=== PATIENT | female | born 1945 | race Caucasian/White ===

== ENCOUNTER 2016-04-25 14:03 | Inpatient (IN) | payer BC, OTHER ==
[~2016-04-25] VITALS: Ht 160 cm; Wt 81.0 kg
[~2016-04-25 14:03] MED LIST: ASPCH81X PO; ATOR-26 PO; CALCTAB65 PO; DYZ PO; GABA1CAP4 PO; LEVO75TA5 PO; METH1TAB5 PO; METO25TA3 PO; MISCCAP80 PO; MULT-506 PO; NTRGSL/4 UT; OXYC-57 PO; PARO1TAB27 PO; PRD/1 PO; SNK PO; TRIA3AER NAE; VALA500T60 PO
[2016-04-25] MEDS ORDERED: SODIUM CHLORIDE 0.9% 1000ML 1,000 ML IV ONE (14:21)
[2016-04-25] MEDS ORDERED: SODIUM CHLORIDE 0.9% 1000ML 1,000 ML IV STA ×2 (14:21→15:07)
[2016-04-25] MEDS ORDERED: PIPERACILLIN/TAZOBACTAM 4.5 GM/100ML D5W IV STA (14:29)
[2016-04-25] MEDS ORDERED: TRIA1SPR4 (14:39)
[2016-04-25] MEDS ORDERED: TRIA37.5 PO (14:39)
--- NOTE | 2016-04-25 14:46 | EMERGENCY ROOM VISIT NOTE ---
History Report prepared by Jeferson: Samson Lopez Under the Supervision of: Dr. Norman Aguilera M.D. First contact with patient: 14:11 Chief Complaint: WOUND INFECTION Stated Complaint: SURG. 04/17-INFECTION ON RT FOOT-REF. BY DOCTOR Nursing Triage Summary: patient reports surgery on 03/17/17 on right foot by Dr Nash. Patient placed on keflex for infection of surgical wound and today foot is more red swollen and foul odor coming from incision. 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 The patient had Charcot foot surgery on right foot on March 17. She has a history of diabetes and takes Metformin. In the past few days, the patient has had worsening swelling and erythema of the foot. Black spots have also appeared on the surgical site. A few days ago, she also started having a yellowish color drainage with some blood. The drainage was also very malodorous. The patient had called the orthopedic surgeon's office who placed her on Keflex without relief. The patient denies any recent falls or injuries, fevers, chills, chest pain, shortness of breath, calf pain/swelling, or any other complaints. Source of History: patient, spouse/significant other Onset: a few days ago Position: foot (right) Quality: other (swelling and erythema) Timing: worsening Modifying Factors (Relieving): other (Keflex without relief) Associated Symptoms: No SOB, No chest pain, No chills, No fevers Review of Systems See HPI for pertinent positives & negatives. A total of 10 systems reviewed and were otherwise negative. Past Medical & Surgical Medical Problems: (1) Charcot's arthropathy Old medical records were reviewed. Nurse's notes were reviewed and I agree with. Recently diagnosed with diabetes Family History Patient reports no known family medical history. Social History Smoking Status: Never Smoker Marital Status: Occupation Status: retired Current/Historical Medications Scheduled Aspirin (Aspirin Chewable), 81 MG PO BID Atorvastatin (Lipitor), 80 MG PO HS Calcium Carbonate-Vitamin D (Calcium 500 + D), 1 CHW PO QPM Gabapentin (Gabapentin), 300 CAP PO TID Levothyroxine Sodium (Levothyroxine Sodium), 75 MCG PO QAM Methenamine Hippurate (Methenamine Hippurate), 1 TAB PO BID Metoprolol Succinate (Toprol Xl), 25 MG PO HS Multivitamin (Multivitamin), 1 TAB PO QPM Nitroglycerin (Nitrostat), 0.4 MG UT PRN Paroxetine (Paxil), 20 MG PO HS Prednisone (Prednisone), 5 MG PO QAM Probiotic Product (Probiotic), 1 CAP PO QAM Senna (Senna Lax), 17.2 MG PO HS Triamterene/Hctz (Dyazide 37.5MG/25MG), 1 TAB PO QAM Valacyclovir (Valtrex), 500 MG PO QAM Miscellaneous Medications Triamcinolone Acetonide (Nasal (Nasacort Allergy 24Hr) Allergies Coded Allergies: Minocycline (Verified Allergy, Mild, HEADACHES, 04/25/16) Tetanus Toxoid (Verified Allergy, Mild, LOCALIZED REACTION, MADE HER FEEL SICK, 04/25/16) Amoxicillin (Verified Adverse Reaction, Unknown, "GOT C-DIFF", 04/25/16) Tetracycline (Verified Adverse Reaction, Unknown, HEADACHES, 04/25/16) Physical Exam Vital Signs Date Time Temp Pulse Resp B/P Pulse Ox O2 Delivery O2 Flow Rate FiO2 04/25/16 15:22 75 20 142/68 97 Room Air 04/25/16 14:36 98 Room Air 04/25/16 14:06 36.6 77 16 129/71 95 Physical Exam General: Non-ill appearing, older female, in no acute distress. HEENT: Normal cephalic atraumatic. Pupils are equal round and reactive to light. Extraocular movements are intact. Oropharynx is pink with moist mucous membranes. No swelling of the mouth lips or tongue. Neck: Supple with a midline trachea. No meningeal signs or stiffness, no JVD or bruits. No Stridor. Chest: Clear to auscultation bilaterally. No wheezes or rhonchi. No increased work of breathing. Heart: regular rate and rhythm. Abdomen: Soft nontender, nondistended without rebound guarding or rigidity. Extremities: Right foot is swollen. There is a black scab laterally with surrounding pink skin. No overt drainage present. Spine/Back. Non tender to palpation. No CVA tenderness Skin: Good turgor without rashes. Neurologic exam: Cranial nerves two through 12 are intact. Motor and sensation are intact and symmetrical throughout. Medical Decision & Procedures ER Provider Diagnostic Interpretation: X-ray results as stated below per interpretation by me and the radiologist: CHEST ONE VIEW PORTABLE CLINICAL HISTORY: Sepsis COMPARISON STUDY: 06/24/2012 FINDINGS: There are postsurgical changes of a midline sternotomy. The heart is normal in size. There is no failure. There is no focal pulmonary consolidation. There are no pleural effusions.[ IMPRESSION: No active disease in the chest. Electronically signed by: Wilfredo Bah M.D. 04/25/2016 2:54 PM Dictated Date/Time: 04/25/2016 2:54 PM RIGHT FOOT 3 VIEWS HISTORY: Right foot infection. COMPARISON: Right foot 03/17/2016. FINDINGS: Extensive fusion throughout the mid foot with with cortical plates and screws. There are areas of heterotopic ossification and fragmentation throughout the midfoot. This suggests partial healing. The hardware appears intact. No significant periprosthetic lucency at this time. No bony erosions identified. However, this is difficult to assess due to the extensive metallic hardware. No fracture or dislocation. Diffuse soft tissue swelling within the mid foot. IMPRESSION: Extensive fusion hardware throughout the midfoot which markedly limits the evaluation for bony destruction. The hardware appears intact. No significant periprosthetic lucency at this time. Significant soft tissue swelling throughout the mid foot. Electronically signed by: Scotty Stevenson M.D. 04/25/2016 3:32 PM Dictated Date/Time: 04/25/2016 3:04 PM Laboratory Results 04/25/16 14:28 Red Blood Count 4.19, Mean Corpuscular Volume 94.7, Mean Corpuscular Hemoglobin 32.2, Mean Corpuscular Hemoglobin Concent 34.0, Mean Platelet Volume 9.6, Neutrophils (%) (Auto) 74.9, Lymphocytes (%) (Auto) 15.6, Monocytes (%) (Auto) 7.6, Eosinophils (%) (Auto) 1.1, Basophils (%) (Auto) 0.3, Neutrophils # (Auto) 9.28, Lymphocytes # (Auto) 1.94, Monocytes # (Auto) 0.94, Eosinophils # (Auto) 0.14, Basophils # (Auto) 0.04 04/25/16 14:28 Test 04/25/16 14:28 04/25/16 14:31 04/25/16 15:33 White Blood Count 12.40 K/uL (4.8-10.8) Red Blood Count 4.19 M/uL (4.2-5.4) Hemoglobin 13.5 g/dL (12.0-16.0) Hematocrit 39.7 % (37-47) Mean Corpuscular Volume 94.7 fL (80-100) Mean Corpuscular Hemoglobin 32.2 pg (25-34) Mean Corpuscular Hemoglobin Concent 34.0 g/dl (32-36) Platelet Count 391 K/uL (130-400) Mean Platelet Volume 9.6 fL (7.4-10.4) Neutrophils (%) (Auto) 74.9 % Lymphocytes (%) (Auto) 15.6 % Monocytes (%) (Auto) 7.6 % Eosinophils (%) (Auto) 1.1 % Basophils (%) (Auto) 0.3 % Neutrophils # (Auto) 9.28 K/uL (1.4-6.5) Lymphocytes # (Auto) 1.94 K/uL (1.2-3.4) Monocytes # (Auto) 0.94 K/uL (0.11-0.59) Eosinophils # (Auto) 0.14 K/uL (0-0.5) Basophils # (Auto) 0.04 K/uL (0-0.2) RDW Standard Deviation 47.8 fL (36.4-46.3) RDW Coefficient of Variation 13.8 % (11.5-14.5) Immature Granulocyte % (Auto) 0.5 % Immature Granulocyte # (Auto) 0.06 K/uL (0.00-0.02) Prothrombin Time 10.8 SECONDS (9.0-12.0) Prothromb Time International Ratio 1.0 (0.9-1.1) Activated Partial Thromboplast Time 24.6 SECONDS (21.0-31.0) Partial Thromboplastin Ratio 0.9 Anion Gap 13.0 mmol/L (3-11) Est Creatinine Clear Calc Drug Dose 56.5 ml/min Estimated GFR () 72.6 Estimated GFR (Non- 62.6 BUN/Creatinine Ratio 19.3 (10-20) Calcium Level 9.6 mg/dl (8.5-10.1) Total Bilirubin 0.8 mg/dl (0.2-1) Aspartate Amino Transf (AST/SGOT) 24 U/L (15-37) Alanine Aminotransferase (ALT/SGPT) 43 U/L (12-78) Alkaline Phosphatase 147 U/L (45-117) Total Protein 7.9 gm/dl (6.4-8.2) Albumin 3.6 gm/dl (3.4-5.0) Globulin 4.3 gm/dl (2.5-4.0) Albumin/Globulin Ratio 0.8 (0.9-2) Bedside Lactic Acid Venous 3.00 mmol/L (0.90-1.70) Bedside Glucose 117 mg/dl (70-90) Laboratory studies as stated above per my review. Medications Administered Medications (Trade) Dose Ordered Sig/Humphrey Route Start Time Stop Time Status Last Admin Dose Admin Sodium Chloride 1,000 ml @ 999 mls/hr Q1H1M STAT IV 04/25/16 14:21 04/25/16 15:21 DC 04/25/16 14:21 999 MLS/HR Vancomycin HCl/ Sodium Chloride (Vancomycin Inj/ Nss 500ml) 532 ml @ 200 mls/hr ONE ONCE IV 04/25/16 15:00 04/25/16 17:39 04/25/16 15:00 200 MLS/HR Piperacillin Sod/ Tazobactam Sod 4.5 gm 4.5 gm NOW STAT IV 04/25/16 14:29 04/25/16 14:30 DC 04/25/16 14:39 4.5 GM Sodium Chloride (Nss 1000ml) 1,000 ml @ 999 mls/hr Q1H1M STAT IV 04/25/16 15:07 04/25/16 16:07 04/25/16 15:14 999 MLS/HR ED Course 1411: Past medical records reviewed. The patient was evaluated in room A12B, and a complete history and physical examination were performed. 1421: Sodium Chloride 1000 ml @ 200 mls/hr IV, Sodium Chloride 1000 ml @ 999 mls /hr IV 1429: Zosyn IV 4.5 gm 1500: Vancomycin HCl 1600 mg/Sodium Chloride 532 ml @ 200 mls/hr IV 1507: Sodium Chloride 1000 ml @ 999 mls/hr IV 1508: Upon reevaluation, the patient is resting comfortably. I discussed the results and treatment plan with the patient. She verbalized agreement of the treatment plan. I spoke with Dr. Prescott, from [facility]. The patient will be evaluated for further management. Medical Decision Differential diagnosis includes but is not limited to wound infection, osteomyelitis, cellulitis, diabetic emergency, electrolyte or metabolic abnormality. This patient comes in as described above. She's had trouble with her right foot after having surgery about a month ago. She has a large scab and she's had drainage and redness. I'm concerned about her having diabetic foot infection. IV access established blood cultures were obtained. She was given broad- spectrum coverage with IV Zosyn and IV vancomycin. I discussed this with the ED pharmacist. Her lactic acid to come back elevated at 3 and her white count was elevated at 12.4. She was given fluid boluses in the ER other was initially normotensive and looks well. I initially ordered a 1 liter IV fluid bolus but ordered a second as well in order to get her abdomen approximately 30 mL/kg fluids. Her x-ray does not show any definite acute bony abnormality or do think she is be admitted for IV antibiotics and further treatment and evaluation. I consulted Dr. Dahl who saw the patient ER will admit her for these measures. Consults Time Called: [phone] Consulting Physician: Dr. Prescott, from [facility] Returned Call: [phone] Prescott, from [facility]. Impression Primary Impression: Sepsis Additional Impressions: Cellulitis of right foot Diabetic foot Scribe Attestation The scribe's documentation has been prepared under my direction and personally reviewed by me in its entirety. I confirm that the note above accurately reflects all work, treatment, procedures, and medical decision making performed by me. Departure Information Dispostion Being Evaluated By Hospitalist Referrals Reno Perez M.D. (PCP) Patient Instructions [facility] Problem Qualifiers
[2016-04-25 14:48] LABS: BASO % 0.3 %; BASO ABS # 0.04 K/uL (0-0.2); COMPLETE YES; EOS % 1.1 %; HEMATOCRIT 39.7 % (37-47); IG% 0.5 %; LYMPH % 15.6 %; LYMPH ABS # 1.94 K/uL (1.2-3.4); MEAN CELL VOLUME 94.7 fL (80-100); MEAN CORPUSCULAR HEMOGLOBIN 32.2 pg (25-34); MEAN PLATELET VOLUME 9.6 fL (7.4-10.4); MONO % 7.6 %; NEUT % 74.9 %; PLATELET COUNT 391 K/uL (130-400); RED BLOOD COUNT 4.19 M/uL (4.2-5.4)
--- NOTE | 2016-04-25 14:56 | DIAGNOSTIC IMAGING REPORT ---
CHEST ONE VIEW PORTABLE CLINICAL HISTORY: Sepsis COMPARISON STUDY: 06/24/2012 FINDINGS: There are postsurgical changes of a midline sternotomy. The heart is normal in size. There is no failure. There is no focal pulmonary consolidation. There are no pleural effusions.[ IMPRESSION: No active disease in the chest. Electronically signed by: Wilfredo Bah M.D. 04/25/2016 2:54 PM Dictated Date/Time: 04/25/2016 2:54 PM
[2016-04-25] MEDS ORDERED: VANCOMYCIN INJ 1,600 MG in SODIUM CHLORIDE 0.9% 500ML 500 ML IV ONE (15:00)
[2016-04-25 15:09] LABS: PARTIAL THROMBOPLASTIN RATIO 0.9; PROTHROMBIN TIME (PATIENT) 10.8 SECONDS (9.0-12.0)
[2016-04-25 15:11] LABS: BUN/CREATININE RATIO 19.3 (10-20); CALCIUM 9.6 mg/dl (8.5-10.1); CREATININE 0.92 mg/dl (0.60-1.20); POTASSIUM 3.6 mmol/L (3.5-5.1)
[2016-04-25 15:14] LABS: ALB/GLOB RATIO 0.8 (0.9-2)
--- NOTE | 2016-04-25 15:34 | DIAGNOSTIC IMAGING REPORT ---
RIGHT FOOT 3 VIEWS HISTORY: Right foot infection. COMPARISON: Right foot 03/17/2016. FINDINGS: Extensive fusion throughout the mid foot with with cortical plates and screws. There are areas of heterotopic ossification and fragmentation throughout the midfoot. This suggests partial healing. The hardware appears intact. No significant periprosthetic lucency at this time. No bony erosions identified. However, this is difficult to assess due to the extensive metallic hardware. No fracture or dislocation. Diffuse soft tissue swelling within the mid foot. IMPRESSION: Extensive fusion hardware throughout the midfoot which markedly limits the evaluation for bony destruction. The hardware appears intact. No significant periprosthetic lucency at this time. Significant soft tissue swelling throughout the mid foot. Electronically signed by: Scotty Stevenson M.D. 04/25/2016 3:32 PM Dictated Date/Time: 04/25/2016 3:04 PM
[2016-04-25] MEDS ORDERED: ALUMINUM/MAGNESIUM/SIMETH (MAALOX MAX) 30 ML UDC PO PRN (16:30)
[2016-04-25] MEDS ORDERED: GLUCOSE 40% GEL 15 GM TUBE PO PRN (16:30)
[2016-04-25] MEDS ORDERED: MAGNESIUM HYDROXIDE SUSP 30 ML UDC PO PRN (16:30)
[2016-04-25] MEDS ORDERED: LORAZEPAM 2 MG/ML 1 ML VIAL IV PRN ×2 (16:30)
[2016-04-25] MEDS ORDERED: DiphenhydrAMINE HCL 50 MG/ML VIAL IV PRN (16:30)
[2016-04-25] MEDS ORDERED: BISACODYL 10 MG SUPP PR PRN (16:30)
[2016-04-25] MEDS ORDERED: NITROGLYCERIN 0.4 MG SL PER TAB CHARGE UT PRN (16:30)
[2016-04-25] MEDS ORDERED: PROMETHAZINE HCL INJ 12.5 MG in SODIUM CHLORIDE 0.9% 50ML 50 ML IV PRN (16:30)
[2016-04-25] MEDS ORDERED: GLUCAGON FOR INJ 1 MG VIAL SQ PRN (16:30)
[2016-04-25] MEDS ORDERED: MoRPHine SULFATE 2 MG/ML CARP IV PRN (16:30)
[2016-04-25] MEDS ORDERED: ONDANSETRON INJ 2 MG/ML 2 ML VIAL IV PRN (16:30)
[2016-04-25] MEDS ORDERED: ACETAMINOPHEN 325 MG TAB PO PRN ×2 (16:30)
[2016-04-25] MEDS ORDERED: MoRPHine SULFATE 4 MG/ML 1 ML CARP\\VIAL IV PRN (16:30)
[2016-04-25] MEDS ORDERED: GLUCOSE 10 TABS/TUBE PO PRN (16:30)
[2016-04-25] MEDS ORDERED: DEXTROSE 50% 50 ML SYR IV PRN (16:30)
[2016-04-25] MEDS ORDERED: ZOLPIDEM TARTRATE 5 MG TAB PO PRN ×2 (16:30)
[2016-04-25 19:15] VITALS: BP 114/67; PULSE 78; TEMP 36.6; O2SAT 96
[2016-04-25] MEDS ORDERED: VANCOMYCIN CONSULT ACTIVE PRN (19:15)
--- NOTE | 2016-04-25 19:30 | History and Physical ---
History & Physical Date & Time of Service: Apr 25, 2016 at 19:21 Chief Complaint: Surg. 04/17-Infection On Rt Foot-Ref. By Doctor Primary Care Physician: Reno Perez M.D. 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 She has history of Charcot foot surgery on March 17. She reports that a few days ago she began having a malodorous, yellowish colored drainage with some blood from the wound. She had been placed on Keflex after calling her orthopedic surgeon's office without any significant improvement. She has been feeling generally fatigued over the past few months, which also presented be worse over the past few days. Past Medical/Surgical History Medical Problems: (1) Charcot's arthropathy Status: Resolved Family History Patient reports no known family medical history. Social History Smoking Status: Never Smoker Smokeless Tobacco Use: No Alcohol Use: socially Drug Use: none Marital Status: Housing status: lives with family Occupational Status: retired Immunizations History of Influenza Vaccine: Yes Influenza Vaccine Date: Feb 09, 2005 History of Tetanus Vaccine?: Yes Tetanus Immunization Date: Sep 09, 2004 History of Pneumococcal: No History of Hepatitis B Vaccine: No Multi-Drug Resistant Organisms History of MDRO: No Allergies Coded Allergies: Minocycline (Verified Allergy, Mild, HEADACHES, 04/25/16) Tetanus Toxoid (Verified Allergy, Mild, LOCALIZED REACTION, MADE HER FEEL SICK, 04/25/16) Amoxicillin (Verified Adverse Reaction, Unknown, "GOT C-DIFF", 04/25/16) Tetracycline (Verified Adverse Reaction, Unknown, HEADACHES, 04/25/16) Home Medications Scheduled Aspirin (Aspirin Chewable), 81 MG PO BID Atorvastatin (Lipitor), 80 MG PO HS Calcium Carbonate-Vitamin D (Calcium 500 + D), 1 CHW PO QPM Gabapentin (Gabapentin), 300 CAP PO TID Levothyroxine Sodium (Levothyroxine Sodium), 75 MCG PO QAM Methenamine Hippurate (Methenamine Hippurate), 1 TAB PO BID Metoprolol Succinate (Toprol Xl), 25 MG PO HS Multivitamin (Multivitamin), 1 TAB PO QPM Nitroglycerin (Nitrostat), 0.4 MG UT PRN Paroxetine (Paxil), 20 MG PO HS Prednisone (Prednisone), 5 MG PO QAM Probiotic Product (Probiotic), 1 CAP PO QAM Senna (Senna Lax), 17.2 MG PO HS Triamterene/Hctz (Dyazide 37.5MG/25MG), 1 TAB PO QAM Valacyclovir (Valtrex), 500 MG PO QAM Miscellaneous Medications Triamcinolone Acetonide (Nasal (Nasacort Allergy 24Hr) Review of Systems The patient denies chest pain, palpitations, shortness of breath, cough, vision change, hearing change, sore throat, fevers, chills, sweats, nausea, vomiting, abdominal pain, pelvic pain, blood in urine or stool, dysuria, urinary frequency or urgency, lightheadedness, dizziness, headache, memory loss, rash, arthralgias or myalgias, back or neck pain, night sweats, or allergy symptoms. The review of systems is otherwise negative other than for that already noted above, and at least 10 systems have been reviewed. Physical Exam Vital Signs Date Time Temp Pulse Resp B/P Pulse Ox O2 Delivery O2 Flow Rate FiO2 04/25/16 19:02 75 20 144/71 98 04/25/16 17:33 79 20 144/71 99 Room Air 04/25/16 16:30 78 20 145/78 99 Room Air 04/25/16 16:11 77 04/25/16 15:22 75 20 142/68 97 Room Air 04/25/16 14:36 98 Room Air 04/25/16 14:06 36.6 77 16 129/71 95 The patient is awake, well-developed and adequately nourished, alert and oriented 3, normocephalic and atraumatic, lying in bed and in no acute distress. HEENT--PERRL, EOMI, mucous membranes and oropharynx moist. Neck--supple, no JVD or bruits, thyroid normal, trachea midline, no adenopathy. Heart--normal S1 and S2, no extra beats, no murmurs, rubs or gallops. Lungs--clear bilaterally with good air movement, no respiratory distress, no accessory muscle use. Abdomen--normal bowel sounds and soft, nontender and nondistended, no hernias or masses, no organomegaly. Extremities--left lower extremity with no cyanosis, clubbing or edema. Right lower extremity with 2+ pedal edema with surface abrasions on the foot draining laterally greater than medially There are good distal pulses b/l. Dermatologic--normal skin turgor, normal color, warm and dry, no abnormal lymph nodes, no rash. Neurologic--cranial nerves II through XII grossly intact, motor and sensory examination normal. Rheumatologic--normal range of motion, nontender, muscles and joints. Psychiatric--normal affect. Diagnostics Laboratory Results Results Past 24 Hours Test 04/25/16 14:28 04/25/16 14:31 04/25/16 15:33 Range/Units White Blood Count 12.40 4.8-10.8 K/uL Red Blood Count 4.19 4.2-5.4 M/uL Hemoglobin 13.5 12.0-16.0 g/dL Hematocrit 39.7 37-47 % Mean Corpuscular Volume 94.7 80-100 fL Mean Corpuscular Hemoglobin 32.2 25-34 pg Mean Corpuscular Hemoglobin Concent 34.0 32-36 g/dl Platelet Count 391 130-400 K/uL Mean Platelet Volume 9.6 7.4-10.4 fL Neutrophils (%) (Auto) 74.9 % Lymphocytes (%) (Auto) 15.6 % Monocytes (%) (Auto) 7.6 % Eosinophils (%) (Auto) 1.1 % Basophils (%) (Auto) 0.3 % Neutrophils # (Auto) 9.28 1.4-6.5 K/uL Lymphocytes # (Auto) 1.94 1.2-3.4 K/uL Monocytes # (Auto) 0.94 0.11-0.59 K/uL Eosinophils # (Auto) 0.14 0-0.5 K/uL Basophils # (Auto) 0.04 0-0.2 K/uL RDW Standard Deviation 47.8 36.4-46.3 fL RDW Coefficient of Variation 13.8 11.5-14.5 % Immature Granulocyte % (Auto) 0.5 % Immature Granulocyte # (Auto) 0.06 0.00-0.02 K/uL Prothrombin Time 10.8 9.0-12.0 SECONDS Prothromb Time International Ratio 1.0 0.9-1.1 Activated Partial Thromboplast Time 24.6 21.0-31.0 SECONDS Partial Thromboplastin Ratio 0.9 Sodium Level 139 136-145 mmol/L Potassium Level 3.6 3.5-5.1 mmol/L Chloride Level 100 98-107 mmol/L Carbon Dioxide Level 26 21-32 mmol/L Anion Gap 13.0 3-11 mmol/L Blood Urea Nitrogen 18 7-18 mg/dl Creatinine 0.92 0.60-1.20 mg/dl Est Creatinine Clear Calc Drug Dose 56.5 ml/min Estimated GFR () 72.6 Estimated GFR (Non- 62.6 BUN/Creatinine Ratio 19.3 10-20 Random Glucose 119 70-99 mg/dl Calcium Level 9.6 8.5-10.1 mg/dl Total Bilirubin 0.8 0.2-1 mg/dl Aspartate Amino Transf (AST/SGOT) 24 15-37 U/L Alanine Aminotransferase (ALT/SGPT) 43 12-78 U/L Alkaline Phosphatase 147 45-117 U/L Total Protein 7.9 6.4-8.2 gm/dl Albumin 3.6 3.4-5.0 gm/dl Globulin 4.3 2.5-4.0 gm/dl Albumin/Globulin Ratio 0.8 0.9-2 Bedside Lactic Acid Venous 3.00 0.90-1.70 mmol/L Bedside Glucose 117 70-90 mg/dl Microbiology Results 04/25/16 Blood Culture, Received Pending 04/25/16 Blood Culture, Received Pending 04/25/16 Gram Stain - Preliminary, Resulted 04/25/16 Wound Culture, Resulted Pending Diagnostic Radiology Patient Name: KATY DING Unit Number: [id number] Dictated: 04/25/161503 Transcribed: 04/25/161503 [employer] Printed Date/Time: [~ rep prt dt]/[~ rep prt tm] [~ rep ct labl] - [~ rep ct ivnm] [facility] [place] [address] Dictated: 04/25/161503 Transcribed: 04/25/161503 [employer] Printed Date/Time: [~ rep prt dt]/[~ rep prt tm] [~ rep ct labl] - [~ rep ct ivnm] RIGHT FOOT 3 VIEWS HISTORY: Right foot infection. COMPARISON: Right foot 03/17/2016. FINDINGS: Extensive fusion throughout the mid foot with with cortical plates and screws. There are areas of heterotopic ossification and fragmentation throughout the midfoot. This suggests partial healing. The hardware appears intact. No significant periprosthetic lucency at this time. No bony erosions identified. However, this is difficult to assess due to the extensive metallic hardware. No fracture or dislocation. Diffuse soft tissue swelling within the mid foot. IMPRESSION: Extensive fusion hardware throughout the midfoot which markedly limits the evaluation for bony destruction. The hardware appears intact. No significant periprosthetic lucency at this time. Significant soft tissue swelling throughout the mid foot. Electronically signed by: Scotty Stevenson M.D. 04/25/2016 3:32 PM Dictated Date/Time: 04/25/2016 3:04 PM The status of this report is Signed. Draft = Not yet reviewed or approved by Radiologist. Signed = Reviewed and approved by Radiologist. <AttendingPhy></AttendingPhy> <FamilyPhy>Goran Nash D.O.</FamilyPhy> < PrimaryPhy>Reno Perez M.D.</PrimaryPhy> <UnitNumber>[id number]</UnitNumber> < VisitNumber>[id number]</VisitNumber> <PatientName>KATY DING</PatientName> < DateOfBirth>1945</DateOfBirth> <Location>[facility]</Location> <ServiceDate></ServiceDate> <MNE>ESIINDIAI</MNE> <OrderingPhy>Norman Aguilera M.D.</ OrderingPhy> <OrderingPhyMNE>f rep ord dr marshall</OrderingPhyMNE> <DictatingPhyMNE> f rep dict dr marshall</DictatingPhyMNE> <CCListMNE>f rep ct [place]</CCListMNE> < AdmittingPhyMNE>f pt admit dr marshall</AdmittingPhyMNE> <AttendingPhyMNE>f pt attend dr marshall</AttendingPhyMNE> <ConsultingPhyMNE>f pt consult dr marshall</ConsultingPhyMNE> <FamilyPhyMNE>f pt fam dr marshall</FamilyPhyMNE> <OtherPhyMNE>f pt other dr marshall</OtherPhyMNE> < PrimaryPhyMNE>f pt prim care dr marshall</PrimaryPhyMNE> <ReferringPhyMNE>f pt referring dr marshall</ReferringPhyMNE> Patient Name: KATY DING Unit Number: [id number] Dictated: 04/25/161453 Transcribed: 04/25/161453 [employer] Printed Date/Time: [~ rep prt dt]/[~ rep prt tm] [~ rep ct labl] - [~ rep ct ivnm] [facility] Radiology Department [place], [place] [id number] Dictated: 04/25/161453 Transcribed: 04/25/161453 [employer] Printed Date/Time: [~ rep prt dt]/[~ rep prt tm] [~ rep ct labl] - [~ rep ct ivnm] [~ rep ct add3]] CHEST ONE VIEW PORTABLE CLINICAL HISTORY: Sepsis COMPARISON STUDY: 06/24/2012 FINDINGS: There are postsurgical changes of a midline sternotomy. The heart is normal in size. There is no failure. There is no focal pulmonary consolidation. There are no pleural effusions.[ IMPRESSION: No active disease in the chest. Electronically signed by: Wilfredo Bah M.D. 04/25/2016 2:54 PM Dictated Date/Time: 04/25/2016 2:54 PM The status of this report is Signed. Draft = Not yet reviewed or approved by Radiologist. Signed = Reviewed and approved by Radiologist. <AttendingPhy></AttendingPhy> <FamilyPhy>Goran Nash D.O.</FamilyPhy> < PrimaryPhy>Reno Perez M.D.</PrimaryPhy> <UnitNumber>[id number]</UnitNumber> < VisitNumber>[id number]</VisitNumber> <PatientName>KATY DING</PatientName> < DateOfBirth>1945</DateOfBirth> <Location>[facility]</Location> <ServiceDate></ServiceDate> <MNE>ESINDI</MNE> <OrderingPhy>Norman Aguilera M.D.</ OrderingPhy> <OrderingPhyMNE>f rep ord dr marshall</OrderingPhyMNE> <DictatingPhyMNE> f rep dict dr marshall</DictatingPhyMNE> <CCListMNE>f rep ct mne</CCListMNE> < AdmittingPhyMNE>f pt admit dr marshall</AdmittingPhyMNE> <AttendingPhyMNE>f pt attend dr marshall</AttendingPhyMNE> <ConsultingPhyMNE>f pt consult dr marshall</ConsultingPhyMNE> <FamilyPhyMNE>f pt fam dr marshall</FamilyPhyMNE> <OtherPhyMNE>f pt other dr marshall</OtherPhyMNE> < PrimaryPhyMNE>f pt prim care dr marshall</PrimaryPhyMNE> <ReferringPhyMNE>f pt referring dr marshall</ReferringPhyMNE> Impression Assessment and Plan Charcot's arthropathy/status post surgical repair 03/17/2017/diabetic foot infection--the patient will be admitted to the medical surgical floor. She'll be placed on vancomycin IV per renal dosing, and a screening in 2000 mg IV every 8 hours. We'll order three-phase limited bone scan to assess for possible osteomyelitis. Continue prednisone 5 mg by mouth every morning without stress dosing at this time. We'll increase probiotic to Floranex 3 tablets by mouth 4 times a day Diabetes mellitus--place on Accu-Cheks before meals and at bedtime with NovoLog coverage. Hypercholesterolemia--continue atorvastatin 80 mg by mouth at bedtime. CAD/Hypertension--continue metoprolol succinate 25 mg by mouth at bedtime and triamterene/HCTZ 37.5/25 every morning. Continue nitroglycerin sublingual 0.4 mg when necessary chest pain, and chewable aspirin 81 mg by mouth twice a day. Peripheral neuropathy--continue gabapentin 3 mg by mouth 3 times a day. Hypothyroidism--continue levothyroxine sodium at 75 g by mouth every morning. Depression--continue Peroxin teen 20 mg by mouth at bedtime. UTI prophylaxis--continue methenamine hippurate 1 tablet by mouth twice a day. Viral suppression--continue Valtrex 500 mg by mouth every morning. Level of Care Med/Surg Advanced Directives Existing Advance Directive: No Existing Living Will: No Existing Power of Aircraft Instrument Repairer: No Resuscitation Status FULL RESUSCITATION VTE Prophylaxis VTE Risk Assessment Done? Y/N: Yes Risk Level: Moderate Given or contraindicated: SCD's
[2016-04-25] MEDS ORDERED: ASPIRIN 81 MG ECTAB PO SCH (20:00)
--- NOTE | 2016-04-25 20:06 | Pharmacy Progress Note ---
Pharmacy Antibiotic Consult Date of Service: Apr 25, 2016. Pharmacy Dosing Scope Pharmacy is consulted to initiate vancomycin IV dosing therapy, order appropriate labs and adjust drug dose/frequency. Subjective The patient is a 70 year old female admitted on Apr 25, 2016 at 16:27. Objective Height (Feet): 5 Height (Inches): 3.00 Weight (Kilograms): 81.000 Lab Results (24hrs): Laboratory Tests Test 04/25/16 14:28 BUN/Creatinine Ratio 19.3 Blood Urea Nitrogen 18 mg/dl Creatinine 0.92 mg/dl White Blood Count 12.40 K/uL Red Blood Count 4.19 M/uL Hemoglobin 13.5 g/dL Hematocrit 39.7 % Mean Corpuscular Volume 94.7 fL Mean Corpuscular Hemoglobin 32.2 pg Mean Corpuscular Hemoglobin Concent 34.0 g/dl Platelet Count 391 K/uL Mean Platelet Volume 9.6 fL Neutrophils (%) (Auto) 74.9 % Lymphocytes (%) (Auto) 15.6 % Monocytes (%) (Auto) 7.6 % Eosinophils (%) (Auto) 1.1 % Basophils (%) (Auto) 0.3 % Neutrophils # (Auto) 9.28 K/uL Lymphocytes # (Auto) 1.94 K/uL Monocytes # (Auto) 0.94 K/uL Eosinophils # (Auto) 0.14 K/uL Basophils # (Auto) 0.04 K/uL Assessment & Plan Assessment * 70 yo F with cellulitis and ?osteomyelitis 2nd recent Charcot foot surgery on 03/17/16 - failed Keflex as outpatient. Malodorous discharge noted from site. WBC slightly elevated. On aztreonam, vancomycin, metronidazole * Vancomycin 1600 mg x1 (20 mg/kg) already administered * Goal vancomycin trough 15-20 mcg/mL for now 2nd risk for osteomyelitis - may be able to decrease to 10-15 mcg/mL if osteomyelitis ruled out and pending susceptibilities/ELVIN evaluation * Will dose slightly aggressively (in terms of interval) initially 2nd risk for osteomyelitis - dose may be altered if osteomyelitis ruled out * Since will be aggressive with interval, will be less aggressive with dose and will target 12 mg/kg/dose * Trough prior to 4th overall dose Plan * Vancomycin 1000 mg IV q12h * Trough 04/27 @ 0330 Pharmacy will continue to follow and will adjust dose/frequency as necessary. Thank you
[2016-04-25] MEDS: AZTREONAM IV 2,000 MG in DEXTROSE 5% 100ML 100 ML IV SCH (20:53)
[2016-04-25] MEDS: METRONIDAZOLE 250 MG TAB PO SCH (20:54)
[2016-04-25] MEDS: INSULIN ASPART 100 UNITS/ML 3 ML PEN SC SCH (20:55)
[2016-04-25] MEDS: GABAPENTIN 300 MG CAP PO SCH (20:56)
[2016-04-25] MEDS: MULTIVITAMIN TAB PO SCH (20:56)
[2016-04-25] MEDS: METOPROLOL SUCC 25MG EXT REL TAB PO SCH (20:57)
[2016-04-25] MEDS: PAROXETINE 20 MG TAB PO SCH (20:57)
[2016-04-25] MEDS: SENNA 8.6 MG TAB PO SCH (20:57)
[2016-04-25] MEDS: METHENAMINE HIPPURATE 1 GM TAB PO SCH (20:58)
[2016-04-25] MEDS: DOCUSATE SODIUM 100 MG CAP PO SCH (20:58)
[2016-04-25] MEDS: ATORVASTATIN 40 MG TAB PO SCH (20:59)
[2016-04-25] MEDS: LACTOBACILLUS ACIDOPHILUS (FLORANEX) TAB PO SCH (22:01)
[2016-04-25 22:27] VITALS: Ht 160 cm; Wt 81.0 kg
[2016-04-26] MEDS: VANCOMYCIN INJ 1,000 MG in SODIUM CHLORIDE 0.9% 250ML 250 ML IV SCH ×2 (04:11→15:53)
[2016-04-26] MEDS: AZTREONAM IV 2,000 MG in DEXTROSE 5% 100ML 100 ML IV SCH ×3 (04:11→21:06)
[2016-04-26] MEDS: LEVOTHYROXINE 75 MCG TAB PO SCH (06:10)
[2016-04-26 06:55] LABS: BASO % 0.5 %; BASO ABS # 0.03 K/uL (0-0.2); COMPLETE YES; EOS % 3.1 %; HEMATOCRIT 36.2 % (37-47); IG% 0.6 %; LYMPH % 33.8 %; LYMPH ABS # 2.16 K/uL (1.2-3.4); MEAN CELL VOLUME 95.8 fL (80-100); MEAN CORPUSCULAR HGB CONC 32.3 g/dl (32-36); MEAN PLATELET VOLUME 9.5 fL (7.4-10.4); MONO % 11.1 %; NEUT % 50.9 %; PLATELET COUNT 299 K/uL (130-400); RED BLOOD COUNT 3.78 M/uL (4.2-5.4)
[2016-04-26 07:33] LABS: BUN/CREATININE RATIO 18.2 (10-20); CALCIUM 8.4 mg/dl (8.5-10.1); CREATININE 0.83 mg/dl (0.60-1.20); MAGNESIUM 1.8 mg/dl (1.8-2.4); POTASSIUM 3.4 mmol/L (3.5-5.1)
[2016-04-26] MEDS ORDERED: TRIAMCINOLONE ACET NASAL SPRAY 10.8ML BTL NAE SCH (08:00)
[2016-04-26 08:01] VITALS: BP 137/77; PULSE 67; TEMP 36.6; O2SAT 96
[2016-04-26] MEDS: INSULIN ASPART 100 UNITS/ML 3 ML PEN SC SCH ×4 (08:59→21:00)
[2016-04-26] MEDS: DOCUSATE SODIUM 100 MG CAP PO SCH ×2 (09:02→21:08)
[2016-04-26] MEDS: TRIAMTERENE/HCTZ 37.5/25MG CAP PO SCH (09:03)
[2016-04-26] MEDS: ASPIRIN 81 MG ECTAB PO SCH ×2 (09:04→21:08)
[2016-04-26] MEDS: METRONIDAZOLE 250 MG TAB PO SCH ×4 (09:04→21:07)
[2016-04-26] MEDS: GABAPENTIN 300 MG CAP PO SCH ×3 (09:05→21:09)
[2016-04-26] MEDS: LACTOBACILLUS ACIDOPHILUS (FLORANEX) TAB PO SCH ×3 (09:05→17:46)
[2016-04-26] MEDS: METHENAMINE HIPPURATE 1 GM TAB PO SCH ×2 (09:06→21:10)
--- NOTE | 2016-04-26 10:40 | Clinical Documentation Query ---
ANGELITA Rod : CLINICAL DOCUMENTATION QUERY Patient is a 70 year old female presenting with worsening swelling, redness, pain, and reported malodorous drainage in the setting of recent operative right foot reconstruction/fusion and diabetes. 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 Thank you. In your clinical opinion is this patient being managed for: ( ) (Likely/Suspected) Postoperative right foot infection (a complication of care) ( x ) Diabetic right foot ulcer infection ( ) Other explanation of clinical findings (Please Explain) ( ) Unable to determine (Please Define) ( ) Need to Discuss ( ) Not Agree The medical record reflects the following clinical findings, treatment, and risk factors. Clinical Indicators: As above Treatment: IV antibiotics, radiology, WOCN consultation Risk Factors: Age, recent surgery, diabetes Please clarify and document your clinical opinion in the progress notes and discharge summary. Terms such as "probable", "suspected", "likely", "questionable", "possible", or "still to be ruled out" are acceptable. IF IN AGREEMENT, YOU MUST DOCUMENT ABOVE DIAGNOSTIC STATEMENT IN DAILY PROGRESS NOTES AND DISCHARGE SUMMARY. This document is not part of the patient's record. Thank You, Norman Rob, RN [phone]
[2016-04-26 11:17] VITALS: BP 122/74; PULSE 68; TEMP 36.4; O2SAT 93
--- NOTE | 2016-04-26 11:33 | Hospitalist Progress Note ---
Hospitalist Progress Note Date of Service Apr 26, 2016. Subjective Pt evaluation today including: conversation w/ patient, physical exam, chart review, lab review, review of studies, review of inpatient medication list Pain: denies Patient denies any new complaints or issues overnight. Medications Current Inpatient Medications Medications (Trade) Dose Ordered Sig/Hupmhrey Route Start Time Stop Time Status Last Admin Dose Admin Acetaminophen (Tylenol Tab) 650 mg Q4H PRN PO 04/25/16 16:30 05/25/16 16:29 Zolpidem Tartrate (Ambien Tab) 5 mg HSZ PRN PO 04/25/16 16:30 05/25/16 16:29 Aspirin (Ecotrin Tab) 81 mg BID PO 04/26/16 08:00 05/26/16 08:59 04/26/16 09:04 81 MG Atorvastatin Calcium (Lipitor Tab) 80 mg HS PO 04/25/16 21:00 05/25/16 20:59 04/25/16 20:59 80 MG Gabapentin (Neurontin Cap) 300 mg TID PO 04/25/16 20:00 05/25/16 20:59 04/26/16 09:05 300 MG Levothyroxine Sodium (Synthroid Tab) 75 mcg DAILYBB PO 04/26/16 06:30 05/26/16 06:59 04/26/16 06:10 75 MCG Methenamine Hippurate (Urex Tab) 1 gm BID PO 04/25/16 20:00 04/30/16 20:59 04/26/16 09:06 1 GM Metoprolol Succinate (Toprol Xl Tab) 25 mg HS PO 04/25/16 21:00 05/25/16 20:59 04/25/16 20:57 25 MG Multivitamins (Multivitamin Tab) 1 tab QPM PO 04/25/16 21:00 05/25/16 20:59 04/25/16 20:56 1 TAB Nitroglycerin (Nitrostat Tab) 0.4 mg Q5M PRN [place] 04/25/16 16:30 05/25/16 16:29 Paroxetine HCl (pAXil TAB) 20 mg HS PO 04/25/16 21:00 05/25/16 20:59 04/25/16 20:57 20 MG Prednisone (PredniSONE TAB) 5 mg QAM PO 04/26/16 08:00 05/26/16 08:59 04/26/16 09:06 5 MG Senna (Senokot Tab) 17.2 mg HS PO 04/25/16 21:00 05/25/16 20:59 Triamcinolone Acetonide (Nasacort Allergy 24hr) 1 sprays DAILY PRISCILA 04/26/16 08:00 05/26/16 08:59 Triamterene/HCTZ (Dyazide 37.5/25 Mg Cap) 1 cap QAM PO 04/26/16 08:00 05/26/16 08:59 04/26/16 09:03 1 CAP Valacyclovir HCl (Valtrex Tab) 500 mg QAM PO 04/26/16 08:00 05/26/16 08:59 04/26/16 09:06 500 MG Lactobacillus Acidophilus (Floranex Tab) 4 tab TIDM PO 04/25/16 21:00 05/25/16 20:59 04/26/16 09:05 4 TAB Lorazepam (Ativan Inj) 0.5 mg Q4H PRN IV 04/25/16 16:30 05/25/16 16:29 Lorazepam (Ativan Inj) 1 mg Q4H PRN IV 04/25/16 16:30 05/25/16 16:29 Magnesium Hydroxide (Milk Of Magnesia Susp) 30 ml Q6H PRN PO 04/25/16 16:30 05/25/16 16:29 Bisacodyl (Dulcolax Supp) 10 mg DAILY PRN [place] 04/25/16 16:30 05/25/16 16:29 Diphenhydramine HCl (Benadryl Inj) 25 mg Q4H PRN IV 04/25/16 16:30 05/25/16 16:29 Al Hydrox/Mg Hydrox/ Simethicone 15 ml 15 ml Q4H PRN PO 04/25/16 16:30 05/25/16 16:29 Promethazine HCl/ Sodium Chloride (Phenergan Inj/ Nss 50ml) 50.5 ml @ 202 mls/hr Q4H PRN IV 04/25/16 16:30 05/25/16 16:29 Ondansetron HCl (Zofran Inj) 4 mg Q6H PRN IV 04/25/16 16:30 05/25/16 16:29 Docusate Sodium (coLACE CAP) 100 mg BID PO 04/25/16 20:00 05/25/16 20:59 04/26/16 09:02 100 MG Morphine Sulfate (MoRPHine SULFATE INJ) 2 mg Q2H PRN IV 04/25/16 16:30 05/09/16 16:29 Morphine Sulfate (MoRPHine SULFATE INJ) 4 mg Q2H PRN IV 04/25/16 16:30 05/09/16 16:29 Insulin Aspart (novoLOG ASPART) SLIDING SCALE If C... ACHS SC 04/25/16 21:00 05/25/16 20:59 04/26/16 08:59 4 UNITS Glucose (Glucose 40% Gel) UD PRN PO 04/25/16 16:30 05/25/16 16:29 Glucose (Glucose Chew Tab) 1 tabs UD PRN PO 04/25/16 16:30 05/25/16 16:29 Dextrose (Dextrose 50% 50ML Syringe) 50 ml UD PRN IV 04/25/16 16:30 05/25/16 16:29 Glucagon 1 mg 1 mg UD PRN SQ 04/25/16 16:30 05/25/16 16:29 Vancomycin HCl 1000 mg/Sodium Chloride 270 ml @ 125 mls/hr Q12H IV 04/26/16 04:00 05/26/16 03:59 04/26/16 04:11 125 MLS/HR Aztreonam/Dextrose (Azactam IV/D5 100ml) 110 ml @ 100 mls/hr Q8H IV 04/25/16 20:00 05/25/16 19:59 04/26/16 04:11 100 MLS/HR Metronidazole (Flagyl Tab) 250 mg QID PO 04/25/16 21:00 05/05/16 20:59 04/26/16 09:04 250 MG Vancomycin HCl (Consult) 1 ea UD PRN N/A 04/25/16 19:15 05/25/16 19:14 Objective Vital Signs Date Time Temp Pulse Resp B/P Pulse Ox O2 Delivery O2 Flow Rate FiO2 04/26/16 08:01 36.6 67 20 137/77 96 Room Air 04/26/16 00:00 Room Air 04/25/16 22:27 Room Air 04/25/16 19:15 36.6 78 20 114/67 96 Room Air 04/25/16 19:02 75 20 144/71 98 04/25/16 17:33 79 20 144/71 99 Room Air 04/25/16 16:30 78 20 145/78 99 Room Air 04/25/16 16:11 77 04/25/16 15:22 75 20 142/68 97 Room Air 04/25/16 14:36 98 Room Air 04/25/16 14:06 36.6 77 16 129/71 95 Physical Exam General Appearance: no apparent distress Eyes: sclerae normal Neck: no JVD Respiratory/Chest: normal breath sounds, no respiratory distress Cardiovascular: regular rate, rhythm Abdomen: normal bowel sounds, non tender, soft Extremities: no pedal edema Neurologic/Psychiatric: alert, oriented x 3 Skin: warm/dry, + pertinent finding (lateral aspect of right foot with large ulcer with necrotic appearing center, slightly erythematous around wound edges, no ralf purulence. Over medial aspect, the previous surgical incision is mostly healed except a few small areas not completely closed with sloughing or necrotic centers. no ralf pus here either.) Laboratory Results Last 24 Hours Test 04/25/16 14:28 04/25/16 14:31 04/25/16 15:33 04/25/16 20:01 White Blood Count 12.40 K/uL Red Blood Count 4.19 M/uL Hemoglobin 13.5 g/dL Hematocrit 39.7 % Mean Corpuscular Volume 94.7 fL Mean Corpuscular Hemoglobin 32.2 pg Mean Corpuscular Hemoglobin Concent 34.0 g/dl Platelet Count 391 K/uL Mean Platelet Volume 9.6 fL Neutrophils (%) (Auto) 74.9 % Lymphocytes (%) (Auto) 15.6 % Monocytes (%) (Auto) 7.6 % Eosinophils (%) (Auto) 1.1 % Basophils (%) (Auto) 0.3 % Neutrophils # (Auto) 9.28 K/uL Lymphocytes # (Auto) 1.94 K/uL Monocytes # (Auto) 0.94 K/uL Eosinophils # (Auto) 0.14 K/uL Basophils # (Auto) 0.04 K/uL RDW Standard Deviation 47.8 fL RDW Coefficient of Variation 13.8 % Immature Granulocyte % (Auto) 0.5 % Immature Granulocyte # (Auto) 0.06 K/uL Prothrombin Time 10.8 SECONDS Prothromb Time International Ratio 1.0 Activated Partial Thromboplast Time 24.6 SECONDS Partial Thromboplastin Ratio 0.9 Sodium Level 139 mmol/L Potassium Level 3.6 mmol/L Chloride Level 100 mmol/L Carbon Dioxide Level 26 mmol/L Anion Gap 13.0 mmol/L Blood Urea Nitrogen 18 mg/dl Creatinine 0.92 mg/dl Est Creatinine Clear Calc Drug Dose 56.5 ml/min Estimated GFR () 72.6 Estimated GFR (Non- 62.6 BUN/Creatinine Ratio 19.3 Random Glucose 119 mg/dl Calcium Level 9.6 mg/dl Total Bilirubin 0.8 mg/dl Aspartate Amino Transf (AST/SGOT) 24 U/L Alanine Aminotransferase (ALT/SGPT) 43 U/L Alkaline Phosphatase 147 U/L Total Protein 7.9 gm/dl Albumin 3.6 gm/dl Globulin 4.3 gm/dl Albumin/Globulin Ratio 0.8 Bedside Lactic Acid Venous 3.00 mmol/L Bedside Glucose 117 mg/dl 114 mg/dl Test 04/26/16 06:00 04/26/16 07:39 White Blood Count 6.40 K/uL Red Blood Count 3.78 M/uL Hemoglobin 11.7 g/dL Hematocrit 36.2 % Mean Corpuscular Volume 95.8 fL Mean Corpuscular Hemoglobin 31.0 pg Mean Corpuscular Hemoglobin Concent 32.3 g/dl Platelet Count 299 K/uL Mean Platelet Volume 9.5 fL Neutrophils (%) (Auto) 50.9 % Lymphocytes (%) (Auto) 33.8 % Monocytes (%) (Auto) 11.1 % Eosinophils (%) (Auto) 3.1 % Basophils (%) (Auto) 0.5 % Neutrophils # (Auto) 3.26 K/uL Lymphocytes # (Auto) 2.16 K/uL Monocytes # (Auto) 0.71 K/uL Eosinophils # (Auto) 0.20 K/uL Basophils # (Auto) 0.03 K/uL RDW Standard Deviation 49.3 fL RDW Coefficient of Variation 14.1 % Immature Granulocyte % (Auto) 0.6 % Immature Granulocyte # (Auto) 0.04 K/uL Prothrombin Time 11.0 SECONDS Prothromb Time International Ratio 1.0 Activated Partial Thromboplast Time 25.4 SECONDS Partial Thromboplastin Ratio 1.0 Sodium Level 143 mmol/L Potassium Level 3.4 mmol/L Chloride Level 107 mmol/L Carbon Dioxide Level 24 mmol/L Anion Gap 12.0 mmol/L Blood Urea Nitrogen 15 mg/dl Creatinine 0.83 mg/dl Est Creatinine Clear Calc Drug Dose 62.6 ml/min Estimated GFR () 82.2 Estimated GFR (Non- 70.9 BUN/Creatinine Ratio 18.2 Random Glucose 110 mg/dl Calcium Level 8.4 mg/dl Magnesium Level 1.8 mg/dl Total Bilirubin 0.8 mg/dl Direct Bilirubin 0.1 mg/dl Aspartate Amino Transf (AST/SGOT) 20 U/L Alanine Aminotransferase (ALT/SGPT) 32 U/L Alkaline Phosphatase 122 U/L Total Protein 6.6 gm/dl Albumin 2.7 gm/dl Bedside Glucose 104 mg/dl Assessment and Plan (1) Diabetic foot infection Assessment & Plan: Wound culture is already growing Staph species. Will continue vanco until sensi back. Will also keep gram negative and anaerobe coverage until cultures final. Will consult Dr. Nash from Ortho and await bone scan. 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 Continue with dressing changes per Wound Care nurse. (2) Charcot's arthropathy Assessment & Plan: S/p reconstruction in 02/2016 (3) DM2 (diabetes mellitus, type 2) Assessment & Plan: Optimally controlled with present sliding scale coverage. Will continue. (4) Diabetic neuropathy associated with type 2 diabetes mellitus Assessment & Plan: Continue gabapentin. (5) CAD (coronary artery disease) Assessment & Plan: Stable. No evidence of ischemia at this time. Continue ASA , statin, and beta inocente. (6) Hypothyroidism Assessment & Plan: Continue Synthroid. (7) HTN (hypertension) Assessment & Plan: Controlled with triamterene/HCTZ and beta inocente. Will continue. (8) Dyslipidemia Assessment & Plan: Continue statin. (9) Fibromyalgia Assessment & Plan: Continue Paxil and gabapentin. (10) Psoriatic arthritis Assessment & Plan: On chronic Prednisone, which is continued. (11) DVT prophylaxis Assessment & Plan: SCDs Continued [facility] stay due to: multiple IV medications needed Discharge planning: uncertain
--- NOTE | 2016-04-26 14:45 | DIAGNOSTIC IMAGING REPORT ---
BONE SCAN 3 PHASE LIMITED HISTORY: RIGHT FOOT swelling, PLEASE COMPARE TO X-RAY TECHNIQUE: Immediately and 3 hours following the intravenous administration of 26.3 mCi of technetium 99 M MDP, 3 phase bone scan of the feet were performed. COMPARISON STUDY: Right foot radiograph 04/25/2016. FINDINGS: There is positive three-phase uptake within the right midfoot. No abnormal radiotracer uptake seen within the left foot. IMPRESSION: Positive three-phase uptake within the right foot. However, this is nonspecific and could be due to the recent postoperative change or underlying infectious process. In addition, evaluation of the mid foot with a CT or MRI would also be of limited value given the extensive metallic hardware. Electronically signed by: Scotty Stevenson M.D. 04/26/2016 2:44 PM Dictated Date/Time: 04/26/2016 2:39 PM
[2016-04-26 15:41] VITALS: BP 108/68; PULSE 71; TEMP 36.6; O2SAT 93
--- NOTE | 2016-04-26 17:25 | CONSULTATION REPORT ---
DATE OF CONSULTATION: 04/26/2016 REASON FOR CONSULTATION: Right foot cellulitis. HISTORY OF PRESENT ILLNESS: Nadia is a pleasant 70-year-old female who underwent surgery on her right foot for a right foot Charcot arthropathy performed by Dr. Nash on 03/17/2016. She states that she initially had an uneventful postoperative course, approximately 2 weeks ago, noted to have some redness around her incisions. She had contacted the office on 04/21/2016 and was placed on Keflex at that time. She presented to the Emergency Room on 04/25/2016 for worsening swelling, redness and discomfort of her right foot. She also notes that a few days ago she began to have a yellowish colored drainage from the wound. She denies fevers or chills, but has been feeling generally fatigued over the past few weeks. PAST MEDICAL HISTORY: 1. Hypertension. 2. High cholesterol. 3. History of CO in August 2014. 4. Anxiety and depression. 5. Fibromyalgia. 6. Hypothyroidism. 7. Anemia. 8. Acid reflux. 9. Obesity. 10. Type 2 diabetes. 11. Diabetic neuropathy. ALLERGIES: 1. TETRACYCLINE CAUSES HEADACHES. 2. AMOXICILLIN. 3. MINOCYCLINE. 4. TETANUS TOXOID. CURRENT MEDICATIONS: 1. Aspirin 81 mg twice a day. 2. Lipitor 80 mg daily. 3. Calcium carbonate. 4. Gabapentin 300 mg t.i.d. 5. Levothyroxine 75 mcg daily. 6. Metoprolol 25 mg daily. 7. Multivitamin. 8. Paxil 20 mg daily. 9. Prednisone 5 mg daily. 10. Probiotic. 11. Senokot. 12. Dyazide 37.5/25 mg daily. 13. Valtrex 500 mg daily. PAST SURGICAL HISTORY: 1. Right foot surgery as mentioned above. 2. Heart catheterization in 2014. FAMILY HISTORY: Noncontributory. SOCIAL HISTORY: The patient denies a history of smoking or tobacco use, has occasional alcoholic drink. REVIEW OF SYSTEMS: Otherwise negative. Please see HPI for pertinent positives. PHYSICAL EXAMINATION: VITAL SIGNS: Temperature is 36.6, pulse 71, respirations 15, blood pressure is 108/68, O2 sat 93% on room air. HEENT: Normocephalic, atraumatic. EXTREMITIES: Attention to her right lower extremity. She has medial and lateral incisions noted. Along the lateral incision there is surrounding erythema as well as eschar noted approx 2.5cm x 2 cm at the proximal area of the incision. Minimal drainage noted on to dressing. There is no streaking up the extremity. Moderate swelling noted. Medial incision line has yellowish discharge noted again with mild erythema surrounding, no streaking noted. LABORATORIES: White blood cells on 04/26/2016 was 6.4, red blood cells 3.78, hemoglobin is 11.7, hematocrit is 36.6, platelet count 299. Plain films right foot show extensive fusion throughout the midfoot, hardware intact. No significant lucency noted. Bone scan ordered shows a positive 3-phase uptake; however, nonspecific, could be due to recent postoperative changes or question of underlying infectious process. IMPRESSION: 1. Status post right foot surgery by Dr. Nash on 03/17/2016 for Charcot foot, with postoperative wound infection noted. At this point in time, will continue with wound care, daily dressing changes. Discussed case with Dr. Nash, will make patient n.p.o. after midnight for possible I\T\D tomorrow versus bedside debridement. Will continue with vancomycin pending sensitivity. Wound cultures growing Staph species with sensitivity to follow. Gram stain moderate, WBCs with moderate Gram positive cocci noted. We will continue with IV antibiotics at this time, monitor overnight and recheck tomorrow morning and make final decision at that time. PRADEEP
[2016-04-26] MEDS: TRIAMCINOLONE ACET NASAL SPRAY 10.8ML BTL NAE SCH (21:11)
[2016-04-26] MEDS: SENNA 8.6 MG TAB PO SCH (21:16)
[2016-04-26] MEDS: PAROXETINE 20 MG TAB PO SCH (21:17)
[2016-04-26] MEDS: MULTIVITAMIN TAB PO SCH (21:18)
[2016-04-26] MEDS: ATORVASTATIN 40 MG TAB PO SCH (21:18)
[2016-04-26 21:28] VITALS: BP 126/74; PULSE 73; TEMP 36.8; O2SAT 95
[2016-04-26] MEDS: METOPROLOL SUCC 25MG EXT REL TAB PO SCH (21:32)
[2016-04-26 23:08] VITALS: BP 126/76; PULSE 60; TEMP 36.5; O2SAT 95
[2016-04-27] MEDS ORDERED: VANCOMYCIN TROUGH ONE (03:30)
[2016-04-27] MEDS: AZTREONAM IV 2,000 MG in DEXTROSE 5% 100ML 100 ML IV SCH ×3 (03:54→20:34)
[2016-04-27] MEDS: VANCOMYCIN INJ 1,000 MG in SODIUM CHLORIDE 0.9% 250ML 250 ML IV SCH (03:54)
[2016-04-27 04:16] LABS: PARTIAL THROMBOPLASTIN RATIO 0.8; PROTHROMBIN TIME (PATIENT) 10.7 SECONDS (9.0-12.0)
[2016-04-27 04:25] LABS: BUN/CREATININE RATIO 20.5 (10-20); CALCIUM 8.6 mg/dl (8.5-10.1); CREATININE 0.85 mg/dl (0.60-1.20); POTASSIUM 3.5 mmol/L (3.5-5.1)
[2016-04-27] MEDS: LEVOTHYROXINE 75 MCG TAB PO SCH (04:56)
[2016-04-27 07:28] LABS: BASO % 0.7 %; BASO ABS # 0.05 K/uL (0-0.2); COMPLETE YES; IG% 0.4 %; LYMPH % 41.1 %; LYMPH ABS # 3.11 K/uL (1.2-3.4); MEAN CELL VOLUME 94.3 fL (80-100); MEAN CORPUSCULAR HGB CONC 32.9 g/dl (32-36); MEAN PLATELET VOLUME 9.5 fL (7.4-10.4); MONO % 8.2 %; NEUT % 46.6 %; PLATELET COUNT 332 K/uL (130-400); RED BLOOD COUNT 4.03 M/uL (4.2-5.4); WHITE BLOOD COUNT 7.56 K/uL (4.8-10.8)
[2016-04-27 07:56] VITALS: BP 117/75; PULSE 66; TEMP 36.5; O2SAT 98
[2016-04-27] MEDS: METRONIDAZOLE 250 MG TAB PO SCH ×4 (08:00→20:36)
[2016-04-27] MEDS: INSULIN ASPART 100 UNITS/ML 3 ML PEN SC SCH ×4 (10:11→20:43)
[2016-04-27 11:21] VITALS: BP 147/83; PULSE 60; TEMP 36.5; O2SAT 99
[2016-04-27] MEDS: LACTOBACILLUS ACIDOPHILUS (FLORANEX) TAB PO SCH ×3 (11:26→17:10)
[2016-04-27] MEDS: DOCUSATE SODIUM 100 MG CAP PO SCH ×2 (11:27→20:35)
[2016-04-27] MEDS: GABAPENTIN 300 MG CAP PO SCH ×3 (11:28→20:37)
[2016-04-27] MEDS: TRIAMTERENE/HCTZ 37.5/25MG CAP PO SCH (11:28)
[2016-04-27] MEDS: METHENAMINE HIPPURATE 1 GM TAB PO SCH ×2 (11:28→20:37)
[2016-04-27] MEDS: ASPIRIN 81 MG ECTAB PO SCH ×2 (11:28→20:36)
--- NOTE | 2016-04-27 12:22 | Hospitalist Progress Note ---
Hospitalist Progress Note Date of Service Apr 27, 2016. Subjective Pt evaluation today including: conversation w/ patient, physical exam, lab review, review of studies, review of inpatient medication list Pain: denies Voiding: no voiding problems No new issues overnight. Medications Current Inpatient Medications Medications (Trade) Dose Ordered Sig/Humphrey Route Start Time Stop Time Status Last Admin Dose Admin Acetaminophen (Tylenol Tab) 650 mg Q4H PRN PO 04/25/16 16:30 05/25/16 16:29 Zolpidem Tartrate (Ambien Tab) 5 mg HSZ PRN PO 04/25/16 16:30 05/25/16 16:29 Aspirin (Ecotrin Tab) 81 mg BID PO 04/26/16 08:00 05/26/16 08:59 04/27/16 11:28 81 MG Atorvastatin Calcium (Lipitor Tab) 80 mg HS PO 04/25/16 21:00 05/25/16 20:59 04/26/16 21:18 80 MG Gabapentin (Neurontin Cap) 300 mg TID PO 04/25/16 20:00 05/25/16 20:59 04/27/16 11:28 300 MG Levothyroxine Sodium (Synthroid Tab) 75 mcg DAILYBB PO 04/26/16 06:30 05/26/16 06:59 04/26/16 06:10 75 MCG Methenamine Hippurate (Urex Tab) 1 gm BID PO 04/25/16 20:00 04/30/16 20:59 04/27/16 11:28 1 GM Metoprolol Succinate (Toprol Xl Tab) 25 mg HS PO 04/25/16 21:00 05/25/16 20:59 04/26/16 21:32 25 MG Multivitamins (Multivitamin Tab) 1 tab QPM PO 04/25/16 21:00 05/25/16 20:59 04/26/16 21:18 1 TAB Nitroglycerin (Nitrostat Tab) 0.4 mg Q5M PRN [place] 04/25/16 16:30 05/25/16 16:29 Paroxetine HCl (pAXil TAB) 20 mg HS PO 04/25/16 21:00 05/25/16 20:59 04/26/16 21:17 20 MG Prednisone (PredniSONE TAB) 5 mg QAM PO 04/26/16 08:00 05/26/16 08:59 04/27/16 11:28 5 MG Senna (Senokot Tab) 17.2 mg HS PO 04/25/16 21:00 05/25/16 20:59 04/26/16 21:16 17.2 MG Triamterene/HCTZ (Dyazide 37.5/25 Mg Cap) 1 cap QAM PO 04/26/16 08:00 05/26/16 08:59 04/27/16 11:28 1 CAP Valacyclovir HCl (Valtrex Tab) 500 mg QAM PO 04/26/16 08:00 05/26/16 08:59 04/27/16 11:28 500 MG Lactobacillus Acidophilus (Floranex Tab) 4 tab TIDM PO 04/25/16 21:00 05/25/16 20:59 04/27/16 11:29 4 TAB Lorazepam (Ativan Inj) 0.5 mg Q4H PRN IV 04/25/16 16:30 05/25/16 16:29 Lorazepam (Ativan Inj) 1 mg Q4H PRN IV 04/25/16 16:30 05/25/16 16:29 Magnesium Hydroxide (Milk Of Magnesia Susp) 30 ml Q6H PRN PO 04/25/16 16:30 05/25/16 16:29 Bisacodyl (Dulcolax Supp) 10 mg DAILY PRN [place] 04/25/16 16:30 05/25/16 16:29 Diphenhydramine HCl (Benadryl Inj) 25 mg Q4H PRN IV 04/25/16 16:30 05/25/16 16:29 Al Hydrox/Mg Hydrox/ Simethicone 15 ml 15 ml Q4H PRN PO 04/25/16 16:30 05/25/16 16:29 Promethazine HCl/ Sodium Chloride (Phenergan Inj/ Nss 50ml) 50.5 ml @ 202 mls/hr Q4H PRN IV 04/25/16 16:30 05/25/16 16:29 Ondansetron HCl (Zofran Inj) 4 mg Q6H PRN IV 04/25/16 16:30 05/25/16 16:29 Docusate Sodium (coLACE CAP) 100 mg BID PO 04/25/16 20:00 05/25/16 20:59 04/27/16 11:27 100 MG Morphine Sulfate (MoRPHine SULFATE INJ) 2 mg Q2H PRN IV 04/25/16 16:30 05/09/16 16:29 Morphine Sulfate (MoRPHine SULFATE INJ) 4 mg Q2H PRN IV 04/25/16 16:30 05/09/16 16:29 Insulin Aspart (novoLOG ASPART) SLIDING SCALE If C... ACHS SC 04/25/16 21:00 05/25/16 20:59 04/26/16 17:43 6 UNITS Glucose (Glucose 40% Gel) UD PRN PO 04/25/16 16:30 05/25/16 16:29 Glucose (Glucose Chew Tab) 1 tabs UD PRN PO 04/25/16 16:30 05/25/16 16:29 Dextrose (Dextrose 50% 50ML Syringe) 50 ml UD PRN IV 04/25/16 16:30 05/25/16 16:29 Glucagon 1 mg 1 mg UD PRN SQ 04/25/16 16:30 05/25/16 16:29 Vancomycin HCl 1000 mg/Sodium Chloride 270 ml @ 125 mls/hr Q12H IV 04/26/16 04:00 05/26/16 03:59 04/27/16 03:54 125 MLS/HR Aztreonam/Dextrose (Azactam IV/D5 100ml) 110 ml @ 100 mls/hr Q8H IV 04/25/16 20:00 05/25/16 19:59 04/27/16 11:33 100 MLS/HR Metronidazole (Flagyl Tab) 250 mg QID PO 04/25/16 21:00 05/05/16 20:59 04/27/16 11:28 250 MG Vancomycin HCl (Consult) 1 ea UD PRN N/A 04/25/16 19:15 05/25/16 19:14 Triamcinolone Acetonide (Nasacort Allergy 24hr) 1 sprays HS PRISCILA 04/26/16 21:00 05/26/16 07:59 04/26/16 21:11 1 SPRAYS Objective Vital Signs Date Time Temp Pulse Resp B/P Pulse Ox O2 Delivery O2 Flow Rate FiO2 04/27/16 11:21 36.5 60 16 147/83 99 Room Air 04/27/16 08:53 Room Air 04/27/16 08:30 Room Air 04/27/16 07:56 36.5 66 14 117/75 98 Room Air 04/27/16 00:00 Room Air 04/26/16 23:08 36.5 60 18 126/76 95 Room Air 04/26/16 21:28 36.8 73 18 126/74 95 Room Air 04/26/16 21:00 Room Air 04/26/16 16:00 Room Air 04/26/16 15:41 36.6 71 15 108/68 93 Room Air Physical Exam General Appearance: no apparent distress Eyes: sclerae normal Neck: no JVD Respiratory/Chest: normal breath sounds, no respiratory distress Cardiovascular: regular rate, rhythm, no edema Abdomen: non tender, soft Extremities: no pedal edema, + pertinent finding (right foot dressing clean and dry) Neurologic/Psychiatric: alert, oriented x 3 Skin: warm/dry Laboratory Results Last 24 Hours Test 04/26/16 16:35 04/26/16 16:54 04/26/16 20:33 04/27/16 03:54 Bedside Glucose 117 mg/dl 122 mg/dl Erythrocyte Sedimentation Rate 21 mm/hr C-Reactive Protein 1.27 mg/dl Prothrombin Time 10.7 SECONDS Prothromb Time International Ratio 1.0 Activated Partial Thromboplast Time 20.1 SECONDS Partial Thromboplastin Ratio 0.8 Sodium Level 143 mmol/L Potassium Level 3.5 mmol/L Chloride Level 107 mmol/L Carbon Dioxide Level 26 mmol/L Anion Gap 10.0 mmol/L Blood Urea Nitrogen 17 mg/dl Creatinine 0.85 mg/dl Est Creatinine Clear Calc Drug Dose 61.2 ml/min Estimated GFR () 79.9 Estimated GFR (Non- 68.9 BUN/Creatinine Ratio 20.5 Random Glucose 111 mg/dl Calcium Level 8.6 mg/dl Magnesium Level 2.0 mg/dl Total Bilirubin 0.5 mg/dl Direct Bilirubin 0.1 mg/dl Aspartate Amino Transf (AST/SGOT) 25 U/L Alanine Aminotransferase (ALT/SGPT) 36 U/L Alkaline Phosphatase 120 U/L Total Protein 6.8 gm/dl Albumin 2.9 gm/dl Vancomycin Level Trough 13.9 mcg/ml Test 04/27/16 07:00 04/27/16 07:43 04/27/16 11:08 White Blood Count 7.56 K/uL Red Blood Count 4.03 M/uL Hemoglobin 12.5 g/dL Hematocrit 38.0 % Mean Corpuscular Volume 94.3 fL Mean Corpuscular Hemoglobin 31.0 pg Mean Corpuscular Hemoglobin Concent 32.9 g/dl Platelet Count 332 K/uL Mean Platelet Volume 9.5 fL Neutrophils (%) (Auto) 46.6 % Lymphocytes (%) (Auto) 41.1 % Monocytes (%) (Auto) 8.2 % Eosinophils (%) (Auto) 3.0 % Basophils (%) (Auto) 0.7 % Neutrophils # (Auto) 3.52 K/uL Lymphocytes # (Auto) 3.11 K/uL Monocytes # (Auto) 0.62 K/uL Eosinophils # (Auto) 0.23 K/uL Basophils # (Auto) 0.05 K/uL RDW Standard Deviation 48.1 fL RDW Coefficient of Variation 13.9 % Immature Granulocyte % (Auto) 0.4 % Immature Granulocyte # (Auto) 0.03 K/uL Bedside Glucose 113 mg/dl 97 mg/dl Diagnostic Results BONE SCAN 3 PHASE LIMITED HISTORY: RIGHT FOOT swelling, PLEASE COMPARE TO X-RAY TECHNIQUE: Immediately and 3 hours following the intravenous administration of 26.3 mCi of technetium 99 M MDP, 3 phase bone scan of the feet were performed. COMPARISON STUDY: Right foot radiograph 04/25/2016. FINDINGS: There is positive three-phase uptake within the right midfoot. No abnormal radiotracer uptake seen within the left foot. IMPRESSION: Positive three-phase uptake within the right foot. However, this is nonspecific and could be due to the recent postoperative change or underlying infectious process. In addition, evaluation of the mid foot with a CT or MRI would also be of limited value given the extensive metallic hardware. Assessment and Plan (1) Diabetic foot infection Assessment & Plan: Wound culture grew MSSA. Await input from Ortho after they debride her wound. 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 Otherwise, continue current abx. Will see what culture shows at time of debridement. Continue with dressing changes per Wound Care nurse. (2) Charcot's arthropathy Assessment & Plan: S/p reconstruction in 02/2016 (3) DM2 (diabetes mellitus, type 2) Assessment & Plan: Optimally controlled with present sliding scale coverage. Will continue. (4) Diabetic neuropathy associated with type 2 diabetes mellitus Assessment & Plan: Continue gabapentin. She tells me that she feels it has been worsening recently, reaching higher up her legs and she also experiences paresthesia in her fingers on both hands. She reports being diagnosed with neuropathy years before being diagnosed with diabetes and her HbA1C has been < 7. It would be unusual for her to have such severe neuropathy related to relatively mild diabetes. B12 was checked in 03/10 and was normal. Will send folate and copper levels with next set of labs. (5) CAD (coronary artery disease) Assessment & Plan: Stable. No evidence of ischemia at this time. Continue ASA , statin, and beta inocente. (6) Hypothyroidism Assessment & Plan: Continue Synthroid. (7) HTN (hypertension) Assessment & Plan: Controlled with triamterene/HCTZ and beta inocente. Will continue. (8) Dyslipidemia Assessment & Plan: Continue statin. (9) Fibromyalgia Assessment & Plan: Continue Paxil and gabapentin. (10) Psoriatic arthritis Assessment & Plan: On chronic Prednisone, which is continued. (11) DVT prophylaxis Assessment & Plan: SCDs Continued [facility] stay due to: multiple IV medications needed Discharge planning: home with home health
[2016-04-27] MEDS: DAPTOMYCIN IV 500 MG in NSS 50ML IV SCH (13:32)
[2016-04-27 15:55] VITALS: BP 120/73; PULSE 67; TEMP 36.6; O2SAT 93
--- NOTE | 2016-04-27 19:09 | Progress Note ---
Progress Note The patient is a 70 year old scheduled for an I&D of her right foot. 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 She has psoriatic arthritis and and takes prednisone 5 mg per day. She was seen one month ago by Dr. Miller who felt that her angina was stable and not progressive. At that time she underwent an uneventful general anesthetic for surgery on her right foot with an LMA and a popliteal block. Her labs are normal and her EKG is normal sinus rhythm with non-specific T wave abnormality of the anterior leads. Her airway is a Mallampatti 3. I consented her for a general, regional or MAC anesthesia and feel she would be a good candidate for an ankle block.
[2016-04-27] MEDS: TRIAMCINOLONE ACET NASAL SPRAY 10.8ML BTL NAE SCH (20:38)
[2016-04-27] MEDS: ATORVASTATIN 40 MG TAB PO SCH (20:38)
[2016-04-27] MEDS: SENNA 8.6 MG TAB PO SCH (20:39)
[2016-04-27] MEDS: MULTIVITAMIN TAB PO SCH (20:39)
[2016-04-27] MEDS: PAROXETINE 20 MG TAB PO SCH (20:40)
[2016-04-27] MEDS: METOPROLOL SUCC 25MG EXT REL TAB PO SCH (20:41)
[2016-04-28] VITALS (7 sets, daily range): BP systolic 114–145; BP diastolic 68–77; PULSE 69–97; TEMP 36.4–36.8; O2SAT 93–97
[2016-04-28] MEDS: AZTREONAM IV 2,000 MG in DEXTROSE 5% 100ML 100 ML IV SCH ×3 (04:27→20:37)
[2016-04-28] MEDS: LEVOTHYROXINE 75 MCG TAB PO SCH (05:29)
[2016-04-28 06:45] LABS: BASO % 0.7 %; BASO ABS # 0.05 K/uL (0-0.2); COMPLETE YES; EOS % 2.7 %; HEMATOCRIT 37.8 % (37-47); IG% 0.3 %; LYMPH % 32.4 %; LYMPH ABS # 2.31 K/uL (1.2-3.4); MEAN CELL VOLUME 95.5 fL (80-100); MEAN CORPUSCULAR HEMOGLOBIN 30.8 pg (25-34); MEAN CORPUSCULAR HGB CONC 32.3 g/dl (32-36); MEAN PLATELET VOLUME 9.2 fL (7.4-10.4); NEUT % 53.9 %; PLATELET COUNT 320 K/uL (130-400); RED BLOOD COUNT 3.96 M/uL (4.2-5.4); WHITE BLOOD COUNT 7.13 K/uL (4.8-10.8)
[2016-04-28 07:02] LABS: INR 1.1 (0.9-1.1); PROTHROMBIN TIME (PATIENT) 11.4 SECONDS (9.0-12.0)
[2016-04-28 07:18] LABS: BUN/CREATININE RATIO 19.9 (10-20); CREATININE 0.84 mg/dl (0.60-1.20); POTASSIUM 3.5 mmol/L (3.5-5.1)
[2016-04-28] MEDS: INSULIN ASPART 100 UNITS/ML 3 ML PEN SC SCH ×4 (09:14→20:53)
[2016-04-28] MEDS: METRONIDAZOLE 250 MG TAB PO SCH ×4 (09:15→20:44)
[2016-04-28] MEDS: TRIAMTERENE/HCTZ 37.5/25MG CAP PO SCH (09:15)
[2016-04-28] MEDS: DOCUSATE SODIUM 100 MG CAP PO SCH ×2 (09:15→20:42)
[2016-04-28] MEDS: GABAPENTIN 300 MG CAP PO SCH ×3 (09:15→20:43)
[2016-04-28] MEDS: LACTOBACILLUS ACIDOPHILUS (FLORANEX) TAB PO SCH ×3 (09:15→17:36)
[2016-04-28] MEDS: ASPIRIN 81 MG ECTAB PO SCH ×2 (09:16→20:43)
[2016-04-28] MEDS: METHENAMINE HIPPURATE 1 GM TAB PO SCH ×2 (09:16→20:45)
--- NOTE | 2016-04-28 12:56 | Hospitalist Progress Note ---
Hospitalist Progress Note Date of Service Apr 28, 2016. Subjective Pt evaluation today including: conversation w/ patient, conversation w/ family , physical exam, chart review, lab review, review of inpatient medication list Denies any complaint or new issue. She's planned for I&D in the OR this afternoon. Medications Current Inpatient Medications Medications (Trade) Dose Ordered Sig/Humphrey Route Start Time Stop Time Status Last Admin Dose Admin Acetaminophen (Tylenol Tab) 650 mg Q4H PRN PO 04/25/16 16:30 05/25/16 16:29 Zolpidem Tartrate (Ambien Tab) 5 mg HSZ PRN PO 04/25/16 16:30 05/25/16 16:29 Aspirin (Ecotrin Tab) 81 mg BID PO 04/26/16 08:00 05/26/16 08:59 04/27/16 20:36 81 MG Atorvastatin Calcium (Lipitor Tab) 80 mg HS PO 04/25/16 21:00 05/25/16 20:59 04/27/16 20:38 80 MG Gabapentin (Neurontin Cap) 300 mg TID PO 04/25/16 20:00 05/25/16 20:59 04/27/16 20:37 300 MG Levothyroxine Sodium (Synthroid Tab) 75 mcg DAILYBB PO 04/26/16 06:30 05/26/16 06:59 04/26/16 06:10 75 MCG Methenamine Hippurate (Urex Tab) 1 gm BID PO 04/25/16 20:00 04/30/16 20:59 04/27/16 20:37 1 GM Metoprolol Succinate (Toprol Xl Tab) 25 mg HS PO 04/25/16 21:00 05/25/16 20:59 04/27/16 20:41 25 MG Multivitamins (Multivitamin Tab) 1 tab QPM PO 04/25/16 21:00 05/25/16 20:59 04/27/16 20:39 1 TAB Nitroglycerin (Nitrostat Tab) 0.4 mg Q5M PRN UT 04/25/16 16:30 05/25/16 16:29 Paroxetine HCl (pAXil TAB) 20 mg HS PO 04/25/16 21:00 05/25/16 20:59 04/27/16 20:40 20 MG Prednisone (PredniSONE TAB) 5 mg QAM PO 04/26/16 08:00 05/26/16 08:59 04/27/16 11:28 5 MG Senna (Senokot Tab) 17.2 mg HS PO 04/25/16 21:00 05/25/16 20:59 04/27/16 20:39 17.2 MG Triamterene/HCTZ (Dyazide 37.5/25 Mg Cap) 1 cap QAM PO 04/26/16 08:00 05/26/16 08:59 04/27/16 11:28 1 CAP Valacyclovir HCl (Valtrex Tab) 500 mg QAM PO 04/26/16 08:00 05/26/16 08:59 04/27/16 11:28 500 MG Lactobacillus Acidophilus (Floranex Tab) 4 tab TIDM PO 04/25/16 21:00 05/25/16 20:59 04/27/16 17:10 4 TAB Lorazepam (Ativan Inj) 0.5 mg Q4H PRN IV 04/25/16 16:30 05/25/16 16:29 Lorazepam (Ativan Inj) 1 mg Q4H PRN IV 04/25/16 16:30 05/25/16 16:29 Magnesium Hydroxide (Milk Of Magnesia Susp) 30 ml Q6H PRN PO 04/25/16 16:30 05/25/16 16:29 Bisacodyl (Dulcolax Supp) 10 mg DAILY PRN DE 04/25/16 16:30 05/25/16 16:29 Diphenhydramine HCl (Benadryl Inj) 25 mg Q4H PRN IV 04/25/16 16:30 05/25/16 16:29 Al Hydrox/Mg Hydrox/ Simethicone 15 ml 15 ml Q4H PRN PO 04/25/16 16:30 05/25/16 16:29 Promethazine HCl/ Sodium Chloride (Phenergan Inj/ Nss 50ml) 50.5 ml @ 202 mls/hr Q4H PRN IV 04/25/16 16:30 05/25/16 16:29 Ondansetron HCl (Zofran Inj) 4 mg Q6H PRN IV 04/25/16 16:30 05/25/16 16:29 Docusate Sodium (coLACE CAP) 100 mg BID PO 04/25/16 20:00 3/2/17 20:59 04/27/16 20:35 100 MG Morphine Sulfate (MoRPHine SULFATE INJ) 2 mg Q2H PRN IV 04/25/16 16:30 05/09/16 16:29 Morphine Sulfate (MoRPHine SULFATE INJ) 4 mg Q2H PRN IV 04/25/16 16:30 05/09/16 16:29 Insulin Aspart (novoLOG ASPART) SLIDING SCALE If C... ACHS SC 04/25/16 21:00 05/25/16 20:59 04/27/16 20:43 1 UNITS Glucose (Glucose 40% Gel) UD PRN PO 04/25/16 16:30 05/25/16 16:29 Glucose (Glucose Chew Tab) 1 tabs UD PRN PO 04/25/16 16:30 05/25/16 16:29 Dextrose (Dextrose 50% 50ML Syringe) 50 ml UD PRN IV 04/25/16 16:30 05/25/16 16:29 Glucagon 1 mg 1 mg UD PRN SQ 04/25/16 16:30 05/25/16 16:29 Aztreonam/Dextrose (Azactam IV/D5 100ml) 110 ml @ 100 mls/hr Q8H IV 04/25/16 20:00 05/25/16 19:59 04/28/16 11:38 100 MLS/HR Metronidazole (Flagyl Tab) 250 mg QID PO 04/25/16 21:00 05/05/16 20:59 04/27/16 20:36 250 MG Triamcinolone Acetonide 1 sprays 1 sprays HS PRISCILA 04/26/16 21:00 05/26/16 07:59 04/27/16 20:38 1 SPRAYS Daptomycin/Sodium Chloride (Cubicin IV/Nss 50ml) 60 ml @ 120 mls/hr Q24H IV 04/27/16 14:00 05/26/16 03:59 04/27/16 13:32 120 MLS/HR Objective Vital Signs Date Time Temp Pulse Resp B/P Pulse Ox O2 Delivery O2 Flow Rate FiO2 04/28/16 08:12 36.8 69 20 133/73 96 Room Air 04/28/16 08:00 Room Air 04/28/16 00:41 36.8 71 20 128/77 97 Room Air 04/28/16 00:00 Room Air 04/27/16 16:00 Room Air 04/27/16 15:55 36.6 67 16 120/73 93 Room Air Physical Exam General Appearance: no apparent distress Eyes: sclerae normal Neck: no JVD Respiratory/Chest: normal breath sounds, no respiratory distress Cardiovascular: regular rate, rhythm Abdomen: non tender, soft Extremities: no pedal edema, + pertinent finding (right foot dressing is clean and dry) Neurologic/Psychiatric: alert, oriented x 3 Skin: warm/dry Laboratory Results Last 24 Hours Test 04/27/16 16:31 04/27/16 19:49 04/28/16 06:30 04/28/16 07:55 Bedside Glucose 119 mg/dl 178 mg/dl 110 mg/dl White Blood Count 7.13 K/uL Red Blood Count 3.96 M/uL Hemoglobin 12.2 g/dL Hematocrit 37.8 % Mean Corpuscular Volume 95.5 fL Mean Corpuscular Hemoglobin 30.8 pg Mean Corpuscular Hemoglobin Concent 32.3 g/dl Platelet Count 320 K/uL Mean Platelet Volume 9.2 fL Neutrophils (%) (Auto) 53.9 % Lymphocytes (%) (Auto) 32.4 % Monocytes (%) (Auto) 10.0 % Eosinophils (%) (Auto) 2.7 % Basophils (%) (Auto) 0.7 % Neutrophils # (Auto) 3.85 K/uL Lymphocytes # (Auto) 2.31 K/uL Monocytes # (Auto) 0.71 K/uL Eosinophils # (Auto) 0.19 K/uL Basophils # (Auto) 0.05 K/uL RDW Standard Deviation 48.5 fL RDW Coefficient of Variation 14.0 % Immature Granulocyte % (Auto) 0.3 % Immature Granulocyte # (Auto) 0.02 K/uL Prothrombin Time 11.4 SECONDS Prothromb Time International Ratio 1.1 Activated Partial Thromboplast Time 25.1 SECONDS Partial Thromboplastin Ratio 1.0 Sodium Level 143 mmol/L Potassium Level 3.5 mmol/L Chloride Level 106 mmol/L Carbon Dioxide Level 25 mmol/L Anion Gap 12.0 mmol/L Blood Urea Nitrogen 17 mg/dl Creatinine 0.84 mg/dl Est Creatinine Clear Calc Drug Dose 61.9 ml/min Estimated GFR () 81.0 Estimated GFR (Non- 69.9 BUN/Creatinine Ratio 19.9 Random Glucose 114 mg/dl Calcium Level 9.0 mg/dl Magnesium Level 2.0 mg/dl Total Bilirubin 0.8 mg/dl Direct Bilirubin 0.1 mg/dl Aspartate Amino Transf (AST/SGOT) 45 U/L Alanine Aminotransferase (ALT/SGPT) 54 U/L Alkaline Phosphatase 118 U/L Total Creatine Kinase 47 U/L Total Protein 7.1 gm/dl Albumin 3.0 gm/dl Assessment and Plan (1) Diabetic foot infection Assessment & Plan: Wound culture grew MSSA. Await input from Ortho after they debride her wound. If they feel there is any indication of osteo or hardware involvement, will consult ID for emt intermediate abx. Otherwise, continue current abx. Will see what culture shows at time of debridement. Continue with dressing changes per Wound Care nurse. (2) Charcot's arthropathy Assessment & Plan: S/p reconstruction in 02/2016 (3) DM2 (diabetes mellitus, type 2) Assessment & Plan: Optimally controlled with present sliding scale coverage. Will continue. (4) Diabetic neuropathy associated with type 2 diabetes mellitus Assessment & Plan: Continue gabapentin. She tells me that she feels it has been worsening recently, reaching higher up her legs and she also experiences paresthesia in her fingers on both hands. She reports being diagnosed with neuropathy years before being diagnosed with diabetes and her HbA1C has been < 7. It would be unusual for her to have such severe neuropathy related to relatively mild diabetes. B12 was checked in 03/10 and was normal. Will send folate and copper levels with next set of labs. (5) CAD (coronary artery disease) Assessment & Plan: Stable. No evidence of ischemia at this time. Continue ASA , statin, and beta inocente. (6) Hypothyroidism Assessment & Plan: Continue Synthroid. (7) HTN (hypertension) Assessment & Plan: Controlled with triamterene/HCTZ and beta inocente. Will continue. (8) Dyslipidemia Assessment & Plan: Continue statin. (9) Fibromyalgia Assessment & Plan: Continue Paxil and gabapentin. (10) Psoriatic arthritis Assessment & Plan: On chronic Prednisone, which is continued. (11) DVT prophylaxis Assessment & Plan: SCDs Continued [facility] stay due to: multiple IV medications needed Discharge planning: home with home health (may also need IV antibiotics)
--- NOTE | 2016-04-28 13:28 | History & Physical Bridge Note ---
H&P Re-Evaluation Bridge Note: I have examined the patient, reviewed the History & Physical and in the interval since the performance of the History & Physical I have noted the following changes of clinical significance: No changes noted
[2016-04-28] MEDS ORDERED: FENTANYL CITRATE INJ 50 MCG/1 ML 2 ML VIAL IV PRN (13:30)
[2016-04-28] MEDS ORDERED: EpHEDrine SULFATE INJ 50 MG/ML AMP IV PRN (13:30)
[2016-04-28] MEDS ORDERED: ONDANSETRON INJ 2 MG/ML 2 ML VIAL IV PRN (13:30)
[2016-04-28] MEDS ORDERED: ATROPINE SULFATE 0.1 MG/ML 5ML SYR IV PRN (13:30)
[2016-04-28] MEDS: DAPTOMYCIN IV 500 MG in NSS 50ML IV SCH (13:37)
[2016-04-28] MEDS ORDERED: BACITRACIN 50000 UNIT VIAL IR ONE (15:09)
--- NOTE | 2016-04-28 15:46 | [facility] Post Operative Brief Note ---
Immediate Operative Summary Operative Date Apr 28, 2016. Pre-Operative Diagnosis Right Foot Wound Infection with dehiscence medial and lateral incisions; Retained Hardware foot Post-Operative Diagnosis Right Foot Wound Infection with dehiscence medial and lateral incisions; Retained Hardware foot Procedure(s) Performed Right Foot Incision and Drainage lateral foot; Irrigation and Debridement of skin and Fascia of the Medial and Lateral Incisions Surgeon Dr. Goran Nash Director Speech Language Surgeon(s) None Estimated Blood Loss 5ml Findings See Dict Specimens Microbiology #1. Wound Dihiscence Right Foot, Gram Stain, Culture and Sensitivity, Aerobic/Anerobic, out at 1445 Drains HV x 1 lateral; 1/2" iodoform gauze medial and lateral Anesthesia GLMA Complication(s) None Disposition Recovery Room / PACU
--- NOTE | 2016-04-28 16:08 | Anesthesiology Progress Note ---
Anesthesia Post Op Note Date & Time Apr 28, 2016 at 16:07 Vital Signs Pain Intensity: 0 Vital Signs Past 12 Hours Date Time Temp Pulse Resp B/P Pulse Ox O2 Delivery O2 Flow Rate FiO2 04/28/16 15:56 77 16 04/28/16 15:56 77 16 97 04/28/16 15:53 154/72 04/28/16 15:51 75 16 99 04/28/16 15:51 75 16 04/28/16 15:48 140/95 04/28/16 15:46 76 14 04/28/16 15:46 77 14 100 04/28/16 15:43 145/79 04/28/16 15:41 73 13 100 04/28/16 15:41 73 13 04/28/16 15:38 169/86 04/28/16 15:36 75 13 100 04/28/16 15:36 75 13 04/28/16 15:33 174/86 04/28/16 15:31 73 16 04/28/16 15:31 73 16 100 04/28/16 15:28 169/85 04/28/16 15:26 77 16 04/28/16 15:26 36.6 81 8 174/87 100 Mask 10 04/28/16 15:26 77 16 100 04/28/16 08:12 36.8 69 20 133/73 96 Room Air 04/28/16 08:00 Room Air Notes Mental Status: alert / awake / arousable, participated in evaluation Pt Amnestic to Procedure: Yes Nausea / Vomiting: adequately controlled Pain: adequately controlled Airway Patency, RR, SpO2: stable & adequate BP & HR: stable & adequate Hydration State: stable & adequate Anesthetic Complications: no major complications apparent
--- NOTE | 2016-04-28 17:04 | OPERATIVE REPORT ---
DATE OF OPERATION: 04/28/2016 PREOPERATIVE DIAGNOSES: 1. Right foot wound dehiscence medial incision and dehiscence lateral incisions. 2. Retained hardware. POSTOPERATIVE DIAGNOSIS: Same. PROCEDURES: 1. Right foot incision and drainage lateral foot. 2. Irrigation and debridement of skin and fascia both in the medial and lateral incision of the right foot. SURGEON: Dr. Nash. KETTLE FIRER: None. ANESTHESIA: General LMA. SPECIMENS: Aerobic, anaerobic and Gram stain from the lateral wound dehiscence down to the level of the bone and hardware. DRAINS: Hemovac x1 exiting dorsolaterally and iodoform gauze drains both medial and lateral. COMPLICATIONS: None. BLOOD LOSS: 5 mL. PERTINENT HISTORY: This is a 70-year-old female with history of previous foot reconstruction with plates and screws. The patient was doing well; however, developed redness and swelling, particularly on the lateral aspect of the foot with eschar formation. She was admitted to the hospital and was placed on IV antibiotics. Antibiotics were helpful; however, continued to have a slight drainage in the lateral aspect of the foot with the concern of hardware present. The patient was then scheduled for operative intervention. All potential risks, benefits, complications, alternatives, rehab, potential for incomplete relief of symptoms, need for further surgery, DVT, PE, , persistent pain, swelling, scarring, weakness, neurovascular injury, wound complications, need for further surgery, need for possible removal of hardware, bone fracture or other pristine complications were discussed with the patient. The patient decided to proceed with the procedure as indicated. DESCRIPTION OF PROCEDURE: The patient was taken to the operating suite and placed supine on the operating room table. After reviewing consent and identification of proper operative site, the patient was anesthetized, LMA was placed. Tourniquet was placed high on the right thigh over cast padding. Right lower extremity was then sterilely prepped and draped in usual fashion, elevated and tourniquet inflated to 300 mmHg. The limb was not exsanguinated due to the possible presence of infection. Next, the 15-blade scalpel was used to debride the lateral incision eschar and then after this was completed, wound edges were freshened with a 15-blade scalpel to bleeding tissue and then the deep culture was then obtained from the lateral aspect of the foot down to the level of the plate. Next, the curette was then used to curette the soft tissues and the wound dehiscence laterally. This was performed down to the level of skin and fascia. Next, the attention was then directed toward the medial aspect of the foot and the areas of superficial tissue necrosis were then carefully debrided with a forceps and 15-blade scalpel and then a subsequent debridement was performed with a small bone curette. Next, both the medial and lateral incisions were then irrigated copiously with pulsatile lavage with bacitracin additive 3 liters per side, 6 liters total, followed by implantation of a 10-Filipino single lumen Hemovac drain exiting dorsolateral aspect of the foot and packing with half inch iodoform gauze, packing into the lateral side of wound dehiscence and the more superficial dehiscence on the medial side was then also packed gently with half inch iodoform gauze. Next, the lateral incisions both proximal and distal was then closed using interrupted 3-0 nylon sutures and a sterile compressive dressing consisting of Xeroform gauze, sterile 4x4's, cast padding and an [place]osta wrap was applied to the right foot. The tourniquet was released. The drain was placed to Hemovac suction and the tourniquet was released. The patient was awakened and taken to recovery in stable condition. I attest to the content of the Intraoperative Record and any orders documented therein. Any exceptio ns are noted below.
[2016-04-28] MEDS: ATORVASTATIN 40 MG TAB PO SCH (20:42)
[2016-04-28] MEDS: SENNA 8.6 MG TAB PO SCH (20:46)
[2016-04-28] MEDS: PAROXETINE 20 MG TAB PO SCH (20:47)
[2016-04-28] MEDS: MULTIVITAMIN TAB PO SCH (20:47)
[2016-04-28] MEDS: TRIAMCINOLONE ACET NASAL SPRAY 10.8ML BTL NAE SCH (20:49)
[2016-04-28] MEDS: METOPROLOL SUCC 25MG EXT REL TAB PO SCH (21:42)
[2016-04-29 00:06] VITALS: BP 124/74; PULSE 85; TEMP 36.9
[2016-04-29] MEDS: TRAMADOL HCL 50 MG TAB PO PRN (00:27)
[2016-04-29] MEDS: AZTREONAM IV 2,000 MG in DEXTROSE 5% 100ML 100 ML IV SCH ×2 (04:33→12:26)
[2016-04-29] MEDS: LEVOTHYROXINE 75 MCG TAB PO SCH (06:29)
[2016-04-29 07:09] VITALS: BP 124/75; PULSE 64; TEMP 36.6; O2SAT 96
[2016-04-29 07:11] LABS: BASO % 0.5 %; BASO ABS # 0.04 K/uL (0-0.2); COMPLETE YES; EOS % 2.3 %; HEMATOCRIT 37.5 % (37-47); IG% 0.3 %; LYMPH % 27.3 %; LYMPH ABS # 2.04 K/uL (1.2-3.4); MEAN CELL VOLUME 95.7 fL (80-100); MEAN CORPUSCULAR HEMOGLOBIN 30.9 pg (25-34); MEAN CORPUSCULAR HGB CONC 32.3 g/dl (32-36); MEAN PLATELET VOLUME 9.4 fL (7.4-10.4); NEUT % 59.6 %; PLATELET COUNT 316 K/uL (130-400); RED BLOOD COUNT 3.92 M/uL (4.2-5.4); WHITE BLOOD COUNT 7.47 K/uL (4.8-10.8)
[2016-04-29 07:36] LABS: BUN/CREATININE RATIO 19.2 (10-20); CALCIUM 8.8 mg/dl (8.5-10.1); CREATININE 0.79 mg/dl (0.60-1.20); MAGNESIUM 1.9 mg/dl (1.8-2.4); POTASSIUM 3.5 mmol/L (3.5-5.1)
[2016-04-29] MEDS: METHENAMINE HIPPURATE 1 GM TAB PO SCH ×2 (07:45→20:16)
[2016-04-29] MEDS: GABAPENTIN 300 MG CAP PO SCH ×3 (07:46→20:19)
[2016-04-29] MEDS: METRONIDAZOLE 250 MG TAB PO SCH ×4 (07:46→20:18)
[2016-04-29] MEDS: ASPIRIN 81 MG ECTAB PO SCH ×2 (07:46→20:20)
[2016-04-29] MEDS: LACTOBACILLUS ACIDOPHILUS (FLORANEX) TAB PO SCH ×3 (07:46→17:55)
[2016-04-29] MEDS: DOCUSATE SODIUM 100 MG CAP PO SCH ×2 (07:46→20:19)
[2016-04-29] MEDS: TRIAMTERENE/HCTZ 37.5/25MG CAP PO SCH (07:46)
[2016-04-29] MEDS: INSULIN ASPART 100 UNITS/ML 3 ML PEN SC SCH ×4 (09:25→20:59)
--- NOTE | 2016-04-29 10:48 | Orthopedic Progress Note ---
Orthopedic Progress Note Date of Service Apr 29, 2016. Subjective Reports: feeling well, pain controlled w PO medications, Denies: SOB, calf pain , chest pain, complaints, light headedness, nausea / vomiting Additional Notes: No F/C. Objective calves soft nontender, N/V intact, capillary refill less than 2 sec., dressing C /D/I, A&O x3, toes mobile, hemovac drainage Scant hemovac D/C. Date Time Temp Pulse Resp B/P Pulse Ox O2 Delivery O2 Flow Rate FiO2 04/29/16 09:41 Room Air 04/29/16 07:09 36.6 64 20 124/75 96 Room Air 04/29/16 00:06 36.9 85 18 124/74 Room Air 04/28/16 23:59 Room Air 04/28/16 20:21 36.8 84 16 118/69 93 Room Air 04/28/16 20:00 Room Air 04/28/16 18:57 36.8 83 16 114/68 97 Room Air 04/28/16 17:29 36.4 77 16 134/69 95 Room Air 04/28/16 17:00 36.5 75 16 135/74 95 Room Air 74 04/28/16 16:37 36.5 75 18 145/76 97 Room Air 97 04/28/16 16:21 Room Air 04/28/16 16:18 154/72 04/28/16 16:17 75 16 93 04/28/16 16:17 75 16 04/28/16 16:13 155/76 04/28/16 16:12 73 16 04/28/16 16:12 72 16 96 04/28/16 16:08 163/69 04/28/16 16:07 76 13 04/28/16 16:07 75 13 96 04/28/16 16:03 143/74 04/28/16 16:02 75 12 04/28/16 16:02 73 12 96 04/28/16 15:58 152/76 04/28/16 15:57 74 15 04/28/16 15:57 73 15 94 04/28/16 15:56 77 16 04/28/16 15:56 77 16 97 04/28/16 15:53 154/72 04/28/16 15:51 75 16 99 04/28/16 15:51 75 16 04/28/16 15:48 140/95 04/28/16 15:46 76 14 04/28/16 15:46 77 14 100 04/28/16 15:43 145/79 04/28/16 15:41 73 13 100 04/28/16 15:41 73 13 04/28/16 15:38 169/86 04/28/16 15:36 75 13 100 04/28/16 15:36 75 13 04/28/16 15:33 174/86 04/28/16 15:31 73 16 04/28/16 15:31 73 16 100 04/28/16 15:28 169/85 04/28/16 15:26 77 16 04/28/16 15:26 36.6 81 8 174/87 100 Mask 10 04/28/16 15:26 77 16 100 Laboratory Results 24 Hours: Test 04/29/16 06:51 White Blood Count 7.47 K/uL Red Blood Count 3.92 M/uL Hemoglobin 12.1 g/dL Hematocrit 37.5 % Mean Corpuscular Volume 95.7 fL Mean Corpuscular Hemoglobin 30.9 pg Mean Corpuscular Hemoglobin Concent 32.3 g/dl Platelet Count 316 K/uL Mean Platelet Volume 9.4 fL Neutrophils (%) (Auto) 59.6 % Lymphocytes (%) (Auto) 27.3 % Monocytes (%) (Auto) 10.0 % Eosinophils (%) (Auto) 2.3 % Basophils (%) (Auto) 0.5 % Neutrophils # (Auto) 4.45 K/uL Lymphocytes # (Auto) 2.04 K/uL Monocytes # (Auto) 0.75 K/uL Eosinophils # (Auto) 0.17 K/uL Basophils # (Auto) 0.04 K/uL Assessment & Plan Assessment: Right foot wound dehiscence S/P I and D POD #1 Cellulitis-improved w/ IV anbx and I and D Plan: XOCHITL HENSON NPO after MN for repeat possible I and D tomorrow (1) Diabetic foot infection Acute (2) Charcot's arthropathy Resolved (3) DM2 (diabetes mellitus, type 2) Chronic (4) Diabetic neuropathy associated with type 2 diabetes mellitus Chronic (5) CAD (coronary artery disease) Chronic (6) Hypothyroidism Chronic (7) HTN (hypertension) Chronic (8) Dyslipidemia Chronic (9) Fibromyalgia Chronic (10) Psoriatic arthritis Chronic (11) DVT prophylaxis
--- NOTE | 2016-04-29 13:20 | Hospitalist Progress Note ---
Hospitalist Progress Note Date of Service Apr 29, 2016. Subjective Pt evaluation today including: conversation w/ patient, physical exam, chart review, lab review, review of studies, review of inpatient medication list Pain: well controlled Denies any new issues or complaints. Says she's going back to the OR tomorrow. Medications Current Inpatient Medications Medications (Trade) Dose Ordered Sig/Humphrey Route Start Time Stop Time Status Last Admin Dose Admin Acetaminophen (Tylenol Tab) 650 mg Q4H PRN PO 04/25/16 16:30 05/25/16 16:29 Zolpidem Tartrate (Ambien Tab) 5 mg HSZ PRN PO 04/25/16 16:30 05/25/16 16:29 Aspirin (Ecotrin Tab) 81 mg BID PO 04/26/16 08:00 05/26/16 08:59 04/29/16 07:46 81 MG Atorvastatin Calcium (Lipitor Tab) 80 mg HS PO 04/25/16 21:00 05/25/16 20:59 04/28/16 20:42 80 MG Gabapentin (Neurontin Cap) 300 mg TID PO 04/25/16 20:00 05/25/16 20:59 04/29/16 12:26 300 MG Levothyroxine Sodium (Synthroid Tab) 75 mcg DAILYBB PO 04/26/16 06:30 05/26/16 06:59 04/29/16 06:29 75 MCG Methenamine Hippurate (Urex Tab) 1 gm BID PO 04/25/16 20:00 04/30/16 20:59 04/29/16 07:45 1 GM Metoprolol Succinate (Toprol Xl Tab) 25 mg HS PO 04/25/16 21:00 05/25/16 20:59 04/28/16 21:42 25 MG Multivitamins (Multivitamin Tab) 1 tab QPM PO 04/25/16 21:00 05/25/16 20:59 04/28/16 20:47 1 TAB Nitroglycerin (Nitrostat Tab) 0.4 mg Q5M PRN UT 04/25/16 16:30 05/25/16 16:29 Paroxetine HCl (pAXil TAB) 20 mg HS PO 04/25/16 21:00 05/25/16 20:59 04/28/16 20:47 20 MG Prednisone (PredniSONE TAB) 5 mg QAM PO 04/26/16 08:00 05/26/16 08:59 04/29/16 07:45 5 MG Senna (Senokot Tab) 17.2 mg HS PO 04/25/16 21:00 05/25/16 20:59 04/28/16 20:46 17.2 MG Triamterene/HCTZ (Dyazide 37.5/25 Mg Cap) 1 cap QAM PO 04/26/16 08:00 05/26/16 08:59 04/29/16 07:46 1 CAP Valacyclovir HCl (Valtrex Tab) 500 mg QAM PO 04/26/16 08:00 05/26/16 08:59 04/29/16 07:45 500 MG Lactobacillus Acidophilus (Floranex Tab) 4 tab TIDM PO 04/25/16 21:00 05/25/16 20:59 04/29/16 12:26 4 TAB Lorazepam (Ativan Inj) 0.5 mg Q4H PRN IV 04/25/16 16:30 05/25/16 16:29 Lorazepam (Ativan Inj) 1 mg Q4H PRN IV 04/25/16 16:30 05/25/16 16:29 Magnesium Hydroxide (Milk Of Magnesia Susp) 30 ml Q6H PRN PO 04/25/16 16:30 05/25/16 16:29 Bisacodyl (Dulcolax Supp) 10 mg DAILY PRN GA 04/25/16 16:30 05/25/16 16:29 Diphenhydramine HCl (Benadryl Inj) 25 mg Q4H PRN IV 04/25/16 16:30 05/25/16 16:29 Al Hydrox/Mg Hydrox/ Simethicone 15 ml 15 ml Q4H PRN PO 04/25/16 16:30 05/25/16 16:29 Promethazine HCl/ Sodium Chloride (Phenergan Inj/ Nss 50ml) 50.5 ml @ 202 mls/hr Q4H PRN IV 04/25/16 16:30 05/25/16 16:29 Ondansetron HCl (Zofran Inj) 4 mg Q6H PRN IV 04/25/16 16:30 05/25/16 16:29 Docusate Sodium (coLACE CAP) 100 mg BID PO 04/25/16 20:00 05/25/16 20:59 04/29/16 07:46 100 MG Morphine Sulfate (MoRPHine SULFATE INJ) 2 mg Q2H PRN IV 04/25/16 16:30 05/09/16 16:29 Morphine Sulfate (MoRPHine SULFATE INJ) 4 mg Q2H PRN IV 04/25/16 16:30 05/09/16 16:29 Insulin Aspart (novoLOG ASPART) SLIDING SCALE If C... ACHS SC 04/25/16 21:00 05/25/16 20:59 04/29/16 12:31 5 UNITS Glucose (Glucose 40% Gel) UD PRN PO 04/25/16 16:30 05/25/16 16:29 Glucose (Glucose Chew Tab) 1 tabs UD PRN PO 04/25/16 16:30 05/25/16 16:29 Dextrose (Dextrose 50% 50ML Syringe) 50 ml UD PRN IV 04/25/16 16:30 05/25/16 16:29 Glucagon 1 mg 1 mg UD PRN SQ 04/25/16 16:30 05/25/16 16:29 Aztreonam/Dextrose (Azactam IV/D5 100ml) 110 ml @ 100 mls/hr Q8H IV 04/25/16 20:00 05/25/16 19:59 04/29/16 12:26 100 MLS/HR Metronidazole (Flagyl Tab) 250 mg QID PO 04/25/16 21:00 05/05/16 20:59 04/29/16 12:27 250 MG Triamcinolone Acetonide 1 sprays 1 sprays HS PRISCILA 04/26/16 21:00 05/26/16 07:59 04/28/16 20:49 1 SPRAYS Daptomycin/Sodium Chloride (Cubicin IV/Nss 50ml) 60 ml @ 120 mls/hr Q24H IV 04/27/16 14:00 05/26/16 03:59 04/28/16 13:37 120 MLS/HR Tramadol HCl (Ultram Tab) 50 mg Q4H PRN PO 04/29/16 00:00 05/29/16 00:00 04/29/16 00:27 50 MG Objective Vital Signs Date Time Temp Pulse Resp B/P Pulse Ox O2 Delivery O2 Flow Rate FiO2 04/29/16 09:41 Room Air 04/29/16 07:09 36.6 64 20 124/75 96 Room Air 04/29/16 00:06 36.9 85 18 124/74 Room Air 04/28/16 23:59 Room Air 04/28/16 20:21 36.8 84 16 118/69 93 Room Air 04/28/16 20:00 Room Air 04/28/16 18:57 36.8 83 16 114/68 97 Room Air 04/28/16 17:29 36.4 77 16 134/69 95 Room Air 04/28/16 17:00 36.5 75 16 135/74 95 Room Air 74 04/28/16 16:37 36.5 75 18 145/76 97 Room Air 97 04/28/16 16:21 Room Air 04/28/16 16:18 154/72 04/28/16 16:17 75 16 93 04/28/16 16:17 75 16 04/28/16 16:13 155/76 04/28/16 16:12 73 16 04/28/16 16:12 72 16 96 04/28/16 16:08 163/69 04/28/16 16:07 76 13 04/28/16 16:07 75 13 96 04/28/16 16:03 143/74 04/28/16 16:02 75 12 04/28/16 16:02 73 12 96 04/28/16 15:58 152/76 04/28/16 15:57 74 15 04/28/16 15:57 73 15 94 04/28/16 15:56 77 16 04/28/16 15:56 77 16 97 04/28/16 15:53 154/72 04/28/16 15:51 75 16 99 04/28/16 15:51 75 16 04/28/16 15:48 140/95 04/28/16 15:46 76 14 04/28/16 15:46 77 14 100 04/28/16 15:43 145/79 04/28/16 15:41 73 13 100 04/28/16 15:41 73 13 04/28/16 15:38 169/86 04/28/16 15:36 75 13 100 04/28/16 15:36 75 13 04/28/16 15:33 174/86 04/28/16 15:31 73 16 2/3/17 15:31 73 16 100 04/28/16 15:28 169/85 04/28/16 15:26 77 16 04/28/16 15:26 36.6 81 8 174/87 100 Mask 10 04/28/16 15:26 77 16 100 Physical Exam General Appearance: no apparent distress Eyes: sclerae normal Neck: no JVD Respiratory/Chest: lungs clear, no respiratory distress Cardiovascular: regular rate, rhythm Abdomen: normal bowel sounds, non tender, soft Extremities: no pedal edema, + pertinent finding (right foot surgically dressed with hemovac in place draining bloody fluid) Neurologic/Psychiatric: alert, oriented x 3 Skin: normal color, warm/dry Laboratory Results Last 24 Hours Test 04/28/16 16:09 04/28/16 20:19 04/29/16 06:51 04/29/16 07:36 Bedside Glucose 91 mg/dl 117 mg/dl 124 mg/dl White Blood Count 7.47 K/uL Red Blood Count 3.92 M/uL Hemoglobin 12.1 g/dL Hematocrit 37.5 % Mean Corpuscular Volume 95.7 fL Mean Corpuscular Hemoglobin 30.9 pg Mean Corpuscular Hemoglobin Concent 32.3 g/dl Platelet Count 316 K/uL Mean Platelet Volume 9.4 fL Neutrophils (%) (Auto) 59.6 % Lymphocytes (%) (Auto) 27.3 % Monocytes (%) (Auto) 10.0 % Eosinophils (%) (Auto) 2.3 % Basophils (%) (Auto) 0.5 % Neutrophils # (Auto) 4.45 K/uL Lymphocytes # (Auto) 2.04 K/uL Monocytes # (Auto) 0.75 K/uL Eosinophils # (Auto) 0.17 K/uL Basophils # (Auto) 0.04 K/uL RDW Standard Deviation 50.1 fL RDW Coefficient of Variation 14.4 % Immature Granulocyte % (Auto) 0.3 % Immature Granulocyte # (Auto) 0.02 K/uL Sodium Level 139 mmol/L Potassium Level 3.5 mmol/L Chloride Level 103 mmol/L Carbon Dioxide Level 26 mmol/L Anion Gap 10.0 mmol/L Blood Urea Nitrogen 15 mg/dl Creatinine 0.79 mg/dl Est Creatinine Clear Calc Drug Dose 65.8 ml/min Estimated GFR () 87.3 Estimated GFR (Non- 75.3 BUN/Creatinine Ratio 19.2 Random Glucose 128 mg/dl Calcium Level 8.8 mg/dl Magnesium Level 1.9 mg/dl Folate 21.26 ng/mL Test 04/29/16 11:39 Bedside Glucose 143 mg/dl Assessment and Plan (1) Diabetic foot infection Assessment & Plan: For possible repeat I&D tomorrow. She will likely need extended course of abx. Will await input from ID before requesting PICC. (2) Charcot's arthropathy Assessment & Plan: S/p reconstruction in 02/2016 (3) DM2 (diabetes mellitus, type 2) Assessment & Plan: Optimally controlled with present sliding scale coverage. Will continue. (4) Diabetic neuropathy associated with type 2 diabetes mellitus Assessment & Plan: Stable. Continue gabapentin. (5) CAD (coronary artery disease) Assessment & Plan: Stable. No evidence of ischemia at this time. Continue ASA , statin, and beta inocente. (6) Hypothyroidism Assessment & Plan: Continue Synthroid. (7) HTN (hypertension) Assessment & Plan: Controlled with triamterene/HCTZ and beta inocente. Will continue. (8) Dyslipidemia Assessment & Plan: Continue statin. (9) Fibromyalgia Assessment & Plan: Continue Paxil and gabapentin. (10) Psoriatic arthritis Assessment & Plan: On chronic Prednisone, which is continued. (11) DVT prophylaxis Assessment & Plan: SCDs Continued [facility] stay due to: multiple IV medications needed Discharge planning: home with IV medication
[2016-04-29] MEDS: DAPTOMYCIN IV 500 MG in NSS 50ML IV SCH (13:59)
--- NOTE | 2016-04-29 14:31 | Medical Consult ---
Consultation Date of Consultation: Apr 29, 2016. Attending Physician: Bert Sierra MD Reason for Consultation: Foot infection with retained hardware History of Present Illness 70-year-old female who underwent right foot surgery for Charcot changes March 17, 2016. She did well initially postoperatively, but over the last few days, has noted some yellowish, foul-smelling drainage from the surgical site along with redness and swelling of her foot. She eventually came to the emergency department where she was admitted for foot infection, is now undergone surgical debridement, but still with retained hardware. Operative cultures are now growing a methicillin sensitive Staph aureus. Currently being treated with daptomycin and aztreonam. Of note, patient carries history of allergy to amoxicillin, but actually she developed C difficile colitis following the use of amoxicillin so listed as an allergy. Has not had any significant fever, chills, or other new systemic complaints. Past Medical/Surgical History Medical Problems: (1) Cellulitis of right foot Status: Acute (2) Diabetic foot Status: Acute (3) Sepsis Status: Acute Medical Problems: (1) CAD (coronary artery disease) (2) Charcot's arthropathy (3) Diabetic neuropathy associated with type 2 diabetes mellitus (4) DM2 (diabetes mellitus, type 2) (5) DVT prophylaxis (6) Dyslipidemia (7) Fibromyalgia (8) HTN (hypertension) (9) Hypothyroidism (10) Psoriatic arthritis Family History Patient reports no known family medical history. Social History Smoking Status: Never Smoker Smokeless Tobacco Use: No Alcohol Use: socially Drug Use: none Marital Status: Occupation Status: retired Allergies Coded Allergies: Tetanus Toxoid (Verified Allergy, Mild, LOCALIZED REACTION, MADE HER FEEL SICK, 04/25/16) Minocycline (Verified Adverse Reaction, Mild, HEADACHES, 04/26/16) Amoxicillin (Verified Adverse Reaction, Unknown, "GOT C-DIFF", 04/25/16) Tetracycline (Verified Adverse Reaction, Unknown, HEADACHES, 04/25/16) Current Inpatient Medications Current Inpatient Medications Medications (Trade) Dose Ordered Sig/Humphrey Route Start Time Stop Time Status Last Admin Dose Admin Acetaminophen (Tylenol Tab) 650 mg Q4H PRN PO 04/25/16 16:30 05/25/16 16:29 Zolpidem Tartrate (Ambien Tab) 5 mg HSZ PRN PO 04/25/16 16:30 05/25/16 16:29 Aspirin (Ecotrin Tab) 81 mg BID PO 04/26/16 08:00 05/26/16 08:59 04/29/16 07:46 81 MG Atorvastatin Calcium (Lipitor Tab) 80 mg HS PO 04/25/16 21:00 05/25/16 20:59 04/28/16 20:42 80 MG Gabapentin (Neurontin Cap) 300 mg TID PO 04/25/16 20:00 05/25/16 20:59 04/29/16 12:26 300 MG Levothyroxine Sodium (Synthroid Tab) 75 mcg DAILYBB PO 04/26/16 06:30 05/26/16 06:59 04/29/16 06:29 75 MCG Methenamine Hippurate (Urex Tab) 1 gm BID PO 04/25/16 20:00 05/25/16 19:59 04/29/16 07:45 1 GM Metoprolol Succinate (Toprol Xl Tab) 25 mg HS PO 04/25/16 21:00 05/25/16 20:59 04/28/16 21:42 25 MG Multivitamins (Multivitamin Tab) 1 tab QPM PO 04/25/16 21:00 05/25/16 20:59 04/28/16 20:47 1 TAB Nitroglycerin (Nitrostat Tab) 0.4 mg Q5M PRN UT 04/25/16 16:30 05/25/16 16:29 Paroxetine HCl (pAXil TAB) 20 mg HS PO 04/25/16 21:00 05/25/16 20:59 04/28/16 20:47 20 MG Prednisone (PredniSONE TAB) 5 mg QAM PO 04/26/16 08:00 05/26/16 08:59 04/29/16 07:45 5 MG Senna (Senokot Tab) 17.2 mg HS PO 04/25/16 21:00 05/25/16 20:59 04/28/16 20:46 17.2 MG Triamterene/HCTZ (Dyazide 37.5/25 Mg Cap) 1 cap QAM PO 04/26/16 08:00 05/26/16 08:59 04/29/16 07:46 1 CAP Valacyclovir HCl (Valtrex Tab) 500 mg QAM PO 04/26/16 08:00 05/26/16 08:59 04/29/16 07:45 500 MG Lactobacillus Acidophilus (Floranex Tab) 4 tab TIDM PO 04/25/16 21:00 05/25/16 20:59 04/29/16 12:26 4 TAB Lorazepam (Ativan Inj) 0.5 mg Q4H PRN IV 04/25/16 16:30 05/25/16 16:29 Lorazepam (Ativan Inj) 1 mg Q4H PRN IV 04/25/16 16:30 05/25/16 16:29 Magnesium Hydroxide (Milk Of Magnesia Susp) 30 ml Q6H PRN PO 04/25/16 16:30 05/25/16 16:29 Bisacodyl (Dulcolax Supp) 10 mg DAILY PRN NC 04/25/16 16:30 05/25/16 16:29 Diphenhydramine HCl (Benadryl Inj) 25 mg Q4H PRN IV 04/25/16 16:30 05/25/16 16:29 Al Hydrox/Mg Hydrox/ Simethicone 15 ml 15 ml Q4H PRN PO 04/25/16 16:30 05/25/16 16:29 Promethazine HCl/ Sodium Chloride (Phenergan Inj/ Nss 50ml) 50.5 ml @ 202 mls/hr Q4H PRN IV 04/25/16 16:30 05/25/16 16:29 Ondansetron HCl (Zofran Inj) 4 mg Q6H PRN IV 04/25/16 16:30 05/25/16 16:29 Docusate Sodium (coLACE CAP) 100 mg BID PO 04/25/16 20:00 05/25/16 20:59 04/29/16 07:46 100 MG Morphine Sulfate (MoRPHine SULFATE INJ) 2 mg Q2H PRN IV 04/25/16 16:30 05/09/16 16:29 Morphine Sulfate (MoRPHine SULFATE INJ) 4 mg Q2H PRN IV 04/25/16 16:30 05/09/16 16:29 Insulin Aspart (novoLOG ASPART) SLIDING SCALE If C... ACHS SC 04/25/16 21:00 05/25/16 20:59 04/29/16 12:31 5 UNITS Glucose (Glucose 40% Gel) UD PRN PO 04/25/16 16:30 05/25/16 16:29 Glucose (Glucose Chew Tab) 1 tabs UD PRN PO 04/25/16 16:30 05/25/16 16:29 Dextrose (Dextrose 50% 50ML Syringe) 50 ml UD PRN IV 04/25/16 16:30 05/25/16 16:29 Glucagon 1 mg 1 mg UD PRN SQ 04/25/16 16:30 05/25/16 16:29 Aztreonam/Dextrose (Azactam IV/D5 100ml) 110 ml @ 100 mls/hr Q8H IV 04/25/16 20:00 05/25/16 19:59 04/29/16 12:26 100 MLS/HR Metronidazole (Flagyl Tab) 250 mg QID PO 04/25/16 21:00 05/05/16 20:59 04/29/16 12:27 250 MG Triamcinolone Acetonide 1 sprays 1 sprays HS PRISCILA 04/26/16 21:00 05/26/16 07:59 04/28/16 20:49 1 SPRAYS Daptomycin/Sodium Chloride (Cubicin IV/Nss 50ml) 60 ml @ 120 mls/hr Q24H IV 04/27/16 14:00 05/26/16 03:59 04/29/16 13:59 120 MLS/HR Tramadol HCl (Ultram Tab) 50 mg Q4H PRN PO 04/29/16 00:00 05/29/16 00:00 04/29/16 00:27 50 MG Review of Systems All systems were reviewed and are negative except as per HPI Physical Exam Date Time Temp Pulse Resp B/P Pulse Ox O2 Delivery O2 Flow Rate FiO2 04/29/16 09:41 Room Air 04/29/16 07:09 36.6 64 20 124/75 96 Room Air 04/29/16 00:06 36.9 85 18 124/74 Room Air 04/28/16 23:59 Room Air 04/28/16 20:21 36.8 84 16 118/69 93 Room Air 04/28/16 20:00 Room Air 04/28/16 18:57 36.8 83 16 114/68 97 Room Air 04/28/16 17:29 36.4 77 16 134/69 95 Room Air 04/28/16 17:00 36.5 75 16 135/74 95 Room Air 74 04/28/16 16:37 36.5 75 18 145/76 97 Room Air 97 04/28/16 16:21 Room Air 04/28/16 16:18 154/72 04/28/16 16:17 75 16 93 04/28/16 16:17 75 16 04/28/16 16:13 155/76 04/28/16 16:12 73 16 04/28/16 16:12 72 16 96 04/28/16 16:08 163/69 04/28/16 16:07 76 13 04/28/16 16:07 75 13 96 04/28/16 16:03 143/74 04/28/16 16:02 75 12 04/28/16 16:02 73 12 96 04/28/16 15:58 152/76 04/28/16 15:57 74 15 04/28/16 15:57 73 15 94 04/28/16 15:56 77 16 04/28/16 15:56 77 16 97 04/28/16 15:53 154/72 04/28/16 15:51 75 16 99 04/28/16 15:51 75 16 04/28/16 15:48 140/95 04/28/16 15:46 76 14 04/28/16 15:46 77 14 100 04/28/16 15:43 145/79 04/28/16 15:41 73 13 100 04/28/16 15:41 73 13 04/28/16 15:38 169/86 04/28/16 15:36 75 13 100 04/28/16 15:36 75 13 04/28/16 15:33 174/86 04/28/16 15:31 73 16 04/28/16 15:31 73 16 100 04/28/16 15:28 169/85 04/28/16 15:26 77 16 04/28/16 15:26 36.6 81 8 174/87 100 Mask 10 04/28/16 15:26 77 16 100 General Appearance: WD/WN, no apparent distress Head: normocephalic, atraumatic Eyes: normal inspection, EOMI, sclerae normal ENT: normal ENT inspection, hearing grossly normal, pharynx normal Neck: supple, no adenopathy, thyroid normal, trachea midline Respiratory/Chest: chest non-tender, lungs clear, normal breath sounds, no respiratory distress Cardiovascular: regular rate, rhythm, no gallop, no murmur Abdomen/GI: normal bowel sounds, non tender, soft, no organomegaly Back: normal inspection, no CVA tenderness Extremities/Musculoskelatal: no calf tenderness, normal capillary refill Neurologic/Psych: alert, oriented x 3 Skin: normal color ( been), no rash ( 10 of), + pertinent finding ( surgical dressing intact right foot) Lymphatic: no adenopathy Laboratory Results ---- RUN DATE: 04/27/16 [facility] PAGE 1 RUN TIME: 920 Specimen Inquiry PATIENT: KATY DING LOC: [place] U # : [id number] AGE/SX: 70/F ROOM: [facility] REG : 04/25/[address]: Bert Sierra MD : [id number] BED: 1 DIS : STATUS: ADM IN TLOC: SPEC #: [id number] LISANDRA: 04/25/16-141 STATUS: COMP REQ #: [id number] RECD: 04/25/16-[address]: Norman Aguilera M.D. SOURCE: DRAIN-SURF ENTR: 04/25/16-[address]: Reno Perez M.D. SPDESC: FOOT RIGHT ORDERED: SURF WND CU/SMR COMMENTS: Has Specimen Been Obtained/Collected? Y Procedure Result Verified Site GRAM STAIN Final 04/26/16 RESULT RARE EPITHELIAL CELLS MODERATE WBCs SEEN MODERATE GRAM POSITIVE COCCI SURFACE WOUND CULTURE Final 04/27/16 Organism 1 STAPHYLOCOCCUS AUREUS QUANITY MANY SENS SENSITIVITY TO FOLLOW Organism 2 CORYNEBACTERIUM SPECIES QUANITY MODERATE SENS NO SENSITIVITY TO FOLLOW 1. STAPHYLOCOCCUS AUREUS Target Route Dose RX AB Cost M.I.C. IQ ------ ----- ------ -- ------ -------- - ------ TRIMET/SULFA S <=0.5/ 9.5 * OXACILLIN S <=0.25 VANCOMYCIN S 2 ERYTHROMYCIN R >4 TETRACYCLINE S <=4 CLINDAMYCIN R <=0.5 DAPTOMYCIN S <=0.5 S = SENSITIVE I = INTERMEDIATE R = RESISTANT END OF REPORT Last 24 Hours Test 2/3/17 16:09 04/28/16 16:37 04/28/16 17:06 04/28/16 20:19 Bedside Glucose 91 mg/dl 87 mg/dl 120 mg/dl 117 mg/dl Test 04/29/16 06:51 04/29/16 07:36 04/29/16 11:39 White Blood Count 7.47 K/uL Red Blood Count 3.92 M/uL Hemoglobin 12.1 g/dL Hematocrit 37.5 % Mean Corpuscular Volume 95.7 fL Mean Corpuscular Hemoglobin 30.9 pg Mean Corpuscular Hemoglobin Concent 32.3 g/dl Platelet Count 316 K/uL Mean Platelet Volume 9.4 fL Neutrophils (%) (Auto) 59.6 % Lymphocytes (%) (Auto) 27.3 % Monocytes (%) (Auto) 10.0 % Eosinophils (%) (Auto) 2.3 % Basophils (%) (Auto) 0.5 % Neutrophils # (Auto) 4.45 K/uL Lymphocytes # (Auto) 2.04 K/uL Monocytes # (Auto) 0.75 K/uL Eosinophils # (Auto) 0.17 K/uL Basophils # (Auto) 0.04 K/uL RDW Standard Deviation 50.1 fL RDW Coefficient of Variation 14.4 % Immature Granulocyte % (Auto) 0.3 % Immature Granulocyte # (Auto) 0.02 K/uL Sodium Level 139 mmol/L Potassium Level 3.5 mmol/L Chloride Level 103 mmol/L Carbon Dioxide Level 26 mmol/L Anion Gap 10.0 mmol/L Blood Urea Nitrogen 15 mg/dl Creatinine 0.79 mg/dl Est Creatinine Clear Calc Drug Dose 65.8 ml/min Estimated GFR () 87.3 Estimated GFR (Non- 75.3 BUN/Creatinine Ratio 19.2 Random Glucose 128 mg/dl Calcium Level 8.8 mg/dl Magnesium Level 1.9 mg/dl Folate 21.26 ng/mL Bedside Glucose 124 mg/dl 143 mg/dl Assessment & Plan right foot infection following foot surgery with retained hardware with cultures positive for methicillin sensitive Staph aureus. Patient will be continued on IV daptomycin, likely will require prolonged therapy given indwelling hardware. We will then likely require a prolonged course of oral antibiotics following that. We will consider addition of rifampin in the next day or so depending on final cultures. Patient will likely require PICC line. Aztreonam discontinued.
[2016-04-29 15:54] VITALS: BP 109/66; PULSE 72; TEMP 36.7; O2SAT 94
[2016-04-29 20:12] VITALS: BP 115/70; PULSE 73
[2016-04-29] MEDS: PAROXETINE 20 MG TAB PO SCH (20:16)
[2016-04-29] MEDS: SENNA 8.6 MG TAB PO SCH ×2 (20:17→20:28)
[2016-04-29] MEDS: METOPROLOL SUCC 25MG EXT REL TAB PO SCH (20:18)
[2016-04-29] MEDS: ATORVASTATIN 40 MG TAB PO SCH (20:21)
[2016-04-29] MEDS: MULTIVITAMIN TAB PO SCH (20:22)
[2016-04-29] MEDS: TRIAMCINOLONE ACET NASAL SPRAY 10.8ML BTL NAE SCH (20:23)
[2016-04-30 00:40] VITALS: BP 123/67; PULSE 70; TEMP 36.5; O2SAT 96
[2016-04-30] MEDS ORDERED: FENTANYL CITRATE INJ 50 MCG/1 ML 2 ML VIAL ONE (07:45)
[2016-04-30] MEDS ORDERED: MIDAZOLAM HCL 1 MG/ML 2ML VIAL ONE (07:45)
--- NOTE | 2016-04-30 08:36 | Hospitalist Progress Note ---
Hospitalist Progress Note Date of Service Apr 30, 2016. Subjective Pt evaluation today including: conversation w/ patient, physical exam, lab review, review of inpatient medication list Developed diarrhea overnight. No F/C, N/V, or abd pain. Planned for possible further debridement by Ortho today. Medications Current Inpatient Medications Medications (Trade) Dose Ordered Sig/Humphrey Route Start Time Stop Time Status Last Admin Dose Admin Acetaminophen (Tylenol Tab) 650 mg Q4H PRN PO 04/25/16 16:30 05/25/16 16:29 Zolpidem Tartrate (Ambien Tab) 5 mg HSZ PRN PO 04/25/16 16:30 05/25/16 16:29 Aspirin (Ecotrin Tab) 81 mg BID PO 04/26/16 08:00 05/26/16 08:59 04/29/16 20:20 81 MG Atorvastatin Calcium (Lipitor Tab) 80 mg HS PO 04/25/16 21:00 05/25/16 20:59 04/29/16 20:21 80 MG Gabapentin (Neurontin Cap) 300 mg TID PO 04/25/16 20:00 05/25/16 20:59 04/29/16 20:19 300 MG Levothyroxine Sodium (Synthroid Tab) 75 mcg DAILYBB PO 04/26/16 06:30 05/26/16 06:59 04/29/16 06:29 75 MCG Methenamine Hippurate (Urex Tab) 1 gm BID PO 04/25/16 20:00 05/25/16 19:59 04/29/16 20:16 1 GM Metoprolol Succinate (Toprol Xl Tab) 25 mg HS PO 04/25/16 21:00 05/25/16 20:59 04/29/16 20:18 25 MG Multivitamins (Multivitamin Tab) 1 tab QPM PO 04/25/16 21:00 05/25/16 20:59 04/29/16 20:22 1 TAB Nitroglycerin (Nitrostat Tab) 0.4 mg Q5M PRN UT 04/25/16 16:30 05/25/16 16:29 Paroxetine HCl (pAXil TAB) 20 mg HS PO 04/25/16 21:00 05/25/16 20:59 04/29/16 20:16 20 MG Prednisone (PredniSONE TAB) 5 mg QAM PO 04/26/16 08:00 3/3/17 08:59 04/29/16 07:45 5 MG Senna (Senokot Tab) 17.2 mg HS PO 04/25/16 21:00 05/25/16 20:59 04/28/16 20:46 17.2 MG Triamterene/HCTZ (Dyazide 37.5/25 Mg Cap) 1 cap QAM PO 04/26/16 08:00 05/26/16 08:59 04/29/16 07:46 1 CAP Valacyclovir HCl (Valtrex Tab) 500 mg QAM PO 04/26/16 08:00 05/26/16 08:59 04/29/16 07:45 500 MG Lactobacillus Acidophilus (Floranex Tab) 4 tab TIDM PO 04/25/16 21:00 05/25/16 20:59 04/29/16 17:55 4 TAB Lorazepam (Ativan Inj) 0.5 mg Q4H PRN IV 04/25/16 16:30 05/25/16 16:29 Lorazepam (Ativan Inj) 1 mg Q4H PRN IV 04/25/16 16:30 05/25/16 16:29 Magnesium Hydroxide (Milk Of Magnesia Susp) 30 ml Q6H PRN PO 04/25/16 16:30 05/25/16 16:29 Bisacodyl (Dulcolax Supp) 10 mg DAILY PRN PA 04/25/16 16:30 05/25/16 16:29 Diphenhydramine HCl (Benadryl Inj) 25 mg Q4H PRN IV 04/25/16 16:30 05/25/16 16:29 Al Hydrox/Mg Hydrox/ Simethicone 15 ml 15 ml Q4H PRN PO 04/25/16 16:30 05/25/16 16:29 Promethazine HCl/ Sodium Chloride (Phenergan Inj/ Nss 50ml) 50.5 ml @ 202 mls/hr Q4H PRN IV 04/25/16 16:30 05/25/16 16:29 Ondansetron HCl (Zofran Inj) 4 mg Q6H PRN IV 04/25/16 16:30 05/25/16 16:29 Docusate Sodium (coLACE CAP) 100 mg BID PO 04/25/16 20:00 05/25/16 20:59 04/29/16 20:19 100 MG Morphine Sulfate (MoRPHine SULFATE INJ) 2 mg Q2H PRN IV 04/25/16 16:30 05/09/16 16:29 Morphine Sulfate (MoRPHine SULFATE INJ) 4 mg Q2H PRN IV 04/25/16 16:30 05/09/16 16:29 Insulin Aspart (novoLOG ASPART) SLIDING SCALE If C... ACHS SC 04/25/16 21:00 05/25/16 20:59 04/29/16 17:58 5 UNITS Glucose (Glucose 40% Gel) UD PRN PO 04/25/16 16:30 05/25/16 16:29 Glucose (Glucose Chew Tab) 1 tabs UD PRN PO 04/25/16 16:30 05/25/16 16:29 Dextrose (Dextrose 50% 50ML Syringe) 50 ml UD PRN IV 04/25/16 16:30 05/25/16 16:29 Glucagon (Glucagon Inj) 1 mg UD PRN SQ 04/25/16 16:30 05/25/16 16:29 Metronidazole (Flagyl Tab) 250 mg QID PO 04/25/16 21:00 05/05/16 20:59 04/29/16 20:18 250 MG Triamcinolone Acetonide 1 sprays 1 sprays HS PRISCILA 04/26/16 21:00 05/26/16 07:59 04/29/16 20:23 1 SPRAYS Daptomycin/Sodium Chloride (Cubicin IV/Nss 50ml) 60 ml @ 120 mls/hr Q24H IV 04/27/16 14:00 05/26/16 03:59 04/29/16 13:59 120 MLS/HR Tramadol HCl (Ultram Tab) 50 mg Q4H PRN PO 04/29/16 00:00 05/29/16 00:00 04/29/16 00:27 50 MG Objective Vital Signs Date Time Temp Pulse Resp B/P Pulse Ox O2 Delivery O2 Flow Rate FiO2 04/30/16 08:03 Room Air 04/30/16 00:40 36.5 70 18 123/67 96 Room Air 04/29/16 23:59 Room Air 04/29/16 20:12 73 115/70 04/29/16 20:00 Room Air 04/29/16 17:39 Room Air 04/29/16 15:54 36.7 72 20 109/66 94 04/29/16 09:41 Room Air Physical Exam General Appearance: no apparent distress Eyes: sclerae normal Neck: no JVD Respiratory/Chest: lungs clear, no respiratory distress Cardiovascular: regular rate, rhythm, no murmur Abdomen: normal bowel sounds, non tender, soft Extremities: no pedal edema Neurologic/Psychiatric: alert, oriented x 3 Skin: warm/dry Laboratory Results Last 24 Hours Test 04/29/16 11:39 04/29/16 16:50 04/29/16 20:32 04/30/16 08:17 Bedside Glucose 143 mg/dl 130 mg/dl 122 mg/dl 121 mg/dl Assessment and Plan (1) Diabetic foot infection Assessment & Plan: For possible repeat I&D today. Await final abx recs from ID. Will probably need PICC for extended course of IV abx at home. (2) Diarrhea Assessment & Plan: She has a history of CDAD in the past. She's been receiving Flagyl and probiotic. Will send stool for C. diff. (3) Charcot's arthropathy Assessment & Plan: S/p reconstruction in 02/2016 (4) DM2 (diabetes mellitus, type 2) Assessment & Plan: Optimally controlled with present sliding scale coverage. Will continue. (5) Diabetic neuropathy associated with type 2 diabetes mellitus Assessment & Plan: Stable. Continue gabapentin. (6) CAD (coronary artery disease) Assessment & Plan: Stable. No evidence of ischemia at this time. Continue ASA , statin, and beta inocente. (7) Hypothyroidism Assessment & Plan: Continue Synthroid. (8) HTN (hypertension) Assessment & Plan: Controlled with triamterene/HCTZ and beta inocente. Will continue. (9) Dyslipidemia Assessment & Plan: Continue statin. (10) Fibromyalgia Assessment & Plan: Continue Paxil and gabapentin. (11) Psoriatic arthritis Assessment & Plan: Stable on chronic Prednisone, which is continued. (12) DVT prophylaxis Assessment & Plan: SCDs Continued [facility] stay due to: multiple IV medications needed, other (possibly needs further surgical debridement) Discharge planning: home with home health, home with IV medication
[2016-04-30] MEDS: INSULIN ASPART 100 UNITS/ML 3 ML PEN SC SCH ×5 (08:55→20:20)
[2016-04-30] MEDS: METHENAMINE HIPPURATE 1 GM TAB PO SCH ×3 (08:56→20:17)
[2016-04-30] MEDS: ASPIRIN 81 MG ECTAB PO SCH ×3 (08:56→20:17)
[2016-04-30] MEDS: GABAPENTIN 300 MG CAP PO SCH ×4 (08:56→20:17)
[2016-04-30] MEDS: LACTOBACILLUS ACIDOPHILUS (FLORANEX) TAB PO SCH ×4 (08:56→16:15)
[2016-04-30] MEDS: METRONIDAZOLE 250 MG TAB PO SCH ×5 (08:56→20:17)
[2016-04-30] MEDS: DOCUSATE SODIUM 100 MG CAP PO SCH ×3 (08:57→20:16)
[2016-04-30] MEDS: TRIAMTERENE/HCTZ 37.5/25MG CAP PO SCH ×2 (08:57→10:36)
[2016-04-30] MEDS: LEVOTHYROXINE 75 MCG TAB PO SCH ×2 (08:57→10:37)
--- NOTE | 2016-04-30 09:46 | Orthopedic Progress Note ---
Orthopedic Progress Note Date of Service Apr 30, 2016. Subjective Reports: feeling well, pain controlled w PO medications, Denies: SOB, calf pain , chest pain, complaints, light headedness, nausea / vomiting Additional Notes: Diminished foot/lower leg discomfort and swelling. Loose stools today. Objective calves soft nontender, capillary refill less than 2 sec., dressing C/D/I, A&O x3 , toes mobile Dressing changed and medial and lateral wounds examined. Diminished edema. No erythema. No purulent D/C. Trace serosanguinous D/C laterally only. Date Time Temp Pulse Resp B/P Pulse Ox O2 Delivery O2 Flow Rate FiO2 04/30/16 08:03 Room Air 04/30/16 00:40 36.5 70 18 123/67 96 Room Air 04/29/16 23:59 Room Air 04/29/16 20:12 73 115/70 04/29/16 20:00 Room Air 04/29/16 17:39 Room Air 04/29/16 15:54 36.7 72 20 109/66 94 04/29/16 09:41 Room Air Assessment & Plan Assessment: Right foot wound dehiscence S/P I and D POD #2 Cellulitis-improved w/ IV anbx and I and D Dressing changed-improved appearance w/o purulence. Plan: XOCHITL GLASGOW. Wound check and dressing change in AM. NPO after MN for repeat possible I and D w/ implantation anbx beads tomorrow afternoon (1) Diabetic foot infection Acute (2) Diarrhea Acute (3) Charcot's arthropathy Resolved (4) DM2 (diabetes mellitus, type 2) Chronic (5) Diabetic neuropathy associated with type 2 diabetes mellitus Chronic (6) CAD (coronary artery disease) Chronic (7) Hypothyroidism Chronic (8) HTN (hypertension) Chronic (9) Dyslipidemia Chronic (10) Fibromyalgia Chronic (11) Psoriatic arthritis Chronic (12) DVT prophylaxis
[2016-04-30] MEDS: SENNA 8.6 MG TAB PO SCH (10:37)
--- NOTE | 2016-04-30 12:34 | Anesthesiology Progress Note ---
Anesthesia Progress Note Date of Service Apr 30, 2016. Progress Notes This is a 70 y/o w female presenting w/infected right foot for I & D.PMHx is sig. for NIDDM w/diabetic PN,HTN,Hyperlipidemia,CAD,s/p [place] 08/2014,s/p CABG ,Psoriatic arthritis,fibromyalgia,GERD,PVD lower extremities,and anemia.Discussed anesthesia w/pt,risks vs benefits,all questions answered.Informed consent obtained.
[2016-04-30] MEDS: DAPTOMYCIN IV 500 MG in NSS 50ML IV SCH (13:47)
[2016-04-30 15:38] VITALS: BP 107/64; PULSE 73; TEMP 37; O2SAT 95
[2016-04-30 20:15] VITALS: BP 127/80; PULSE 75
[2016-04-30] MEDS: TRIAMCINOLONE ACET NASAL SPRAY 10.8ML BTL NAE SCH (20:18)
[2016-04-30] MEDS: ATORVASTATIN 40 MG TAB PO SCH (20:19)
[2016-04-30] MEDS: MULTIVITAMIN TAB PO SCH (20:19)
[2016-04-30] MEDS: PAROXETINE 20 MG TAB PO SCH (20:20)
[2016-04-30] MEDS: METOPROLOL SUCC 25MG EXT REL TAB PO SCH (20:20)
[2016-04-30] MEDS: TRAMADOL HCL 50 MG TAB PO PRN (20:21)
[2016-05-01 00:02] VITALS: BP 124/73; PULSE 70; TEMP 36.8; O2SAT 97
[2016-05-01] MEDS: INSULIN ASPART 100 UNITS/ML 3 ML PEN SC SCH ×4 (08:00→21:17)
[2016-05-01 08:06] LABS: BASO % 0.6 %; BASO ABS # 0.05 K/uL (0-0.2); COMPLETE YES; EOS % 2.4 %; HEMATOCRIT 41.8 % (37-47); IG% 0.2 %; LYMPH % 34.8 %; LYMPH ABS # 2.85 K/uL (1.2-3.4); MEAN CELL VOLUME 95.9 fL (80-100); MEAN CORPUSCULAR HEMOGLOBIN 31.4 pg (25-34); MEAN CORPUSCULAR HGB CONC 32.8 g/dl (32-36); MEAN PLATELET VOLUME 9.7 fL (7.4-10.4); PLATELET COUNT 395 K/uL (130-400); RED BLOOD COUNT 4.36 M/uL (4.2-5.4); WHITE BLOOD COUNT 8.18 K/uL (4.8-10.8)
[2016-05-01 08:31] VITALS: BP 126/75; PULSE 63; TEMP 36.5; O2SAT 95
[2016-05-01 08:40] LABS: BUN/CREATININE RATIO 15.8 (10-20); CALCIUM 9.5 mg/dl (8.5-10.1); CREATININE 0.92 mg/dl (0.60-1.20); MAGNESIUM 1.9 mg/dl (1.8-2.4); POTASSIUM 3.3 mmol/L (3.5-5.1)
--- NOTE | 2016-05-01 10:22 | Infectious Disease Progress Nt ---
Progress Note Date of Service May 01, 2016. Subjective Pt evaluation today including: conversation w/ patient, physical exam, chart review, lab review, review of studies, conversation w/ center consultant, review of inpatient medication list Patient offers no new complaints today. Awaiting decision regarding need for repeat incision and drainage. Tolerating daptomycin without apparent difficulty. Remains afebrile. All Other Systems: Reviewed and Negative Medications Current Inpatient Medications Medications (Trade) Dose Ordered Sig/Humphrey Route Start Time Stop Time Status Last Admin Dose Admin Acetaminophen (Tylenol Tab) 650 mg Q4H PRN PO 04/25/16 16:30 05/25/16 16:29 Zolpidem Tartrate (Ambien Tab) 5 mg HSZ PRN PO 04/25/16 16:30 05/25/16 16:29 Aspirin (Ecotrin Tab) 81 mg BID PO 04/26/16 08:00 05/26/16 08:59 04/30/16 20:17 81 MG Atorvastatin Calcium (Lipitor Tab) 80 mg HS PO 04/25/16 21:00 05/25/16 20:59 04/30/16 20:19 80 MG Gabapentin (Neurontin Cap) 300 mg TID PO 04/25/16 20:00 05/25/16 20:59 04/30/16 20:17 300 MG Levothyroxine Sodium (Synthroid Tab) 75 mcg DAILYBB PO 04/26/16 06:30 05/26/16 06:59 04/30/16 10:37 75 MCG Methenamine Hippurate (Urex Tab) 1 gm BID PO 04/25/16 20:00 05/25/16 19:59 04/30/16 20:17 1 GM Metoprolol Succinate (Toprol Xl Tab) 25 mg HS PO 04/25/16 21:00 05/25/16 20:59 04/30/16 20:20 25 MG Multivitamins (Multivitamin Tab) 1 tab QPM PO 04/25/16 21:00 05/25/16 20:59 04/30/16 20:19 1 TAB Nitroglycerin (Nitrostat Tab) 0.4 mg Q5M PRN UT 04/25/16 16:30 05/25/16 16:29 Paroxetine HCl (pAXil TAB) 20 mg HS PO 04/25/16 21:00 05/25/16 20:59 04/30/16 20:20 20 MG Prednisone (PredniSONE TAB) 5 mg QAM PO 04/26/16 08:00 05/26/16 08:59 04/30/16 10:35 5 MG Senna (Senokot Tab) 17.2 mg HS PO 04/25/16 21:00 05/25/16 20:59 04/28/16 20:46 17.2 MG Triamterene/HCTZ (Dyazide 37.5/25 Mg Cap) 1 cap QAM PO 04/26/16 08:00 05/26/16 08:59 04/30/16 10:36 1 CAP Valacyclovir HCl (Valtrex Tab) 500 mg QAM PO 04/26/16 08:00 05/26/16 08:59 04/30/16 10:36 500 MG Lactobacillus Acidophilus (Floranex Tab) 4 tab TIDM PO 04/25/16 21:00 05/25/16 20:59 04/30/16 16:15 4 TAB Lorazepam (Ativan Inj) 0.5 mg Q4H PRN IV 04/25/16 16:30 05/25/16 16:29 Lorazepam (Ativan Inj) 1 mg Q4H PRN IV 04/25/16 16:30 05/25/16 16:29 Magnesium Hydroxide (Milk Of Magnesia Susp) 30 ml Q6H PRN PO 04/25/16 16:30 05/25/16 16:29 Bisacodyl (Dulcolax Supp) 10 mg DAILY PRN UT 04/25/16 16:30 05/25/16 16:29 Diphenhydramine HCl (Benadryl Inj) 25 mg Q4H PRN IV 04/25/16 16:30 05/25/16 16:29 Al Hydrox/Mg Hydrox/ Simethicone 15 ml 15 ml Q4H PRN PO 04/25/16 16:30 05/25/16 16:29 Promethazine HCl/ Sodium Chloride (Phenergan Inj/ Nss 50ml) 50.5 ml @ 202 mls/hr Q4H PRN IV 04/25/16 16:30 05/25/16 16:29 Ondansetron HCl (Zofran Inj) 4 mg Q6H PRN IV 04/25/16 16:30 05/25/16 16:29 Docusate Sodium (coLACE CAP) 100 mg BID PO 04/25/16 20:00 05/25/16 20:59 04/30/16 20:16 100 MG Morphine Sulfate (MoRPHine SULFATE INJ) 2 mg Q2H PRN IV 04/25/16 16:30 05/09/16 16:29 Morphine Sulfate (MoRPHine SULFATE INJ) 4 mg Q2H PRN IV 04/25/16 16:30 05/09/16 16:29 Insulin Aspart (novoLOG ASPART) SLIDING SCALE If C... ACHS SC 04/25/16 21:00 05/25/16 20:59 04/30/16 17:49 7 UNITS Glucose (Glucose 40% Gel) UD PRN PO 04/25/16 16:30 05/25/16 16:29 Glucose (Glucose Chew Tab) 1 tabs UD PRN PO 04/25/16 16:30 05/25/16 16:29 Dextrose (Dextrose 50% 50ML Syringe) 50 ml UD PRN IV 04/25/16 16:30 05/25/16 16:29 Glucagon (Glucagon Inj) 1 mg UD PRN SQ 04/25/16 16:30 05/25/16 16:29 Metronidazole (Flagyl Tab) 250 mg QID PO 04/25/16 21:00 05/05/16 20:59 04/30/16 20:17 250 MG Triamcinolone Acetonide 1 sprays 1 sprays HS PRISCILA 04/26/16 21:00 05/26/16 07:59 04/30/16 20:18 1 SPRAYS Daptomycin/Sodium Chloride (Cubicin IV/Nss 50ml) 60 ml @ 120 mls/hr Q24H IV 04/27/16 14:00 05/26/16 03:59 04/30/16 13:47 120 MLS/HR Tramadol HCl (Ultram Tab) 50 mg Q4H PRN PO 04/29/16 00:00 05/29/16 00:00 04/30/16 20:21 50 MG Objective Vital Signs Date Time Temp Pulse Resp B/P Pulse Ox O2 Delivery O2 Flow Rate FiO2 05/01/16 08:31 36.5 63 20 126/75 95 05/01/16 00:05 Room Air 05/01/16 00:02 36.8 70 18 124/73 97 Room Air 04/30/16 20:15 75 127/80 04/30/16 20:00 Room Air 04/30/16 17:02 Room Air 04/30/16 15:38 37.0 73 18 107/64 95 Room Air Physical Exam General Appearance: WD/WN, no apparent distress Eyes: normal inspection, sclerae normal ENT: normal ENT inspection, pharynx normal Neck: supple, no adenopathy, trachea midline Respiratory/Chest: chest non-tender, lungs clear, normal breath sounds, no respiratory distress Cardiovascular: regular rate, rhythm, no gallop, no murmur Abdomen: normal bowel sounds, non tender, soft, no organomegaly Extremities: non-tender, no calf tenderness, normal capillary refill Neurologic/Psychiatric: alert, oriented x 3 Skin: normal color, no rash, + pertinent finding (Surgical dressing intact) Lymphatic: no adenopathy Laboratory Results RUN DATE: 05/01/16 [facility] PAGE 1 RUN TIME: 851 Specimen Inquiry PATIENT: KATY DING LOC: [facility] U # : [id number] AGE/SX: 70/F ROOM: E416 REG : 04/25/[address]: Bert Sierra MD : [id number] BED: 1 DIS : STATUS: ADM IN TLOC: SPEC #: [id number] LISANDRA: 04/28/16 STATUS: RES REQ #: [id number] RECD: 04/28/[address]: Bert Sierra MD SOURCE: ABSCESS ENTR: 04/28/[address]: Goran Nash D.ONarda SPDESC: FOOT RIGHT Austen Prescott M.D., John, M.D. ORDERED: AER/MARISSA CULTSMR QUERIES: MNP REQ NUMBER [id number] Procedure Result Verified Site GRAM STAIN Final 04/28/16 RESULT FEW EPITHELIAL CELLS MODERATE POLYS MODERATE GRAM POSITIVE COCCI OR AER/MARISSA CULT Preliminary 05/01/16 Organism 1 STAPHYLOCOCCUS AUREUS QUANITY FEW SENS SENSITIVITY TO FOLLOW Organism 2 STREPTOCOCCUS SPECIES QUANITY FEW SENS SENSITIVITY TO FOLLOW 1. STAPHYLOCOCCUS AUREUS Target Route Dose RX AB Cost M.I.C. IQ ------ ----- ------ -- ------ -------- - ------ TRIMET/SULFA S <=0.5/ 9.5 * OXACILLIN S <=0.25 VANCOMYCIN S 2 ERYTHROMYCIN R >4 TETRACYCLINE S <=4 CLINDAMYCIN R <=0.5 DAPTOMYCIN S <=0.5 S = SENSITIVE I = INTERMEDIATE R = RESISTANT Last 24 Hours Test 04/30/16 11:28 04/30/16 16:44 04/30/16 20:11 05/01/16 07:38 Bedside Glucose 149 mg/dl 172 mg/dl 139 mg/dl White Blood Count 8.18 K/uL Red Blood Count 4.36 M/uL Hemoglobin 13.7 g/dL Hematocrit 41.8 % Mean Corpuscular Volume 95.9 fL Mean Corpuscular Hemoglobin 31.4 pg Mean Corpuscular Hemoglobin Concent 32.8 g/dl Platelet Count 395 K/uL Mean Platelet Volume 9.7 fL Neutrophils (%) (Auto) 53.0 % Lymphocytes (%) (Auto) 34.8 % Monocytes (%) (Auto) 9.0 % Eosinophils (%) (Auto) 2.4 % Basophils (%) (Auto) 0.6 % Neutrophils # (Auto) 4.32 K/uL Lymphocytes # (Auto) 2.85 K/uL Monocytes # (Auto) 0.74 K/uL Eosinophils # (Auto) 0.20 K/uL Basophils # (Auto) 0.05 K/uL RDW Standard Deviation 49.1 fL RDW Coefficient of Variation 14.2 % Immature Granulocyte % (Auto) 0.2 % Immature Granulocyte # (Auto) 0.02 K/uL Sodium Level 144 mmol/L Potassium Level 3.3 mmol/L Chloride Level 106 mmol/L Carbon Dioxide Level 24 mmol/L Anion Gap 14.0 mmol/L Blood Urea Nitrogen 15 mg/dl Creatinine 0.92 mg/dl Est Creatinine Clear Calc Drug Dose 56.5 ml/min Estimated GFR () 72.6 Estimated GFR (Non- 62.6 BUN/Creatinine Ratio 15.8 Random Glucose 114 mg/dl Calcium Level 9.5 mg/dl Magnesium Level 1.9 mg/dl Assessment and Plan (1) Diabetic foot infection Status: Acute For possible repeat I&D today. Await final abx recs from ID. Will probably need PICC for extended course of IV abx at home. (2) Diarrhea Status: Acute She has a history of CDAD in the past. She's been receiving Flagyl and probiotic. Will send stool for C. diff. (3) Charcot's arthropathy Status: Resolved S/p reconstruction in 02/2016 (4) DM2 (diabetes mellitus, type 2) Status: Chronic Optimally controlled with present sliding scale coverage. Will continue. (5) Diabetic neuropathy associated with type 2 diabetes mellitus Status: Chronic Stable. Continue gabapentin. (6) CAD (coronary artery disease) Status: Chronic Stable. No evidence of ischemia at this time. Continue ASA, statin, and beta inocente. (7) Hypothyroidism Status: Chronic Continue Synthroid. (8) HTN (hypertension) Status: Chronic Controlled with triamterene/HCTZ and beta inocente. Will continue. (9) Dyslipidemia Status: Chronic Continue statin. (10) Fibromyalgia Status: Chronic Continue Paxil and gabapentin. (11) Psoriatic arthritis Status: Chronic Stable on chronic Prednisone, which is continued. (12) DVT prophylaxis SCDs right foot infection following foot surgery with retained hardware with cultures positive for methicillin sensitive Staph aureus. Patient will be continued on IV daptomycin, likely will require prolonged therapy given indwelling hardware. We will then likely require a prolonged course of oral antibiotics following that. We will consider addition of rifampin in the next day or so depending on final cultures. Patient will require PICC line.
--- NOTE | 2016-05-01 10:25 | Orthopedic Progress Note ---
Orthopedic Progress Note Date of Service May 01, 2016. Subjective Post OP Day: 2 Reports: feeling well, pain controlled w PO medications, Denies: complaints Additional Notes: States the right foot is looking significantly better. She states the swelling was much worse when she came into the hospital and prior to surgery. Objective calves soft nontender, N/V intact, capillary refill less than 2 sec., incision C /D/I, A&O x3, toes mobile Right foot: lateral foot ulceration is stable with mild scab over the ulceration. No eschar noted. No drainage. No erythema or streaking. Mild foot and ankle swelling. Dressing changed with adaptic dressing lateral (cut to the size of the ulcer), gauze and wrap. Date Time Temp Pulse Resp B/P Pulse Ox O2 Delivery O2 Flow Rate FiO2 05/01/16 08:31 36.5 63 20 126/75 95 05/01/16 00:05 Room Air 05/01/16 00:02 36.8 70 18 124/73 97 Room Air 04/30/16 20:15 75 127/80 04/30/16 20:00 Room Air 04/30/16 17:02 Room Air 04/30/16 15:38 37.0 73 18 107/64 95 Room Air Laboratory Results 24 Hours: Test 05/01/16 07:38 White Blood Count 8.18 K/uL Red Blood Count 4.36 M/uL Hemoglobin 13.7 g/dL Hematocrit 41.8 % Mean Corpuscular Volume 95.9 fL Mean Corpuscular Hemoglobin 31.4 pg Mean Corpuscular Hemoglobin Concent 32.8 g/dl Platelet Count 395 K/uL Mean Platelet Volume 9.7 fL Neutrophils (%) (Auto) 53.0 % Lymphocytes (%) (Auto) 34.8 % Monocytes (%) (Auto) 9.0 % Eosinophils (%) (Auto) 2.4 % Basophils (%) (Auto) 0.6 % Neutrophils # (Auto) 4.32 K/uL Lymphocytes # (Auto) 2.85 K/uL Monocytes # (Auto) 0.74 K/uL Eosinophils # (Auto) 0.20 K/uL Basophils # (Auto) 0.05 K/uL Assessment & Plan Assessment: Right foot wound dehiscence S/P I and D POD #3 Cellulitis-improved w/ IV anbx and I and D Dressing changed-improved appearance w/o purulence. Will hold on repeat I & D today. Daily dressing changes. Plan: XOCHITL GLASGOW. Wound check and dressing change in AM. Continue IV anbx Continue daily dressing changes Plan for D/C with continued outpatient anbx therapy (1) Diabetic foot infection Acute (2) Diarrhea Acute (3) Charcot's arthropathy Resolved (4) DM2 (diabetes mellitus, type 2) Chronic (5) Diabetic neuropathy associated with type 2 diabetes mellitus Chronic (6) CAD (coronary artery disease) Chronic (7) Hypothyroidism Chronic (8) HTN (hypertension) Chronic (9) Dyslipidemia Chronic (10) Fibromyalgia Chronic (11) Psoriatic arthritis Chronic (12) DVT prophylaxis Assessment & Plan: SCDs
[2016-05-01] MEDS: GABAPENTIN 300 MG CAP PO SCH ×3 (10:44→20:22)
[2016-05-01] MEDS: LACTOBACILLUS ACIDOPHILUS (FLORANEX) TAB PO SCH ×3 (10:44→17:58)
[2016-05-01] MEDS: TRIAMTERENE/HCTZ 37.5/25MG CAP PO SCH (10:46)
[2016-05-01] MEDS: ASPIRIN 81 MG ECTAB PO SCH ×2 (10:47→20:22)
[2016-05-01] MEDS: LEVOTHYROXINE 75 MCG TAB PO SCH (10:47)
[2016-05-01] MEDS: METRONIDAZOLE 250 MG TAB PO SCH ×4 (10:48→20:21)
[2016-05-01] MEDS: DOCUSATE SODIUM 100 MG CAP PO SCH ×2 (10:52→20:22)
[2016-05-01] MEDS: METHENAMINE HIPPURATE 1 GM TAB PO SCH ×2 (12:28→20:23)
--- NOTE | 2016-05-01 14:20 | Progress Note ---
Subjective Date of Service: May 01, 2016. Subjective Pt evaluation today including: conversation w/ patient, physical exam, lab review, conversation w/ it solutions sales consultant, review of inpatient medication list Pain: controlled PO Intake: adequate Voiding: no voiding problems discussed plan with patient, likely to the OR tomorrow afternoon for further debridement and antibiotic beads discussed need for PICC line, signed consent discussed that she may be able to go home on Sunday, will need to set up home health no other issues, doing well otherwise Problem List Medical Problems: (1) Cellulitis of right foot Status: Acute (2) Diabetic foot Status: Acute (3) Sepsis Status: Acute Review of Systems Musculoskeletal: + joint pain (foot) All Other Systems: Reviewed and Negative Medications Current Inpatient Medications Medications (Trade) Dose Ordered Sig/Humphrey Route Start Time Stop Time Status Last Admin Dose Admin Acetaminophen (Tylenol Tab) 650 mg Q4H PRN PO 04/25/16 16:30 05/25/16 16:29 Zolpidem Tartrate (Ambien Tab) 5 mg HSZ PRN PO 04/25/16 16:30 05/25/16 16:29 Aspirin (Ecotrin Tab) 81 mg BID PO 04/26/16 08:00 05/26/16 08:59 05/01/16 10:47 81 MG Atorvastatin Calcium (Lipitor Tab) 80 mg HS PO 04/25/16 21:00 05/25/16 20:59 04/30/16 20:19 80 MG Gabapentin (Neurontin Cap) 300 mg TID PO 04/25/16 20:00 05/25/16 20:59 05/01/16 10:44 300 MG Levothyroxine Sodium (Synthroid Tab) 75 mcg DAILYBB PO 04/26/16 06:30 05/26/16 06:59 05/01/16 10:47 75 MCG Methenamine Hippurate (Urex Tab) 1 gm BID PO 04/25/16 20:00 05/25/16 19:59 05/01/16 12:28 1 GM Metoprolol Succinate (Toprol Xl Tab) 25 mg HS PO 04/25/16 21:00 05/25/16 20:59 04/30/16 20:20 25 MG Multivitamins (Multivitamin Tab) 1 tab QPM PO 04/25/16 21:00 05/25/16 20:59 04/30/16 20:19 1 TAB Nitroglycerin (Nitrostat Tab) 0.4 mg Q5M PRN UT 04/25/16 16:30 05/25/16 16:29 Paroxetine HCl (pAXil TAB) 20 mg HS PO 04/25/16 21:00 05/25/16 20:59 04/30/16 20:20 20 MG Prednisone (PredniSONE TAB) 5 mg QAM PO 04/26/16 08:00 05/26/16 08:59 05/01/16 10:47 5 MG Senna (Senokot Tab) 17.2 mg HS PO 04/25/16 21:00 05/25/16 20:59 04/28/16 20:46 17.2 MG Triamterene/HCTZ (Dyazide 37.5/25 Mg Cap) 1 cap QAM PO 04/26/16 08:00 05/26/16 08:59 05/01/16 10:46 1 CAP Valacyclovir HCl (Valtrex Tab) 500 mg QAM PO 04/26/16 08:00 05/26/16 08:59 05/01/16 10:49 500 MG Lactobacillus Acidophilus (Floranex Tab) 4 tab TIDM PO 04/25/16 21:00 05/25/16 20:59 05/01/16 12:24 4 TAB Lorazepam (Ativan Inj) 0.5 mg Q4H PRN IV 04/25/16 16:30 05/25/16 16:29 Lorazepam (Ativan Inj) 1 mg Q4H PRN IV 04/25/16 16:30 05/25/16 16:29 Magnesium Hydroxide (Milk Of Magnesia Susp) 30 ml Q6H PRN PO 04/25/16 16:30 05/25/16 16:29 Bisacodyl (Dulcolax Supp) 10 mg DAILY PRN GA 04/25/16 16:30 05/25/16 16:29 Diphenhydramine HCl (Benadryl Inj) 25 mg Q4H PRN IV 04/25/16 16:30 05/25/16 16:29 Al Hydrox/Mg Hydrox/ Simethicone 15 ml 15 ml Q4H PRN PO 04/25/16 16:30 05/25/16 16:29 Promethazine HCl/ Sodium Chloride (Phenergan Inj/ Nss 50ml) 50.5 ml @ 202 mls/hr Q4H PRN IV 04/25/16 16:30 05/25/16 16:29 Ondansetron HCl (Zofran Inj) 4 mg Q6H PRN IV 04/25/16 16:30 05/25/16 16:29 Docusate Sodium (coLACE CAP) 100 mg BID PO 04/25/16 20:00 05/25/16 20:59 05/01/16 10:52 100 MG Morphine Sulfate (MoRPHine SULFATE INJ) 2 mg Q2H PRN IV 04/25/16 16:30 05/09/16 16:29 Morphine Sulfate (MoRPHine SULFATE INJ) 4 mg Q2H PRN IV 04/25/16 16:30 05/09/16 16:29 Insulin Aspart (novoLOG ASPART) SLIDING SCALE If C... ACHS SC 04/25/16 21:00 05/25/16 20:59 05/01/16 12:27 5 UNITS Glucose (Glucose 40% Gel) UD PRN PO 04/25/16 16:30 05/25/16 16:29 Glucose (Glucose Chew Tab) 1 tabs UD PRN PO 04/25/16 16:30 05/25/16 16:29 Dextrose (Dextrose 50% 50ML Syringe) 50 ml UD PRN IV 04/25/16 16:30 05/25/16 16:29 Glucagon (Glucagon Inj) 1 mg UD PRN SQ 04/25/16 16:30 05/25/16 16:29 Metronidazole (Flagyl Tab) 250 mg QID PO 04/25/16 21:00 05/05/16 20:59 05/01/16 12:24 250 MG Triamcinolone Acetonide 1 sprays 1 sprays HS PRISCILA 04/26/16 21:00 05/26/16 07:59 04/30/16 20:18 1 SPRAYS Daptomycin/Sodium Chloride (Cubicin IV/Nss 50ml) 60 ml @ 120 mls/hr Q24H IV 04/27/16 14:00 05/26/16 03:59 04/30/16 13:47 120 MLS/HR Tramadol HCl (Ultram Tab) 50 mg Q4H PRN PO 04/29/16 00:00 05/29/16 00:00 04/30/16 20:21 50 MG Objective Vital Signs Date Time Temp Pulse Resp B/P Pulse Ox O2 Delivery O2 Flow Rate FiO2 05/01/16 08:45 Room Air 05/01/16 08:31 36.5 63 20 126/75 95 05/01/16 00:05 Room Air 05/01/16 00:02 36.8 70 18 124/73 97 Room Air 04/30/16 20:15 75 127/80 04/30/16 20:00 Room Air 04/30/16 17:02 Room Air 04/30/16 15:38 37.0 73 18 107/64 95 Room Air Physical Exam General Appearance: WD/WN, no apparent distress Neck: supple, no adenopathy, no JVD, trachea midline Respiratory/Chest: chest non-tender, lungs clear, normal breath sounds, no respiratory distress, no accessory muscle use Cardiovascular: regular rate, rhythm, no edema, no gallop, no JVD, no murmur Abdomen: normal bowel sounds, non tender, soft, no organomegaly Extremities: normal range of motion, no pedal edema, no calf tenderness, normal capillary refill, pelvis stable Neurologic/Psychiatric: 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, no motor/sensory deficits, alert, normal mood/affect, oriented x 3 Laboratory Results Last 24 Hours Test 04/30/16 16:44 04/30/16 20:11 05/01/16 07:38 05/01/16 07:52 Bedside Glucose 172 mg/dl 139 mg/dl 122 mg/dl White Blood Count 8.18 K/uL Red Blood Count 4.36 M/uL Hemoglobin 13.7 g/dL Hematocrit 41.8 % Mean Corpuscular Volume 95.9 fL Mean Corpuscular Hemoglobin 31.4 pg Mean Corpuscular Hemoglobin Concent 32.8 g/dl Platelet Count 395 K/uL Mean Platelet Volume 9.7 fL Neutrophils (%) (Auto) 53.0 % Lymphocytes (%) (Auto) 34.8 % Monocytes (%) (Auto) 9.0 % Eosinophils (%) (Auto) 2.4 % Basophils (%) (Auto) 0.6 % Neutrophils # (Auto) 4.32 K/uL Lymphocytes # (Auto) 2.85 K/uL Monocytes # (Auto) 0.74 K/uL Eosinophils # (Auto) 0.20 K/uL Basophils # (Auto) 0.05 K/uL RDW Standard Deviation 49.1 fL RDW Coefficient of Variation 14.2 % Immature Granulocyte % (Auto) 0.2 % Immature Granulocyte # (Auto) 0.02 K/uL Sodium Level 144 mmol/L Potassium Level 3.3 mmol/L Chloride Level 106 mmol/L Carbon Dioxide Level 24 mmol/L Anion Gap 14.0 mmol/L Blood Urea Nitrogen 15 mg/dl Creatinine 0.92 mg/dl Est Creatinine Clear Calc Drug Dose 56.5 ml/min Estimated GFR () 72.6 Estimated GFR (Non- 62.6 BUN/Creatinine Ratio 15.8 Random Glucose 114 mg/dl Calcium Level 9.5 mg/dl Magnesium Level 1.9 mg/dl Test 05/01/16 11:46 Bedside Glucose 119 mg/dl Assessment and Plan 70 yo female with h/o DM and 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, here with diabetic foot infection - DM foot infection: dressing changed today, plan for repeat I&D tomorrow with antibiotic beads placed appreciate ID note, will need extended course of IV antibiotics followed by oral antibiotics PICC to be placed today, consent signed continue Daptomycin, foot cultures growing MSSA - Diarrhea: likely due to antibiotic use, better today, C diff negative, continue probiotic and Flagyl while inpatient - DM type II: continue Novolog coverage and DM diet - Neuropathy: gabapentin - CAD: stable, aspirin, statin, BB - Hypothyroidism, HTN, Hyperlipidemia, Fibromyalgia, psoriatic arthritis: all chronic and stable Plan: to OR tomorrow for antibiotic beads, needs set up for home nursing and home IV antibiotics Continued [facility] stay due to: multiple IV medications needed, other (possibly needs further surgical debridement) Discharge planning: home with home health, home with IV medication
[2016-05-01] MEDS: DAPTOMYCIN IV 500 MG in NSS 50ML IV SCH (14:38)
[2016-05-01 15:43] VITALS: BP 126/75; PULSE 66; TEMP 36.5; O2SAT 94
[2016-05-01] MEDS: MULTIVITAMIN TAB PO SCH (20:21)
[2016-05-01] MEDS: METOPROLOL SUCC 25MG EXT REL TAB PO SCH (20:22)
[2016-05-01] MEDS: ATORVASTATIN 40 MG TAB PO SCH (20:22)
[2016-05-01] MEDS: PAROXETINE 20 MG TAB PO SCH (20:22)
[2016-05-01] MEDS: TRIAMCINOLONE ACET NASAL SPRAY 10.8ML BTL NAE SCH (20:22)
[2016-05-01] MEDS: SENNA 8.6 MG TAB PO SCH (20:23)
[2016-05-01 23:03] VITALS: BP 123/76; PULSE 64; TEMP 36.4; O2SAT 98
[2016-05-02] MEDS: LEVOTHYROXINE 75 MCG TAB PO SCH (06:09)
[2016-05-02] MEDS: GABAPENTIN 300 MG CAP PO SCH ×3 (08:00→21:05)
[2016-05-02] MEDS: METRONIDAZOLE 250 MG TAB PO SCH ×4 (08:00→21:03)
[2016-05-02] MEDS: LACTOBACILLUS ACIDOPHILUS (FLORANEX) TAB PO SCH ×3 (08:00→18:00)
[2016-05-02 08:04] VITALS: BP 147/82; PULSE 71; TEMP 36.6; O2SAT 94
[2016-05-02] MEDS: INSULIN ASPART 100 UNITS/ML 3 ML PEN SC SCH ×4 (08:24→21:11)
[2016-05-02 12:07] VITALS: BP 147/85; PULSE 73; TEMP 36.5; O2SAT 98
--- NOTE | 2016-05-02 14:24 | Progress Note ---
Subjective Date of Service: May 02, 2016. Subjective Pt evaluation today including: conversation w/ patient, physical exam, lab review, conversation w/ solutions delivery consultant, review of inpatient medication list Pain: controlled PO Intake: NPO for OR today Voiding: no voiding problems patient doing well overall, no diarrhea, pain controlled ready for OR today discussed plan to go home with home health and IV antibiotics, PICC placed yesterday Problem List Medical Problems: (1) Cellulitis of right foot Status: Acute (2) Diabetic foot Status: Acute (3) Sepsis Status: Acute Review of Systems Musculoskeletal: + joint pain (right foot) All Other Systems: Reviewed and Negative Medications Current Inpatient Medications Medications (Trade) Dose Ordered Sig/Humphrey Route Start Time Stop Time Status Last Admin Dose Admin Acetaminophen (Tylenol Tab) 650 mg Q4H PRN PO 04/25/16 16:30 05/25/16 16:29 Zolpidem Tartrate (Ambien Tab) 5 mg HSZ PRN PO 04/25/16 16:30 05/25/16 16:29 Aspirin (Ecotrin Tab) 81 mg BID PO 04/26/16 08:00 05/26/16 08:59 05/01/16 20:22 81 MG Atorvastatin Calcium (Lipitor Tab) 80 mg HS PO 04/25/16 21:00 05/25/16 20:59 05/01/16 20:22 80 MG Gabapentin (Neurontin Cap) 300 mg TID PO 04/25/16 20:00 05/25/16 20:59 05/01/16 20:22 300 MG Levothyroxine Sodium (Synthroid Tab) 75 mcg DAILYBB PO 04/26/16 06:30 05/26/16 06:59 05/01/16 10:47 75 MCG Methenamine Hippurate (Urex Tab) 1 gm BID PO 04/25/16 20:00 05/25/16 19:59 05/01/16 20:23 1 GM Metoprolol Succinate (Toprol Xl Tab) 25 mg HS PO 04/25/16 21:00 05/25/16 20:59 05/01/16 20:22 25 MG Multivitamins (Multivitamin Tab) 1 tab QPM PO 04/25/16 21:00 05/25/16 20:59 05/01/16 20:21 1 TAB Nitroglycerin (Nitrostat Tab) 0.4 mg Q5M PRN UT 04/25/16 16:30 05/25/16 16:29 Paroxetine HCl (pAXil TAB) 20 mg HS PO 04/25/16 21:00 05/25/16 20:59 05/01/16 20:22 20 MG Prednisone (PredniSONE TAB) 5 mg QAM PO 04/26/16 08:00 05/26/16 08:59 05/01/16 10:47 5 MG Senna (Senokot Tab) 17.2 mg HS PO 04/25/16 21:00 05/25/16 20:59 04/28/16 20:46 17.2 MG Triamterene/HCTZ (Dyazide 37.5/25 Mg Cap) 1 cap QAM PO 04/26/16 08:00 05/26/16 08:59 05/01/16 10:46 1 CAP Valacyclovir HCl (Valtrex Tab) 500 mg QAM PO 04/26/16 08:00 05/26/16 08:59 05/01/16 10:49 500 MG Lactobacillus Acidophilus (Floranex Tab) 4 tab TIDM PO 04/25/16 21:00 05/25/16 20:59 05/01/16 17:58 4 TAB Lorazepam (Ativan Inj) 0.5 mg Q4H PRN IV 04/25/16 16:30 05/25/16 16:29 Lorazepam (Ativan Inj) 1 mg Q4H PRN IV 04/25/16 16:30 05/25/16 16:29 Magnesium Hydroxide (Milk Of Magnesia Susp) 30 ml Q6H PRN PO 04/25/16 16:30 05/25/16 16:29 Bisacodyl (Dulcolax Supp) 10 mg DAILY PRN [place] 04/25/16 16:30 05/25/16 16:29 Diphenhydramine HCl (Benadryl Inj) 25 mg Q4H PRN IV 04/25/16 16:30 05/25/16 16:29 Al Hydrox/Mg Hydrox/ Simethicone 15 ml 15 ml Q4H PRN PO 04/25/16 16:30 05/25/16 16:29 Promethazine HCl/ Sodium Chloride (Phenergan Inj/ Nss 50ml) 50.5 ml @ 202 mls/hr Q4H PRN IV 04/25/16 16:30 05/25/16 16:29 Ondansetron HCl (Zofran Inj) 4 mg Q6H PRN IV 04/25/16 16:30 05/25/16 16:29 Docusate Sodium (coLACE CAP) 100 mg BID PO 04/25/16 20:00 05/25/16 20:59 05/01/16 20:22 100 MG Morphine Sulfate (MoRPHine SULFATE INJ) 2 mg Q2H PRN IV 04/25/16 16:30 05/09/16 16:29 Morphine Sulfate (MoRPHine SULFATE INJ) 4 mg Q2H PRN IV 04/25/16 16:30 05/09/16 16:29 Insulin Aspart (novoLOG ASPART) SLIDING SCALE If C... ACHS SC 04/25/16 21:00 05/25/16 20:59 05/01/16 21:17 4 UNITS Glucose (Glucose 40% Gel) UD PRN PO 04/25/16 16:30 05/25/16 16:29 Glucose (Glucose Chew Tab) 1 tabs UD PRN PO 04/25/16 16:30 05/25/16 16:29 Dextrose (Dextrose 50% 50ML Syringe) 50 ml UD PRN IV 04/25/16 16:30 05/25/16 16:29 Glucagon (Glucagon Inj) 1 mg UD PRN SQ 04/25/16 16:30 05/25/16 16:29 Metronidazole (Flagyl Tab) 250 mg QID PO 04/25/16 21:00 05/05/16 20:59 05/01/16 20:21 250 MG Triamcinolone Acetonide 1 sprays 1 sprays HS PRISCILA 04/26/16 21:00 05/26/16 07:59 05/01/16 20:22 1 SPRAYS Daptomycin/Sodium Chloride (Cubicin IV/Nss 50ml) 60 ml @ 120 mls/hr Q24H IV 04/27/16 14:00 05/26/16 03:59 05/01/16 14:38 120 MLS/HR Tramadol HCl (Ultram Tab) 50 mg Q4H PRN PO 04/29/16 00:00 05/29/16 00:00 04/30/16 20:21 50 MG Heparin Sodium (Porcine) (Heparin 10 Unit/ ml 5 ml Flush) 5 ml PRN PRN FLUSH 05/01/16 14:45 05/31/16 14:44 05/01/16 15:39 5 ML Objective Vital Signs Date Time Temp Pulse Resp B/P Pulse Ox O2 Delivery O2 Flow Rate FiO2 05/02/16 12:07 36.5 73 18 147/85 98 Room Air 05/02/16 10:24 Room Air 05/02/16 09:10 Room Air 05/02/16 08:04 36.6 71 18 147/82 94 Room Air 05/02/16 00:00 Room Air 05/01/16 23:03 36.4 64 18 123/76 98 Room Air 05/01/16 20:00 Room Air 05/01/16 16:30 Room Air 05/01/16 15:43 36.5 66 18 126/75 94 Room Air Physical Exam General Appearance: WD/WN, no apparent distress Eyes: normal inspection, EOMI, sclerae normal Neck: supple, no adenopathy, no JVD, trachea midline Respiratory/Chest: chest non-tender, lungs clear, normal breath sounds, no respiratory distress, no accessory muscle use Cardiovascular: regular rate, rhythm, no edema, no gallop, no JVD, no murmur Abdomen: normal bowel sounds, non tender, soft, no organomegaly Extremities: normal range of motion, no pedal edema, no calf tenderness, pelvis stable Neurologic/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: 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, no motor/sensory deficits, alert, normal mood/affect, oriented x 3 Laboratory Results Last 24 Hours Test 05/01/16 16:38 05/01/16 20:06 05/02/16 07:33 05/02/16 11:59 Bedside Glucose 108 mg/dl 157 mg/dl 118 mg/dl 110 mg/dl Assessment and Plan 70 yo female with h/o DM and 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, here with diabetic foot infection on right - DM right foot infection: dressing changed today, plan for repeat I&D today with antibiotic beads placed appreciate ID note, will need extended course of IV antibiotics followed by oral antibiotics PICC placed continue Daptomycin, foot cultures growing MSSA and Enterococcus sensitive to Daptomycin CM putting in place home health and nursing, IV antibiotics - Diarrhea: likely due to antibiotic use, better today, C diff negative, continue probiotic and Flagyl while inpatient - DM type II: continue Novolog coverage and DM diet - Neuropathy: gabapentin - CAD: stable, aspirin, statin, BB - Hypothyroidism, HTN, Hyperlipidemia, Fibromyalgia, psoriatic arthritis: all chronic and stable Plan: to OR today for antibiotic beads, needs set up for home nursing and home IV antibiotics, possible d/c home tomorrow if okay with orthopedic surgery Continued [facility] stay due to: multiple IV medications needed, other (possibly needs further surgical debridement) Discharge planning: home with home health, home with IV medication
--- NOTE | 2016-05-02 14:33 | Orthopedic Progress Note ---
Orthopedic Progress Note Date of Service May 02, 2016. Subjective Post OP Day: 4 Reports: feeling well, Denies: SOB, calf pain, chest pain, light headedness, nausea / vomiting Objective calves soft nontender, N/V intact, incision C/D/I, A&O x3, toes mobile Date Time Temp Pulse Resp B/P Pulse Ox O2 Delivery O2 Flow Rate FiO2 05/02/16 12:07 36.5 73 18 147/85 98 Room Air 05/02/16 10:24 Room Air 05/02/16 09:10 Room Air 05/02/16 08:04 36.6 71 18 147/82 94 Room Air 05/02/16 00:00 Room Air 05/01/16 23:03 36.4 64 18 123/76 98 Room Air 05/01/16 20:00 Room Air 05/01/16 16:30 Room Air 05/01/16 15:43 36.5 66 18 126/75 94 Room Air Assessment & Plan Assessment: Right foot wound dehiscence S/P I and D POD #4 Cellulitis-improved w/ IV anbx and I and D Plan: XOCH[facility]L [facility] Wound check and dressing change in AM. Continue IV anbx Continue daily dressing changes ORTHOPEDICALLY STABLE. NO NEED FOR FURTHER SURGICAL INTERVENTION AT THIS TIME. REGULAR DIET Plan for D/C with continued outpatient anbx therapy PER [facility] DISEASE RECOMMENDATIONS. FOLLOW UP WITH DR. PASCUAL IN 7-10 DAYS. [id number] (1) Diabetic foot infection Acute (2) Diarrhea Acute (3) Charcot's arthropathy Resolved (4) DM2 (diabetes mellitus, type 2) Chronic (5) Diabetic neuropathy associated with type 2 diabetes mellitus Chronic (6) CAD (coronary artery disease) Chronic (7) Hypothyroidism Chronic (8) HTN (hypertension) Chronic (9) Dyslipidemia Chronic (10) Fibromyalgia Chronic (11) Psoriatic arthritis Chronic (12) DVT prophylaxis
[2016-05-02] MEDS: DAPTOMYCIN IV 500 MG in NSS 50ML IV SCH (14:52)
[2016-05-02] MEDS: METHENAMINE HIPPURATE 1 GM TAB PO SCH ×2 (15:04→21:06)
[2016-05-02] MEDS: TRIAMTERENE/HCTZ 37.5/25MG CAP PO SCH (15:05)
[2016-05-02] MEDS: ASPIRIN 81 MG ECTAB PO SCH ×2 (15:05→21:05)
[2016-05-02] MEDS: DOCUSATE SODIUM 100 MG CAP PO SCH ×2 (15:05→20:00)
--- NOTE | 2016-05-02 15:37 | Infectious Disease Progress Nt ---
Progress Note Date of Service May 02, 2016. Subjective Pt evaluation today including: conversation w/ patient, physical exam, chart review, lab review, review of studies, conversation w/ regulatory affairs consultant, review of inpatient medication list Surgical wound continues to improve, no further debridement to be performed at present. Remains afebrile and tolerating daptomycin. No other new complaints. All Other Systems: Reviewed and Negative Medications Current Inpatient Medications Medications (Trade) Dose Ordered Sig/Humphrey Route Start Time Stop Time Status Last Admin Dose Admin Acetaminophen (Tylenol Tab) 650 mg Q4H PRN PO 04/25/16 16:30 05/25/16 16:29 Zolpidem Tartrate (Ambien Tab) 5 mg HSZ PRN PO 04/25/16 16:30 05/25/16 16:29 Aspirin (Ecotrin Tab) 81 mg BID PO 04/26/16 08:00 05/26/16 08:59 05/02/16 15:05 81 MG Atorvastatin Calcium (Lipitor Tab) 80 mg HS PO 04/25/16 21:00 05/25/16 20:59 05/01/16 20:22 80 MG Gabapentin (Neurontin Cap) 300 mg TID PO 04/25/16 20:00 05/25/16 20:59 05/02/16 15:04 300 MG Levothyroxine Sodium (Synthroid Tab) 75 mcg DAILYBB PO 04/26/16 06:30 05/26/16 06:59 05/01/16 10:47 75 MCG Methenamine Hippurate (Urex Tab) 1 gm BID PO 04/25/16 20:00 05/25/16 19:59 05/02/16 15:04 1 GM Metoprolol Succinate (Toprol Xl Tab) 25 mg HS PO 04/25/16 21:00 05/25/16 20:59 05/01/16 20:22 25 MG Multivitamins (Multivitamin Tab) 1 tab QPM PO 04/25/16 21:00 05/25/16 20:59 05/01/16 20:21 1 TAB Nitroglycerin (Nitrostat Tab) 0.4 mg Q5M PRN UT 04/25/16 16:30 05/25/16 16:29 Paroxetine HCl (pAXil TAB) 20 mg HS PO 04/25/16 21:00 05/25/16 20:59 05/01/16 20:22 20 MG Prednisone (PredniSONE TAB) 5 mg QAM PO 04/26/16 08:00 05/26/16 08:59 05/02/16 15:04 5 MG Senna (Senokot Tab) 17.2 mg HS PO 04/25/16 21:00 05/25/16 20:59 04/28/16 20:46 17.2 MG Triamterene/HCTZ (Dyazide 37.5/25 Mg Cap) 1 cap QAM PO 04/26/16 08:00 05/26/16 08:59 05/02/16 15:05 1 CAP Valacyclovir HCl (Valtrex Tab) 500 mg QAM PO 04/26/16 08:00 05/26/16 08:59 05/02/16 15:05 500 MG Lactobacillus Acidophilus (Floranex Tab) 4 tab TIDM PO 04/25/16 21:00 05/25/16 20:59 05/01/16 17:58 4 TAB Lorazepam (Ativan Inj) 0.5 mg Q4H PRN IV 04/25/16 16:30 05/25/16 16:29 Lorazepam (Ativan Inj) 1 mg Q4H PRN IV 04/25/16 16:30 05/25/16 16:29 Magnesium Hydroxide (Milk Of Magnesia Susp) 30 ml Q6H PRN PO 04/25/16 16:30 05/25/16 16:29 Bisacodyl (Dulcolax Supp) 10 mg DAILY PRN ND 04/25/16 16:30 05/25/16 16:29 Diphenhydramine HCl (Benadryl Inj) 25 mg Q4H PRN IV 04/25/16 16:30 05/25/16 16:29 Al Hydrox/Mg Hydrox/ Simethicone 15 ml 15 ml Q4H PRN PO 04/25/16 16:30 05/25/16 16:29 Promethazine HCl/ Sodium Chloride (Phenergan Inj/ Nss 50ml) 50.5 ml @ 202 mls/hr Q4H PRN IV 04/25/16 16:30 05/25/16 16:29 Ondansetron HCl (Zofran Inj) 4 mg Q6H PRN IV 04/25/16 16:30 05/25/16 16:29 Docusate Sodium (coLACE CAP) 100 mg BID PO 04/25/16 20:00 05/25/16 20:59 05/02/16 15:05 100 MG Morphine Sulfate (MoRPHine SULFATE INJ) 2 mg Q2H PRN IV 04/25/16 16:30 05/09/16 16:29 Morphine Sulfate (MoRPHine SULFATE INJ) 4 mg Q2H PRN IV 04/25/16 16:30 05/09/16 16:29 Insulin Aspart (novoLOG ASPART) SLIDING SCALE If C... ACHS SC 04/25/16 21:00 05/25/16 20:59 05/01/16 21:17 4 UNITS Glucose (Glucose 40% Gel) UD PRN PO 04/25/16 16:30 05/25/16 16:29 Glucose (Glucose Chew Tab) 1 tabs UD PRN PO 04/25/16 16:30 05/25/16 16:29 Dextrose (Dextrose 50% 50ML Syringe) 50 ml UD PRN IV 04/25/16 16:30 05/25/16 16:29 Glucagon (Glucagon Inj) 1 mg UD PRN SQ 04/25/16 16:30 05/25/16 16:29 Metronidazole (Flagyl Tab) 250 mg QID PO 04/25/16 21:00 05/05/16 20:59 05/01/16 20:21 250 MG Triamcinolone Acetonide 1 sprays 1 sprays HS PRISCILA 04/26/16 21:00 05/26/16 07:59 05/01/16 20:22 1 SPRAYS Daptomycin/Sodium Chloride (Cubicin IV/Nss 50ml) 60 ml @ 120 mls/hr Q24H IV 04/27/16 14:00 05/26/16 03:59 05/02/16 14:52 120 MLS/HR Tramadol HCl (Ultram Tab) 50 mg Q4H PRN PO 04/29/16 00:00 05/29/16 00:00 04/30/16 20:21 50 MG Heparin Sodium (Porcine) (Heparin 10 Unit/ ml 5 ml Flush) 5 ml PRN PRN FLUSH 05/01/16 14:45 05/31/16 14:44 05/01/16 15:39 5 ML Objective Vital Signs Date Time Temp Pulse Resp B/P Pulse Ox O2 Delivery O2 Flow Rate FiO2 05/02/16 12:07 36.5 73 18 147/85 98 Room Air 05/02/16 10:24 Room Air 05/02/16 09:10 Room Air 05/02/16 08:04 36.6 71 18 147/82 94 Room Air 05/02/16 00:00 Room Air 05/01/16 23:03 36.4 64 18 123/76 98 Room Air 05/01/16 20:00 Room Air 05/01/16 16:30 Room Air 05/01/16 15:43 36.5 66 18 126/75 94 Room Air Physical Exam General Appearance: WD/WN, no apparent distress Eyes: normal inspection, sclerae normal ENT: normal ENT inspection, pharynx normal Neck: supple, no adenopathy, trachea midline Respiratory/Chest: chest non-tender, lungs clear, normal breath sounds, no respiratory distress Cardiovascular: regular rate, rhythm, no gallop, no murmur Abdomen: normal bowel sounds, non tender, soft, no organomegaly Extremities: non-tender, no calf tenderness, normal capillary refill Neurologic/Psychiatric: alert, oriented x 3 Skin: normal color, no rash, + pertinent finding (Surgical dressing in place) Lymphatic: no adenopathy Laboratory Results Last 24 Hours Test 05/01/16 16:38 05/01/16 20:06 05/02/16 07:33 05/02/16 11:59 Bedside Glucose 108 mg/dl 157 mg/dl 118 mg/dl 110 mg/dl Assessment and Plan (1) Diabetic foot infection Status: Acute (2) Diarrhea Status: Acute (3) Charcot's arthropathy Status: Resolved (4) DM2 (diabetes mellitus, type 2) Status: Chronic (5) Diabetic neuropathy associated with type 2 diabetes mellitus Status: Chronic (6) CAD (coronary artery disease) Status: Chronic (7) Hypothyroidism Status: Chronic (8) HTN (hypertension) Status: Chronic (9) Dyslipidemia Status: Chronic (10) Fibromyalgia Status: Chronic (11) Psoriatic arthritis Status: Chronic (12) DVT prophylaxis SCDs right foot infection following foot surgery with retained hardware with cultures positive for methicillin sensitive Staph aureus. Patient will be continued on IV daptomycin, likely will require prolonged therapy given indwelling hardware. We will then likely require a prolonged course of oral antibiotics following that. Outpatient therapy being arranged. We will continue to follow.
[2016-05-02 15:52] VITALS: BP 121/74; PULSE 77; TEMP 36.9; O2SAT 97
[2016-05-02 16:10] VITALS: O2SAT 97
[2016-05-02] MEDS: SENNA 8.6 MG TAB PO SCH (21:00)
[2016-05-02] MEDS: ATORVASTATIN 40 MG TAB PO SCH (21:03)
[2016-05-02] MEDS: METOPROLOL SUCC 25MG EXT REL TAB PO SCH (21:03)
[2016-05-02] MEDS: TRIAMCINOLONE ACET NASAL SPRAY 10.8ML BTL NAE SCH (21:04)
[2016-05-02] MEDS: PAROXETINE 20 MG TAB PO SCH (21:06)
[2016-05-02] MEDS: MULTIVITAMIN TAB PO SCH (21:06)
[2016-05-03 00:44] VITALS: BP 134/78; PULSE 73; TEMP 36.4; O2SAT 96
[2016-05-03] MEDS: LEVOTHYROXINE 75 MCG TAB PO SCH (06:33)
[2016-05-03] MEDS: DOCUSATE SODIUM 100 MG CAP PO SCH (07:46)
[2016-05-03] MEDS: ASPIRIN 81 MG ECTAB PO SCH (07:46)
[2016-05-03] MEDS: GABAPENTIN 300 MG CAP PO SCH ×2 (07:46→14:00)
[2016-05-03] MEDS: METHENAMINE HIPPURATE 1 GM TAB PO SCH (07:46)
[2016-05-03] MEDS: LACTOBACILLUS ACIDOPHILUS (FLORANEX) TAB PO SCH ×2 (07:46→12:10)
[2016-05-03] MEDS: METRONIDAZOLE 250 MG TAB PO SCH ×2 (07:47→12:09)
[2016-05-03] MEDS: TRIAMTERENE/HCTZ 37.5/25MG CAP PO SCH (07:47)
[2016-05-03 07:48] VITALS: BP 134/82; PULSE 65; TEMP 36.6; O2SAT 98
[2016-05-03 08:10] VITALS: O2SAT 98
[2016-05-03] MEDS: INSULIN ASPART 100 UNITS/ML 3 ML PEN SC SCH ×2 (09:04→12:39)
[2016-05-03] MEDS ORDERED: DAPT500I IV (09:29)
[2016-05-03] MEDS ORDERED: ULT50X PO (09:29)
--- NOTE | 2016-05-03 09:36 | Discharge Instructions ---
Discharge Instructions Admission Reason for Admission: Cellulitis Of R Foot/ Diabetic Foot Discharge Discharge Diagnosis / Problem: Right foot cellulitis, infected hardware, Charcot arthropathy right foot Discharge Goals Goal(s): Improve function, Improve disease control Activity Recommendations Activity Limitations: resume your previous activity Lifting Limitations: none Exercise/Sports Limitations: as tolerated May Resume Sexual Activity: when tolerated Shower/Bathe: keep incision dry (do not soak foot in tub) Driving or Machine Use: do not drive while taking Ultram . Instructions / Follow-Up Instructions / Follow-Up Medications: - DAPTOMYCIN: 500mg IV daily x 6 more weeks, you will follow up with Dr. Rolon for further instructions and he will recommend an oral antibiotic when the IV is finished - ULTRAM: use as needed for right foot pain, do not take more than prescribed Home nursing dressing changes: COVER WITH XEROFORM, DRY GAUZE AND SECURE WITH KERLIX. TO BE CHANGED DAILY FOLLOW UP - Dr. Nash in 7-10 days, call his office, [phone] - Dr. Rolon in 3-4 weeks, call his office, [phone] - Dr. Perez in 2 weeks, call office for appointment Current Hospital Diet Patient's current hospital diet: Diabetes Type 2 Diet Discharge Diet Recommended Diet: Diabetes Type 2 Diet Procedures Procedures Performed: Right Foot Incision and Drainage lateral foot; Irrigation and Debridement of skin and Fascia of the Medial and Lateral Incisions Pending Studies Studies pending at discharge: no Laboratory Results Hemoglobin A1c Test 03/06/16 10:23 Range/Units Estimated Average Glucose 151 mg/dl Hemoglobin A1c 6.9 H 4.5-5.6 % Lipid Panel Test 03/06/16 10:23 Range/Units Triglycerides Level 252 H 0-150 mg/dl Cholesterol Level 168 0-200 mg/dl HDL Cholesterol 39 mg/dl Cholesterol/HDL Ratio 4.3 LDL Cholesterol, Calculated 79 mg/dl Medical Emergencies . Who to Call and When: Medical Emergencies: If at any time you feel your situation is an emergency, please call 911 immediately. . Non-Emergent Contact Non-Emergency issues call your: Surgeon Call Non-Emergent contact if: you have a fever, your pain is worsening, your pain is concerning you, you have any medication questions . . "Provider Documentation" section prepared by Deniz Joseph. VTE Core Measure Inpt VTE Proph given/why not?: SCD's [place] Drug Monitoring Program Search Results: no issues identified
[2016-05-03 11:48] VITALS: BP 130/76; PULSE 72; TEMP 36.7; O2SAT 97
--- NOTE | 2016-05-03 11:51 | Infectious Disease Progress Nt ---
Progress Note Date of Service May 03, 2016. Subjective Pt evaluation today including: conversation w/ patient, physical exam, chart review, lab review, review of studies, conversation w/ data processing systems consultant, review of inpatient medication list Patient offering no new complaints today. Pain controlled. Tolerating antibiotic without apparent difficulty. Remains afebrile. All Other Systems: Reviewed and Negative Medications Current Inpatient Medications Medications (Trade) Dose Ordered Sig/Humphrey Route Start Time Stop Time Status Last Admin Dose Admin Acetaminophen (Tylenol Tab) 650 mg Q4H PRN PO 04/25/16 16:30 05/25/16 16:29 Zolpidem Tartrate (Ambien Tab) 5 mg HSZ PRN PO 04/25/16 16:30 05/25/16 16:29 Aspirin (Ecotrin Tab) 81 mg BID PO 04/26/16 08:00 05/26/16 08:59 05/03/16 07:46 81 MG Atorvastatin Calcium (Lipitor Tab) 80 mg HS PO 04/25/16 21:00 05/25/16 20:59 05/02/16 21:03 80 MG Gabapentin (Neurontin Cap) 300 mg TID PO 04/25/16 20:00 05/25/16 20:59 05/03/16 07:46 300 MG Levothyroxine Sodium (Synthroid Tab) 75 mcg DAILYBB PO 04/26/16 06:30 05/26/16 06:59 05/03/16 06:33 75 MCG Methenamine Hippurate (Urex Tab) 1 gm BID PO 04/25/16 20:00 05/25/16 19:59 05/03/16 07:46 1 GM Metoprolol Succinate (Toprol Xl Tab) 25 mg HS PO 04/25/16 21:00 05/25/16 20:59 05/02/16 21:03 25 MG Multivitamins (Multivitamin Tab) 1 tab QPM PO 04/25/16 21:00 05/25/16 20:59 05/02/16 21:06 1 TAB Nitroglycerin (Nitrostat Tab) 0.4 mg Q5M PRN UT 04/25/16 16:30 05/25/16 16:29 Paroxetine HCl (pAXil TAB) 20 mg HS PO 04/25/16 21:00 05/25/16 20:59 05/02/16 21:06 20 MG Prednisone (PredniSONE TAB) 5 mg QAM PO 04/26/16 08:00 05/26/16 08:59 05/03/16 07:46 5 MG Senna (Senokot Tab) 17.2 mg HS PO 04/25/16 21:00 05/25/16 20:59 04/28/16 20:46 17.2 MG Triamterene/HCTZ (Dyazide 37.5/25 Mg Cap) 1 cap QAM PO 04/26/16 08:00 05/26/16 08:59 05/03/16 07:47 1 CAP Valacyclovir HCl (Valtrex Tab) 500 mg QAM PO 04/26/16 08:00 05/26/16 08:59 05/03/16 07:46 500 MG Lactobacillus Acidophilus (Floranex Tab) 4 tab TIDM PO 04/25/16 21:00 05/25/16 20:59 05/03/16 07:46 4 TAB Lorazepam (Ativan Inj) 0.5 mg Q4H PRN IV 04/25/16 16:30 05/25/16 16:29 Lorazepam (Ativan Inj) 1 mg Q4H PRN IV 04/25/16 16:30 05/25/16 16:29 Magnesium Hydroxide (Milk Of Magnesia Susp) 30 ml Q6H PRN PO 04/25/16 16:30 05/25/16 16:29 Bisacodyl (Dulcolax Supp) 10 mg DAILY PRN [place] 04/25/16 16:30 05/25/16 16:29 Diphenhydramine HCl (Benadryl Inj) 25 mg Q4H PRN IV 04/25/16 16:30 05/25/16 16:29 Al Hydrox/Mg Hydrox/ Simethicone 15 ml 15 ml Q4H PRN PO 04/25/16 16:30 05/25/16 16:29 Promethazine HCl/ Sodium Chloride (Phenergan Inj/ Nss 50ml) 50.5 ml @ 202 mls/hr Q4H PRN IV 04/25/16 16:30 05/25/16 16:29 Ondansetron HCl (Zofran Inj) 4 mg Q6H PRN IV 04/25/16 16:30 05/25/16 16:29 Docusate Sodium (coLACE CAP) 100 mg BID PO 04/25/16 20:00 05/25/16 20:59 05/03/16 07:46 100 MG Morphine Sulfate (MoRPHine SULFATE INJ) 2 mg Q2H PRN IV 04/25/16 16:30 05/09/16 16:29 Morphine Sulfate (MoRPHine SULFATE INJ) 4 mg Q2H PRN IV 04/25/16 16:30 05/09/16 16:29 Insulin Aspart (novoLOG ASPART) SLIDING SCALE If C... ACHS SC 04/25/16 21:00 05/25/16 20:59 05/03/16 09:04 5 UNITS Glucose (Glucose 40% Gel) UD PRN PO 04/25/16 16:30 05/25/16 16:29 Glucose (Glucose Chew Tab) 1 tabs UD PRN PO 04/25/16 16:30 05/25/16 16:29 Dextrose (Dextrose 50% 50ML Syringe) 50 ml UD PRN IV 04/25/16 16:30 05/25/16 16:29 Glucagon (Glucagon Inj) 1 mg UD PRN SQ 04/25/16 16:30 05/25/16 16:29 Metronidazole (Flagyl Tab) 250 mg QID PO 04/25/16 21:00 05/05/16 20:59 05/03/16 07:47 250 MG Triamcinolone Acetonide 1 sprays 1 sprays HS PRISCILA 04/26/16 21:00 05/26/16 07:59 05/02/16 21:04 1 SPRAYS Daptomycin/Sodium Chloride (Cubicin IV/Nss 50ml) 60 ml @ 120 mls/hr Q24H IV 04/27/16 14:00 05/26/16 03:59 05/02/16 14:52 120 MLS/HR Tramadol HCl (Ultram Tab) 50 mg Q4H PRN PO 04/29/16 00:00 05/29/16 00:00 04/30/16 20:21 50 MG Heparin Sodium (Porcine) (Heparin 10 Unit/ ml 5 ml Flush) 5 ml PRN PRN FLUSH 05/01/16 14:45 05/31/16 14:44 05/03/16 08:29 5 ML Objective Vital Signs Date Time Temp Pulse Resp B/P Pulse Ox O2 Delivery O2 Flow Rate FiO2 05/03/16 11:48 36.7 72 14 130/76 97 Room Air 05/03/16 08:10 98 Room Air 05/03/16 08:00 Room Air 05/03/16 07:48 36.6 65 14 134/82 98 Room Air 05/03/16 00:44 36.4 73 18 134/78 96 Room Air 05/03/16 00:15 Room Air 05/02/16 16:10 97 Room Air 05/02/16 15:52 36.9 77 22 121/74 97 Room Air 05/02/16 12:07 36.5 73 18 147/85 98 Room Air Physical Exam General Appearance: WD/WN, no apparent distress Eyes: normal inspection, EOMI, sclerae normal ENT: normal ENT inspection, pharynx normal Neck: supple, no adenopathy, trachea midline Respiratory/Chest: lungs clear, normal breath sounds, no respiratory distress Cardiovascular: regular rate, rhythm, no gallop, no murmur Abdomen: normal bowel sounds, non tender, soft, no organomegaly Extremities: non-tender, no calf tenderness Neurologic/Psychiatric: alert, oriented x 3 Skin: normal color, no rash Lymphatic: no adenopathy Laboratory Results Last 24 Hours Test 05/02/16 11:59 05/02/16 16:54 05/02/16 20:07 05/03/16 07:50 Bedside Glucose 110 mg/dl 155 mg/dl 166 mg/dl 113 mg/dl Assessment and Plan (1) Diabetic foot infection Status: Acute (2) Diarrhea Status: Acute (3) Charcot's arthropathy Status: Resolved (4) DM2 (diabetes mellitus, type 2) Status: Chronic (5) Diabetic neuropathy associated with type 2 diabetes mellitus Status: Chronic (6) CAD (coronary artery disease) Status: Chronic (7) Hypothyroidism Status: Chronic (8) HTN (hypertension) Status: Chronic (9) Dyslipidemia Status: Chronic (10) Fibromyalgia Status: Chronic (11) Psoriatic arthritis Status: Chronic (12) DVT prophylaxis SCDs right foot infection following foot surgery with retained hardware with cultures positive for methicillin sensitive Staph aureus. Patient will be continued on IV daptomycin, likely will require prolonged therapy given indwelling hardware. We will then likely require a prolonged course of oral antibiotics following that. Outpatient therapy being arranged.
[2016-05-03] MEDS: DAPTOMYCIN IV 500 MG in NSS 50ML IV SCH (14:00)
[2016-05-03 14:50] VITALS: BP 130/76; PULSE 72; TEMP 36.7; O2SAT 97
--- NOTE | 2016-05-03 15:04 | Discharge Summary ---
Discharge Summary Admission Date: Apr 25, 2016 at 16:27 Discharge Date: May 03, 2016 Discharge Disposition: Home with services Principal Diagnosis: Right foot cellulitis and hardware infection Problems/Secondary Diagnoses: DM type II Charcot arthropathy Immunizations: Have You Had Influenza Vaccine: Yes Influenza Vaccine Date: Feb 09, 2005 History of Tetanus Vaccine?: Yes Tetanus Immunization Date: Sep 09, 2004 History of Pneumococcal: No History of Hepatitis B Vaccine: No Procedures: Right Foot Incision and Drainage lateral foot; Irrigation and Debridement of skin and Fascia of the Medial and Lateral Incisions Consultations: Orthopedic surgery Infectious disease Medication Reconciliation New Medications: Daptomycin (Daptomycin) 500 Mg Inj 500 MG IV DAILY for 42 Days, #42 DOSE 0 Refills Tramadol HCl (Tramadol HCl) 50 Mg Tab 50 MG PO Q4H PRN for Pain, #30 TAB 0 Refills Continued Medications: Aspirin (Aspirin Chewable) 81 Mg Chew 81 MG PO BID for 30 Days Atorvastatin (Lipitor) 80 Mg Tab 80 MG PO HS, 0 Refills Calcium Carbonate-Vitamin D (Calcium 500 + D) 1 Tab Tab 1 CHW PO QPM Gabapentin (Gabapentin) 300 Mg Cap 300 CAP PO TID Levothyroxine Sodium (Levothyroxine Sodium) 75 Mcg Tab 75 MCG PO QAM Methenamine Hippurate (Methenamine Hippurate) 1 Gm Tab 1 TAB PO BID Metoprolol Succinate (Toprol Xl) 25 Mg Tabcr 25 MG PO HS Multivitamin (Multivitamin) Tab 1 TAB PO QPM, TAB Nitroglycerin (Nitrostat) 0.4 Mg Tab 0.4 MG UT PRN, BTL Paroxetine (Paxil) 20 Mg Tab 20 MG PO HS Prednisone (Prednisone) 1 Mg Tab 5 MG PO QAM Probiotic Product (Probiotic) 1 Cap Cap 1 CAP PO QAM Senna (Senna Lax) 8.6 Mg Tab 17.2 MG PO HS for 14 Days, TAB Triamcinolone Acetonide (Nasal (Nasacort Allergy 24Hr) 55 Mcg/Act Spr Triamterene/Hctz (Dyazide 37.5MG/25MG) Cap 1 TAB PO QAM, CAP Valacyclovir (Valtrex) 500 Mg Tab 500 MG PO QAM, 0 Refills Discharge Exam Patient feeling well, pain controlled. Discussed going home and she is in agreement. Plan for Daptomycin IV today and then home with home nursing. Review of Systems: Constitutional: No chills, No fatigue, No fever, No problem reported, No sweats, No weakness, No weight loss Eyes: No diplopia, No discharge, No eye pain, No problem reported, No redness, No worsening of vision ENT: No dental problems, No hearing loss, No nasal symptoms, No problem reported, No sore throat, No tinnitus, No trouble swallowing, No unusual epistaxis Respiratory: No cough, No dyspnea at rest, No dyspnea on exertion, No hemoptysis, No problem reported, No shortness of breath, No sputum, No wheezing Cardiovascular: No PND, No chest pain, No claudication, No edema, No orthopnea, No palpitations, No problem reported Abdomen: No GI bleeding, No constipation, No diarrhea, No nausea, No pain, No problem reported, No vomiting Musculoskeletal: + joint pain (right foot, controlled), No calf pain, No muscle pain, No problem reported, No swelling Genitourinary - Female: No dysuria, No hematuria, No urinary frequency, No urinary incontinence, No urinary retention, No urinary urgency Psychiatric: No anhedonism, No anxiety, No depression symptoms, No insomnia , No problem reported, No substance abuse Endocrine: No excessive thirst, No excessive urination, No fatigue, No problem reported Hematologic / Lymphatic: No abnormal bleeding/bruising, No clotting problems , No night sweats, No problem reported, No swollen lymph nodes Integumentary: No bleeding, No color change, No itch, No new/changing skin lesions, No problem reported, No rash Physical Exam: General Appearance: WD/WN, no apparent distress Eyes: normal inspection, EOMI, sclerae normal ENT: normal ENT inspection, hearing grossly normal, pharynx normal Neck: supple, no adenopathy, no JVD, trachea midline Respiratory/Chest: chest non-tender, lungs clear, normal breath sounds, no respiratory distress, no accessory muscle use Cardiovascular: regular rate, rhythm, no edema, no gallop, no JVD, no murmur , normal peripheral pulses Abdomen / GI: normal bowel sounds, non tender, soft, no organomegaly Extremities: normal inspection, no calf tenderness, normal capillary refill , no pedal edema, normal range of motion Neurologic/Psychiatric: transportation program director II-XII nml as tested, no motor/sensory deficits , alert, normal mood/affect, normal reflexes, oriented x 3 Skin: normal color, warm/dry, no rash Hospital Course 70 yo female with h/o DM and 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, here with diabetic foot infection on right - DM right foot infection, cellulitis: s/p incision and drainage, irrigation and debridement of skin and fascia on 04/28/16 treated with Daptomycin IV while inpatient, will d/c home on Daptomycin 500mg IV daily PICC placed foot cultures growing MSSA and Enterococcus sensitive to Daptomycin CM putting in place home health and nursing, IV antibiotics - Diarrhea: likely due to antibiotic use, better today, C diff negative, continue probiotic and Flagyl while inpatient, no need to continue further - DM type II: continue Novolog coverage and DM diet - Neuropathy: gabapentin - CAD: stable, aspirin, statin, BB - Hypothyroidism, HTN, Hyperlipidemia, Fibromyalgia, psoriatic arthritis: all chronic and stable Plan: home with IV daptomycin and home nursing, wound changes Total Time Spent: Greater than 30 minutes This includes examination of the patient, discharge planning, medication reconciliation, and communication with other providers. Discharge Instructions Please refer to the electronic Patient Visit Report (Discharge Instructions) for additional information. Follow-Up Dr. Nash in 7-[address] Perez in [address] Rolon in 3-4 weeks Additional Copies To Goran Nash D.O.; Brandon Rolon MD; Reno Perez M.D.
== END 2016-05-03 16:35 | disposition home health service (06) | DRG 982 ==
LOC: ENRESERVTM → ENRESERVDT → ENRESERV → C.EDB 14:05 → C.4E 16:27
PROVIDERS: ADMIT Hospitalist; ATTEND Internal Medicine
PROC: 0JDQ0ZZ Extraction of Right Foot Subcutaneous Tissue and Fascia, Open Approach (ICD-10-PCS; principal; 2016-04-28 13:15)
PROC: 02HV33Z Insertion of Infusion Device into Superior Vena Cava, Percutaneous Approach (ICD-10-PCS; 2016-05-01)
DX: E11.69 Type 2 diabetes mellitus with other specified complication (principal); L03.115 Cellulitis of right lower limb; N39.0 Urinary tract infection, site not specified; E11.51 Type 2 diabetes mellitus with diabetic peripheral angiopathy without gangrene; E11.610 Type 2 diabetes mellitus with diabetic neuropathic arthropathy; Z79.82 Long term (current) use of aspirin; Z98.1 Arthrodesis status; E78.00 Pure hypercholesterolemia, unspecified; E03.9 Hypothyroidism, unspecified; F32.9 Major depressive disorder, single episode, unspecified; B95.61 Methicillin susceptible Staphylococcus aureus infection as the cause of diseases classified elsewhere; I25.10 Atherosclerotic heart disease of native coronary artery without angina pectoris; M79.7 Fibromyalgia; L40.50 Arthropathic psoriasis, unspecified; Z95.1 Presence of aortocoronary bypass graft; I10 Essential (primary) hypertension

== ENCOUNTER → 2016-05-08 | Outpatient (CLI) | payer BC ==
[~2016-05-08] MED LIST changes: +DAPT500I IV; -DYZ PO; -OXYC-57 PO; +TRIA1SPR4; +TRIA37.5 PO; -TRIA3AER NAE; +ULT50X PO
[2016-05-08 10:34] LABS: HEMATOCRIT 38.5 % (37-47); MEAN CELL VOLUME 93.4 fL (80-100); MEAN CORPUSCULAR HEMOGLOBIN 30.8 pg (25-34); PLATELET COUNT 379 K/uL (130-400); RED BLOOD COUNT 4.12 M/uL (4.2-5.4); WHITE BLOOD COUNT 8.69 K/uL (4.8-10.8)
[2016-05-08 10:42] LABS: ALT/SGPT 43 U/L (12-78); BLOOD UREA NITROGEN 16 mg/dl (7-18); C-REACTIVE PROTEIN 2.03 mg/dl (0-0.29); CALCIUM 9.1 mg/dl (8.5-10.1); CARBON DIOXIDE 26 mmol/L (21-32); CHLORIDE 102 mmol/L (98-107); CREATININE 0.91 mg/dl (0.60-1.20); GLUCOSE 145 mg/dl (70-99); POTASSIUM 3.4 mmol/L (3.5-5.1); SODIUM 141 mmol/L (136-145)
[2016-05-08 10:45] LABS: ALB/GLOB RATIO 0.7 (0.9-2); ALKALINE PHOSPHATASE 125 U/L (45-117); AST/SGOT 22 U/L (15-37)
== END | disposition home or self-care (01) ==
LOC: C.LABSPEC 10:14
PROVIDERS: ATTEND Internal Medicine
DX: A41.9 Sepsis, unspecified organism (principal)

== ENCOUNTER → 2016-05-15 | Outpatient (CLI) | payer BC ==
[2016-05-15 10:53] LABS: MEAN CELL VOLUME 92.9 fL (80-100); MEAN CORPUSCULAR HGB CONC 33.3 g/dl (32-36); PLATELET COUNT 434 K/uL (130-400); WHITE BLOOD COUNT 12.24 K/uL (4.8-10.8)
[2016-05-15 11:07] LABS: ALB/GLOB RATIO 0.6 (0.9-2); ALKALINE PHOSPHATASE 134 U/L (45-117); ALT/SGPT 28 U/L (12-78); AST/SGOT 15 U/L (15-37); BLOOD UREA NITROGEN 19 mg/dl (7-18); BUN/CREATININE RATIO 19.6 (10-20); C-REACTIVE PROTEIN 4.57 mg/dl (0-0.29); CALCIUM 9.1 mg/dl (8.5-10.1); CARBON DIOXIDE 27 mmol/L (21-32); CHLORIDE 99 mmol/L (98-107); CREATININE 0.97 mg/dl (0.60-1.20); GLUCOSE 163 mg/dl (70-99); POTASSIUM 3.5 mmol/L (3.5-5.1); SODIUM 140 mmol/L (136-145)
== END | disposition home or self-care (01) ==
LOC: C.LABSPEC 10:38
PROVIDERS: ATTEND Internal Medicine
DX: Z79.2 Long term (current) use of antibiotics (principal)

== ENCOUNTER → 2016-05-17 | Outpatient (CLI) | payer BC ==
[2016-05-17 13:43] LABS: MANUAL MICROSCOPIC REQUIRED? NO; REVIEW REQ? NO; URINE APPEARANCE TURBID (CLEAR); URINE BILIRUBIN NEG (NEG); URINE COLOR YELLOW; URINE EPITHELIAL CELL AUTO >30 /lpf (0-5); URINE NITRITE NEG (NEG); URINE SPECIFIC GRAVITY 1.013 (1.000-1.030); UROBILINOGEN NEG (NEG)
== END | disposition home or self-care (01) ==
LOC: C.LAB1850 11:21
PROVIDERS: ATTEND Internal Medicine Infectious Disease
DX: N39.0 Urinary tract infection, site not specified (principal)

== ENCOUNTER → 2016-05-22 | Outpatient (CLI) | payer BC ==
[~2016-05-22] MED LIST changes: +ASPI81TA28 PO; +CYAN10005 PO; +GABA1CAP5 PO; +METF500T5 PO; +NEOMOIN2 TD; +NF1420 PO; +PRED-301 PO; +SENNTAB23 PO
[2016-05-22 11:07] LABS: HEMATOCRIT 37.4 % (37-47); MEAN CELL VOLUME 94.2 fL (80-100); MEAN CORPUSCULAR HEMOGLOBIN 30.7 pg (25-34); MEAN CORPUSCULAR HGB CONC 32.6 g/dl (32-36); PLATELET COUNT 427 K/uL (130-400); RED BLOOD COUNT 3.97 M/uL (4.2-5.4); WHITE BLOOD COUNT 9.23 K/uL (4.8-10.8)
[2016-05-22 11:38] LABS: ALT/SGPT 29 U/L (12-78); AST/SGOT 17 U/L (15-37); BLOOD UREA NITROGEN 16 mg/dl (7-18); BUN/CREATININE RATIO 15.5 (10-20); CARBON DIOXIDE 28 mmol/L (21-32); CHLORIDE 100 mmol/L (98-107); GLUCOSE 134 mg/dl (70-99); POTASSIUM 3.4 mmol/L (3.5-5.1); SODIUM 138 mmol/L (136-145)
[2016-05-22 11:41] LABS: ALB/GLOB RATIO 0.7 (0.9-2); ALKALINE PHOSPHATASE 123 U/L (45-117)
== END | disposition home or self-care (01) ==
LOC: C.LABSPEC 10:38
PROVIDERS: ATTEND Internal Medicine
DX: Z00.00 Encounter for general adult medical examination without abnormal findings (principal)

== ENCOUNTER → 2016-06-05 | Outpatient (CLI) | payer BC ==
[~2016-06-05] MED LIST changes: -ASPI81TA28 PO; -CYAN10005 PO; -GABA1CAP5 PO; -METF500T5 PO; -NEOMOIN2 TD; -NF1420 PO; -PRED-301 PO; -SENNTAB23 PO
[2016-06-05 15:57] LABS: HEMATOCRIT 38.8 % (37-47); MEAN CELL VOLUME 92.6 fL (80-100); MEAN CORPUSCULAR HEMOGLOBIN 29.8 pg (25-34); MEAN CORPUSCULAR HGB CONC 32.2 g/dl (32-36); PLATELET COUNT 384 K/uL (130-400); RED BLOOD COUNT 4.19 M/uL (4.2-5.4)
[2016-06-05 16:09] LABS: ALT/SGPT 33 U/L (12-78); AST/SGOT 16 U/L (15-37); BLOOD UREA NITROGEN 20 mg/dl (7-18); CALCIUM 8.8 mg/dl (8.5-10.1); CARBON DIOXIDE 29 mmol/L (21-32); CHLORIDE 103 mmol/L (98-107); CREATININE 0.97 mg/dl (0.60-1.20); GLUCOSE 139 mg/dl (70-99); POTASSIUM 3.5 mmol/L (3.5-5.1); SODIUM 141 mmol/L (136-145)
[2016-06-05 16:12] LABS: ALB/GLOB RATIO 0.8 (0.9-2); ALKALINE PHOSPHATASE 120 U/L (45-117); C-REACTIVE PROTEIN 0.91 mg/dl (0-0.29)
== END | disposition home or self-care (01) ==
LOC: C.LABSPEC 15:06
PROVIDERS: ATTEND Internal Medicine
DX: Z79.2 Long term (current) use of antibiotics (principal)

== ENCOUNTER → 2016-06-09 | Outpatient (CLI) | payer BC ==
[2016-06-09 15:50] LABS: URINE APPEARANCE TURBID (CLEAR); URINE BILIRUBIN NEG (NEG); URINE COLOR YELLOW; URINE EPITHELIAL CELL AUTO 20-30 /lpf (0-5); URINE NITRITE NEG (NEG); URINE PH 5.5 (4.5-7.5); URINE SPECIFIC GRAVITY 1.011 (1.000-1.030); UROBILINOGEN NEG (NEG)
[2016-06-09 15:51] LABS: MANUAL MICROSCOPIC REQUIRED? NO; REVIEW REQ? NO
== END | disposition home or self-care (01) ==
LOC: C.LAB1850 14:35
PROVIDERS: ATTEND Internal Medicine Infectious Disease
DX: N39.0 Urinary tract infection, site not specified (principal)

== ENCOUNTER → 2016-06-12 | Outpatient (CLI) | payer BC ==
[2016-06-12 12:00] LABS: HEMATOCRIT 39.8 % (37-47); MEAN CELL VOLUME 92.8 fL (80-100); MEAN CORPUSCULAR HEMOGLOBIN 30.3 pg (25-34); MEAN CORPUSCULAR HGB CONC 32.7 g/dl (32-36); MEAN PLATELET VOLUME 9.8 fL (7.4-10.4); PLATELET COUNT 380 K/uL (130-400); RED BLOOD COUNT 4.29 M/uL (4.2-5.4); WHITE BLOOD COUNT 9.97 K/uL (4.8-10.8)
[2016-06-12 12:08] LABS: ALT/SGPT 34 U/L (12-78); BLOOD UREA NITROGEN 21 mg/dl (7-18); BUN/CREATININE RATIO 24.1 (10-20); C-REACTIVE PROTEIN 0.56 mg/dl (0-0.29); CALCIUM 9.5 mg/dl (8.5-10.1); CARBON DIOXIDE 26 mmol/L (21-32); CHLORIDE 102 mmol/L (98-107); CREATININE 0.87 mg/dl (0.60-1.20); GLUCOSE 141 mg/dl (70-99); POTASSIUM 3.6 mmol/L (3.5-5.1); SODIUM 140 mmol/L (136-145)
[2016-06-12 12:11] LABS: ALB/GLOB RATIO 0.8 (0.9-2); ALKALINE PHOSPHATASE 113 U/L (45-117); AST/SGOT 18 U/L (15-37)
== END | disposition home or self-care (01) ==
LOC: C.LABSPEC 11:26
PROVIDERS: ATTEND Internal Medicine
DX: Z79.2 Long term (current) use of antibiotics (principal); Z51.81 Encounter for therapeutic drug level monitoring

== ENCOUNTER → 2016-06-26 | Outpatient (CLI) | payer BC ==
[~2016-06-26] MED LIST changes: +ASPI81TA28 PO; +CYAN10005 PO; +GABA1CAP5 PO; +METF500T5 PO; +METH-1305 PO; -METH1TAB5 PO; +NEOMOIN3 TD; +NF1420 PO; +OXYC-57 PO; +PRED-301 PO; +SENNTAB23 PO
--- NOTE | 2016-06-27 12:18 | MAMMOGRAPHY REPORT ---
BILATERAL DIGITAL SCREENING MAMMOGRAM WITH CAD: 06/26/2016 CLINICAL HISTORY: Routine screening. Patient has no complaints. TECHNIQUE: Bilateral CC and MLO views were obtained. Current study was also evaluated with a Comput er Aided Detection (CAD) system. COMPARISON: Comparison is made to exams dated: 06/23/2015 mammogram, 02/26/2014 mammogram, 02/25/2013 mammogram, 01/18/2012 mammogram, 01/03/2011 mammogram, and 12/31/2009 mammogram - [facility]. BREAST COMPOSITION: There are scattered areas of fibroglandular density in both breasts. FINDINGS: There is a stable metallic biopsy marker in the upper outer quadrant of the left breast. There are mild vascular calcifications in the breasts. Scattered stable benign-appearing microcalc ifications bilaterally. No new suspicious mass, architectural distortion or cluster of microcalcifi cations is seen. IMPRESSION: ACR BI-RADS CATEGORY 1: NEGATIVE There is no mammographic evidence of malignancy. A 1 year screening mammogram is recommended. The p atient will receive written notification of the results. Approximately 10% of breast cancers are not detected with mammography. A negative mammographic repor t should not delay biopsy if a clinically suggestive mass is present. Maya Erwin M.D. ay/:06/26/2016 16:55:46 Outreach Manager: Jennifer NATHAN)(Ad), [facility] letter sent: Normal 1/2 BI-RADS Code: ACR BI-RADS Category 1: Negative
== END | disposition home or self-care (01) ==
LOC: C.MAMM 10:09
PROVIDERS: ATTEND Obstetrics & Gynecology
DX: Z12.31 Encounter for screening mammogram for malignant neoplasm of breast (principal)

== ENCOUNTER → 2016-07-14 | Outpatient (CLI) | payer BC ==
[2016-07-14 12:37] LABS: HEMATOCRIT 40.4 % (37-47)
[2016-07-14 12:47] LABS: ESTIMATED AVERAGE GLUCOSE 137 mg/dl; HA1C FLAG Normal (Normal)
[2016-07-14 12:50] LABS: ALT/SGPT 28 U/L (12-78); BLOOD UREA NITROGEN 16 mg/dl (7-18); BUN/CREATININE RATIO 19.3 (10-20); CARBON DIOXIDE 28 mmol/L (21-32); CHLORIDE 102 mmol/L (98-107); CHOLESTEROL 147 mg/dl (0-200); CREATININE 0.82 mg/dl (0.60-1.20); GLUCOSE 115 mg/dl (70-99); POTASSIUM 3.8 mmol/L (3.5-5.1); SODIUM 140 mmol/L (136-145)
[2016-07-14 13:01] LABS: ALB/GLOB RATIO 0.8 (0.9-2); ALKALINE PHOSPHATASE 114 U/L (45-117); AST/SGOT 12 U/L (15-37); CHOLESTEROL/HDL RATIO 4.5; HDL CHOLESTEROL 33 mg/dl; LDL CHOLESTEROL CALCULATED 74 mg/dl; THYROID STIMULATING HORMONE 0.277 uIu/ml (0.300-4.500); TRIGLYCERIDES 201 mg/dl (0-150); VERY LOW DENSITY LIPOPROT CALC 40 mg/dl
[2016-07-14 13:03] LABS: CALCIUM 9.4 mg/dl (8.5-10.1)
[2016-07-14 13:22] LABS: RATIO 15.9 mcg/mg (0-30.0)
== END | disposition home or self-care (01) ==
LOC: C.LAB1850 09:57
PROVIDERS: ATTEND Internal Medicine Endocrinology, Diabetes & Metabolism
DX: E11.9 Type 2 diabetes mellitus without complications (principal)

== ENCOUNTER → 2016-07-20 | Outpatient (CLI) | payer BC | END | disposition home or self-care (01) | LOC: C.LAB1850 12:29 | PROVIDERS: ATTEND Internal Medicine Endocrinology, Diabetes & Metabolism | DX: R30.0 Dysuria (principal) ==

== ENCOUNTER → 2016-09-20 | Outpatient (CLI) | payer BC ==
[~2016-09-20] MED LIST changes: -METH-1305 PO; +METH1TAB5 PO; +NEOMOIN2 TD; -NEOMOIN3 TD
== END | disposition home or self-care (01) ==
LOC: C.LAB1850 13:10
PROVIDERS: ATTEND Internal Medicine Endocrinology, Diabetes & Metabolism
DX: E03.9 Hypothyroidism, unspecified (principal)

== ENCOUNTER → 2016-10-20 | Outpatient (CLI) | payer BC | END | disposition home or self-care (01) | LOC: C.PAPS 10:38 | PROVIDERS: ATTEND Obstetrics & Gynecology | DX: Z12.4 Encounter for screening for malignant neoplasm of cervix (principal) ==

== ENCOUNTER → 2016-11-20 | Outpatient (CLI) | payer BC | END | disposition home or self-care (01) | LOC: C.LAB1850 15:05 | PROVIDERS: ATTEND Internal Medicine Endocrinology, Diabetes & Metabolism | DX: E03.9 Hypothyroidism, unspecified (principal) ==

== ENCOUNTER → 2016-11-21 | Outpatient (CLI) | payer BC ==
[2016-11-21 14:44] LABS: HEMATOCRIT 37.8 % (37-47)
[2016-11-21 15:16] LABS: CHOLESTEROL/HDL RATIO 4.8
[2016-11-22 08:14] LABS: ESTIMATED AVERAGE GLUCOSE 146 mg/dl; HA1C FLAG Normal (Normal)
--- NOTE | 2016-11-29 13:24 | CODING QUERY MEDICAL NECESSITY ---
CQSUPPORTING DIAGNOSIS NEEDED A supporting diagnosis is required for the test/procedure performed on this patient in order for us to be reimbursed by the patient's insurance. Please provide a supporting diagnosis for the following test/procedure listed below next to the test name along with your signature. *If there is no additional diagnosis for this patient that would support the following test/procedure please document that below next to the test/procedure. Test(s)/Procedure(s) that require a supporting diagnosis: DOS 11/21/16 VITAMIN B12 TEST Provider Signature: Date: Thank you Trudy Merrill Health Information Management Once completed, please kindly fax back to [phone] For questions please call [phone]
== END | disposition home or self-care (01) ==
LOC: C.LAB1850 13:35
PROVIDERS: ATTEND Internal Medicine Endocrinology, Diabetes & Metabolism
DX: E11.628 Type 2 diabetes mellitus with other skin complications (principal)

== ENCOUNTER → 2016-11-28 | Outpatient (CLI) | payer BC ==
[2016-11-28 14:22] LABS: URINE APPEARANCE TURBID (CLEAR); URINE BILIRUBIN NEG (NEG); URINE COLOR YELLOW; URINE NITRITE POS (NEG); URINE PH 5.5 (4.5-7.5); URINE SPECIFIC GRAVITY 1.017 (1.000-1.030); UROBILINOGEN NEG (NEG)
[2016-11-28 14:33] LABS: MANUAL MICROSCOPIC REQUIRED? NO; REVIEW REQ? NO
== END | disposition home or self-care (01) ==
LOC: C.LAB1850 11:51
PROVIDERS: ATTEND Internal Medicine Infectious Disease
DX: N39.0 Urinary tract infection, site not specified (principal)

== ENCOUNTER → 2016-12-25 | Outpatient (CLI) | payer BC | END | disposition home or self-care (01) | LOC: C.RDSM 11:30 | PROVIDERS: ATTEND Physical Medicine & Rehabilitation Sports Medicine | DX: M25.562 Pain in left knee (principal) ==

== ENCOUNTER → 2016-12-28 | Outpatient (CLI) | payer BC | END | disposition home or self-care (01) | LOC: C.CPL 16:04 | PROVIDERS: ATTEND Orthopaedic Surgery Sports Medicine | DX: L97.519 Non-pressure chronic ulcer of other part of right foot with unspecified severity (principal) ==

== ENCOUNTER 2017-01-01 11:44 | Day surgery (SDC) | payer BC ==
[2016-12-29 10:36] VITALS: BMI 31.0
[~2017-01-01] VITALS: Ht 160 cm; Wt 79.5 kg
--- NOTE | 2017-01-01 08:39 | History and Physical ---
History & Physical Date Jan 01, 2017. Chief Complaint right foot pain and bony prominence History of Present Illness The patient is a 71 year old female with complaints of a right foot bony prominence at the plantar aspect of the foot. She has had a midfoot reconstruction with fusions for Charcot arthropathy. When she became weightbearing on the right foot, she noticed a prominence at the plantar aspect of the foot which later started to cause an ulceration at the prominence. She was treated conservatively but failed those measures. She is now being set up for surgical tx. Past Medical/Surgical History Medical Problems: (1) CAD (coronary artery disease) (2) Charcot's arthropathy (3) Diabetic neuropathy associated with type 2 diabetes mellitus (4) DM2 (diabetes mellitus, type 2) (5) DVT prophylaxis (6) Dyslipidemia (7) Fibromyalgia (8) HTN (hypertension) (9) Hypothyroidism (10) Psoriatic arthritis Allergies Coded Allergies: Tetanus Toxoid (Verified Allergy, Mild, LOCALIZED REACTION, MADE HER FEEL SICK, 12/29/16) Minocycline (Verified Adverse Reaction, Mild, HEADACHES, 12/29/16) Amoxicillin (Verified Adverse Reaction, Unknown, "GOT C-DIFF", 12/29/16) Tetracycline (Verified Adverse Reaction, Unknown, HEADACHES, 12/29/16) Home Medications Scheduled Aspirin (Aspirin Ec), 81 MG PO QAM Atorvastatin (Lipitor), 80 MG PO HS Calcium Carbonate-Vitamin D (Calcium 500 + D), 1 CHW PO QPM Cefadroxil (Cefadroxil), 1 GM PO BID Cyanocobalamin (Vitamin B-12), 1,000 MCG PO QAM Gabapentin (Neurontin), 400 MG PO TID Levothyroxine Sodium (Levothyroxine Sodium), 75 MCG PO [id number] Levothyroxine Sodium (Levothyroxine Sodium), 37.5 MG PO WK Metformin Hcl Er (Glucophage Er), 1,000 MG PO BID Metoprolol Succinate (Toprol Xl), 25 MG PO HS Multivitamin (Multivitamin), 1 TAB PO DAILY AT 1200 Neomycin/Polymyx/Bacitr (Neosporin), 1 APPL TD PRN Nitroglycerin (Nitrostat), 0.4 MG UT PRN Paroxetine (Paxil), 20 MG PO HS Prednisone (Prednisone), 5 MG PO QAM Probiotic Product (Probiotic), 1 CAP PO QAM Sennosides-Docusate Sodium (Stool Softener), 2 TAB PO BID Triamcinolone Acetonide (Nasal (Nasacort Allergy 24Hr), 1 SPRAY NA HS Triamterene/Hctz (Dyazide 37.5MG/25MG), 1 TAB PO QAM Valacyclovir (Valtrex), 500 MG PO QAM Physical Examination Skin: warm/dry, no rash, + pertinent finding (Plantar right foot ulceration.) Eyes: normal inspection ENT: normal ENT inspection Head: normocephalic, atraumatic Neck: supple, no adenopathy, trachea midline Respiratory/Chest: lungs clear, normal breath sounds, no respiratory distress Cardiovascular: regular rate, rhythm, no murmur Abdomen / GI: normal bowel sounds, non tender Extremities: + pertinent finding (Right foot: Well healed incisions medial and lateral midfoot. Plantar prominence near the calcaneocuboid joint with a central healing ulceration. No erythema or drainage.) Neurologic/Psych: no motor/sensory deficits, alert, oriented x 3 Diagnosis Right foot exostosis, plantar aspect of the foot Right foot ulceration Loosening hardware--screws within a plate. Plan of Treatment Recommend a right foot exostectomy plantar aspect of the foot, debridement of plantar foot ulceration, and adjustment of hardware--tightening of screws within the right foot. All potential risks, benefits, complications, alternatives, and rehab have been discussed with the patient and she wishes to proceed as indicated. She will be scheduled for the procedure on 01.01.17.
[~2017-01-01 11:44] MED LIST changes: -ASPCH81X PO; +CLINDAMYCIN 600 MG/54 ML D5W IV SCH; -DAPT500I IV; -GABA1CAP4 PO; +LACTATED RINGER'S 1000ML 1,000 ML IV SCH; -METH1TAB5 PO; -OXYC-57 PO; -PRD/1 PO; -SNK PO; -ULT50X PO
[2017-01-01 12:32] LABS: MEAN CELL VOLUME 91.8 fL (80-100); MEAN CORPUSCULAR HEMOGLOBIN 30.4 pg (25-34); MEAN PLATELET VOLUME 9.6 fL (7.4-10.4); PLATELET COUNT 305 K/uL (130-400); RED BLOOD COUNT 4.14 M/uL (4.2-5.4); WHITE BLOOD COUNT 13.88 K/uL (4.8-10.8)
[2017-01-01 12:36] VITALS: BP 147/74; PULSE 89; TEMP 36.4; O2SAT 95; Ht 160 cm; Wt 79.5 kg
[2017-01-01] MEDS ORDERED: MIDAZOLAM HCL 1 MG/ML 2ML VIAL ONE (12:36)
[2017-01-01] MEDS ORDERED: FENTANYL CITRATE INJ 50 MCG/1 ML 2 ML VIAL ONE (12:37)
[2017-01-01 12:43] LABS: MEAN CORPUSCULAR HGB CONC 33.2 g/dl (32-36)
[2017-01-01] MEDS ORDERED: ROPIVACAINE 0.5% 5 MG/ML 30 ML VIAL ONE (13:14)
[2017-01-01 13:23] LABS: BUN/CREATININE RATIO 16.3 (10-20); CALCIUM 9.5 mg/dl (8.5-10.1); CREATININE 0.91 mg/dl (0.60-1.20); POTASSIUM 3.3 mmol/L (3.5-5.1)
[2017-01-01] MEDS ORDERED: METOPROLOL TARTRATE 1 MG/ML VIAL IV STA (13:50)
[2017-01-01] MEDS ORDERED: METOPROLOL TARTRATE 1 MG/ML VIAL ONE (13:53)
[2017-01-01] MEDS ORDERED: BUPIVACAINE 0.5 % 5 MG/1 ML MPF 30ML VIAL ONE (14:15)
[2017-01-01] MEDS ORDERED: LIDOCAINE HCL 1% 20 ML VIAL ONE (14:16)
[2017-01-01] MEDS ORDERED: POTASSIUM CHLR 10 MEQ / WTR 10 MEQ in PREMIXED WATER 100 ML IV SCH (14:30)
[2017-01-01] MEDS ORDERED: PROPOFOL IV EMULSION 10 MG/ML 20 ML VIAL IV ONE ×2 (15:06→15:53)
[2017-01-01] MEDS ORDERED: FENTANYL CITRATE INJ 50 MCG/1 ML 2 ML VIAL IV PRN (15:45)
[2017-01-01] MEDS ORDERED: ATROPINE SULFATE 0.1 MG/ML 5ML SYR IV PRN (15:45)
[2017-01-01] MEDS ORDERED: EpHEDrine SULFATE INJ 50 MG/ML AMP IV PRN (15:45)
[2017-01-01] MEDS ORDERED: ONDANSETRON INJ 2 MG/ML 2 ML VIAL IV PRN (15:45)
[2017-01-01] MEDS ORDERED: LIDOCAINE HCL 2% 2 ML VIAL (20MG/ML) ONE (15:53)
[2017-01-01] MEDS ORDERED: ONDANSETRON INJ 2 MG/ML 2 ML VIAL ONE (15:54)
[2017-01-01] MEDS ORDERED: BACITRACIN 50000 UNIT VIAL IR ONE (16:03)
--- NOTE | 2017-01-01 16:03 | DIAGNOSTIC IMAGING REPORT ---
R FOOT 2 VIEWS CLINICAL HISTORY: RT ADJUSTMENT OF HARDWARE COMPARISON STUDY: Right foot 03/17/2016. FINDINGS: Fluoroscopy time was 17 seconds. 2 fluoroscopic spot images of the right foot. There are 2 cortical plates and screws along the medial and lateral side of the foot. These result in complete tarsal and tarsometatarsal fusion. The hardware appears intact. IMPRESSION: Fluoroscopy provided for a tarsal/tarsometatarsal fusion. Electronically signed by: Scotty Stevenson M.D. 01/01/2017 4:02 PM Dictated Date/Time: 01/01/2017 4:00 PM
[2017-01-01] MEDS ORDERED: OXYC-57 PO (16:12)
--- NOTE | 2017-01-01 16:15 | Discharge Instructions ---
Discharge Instructions Date of Service Jan 01, 2017. Admission Reason for Admission: Right Foot Non-Pressure Chronic Ulcer Discharge Discharge Diagnosis / Problem: Right foot ulceration, right foot exostosis Discharge Goals Goal(s): Decrease discomfort, Improve function Activity Recommendations Activity Limitations: per Instructions/Follow-up section Weightbearing Status: Right non-weightbearing . Instructions / Follow-Up Instructions / Follow-Up ACTIVITY RECOMMENDATIONS: Limitations: No weight bearing to affected limb at all times. SPECIAL CARE INSTRUCTIONS: * Some drainage onto the dressing is normal and is no cause for alarm. * Some swelling is natural especially after walking. * When resting, keep your foot elevated above the level of your heart. * Call [facility] if you notice: -Increased drainage -Fever over 101 degrees F -Severe constant pain BANDAGE: * Leave bandage/cast in place unless otherwise directed. * Keep bandage/cast dry at all times. FOLLOW UP VISIT WITH DR. PASCUAL If appointment is not already scheduled: Please call [facility] after you get home today to schedule a follow-up appointment for [address] Pascual at . Current Hospital Diet Patient's current hospital diet: Discharge Diet Recommended Diet: Regular Diet Pending Studies Studies pending at discharge: no Laboratory Results Hemoglobin A1c Test 11/21/16 13:41 Range/Units Estimated Average Glucose 146 mg/dl Hemoglobin A1c 6.7 H 4.5-5.6 % Lipid Panel Test 11/21/16 13:41 Range/Units Triglycerides Level 293 H 0-150 mg/dl Cholesterol Level 140 0-200 mg/dl HDL Cholesterol 29 mg/dl Cholesterol/HDL Ratio 4.8 LDL Cholesterol, Calculated 52 mg/dl Medical Emergencies . Who to Call and When: Medical Emergencies: If at any time you feel your situation is an emergency, please call 911 immediately. . Non-Emergent Contact Non-Emergency issues call your: Surgeon Call Non-Emergent contact if: temperature is above 101, your pain is not controlled, your pain is worsening . "Provider Documentation" section prepared by Vu Dumont. . VTE Core Measure Inpt VTE Proph given/why not?: Treatment not indicated
--- NOTE | 2017-01-01 16:21 | [facility] Post Operative Brief Note ---
Immediate Operative Summary Operative Date Jan 01, 2017. Pre-Operative Diagnosis Right foot exostosis plantar calcaneus Exostosis Cuboid, Exostosis 4th Metatarsal Right foot ulceration Loosening hardware--screws medial and lateral foot. Post-Operative Diagnosis Right foot exostosis plantar calcaneus Exostosis Cuboid, Exostosis 4th Metatarsal Right foot ulceration Loosening hardware--screws medial and lateral foot. Procedure(s) Performed Right foot exostectomy Calcaneus Right foot exostectomy Cuboid Right foot exostectomy 4th metatarsal Right foot Adjustment hardware lateral foot Right foot Adjustment hardware medial foot Surgeon Dr Nash Risk Manager Surgeon(s) Lashell CONLEY Estimated Blood Loss 10 cc Findings See dict Specimens None Drains None Anesthesia GLMA w/ ankle block Complication(s) None Disposition Recovery Room / PACU
--- NOTE | 2017-01-01 16:54 | Anesthesiology Progress Note ---
Anesthesia Post Op Note Date & Time Jan 01, 2017 at 16:54 Vital Signs Pain Intensity: 1 Vital Signs Past 12 Hours Date Time Temp Pulse Resp B/P (MAP) Pulse Ox O2 Delivery O2 Flow Rate FiO2 01/01/17 16:40 36.4 75 16 116/66 94 Room Air 01/01/17 16:25 36.4 74 16 120/67 95 Room Air 01/01/17 16:15 78 16 105/59 97 Oxymask 7 01/01/17 16:06 36.3 80 16 103/59 97 Oxymask 7 01/01/17 13:56 115 137/73 01/01/17 12:36 36.4 89 20 147/74 (98) 95 Room Air Notes Mental Status: alert / awake / arousable, participated in evaluation Pt Amnestic to Procedure: Yes Nausea / Vomiting: adequately controlled Pain: adequately controlled Airway Patency, RR, SpO2: stable & adequate BP & HR: stable & adequate Hydration State: stable & adequate Anesthetic Complications: no major complications apparent
[2017-01-01 16:55] VITALS: BP 134/76; PULSE 73; TEMP 36.6; O2SAT 93
--- NOTE | 2017-01-01 17:04 | Progress Note ---
Progress Note Date of Service Jan 01, 2017. Progress Note Ms. Andrews was scheduled for elective right foot surgery with Dr. Nash today. On arriving in [facility] the patient was noted to be in sinus rhythm, but during her stay in [facility], she was noted to be going in and out of afib with RVR (rate 130s to 150s). The patient remained hemodynamically stable throughout and was able to report feeling palpitations whenever she went into afib. She denied any chest pain or SOB. She reported a past history of Afib in 2014 when she had cardiac bypass surgery, but no documented occurrences of afib since then. She did report having similar palpitations on occasion at home that always resolved spontaneously. She was given 5 mg of metoprolol in [facility] and hydrated with 1L of IVF. In addition, her K was noted to be 3.3 on preop labs, so she was given 20 mEQ of potassium. After treatment, the patient remained in sinus rhythm. I spoke with the patient's insurance underwriter sales Dr. Oropeza at 1415 and he agreed with our plan to proceed with surgery and discharge home if she had no additional complications. The patient remained hemodynamically stable throughout the operative case and in PACU. She did not have any additional episodes of afib. The patient was discharged home with instructions to call Dr. Oropeza's office tomorrow AM to schedule a follow-up appointment for afib. Judy Burch MD, PhD Anesthesiologist
[2017-01-01 17:25] VITALS: BP 120/58; PULSE 77; TEMP 36.5; O2SAT 95
--- NOTE | 2017-01-01 18:47 | OPERATIVE REPORT ---
DATE OF OPERATION: 01/01/2017 PREOPERATIVE DIAGNOSES: 1. Right foot plantar exostoses of the calcaneus, exostoses of the cuboid, and exostoses of the fourth metatarsal base. 2. Painful hardware, medial and lateral foot. 3. Ulceration of the plantar foot. POSTOPERATIVE DIAGNOSES: Same. PROCEDURES: 1. Right foot exostectomy of the plantar calcaneus. 2. Exostectomy of the plantar cuboid. 3. Exostectomy of the fourth metatarsal. 4. Adjustment loosened hardware on the lateral foot. 5. Adjustments loosened hardware on the medial foot. 6. Debridement plantar ulcer of the foot. SURGEON: Dr. Nash. TECHNICAL SPECIALIST CYTOGENETICS: Vu Dumont PA-C who was present for patient positioning, sterile prep and drape, management of retractors and instruments. He was present through the critical portions of the case including wound closure, application of sterile dressing and transport of the patient to recovery. ANESTHESIA: General LMA with ankle block. SPECIMENS: None. DRAINS: None. COMPLICATIONS: None. BLOOD LOSS: 10 mL. PERTINENT HISTORY OF PRESENT ILLNESS: This is a 71-year-old female with severe Charcot arthropathy of the right foot. She has severe neuropathy with significant stocking distribution of a limited sensation in the feet. She had a medial and lateral column foot fusions and reconstruction and had done well with that; however, developed some loosening of some of the hardware and she also developed some large plantar exostosis particularly on the plantar lateral aspect of the foot comprising several bone as noted above. We attempted conservative management including shoewear modification, activity modification, shoe inserts, and modification of weightbearing while the patient continued to have prominence of the foot exostoses which then eventually became an ulcer. The patient was then scheduled for surgery as indicated. All potential risks, benefits, complications, alternatives, rehab, potential for incomplete relief of symptoms, need for further surgery, DVT, PE, , persistent pain, swelling, scarring, weakness, neurovascular injury, wound complications, hardware failure were discussed with the patient. The patient decided to proceed with the procedure as indicated. DESCRIPTION OF PROCEDURE: The patient was taken to the operative suite, placed supine on the operating room table. I reviewed the consent and identification of proper operative site, the patient was anesthetized, LMA was placed. Tourniquet was placed high on the right thigh over cast padding. Right lower extremity was then sterilely prepped with Betadine and an ankle block was then performed with 30 mL of 0.5% Marcaine plain and 10 mL of 1% lidocaine plain. Next, right lower extremity was then sterilely prepped and draped in usual fashion, elevated, and exsanguinated with an Esmarch bandage and tourniquet inflated to 300 mmHg. Next, a 15 blade scalpel was used to make an incision over the lateral distal aspect of the foot at the site of loosening loosened hardware. The screw heads were identified and the 2 screws noted in the distal aspect of the plate were then localized with fluoroscopic assistance and then tightened until stable. This wound was irrigated with sterile normal saline and then closed using 4-0 nylon. Next, a 15 blade scalpel was used to make an incision along the medial aspect of the foot proximally at the site of a prominent loosened hardware. The incision was then deepened through the subcutaneous tissue and the screw head was then identified. The screw was then engaged and then tightened into the plate construct without difficulty. Next, the wound was copiously irrigated with sterile saline and then the incision was closed using 4-0 nylon sutures. Next, the plantar ulcer on the central plantar aspect of the foot was then identified. A 15 blade scalpel was then used to debride out the ulceration of the skin to subcutaneous tissue and fascia. Next hypertrophic rind of tissue surrounding the circumferential ulcerations surrounding the bony prominences then resected. Next, the 15 blade scalpel was then used to make an incision centrally over the bony prominence. The incision was deepened through subcutaneous tissue and meticulous hemostasis was achieved with electrocautery. Full thickness skin flaps were developed. The plantar fascia was then incised along with the skin incision. The periosteum of the plantar bones was then incised with 15 blade scalpel and elevated both medially and laterally. The bony prominence of the calcaneus was then resected with osteotome and mallet and was then followed by resection of the bony prominence of the cuboid with an osteotome and mallet. Next, the base of the fourth metatarsal was also noted to be significantly prominent on the plantar aspect of the foot and this resected with an osteotome and mallet. Rongeur was then used to smooth and contour the remainder of the plantar foot bones and the wound was copiously irrigated with sterile normal saline until clear. This was then followed by closure of the full-thickness skin on the plantar aspect of the right foot with interrupted 2-0 nylon sutures. Next, a sterile compressive dressing and bulky Vicente Garrido plaster splint was applied overwrapped with an Acosta wrap and foot was held in neutral dorsiflexion. Tourniquet was released. The patient was awakened and taken to recovery in stable condition. I attest to the content of the Intraoperative Record and any orders documented therein. Any exceptions are noted below. MATHEWD
== END 2017-01-01 17:45 | disposition home or self-care (01) ==
LOC: C.ACU 11:44
PROVIDERS: ATTEND Orthopaedic Surgery Sports Medicine
DX: M85.871 Other specified disorders of bone density and structure, right ankle and foot (principal); L97.419 Non-pressure chronic ulcer of right heel and midfoot with unspecified severity; T84.428A Displacement of other internal orthopedic devices, implants and grafts, initial encounter; Y79.2 Prosthetic and other implants, materials and accessory orthopedic devices associated with adverse incidents; I25.10 Atherosclerotic heart disease of native coronary artery without angina pectoris; E11.42 Type 2 diabetes mellitus with diabetic polyneuropathy; E78.5 Hyperlipidemia, unspecified; I10 Essential (primary) hypertension; E03.9 Hypothyroidism, unspecified; L40.50 Arthropathic psoriasis, unspecified; Z79.82 Long term (current) use of aspirin; Z79.84 Long term (current) use of oral hypoglycemic drugs; I25.2 Old myocardial infarction; E78.00 Pure hypercholesterolemia, unspecified; M19.90 Unspecified osteoarthritis, unspecified site; E66.9 Obesity, unspecified; Z96.652 Presence of left artificial knee joint; Z98.41 Cataract extraction status, right eye; Z98.42 Cataract extraction status, left eye; Z92.241 Personal history of systemic steroid therapy

== ENCOUNTER → 2017-01-09 | Outpatient (CLI) | payer BC ==
[~2017-01-09] MED LIST changes: +BACITRACIN 50000 UNIT VIAL ONE; -CLINDAMYCIN 600 MG/54 ML D5W IV SCH; -LACTATED RINGER'S 1000ML 1,000 ML IV SCH; +OXYC-57 PO
--- NOTE | 2017-01-09 13:03 | DIAGNOSTIC IMAGING REPORT ---
MRI THE RIGHT SHOULDER NO CONTRAST CLINICAL HISTORY: RIGHT SHOULDER PAIN COMPARISON STUDY: 06/24/2015 FINDINGS: Imaging was performed in the axial, sagittal, and coronal planes. There are no areas of marrow edema to indicate occult fracture or bone bruise. There is a longitudinal split tear involving the bicipital tendon. There are moderate arthritic changes within the chromic clavicular joint. There is supraspinatus tendinopathy. No full-thickness tear is visualized. There is no tendinous retraction. There is degenerative irregularity anterior glenoid labrum. IMPRESSION: 1. Supraspinatus tendinopathy. The tendon is/peritendinous calcifications described on the prior radiograph are difficult to visualize MRI scanning 2. No evidence of full-thickness rotator cuff tear 3. Degenerative changes in the AC joint 4. Longitudinal split tear involving the bicipital tendon Electronically signed by: Wilfredo Bah M.D. 01/09/2017 1:02 PM Dictated Date/Time: 01/09/2017 12:57 PM
== END | disposition home or self-care (01) ==
LOC: C.MRI 10:40
PROVIDERS: ATTEND Physical Medicine & Rehabilitation Sports Medicine
DX: M75.31 Calcific tendinitis of right shoulder (principal)

== ENCOUNTER → 2017-01-17 | Outpatient (CLI) | payer BC ==
[~2017-01-17] MED LIST changes: -BACITRACIN 50000 UNIT VIAL ONE; -NEOMOIN2 TD; +NEOMOIN3 TD
[2017-01-17 13:39] LABS: URINE APPEARANCE TURBID (CLEAR); URINE BILIRUBIN NEG (NEG); URINE COLOR YELLOW; URINE EPITHELIAL CELL AUTO >30 /lpf (0-5); URINE NITRITE POS (NEG); URINE PH 6.5 (4.5-7.5); URINE SPECIFIC GRAVITY 1.011 (1.000-1.030); UROBILINOGEN NEG (NEG)
[2017-01-17 13:43] LABS: MANUAL MICROSCOPIC REQUIRED? NO; REVIEW REQ? YES
== END | disposition home or self-care (01) ==
LOC: C.LAB1850 10:25
PROVIDERS: ATTEND Internal Medicine Infectious Disease
DX: N39.0 Urinary tract infection, site not specified (principal)

== ENCOUNTER → 2017-02-02 | Outpatient (CLI) | payer BC | END | disposition home or self-care (01) | LOC: C.LAB1850 11:35 | PROVIDERS: ATTEND Internal Medicine Rheumatology | DX: L40.50 Arthropathic psoriasis, unspecified (principal); Z79.52 Long term (current) use of systemic steroids; M25.439 Effusion, unspecified wrist ==

== ENCOUNTER → 2017-06-01 | Outpatient (CLI) | payer BC ==
[~2017-06-01] MED LIST changes: +GABA-1220 PO; -GABA1CAP5 PO; -METO25TA3 PO; +METO25TA4 PO
[2017-06-01 12:50] LABS: HEMOGLOBIN A1C 6.7 % (4.5-5.6)
== END | disposition home or self-care (01) ==
LOC: C.LAB1850 10:05
PROVIDERS: ATTEND Internal Medicine Endocrinology, Diabetes & Metabolism
DX: E78.5 Hyperlipidemia, unspecified (principal); E11.9 Type 2 diabetes mellitus without complications

== ENCOUNTER → 2017-06-05 | Outpatient (CLI) | payer BC ==
[2017-06-05 15:07] LABS: BLOOD UREA NITROGEN 16 mg/dl (7-18); CALCIUM 9.2 mg/dl (8.5-10.1); CARBON DIOXIDE 28 mmol/L (21-32); CREATININE 0.81 mg/dl (0.60-1.20); GLUCOSE 112 mg/dl (70-99); POTASSIUM 3.6 mmol/L (3.5-5.1); SODIUM 137 mmol/L (136-145)
== END | disposition home or self-care (01) ==
LOC: C.LAB1850 12:37
PROVIDERS: ATTEND Internal Medicine Endocrinology, Diabetes & Metabolism
DX: I48.91 Unspecified atrial fibrillation (principal)

== ENCOUNTER → 2017-07-04 | Outpatient (CLI) | payer BC ==
[~2017-07-04] MED LIST changes: +OPTIRAY 320 IV PRN; +SITA100T3 PO
--- NOTE | 2017-07-04 13:08 | DIAGNOSTIC IMAGING REPORT ---
LOWER EXTREMITY WITH CLINICAL HISTORY: 72 years-old Female presenting with LEFT FOOT FOR NON HEALING WOUND. TECHNIQUE: Multidetector CT of the left foot was performed after the administration of intravenous contrast. IV contrast: 119 mL of Optiray 320. A dose lowering technique was used consistent with the principles of ALARA (as low as reasonably achievable). 3-D volumetric and/or maximum intensity projection (MIP) images were subsequently reconstructed for review. COMPARISON: None. CT DOSE (mGy.cm): The estimated cumulative dose is 187.73. FINDINGS: Pediatric Lpn topogram: Unremarkable. Cortical compression plate and screw fixation of the distal fibular metadiaphysis. No hardware complication. Suggestion of an old healed obliquely oriented Kramer B pattern fracture of the fibula. Two old screw tracks through the medial malleolus noted. Ankle mortise intact. No acute fracture. Osteopenia suspected. Nonspecific subcutaneous edema and skin thickening of the heel and proximal plantar aspect of the foot. No subjacent osseous abnormality apart from a prominent enthesophyte at the insertion of the Achilles tendon. Additional focal skin thickening with irregularity of the cutis consistent with ulceration at the medial and plantar aspect of the forefoot at the level of the head of the first metatarsal. The bipartite medial sesamoid is immediately subjacent to this region, but demonstrates no periosteal reaction or osteolysis. Mild degenerative changes of the first metatarsophalangeal joint. The first MTP joint does not demonstrate abnormal fluid or enhancement of the synovium. Diffuse fatty atrophy of the musculature in both the flexor and extensor compartments. No rim-enhancing fluid collection to suggest abscess. IMPRESSION: 1. Focal ulcer at the medial and plantar aspect of the forefoot at the level of the first MTP joint. No evidence of associated osteomyelitis. 2. Nonspecific subcutaneous edema and skin thickening at the heel and proximal plantar aspect of the foot. This could represent cellulitis in the appropriate clinical setting. Again, no subjacent osseous abnormality to suggest osteomyelitis. 3. Internal fixation of the distal fibular metadiaphysis without hardware complication. Electronically signed by: Leodan Downing M.D. 07/04/2017 1:07 PM Dictated Date/Time: 07/04/2017 12:59 PM
== END | disposition home or self-care (01) ==
LOC: C.CTS 12:14
PROVIDERS: ATTEND Physician Assistant
DX: L97.529 Non-pressure chronic ulcer of other part of left foot with unspecified severity (principal)

== ENCOUNTER → 2017-07-06 | Outpatient (CLI) | payer BC ==
[~2017-07-06] MED LIST changes: -OPTIRAY 320 IV PRN; -OXYC-57 PO
--- NOTE | 2017-07-09 07:45 | MAMMOGRAPHY REPORT ---
BILATERAL DIGITAL SCREENING MAMMOGRAM TOMOSYNTHESIS WITH CAD: 07/06/2017 CLINICAL HISTORY: Routine screening. Patient has no complaints. TECHNIQUE: Breast tomosynthesis in addition to standard 2D mammography was performed. Current study was also evaluated with a Computer Aided Detection (CAD) system. COMPARISON: Comparison is made to exams dated: 06/26/2016 mammogram, 06/23/2015 mammogram, 02/26/2014 ma mmogram, 02/25/2013 mammogram, 01/18/2012 mammogram, and 01/03/2011 mammogram - [facility]. BREAST COMPOSITION: There are scattered areas of fibroglandular density in both breasts. FINDINGS: No suspicious masses, calcifications, or areas of architectural distortion are noted in ei ther breast. There has been no significant interval change compared to prior exams. Bilateral benign -appearing calcifications are not significantly changed. A biopsy clip is again noted within the lef t upper outer quadrant. Left breast nodularity is stable. IMPRESSION: ACR BI-RADS CATEGORY 2: BENIGN There is no mammographic evidence of malignancy. A 1 year screening mammogram is recommended. The pa tient will receive written notification of the results. Approximately 10% of breast cancers are not detected with mammography. A negative mammographic report should not delay biopsy if a clinically suggestive mass is present. Priti Rasheed M.D. /:07/06/2017 14:01:39 Appliance Fixer: Humera Camacho RT(R)(M), [facility] letter sent: Normal 1/2 BI-RADS Code: ACR BI-RADS Category 2: Benign
== END | disposition home or self-care (01) ==
LOC: C.MAMM 10:41
PROVIDERS: ATTEND Obstetrics & Gynecology
DX: Z12.31 Encounter for screening mammogram for malignant neoplasm of breast (principal)

== ENCOUNTER → 2017-07-19 | Outpatient (CLI) | payer BC ==
--- NOTE | 2017-07-19 10:23 | DIAGNOSTIC IMAGING REPORT ---
R FOOT 2 VIEWS CLINICAL HISTORY: Diabetic neuropathy COMPARISON: January 01, 2017 DISCUSSION: There are extensive postsurgical changes of a midfoot fusion. Medial and lateral metallic plates with multiple screws are visualized. There are extensive neuropathic changes within the midfoot with bony fragmentation. There is inversion of the plantar arch. There are erosive changes involving the fifth metatarsal at the level of the anterior aspect of the lateral metallic plate. IMPRESSION: Advanced neuropathic changes of the midfoot. There is inversion of the plantar arch. There are postsurgical changes of a midfoot fusion. Erosive changes involving the fifth metatarsal at the level of the anterior aspect of the lateral metallic plate suggest hardware loosening at this level Electronically signed by: Wilfredo Bah M.D. 07/19/2017 10:21 AM Dictated Date/Time: 07/19/2017 10:16 AM
--- NOTE | 2017-07-19 10:24 | DIAGNOSTIC IMAGING REPORT ---
L FOOT 2 VIEWS CLINICAL HISTORY: WEIGHT BEARING FOOT NEUROPATHY. DIABETES COMPARISON: None. DISCUSSION: There are postsurgical changes involving the distal fibula. There is a insertional spur. There is an old fracture involving the proximal phalanx the fifth toe. No acute fractures are evident. The plantar arch appears preserved. IMPRESSION: 1. No acute fractures 2. Old fracture deformity involving the occipital falx the fifth toe 3. The plantar arch appears preserved Electronically signed by: Wilfredo Bah M.D. 07/19/2017 10:23 AM Dictated Date/Time: 07/19/2017 10:22 AM
== END | disposition home or self-care (01) ==
LOC: C.RAD 09:38
PROVIDERS: ATTEND Internal Medicine Endocrinology, Diabetes & Metabolism
DX: E11.40 Type 2 diabetes mellitus with diabetic neuropathy, unspecified (principal); M14.679 Charcot's joint, unspecified ankle and foot

== ENCOUNTER → 2017-07-30 | Day surgery (SDC) | payer BC ==
[~2017-07-30] VITALS: Ht 160 cm; Wt 77.0 kg
[~2017-07-30] MED LIST changes: +ALLO100T PO; +CIPR1TAB11 PO; +DALBAVANCIN IV 1,500 MG in DEXTROSE 5% 250ML 250 ML IV SCH; +POTA99TA; +RIVA1TAB4 PO
[2017-07-30 14:36] VITALS: BP 120/71; PULSE 73; TEMP 37; O2SAT 93; Ht 160 cm; Wt 77.0 kg
[2017-07-30 15:40] VITALS: BP 124/72; PULSE 68; TEMP 36.7; O2SAT 97
--- NOTE | 2017-08-07 08:23 | EDITING REQUIRED CODING QUERY ---
TREATMENT RENDERED WITHOUT A DIAGNOSIS To promote full compliance with coding requirements relating to patient care, physician participation is requested in all cases of carbon blocks press operator uncertainty. Please assist us with the question(s) below: Coding Question: The patient is receiving IV DALVANCE, as noted in the ORDER HISTORY of the record. Please document the diagnosis that is being addressed by the medication/treatment. Provider Response: Left ankle cellulitis Thank you Laura Gomez
== END | disposition home or self-care (01) ==
LOC: C.MTU 13:58
PROVIDERS: ATTEND Internal Medicine Infectious Disease
DX: L03.116 Cellulitis of left lower limb (principal)

== ENCOUNTER → 2017-07-30 | Outpatient (CLI) | payer BC ==
[~2017-07-30] MED LIST changes: -CIPR1TAB11 PO; -DALBAVANCIN IV 1,500 MG in DEXTROSE 5% 250ML 250 ML IV SCH
== END | disposition home or self-care (01) ==
LOC: C.LAB1850 11:23
PROVIDERS: ATTEND Internal Medicine Pulmonary Disease
DX: R14.0 Abdominal distension (gaseous) (principal); N39.0 Urinary tract infection, site not specified

== ENCOUNTER → 2017-10-10 | Outpatient (CLI) | payer BC ==
[~2017-10-10] MED LIST changes: +PRLSR20 PO
== END | disposition home or self-care (01) ==
LOC: C.LAB1850 14:42
PROVIDERS: ATTEND Physician Assistant Medical
DX: N39.0 Urinary tract infection, site not specified (principal)

== ENCOUNTER → 2017-10-17 | Outpatient (CLI) | payer BC ==
[2017-10-17 13:25] LABS: BASO % 0.6 %; BASO ABS # 0.06 K/uL (0-0.2); EOS % 0.8 %; EOS ABS # 0.09 K/uL (0-0.5); HEMATOCRIT 35.6 % (37-47); HEMOGLOBIN 11.1 g/dL (12.0-16.0); IG# 0.08 K/uL (0.00-0.02); LYMPH % 19.9 %; LYMPH ABS # 2.17 K/uL (1.2-3.4); MEAN CELL VOLUME 88.1 fL (80-100); MEAN CORPUSCULAR HEMOGLOBIN 27.5 pg (25-34); MEAN CORPUSCULAR HGB CONC 31.2 g/dl (32-36); MEAN PLATELET VOLUME 9.8 fL (7.4-10.4); MONO % 6.4 %; NEUT % 71.6 %; NEUT ABS # 7.78 K/uL (1.4-6.5); PLATELET COUNT 412 K/uL (130-400); RED CELL DISTRIBUTION WIDTH CV 15.8 % (11.5-14.5); RED CELL DISTRIBUTION WIDTH SD 51.2 fL (36.4-46.3); WHITE BLOOD COUNT 10.88 K/uL (4.8-10.8)
[2017-10-17 14:24] LABS: ALBUMIN 3.3 gm/dl (3.4-5.0); ALKALINE PHOSPHATASE 126 U/L (45-117); ALT/SGPT 29 U/L (12-78); AST/SGOT 18 U/L (15-37); BLOOD UREA NITROGEN 17 mg/dl (7-18); CALCIUM 9.2 mg/dl (8.5-10.1); CARBON DIOXIDE 25 mmol/L (21-32); CREATININE 1.04 mg/dl (0.60-1.20); GLUCOSE 240 mg/dl (70-99); POTASSIUM 3.7 mmol/L (3.5-5.1); SODIUM 136 mmol/L (136-145); TOTAL PROTEIN 7.5 gm/dl (6.4-8.2)
== END | disposition home or self-care (01) ==
LOC: C.LAB1850 12:15
PROVIDERS: ATTEND Orthopaedic Surgery Sports Medicine
DX: M14.671 Charcot's joint, right ankle and foot (principal)

== ENCOUNTER 2020-02-15 11:37 | Observation (INO) ==
--- NOTE | 2020-02-15 12:02 | Emergency Department Note ---
Impression & Plan BRBPR (bright red blood per rectum) ED Provider Note Provider: Jayme Thacker MD DATE OF SERVICE:02/15/2020 CHIEF COMPLAINT: Rectal bleeding HISTORY OF PRESENT ILLNESS: Patient is a 74-year-old female presenting today stating that since 630a this morning she has had bleeding and clots from her rectum. Patient states she was recently seen in the surgery office on February 01 of this month and had an internal hemorrhoid band placed in the office. Patient is significantly on anticoagulation with Xarelto and aspirin due to history of A. fib and CABG. patient states a little left upper quadrant tenderness. Patient states he felt a little bit lightheaded earlier but then had breakfast this went away. She is unsure if this was related to bleeding or just from not having breakfast and her diabetic status. Patient states she does not currently have any chest pain shortness of breath or lightheadedness. Denies any nausea or vomiting today. States he was fine last night. Patient is not noticed any banding pass in her stool. States regular stools recently. States she has had some continuous bright red blood per rectum since the initial this morning with clots the size of almost golf balls. Came here for further evaluation. Patient has had multiple blood transfusions in the past for anemia. REVIEW OF SYSTEMS: A total of 10 review of systems was obtained and negative exc ept as stated above in the HPI. PAST MEDICAL HISTORY: As noted above MEDICATIONS: Reviewed home medicine list including anticoagulation with Xarelto and aspirin SOCIAL HISTORY: Non-smoker, lives at home with PHYSICAL EXAM: GENERAL: alert and oriented in no acute distress on stretcher Head: normocephalic and atraumatic EYES: No injection, discharge or icterus. NECK: Trachea midline. LUNGS: Airway patent. No retractions. Breath sounds clear HEART: Regular rate and rhythm. No chest wall tenderness ABDOMEN: Soft mild left lower quadrant pain without guarding or rebound. No masses Rectal: With nurse hollow ware maker in patient's consent, some tissue and pad removed in the external rectal area shows some dried red blood around the anus and small trickle of blood from the anus. Digital rectal exam tolerated well with what feels like a rubber band noted around the 3 o'clock position. Patient with minimal discomfort here. Patient tolerated well. SKIN: Acyanotic, warm, dry, without rashes EXTREMITIES: Without swelling, tenderness or deformity NEUROLOGICAL: No focal deficits. No aphasia. No facial droop or slurred speech. Ambulatory. EK bpm normal sinus rhythm without PVC or PAC. There is overlying artifact from bladder stimulator. Normal intervals. No acute ST segment elevation or depression appreciated. CONTINUOUS CARDIAC MONITORING: was ordered and showed a heart rate of 90 bpm in normal sinus rhythm Patient's laboratory studies and imaging reviewed. Differential includes Diverticulosis, AVM, coagulopathy, colitis, inflammatory bowel disease, malignancy, Katerin-Cabrales tear, esophagitis, peptic ulcer disease, variceal bleed, gastritis, epistaxis, fissure, hemorrhoids, as well as other pathologies. IMPRESSION/MEDICAL DECISION MAKING: Patient presents with bright red blood per rectum. Present on exam. Slow trickle noted. On rectal exam to appreciated approximately the 3:00 region which feels like a rubber band question if this represents the internal hemorrhoid that was banded. Blood per rectum was bright red without melena. Patient denies upper abdominal pain is no significant upper or right-sided abdominal tenderness. Lower suspicion for upper GI bleed but given a dose of Protonix in any event. Type and screen was sent. Basic labs ordered as well as EKG. Lower suspicion for acute ACS. Sounds like her lightheadedness earlier is probably related to food and her diabetes rather than blood loss as she is asymptomatic at this point but given small fluid bolus here. She does report left lower quadrant tenderness and pain. Does have a history per report of some diverticulosis and as such a CT of the abdomen pelvis to be obtained to try to further evaluate if there is more diverticular type bleeding versus the internal hemorrhoid. Patient is hemodynamically stable and not tachycardic upon arrival. Review of medical records and prior report indicate that on October 2015 a colonoscopy showing sigmoid diverticulosis. EKG without significant arrhythmia no significant arrhythmia on the monitor here. Mild leukocytosis of 12.5 noted. Stable hemoglobin of 12.8. Platelet count 296. No significant lecture light abnormalities signs of renal dysfunction. No evidence of transaminitis. Troponin is undetectable. CT the abdomen pelvis shows some celiac artery stenosis. Normal appendix no evidence of bowel obstruction or acute diverticulitis. Questions possible proximal sigmoid and lower rectal hyperdense contents or acute hemorrhage. Discussed briefly with the general surgeon on-call given her recent intervention on internal hemorrhoids. Bleeding on the CT scan seems a bit higher than this. Discussed with Dr. Maguire and do not feel that this is somewhat related the hemorrhoid from the location seen possibly on the CT and thus recommend possible GI consultation and no acute intervention regarding the banding at this point. Patient's not having significant symptoms of diarrhea and lower suspicion for C. difficile although she has a history in the past. No evidence on the CT again for acute diverticulitis. Again with her anticoagulation status and the slow trickle of bright red blood and some clots she has been passing through the further observation here in the hospital is warranted. Discussed with the hospitalist. The patient was in agreement. DIAGNOSIS: Bright red blood per rectum DISPOSITION: Hospitalist will evaluate Patient was agreeable with this plan. 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 Diabetes mellitus, type 2 Fibromyalgia Gout H/O recurrent urinary tract infection Hallux valgus, acquired, bilateral Hemorrhoids, internal, with bleeding History of bronchitis Hyperlipidemia Hypertension Hypothyroidism IBS (irritable bowel syndrome) Incomplete emptying of bladder Left midfoot ulcer Methicillin susceptible Staphylococcus aureus infection Myocardial Infarction 2014 Osteoarthritis Paroxysmal atrial fibrillation Psoriatic arthritis ON CHRONIC PREDNISONE Right foot ulcer Sensorineural hearing loss of both ears Stress incontinence in female Surgical History Charcot's joint of foot RIGHT FOOT (4 SURGERIES TOTAL) History of adenoidectomy History of ankle surgery LEFT History of bilateral tubal ligation History of bladder repair surgery R/T URINARY LEAKAGE History of cardiac cath 2015= NO STENTS History of cataract surgery RIGHT/LEFT History of colonoscopy History of coronary artery bypass graft CABG X 3 (2014) History of dilatation and curettage History of repair of rotator cuff RIGHT. 03/12/2018. DONE AT [facility]. BLOCK WITH LMA. NO ISSUES. History of surgery BLADDER STIMULATOR IMPLANTED IN BACK- PER PATIENT "NOT CURRENTLY WORKING" (WILL BRING CARD/REMOTE DOS)- OR MADE AWARE* History of tonsillectomy History of tooth extraction History of total knee replacement LEFT Family History (Updated 01/23/20 @ 14:08 by Myriam Petersen RN) Mother Family hx of colon cancer Colorectal cancer Cardiac disorder Cancer Hypertension Father Cardiac disorder Hypertension Lung cancer Grandmother (Maternal) Stroke Denies family history of Ovarian cancer Breast cancer Social History (Updated 01/23/20 @ 14:08 by Myriam Petersen RN) Smoking Status: Never smoker Second Hand Exposure: No; Hx Alcohol Use: No Hx Substance Use: No Preferred Language: Slovenian Communication Ability: Effective Visual Impairment: No Limitations Hearing Ability: Hard of Hearing Manager Acquisition Required: No Beliefs That Will Affect Care: None marital status: Current Living Situation: Family current occupational status: retired Other Information That Helps Us Care for You: No Feels Safe at Home: Yes Safety Concerns: Feels Safe At This Time caffeine: No Assistive Devices: Cane, Glasses, Hearing Aid - Bilateral, Walker and Wheelchair Allergies Allergies Allergy/AdvReac Type Severity Reaction Status Date / Time tetanus toxoid, adsorbed Allergy Mild LOCALIZED Verified 02/15/20 13:45 REACTION, MADE HER FEEL SICK amoxicillin AdvReac Intermediate "GOT Verified 02/15/20 13:45 C-DIFF" minocycline AdvReac Mild HEADACHES Verified 02/15/20 13:45 tetracycline AdvReac Mild HEADACHES Verified 02/15/20 13:45 Home Meds Home Medications Medication Instructions Recorded Confirmed calcium carbonate-vitamin D3 1 tab PO QAM 02/19/18 02/15/20 [Calcium 500 + D] ferrous sulfate [iron] 325 mg PO QPM 02/19/18 02/15/20 gabapentin 400 mg PO TID 02/19/18 02/15/20 magnesium 250 mg PO HS 02/19/18 02/15/20 multivitamin 1 tab PO QAM 02/19/18 02/15/20 potassium 1 tab PO HS 02/19/18 02/15/20 Neosporin (poh-fsi-hzdve) 1 applic TOPICAL DIRECTED 03/12/18 02/15/20 cyanocobalamin-cobamamide [B-12 1,000 mcg SUBLINGUAL QAM 03/12/18 02/15/20 Plus] triamcinolone acetonide [Nasacort] 1 spray INTRANASAL QAM 03/12/18 02/15/20 methenamine hippurate 1 gram tablet 1 gm PO BID tab 10/14/19 02/15/20 cefadroxil 1 gram tablet 1,000 mg PO QAM 10/20/19 02/15/20 risedronate 150 mg tablet 150 mg PO QAM 10/20/19 02/15/20 aspirin 81 mg PO QAM 02/15/20 02/15/20 duloxetine [Cymbalta] 20 mg PO QAM 02/15/20 02/15/20 omeprazole 20 mg PO DAILYBB 02/15/20 02/15/20 rivaroxaban [Xarelto] 20 mg PO QAM 02/15/20 02/15/20 triamterene-hydrochlorothiazid 1 cap PO QAM 02/15/20 02/15/20 valacyclovir 500 mg PO QAM 02/15/20 02/15/20 Previous Rx's Medication Instructions Recorded OneTouch Verio test strips #200 ea NS 01/02/19 lancets 30 gauge #200 ea 01/08/19 atorvastatin 80 mg tablet 80 mg PO HS #90 tab 03/24/19 prednisone 5 mg tablet 5 mg PO QAM #90 tab 06/02/19 nitroglycerin 0.4 mg sublingual 0.4 mg SUBLINGUAL Q5M PRN #25 tab 09/03/19 tablet allopurinol 100 mg tablet 100 mg PO QAM #90 tab 09/09/19 Trulicity 1.5 mg/0.5 mL 1.5 mg SQ WEEKLY 90 Days #6 ml NS 10/24/19 subcutaneous pen injector metformin 500 mg tablet 500 mg PO QPM #90 tab 11/03/19 metoprolol succinate 50 mg 50 mg PO HS #180 tab 12/04/19 tablet,extended release 24 hr levothyroxine 75 mcg capsule 75 mcg PO QAM #90 cap 01/19/20 nitrofurantoin 100 mg PO BID #20 cap 01/21/20 monohydrate/macrocrystals 100 mg capsule Results & Data (ED) Vital Signs Vital Signs - 24 hr 02/15/20 11:37 02/15/20 12:05 02/15/20 12:30 Temperature 37.0 C Temperature Source Oral Pulse Rate 94 H 77 Pulse Rate from SpO2 Sensor 78 Respiratory Rate 21 24 Respiratory Effort / Characteristics Non-Labored Respiratory Depth Normal Blood Pressure 151/78 H 139/80 Blood Pressure Mean 102 95 Pulse Oximetry 96 94 98 Oxygen Delivery Method Room Air Room Air Room Air Sepsis Recent Fever Within 48 Hours No Sepsis New/Unexplained Change in Mental Status No Sepsis Action Taken by Nursing No Action Required 02/15/20 12:53 02/15/20 13:11 02/15/20 13:30 Temperature Temperature Source Pulse Rate 89 80 Pulse Rate from SpO2 Sensor 78 91 H 80 Respiratory Rate 26 H 14 17 Respiratory Effort / Characteristics Respiratory Depth Blood Pressure Blood Pressure Mean Pulse Oximetry 96 96 97 Oxygen Delivery Method Room Air Room Air Room Air Sepsis Recent Fever Within 48 Hours Sepsis New/Unexplained Change in Mental Status Sepsis Action Taken by Nursing 02/15/20 14:00 Temperature Temperature Source Pulse Rate 81 Pulse Rate from SpO2 Sensor 81 Respiratory Rate 18 Respiratory Effort / Characteristics Respiratory Depth Blood Pressure Blood Pressure Mean Pulse Oximetry 98 Oxygen Delivery Method Room Air Sepsis Recent Fever Within 48 Hours Sepsis New/Unexplained Change in Mental Status Sepsis Action Taken by Nursing Laboratory Data Result diagrams: 02/15/20 12:22 02/15/20 12:22 Lab Results 02/15/20 02/15/20 02/15/20 Range/Units 12:22 12:22 12:22 WBC 12.55 H (4.8-10.8) K/uL RBC 4.00 L (4.2-5.4) M/uL Hgb 12.8 (12.0-16.0) g/dL Hct 39.2 (37-47) % MCV 98.0 (80-100) fL MCH 32.0 (25-34) pg MCHC 32.7 (32-36) g/dL RDW Std Deviation 49.4 H (36.4-46.3) fL RDW Coeff of Kristen 13.9 (11.5-14.5) % Plt Count 296 (130-400) K/uL MPV 9.8 (7.4-10.4) fL Immature Gran % (Auto) 0.3 % Neut % (Auto) 80.0 % Lymph % (Auto) 14.3 % [place] % (Auto) 4.6 % Eos % (Auto) 0.6 % Baso % (Auto) 0.2 % Neut # (Auto) 10.05 H (1.4-6.5) K/uL Lymph # (Auto) 1.79 (1.2-3.4) K/uL [place] # (Auto) 0.58 (0.11-0.59) K/uL Eos # (Auto) 0.07 (0-0.5) K/uL Baso # (Auto) 0.02 (0-0.2) K/uL Immature Gran # (Auto) 0.04 H (0.00-0.02) K/uL PT 14.0 H (9.0-12.0) Seconds INR 1.3 H (0.9-1.1) APTT 32.8 H (21.0-31.0) Seconds PTT Ratio 1.2 Sodium (136-145) mmol/L Potassium (3.5-5.1) mmol/L Chloride (98-107) mmol/L Carbon Dioxide (21-32) mmol/L Anion Gap (3-11) BUN (7-18) mg/dl Creatinine (0.6-1.2) mg/dl Est Cr Clr Drug Dosing ml/min Est GFR ( Amer) Est GFR (Non-Af Amer) BUN/Creatinine Ratio (10-20) Glucose (70-99) mg/dl Calcium (8.5-10.1) mg/dl Total Bilirubin (0.2-1) mg/dl AST (15-37) U/L ALT (12-78) U/L Alkaline Phosphatase (45-117) U/L Troponin I (0-0.045) ng/ml Total Protein (6.4-8.2) gm/dl Albumin (3.4-5.0) gm/dl Globulin (2.5-4.0) gm/dl Albumin/Globulin Ratio (0.9-2) Blood Type A Positive Antibody Screen NEGATIVE 02/15/20 Range/Units 12:22 WBC (4.8-10.8) K/uL RBC (4.2-5.4) M/uL Hgb (12.0-16.0) g/dL Hct (37-47) % MCV (80-100) fL MCH (25-34) pg MCHC (32-36) g/dL RDW Std Deviation (36.4-46.3) fL RDW Coeff of Kristen (11.5-14.5) % Plt Count (130-400) K/uL MPV (7.4-10.4) fL Immature Gran % (Auto) % Neut % (Auto) % Lymph % (Auto) % [place] % (Auto) % Eos % (Auto) % Baso % (Auto) % Neut # (Auto) (1.4-6.5) K/uL Lymph # (Auto) (1.2-3.4) K/uL [place] # (Auto) (0.11-0.59) K/uL Eos # (Auto) (0-0.5) K/uL Baso # (Auto) (0-0.2) K/uL Immature Gran # (Auto) (0.00-0.02) K/uL PT (9.0-12.0) Seconds INR (0.9-1.1) APTT (21.0-31.0) Seconds PTT Ratio Sodium 137 (136-145) mmol/L Potassium 3.7 (3.5-5.1) mmol/L Chloride 101 (98-107) mmol/L Carbon Dioxide 27 (21-32) mmol/L Anion Gap 9.0 (3-11) BUN 16 (7-18) mg/dl Creatinine 1.08 (0.6-1.2) mg/dl Est Cr Clr Drug Dosing 45.8 ml/min Est GFR ( Amer) 58.2 Est GFR (Non-Af Amer) 50.2 BUN/Creatinine Ratio 14.6 (10-20) Glucose 212 H (70-99) mg/dl Calcium 8.7 (8.5-10.1) mg/dl Total Bilirubin 0.8 (0.2-1) mg/dl AST 21 (15-37) U/L ALT 35 (12-78) U/L Alkaline Phosphatase 117 (45-117) U/L Troponin I < 0.015 (0-0.045) ng/ml Total Protein 7.7 (6.4-8.2) gm/dl Albumin 3.3 L (3.4-5.0) gm/dl Globulin 4.4 H (2.5-4.0) gm/dl Albumin/Globulin Ratio 0.7 L (0.9-2) Blood Type Antibody Screen Administered Medications Discontinued Medications Sodium Chloride (Nss) 500 mls @ 999 mls/hr IV .Q31M DENEEN Stop: 02/15/20 12:45 Last Infusion: 02/15/20 13:22 Dose: 0 mls/hr Documented by: [id number] Admin: 02/15/20 12:51 Dose: 999 mls/hr Documented by: [id number] Pantoprazole Sodium 40 mg/ (Syringe) 10 mls @ 5 mls/min IV NOW ONE Stop: 02/15/20 12:14 Last Admin: 02/15/20 12:51 Dose: 5 mls/min Documented by: [id number] Ioversol (Ioversol 100ml) 120 ml IV ONCE ONE Stop: 02/15/20 13:10 Last Admin: 02/15/20 13:09 Dose: 120 ml Documented by: [id number] Discharge Plan Visit Data Chief Complaint: Rectal Bleed Stated Complaint: RECTAL BLEEDING ED Provider: Jayme Thacker Discharge Problem: BRBPR (bright red blood per rectum) Patient Disposition: Admitted As Inpatient Discharge Instructions Interventions: ED Discharge Assessment Last Done: 02/15/20 15:45
[2020-02-15] MEDS ORDERED: PANTOprazole 40 MG in SYRINGE 0 ML IV ONE (12:13)
[2020-02-15] MEDS ORDERED: SODIUM CHLORIDE 0.9% 500 ML IV SCH (12:15)
[2020-02-15 12:33] LABS: Basophils # (auto) 0.02 K/uL (0-0.2); Basophils % (auto) 0.2 %; Eosinophils # (auto) 0.07 K/uL (0-0.5); Eosinophils % (auto) 0.6 %; Hematocrit (blood only) 39.2 % (37-47); Hemoglobin 12.8 g/dL (12.0-16.0); Immature Granulocytes # (auto) 0.04 K/uL (0.00-0.02); Immature Granulocytes % (auto) 0.3 %; Lymphocytes # (auto) 1.79 K/uL (1.2-3.4); Lymphocytes % (auto) 14.3 %; Mean Corpuscular Hgb Conc 32.7 g/dL (32-36); Mean Platelet Volume 9.8 fL (7.4-10.4); Monocytes # (auto) 0.58 K/uL (0.11-0.59); Monocytes % (auto) 4.6 %; Neutrophils # (auto) 10.05 K/uL (1.4-6.5); Platelet Count 296 K/uL (130-400); RDW Coefficient of Variation 13.9 % (11.5-14.5); RDW Standard Deviation 49.4 fL (36.4-46.3); White Blood Count 12.55 K/uL (4.8-10.8)
[2020-02-15 12:47] LABS: INR 1.3 (0.9-1.1); Partial Thromboplastin Ratio 1.2; Partial Thromboplastin Time 32.8 Seconds (21.0-31.0)
[2020-02-15 12:50] LABS: Alanine Aminotransferase 35 U/L (12-78); Albumin Level 3.3 gm/dl (3.4-5.0); Aspartate Aminotransferase 21 U/L (15-37); BUN Creatinine Ratio 14.6 (10-20); Blood Urea Nitrogen 16 mg/dl (7-18); Calcium 8.7 mg/dl (8.5-10.1); Carbon Dioxide 27 mmol/L (21-32); Chloride 101 mmol/L (98-107); Creatinine Clr Calc Pharmacy 45.8 ml/min; Est GFR (African American) 58.2; Est GFR (Non-African American) 50.2; Glucose 212 mg/dl (70-99); Potassium 3.7 mmol/L (3.5-5.1); Sodium 137 mmol/L (136-145)
[2020-02-15 12:55] LABS: Albumin Globulin Ratio 0.7 (0.9-2); Alkaline Phosphatase 117 U/L (45-117); Bilirubin,Total 0.8 mg/dl (0.2-1); Globulin 4.4 gm/dl (2.5-4.0); Total Protein 7.7 gm/dl (6.4-8.2); Troponin I < 0.015 ng/ml (0-0.045)
[2020-02-15] MEDS ORDERED: IOVERSOL 100ml IV ONE (13:09)
--- NOTE | 2020-02-15 13:26 | CT Scan Report ---
CT angio abdomen pelvis w con CT DOSE: 834.88 mGy.cm CLINICAL HISTORY: Left lower quadrant abdominal pain and rectal bleeding. TECHNIQUE: CT angiography abdomen pelvis performed a dynamic helical fashion during intravenous admin istration of 120 cc of Optiray 320. MIP images were acquired. A dose lowering technique was utilized adhering to the principles of ALARA. COMPARISON STUDY: CT scan of the abdomen and pelvis dated 07/01/2014 FINDINGS: There are dependent atelectatic changes. Partially visualized parenchymal opacities within the right middle lobe, are also statistically atelectatic. There is hepatic steatosis. No focal masses are visualized on this arterial phase study. No gallbladder abnormalities are visualized. No splenic lesions are visualized in this arterial phase study. No pancreatic lesions are delineated. No adrenal masses are visualized. There are bilateral renal cysts. No solid renal masses are visualized in this arterial phase study. There is no free air. There is no ascites. There is a small fat-containing umbilical hernia. There are no transition zones to indicate bowel obstruction. There is a prominent diverticulum arisin g from the transverse duodenum. There is colonic diverticulosis. There is no evidence of acute diverticulitis. The appendix appears n ormal. There are small hyperdense foci within the lower rectum and upper sigmoid. These could represent pre- existing enteric contents or areas of hemorrhage. There is no evidence of abdominal aortic aneurysm. There is no evidence of renal artery stenosis. There is no evidence of superior mesenteric artery esdras nosis. There are tandem stenotic lesions involving the celiac artery. The inferior mesenteric artery is patent. There are calcified uterine fibroids. There are no pathologic adnexal masses. There is no pathologic adenopathy. No destructive skeletal lesions are visualized. There is a right-sided sacral stimulator. Electrode extends anteriorly into the right obturator inter nus muscle IMPRESSION: 1. Celiac artery stenosis 2. No evidence of superior mesenteric artery stenosis. No evidence of renal artery stenosis 3. No evidence of bowel obstruction. No evidence of free air 4. Normal appendix 5. Pandiverticulosis. No evidence of acute diverticulitis 6. Hyperdense foci within the proximal sigmoid colon and lower rectum. These could represent pre-exis ting hyperdense enteric contents or acute hemorrhage. ACT 112: Negative or not required by law. Electronically signed by: Wilfredo Bah M.D. 02/15/2020 1:25 PM
--- NOTE | 2020-02-15 14:54 | History & Physical Report ---
Date of Service February 15, 2020 Assessment & Plan (1) BRBPR (bright red blood per rectum): Ongoing for several weeks with recent hemorrhoidal banding; however, today it has gotten significantly worse. Ddx includes another hemorrhoid, complication from current band (which ED provider reported is still in place on his exam), or higher bleed such as diverticular bleeding. Last colonoscopy was in [address] Cantrell, and she reports several polyps and divericuli. - Monitor H&H - Surgery consulted given recent procedure - Consulted Dr. Cantrell as well. - Hold Xarelto and ASA - Supportive care (2) Incomplete bladder emptying: Follows with Dr. Aguirre in urology for neurogenic bladder. Began straight- cathing 3x/day recently. - Continue straight-cathing - Continue methenamine for UTI ppx (3) Hypertension: BP is 135/75. - Continue metoprolol - Holding triamterene-HCTZ for now (4) Diabetes: A1c was 7.2% in 10/2019. - Hold metformin - Sliding scale insulin (5) Paroxysmal atrial fibrillation: EKG on admission is quite interesting with lots of spikes that would indicate a pacemaker; however, she does not have a pacemaker, and I believe it is picking up her bladder stimulator. - Hold Xarelto at this time. - Continue metoprolol (6) CAD (coronary artery disease): No chest pain or indication on EKG of acute ischemia. Troponin was negative on admission. - Continue statin - Hold ASA for now (7) Fibromyalgia: No pain presently. - Continue duloxetine & gabapentin (8) Hypothyroidism: TSH was 1.17 in 10/2019. No signs/symptoms of hypo-/hyperthyroidism. - Continue home Synthroid 75 mcg (9) Gout: No present flare. - Continue allopurinol (10) Osteomyelitis of right foot: In 07/2018. On chronic abx therapy, even when on abx for UTI. - Continue cefadroxil (11) DVT prophylaxis: SCDs - Holding heparin for GI bleed History of Present Illness Primary Care Provider: Reno Perez MD 74 F w/ hx of CAD, DM, HTN, hemorrhoids who presents with bright red blood per rectum. The patient noted it this morning. She passed some stool and noted blood on the toilet paper and then some in the toilet bowl as well as some clots. She has been following with general surgery who banded an internal hemorrhoid on 02/02/2020, and her bleeding has been ongoing for awhile. Today, she reports it is worse than it ever has been. She reports she is passing clots and saturating multiple wipes of toilet paper. No lightheadedness or dizziness though. No nausea or emesis. LLQ abdominal pain started about Sunday, though possibly longer (it started very mildly, so she is uncertain of exact time it started). It is localized to that area. No radiation. Cramping in nature. She does not have any exacerbating or alleviating factors and has not taken anything for it. Allergies Allergy/AdvReac Type Severity Reaction Status Date / Time tetanus toxoid, adsorbed Allergy Mild LOCALIZED Verified 02/15/20 13:45 REACTION, MADE HER FEEL SICK amoxicillin AdvReac Intermediate "GOT Verified 02/15/20 13:45 C-DIFF" minocycline AdvReac Mild HEADACHES Verified 02/15/20 13:45 tetracycline AdvReac Mild HEADACHES Verified 02/15/20 13:45 Home Medications Medication Instructions Recorded Confirmed Type calcium carbonate-vitamin D3 1 tab PO QAM 02/19/18 02/15/20 History [Calcium 500 + D] ferrous sulfate [iron] 325 mg PO QPM 02/19/18 02/15/20 History gabapentin 400 mg PO TID 02/19/18 02/15/20 History magnesium 250 mg PO HS 02/19/18 02/15/20 History multivitamin 1 tab PO QAM 02/19/18 02/15/20 History potassium 1 tab PO HS 02/19/18 02/15/20 History Neosporin ([id number]) 1 applic TOPICAL DIRECTED 03/12/18 02/15/20 History cyanocobalamin-cobamamide [B-12 1,000 mcg SUBLINGUAL QAM 03/12/18 02/15/20 History Plus] triamcinolone acetonide [Nasacort] 1 spray INTRANASAL QAM 03/12/18 02/15/20 History OneTouch Verio test strips #200 ea NS 01/02/19 02/10/20 Rx lancets 30 gauge #200 ea 01/08/19 02/10/20 Rx atorvastatin 80 mg tablet 80 mg PO HS #90 tab 03/24/19 02/15/20 Rx prednisone 5 mg tablet 5 mg PO QAM #90 tab 06/02/19 02/15/20 Rx nitroglycerin 0.4 mg sublingual 0.4 mg SUBLINGUAL Q5M PRN #25 tab 09/03/19 02/15/20 Rx tablet allopurinol 100 mg tablet 100 mg PO QAM #90 tab 09/09/19 02/15/20 Rx methenamine hippurate 1 gram tablet 1 gm PO BID tab 10/14/19 02/15/20 History cefadroxil 1 gram tablet 1,000 mg PO QAM 10/20/19 02/15/20 History risedronate 150 mg tablet 150 mg PO QAM 10/20/19 02/15/20 History Trulicity 1.5 mg/0.5 mL 1.5 mg SQ WEEKLY 90 Days #6 ml NS 10/24/19 02/15/20 Rx subcutaneous pen injector metformin 500 mg tablet 500 mg PO QPM #90 tab 11/03/19 02/15/20 Rx metoprolol succinate 50 mg 50 mg PO HS #180 tab 12/04/19 02/15/20 Rx tablet,extended release 24 hr levothyroxine 75 mcg capsule 75 mcg PO QAM #90 cap 01/19/20 02/15/20 Rx nitrofurantoin 100 mg PO BID #20 cap 01/21/20 02/15/20 Rx monohydrate/macrocrystals 100 mg capsule aspirin 81 mg PO QAM 02/15/20 02/15/20 History duloxetine [Cymbalta] 20 mg PO QAM 02/15/20 02/15/20 History omeprazole 20 mg PO DAILYBB 02/15/20 02/15/20 History rivaroxaban [Xarelto] 20 mg PO QAM 02/15/20 02/15/20 History triamterene-hydrochlorothiazid 1 cap PO QAM 02/15/20 02/15/20 History valacyclovir 500 mg PO QAM 02/15/20 02/15/20 History Past Med/Surg History Medical History Acquired claw toe of both feet Anemia CHRONIC; BASELINE HGB LOW 11 RANGE PER CHART REVIEW Arthritis CAD (coronary artery disease) CABG X 3 (2014) Callus Charcot's joint of foot in type 2 diabetes mellitus Charcot's joint of right foot 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 Diabetes mellitus, type 2 Fibromyalgia Gout H/O recurrent urinary tract infection Hallux valgus, acquired, bilateral Hemorrhoids, internal, with bleeding History of bronchitis Hyperlipidemia Hypertension Hypothyroidism IBS (irritable bowel syndrome) Incomplete emptying of bladder Left midfoot ulcer Methicillin susceptible Staphylococcus aureus infection Myocardial Infarction 2015 Osteoarthritis Paroxysmal atrial fibrillation Psoriatic arthritis ON CHRONIC PREDNISONE Right foot ulcer Sensorineural hearing loss of both ears Stress incontinence in female Surgical History Charcot's joint of foot RIGHT FOOT (4 SURGERIES TOTAL) History of adenoidectomy History of ankle surgery LEFT History of bilateral tubal ligation History of bladder repair surgery R/T URINARY LEAKAGE History of cardiac cath 2014= NO STENTS History of cataract surgery RIGHT/LEFT History of colonoscopy History of coronary artery bypass graft CABG X 3 (2014) History of dilatation and curettage History of repair of rotator cuff RIGHT. 03/12/2018. DONE AT [facility]. BLOCK WITH LMA. NO ISSUES. History of surgery BLADDER STIMULATOR IMPLANTED IN BACK- PER PATIENT "NOT CURRENTLY WORKING" (WILL BRING CARD/REMOTE DOS)- OR MADE AWARE* History of tonsillectomy History of tooth extraction History of total knee replacement LEFT Family History Mother Family hx of colon cancer Colorectal cancer Cardiac disorder Cancer Hypertension Father Cardiac disorder Hypertension Lung cancer Grandmother (Maternal) Stroke Denies family history of Ovarian cancer Breast cancer Social History Smoking Status: Never smoker Second Hand Exposure: No; Hx Alcohol Use: No Hx Substance Use: No Preferred Language: Armenian Communication Ability: Effective Visual Impairment: No Limitations Hearing Ability: Hard of Hearing Medical Coordinator Pesticide Use Required: No Beliefs That Will Affect Care: None marital status: Current Living Situation: Family current occupational status: retired Other Information That Helps Us Care for You: No Feels Safe at Home: Yes Safety Concerns: Feels Safe At This Time caffeine: No Assistive Devices: Glasses and Hearing Aid - Bilateral Review of Systems Review of Systems: All systems reviewed & are unremarkable except as noted in HPI & below Physical Exam Constitutional: WD/WN, vitals as above Eyes: EOM intact bilaterally; no conjunctival abnormality ENMT: external ear and nose normal, oropharynx normal Neck: trachea midline, no thyromegaly normal visual inspection Respiratory: normal respiratory effort, lungs clear to auscultation no respiratory distress Cardiovascular: RRR, no murmur, no edema Gastrointestinal (Abdomen): Inspection/Auscultation: abdomen normal to inspection and normal bowel sounds; abdomen not distended Percussion/Palpation: + abdomen tender (LLQ) and abdomen soft; no guarding and abdomen not rigid Musculoskeletal: no cyanosis or clubbing, extremities motor strength 5/5 Skin: no rashes, warm and dry Neurologic: moves all extremities and awake Psychiatric: Orientation: alert, oriented to person and cooperative Results & Data Results & Data ([facility]) Vital Signs (Past 12 Hours) Vital Signs Temp Pulse Resp BP Pulse Ox 02/15/20 13:11 89 14 96 02/15/20 12:53 26 H 96 02/15/20 12:30 98 02/15/20 12:05 77 24 139/80 94 02/15/20 11:37 37.0 C 94 H 21 151/78 H 96 Code Status & VTE Plan VTE Prophylaxis Plan VTE Prophylaxis will be ordered: Yes PG Care Time/CCT Total # of Minutes Spent Total Time Spent with Patient: Total time spent is greater than 50% in coordination of care (as documented) at patient's floor/unit and/or counseling patient: Coding Level of Care Code 93652 OBS Care - Level 3 Diagnoses BRBPR (bright red blood per rectum) K62.5 Incomplete bladder emptying R33.9 Hypertension I10 Diabetes E11.9 Paroxysmal atrial fibrillation I48.0 CAD (coronary artery disease) I25.10 Fibromyalgia M79.7 Hypothyroidism E03.9 Gout M10.9 Osteomyelitis of right foot M86.9 DVT prophylaxis Z29.9
[2020-02-15] MEDS ORDERED: GLUCAGON FOR INJ 1 MG VIAL SQ PRN (16:23)
[2020-02-15] MEDS ORDERED: GLUCOSE 10 TABS/TUBE PO PRN (16:23)
[2020-02-15] MEDS ORDERED: DEXTROSE 50% 50 ML SYRINGE IV PRN (16:23)
[2020-02-15] MEDS ORDERED: CARBOHYDRATES FOR HYPOGLYCEMIA PO PRN (16:23)
[2020-02-15] MEDS ORDERED: ONDANSETRON INJ 2 MG/ML 2 ML VIAL IV PRN (16:23)
[2020-02-15] MEDS ORDERED: ACETAMINOPHEN 325 MG TAB PO PRN (16:23)
[2020-02-15] MEDS ORDERED: GLUCOSE 40% GEL 15 GM TUBE PO PRN (16:23)
[2020-02-15] MEDS: INSULIN ASPART 100 UNITS/ML 3 ML PEN SC SCH ×2 (18:10→21:11)
[2020-02-15] MEDS ORDERED: METOPROLOL SUCC 50MG EXT REL TAB PO SCH (21:00)
[2020-02-15] MEDS: GABAPENTIN 400 MG CAP PO SCH (21:09)
[2020-02-15] MEDS: ATORVASTATIN 40 MG TAB PO SCH (21:09)
[2020-02-15 21:53] LABS: Hematocrit (blood only) 38.6 % (37-47); Hemoglobin 12.6 g/dL (12.0-16.0)
[2020-02-15] MEDS: METHENAMINE HIPPURATE 1 GM TAB PO SCH (22:15)
--- NOTE | 2020-02-15 22:35 | Electrocardiogram Report ---
Test Reason : Blood Pressure : / mmHG Vent. Rate : 076 BPM Atrial Rate : 075 BPM P-R Int : 156 ms QRS Dur : 078 ms QT Int : 396 ms P-R-T Axes : -15 021 089 degrees QTc Int : 445 ms Poor data quality, interpretation may be adversely affected Normal sinus rhythm Low voltage QRS Nonspecific T wave abnormality Abnormal ECG When compared with ECG of 12-SEP-2018 12:55, Significant artifact is now present Confirmed by Jonny Myers ([id number]) on 02/15/2020 10:34:54 PM Referred By: REFERRED SELF Confirmed By:Jonny Myers
[2020-02-16] MEDS: PANTOprazole 40 MG TAB PO SCH (05:53)
[2020-02-16] MEDS: LEVOTHYROXINE SODIUM 75 MCG TABLET PO SCH (05:53)
[2020-02-16 07:46] LABS: Hematocrit (blood only) 36.2 % (37-47); Hemoglobin 11.7 g/dL (12.0-16.0); Mean Corpuscular Hemoglobin 31.7 pg (25-34); Mean Corpuscular Hgb Conc 32.3 g/dL (32-36); Mean Corpuscular Volume 98.1 fL (80-100); Mean Platelet Volume 9.9 fL (7.4-10.4); Platelet Count 301 K/uL (130-400); RDW Standard Deviation 50.2 fL (36.4-46.3); Red Blood Count 3.69 M/uL (4.2-5.4); White Blood Count 9.55 K/uL (4.8-10.8)
[2020-02-16] MEDS: predniSONE 5 MG TAB PO SCH (08:05)
[2020-02-16] MEDS: DULoxetine HCL 20 MG CAP PO SCH (08:06)
[2020-02-16] MEDS: allopurinoL 100 MG TAB PO SCH (08:06)
[2020-02-16] MEDS: GABAPENTIN 400 MG CAP PO SCH ×3 (08:07→20:25)
[2020-02-16] MEDS: METHENAMINE HIPPURATE 1 GM TAB PO SCH ×2 (08:07→20:25)
[2020-02-16] MEDS: valACYclovir HCL 500 MG TABLET PO SCH (08:08)
[2020-02-16 08:18] LABS: BUN Creatinine Ratio 10.7 (10-20); Calcium 8.8 mg/dl (8.5-10.1); Est GFR (African American) 64.6; Est GFR (Non-African American) 55.7
--- NOTE | 2020-02-16 08:20 | Surgery Consultation ---
Date of Consultation February 16, 2020 Assessment & Plan (1) BRBPR (bright red blood per rectum): seen with Dr. Ellsworth H&H stable bleeding is later than would be expected after banding, ? diverticular, consider colonoscopy in the near future History of Present Illness Attending Physician: Alfredito Jones MD History of Present Illness 74 y/o female on Xarelto had hemorrhoid banding two weeks ago by Dr. Ellsworth. Yesterday morning she began passing large blood clots, came to the ED around noon after several of these episodes. Has had regular BM last evening. Small amount of bleeding this morning. Last colonoscopy in 2015, scheduled for repeat in 2020. Allergies Allergy/AdvReac Type Severity Reaction Status Date / Time tetanus toxoid, adsorbed Allergy Mild LOCALIZED Verified 02/15/20 13:45 REACTION, MADE HER FEEL SICK amoxicillin AdvReac Intermediate "GOT Verified 02/15/20 13:45 C-DIFF" minocycline AdvReac Mild HEADACHES Verified 02/15/20 13:45 tetracycline AdvReac Mild HEADACHES Verified 02/15/20 13:45 Home Medications Medication Instructions Recorded Confirmed Type calcium carbonate-vitamin D3 1 tab PO QAM 02/19/18 02/15/20 History [Calcium 500 + D] ferrous sulfate [iron] 325 mg PO QPM 02/19/18 02/15/20 History gabapentin 400 mg PO TID 02/19/18 02/15/20 History magnesium 250 mg PO HS 02/19/18 02/15/20 History multivitamin 1 tab PO QAM 02/19/18 02/15/20 History potassium 1 tab PO HS 02/19/18 02/15/20 History Neosporin ([id number]) 1 applic TOPICAL DIRECTED 03/12/18 02/15/20 History cyanocobalamin-cobamamide [B-12 1,000 mcg SUBLINGUAL QAM 03/12/18 02/15/20 History Plus] triamcinolone acetonide [Nasacort] 1 spray INTRANASAL QAM 03/12/18 02/15/20 History OneTouch Verio test strips #200 ea NS 01/02/19 02/10/20 Rx lancets 30 gauge #200 ea 01/08/19 02/10/20 Rx atorvastatin 80 mg tablet 80 mg PO HS #90 tab 03/24/19 02/15/20 Rx prednisone 5 mg tablet 5 mg PO QAM #90 tab 06/02/19 02/15/20 Rx nitroglycerin 0.4 mg sublingual 0.4 mg SUBLINGUAL Q5M PRN #25 tab 09/03/19 02/15/20 Rx tablet allopurinol 100 mg tablet 100 mg PO QAM #90 tab 09/09/19 02/15/20 Rx methenamine hippurate 1 gram tablet 1 gm PO BID tab 10/14/19 02/15/20 History cefadroxil 1 gram tablet 1,000 mg PO QAM 10/20/19 02/15/20 History risedronate 150 mg tablet 150 mg PO QAM 10/20/19 02/15/20 History Trulicity 1.5 mg/0.5 mL 1.5 mg SQ WEEKLY 90 Days #6 ml NS 10/24/19 02/15/20 Rx subcutaneous pen injector metformin 500 mg tablet 500 mg PO QPM #90 tab 11/03/19 02/15/20 Rx metoprolol succinate 50 mg 50 mg PO HS #180 tab 12/04/19 02/15/20 Rx tablet,extended release 24 hr levothyroxine 75 mcg capsule 75 mcg PO QAM #90 cap 01/19/20 02/15/20 Rx nitrofurantoin 100 mg PO BID #20 cap 01/21/20 02/15/20 Rx monohydrate/macrocrystals 100 mg capsule aspirin 81 mg PO QAM 02/15/20 02/15/20 History duloxetine [Cymbalta] 20 mg PO QAM 02/15/20 02/15/20 History omeprazole 20 mg PO DAILYBB 02/15/20 02/15/20 History rivaroxaban [Xarelto] 20 mg PO QAM 02/15/20 02/15/20 History triamterene-hydrochlorothiazid 1 cap PO QAM 02/15/20 02/15/20 History valacyclovir 500 mg PO QAM 02/15/20 02/15/20 History Patient History Medical History Acquired claw toe of both feet Anemia CHRONIC; BASELINE HGB LOW 11 RANGE PER CHART REVIEW Arthritis CAD (coronary artery disease) CABG X 3 (2014) Callus Charcot's joint of foot in type 2 diabetes mellitus Charcot's joint of right foot 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 Diabetes mellitus, type 2 Fibromyalgia Gout H/O recurrent urinary tract infection Hallux valgus, acquired, bilateral Hemorrhoids, internal, with bleeding History of bronchitis Hyperlipidemia Hypertension Hypothyroidism IBS (irritable bowel syndrome) Incomplete emptying of bladder Left midfoot ulcer Methicillin susceptible Staphylococcus aureus infection Myocardial Infarction 2015 Osteoarthritis Paroxysmal atrial fibrillation Psoriatic arthritis ON CHRONIC PREDNISONE Right foot ulcer Sensorineural hearing loss of both ears Stress incontinence in female Surgical History Charcot's joint of foot RIGHT FOOT (4 SURGERIES TOTAL) History of adenoidectomy History of ankle surgery LEFT History of bilateral tubal ligation History of bladder repair surgery R/T URINARY LEAKAGE History of cardiac cath 2014= NO STENTS History of cataract surgery RIGHT/LEFT History of colonoscopy History of coronary artery bypass graft CABG X 3 (2014) History of dilatation and curettage History of repair of rotator cuff RIGHT. 03/12/2018. DONE AT [facility]. BLOCK WITH LMA. NO ISSUES. History of surgery BLADDER STIMULATOR IMPLANTED IN BACK- PER PATIENT "NOT CURRENTLY WORKING" (WILL BRING CARD/REMOTE DOS)- OR MADE AWARE* History of tonsillectomy History of tooth extraction History of total knee replacement LEFT Family History Mother Family hx of colon cancer Colorectal cancer Cardiac disorder Cancer Hypertension Father Cardiac disorder Hypertension Lung cancer Grandmother (Maternal) Stroke Denies family history of Ovarian cancer Breast cancer Social History Smoking Status: Never smoker Second Hand Exposure: No; Hx Alcohol Use: No Hx Substance Use: No Preferred Language: Cypriot Communication Ability: Effective Visual Impairment: No Limitations Hearing Ability: Hard of Hearing Attending Urologist Required: No Beliefs That Will Affect Care: None marital status: Current Living Situation: Family current occupational status: retired Other Information That Helps Us Care for You: No Feels Safe at Home: Yes Safety Concerns: Feels Safe At This Time caffeine: No Assistive Devices: Walker Review of Systems Gastrointestinal: + blood in stools; no abdominal pain, no nausea and no vomiting Physical Exam Constitutional: WD/WN, vitals as above Results & Data ([facility]) Vital Signs (Past 12 Hours) Vital Signs Temp Pulse Resp BP Pulse Ox 02/16/20 07:49 36.8 C 92 H 18 112/70 94 02/15/20 23:10 36.4 C L 77 16 116/72 96 02/15/20 21:07 80 133/74 PG Care Time/CCT Total # of Minutes Spent Total Time Spent with Patient: Total time spent is greater than 50% in coordination of care (as documented) at patient's floor/unit and/or counseling patient: Coding Level of Care Code 00790 Inpt Consult Level 1 Diagnoses BRBPR (bright red blood per rectum) K62.5
[2020-02-16 08:46] LABS: Estimated Average Glucose 180 mg/dl; Hemoglobin A1C 7.9 % (4.5-5.6)
[2020-02-16] MEDS ORDERED: SOD PHOSPHATE/SOD BIPHOSPHATE ENEMA 132 ML BTL PR STA (09:28)
[2020-02-16 09:35] LABS: Potassium 3.5 mmol/L (3.5-5.1)
[2020-02-16 09:36] LABS: Magnesium 1.7 mg/dl (1.8-2.4)
--- NOTE | 2020-02-16 09:42 | Gastrointestinal Consultation ---
Date of Consultation February 16, 2020 Assessment & Plan (1) BRBPR (bright red blood per rectum): (2) LLQ pain: Normal WBC, Hgb 11.7, Hct 36.2. Will obtain lactic acid. CTA A/P with findings of pandiverticulosis without acute diverticulitis. Patient is tender with LLQ palpation. S/P hemorrhoid banding 02/02/2020. Surgical consult this morning - refer to note for review. Plan is flexible sigmoidoscopy today. NPO now. Fleets enema x 2 approximately 1 hour prior to procedure. Nursing unit notified. Please refer to supervising physician addendum for further recommendations. History of Present Illness Attending Physician: Alfredito Jones MD History of Present Illness Patient is a pleasant 74-year-old female with past medical history to include type 2 diabetes mellitus, psoriatic arthritis, hypothyroidism, dyslipidemia, hypertension, osteomyelitis of the right ankle/foot, Charcot's arthropathy, coronary artery disease, CABG, history of paroxysmal atrial fibrillation, chronic anticoagulation on Xarelto, history of prior blood transfusions. Patient presented to the emergency department due to increased rectal bleeding with clots. Status post hemorrhoidal banding 02/02/2020. She is on chronic anticoagulation with Xarelto and 81 mg aspirin. She was subsequently admitted for further management. On exam/interview today, the patient reports that bright red rectal bleeding and clots have slowed down this morning. She states she woke yesterday morning around 630 experiencing urgency to have a bowel movement and thought she would have diarrhea. She does have history of IBS with diarrhea predominance. She states that she had large amount of bright red blood per rectum with large clots. She states that blood would drip even when standing. This went on for several hours prior to presenting to the emergency department for further evaluation. She states that she had bilateral lower quadrant abdominal pain. Pain continues with palpation. Denies nausea or vomiting. Denies dizziness or lightheadedness this morning walking to bathroom. Denies chest pain or shortness of breath. Reports typically bowel movements are 1-3 times daily soft formed and easy to pass. Tolerating clear liquid diet without difficulty this morning. 11/22/2015: Colonoscopy notes reviewed performed by Dr. Cantrell. Multiple diverticula found in the sigmoid colon with mild rectal prolapse noted. 13 mm polyp found in the proximal ascending colon which was removed and sent for biopsy. 7 mm polyp found in the sigmoid colon also removed and sent for biopsy. Biopsy results demonstrated ascending colon polyp suggestive of hyperplastic polyp. Sigmoid colon polyp tubular adenoma. Follow-up colonoscopy surveillance recommendation for 5 years. The patient is a lifetime non-smoker with no significant secondhand smoke exposures. She reports that she consumes alcohol approximately 1 times weekly. She denies any use of recreational drugs including marijuana. She is and lives at home with her . She has 2 adult children and 2 stepchildren. Allergies Allergy/AdvReac Type Severity Reaction Status Date / Time tetanus toxoid, adsorbed Allergy Mild LOCALIZED Verified 02/15/20 13:45 REACTION, MADE HER FEEL SICK amoxicillin AdvReac Intermediate "GOT Verified 02/15/20 13:45 C-DIFF" minocycline AdvReac Mild HEADACHES Verified 02/15/20 13:45 tetracycline AdvReac Mild HEADACHES Verified 02/15/20 13:45 Home Medications Medication Instructions Recorded Confirmed Type calcium carbonate-vitamin D3 1 tab PO QAM 02/19/18 02/15/20 History [Calcium 500 + D] ferrous sulfate [iron] 325 mg PO QPM 02/19/18 02/15/20 History gabapentin 400 mg PO TID 02/19/18 02/15/20 History magnesium 250 mg PO HS 02/19/18 02/15/20 History multivitamin 1 tab PO QAM 02/19/18 02/15/20 History potassium 1 tab PO HS 02/19/18 02/15/20 History Neosporin ([id number]) 1 applic TOPICAL DIRECTED 03/12/18 02/15/20 History cyanocobalamin-cobamamide [B-12 1,000 mcg SUBLINGUAL QAM 03/12/18 02/15/20 History Plus] triamcinolone acetonide [Nasacort] 1 spray INTRANASAL QAM 03/12/18 02/15/20 History OneTouch Verio test strips #200 ea NS 01/02/19 02/10/20 Rx lancets 30 gauge #200 ea 01/08/19 02/10/20 Rx atorvastatin 80 mg tablet 80 mg PO HS #90 tab 03/24/19 02/15/20 Rx prednisone 5 mg tablet 5 mg PO QAM #90 tab 06/02/19 02/15/20 Rx nitroglycerin 0.4 mg sublingual 0.4 mg SUBLINGUAL Q5M PRN #25 tab 09/03/19 02/15/20 Rx tablet allopurinol 100 mg tablet 100 mg PO QAM #90 tab 09/09/19 02/15/20 Rx methenamine hippurate 1 gram tablet 1 gm PO BID tab 10/14/19 02/15/20 History cefadroxil 1 gram tablet 1,000 mg PO QAM 10/20/19 02/15/20 History risedronate 150 mg tablet 150 mg PO QAM 10/20/19 02/15/20 History Trulicity 1.5 mg/0.5 mL 1.5 mg SQ WEEKLY 90 Days #6 ml NS 10/24/19 02/15/20 Rx subcutaneous pen injector metformin 500 mg tablet 500 mg PO QPM #90 tab 11/03/19 02/15/20 Rx metoprolol succinate 50 mg 50 mg PO HS #180 tab 12/04/19 02/15/20 Rx tablet,extended release 24 hr levothyroxine 75 mcg capsule 75 mcg PO QAM #90 cap 01/19/20 02/15/20 Rx nitrofurantoin 100 mg PO BID #20 cap 01/21/20 02/15/20 Rx monohydrate/macrocrystals 100 mg capsule aspirin 81 mg PO QAM 02/15/20 02/15/20 History duloxetine [Cymbalta] 20 mg PO QAM 02/15/20 02/15/20 History omeprazole 20 mg PO DAILYBB 02/15/20 02/15/20 History rivaroxaban [Xarelto] 20 mg PO QAM 02/15/20 02/15/20 History triamterene-hydrochlorothiazid 1 cap PO QAM 02/15/20 02/15/20 History valacyclovir 500 mg PO QAM 02/15/20 02/15/20 History Patient History Medical History Acquired claw toe of both feet Anemia CHRONIC; BASELINE HGB LOW 11 RANGE PER CHART REVIEW Arthritis CAD (coronary artery disease) CABG X 3 (2014) Callus Charcot's joint of foot in type 2 diabetes mellitus Charcot's joint of right foot 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 Diabetes mellitus, type 2 Fibromyalgia Gout H/O recurrent urinary tract infection Hallux valgus, acquired, bilateral Hemorrhoids, internal, with bleeding History of bronchitis Hyperlipidemia Hypertension Hypothyroidism IBS (irritable bowel syndrome) Incomplete emptying of bladder Left midfoot ulcer Methicillin susceptible Staphylococcus aureus infection Myocardial Infarction 2014 Osteoarthritis Paroxysmal atrial fibrillation Psoriatic arthritis ON CHRONIC PREDNISONE Right foot ulcer Sensorineural hearing loss of both ears Stress incontinence in female Surgical History Charcot's joint of foot RIGHT FOOT (4 SURGERIES TOTAL) History of adenoidectomy History of ankle surgery LEFT History of bilateral tubal ligation History of bladder repair surgery R/T URINARY LEAKAGE History of cardiac cath 2014= NO STENTS History of cataract surgery RIGHT/LEFT History of colonoscopy History of coronary artery bypass graft CABG X 3 (2014) History of dilatation and curettage History of repair of rotator cuff RIGHT. 03/12/2018. DONE AT [facility]. BLOCK WITH LMA. NO ISSUES. History of surgery BLADDER STIMULATOR IMPLANTED IN BACK- PER PATIENT "NOT CURRENTLY WORKING" (WILL BRING CARD/REMOTE DOS)- OR MADE AWARE* History of tonsillectomy History of tooth extraction History of total knee replacement LEFT Family History Mother Family hx of colon cancer Colorectal cancer Cardiac disorder Cancer Hypertension Father Cardiac disorder Hypertension Lung cancer Grandmother (Maternal) Stroke Denies family history of Ovarian cancer Breast cancer Social History Smoking Status: Never smoker Second Hand Exposure: No; Hx Alcohol Use: No Hx Substance Use: No Preferred Language: Turkmen Communication Ability: Effective Visual Impairment: No Limitations Hearing Ability: Hard of Hearing Shake Table Operator Required: No Beliefs That Will Affect Care: None marital status: Current Living Situation: Family current occupational status: retired Other Information That Helps Us Care for You: No Feels Safe at Home: Yes Safety Concerns: Feels Safe At This Time caffeine: No Assistive Devices: Walker Review of Systems Review of Systems: All systems reviewed & are unremarkable except as noted in Subjective Physical Exam Constitutional: WD/WN, vitals as above + obese Eyes: no eyelid abnormality, no conjunctival abnormality and no scleral abnormality ENMT: Ears: no external ear abnormality Nose: no external nose abnormality Neck: normal visual inspection and trachea midline Respiratory: normal respiratory effort; no respiratory distress and no labored breathing Cardiovascular: Rate/Rhythm: + tachycardic Gastrointestinal (Abdomen): Inspection/Auscultation: abdomen normal to inspection and normal bowel sounds Percussion/Palpation: + abdomen tender (LLQ ) and abdomen soft; no guarding and abdomen not rigid Rectal Exam: normal visual inspection of rectum; no hemorrhoids Musculoskeletal: Extremities: extremities normal to inspection boot on LLE Neurologic: PERRL, EOMI, accommodation nl, no face palsy, no dysarthria Psychiatric: A+Ox3, euthymic affect Results & Data ([facility]) Vital Signs (Past 12 Hours) Vital Signs Temp Pulse Resp BP Pulse Ox 02/16/20 07:49 36.8 C 92 H 18 112/70 94 02/15/20 23:10 36.4 C L 77 16 116/72 96 Laboratory Results - last 24 hr 02/15/20 02/15/20 02/15/20 12:22 12:22 12:22 WBC 12.55 H RBC 4.00 L Hgb 12.8 Hct 39.2 MCV 98.0 MCH 32.0 MCHC 32.7 RDW Std Deviation 49.4 H RDW Coeff of Kristen 13.9 Plt Count 296 MPV 9.8 Immature Gran % (Auto) 0.3 Neut % (Auto) 80.0 Lymph % (Auto) 14.3 [facility] % (Auto) 4.6 Eos % (Auto) 0.6 Baso % (Auto) 0.2 Neut # (Auto) 10.05 H Lymph # (Auto) 1.79 [facility] # (Auto) 0.58 Eos # (Auto) 0.07 Baso # (Auto) 0.02 Immature Gran # (Auto) 0.04 H PT 14.0 H INR 1.3 H APTT 32.8 H PTT Ratio 1.2 Sodium Potassium Chloride Carbon Dioxide Anion Gap BUN Creatinine Est Cr Clr Drug Dosing Est GFR ( Amer) Est GFR (Non-Af Amer) BUN/Creatinine Ratio Glucose POC Glucose Estimat Average Glucose Hemoglobin A1c Calcium Magnesium Total Bilirubin AST ALT Alkaline Phosphatase Troponin I Total Protein Albumin Globulin Albumin/Globulin Ratio POC Stool Occult Blood SARS-CoV-2 Ag (Rapid) Blood Type A Positive Antibody Screen NEGATIVE 02/15/20 02/15/20 02/15/20 12:22 16:50 20:24 WBC RBC Hgb Hct MCV MCH MCHC RDW Std Deviation RDW Coeff of Kristen Plt Count MPV Immature Gran % (Auto) Neut % (Auto) Lymph % (Auto) [facility] % (Auto) Eos % (Auto) Baso % (Auto) Neut # (Auto) Lymph # (Auto) [facility] # (Auto) Eos # (Auto) Baso # (Auto) Immature Gran # (Auto) PT INR APTT PTT Ratio Sodium 137 Potassium 3.7 Chloride 101 Carbon Dioxide 27 Anion Gap 9.0 BUN 16 Creatinine 1.08 Est Cr Clr Drug Dosing 45.8 Est GFR ( Amer) 58.2 Est GFR (Non-Af Amer) 50.2 BUN/Creatinine Ratio 14.6 Glucose 212 H POC Glucose 119 H 149 H Estimat Average Glucose Hemoglobin A1c Calcium 8.7 Magnesium Total Bilirubin 0.8 AST 21 ALT 35 Alkaline Phosphatase 117 Troponin I < 0.015 Total Protein 7.7 Albumin 3.3 L Globulin 4.4 H Albumin/Globulin Ratio 0.7 L POC Stool Occult Blood SARS-CoV-2 Ag (Rapid) Blood Type Antibody Screen 02/15/20 02/15/20 02/15/20 21:43 Unknown Unknown WBC RBC Hgb 12.6 Hct 38.6 MCV MCH MCHC RDW Std Deviation RDW Coeff of Kristen Plt Count MPV Immature Gran % (Auto) Neut % (Auto) Lymph % (Auto) [facility] % (Auto) Eos % (Auto) Baso % (Auto) Neut # (Auto) Lymph # (Auto) [facility] # (Auto) Eos # (Auto) Baso # (Auto) Immature Gran # (Auto) PT INR APTT PTT Ratio Sodium Potassium Chloride Carbon Dioxide Anion Gap BUN Creatinine Est Cr Clr Drug Dosing Est GFR ( Amer) Est GFR (Non-Af Amer) BUN/Creatinine Ratio Glucose POC Glucose Estimat Average Glucose Hemoglobin A1c Calcium Magnesium Total Bilirubin AST ALT Alkaline Phosphatase Troponin I Total Protein Albumin Globulin Albumin/Globulin Ratio POC Stool Occult Blood Positive A SARS-CoV-2 Ag (Rapid) Negative Blood Type Antibody Screen 02/16/20 02/16/20 02/16/20 07:06 07:06 07:06 WBC 9.55 RBC 3.69 L Hgb 11.7 L Hct 36.2 L MCV 98.1 MCH 31.7 MCHC 32.3 RDW Std Deviation 50.2 H RDW Coeff of Kristen 14.0 Plt Count 301 MPV 9.9 Immature Gran % (Auto) Neut % (Auto) Lymph % (Auto) [facility] % (Auto) Eos % (Auto) Baso % (Auto) Neut # (Auto) Lymph # (Auto) [facility] # (Auto) Eos # (Auto) Baso # (Auto) Immature Gran # (Auto) PT INR APTT PTT Ratio Sodium 140 Potassium Chloride 104 Carbon Dioxide 30 Anion Gap 7.0 BUN 11 Creatinine 0.99 Est Cr Clr Drug Dosing 50.0 Est GFR ( Amer) 64.6 Est GFR (Non-Af Amer) 55.7 BUN/Creatinine Ratio 10.7 Glucose 154 H POC Glucose Estimat Average Glucose 180 Hemoglobin A1c 7.9 H Calcium 8.8 Magnesium Total Bilirubin AST ALT Alkaline Phosphatase Troponin I Total Protein Albumin Globulin Albumin/Globulin Ratio POC Stool Occult Blood SARS-CoV-2 Ag (Rapid) Blood Type Antibody Screen 02/16/20 02/16/20 08:01 09:05 WBC RBC Hgb Hct MCV MCH MCHC RDW Std Deviation RDW Coeff of Kristen Plt Count MPV Immature Gran % (Auto) Neut % (Auto) Lymph % (Auto) [facility] % (Auto) Eos % (Auto) Baso % (Auto) Neut # (Auto) Lymph # (Auto) [facility] # (Auto) Eos # (Auto) Baso # (Auto) Immature Gran # (Auto) PT INR APTT PTT Ratio Sodium Potassium 3.5 Chloride Carbon Dioxide Anion Gap BUN Creatinine Est Cr Clr Drug Dosing Est GFR ( Amer) Est GFR (Non-Af Amer) BUN/Creatinine Ratio Glucose POC Glucose 154 H Estimat Average Glucose Hemoglobin A1c Calcium Magnesium 1.7 L Total Bilirubin AST ALT Alkaline Phosphatase Troponin I Total Protein Albumin Globulin Albumin/Globulin Ratio POC Stool Occult Blood SARS-CoV-2 Ag (Rapid) Blood Type Antibody Screen 02/15/2020: CT angiogram of the abdomen pelvis demonstrated 1. Celiac artery stenosis 2. No evidence of superior mesenteric artery stenosis. No evidence of renal artery stenosis 3. No evidence of bowel obstruction. No evidence of free air 4. Normal appendix 5. Pandiverticulosis. No evidence of acute diverticulitis 6. Hyperdense foci within the proximal sigmoid colon and lower rectum. These could represent pre-existing hyperdense enteric contents or acute hemorrhage.
[2020-02-16] MEDS: INSULIN ASPART 100 UNITS/ML 3 ML PEN SC SCH ×3 (11:09→20:48)
[2020-02-16] MEDS ORDERED: Nursing to Pharmacy Communication SCH ×2 (13:00→20:30)
--- NOTE | 2020-02-16 13:16 | Hospitalist Progress Note ---
Date of Service February 16, 2020 Assessment & Plan (1) BRBPR (bright red blood per rectum): Ongoing for several weeks with recent hemorrhoidal banding; however, today it has gotten significantly worse. Ddx includes another hemorrhoid, complication from current band (which ED provider reported is still in place on his exam), or higher bleed such as diverticular bleeding. Last colonoscopy was in [address] Cantrell, and she reports several polyps and divericuli. - Monitor H&H -> Stable at 12 today. - Hold Xarelto and ASA - Surgery consulted given recent procedure - Do not think it is related to the banded hemorrhoid. - Consulted Dr. Cantrell as well - Plan for flex sig today. (2) Incomplete bladder emptying: Follows with Dr. Aguirre in urology for neurogenic bladder. Began straight- cathing 3x/day recently. - Continue straight-cathing - Continue methenamine for UTI ppx (3) Hypertension: BP is 115/70. - Continue metoprolol - Holding triamterene-HCTZ for now; can restart as needed. (4) Diabetes: A1c was 7.2% in 10/2019. - Hold metformin - Sliding scale insulin - Sugars overall controlled ~150. (5) Paroxysmal atrial fibrillation: EKG on admission is quite interesting with lots of spikes that would indicate a pacemaker; however, she does not have a pacemaker, and I believe it is picking up her bladder stimulator. - Hold Xarelto at this time. - Continue metoprolol -> Will double today as she reports more flutter, though rates are overall controlled. (6) CAD (coronary artery disease): No chest pain or indication on EKG of acute ischemia. Troponin was negative on admission. - Continue statin - Hold ASA for now (7) Fibromyalgia: No pain presently. - Continue duloxetine & gabapentin (8) Hypothyroidism: TSH was 1.17 in 10/2019. No signs/symptoms of hypo-/hyperthyroidism. - Continue home Synthroid 75 mcg (9) Gout: No present flare. - Continue allopurinol (10) Osteomyelitis of right foot: In 07/2018. On chronic abx therapy, even when on abx for UTI. - Continue cefadroxil (11) DVT prophylaxis: SCDs - Holding heparin for GI bleed Admission and Anticipated Discharge Date Admission Date: February 15, 2020 Subjective Doing well today. She has seen the blood improve over the last 24 hours and now her stool is essentially back to normal. Reports no fevers/chills, chest pain, shortness of breath, abdominal pain, nausea, or vomiting. Physical Exam Constitutional: WD/WN, vitals as above Eyes: EOM intact bilaterally; no conjunctival abnormality ENMT: external ear and nose normal, oropharynx normal Neck: trachea midline, no thyromegaly normal visual inspection Respiratory: normal respiratory effort, lungs clear to auscultation no respiratory distress Cardiovascular: RRR, no murmur, no edema Gastrointestinal (Abdomen): Inspection/Auscultation: abdomen normal to inspection and normal bowel sounds; abdomen not distended Percussion/Palpation: + abdomen tender (LLQ) and abdomen soft; no guarding and abdomen not rigid Musculoskeletal: no cyanosis or clubbing, extremities motor strength 5/5 Skin: no rashes, warm and dry Neurologic: moves all extremities and awake Psychiatric: Orientation: alert, oriented to person and cooperative Results & Data Results & Data ([facility]) Vital Signs (Past 12 Hours) Vital Signs Temp Pulse Resp BP Pulse Ox 02/16/20 07:49 36.8 C 92 H 18 112/70 94 PG Care Time/CCT Total # of Minutes Spent Total Time Spent with Patient: Total time spent is greater than 50% in coordination of care (as documented) at patient's floor/unit and/or counseling patient: Coding Level of Care Code 64469 Subseq Hosp Care Lvl 3 Diagnoses BRBPR (bright red blood per rectum) K62.5 Incomplete bladder emptying R33.9 Hypertension I10 Diabetes E11.9 Paroxysmal atrial fibrillation I48.0 CAD (coronary artery disease) I25.10 Fibromyalgia M79.7 Hypothyroidism E03.9 Gout M10.9 Osteomyelitis of right foot M86.9 DVT prophylaxis Z29.9
[2020-02-16] MEDS: MINERAL OIL ENEMA 133 ML BTL PR SCH ×2 (14:17→14:32)
--- NOTE | 2020-02-16 14:29 | Anesthesiology Consultation ---
Date of Service February 16, 2020 Assessment & Plan (1) Encounter for pre-operative examination: Chart Review Chart Review: Acceptable Risk for Surgery and Patient NOT seen in Pre Admission Testing covid neg 02/15/2020. Consults Requested none History Surgery Operation Date: 02/16/20 16:30 Proposed Procedures p Flexible Sigmoidoscopy Dr Tamia Cantrell Height/Weight Height: 5 ft 3 in Weight: 82.6 kg Allergies Allergy/AdvReac Type Severity Reaction Status Date / Time tetanus toxoid, adsorbed Allergy Mild LOCALIZED Verified 02/15/20 13:45 REACTION, MADE HER FEEL SICK amoxicillin AdvReac Intermediate "GOT Verified 02/15/20 13:45 C-DIFF" minocycline AdvReac Mild HEADACHES Verified 02/15/20 13:45 tetracycline AdvReac Mild HEADACHES Verified 02/15/20 13:45 Medications Home Medications Medication Instructions Recorded Confirmed Last Taken calcium carbonate-vitamin D3 1 tab PO QAM 02/19/18 02/15/20 02/15/20 [Calcium 500 + D] ferrous sulfate [iron] 325 mg PO QPM 02/19/18 02/15/20 02/14/20 gabapentin 400 mg PO TID 02/19/18 02/15/20 02/15/20 magnesium 250 mg PO HS 02/19/18 02/15/20 02/14/20 multivitamin 1 tab PO QAM 02/19/18 02/15/20 02/15/20 potassium 1 tab PO HS 02/19/18 02/15/20 02/14/20 Neosporin ([id number]) 1 applic TOPICAL DIRECTED 03/12/18 02/15/20 03/11/18 cyanocobalamin-cobamamide [B-12 1,000 mcg SUBLINGUAL QAM 03/12/18 02/15/20 1 04/16/19 Plus] triamcinolone acetonide [Nasacort] 1 spray INTRANASAL QAM 03/12/18 02/15/20 OneTouch Verio test strips #200 ea NS 01/02/19 02/10/20 Unknown lancets 30 gauge #200 ea 01/08/19 02/10/20 Unknown atorvastatin 80 mg tablet 80 mg PO HS #90 tab 03/24/19 02/15/20 02/14/20 prednisone 5 mg tablet 5 mg PO QAM #90 tab 06/02/19 02/15/20 02/15/20 nitroglycerin 0.4 mg sublingual 0.4 mg SUBLINGUAL Q5M PRN #25 tab 09/03/19 02/15/20 Unknown tablet allopurinol 100 mg tablet 100 mg PO QAM #90 tab 09/09/19 02/15/20 02/15/20 methenamine hippurate 1 gram tablet 1 gm PO BID tab 10/14/19 02/15/20 02/15/20 cefadroxil 1 gram tablet 1,000 mg PO QAM 10/20/19 02/15/20 02/15/20 risedronate 150 mg tablet 150 mg PO QAM 10/20/19 02/15/20 02/15/20 Trulicity 1.5 mg/0.5 mL 1.5 mg SQ WEEKLY 90 Days #6 ml NS 10/24/19 02/15/20 02/13/20 subcutaneous pen injector metformin 500 mg tablet 500 mg PO QPM #90 tab 11/03/19 02/15/20 02/15/20 metoprolol succinate 50 mg 50 mg PO HS #180 tab 12/04/19 02/15/20 02/14/20 tablet,extended release 24 hr levothyroxine 75 mcg capsule 75 mcg PO QAM #90 cap 01/19/20 02/15/20 02/15/20 nitrofurantoin 100 mg PO BID #20 cap 01/21/20 02/15/20 02/15/20 monohydrate/macrocrystals 100 mg capsule aspirin 81 mg PO QAM 02/15/20 02/15/20 02/15/20 duloxetine [Cymbalta] 20 mg PO QAM 02/15/20 02/15/20 02/15/20 omeprazole 20 mg PO DAILYBB 02/15/20 02/15/20 02/15/20 rivaroxaban [Xarelto] 20 mg PO QAM 02/15/20 02/15/20 02/15/20 triamterene-hydrochlorothiazid 1 cap PO QAM 02/15/20 02/15/20 02/15/20 valacyclovir 500 mg PO QAM 02/15/20 02/15/20 02/15/20 Active Medications Generic Name Dose Route Start Last Admin Trade Name Freq PRN Reason Stop Dose Admin Allopurinol 100 mg 02/16/20 09:00 02/16/20 08:06 Allopurinol 100 Mg Tab PO 03/17/20 08:59 100 mg QAM DENEEN Administration Atorvastatin Calcium 80 mg 02/15/20 21:00 02/15/20 21:09 Atorvastatin 40 Mg Tab PO 03/16/20 20:59 80 mg HS DENEEN Administration Duloxetine HCl 20 mg 02/16/20 09:00 02/16/20 08:06 Duloxetine Hcl 20 Mg Cap PO 03/17/20 08:59 20 mg QAM DENEEN Administration Gabapentin 400 mg 02/15/20 21:00 02/16/20 12:58 Gabapentin 400 Mg Cap PO 03/16/20 20:59 400 mg TID DENEEN Administration Levothyroxine Sodium 75 mcg 02/16/20 06:30 02/16/20 05:53 Levothyroxine Sodium 75 Mcg Tablet PO 03/17/20 06:29 75 mcg DAILYBB DENEEN Administration Methenamine Hippurate 1 gm 02/15/20 22:00 02/16/20 08:07 Methenamine Hippurate 1 Gm Tab PO 03/16/20 21:59 1 gm BID DENEEN Administration Pantoprazole Sodium 40 mg 02/16/20 06:30 02/16/20 05:53 Pantoprazole 40 Mg Tab PO 03/17/20 06:29 40 mg DAILYBB DENEEN Administration Prednisone 5 mg 02/16/20 09:00 02/16/20 08:05 Prednisone 5 Mg Tab PO 03/17/20 08:59 5 mg QAM DENEEN Administration Valacyclovir HCl 500 mg 02/16/20 09:00 02/16/20 08:08 Valacyclovir Hcl 500 Mg Tablet PO 03/17/20 08:59 500 mg QAM DENEEN Administration Past Medical History Medical History Acquired claw toe of both feet Anemia CHRONIC; BASELINE HGB LOW 11 RANGE PER CHART REVIEW Arthritis CAD (coronary artery disease) CABG X 3 (2014) Callus Charcot's joint of foot in type 2 diabetes mellitus Charcot's joint of right foot 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 Diabetes mellitus, type 2 Fibromyalgia Gout H/O recurrent urinary tract infection Hallux valgus, acquired, bilateral Hemorrhoids, internal, with bleeding History of bronchitis Hyperlipidemia Hypertension Hypothyroidism IBS (irritable bowel syndrome) Incomplete emptying of bladder Left midfoot ulcer Methicillin susceptible Staphylococcus aureus infection Myocardial Infarction 2014 Osteoarthritis Paroxysmal atrial fibrillation Psoriatic arthritis ON CHRONIC PREDNISONE Right foot ulcer Sensorineural hearing loss of both ears Stress incontinence in female Past Family History Family History Mother Family hx of colon cancer Colorectal cancer Cardiac disorder Cancer Hypertension Father Cardiac disorder Hypertension Lung cancer Grandmother (Maternal) Stroke Denies family history of Ovarian cancer Breast cancer Past Surgical History Surgical History Charcot's joint of foot RIGHT FOOT (4 SURGERIES TOTAL) History of adenoidectomy History of ankle surgery LEFT History of bilateral tubal ligation History of bladder repair surgery R/T URINARY LEAKAGE History of cardiac cath 2014= NO STENTS History of cataract surgery RIGHT/LEFT History of colonoscopy History of coronary artery bypass graft CABG X 3 (2014) History of dilatation and curettage History of repair of rotator cuff RIGHT. 03/12/2018. DONE AT [facility]. BLOCK WITH LMA. NO ISSUES. History of surgery BLADDER STIMULATOR IMPLANTED IN BACK- PER PATIENT "NOT CURRENTLY WORKING" (WILL BRING CARD/REMOTE DOS)- OR MADE AWARE* History of tonsillectomy History of tooth extraction History of total knee replacement LEFT shoulder surgery. LMA #4. [place]. No issues. Social History Smoking Status: Never smoker Hx Alcohol Use: No Alcohol type: wine and hard liquor alcohol intake frequency: a few times a month Alcohol Intake Frequency Comment: 1/WEEK Hx Substance Use: No substance use type: does not use Physical Exam Vital Signs Last Vital Signs Temp 36.8 C 02/16/20 07:49 Pulse 92 H 02/16/20 07:49 Resp 18 02/16/20 07:49 BP 112/70 02/16/20 07:49 Pulse Ox 94 02/16/20 07:49 Testing Laboratory Results 02/16/20 07:06 02/16/20 09:05 PT 14.0 Seconds (9.0-12.0) H 02/15/20 12:22 INR 1.3 (0.9-1.1) H 02/15/20 12:22 APTT 32.8 Seconds (21.0-31.0) H 02/15/20 12:22 Hemoglobin A1c 7.9 % (4.5-5.6) H 02/16/20 07:06 Blood Type A Positive 02/15/20 12:22 Antibody Screen NEGATIVE 02/15/20 12:22 02/16/20 02/16/20 12:07 08:01 POC Glucose 163 H 154 H Electrocardiogram Date: 02/15/20 Vent. Rate : 076 BPM Atrial Rate : 075 BPM P-R Int : 156 ms QRS Dur : 078 ms QT Int : 396 ms P-R-T Axes : -15 021 089 degrees QTc Int : 445 ms Poor data quality, interpretation may be adversely affected Normal sinus rhythm Low voltage QRS Nonspecific T wave abnormality Abnormal ECG When compared with ECG of 12-SEP-2018 12:55, Significant artifact is now present Confirmed by Jonny Myers ([id number]) on 02/15/2020 10:34:54 PM
[2020-02-16] MEDS ORDERED: LIDOCAINE HCL 2% 2 ML VIAL/AMP(20MG/ML) INFIL ONE (14:58)
[2020-02-16] MEDS ORDERED: ONDANSETRON INJ 2 MG/ML 2 ML VIAL ONE (14:59)
[2020-02-16] MEDS ORDERED: PROPOFOL IV EMULSION 10 MG/ML 20 ML VIAL IV ONE (14:59)
[2020-02-16] MEDS ORDERED: MIDAZOLAM HCL 1 MG/ML 2ML VIAL ONE (15:02)
--- NOTE | 2020-02-16 15:23 | History & Physical Report ---
Date of Service February 16, 2020 Assessment & Plan Admission and Anticipated Discharge Date Admission Date: February 15, 2020 History of Present Illness Chief Complaint: rectal bleeding Primary Care Provider: Reno Perez MD For flex sig Allergies Allergy/AdvReac Type Severity Reaction Status Date / Time tetanus toxoid, adsorbed Allergy Mild LOCALIZED Verified 02/15/20 13:45 REACTION, MADE HER FEEL SICK amoxicillin AdvReac Intermediate "GOT Verified 02/15/20 13:45 C-DIFF" minocycline AdvReac Mild HEADACHES Verified 02/15/20 13:45 tetracycline AdvReac Mild HEADACHES Verified 02/15/20 13:45 Home Medications Medication Instructions Recorded Confirmed Type calcium carbonate-vitamin D3 1 tab PO QAM 02/19/18 02/15/20 History [Calcium 500 + D] ferrous sulfate [iron] 325 mg PO QPM 02/19/18 02/15/20 History gabapentin 400 mg PO TID 02/19/18 02/15/20 History magnesium 250 mg PO HS 02/19/18 02/15/20 History multivitamin 1 tab PO QAM 02/19/18 02/15/20 History potassium 1 tab PO HS 02/19/18 02/15/20 History Neosporin ([id number]) 1 applic TOPICAL DIRECTED 03/12/18 02/15/20 History cyanocobalamin-cobamamide [B-12 1,000 mcg SUBLINGUAL QAM 03/12/18 02/15/20 History Plus] triamcinolone acetonide [Nasacort] 1 spray INTRANASAL QAM 03/12/18 02/15/20 History OneTouch Verio test strips #200 ea NS 01/02/19 02/10/20 Rx lancets 30 gauge #200 ea 01/08/19 02/10/20 Rx atorvastatin 80 mg tablet 80 mg PO HS #90 tab 03/24/19 02/15/20 Rx prednisone 5 mg tablet 5 mg PO QAM #90 tab 06/02/19 02/15/20 Rx nitroglycerin 0.4 mg sublingual 0.4 mg SUBLINGUAL Q5M PRN #25 tab 09/03/19 02/15/20 Rx tablet allopurinol 100 mg tablet 100 mg PO QAM #90 tab 09/09/19 02/15/20 Rx methenamine hippurate 1 gram tablet 1 gm PO BID tab 10/14/19 02/15/20 History cefadroxil 1 gram tablet 1,000 mg PO QAM 10/20/19 02/15/20 History risedronate 150 mg tablet 150 mg PO QAM 10/20/19 02/15/20 History Trulicity 1.5 mg/0.5 mL 1.5 mg SQ WEEKLY 90 Days #6 ml NS 10/24/19 02/15/20 Rx subcutaneous pen injector metformin 500 mg tablet 500 mg PO QPM #90 tab 11/03/19 02/15/20 Rx metoprolol succinate 50 mg 50 mg PO HS #180 tab 12/04/19 02/15/20 Rx tablet,extended release 24 hr levothyroxine 75 mcg capsule 75 mcg PO QAM #90 cap 01/19/20 02/15/20 Rx nitrofurantoin 100 mg PO BID #20 cap 01/21/20 02/15/20 Rx monohydrate/macrocrystals 100 mg capsule aspirin 81 mg PO QAM 02/15/20 02/15/20 History duloxetine [Cymbalta] 20 mg PO QAM 02/15/20 02/15/20 History omeprazole 20 mg PO DAILYBB 02/15/20 02/15/20 History rivaroxaban [Xarelto] 20 mg PO QAM 02/15/20 02/15/20 History triamterene-hydrochlorothiazid 1 cap PO QAM 02/15/20 02/15/20 History valacyclovir 500 mg PO QAM 02/15/20 02/15/20 History Past Med/Surg History Medical History Acquired claw toe of both feet Anemia CHRONIC; BASELINE HGB LOW 11 RANGE PER CHART REVIEW Arthritis CAD (coronary artery disease) CABG X 3 (2014) Callus Charcot's joint of foot in type 2 diabetes mellitus Charcot's joint of right foot 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 Diabetes mellitus, type 2 Fibromyalgia Gout H/O recurrent urinary tract infection Hallux valgus, acquired, bilateral Hemorrhoids, internal, with bleeding History of bronchitis Hyperlipidemia Hypertension Hypothyroidism IBS (irritable bowel syndrome) Incomplete emptying of bladder Left midfoot ulcer Methicillin susceptible Staphylococcus aureus infection Myocardial Infarction 2014 Osteoarthritis Paroxysmal atrial fibrillation Psoriatic arthritis ON CHRONIC PREDNISONE Right foot ulcer Sensorineural hearing loss of both ears Stress incontinence in female Surgical History Charcot's joint of foot RIGHT FOOT (4 SURGERIES TOTAL) History of adenoidectomy History of ankle surgery LEFT History of bilateral tubal ligation History of bladder repair surgery R/T URINARY LEAKAGE History of cardiac cath 2015= NO STENTS History of cataract surgery RIGHT/LEFT History of colonoscopy History of coronary artery bypass graft CABG X 3 (2014) History of dilatation and curettage History of repair of rotator cuff RIGHT. 03/12/2018. DONE AT [facility]. BLOCK WITH LMA. NO ISSUES. History of surgery BLADDER STIMULATOR IMPLANTED IN BACK- PER PATIENT "NOT CURRENTLY WORKING" (WILL BRING CARD/REMOTE DOS)- OR MADE AWARE* History of tonsillectomy History of tooth extraction History of total knee replacement LEFT Family History Mother Family hx of colon cancer Colorectal cancer Cardiac disorder Cancer Hypertension Father Cardiac disorder Hypertension Lung cancer Grandmother (Maternal) Stroke Denies family history of Ovarian cancer Breast cancer Social History Smoking Status: Never smoker Second Hand Exposure: No; Hx Alcohol Use: No Hx Substance Use: No Preferred Language: [place] Communication Ability: Effective Visual Impairment: No Limitations Hearing Ability: Hard of Hearing Cloth Colors Examiner Required: No Beliefs That Will Affect Care: None marital status: Current Living Situation: Family current occupational status: retired Other Information That Helps Us Care for You: No Feels Safe at Home: Yes Safety Concerns: Feels Safe At This Time caffeine: No Assistive Devices: Walker Physical Exam Constitutional: well developed and well nourished Respiratory: normal respiratory effort Cardiovascular: Rate/Rhythm: + tachycardic and + irregularly irregular Gastrointestinal (Abdomen): Percussion/Palpation: abdomen soft Results & Data ([facility]) Vital Signs (Past 12 Hours) Vital Signs Temp Pulse Pulse Resp BP Pulse Ox 02/16/20 15:06 37.0 C 154 H 18 119/82 94 02/16/20 07:49 36.8 C 92 H 18 112/70 94 Code Status & VTE Plan VTE Prophylaxis Plan VTE Prophylaxis will be ordered: Yes
[2020-02-16] MEDS ORDERED: SODIUM CHLORIDE 0.9% 1000ML 1,000 ML IV SCH (15:30)
--- NOTE | 2020-02-16 16:00 | GI REPORT ---
Patient Name: Nadia Andrews Procedure Date: 02/16/2020 3:01 PM Date of : 1945 Admit Type: Inpatient Age: 74 Gender: Female Attending MD: Josse Cantrell MD Procedure: Flexible Sigmoidoscopy Providers: Josse Cantrell MD Referring MD: Alfredito Jones Md Indications: Hematochezia Medicines: Propofol total dose 75 mg IV, Lidocaine 80 mg IV, Midazolam 2 mg IV, Neosynephrine 700 mcg IV, Esmolol 80 mg IV Complications: No immediate complications. Estimated blood loss: None. Estimated Blood Loss: Estimated blood loss: none. Procedure: Pre-Anesthesia Assessment: - Prior to the procedure, a History and Physical was performed, and patient medications, allergies and sensitivities were reviewed. The patient's tolerance of previous anesthesia was reviewed. - The risks and benefits of the procedure and the sedation options and risks were discussed with the patient. All questions were answered and informed consent was obtained. After obtaining informed consent, the endoscope was passed under direct vision. Throughout the procedure, the patient's blood pressure, pulse, and oxygen saturations were monitored continuously. The Colonoscope was introduced through the anus and advanced to 40 cm from the anal verge. The flexible sigmoidoscopy was accomplished without difficulty. The patient tolerated the procedure well. The quality of the bowel preparation was fair. Findings: The perianal and digital rectal examinations were normal. Many small and large-mouthed diverticula were found in the sigmoid colon. Hematin (altered blood/ffxcwi-xprhup-rclo material) was found in the rectum. A single (solitary) fifteen mm ulcer from prior banding was found in the distal rectum. No bleeding was present. Stigmata of recent bleeding were present. There was no blood seen above the rectum. No evidence of ischemia. Impression: - Preparation of the colon was fair. - Diverticulosis in the sigmoid colon. - Blood in the rectum. - A single (solitary) ulcer in the distal rectum. - No specimens collected. Recommendation: - Return patient to hospital [facility] for ongoing care. Josse Cantrell M.D. Josse Cantrell MD 02/16/2020 3:59:40 PM This report has been signed electronically. Note Initiated On: 02/16/2020 3:01 PM Number of Addenda: 0 I attest to the content of the Intraoperative Record and orders documented therein, exceptions below {[id number]}
[2020-02-16] MEDS ORDERED: PHENYLEPHRINE 100MCG/ML 5ML SYR ONE (16:02)
[2020-02-16] MEDS ORDERED: ESMOLOL HCL INJ 10 MG/ML 10ML VIAL IV ONE (16:02)
--- NOTE | 2020-02-16 16:05 | Anesthesiology Progress Note ---
Date of Service February 16, 2020 Anesthesia Post Procedure Vital Signs Vital Signs: Temp Pulse Pulse Resp BP Pulse Ox 02/16/20 15:06 37.0 C 154 H 18 119/82 94 02/16/20 07:49 36.8 C 92 H 18 112/70 94 02/15/20 23:10 36.4 C L 77 16 116/72 96 02/15/20 21:07 80 133/74 02/15/20 16:40 36.9 C 80 16 121/81 98 Pain Intensity Lower Abdomen: Pain Intensity: 3 Transfer of Care Handoff Completed per policy Notes Mental Status: alert / awake / arousable and participated in evaluation Patient Amnestic to Procedure: Yes Nausea / Vomiting: adequately controlled Pain: adequately controlled Airway Patency, RR, SpO2: stable & adequate BP & HR: see Notes below Hydration State: stable & adequate Anesthetic Complications: no major complications apparent and Pt Satisfied with anesthetic care Notes: pt treated with esmolol and phenylephrine in procedure room. tolerated well. pt awake and conversant afterwards, . to go to tele after and primary team to see and evaluate pt on floor
--- NOTE | 2020-02-16 16:32 | Progress Notes ---
DATE: 02/16/2020 ADDENDUM This addendum is to the consult note on the patient done by Monica Montez. I reviewed the patient's chart, examined the patient, interviewed the patient and did a flexible sigmoidoscopy. The patient presented with rectal bleeding 2 weeks after having hemorrhoidal banding. The patient was passing bright red blood and clots. Her anticoagulation has been held and the bleeding has subsided. She underwent a flexible sigmoidoscopy today with sedation. The patient tolerated the procedure well, but she was in atrial flutter prior to having the procedure and will be transferred to telemetry. The findings on the sigmoidoscopy show that there was no ischemia or blood coming above the rectum, exam was carried to 40 cm, the prep was fair. She had multiple sigmoid diverticula, but no blood. There was brown solid stool in the sigmoid. The rectum showed a 15 mm shallow ulcer in the distal rectum from the prior banding. The banding itself has dislodged and is gone. There are some visible vessels in the base of the ulcer which is undoubtedly the point source for her rectal bleeding, which has stopped. IMPRESSION: The patient has rectal bleeding from the previous banding site for her hemorrhoid. There are no signs of ischemia or other source of bleeding up to 40 cm of the colon. At this point, I will defer to her other doctors as to when to resume her anticoagulation, I would recommend that she continue to keep her stools soft with probably MiraLax to prevent straining or passage of hard stools, which could provoke more bleeding.
[2020-02-16] MEDS ORDERED: METOPROLOL TARTRATE 1 MG/ML VIAL IV PRN (17:15)
[2020-02-16] MEDS ORDERED: INSULIN ASPART 100 UNITS/ML 3 ML PEN SC SCH (18:00)
[2020-02-16] MEDS: ATORVASTATIN 40 MG TAB PO SCH (20:26)
[2020-02-16] MEDS: METOPROLOL SUCC 50MG EXT REL TAB PO SCH (20:26)
[2020-02-16] MEDS: METOPROLOL TARTRATE 1 MG/ML VIAL IV PRN ×2 (21:25→21:53)
--- NOTE | 2020-02-17 06:23 | Electrocardiogram Report ---
Test Reason : Blood Pressure : / mmHG Vent. Rate : 127 BPM Atrial Rate : 337 BPM P-R Int : 000 ms QRS Dur : 084 ms QT Int : 326 ms P-R-T Axes : 000 036 147 degrees QTc Int : 473 ms Atrial flutter with variable A-V block Nonspecific ST and T wave abnormality Abnormal ECG When compared with ECG of 15-FEB-2020 12:49, Atrial flutter has replaced Sinus rhythm Vent. rate has increased BY 51 BPM Artifact has improved Confirmed by Jonny Myers ([id number]) on 02/17/2020 6:22:44 AM Referred By: REFERRED SELF Confirmed By:Jonny Myers
[2020-02-17] MEDS: LEVOTHYROXINE SODIUM 75 MCG TABLET PO SCH (06:28)
[2020-02-17] MEDS: PANTOprazole 40 MG TAB PO SCH (06:28)
[2020-02-17 07:04] LABS: Hematocrit (blood only) 35.5 % (37-47); Hemoglobin 11.4 g/dL (12.0-16.0); Mean Corpuscular Hemoglobin 31.7 pg (25-34); Mean Corpuscular Hgb Conc 32.1 g/dL (32-36); Mean Corpuscular Volume 98.6 fL (80-100); Mean Platelet Volume 9.7 fL (7.4-10.4); Platelet Count 291 K/uL (130-400); RDW Coefficient of Variation 14.1 % (11.5-14.5); RDW Standard Deviation 50.3 fL (36.4-46.3)
[2020-02-17 07:33] LABS: BUN Creatinine Ratio 15.9 (10-20); Creatinine Clr Calc Pharmacy 50.5 ml/min; Est GFR (African American) 65.4; Est GFR (Non-African American) 56.4; Magnesium 1.9 mg/dl (1.8-2.4); Potassium 3.8 mmol/L (3.5-5.1)
--- NOTE | 2020-02-17 07:49 | Surgery Progress Note ---
Date of Service February 17, 2020 Assessment & Plan (1) BRBPR (bright red blood per rectum): Flex sigmoid findings reviewed Patient reports no further BRBPR Hbg stable at 11.4 She is tolerating a regular diet Would recommend holding blood thinners for at least 4 days if able Can be discharged from our standpoint when cleared by medicine We will sign off as patient has improved, please call with any questions/concerns Pt seen and examined with Dr. Ellsworth Admission and Anticipated Discharge Date Admission Date: February 15, 2020 Subjective Patient states she is feeling well. Reports no further blood per rectum after seeing her yesterday. Had a very small BM, but not much since after flex sig. She is tolerating a diet without nausea/vomiting. Reports mild LLQ pain. Physical Exam Physical Exam: awake/alert Constitutional: well developed and well nourished; no acute distress Respiratory: normal respiratory effort Results & Data ([facility]) Vital Signs (Past 12 Hours) Vital Signs Temp Pulse Pulse Resp BP Pulse Ox 02/17/20 03:46 36.7 C 109 H 17 130/78 95 02/16/20 23:45 36.5 C 68 20 103/51 L 95 02/16/20 21:52 122 H 104/55 L 02/16/20 21:24 125 H 102/53 L 02/16/20 20:25 116 H 114/65 Findings: The perianal and digital rectal examinations were normal. Many small and large-mouthed diverticula were found in the sigmoid colon. Hematin (altered blood/quzbjg-vaaorr-kjuu material) was found in the rectum. A single (solitary) fifteen mm ulcer from prior banding was found in the distal rectum. No bleeding was present. Stigmata of recent bleeding were present. There was no blood seen above the rectum. No evidence of ischemia. Impression: - Preparation of the colon was fair. - Diverticulosis in the sigmoid colon. - Blood in the rectum. - A single (solitary) ulcer in the distal rectum. - No specimens collected. Recommendation: - Return patient to hospital [facility] for ongoing care. Josse Cantrell M.D. Josse Cantrell MD 02/16/2020 3:59:40 PM PG Care Time/CCT Total # of Minutes Spent Total Time Spent with Patient: Total time spent is greater than 50% in coordination of care (as documented) at patient's floor/unit and/or counseling patient: Coding Level of Care Code 28113 Subseq Hosp Care Lvl 1 Diagnoses BRBPR (bright red blood per rectum) K62.5
[2020-02-17] MEDS: MAGNESIUM SULFATE / D5W 1 GM/100 ML BAG IV SCH ×2 (08:26→10:13)
--- NOTE | 2020-02-17 08:44 | Gastroenterology Progress Note ---
Date of Service February 17, 2020 Assessment & Plan (1) BRBPR (bright red blood per rectum): Patient is doing well this morning. No further episodes of rectal bleeding. History of IBS with constipation. Discussed use of stool softener and MiraLAX. Patient provided with office visit per her request for follow-up of her chronic constipation. Plan is discharge today. Anticoagulation management deferred to medicine for management. Please refer to supervising physician addendum for further recommendations. Admission and Anticipated Discharge Date Admission Date: February 15, 2020 Subjective 02/16/2020: Flexible sigmoidoscopy performed by Dr. Cantrell demonstrated no ischemia or blood coming above the rectum, exam was carried to 40 cm. Multiple sigmoid diverticula without blood noted. Rectum demonstrated a 15 mm shallow ulcer from prior banding and banding was dislodged. Visible vessels at base of ulcer. No active bleeding. Patient is awake and alert this morning, sitting upright in bed conversing with hospitalist. She is feeling well this morning. She reports no further rectal bleeding. She denies nausea or vomiting. She has history of IBS with constipation. Lengthy discussion with hospitalist and myself regarding stool softeners and use of MiraLAX. Review of Systems Review of Systems: All systems reviewed & are unremarkable except as noted in Subjective Physical Exam Constitutional: WD/WN, vitals as above + obese Eyes: no eyelid abnormality, no conjunctival abnormality and no scleral abnormality ENMT: Ears: no external ear abnormality Nose: no external nose abnormality Neck: normal visual inspection and trachea midline Respiratory: normal respiratory effort; no respiratory distress and no labored breathing Cardiovascular: Rate/Rhythm: regular rate and regular rhythm Gastrointestinal (Abdomen): Inspection/Auscultation: abdomen normal to inspection and normal bowel sounds Percussion/Palpation: + abdomen tender (mild LLQ ) and abdomen soft; no guarding and abdomen not rigid Musculoskeletal: Extremities: extremities normal to inspection Neurologic: PERRL, EOMI, accommodation nl, no face palsy, no dysarthria Psychiatric: A+Ox3, euthymic affect Results & Data ([facility]) Vital Signs (Past 12 Hours) Vital Signs Temp Pulse Pulse Resp BP Pulse Ox 02/17/20 08:08 36.5 C 78 18 112/73 94 02/17/20 03:46 36.7 C 109 H 17 130/78 95 02/16/20 23:45 36.5 C 68 20 103/51 L 95 02/16/20 21:52 122 H 104/55 L 02/16/20 21:24 125 H 102/53 L Abnormal Lab Results 02/16/20 02/16/20 02/16/20 07:06 09:05 09:36 WBC RBC Hgb Hct MCV MCH MCHC RDW Std Deviation RDW Coeff of Kristen Plt Count MPV Sodium Potassium 3.5 Chloride Carbon Dioxide Anion Gap BUN Creatinine Est Cr Clr Drug Dosing Est GFR ( Amer) Est GFR (Non-Af Amer) BUN/Creatinine Ratio Glucose POC Glucose Estimat Average Glucose 180 Hemoglobin A1c 7.9 H Lactate 3.6 H* Calcium Magnesium 1.7 L 02/16/20 02/16/20 02/16/20 11:25 12:07 17:19 WBC RBC Hgb Hct MCV MCH MCHC RDW Std Deviation RDW Coeff of Kristen Plt Count MPV Sodium Potassium Chloride Carbon Dioxide Anion Gap BUN Creatinine Est Cr Clr Drug Dosing Est GFR ( Amer) Est GFR (Non-Af Amer) BUN/Creatinine Ratio Glucose POC Glucose 163 H 117 H Estimat Average Glucose Hemoglobin A1c Lactate 3.9 H* Calcium Magnesium 02/16/20 02/17/20 02/17/20 20:31 06:29 06:29 WBC 7.40 RBC 3.60 L Hgb 11.4 L Hct 35.5 L MCV 98.6 MCH 31.7 MCHC 32.1 RDW Std Deviation 50.3 H RDW Coeff of Kristen 14.1 Plt Count 291 MPV 9.7 Sodium 141 Potassium 3.8 Chloride 106 Carbon Dioxide 29 Anion Gap 6.0 BUN 16 Creatinine 0.98 Est Cr Clr Drug Dosing 50.5 Est GFR ( Amer) 65.4 Est GFR (Non-Af Amer) 56.4 BUN/Creatinine Ratio 15.9 Glucose 129 H POC Glucose 160 H Estimat Average Glucose Hemoglobin A1c Lactate Calcium 9.0 Magnesium 1.9 02/17/20 07:44 WBC RBC Hgb Hct MCV MCH MCHC RDW Std Deviation RDW Coeff of Kristen Plt Count MPV Sodium Potassium Chloride Carbon Dioxide Anion Gap BUN Creatinine Est Cr Clr Drug Dosing Est GFR ( Amer) Est GFR (Non-Af Amer) BUN/Creatinine Ratio Glucose POC Glucose 139 H Estimat Average Glucose Hemoglobin A1c Lactate Calcium Magnesium
[2020-02-17] MEDS: GABAPENTIN 400 MG CAP PO SCH (08:58)
[2020-02-17] MEDS: METOPROLOL SUCC 50MG EXT REL TAB PO SCH (08:58)
[2020-02-17] MEDS: INSULIN ASPART 100 UNITS/ML 3 ML PEN SC SCH ×2 (08:58→12:07)
[2020-02-17] MEDS: valACYclovir HCL 500 MG TABLET PO SCH (08:59)
[2020-02-17] MEDS: allopurinoL 100 MG TAB PO SCH (08:59)
[2020-02-17] MEDS: predniSONE 5 MG TAB PO SCH (08:59)
[2020-02-17] MEDS: DULoxetine HCL 20 MG CAP PO SCH (08:59)
[2020-02-17] MEDS: METHENAMINE HIPPURATE 1 GM TAB PO SCH (08:59)
--- NOTE | 2020-02-17 17:06 | Discharge Summary ---
Date of Service February 17, 2020 Admission HPI Per Admitting Provider For flex sig Principal Diagnosis Rectal ulcer bleed Discharge Exam Constitutional WD/WN, vitals as above Eyes EOM intact bilaterally; no conjunctival abnormality ENMT external ear and nose normal, oropharynx normal Neck trachea midline, no thyromegaly normal visual inspection Respiratory normal respiratory effort, lungs clear to auscultation no respiratory distress Cardiovascular RRR, no murmur, no edema Gastrointestinal (Abdomen) Inspection/Auscultation: abdomen normal to inspection and normal bowel sounds; abdomen not distended Percussion/Palpation: + abdomen tender (LLQ) and abdomen soft; no guarding and abdomen not rigid Musculoskeletal no cyanosis or clubbing, extremities motor strength 5/5 Skin no rashes, warm and dry Neurologic moves all extremities and awake Psychiatric Orientation: alert, oriented to person and cooperative Discharge Data Allergies Allergy/AdvReac Type Severity Reaction Status Date / Time tetanus toxoid, adsorbed Allergy Mild LOCALIZED Verified 02/15/20 13:45 REACTION, MADE HER FEEL SICK amoxicillin AdvReac Intermediate "GOT Verified 02/15/20 13:45 C-DIFF" minocycline AdvReac Mild HEADACHES Verified 02/15/20 13:45 tetracycline AdvReac Mild HEADACHES Verified 02/15/20 13:45 Consultations 02/15/20 13:53 ED Decision to Admit Stat 02/15/20 16:23 Consult General Surgery Routine 02/15/20 21:55 Consult Gastroenterology Routine Procedures Performed Operation Date: 02/16/20 16:30 Actual Procedures p Flexible Sigmoidoscopy(Not Applicable) - Josse Canrtell Ordered Studies 02/15/20 12:13 CT angio abdomen pelvis w con Stat Hospital Course (1) BRBPR (bright red blood per rectum): Ongoing for several weeks with recent hemorrhoidal banding; however, today it has gotten significantly worse. - Rectal ulcer noted on flex sigmoidoscopy on 02/15 at the site of the prior banding with signs of recent bleeding. - Off Xarelto and ASA, the bleeding self-resolved. Per surgery and GI, ASA & Xarelto held for 4 more days. Will restart Xarelto on Sunday, then ASA after one additional week. Discussed how to prevent straining with defecation. (2) Paroxysmal atrial fibrillation: EKG on admission is quite interesting with lots of spikes that would indicate a pacemaker; however, she does not have a pacemaker, and I believe it is picking up her bladder stimulator. - Held Xarelto at this time. - Had prolonged episode of atrial flutter which I think is the first for flutter (known history of afib). EKG was pretty clear to me. She converted to sinus on her own and remained in sinus on discharge. However, she has symptoms (fatigue and shortness of breath) with the flutter, so I encouraged her to follow up with Dr. Oropeza in 1-2 weeks. If she has more episodes of flutter, she could benefit from anti-arrhythmic vs. ablation potentially, and we discussed this. (3) Incomplete bladder emptying: Follows with Dr. Aguirre in urology for neurogenic bladder. Began straight- cathing 3x/day recently. - Continue straight-cathing - Continue methenamine for UTI ppx (4) Hypertension: BP is 115/70. - Continue metoprolol - Held triamterene-HCTZ for now; can restart as needed as outpatient. (5) Diabetes: A1c was 7.2% in 10/2019. - Hold metformin - Sliding scale insulin - Sugars overall controlled ~150. (6) CAD (coronary artery disease): No chest pain or indication on EKG of acute ischemia. Troponin was negative on admission. - Continue statin - Hold ASA for 1 week. (7) Fibromyalgia: No pain presently. - Continue duloxetine & gabapentin (8) Hypothyroidism: TSH was 1.17 in 10/2019. No signs/symptoms of hypo-/hyperthyroidism. - Continue home Synthroid 75 mcg (9) Gout: No present flare. - Continue allopurinol (10) Osteomyelitis of right foot: In 07/2018. On chronic abx therapy, even when on abx for UTI. - Continue cefadroxil (11) DVT prophylaxis: SCDs - Holding heparin for GI bleed Total Time Total Time Spent Total Time Spent (In Minutes): 35 Discharge Plan Discharge Items Patient Disposition: Home - Self-Care Reason For Visit: LOWER GI BLEED Discharge Diagnosis: Rectal bleed from hemorrhoid banding site Activity: Resume your previous activity Non-emergency contact: Primary Care Provider, Surgeon and Cipher Expert Call non-emergency contact if: your symptoms worsen Follow-up/Referrals: Aleks Oropeza MD [Physician] - 02/23/20 3:00 pm (Please see Dr. Oropeza in 1-2 weeks to discuss your atrial fibrillation/atrial flutter.) Reno Perez MD [Primary Care Provider] - 02/27/20 9:30 am Ori Ellsworth MD [Surgeon] - (Please see Dr. Ellsworth with any further bleeding. please call Dr. Ellsworth's office for a follow up apt) Diet: Carb Consistent or DM2 and Heart Healthy Addtl Attending Provider Instructions: Ms. Andrews, You were admitted for a rectal bleed. The banding site of your hemorrhoid had a small ulcer and still a few very small blood vessels which likely was the site of bleeding. Without your aspirin and Xarelto, the bleeding stopped all together. Please hold your aspirin and Xarelto for now. Restart the Xarelto on Sunday, February 20. This will give the rectal area time to heal. Please use Colace as we discussed to keep your stools soft. You should not have to strain to help pass the stool. Taking your iron supplement once every other day may make it easier to pass stool. You may need to combine the Colace and iron to help even out BMs. Please restart your aspirin on February 23. 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 Please see Dr. Oropeza in the next week or two. You had atrial fibrillation after your surgery and on and off since then. Now you are having atrial flutter which is a cousin of atrial fibrillation. However, it can be treated with different medications and even a procedure that can sometimes stop it from coming back. T his is worth speaking with Dr. Oropeza about, especially if your heart is in more flutter often. We did increase your metoprolol to twice a day which Dr. Oropeza had recommended. In the hospital, we didn't give your final BP medication because your BP was fine in the hospital. Dr. Oropeza may have you restart this. Pending Studies at Discharge: No Stand-Alone Forms: [email or web address], Smoking Cessation Medications and DC Order Prescriptions: Continued (DME) OneTouch Verio test strips strip See Dose Instructions .ROUTE .MEDSUPPLY Qty: 200 RF: 0 (DME) lancets [OneTouch Delica Lancets] 30 gauge misc See Dose Instructions .ROUTE .MEDSUPPLY Qty: 200 RF: 3 atorvastatin 80 mg tablet 80 mg PO HS Qty: 90 RF: 3 prednisone 5 mg tablet 5 mg PO QAM Qty: 90 RF: 3 nitroglycerin [Nitrostat] 0.4 mg tablet, sublingual 0.4 mg Sublingual Q5M PRN (Reason: Chest Pain) Qty: 25 RF: 6 allopurinol 100 mg tablet 100 mg PO QAM Qty: 90 RF: 3 Trulicity 1.5 mg/0.5 mL pen injector 1.5 mg SQ WEEKLY 90 Days Qty: 6 RF: 3 metformin 500 mg tablet 500 mg PO QPM Qty: 90 RF: 3 levothyroxine 75 mcg capsule 75 mcg PO QAM Qty: 90 RF: 3 nitrofurantoin monohyd/m-cryst [Macrobid] 100 mg capsule 100 mg PO BID Qty: 20 RF: 1 methenamine hippurate 1 gram tablet 1 gm PO BID RF: 0 risedronate 150 mg tablet 150 mg PO QAM RF: 0 cefadroxil 1 gram tablet 1,000 mg PO QAM RF: 0 multivitamin Tablet 1 tab PO QAM RF: 0 gabapentin 400 mg Capsule 400 mg PO TID RF: 0 potassium 99 mg Tablet 1 tab PO HS RF: 0 magnesium 250 mg Tablet 250 mg PO HS RF: 0 calcium carbonate-vitamin D3 [Calcium 500 + D] 500 mg(1,250mg) -200 unit T ablet 1 tab PO QAM RF: 0 cyanocobalamin-cobamamide [B-12 Plus] 5,000-100 mcg Tablet, Sublingual 1,000 mcg sublingual QAM RF: 0 triamcinolone acetonide [Nasacort] 55 mcg Aerosol,[place] 1 spray INTRANASAL QAM RF: 0 Neosporin (hmh-[id number]-[id number]) 3.5-400-5,000 [id number] Ointment In Packet 1 applic TOPICAL DIRECTED RF: 0 aspirin 81 mg Tablet,Delayed Release (Dr/Ec) 81 mg PO QAM RF: 0 valacyclovir 500 mg tablet 500 mg PO QAM RF: 0 omeprazole 20 mg capsule,delayed release(DR/EC) 20 mg PO DAILYBB RF: 0 duloxetine [Cymbalta] 20 mg capsule,delayed release(DR/EC) 20 mg PO QAM RF: 0 Xarelto 20 mg tablet 20 mg PO QAM RF: 0 Changed metoprolol succinate 50 mg tablet extended release 24 hr 50 mg PO BID Qty: 180 RF: 3 ferrous sulfate [iron] 325 mg (65 mg iron) Tablet 325 mg PO Q2D Qty: 0 RF: 0 Discontinued triamterene-hydrochlorothiazid 37.5-25 mg capsule 1 cap PO QAM RF: 0 Discharge Orders: Discharge Order (Routine); Ordered 02/17/20 Ordered By: Alfredito Castellano/Other Patient Handouts: Bleeding Gastrointestinal, AFL/Afib, Managing T ype 2 Diabetes, Treating Constipation, Understanding Atrial Fibrillation Admission Data Admit Date/Time: 02/15/20 14:14 Attending Provider: Alfredito Jones Admit Provider: Alfredito Jones Primary Care Provider: Reno Perez Other Providers: Alfredito Jones ; Dwight Maguire ; Josse Cantrell Other Interventions: Discharge Summary Assessment (RN) Last Done: 02/17/20 11:35 Coding Level of Care Code 77702 OBS Care - Discharge Diagnoses BRBPR (bright red blood per rectum) K62.5 Paroxysmal atrial fibrillation I48.0 Incomplete bladder emptying R33.9 Hypertension I10 Diabetes E11.9 CAD (coronary artery disease) I25.10 Fibromyalgia M79.7 Hypothyroidism E03.9 Gout M10.9 Osteomyelitis of right foot M86.9 DVT prophylaxis Z29.9
== END 2020-02-17 13:34 | disposition home or self-care (01) ==
LOC: ED 11:37 → 3N 11:37 → 1E 02-16 16:15 → 2S 02-16 16:16

== ENCOUNTER 2021-10-18 15:28 | Inpatient (IN) ==
--- NOTE | 2021-10-18 15:34 | ED Triage Note ---
Date of Service October 18, 2021 History of Present Illness This patient was briefly evaluated while in triage. An abbreviated physical exam was performed. This patient is a 76-year-old Female with past medical history of UTI who does self-cath per Dr. Aguirre who presents to the ED for evaluation of dark, bloody urine in the cath last night. Same thing this morning. LLQ pain. No fevers. Currently on cefodroxil. Physical Exam VITALS: Vitals are noted on the nurse's note and reviewed by myself. GENERAL: This is a 76 year old white female, in no acute distress, nondiaphoretic, well-developed well-nourished. SKIN: No rashes, edema, erythema HEAD: Normocephalic atraumatic. NECK: No JVD. LUNGS: No retractions or accessory muscle use. MUSCULOSKELETAL: Pt. presents in a wheelchair. Orthotic device on RLE. NEURO: Patient was alert and oriented to person place and time. No focal neurological deficits. Initial orders for labs and / or imaging were placed and patient was placed in the waiting area until a bed is available. Please see further documentation for the full ED course.
--- NOTE | 2021-10-18 16:26 | CT Scan Report ---
CT abd pelvis wo con CLINICAL HISTORY: Hematuria, LLQ pain COMPARISON STUDY: 02/15/2020 CT DOSE: 789.42 mGy.cm TECHNIQUE: Standard CT of the Abdomen and Pelvis was performed without IV contrast. The patient did not receive oral contrast. A dose lowering technique was utilized adhering to the principles of VALERIE Arriaga. FINDINGS: Lung base: Chronic scarring is present the lung bases, right greater than left. The lung bases are ot herwise clear. Abdominal cavity: There is no evidence for abdominal mass, adenopathy or ascites. Liver: There is mild hepatomegaly with diffuse fatty infiltration of the liver again seen.. Spleen: The spleen is homogeneous in attenuation on these limited noncontrast images. Pancreas: The pancreas is homogeneous in attenuation on these limited noncontrast images. Gall Bladder: The gallbladder is well distended with suspicion of sludge versus small stones along th e dependent portion of gallbladder. If indicated clinically, gallbladder ultrasound could be obtained for further evaluation. Adrenal glands: The adrenal glands are normal in size and attenuation on these limited noncontrast im ages. Kidneys: The kidneys are homogeneous in attenuation on these limited noncontrast images. There is no evidence for gross renal mass, calculus or hydronephrosis bilaterally. There is evidence for renal va scular calcification bilaterally. Bowel: There is extensive sigmoid diverticulosis with pandiverticulosis present throughout the remain magali of the colon. There is mucosal thickening present throughout the sigmoid colon. However, no peris igmoidal inflammatory changes or definite CT evidence for diverticulitis is seen. The bowel loops are normally placed within the abdomen and pelvis without evidence for dilatation or obstruction. There is no evidence for mass lesion. There are no inflammatory changes present. There is no evidence for free air. There is evidence for a normal appendix in the right lower quadrant. Bladder: There is gross distention of the bladder with no evidence for focal bladder wall thickening, calculus or diverticulum. : There is no evidence for pelvic mass or adenopathy. Uterus is atrophic with calcified fibroids pr esent. Vasculature: There is no evidence for focal aneurysmal dilatation of the abdominal aorta. Atheroscler otic calcification is present. Osseous structures: There is no acute osseous pathology. Degenerative changes are seen within the spi ne. IMPRESSION: 1. There is again pandiverticulosis with extensive diverticulosis of the sigmoid colon. While there i s mucosal thickening present, no perisigmoidal inflammatory changes or evidence for acute diverticuli tis is seen. 2. No other evidence for acute intra-abdominal or pelvic abnormality on these limited noncontrast santy ges. 3. Renal vascular calcification with otherwise negative noncontrast CT of the kidneys. 4. Gross distention of the urinary bladder with no focal abnormality identified. 5. Additional nonacute findings are delineated above. ACT 112: Negative or not required by law. Electronically signed by: Anival Mcgill M.D. 10/18/2021 4:25 PM
[2021-10-18 16:43] LABS: Basophils # (auto) 0.08 K/uL (0-0.2); Basophils % (auto) 0.8 %; Eosinophils # (auto) 0.16 K/uL (0-0.50); Eosinophils % (auto) 1.5 %; Hematocrit (blood only) 39.5 % (34.1-44.9); Immature Granulocytes # (auto) 0.11 K/uL (0.00-0.02); Immature Granulocytes % (auto) 1.1 %; Lymphocytes # (auto) 1.98 K/uL (1.2-3.4); Mean Corpuscular Hemoglobin 31.2 pg (25.0-34.0); Mean Corpuscular Hgb Conc 32.9 g/dL (32.0-36.0); Mean Corpuscular Volume 94.7 fL (80.0-100.0); Mean Platelet Volume 12.2 fL (9.4-12.3); Monocytes # (auto) 0.91 K/uL (0.24-0.82); Monocytes % (auto) 8.7 %; Neutrophils # (auto) 7.18 K/uL (1.4-6.5); Neutrophils % (auto) 68.9 %; Platelet Count 214 K/uL (130-400); RDW Coefficient of Variation 14.3 % (11.5-14.5); RDW Standard Deviation 48.8 fL (36.4-46.3); Red Blood Count 4.17 M/uL (3.93-5.22); White Blood Count 10.42 K/ul (4.8-10.8)
[2021-10-18 16:55] LABS: INR 1.2 (0.9-1.1); Partial Thromboplastin Ratio 1.1; Partial Thromboplastin Time 31.4 Seconds (21.0-31.0)
[2021-10-18 17:02] LABS: Alanine Aminotransferase 42 U/L (7-52); Albumin Globulin Ratio 1.2 (0.9-2); Albumin Level 4.1 gm/dl (3.4-5.0); Alkaline Phosphatase 110 U/L (34-104); Anion Gap 11 (3-11); Aspartate Aminotransferase 35 U/L (13-39); BUN Creatinine Ratio 14.3 (10-20); Bilirubin,Total 1.1 mg/dl (0.2-1.0); Blood Urea Nitrogen 17 mg/dl (6-23); Calcium 9.3 mg/dl (8.5-10.1); Carbon Dioxide 28 mmol/L (21-32); Chloride 98 mmol/L (98-107); Globulin 3.3 gm/dl (2.5-4.0); Glucose 161 mg/dl (70-99(Fasting)); Magnesium 1.9 mg/dl (1.7-2.4); Potassium 3.9 mmol/L (3.5-5.1); Sodium 137 mmol/L (136-145); Total Protein 7.4 gm/dl (6.0-8.3)
--- NOTE | 2021-10-18 17:04 | Emergency Department Note ---
History of Present Illness General Chief complaint: Urinary Symptoms Stated complaint: URINARY SYMPTOMS Time Seen by Provider: 10/18/21 16:21 History of Present Illness Provider complaint: Dysuria Onset (ago): day(s) 2 Maximum Pain Intensity: 4 Associated symptoms: + nausea/vomiting (Nausea no vomiting); no chest pain, no cough, no fever/chills, no headaches or no shortness of breath 76-year-old female presents emergency department for dysuria. She reports that over the last 2 days she has been having dark urine and dysuria. She reports some mild abdominal pain. She reports that she has been using self-cath eterization technique by her urologist Dr. Aguirre. Patient is on antibiotics for chronic UTIs she is on cefadroxil 1 g p.o. every afternoon as well as methenamine 1 g p.o. twice daily. Patient reports nausea but no vomiting. No fevers. No hematuria. Home Medications Medication Instructions Recorded Confirmed Type gabapentin 400 mg capsule 400 mg PO TID 02/19/18 10/18/21 History magnesium 250 mg tablet 250 mg PO HS 02/19/18 10/18/21 History multivitamin 1 tab PO QPM 02/19/18 10/18/21 History potassium 99 mg tablet 1 tab PO HS 02/19/18 10/18/21 History cyanocobalamin (B12)-cobamamide 1,000 mcg sublingual QAM 03/12/18 10/18/21 History 5,000 mcg-100 mcg sublingual tablet (B-12 Plus) neomycin-bacitracn Zn-polymyxn 3.5 1 applic topical DIRECTED 03/12/18 10/18/21 History mg-400 unit-5,000 unit top oint pkt (Neosporin(fox-cql-wguen)) triamcinolone acetonide 55 mcg 1 spray intranasal HS 03/12/18 10/18/21 History nasal spray aerosol (Nasacort) prednisone 5 mg tablet 5 mg PO QAM #90 tabs 06/02/19 10/18/21 Rx aspirin 81 mg tablet,delayed 81 mg PO QAM 02/15/20 10/18/21 History release risedronate 150 mg tablet 150 mg PO WK 02/23/20 10/18/21 History nitroglycerin 0.4 mg sublingual 0.4 mg sublingual Q5M PRN Chest 03/29/20 10/18/21 Rx tablet (Nitrostat) Pain #25 tabs calcium carbonate 500 mg-vitamin 2 tab PO QPM 06/14/20 10/18/21 History D3 5 mcg (200 unit) tablet (Calcium 500 + D) metoprolol succinate 50 mg 50 mg PO BID #180 tabs 11/11/20 10/18/21 Rx tablet,extended release 24 hr rivaroxaban 20 mg tablet (Xarelto) 20 mg PO QPM #90 tabs 02/04/21 10/18/21 Rx conjugated estrogens 0.625 mg/gram 0.625 mg vaginal 2XWK 03/07/21 10/18/21 History vaginal cream (Premarin) mirabegron 50 mg tablet,extended 50 mg PO QPM 04/06/21 10/18/21 History release 24 hr (Myrbetriq) cefadroxil 1 gram tablet 1,000 mg PO QPM #90 tabs 04/12/21 10/18/21 Rx duloxetine 30 mg capsule,delayed 30 mg PO QAM 05/16/21 10/18/21 History release (Cymbalta) esomeprazole magnesium 40 mg 40 mg PO QAM 05/16/21 10/18/21 History capsule,delayed release (Nexium) famotidine 40 mg tablet 40 mg PO QPM 05/16/21 10/18/21 History ferrous sulfate 325 mg (65 mg 325 mg PO Q OTHER DAY 05/16/21 10/18/21 History iron) tablet (iron) triamterene 37.5 1 tab PO QAM 05/16/21 10/18/21 History mg-hydrochlorothiazide 25 mg tablet methenamine hippurate 1 gram tablet 1 g PO BID #60 tabs 05/23/21 10/18/21 Rx valacyclovir 500 mg tablet 500 mg PO QPM 90 days #90 tabs 07/11/21 10/18/21 Rx amiodarone 200 mg tablet 200 mg PO BID #180 tabs 07/12/21 10/18/21 Rx atorvastatin 80 mg tablet 80 mg PO HS #90 tabs 08/23/21 10/18/21 Rx allopurinol 100 mg tablet 100 mg PO QAM #90 tabs 08/24/21 10/18/21 Rx blood sugar diagnostic (OneTouch #100 ea 08/25/21 10/18/21 Rx Verio test strips) levothyroxine 100 mcg tablet 100 mcg PO DAILY #90 tabs 08/25/21 10/18/21 Rx lancets 30 gauge (Alinauch Serina #100 ea 09/01/21 10/18/21 Rx Lancets) metformin 500 mg tablet 500 mg PO QPM #90 tabs 09/21/21 10/18/21 Rx dulaglutide 3 mg/0.5 mL 3 mg subcut WEEKLY 10/18/21 10/18/21 History subcutaneous pen injector Allergies Allergy/AdvReac Type Severity Reaction Status Date / Time sulfamethoxazole Allergy Intermediate Hives Verified 10/18/21 10:40 [From Bactrim] trimethoprim [From Bactrim] Allergy Intermediate Hives Verified 10/18/21 10:40 tetanus toxoid, adsorbed Allergy Mild LOCALIZED Verified 10/18/21 10:40 REACTION, MADE HER FEEL SICK amoxicillin AdvReac Intermediate "GOT Verified 10/18/21 10:40 C-DIFF" minocycline AdvReac Mild HEADACHES Verified 10/18/21 10:40 tetracycline AdvReac Mild HEADACHES Verified 10/18/21 10:40 Past Med/Surg History Medical History Anemia hx Arthritis CAD (coronary artery disease) CABG X 3 (2014) Charcot's joint of foot in type 2 diabetes mellitus 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 coli infection Hyperlipidemia Hypertension Hypothyroidism IBS (irritable bowel syndrome) Incomplete emptying of bladder Myocardial Infarction 2015 On antibiotic therapy preventative for recurring wound infection to rt foot and recurring UTIs Osteoarthritis Paroxysmal atrial fibrillation dx 2015 - on xarelto - follows with Dr. Oropeza Psoriatic arthritis ON CHRONIC PREDNISONE Rectal ulcer Sensorineural hearing loss of both ears Stress incontinence in female Wheelchair dependence pt states she can stand and pivot on her own Surgical History Charcot's joint of foot RIGHT FOOT (4 SURGERIES TOTAL) History of adenoidectomy History of ankle surgery LEFT History of bilateral tubal ligation History of bladder repair surgery R/T URINARY LEAKAGE History of cardiac cath 2014= NO STENTS History of carpal tunnel surgery of left wrist (~04/20/20) History of cataract surgery RIGHT/LEFT History of colonoscopy History of coronary artery bypass graft CABG X 3 (2014) History of dilatation and curettage History of repair of rotator cuff RIGHT. 03/12/2018. DONE AT [facility]. BLOCK WITH LMA. NO ISSUES. History of surgery BLADDER STIMULATOR IMPLANTED IN BACK- PER PATIENT "NOT CURRENTLY WORKING" History of tonsillectomy History of tooth extraction History of total knee replacement LEFT Family History Mother Family hx of colon cancer Cardiac disorder Colorectal cancer Cancer Hypertension Father Cardiac disorder Lung cancer Hypertension Grandmother (Maternal) Stroke Other No family history of adverse response to anesthesia Denies family history of Ovarian cancer Breast cancer Social History Smoking Status: Never smoker Second Hand Exposure: Yes (as a child); Hx Alcohol Use: Yes Alcohol type: wine and hard liquor Hx Substance Use: No Preferred Language: Austrian Communication Ability: Effective Visual Impairment: Limited Hearing Ability: Use of Hearing Aid 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 Required: No Beliefs That Will Affect Care: None marital status: Current Living Situation: Spouse current occupational status: retired Feels Safe at Home: Yes caffeine: No Assistive Devices: Glasses, Hearing Aid - Bilateral and Wheelchair Review of Systems A total of 10 systems reviewed and were otherwise negative Physical Exam Vital Signs Vital Signs - 24 hr 10/18/21 15:32 Temperature 37 C Temperature Source Temporal Artery Scan Pulse Rate 69 Respiratory Rate 18 Respiratory Effort / Characteristics Non-Labored Respiratory Depth Normal Blood Pressure 128/64 Blood Pressure Mean 85 Pulse Oximetry 95 Oxygen Delivery Method Room Air Sepsis Recent Fever Within 48 Hours No Sepsis New/Unexplained Change in Mental Status No Sepsis Action Taken by Nursing No Action Required Physical Exam GENERAL: She is oriented to person, place, and time. She appears well-developed and well-nourished. She does not appear distressed. HENT: Exam performed. -Head: Normocephalic and atraumatic. -Right Ear: External ear normal. No mastoid tenderness. -Left Ear: External ear normal. No mastoid tenderness. -Mouth/Throat: The oropharynx is clear and moist. No trismus in the jaw. No dental abscesses or uvula swelling. No oropharyngeal exudate or tonsillar abscesses. EYES: Conjunctivae and EOM are normal. Pupils are equal, round, and reactive to light. Right eye exhibits no discharge. Left eye exhibits no discharge. No scleral icterus. NECK: Normal range of motion. Neck supple. No JVD present. No spinous process t enderness present. No carotid bruit present. No rigidity. No tracheal deviation and normal range of motion present. No Brudzinski's sign and no Kernig's sign noted. CV: Normal rate, regular rhythm, normal heart sounds and intact distal pulses. There is no peripheral edema. Palpable radial pulses bue. PULM/CHEST: Effort normal and breath sounds normal. No respiratory distress. No stridor. She has no wheezes. She has no rales. -Chest Wall: She exhibits no tenderness. ABD: The abdomen is soft. Bowel sounds are normal. She has no distension. No mass is present. There is no tenderness. There is no rebound, no guarding, no Guadalupe's sign and no tenderness at McBurney's point. Rovsig negative. No CVA tenderness bilaterally. MUSC/SKEL: Normal range of motion. There is no peripheral edema, tenderness or deformity. LYMPH: No cervical adenopathy. NEURO: She is alert and oriented to person, place, and time. She has normal strength. No cranial nerve deficit or sensory deficit. Coordination and gait normal. GCS eye subscore is 4. GCS verbal subscore is 5. GCS motor subscore is 6. Cerebellar tests wnl. SKIN: Skin is warm and dry. She is not diaphoretic. PSYCH: She has a normal mood and affect. Behavior is normal. Judgment and thought content normal. Course Course 1621: The patient was evaluated in room B4. A complete history and physical exam was performed Cardiac monitoring: An order was placed for continuous cardiac monitoring. The monitor shows a rate of 70 with sinus rhythm EMR reviewed. Patient is followed by urology for her recurrent UTIs. She was started to do self catheterizations due to these recurrent UTI. Patient has a history of ESBL and has been seen by infectious disease at [facility]. The patient was going to be given fosfomycin for her recurrent UTIs and endocrinology asked for different medication as they did not think that would be good for her blood sugars. Was on Macrobid which was not helping. She was started on methenamine and cefadroxil. Urine culture from October 06 showed an ESBL that was resistant to many organisms with the exception of meropenem tobramycin and Bactrim. Patient has an allergy to Bactrim. 743: Vital signs stable. Labs show a lactic acid of 2.5. Patient's urine does appear infected. Given the patient's ESBL history and very resistant UTIs patient be treated with meropenem based off her previous cultures admitted to the [facility] service Dr. Jones team has been notified. Medical Decision Making Laboratory Data Result diagrams: 10/18/21 16:25 10/18/21 16:25 Lab Results 10/18/21 10/18/21 10/18/21 Range/Units 16:25 16:25 16:25 WBC 10.42 (4.8-10.8) K/ul RBC 4.17 (3.93-5.22) M/uL Hgb 13.0 (12.0-16.0) g/dl Hct 39.5 (34.1-44.9) % MCV 94.7 (80.0-100.0) fL MCH 31.2 (25.0-34.0) pg MCHC 32.9 (32.0-36.0) g/dL RDW Std Deviation 48.8 H (36.4-46.3) fL RDW Coeff of Kristen 14.3 (11.5-14.5) % Plt Count 214 (130-400) K/uL MPV 12.2 (9.4-12.3) fL Immature Gran % (Auto) 1.1 % Neut % (Auto) 68.9 % Lymph % (Auto) 19.0 % Mower % (Auto) 8.7 % Eos % (Auto) 1.5 % Baso % (Auto) 0.8 % Neut # (Auto) 7.18 H (1.4-6.5) K/uL Lymph # (Auto) 1.98 (1.2-3.4) K/uL Mower # (Auto) 0.91 H (0.24-0.82) K/uL Eos # (Auto) 0.16 (0-0.50) K/uL Baso # (Auto) 0.08 (0-0.2) K/uL Immature Gran # (Auto) 0.11 H (0.00-0.02) K/uL PT 13.0 H (9.0-12.0) Seconds INR 1.2 H (0.9-1.1) APTT 31.4 H (21.0-31.0) Seconds PTT Ratio 1.1 Sodium 137 (136-145) mmol/L Potassium 3.9 (3.5-5.1) mmol/L Chloride 98 (98-107) mmol/L Carbon Dioxide 28 (21-32) mmol/L Anion Gap 11 (3-11) BUN 17 (6-23) mg/dl Creatinine 1.19 (0.6-1.2) mg/dl Est Cr Clr Drug Dosing Not Reportable Est GFR ( Amer) 51.0 ml/min Est GFR (Non-Af Amer) 44.0 ml/min BUN/Creatinine Ratio 14.3 (10-20) Glucose 161 H (70-99(Fasting)) mg/dl Lactate (0.4-2.0) mmol/L Calcium 9.3 (8.5-10.1) mg/dl Magnesium 1.9 (1.7-2.4) mg/dl Total Bilirubin 1.1 H (0.2-1.0) mg/dl AST 35 (13-39) U/L ALT 42 (7-52) U/L Alkaline Phosphatase 110 H (34-104) U/L Total Protein 7.4 (6.0-8.3) gm/dl Albumin 4.1 (3.4-5.0) gm/dl Globulin 3.3 (2.5-4.0) gm/dl Albumin/Globulin Ratio 1.2 (0.9-2) Urine Color Urine Appearance (Clear) Urine pH (4.5-7.5) Ur Specific [place] (1.000-1.030) Urine Protein (Negative) Urine Glucose (UA) (Negative) Urine Ketones (Negative) Urine Blood (Negative) Urine Nitrite (Negative) Urine Bilirubin (Negative) Urine Urobilinogen (Negative) Ur Leukocyte Esterase (Negative) Urine WBC (Auto) (0-5) /hpf Urine RBC (Auto) (0-4) /hpf U Hyaline Cast (Auto) (0-5) /lpf U Epithel Cells (Auto) (0-5) /lpf Urine Bacteria (Auto) (Negative) 10/18/21 10/18/21 Range/Units 16:47 16:55 WBC (4.8-10.8) K/ul RBC (3.93-5.22) M/uL Hgb (12.0-16.0) g/dl Hct (34.1-44.9) % MCV (80.0-100.0) fL MCH (25.0-34.0) pg MCHC (32.0-36.0) g/dL RDW Std Deviation (36.4-46.3) fL RDW Coeff of Kristen (11.5-14.5) % Plt Count (130-400) K/uL MPV (9.4-12.3) fL Immature Gran % (Auto) % Neut % (Auto) % Lymph % (Auto) % Mower % (Auto) % Eos % (Auto) % Baso % (Auto) % Neut # (Auto) (1.4-6.5) K/uL Lymph # (Auto) (1.2-3.4) K/uL Mower # (Auto) (0.24-0.82) K/uL Eos # (Auto) (0-0.50) K/uL Baso # (Auto) (0-0.2) K/uL Immature Gran # (Auto) (0.00-0.02) K/uL PT (9.0-12.0) Seconds INR (0.9-1.1) APTT (21.0-31.0) Seconds PTT Ratio Sodium (136-145) mmol/L Potassium (3.5-5.1) mmol/L Chloride (98-107) mmol/L Carbon Dioxide (21-32) mmol/L Anion Gap (3-11) BUN (6-23) mg/dl Creatinine (0.6-1.2) mg/dl Est Cr Clr Drug Dosing Est GFR ( Amer) ml/min Est GFR (Non-Af Amer) ml/min BUN/Creatinine Ratio (10-20) Glucose (70-99(Fasting)) mg/dl Lactate 2.5 H* (0.4-2.0) mmol/L Calcium (8.5-10.1) mg/dl Magnesium (1.7-2.4) mg/dl Total Bilirubin (0.2-1.0) mg/dl AST (13-39) U/L ALT (7-52) U/L Alkaline Phosphatase (34-104) U/L Total Protein (6.0-8.3) gm/dl Albumin (3.4-5.0) gm/dl Globulin (2.5-4.0) gm/dl Albumin/Globulin Ratio (0.9-2) Urine Color Yellow Urine Appearance Cloudy A (Clear) Urine pH 6.5 (4.5-7.5) Ur Specific [place] 1.013 (1.000-1.030) Urine Protein Trace H (Negative) Urine Glucose (UA) Negative (Negative) Urine Ketones Negative (Negative) Urine Blood 3+ H (Negative) Urine Nitrite Negative (Negative) Urine Bilirubin Negative (Negative) Urine Urobilinogen Negative (Negative) Ur Leukocyte Esterase 2+ H (Negative) Urine WBC (Auto) >30 H (0-5) /hpf Urine RBC (Auto) >30 H (0-4) /hpf U Hyaline Cast (Auto) 1-5 (0-5) /lpf U Epithel Cells (Auto) 5-10 H (0-5) /lpf Urine Bacteria (Auto) 4+ H (Negative) Imaging Data Radiologist's Impression: Abdomen/Pelvis CT 10/18/21 15:34 CT abd pelvis wo con CLINICAL HISTORY: Hematuria, LLQ pain COMPARISON STUDY: 02/15/2020 CT DOSE: 789.42 mGy.cm TECHNIQUE: Standard CT of the Abdomen and Pelvis was performed without IV contrast. The patient did not receive oral contrast. A dose lowering technique was utilized adhering to the principles of ALARA. FINDINGS: Lung base: Chronic scarring is present the lung bases, right greater than left. The lung bases are otherwise clear. Abdominal cavity: There is no evidence for abdominal mass, adenopathy or ascites. Liver: There is mild hepatomegaly with diffuse fatty infiltration of the liver again seen.. Spleen: The spleen is homogeneous in attenuation on these limited noncontrast images. Pancreas: The pancreas is homogeneous in attenuation on these limited noncontrast images. Gall Bladder: The gallbladder is well distended with suspicion of sludge versus small stones along the dependent portion of gallbladder. If indicated clinically, gallbladder ultrasound could be obtained for further evaluation. Adrenal glands: The adrenal glands are normal in size and attenuation on these limited noncontrast images. Kidneys: The kidneys are homogeneous in attenuation on these limited noncontrast images. There is no evidence for gross renal mass, calculus or hydronephrosis bilaterally. There is evidence for renal vascular calcification bilaterally. Bowel: There is extensive sigmoid diverticulosis with pandiverticulosis present throughout the remainder of the colon. There is mucosal thickening present throughout the sigmoid colon. However, no perisigmoidal inflammatory changes or definite CT evidence for diverticulitis is seen. The bowel loops are normally placed within the abdomen and pelvis without evidence for dilatation or obstruction. There is no evidence for mass lesion. There are no inflammatory changes present. There is no evidence for free air. There is evidence for a normal appendix in the right lower quadrant. Bladder: There is gross distention of the bladder with no evidence for focal bladder wall thickening, calculus or diverticulum. : There is no evidence for pelvic mass or adenopathy. Uterus is atrophic with calcified fibroids present. Vasculature: There is no evidence for focal aneurysmal dilatation of the abdominal aorta. Atherosclerotic calcification is present. Osseous structures: There is no acute osseous pathology. Degenerative changes are seen within the spine. IMPRESSION: 1. There is again pandiverticulosis with extensive diverticulosis of the sigmoid colon. While there is mucosal thickening present, no perisigmoidal inflammatory changes or evidence for acute diverticulitis is seen. 2. No other evidence for acute intra-abdominal or pelvic abnormality on these limited noncontrast images. 3. Renal vascular calcification with otherwise negative noncontrast CT of the kidneys. 4. Gross distention of the urinary bladder with no focal abnormality identified. 5. Additional nonacute findings are delineated above. ACT 112: Negative or not required by law. Electronically signed by: Anival Mcgill M.D. 10/18/2021 4:25 PM [facility] Narrative 1621: The patient was evaluated in room B4. A complete history and physical exam was performed Cardiac monitoring: An order was placed for continuous cardiac monitoring. The monitor shows a rate of 70 with sinus rhythm EMR reviewed. Patient is followed by urology for her recurrent UTIs. She was started to do self catheterizations due to these recurrent UTI. Patient has a history of ESBL and has been seen by infectious disease at [facility]. The patient was going to be given fosfomycin for her recurrent UTIs and endocrinology asked for different medication as they did not think that would be good for her blood sugars. Was on Macrobid which was not helping. She was started on methenamine and cefadroxil. Urine culture from October 06 showed an ESBL that was resistant to many organisms with the exception of meropenem tobramycin and Bactrim. Patient has an allergy to Bactrim. 174: Vital signs stable. Labs show a lactic acid of 2.5. Patient's urine does appear infected. Given the patient's ESBL history and very resistant UTIs p atient be treated with meropenem based off her previous cultures admitted to the [facility] service Dr. Jones team has been notified. Impression & Plan Lactic acidemia, UTI due to extended-spectrum beta lactamase (ESBL) producing Escherichia coli Discharge Plan Visit Data Chief Complaint: Urinary Symptoms Stated Complaint: URINARY SYMPTOMS ED Provider: Zi Bowser Discharge Problem: Lactic acidemia, UTI due to extended-spectrum beta lactamase (ESBL) producing Escherichia coli Patient Disposition: Being Evaluated by Hospitalist Forms Stand Alone Forms: My [facility] Prescriptions Prescriptions: No Action prednisone 5 mg tablet 5 mg PO QAM Qty: 90 3RF nitroglycerin [Nitrostat] 0.4 mg tablet, sublingual 0.4 mg Sublingual Q5M PRN (Reason: Chest Pain) Qty: 25 6RF Rx Instructions: Call 911 for chest pain that exceeds 3 doses metoprolol succinate 50 mg tablet extended release 24 hr 50 mg PO BID Qty: 180 3RF Xarelto 20 mg tablet 20 mg PO QPM Qty: 90 3RF cefadroxil 1 gram tablet 1,000 mg PO QPM Qty: 90 3RF methenamine hippurate 1 gram tablet 1 g PO BID Qty: 60 5RF valacyclovir 500 mg tablet 500 mg PO QPM 90 Days Qty: 90 4RF Rx Instructions: Take 1 tablet by mouth daily. amiodarone 200 mg tablet 200 mg PO BID Qty: 180 3RF atorvastatin 80 mg tablet 80 mg PO HS Qty: 90 3RF Rx Instructions: TAKE 1 TABLET BY MOUTH AT BEDTIME allopurinol 100 mg tablet 100 mg PO QAM Qty: 90 3RF levothyroxine 100 mcg tablet 100 mcg PO DAILY Qty: 90 3RF (DME) OneTouch Verio test strips Strip See Rx Instructions .ROUTE .MEDSUPPLY Qty: 100 3RF Dose Instruction: As directed Rx Instructions: test 1 time daily (DME) lancets [OneTouch Delica Lancets] 30 gauge misc See Rx Instructions .ROUTE .MEDSUPPLY Qty: 100 3RF Dose Instruction: As directed Rx Instructions: Test once daily metformin 500 mg tablet 500 mg PO QPM Qty: 90 3RF Premarin 0.625 mg/gram cream 0.625 mg vaginal 2XWK Rx Instructions: off 5 days; repeat cycle Myrbetriq 50 mg tablet extended release 24 hr 50 mg PO QPM risedronate 150 mg tablet 150 mg PO WK Label Comments: takes on sunday qam dulaglutide 3 mg/0.5 mL pen injector 3 mg SQ WEEKLY Rx Instructions: Fridays multivitamin Tablet 1 tab PO QPM gabapentin 400 mg Capsule 400 mg PO TID potassium 99 mg Tablet 1 tab PO HS magnesium 250 mg Tablet 250 mg PO HS cyanocobalamin-cobamamide [B-12 Plus] 5,000-100 mcg Tablet, Sublingual 1,000 mcg sublingual QAM triamcinolone acetonide [Nasacort] 55 mcg Aerosol,[place] 1 spray INTRANASAL HS Neosporin ([id number]) 3.5-400-5,000 [id number] Ointment In Packet 1 applic TOPICAL DIRECTED calcium carbonate-vitamin D3 [Calcium 500 + D] 500 mg(1,250mg) -200 unit tablet 2 tab PO QPM aspirin 81 mg Tablet,Delayed Release (Dr/Ec) 81 mg PO QAM famotidine 40 mg tablet 40 mg PO QPM ferrous sulfate [iron] 325 mg (65 mg iron) tablet 325 mg PO Q OTHER DAY Label Comments: takes in the am esomeprazole magnesium [Nexium] 40 mg capsule,delayed release(DR/EC) 40 mg PO QAM triamterene-hydrochlorothiazid 37.5-25 mg tablet 1 tab PO QAM duloxetine [Cymbalta] 30 mg capsule,delayed release(DR/EC) 30 mg PO QAM Referrals Referrals: Reno Perez MD [Primary Care Provider] -
[2021-10-18 17:14] LABS: Appearance Urine Cloudy (Clear); Bacteria Urine Automated 4+ (Negative); Bilirubin Urine Negative (Negative); Blood Urine 3+ (Negative); Color Urine Yellow; Glucose Urine UA Negative (Negative); Ketones Urine Negative (Negative); Leukocyte Esterase Urine 2+ (Negative); Nitrite Urine Negative (Negative); Protein Urine Trace (Negative); RBC Urine Automated >30 /hpf (0-4); Specific Gravity Urine 1.013 (1.000-1.030); Urobilinogen Urine Negative (Negative); WBC Urine Automated >30 /hpf (0-5); pH Urine 6.5 (4.5-7.5)
[2021-10-18] MEDS ORDERED: SODIUM CHLORIDE 0.9% 1000ML 1,000 ML IV SCH (17:45)
--- NOTE | 2021-10-18 18:18 | History & Physical Report ---
Date of Service October 18, 2021 Assessment & Plan (1) UTI due to extended-spectrum beta lactamase (ESBL) producing Escherichia coli: Plan: Possible UTI. I am not at all convinced that she has a true UTI given her only symptom is brown/bloody urine in a patient who has to self-cath and is on anticoagulation. Nonetheless, will continue empiric abx. - Continue meropenem - Follow culture - Would try to call her ID doctor Sasha Van to help with recs. (2) Neurogenic bladder: Plan: Unclear cause, but has been a long-standing problem. Had bladder stimulator implanted at [place] ~[address] Aguirre. - Continue home mirabegron - Continue intermittent cathing while inpatient. (3) CAD (coronary artery disease): Plan: S/p CABG. No chest pain, no indication of active issues. - Continue home meds. (4) Diabetic peripheral neuropathy associated with type 2 diabetes mellitus: Plan: A1c was 8.1% this month. - Hold home meds - Sliding scale insulin (5) Paroxysmal atrial fibrillation: Plan: - Continue home amiodarone, metoprolol, and Xarelto (6) Psoriatic arthritis: Plan: No indication for stress-dose steroids. - Continue chronic prednisone. History of Present Illness Primary Care Provider: Reno Perez MD 76yo F w/ DM2, paroxisymal afib, Charcot foot who presents with possible UTI. The patient has had many prior UTIs mostly with ESBL E. coli. She has bladder emptying issues which she explains as being due to "odd anatomy" for which she has had a bladder stimulator implanted in 2018 in [place] and follows with Dr. Aguirre. She follows with Sasha Van for recurrent UTIs and chronic RLE infection. She was in her normal state of health until last night when she noted bloody, brownish urine. It happened again this morning, so she presented to the ER. She is otherwise in her normal state of health without fevers, chills, sweats, any change in her chronic suprapubic pain. Allergies Allergy/AdvReac Type Severity Reaction Status Date / Time sulfamethoxazole Allergy Intermediate Hives Verified 10/18/21 17:44 [From Bactrim] trimethoprim [From Bactrim] Allergy Intermediate Hives Verified 10/18/21 17:44 tetanus toxoid, adsorbed Allergy Mild LOCALIZED Verified 10/18/21 17:44 REACTION, MADE HER FEEL SICK amoxicillin AdvReac Intermediate "GOT Verified 10/18/21 17:44 C-DIFF" minocycline AdvReac Mild HEADACHES Verified 10/18/21 17:44 tetracycline AdvReac Mild HEADACHES Verified 10/18/21 17:44 Home Medications Medication Instructions Recorded Confirmed Type gabapentin 400 mg capsule 400 mg PO TID 02/19/18 10/18/21 History magnesium 250 mg tablet 250 mg PO HS 02/19/18 10/18/21 History multivitamin 1 tab PO QPM 02/19/18 10/18/21 History potassium 99 mg tablet 1 tab PO HS 02/19/18 10/18/21 History cyanocobalamin (B12)-cobamamide 1,000 mcg sublingual QAM 03/12/18 10/18/21 History 5,000 mcg-100 mcg sublingual tablet (B-12 Plus) triamcinolone acetonide 55 mcg 1 spray intranasal HS 03/12/18 10/18/21 History nasal spray aerosol (Nasacort) prednisone 5 mg tablet 5 mg PO QAM #90 tabs 06/02/19 10/18/21 Rx aspirin 81 mg tablet,delayed 81 mg PO QAM 02/15/20 10/18/21 History release risedronate 150 mg tablet 150 mg PO WK 02/23/20 10/18/21 History nitroglycerin 0.4 mg sublingual 0.4 mg sublingual Q5M PRN Chest 03/29/20 10/18/21 Rx tablet (Nitrostat) Pain #25 tabs calcium carbonate 500 mg-vitamin 2 tab PO QPM 06/14/20 10/18/21 History D3 5 mcg (200 unit) tablet (Calcium 500 + D) metoprolol succinate 50 mg 50 mg PO BID #180 tabs 11/11/20 10/18/21 Rx tablet,extended release 24 hr rivaroxaban 20 mg tablet (Xarelto) 20 mg PO QPM #90 tabs 02/04/21 10/18/21 Rx conjugated estrogens 0.625 mg/gram 0.625 mg vaginal 2XWK 03/07/21 10/18/21 History vaginal cream (Premarin) mirabegron 50 mg tablet,extended 50 mg PO QPM 04/06/21 10/18/21 History release 24 hr (Myrbetriq) cefadroxil 1 gram tablet 1,000 mg PO QPM #90 tabs 04/12/21 10/18/21 Rx duloxetine 30 mg capsule,delayed 30 mg PO QAM 05/16/21 10/18/21 History release (Cymbalta) esomeprazole magnesium 40 mg 40 mg PO QAM 05/16/21 10/18/21 History capsule,delayed release (Nexium) famotidine 40 mg tablet 40 mg PO QPM 05/16/21 10/18/21 History ferrous sulfate 325 mg (65 mg 325 mg PO Q OTHER DAY 05/16/21 10/18/21 History iron) tablet (iron) triamterene 37.5 1 tab PO QAM 05/16/21 10/18/21 History mg-hydrochlorothiazide 25 mg tablet methenamine hippurate 1 gram tablet 1 g PO BID #60 tabs 05/23/21 10/18/21 Rx valacyclovir 500 mg tablet 500 mg PO QPM 90 days #90 tabs 07/11/21 10/18/21 Rx amiodarone 200 mg tablet 200 mg PO BID #180 tabs 07/12/21 10/18/21 Rx atorvastatin 80 mg tablet 80 mg PO HS #90 tabs 08/23/21 10/18/21 Rx allopurinol 100 mg tablet 100 mg PO QAM #90 tabs 08/24/21 10/18/21 [facility] 08/25/21 10/18/21 Rx Verio test strips) levothyroxine 100 mcg tablet 100 mcg PO DAILY #90 tabs 08/25/21 10/18/21 Rx lancets 30 gauge ([facility] 09/01/21 10/18/21 Rx Lancets) metformin 500 mg tablet 500 mg PO QPM #90 tabs 09/21/21 10/18/21 Rx dulaglutide 3 mg/0.5 mL 3 mg subcut WEEKLY 10/18/21 10/18/21 History subcutaneous pen injector neomycin-bacitracn Zn-polymyxn 3.5 1 applic topical DIRECTED 10/18/21 10/18/21 History mg-400 unit-5,000 unit top oint pkt AFFECTED AREAS Past Med/Surg History Medical History Anemia hx Arthritis CAD (coronary artery disease) CABG X 3 (2014) Charcot's joint of foot in type 2 diabetes mellitus 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 coli infection Hyperlipidemia Hypertension Hypothyroidism IBS (irritable bowel syndrome) Incomplete emptying of bladder Myocardial Infarction 2015 On antibiotic therapy preventative for recurring wound infection to rt foot and recurring UTIs Osteoarthritis Paroxysmal atrial fibrillation dx 2015 - on xarelto - follows with Dr. Oropeza Psoriatic arthritis ON CHRONIC PREDNISONE Rectal ulcer Sensorineural hearing loss of both ears Stress incontinence in female Wheelchair dependence pt states she can stand and pivot on her own Surgical History Charcot's joint of foot RIGHT FOOT (4 SURGERIES TOTAL) History of adenoidectomy History of ankle surgery LEFT History of bilateral tubal ligation History of bladder repair surgery R/T URINARY LEAKAGE History of cardiac cath 2014= NO STENTS History of carpal tunnel surgery of left wrist (~04/20/20) History of cataract surgery RIGHT/LEFT History of colonoscopy History of coronary artery bypass graft CABG X 3 (2014) History of dilatation and curettage History of repair of rotator cuff RIGHT. 03/12/2018. DONE AT [facility]. BLOCK WITH LMA. NO ISSUES. History of surgery BLADDER STIMULATOR IMPLANTED IN BACK- PER PATIENT "NOT CURRENTLY WORKING" History of tonsillectomy History of tooth extraction History of total knee replacement LEFT Family History Mother Family hx of colon cancer Cardiac disorder Colorectal cancer Cancer Hypertension Father Cardiac disorder Lung cancer Hypertension Grandmother (Maternal) Stroke Other No family history of adverse response to anesthesia Denies family history of Ovarian cancer Breast cancer Social History Smoking Status: Never smoker Second Hand Exposure: Yes (as a child); Hx Alcohol Use: Yes Alcohol type: wine and hard liquor Hx Substance Use: No Preferred Language: Ugandan Communication Ability: Effective Visual Impairment: Limited Hearing Ability: Use of Hearing Aid Synthetic Soil Blocks Pulper Required: No Beliefs That Will Affect Care: None marital status: Current Living Situation: Spouse current occupational status: retired Feels Safe at Home: Yes caffeine: No Assistive Devices: Glasses, Hearing Aid - Bilateral and Wheelchair Review of Systems Review of Systems: All systems reviewed & are unremarkable except as noted in HPI & below Physical Exam Constitutional: WD/WN, vitals as above Eyes: EOM intact bilaterally; no conjunctival abnormality ENMT: external ear and nose normal, oropharynx normal Neck: trachea midline, no thyromegaly normal visual inspection Respiratory: normal respiratory effort, lungs clear to auscultation no respiratory distress Cardiovascular: RRR, no murmur, no edema Gastrointestinal (Abdomen): Inspection/Auscultation: abdomen normal to inspection; abdomen not distended Musculoskeletal: no cyanosis or clubbing, extremities motor strength 5/5 Skin: no rashes, warm and dry Neurologic: moves all extremities and awake Psychiatric: Orientation: alert, oriented to person and cooperative Results & Data Results & Data ([facility]) Vital Signs (Past 12 Hours) Vital Signs Temp Pulse Resp BP Pulse Ox O2 Del Method 10/18/21 15:32 37 C 69 18 128/64 95 Room Air Code Status & VTE Plan VTE Prophylaxis Plan VTE Prophylaxis will be ordered: Yes PG Care Time/CCT Total # of Minutes Spent Total Time Spent with Patient: Total time spent is greater than 50% in coordination of care (as documented) at patient's floor/unit and/or counseling patient: Coding Level of Care Code 77716 Initial Inpt Care Lvl 3 Diagnoses UTI due to extended-spectrum beta lactamase (ESBL) producing Escherichia coli N39.0; B96.29; Z16.12 Neurogenic bladder N31.9 CAD (coronary artery disease) I25.10 Diabetic peripheral neuropathy associated with type 2 diabetes mellitus E11.42 Paroxysmal atrial fibrillation I48.0 Psoriatic arthritis L40.50
[2021-10-18] MEDS: MEROPENEM 500 MG in SYRINGE 0 ML IV SCH (18:53)
[2021-10-18] MEDS ORDERED: DEXTROSE 50% 50 ML SYRINGE IV PRN (22:02)
[2021-10-18] MEDS ORDERED: ONDANSETRON INJ 2 MG/ML 2 ML VIAL IV PRN (22:02)
[2021-10-18] MEDS ORDERED: GLUCOSE 40% GEL 15 GM TUBE PO PRN (22:02)
[2021-10-18] MEDS ORDERED: ACETAMINOPHEN 325 MG TAB PO PRN (22:02)
[2021-10-18] MEDS ORDERED: CARBOHYDRATES FOR HYPOGLYCEMIA PO PRN (22:02)
[2021-10-18] MEDS ORDERED: GLUCAGON FOR INJ 1 MG VIAL SQ PRN (22:02)
[2021-10-18] MEDS ORDERED: GLUCOSE 10 TAB/TUBE PO PRN (22:02)
[2021-10-18] MEDS: INSULIN ASPART PER UNIT SC SCH (22:52)
[2021-10-18] MEDS: RIVAROXABAN 20 MG TAB PO SCH (23:07)
[2021-10-18] MEDS: MAGNESIUM OXIDE 400 MG TAB PO SCH (23:07)
[2021-10-18] MEDS: FAMOTIDINE 40 MG TABLET PO SCH (23:08)
[2021-10-18] MEDS: valACYclovir HCL 500 MG TABLET PO SCH (23:08)
[2021-10-18] MEDS: MIRABEGRON ER 25 MG TAB PO SCH (23:09)
[2021-10-18] MEDS: METOPROLOL SUCC 50MG EXT REL TAB PO SCH (23:10)
[2021-10-18] MEDS: GABAPENTIN 400 MG CAP PO SCH (23:11)
[2021-10-18] MEDS: ATORVASTATIN 40 MG TAB PO SCH (23:11)
[2021-10-18] MEDS: AMIODARONE 200 MG TAB PO SCH (23:12)
[2021-10-19] MEDS: LEVOTHYROXINE SODIUM 100 MCG TABLET PO SCH (04:59)
[2021-10-19] MEDS: MEROPENEM 500 MG in SYRINGE 0 ML IV SCH ×3 (04:59→18:00)
--- NOTE | 2021-10-19 07:41 | Hospitalist Progress Note ---
Date of Service October 19, 2021 Assessment & Plan (1) UTI due to extended-spectrum beta lactamase (ESBL) producing Escherichia coli: Plan: Possible UTI. Pt has changes in urine color, neruogenic bladder and abnormal UA, no cystitis seen on CT - Continue meropenem - Follow culture, initial id are gram negative - Would try to call her ID doctor Sasha Van to help with recs as has had many ESBL E Coli infections in the past (2) Neurogenic bladder: Plan: Unclear cause, but has been a long-standing problem. Had bladder stimulator implanted at [place] ~[address] Aguirre. - Continue home mirabegron - Continue intermittent cathing while inpatient. (3) CAD (coronary artery disease): Plan: S/p CABG. No chest pain, no indication of active issues. - Continue home meds. (4) Diabetic peripheral neuropathy associated with type 2 diabetes mellitus: Plan: A1c was 8.1% this month. - Hold home meds - controlled with Sliding scale insulin (5) Paroxysmal atrial fibrillation: Plan: - Continue home amiodarone, metoprolol, and Xarelto (6) Psoriatic arthritis: Plan: No indication for stress-dose steroids. - Continue chronic prednisone. Admission and Anticipated Discharge Date Admission Date: October 18, 2021 Subjective pt feels improved but fatigued pt has improved urine color no dysuria Review of Systems Review of Systems: Mild distress and moderate fatigue no headache, no visual changes no speech or swallowing issues no chest pain, pressure or palpitations no shortness of breath, cough or wheezes no abdominal pain, nausea or vomiting, diarrhea or constipation no dysuria, hematuria or frequency no focal joint pain or swelling no back pain, CVA tenderness or radicular pain no bruising, bleeding or rashes no focal signs of weakness or numbness or altered sensation no complaints of anxiety or depression.. Physical Exam Physical Exam: The patient appeared well nourished and normally developed. Vital signs as documented. Head exam is normocephalic atraumatic Neck is without JVD, thyromegaly, or carotid bruits. Lungs are clear to auscultation, no focal loss of breath sounds Cardiac exam, Rhythm is regular.. No murmurs, rubs or gallops. Abdominal exam reveals normal bowel sounds, soft non tender, no masses Extremities are nonedematous and both pedal pulses are present Neurologic exam is alert and oriented, no focal loss of strength or sensation Skin is without bruises or rashes Psychologically is without concerns for anxiety or depression.. Results & Data Results & Data ([facility]) Vital Signs (Past 12 Hours) Vital Signs Temp Pulse Pulse Resp BP BP Pulse Ox 10/18/21 23:56 98.1 F 82 20 124/59 L 92 10/18/21 22:44 66 20 129/71 95 10/18/21 22:41 67 20 129/71 95 10/18/21 20:29 67 20 124/61 94 O2 Del Method 10/18/21 23:56 Room Air 10/18/21 22:44 Room Air 10/18/21 22:41 Room Air 10/18/21 20:29 Room Air n PG Care Time/CCT Total # of Minutes Spent Total Time Spent with Patient: Total time spent is greater than 50% in coordination of care (as documented) at patient's floor/unit and/or counseling patient: Coding Level of Care Code 80221 Subseq Hosp Care Lvl 2 Diagnoses UTI due to extended-spectrum beta lactamase (ESBL) producing Escherichia coli N39.0; B96.29; Z16.12 Neurogenic bladder N31.9 CAD (coronary artery disease) I25.10 Diabetic peripheral neuropathy associated with type 2 diabetes mellitus E11.42 Paroxysmal atrial fibrillation I48.0 Psoriatic arthritis L40.50
[2021-10-19] MEDS: INSULIN ASPART PER UNIT SC SCH ×4 (09:09→23:01)
[2021-10-19] MEDS: PANTOprazole 40 MG TAB PO SCH (09:10)
[2021-10-19] MEDS: DULoxetine HCL 30 MG CAP PO SCH (09:10)
[2021-10-19] MEDS: allopurinoL 100 MG TAB PO SCH (09:10)
[2021-10-19] MEDS: ASPIRIN 81 MG ECTAB PO SCH (09:10)
[2021-10-19] MEDS: TRIAMTERENE/HCTZ 37.5/25MG TAB PO SCH (09:10)
[2021-10-19] MEDS: AMIODARONE 200 MG TAB PO SCH ×2 (09:11→22:58)
[2021-10-19] MEDS: METOPROLOL SUCC 50MG EXT REL TAB PO SCH ×2 (09:11→23:01)
[2021-10-19] MEDS: GABAPENTIN 400 MG CAP PO SCH ×3 (09:11→22:59)
[2021-10-19 09:14] LABS: Hematocrit (blood only) 39.7 % (34.1-44.9); Hemoglobin 12.7 g/dl (12.0-16.0); Mean Corpuscular Hemoglobin 31.1 pg (25.0-34.0); Mean Corpuscular Volume 97.3 fL (80.0-100.0); Mean Platelet Volume 11.7 fL (9.4-12.3); Platelet Count 186 K/uL (130-400); RDW Coefficient of Variation 14.4 % (11.5-14.5); RDW Standard Deviation 51.6 fL (36.4-46.3); Red Blood Count 4.08 M/uL (3.93-5.22); White Blood Count 9.87 K/ul (4.8-10.8)
[2021-10-19 09:47] LABS: BUN Creatinine Ratio 15.2 (10-20); Creatinine Clr Calc Pharmacy 46.8 ml/min; Est GFR (African American) 59.3 ml/min; Est GFR (Non-African American) 51.2 ml/min; Magnesium 1.9 mg/dl (1.7-2.4); Potassium 4.1 mmol/L (3.5-5.1)
[2021-10-19] MEDS: predniSONE 5 MG TAB PO SCH (10:20)
[2021-10-19] MEDS ORDERED: PSYLLIUM or GUAR GUM FIBER POWDER PACKET PO ONE (13:03)
[2021-10-19] MEDS: MIRABEGRON ER 25 MG TAB PO SCH (22:56)
[2021-10-19] MEDS: MAGNESIUM OXIDE 400 MG TAB PO SCH (22:57)
[2021-10-19] MEDS: RIVAROXABAN 20 MG TAB PO SCH (22:58)
[2021-10-19] MEDS: ATORVASTATIN 40 MG TAB PO SCH (22:59)
[2021-10-19] MEDS: FAMOTIDINE 40 MG TABLET PO SCH (23:00)
[2021-10-19] MEDS: valACYclovir HCL 500 MG TABLET PO SCH (23:00)
[2021-10-20] MEDS: MEROPENEM 500 MG in SYRINGE 0 ML IV SCH ×3 (02:00→17:55)
[2021-10-20] MEDS: LEVOTHYROXINE SODIUM 100 MCG TABLET PO SCH (05:29)
[2021-10-20] MEDS: INSULIN ASPART PER UNIT SC SCH ×4 (08:55→20:50)
[2021-10-20] MEDS: METOPROLOL SUCC 50MG EXT REL TAB PO SCH ×2 (08:56→21:31)
[2021-10-20] MEDS: PSYLLIUM or GUAR GUM FIBER POWDER PACKET PO SCH (08:56)
[2021-10-20] MEDS: GABAPENTIN 400 MG CAP PO SCH ×3 (08:56→21:30)
[2021-10-20] MEDS: AMIODARONE 200 MG TAB PO SCH ×2 (08:56→21:30)
[2021-10-20] MEDS: DULoxetine HCL 30 MG CAP PO SCH (08:57)
[2021-10-20] MEDS: ASPIRIN 81 MG ECTAB PO SCH (08:57)
[2021-10-20] MEDS: predniSONE 5 MG TAB PO SCH (08:57)
[2021-10-20] MEDS: allopurinoL 100 MG TAB PO SCH (08:57)
[2021-10-20] MEDS: PANTOprazole 40 MG TAB PO SCH (08:57)
[2021-10-20] MEDS: TRIAMTERENE/HCTZ 37.5/25MG TAB PO SCH (08:57)
[2021-10-20 09:13] LABS: Creatinine Clr Calc Pharmacy 48.2 ml/min; Est GFR (African American) 61.4 ml/min
--- NOTE | 2021-10-20 13:54 | Hospitalist Progress Note ---
Date of Service October 20, 2021 Assessment & Plan (1) UTI due to extended-spectrum beta lactamase (ESBL) producing Escherichia coli: Plan: Possible UTI. Pt has changes in urine color, neruogenic bladder and abnormal UA, no cystitis seen on CT - ESBL E Coli, Continue meropenem, return call pending from her ID doctor Sasha Van to help with recs as has had many ESBL E Coli infections in the past (2) Neurogenic bladder: Plan: Unclear cause, but has been a long-standing problem. Had bladder stimulator implanted at [place] ~[address] Aguirre. - Continue home mirabegron - Continue intermittent cathing while inpatient. (3) CAD (coronary artery disease): Plan: S/p CABG. No chest pain, no indication of active issues. - Continue home meds. (4) Diabetic peripheral neuropathy associated with type 2 diabetes mellitus: Plan: A1c was 8.1% this month. - Hold home meds - controlled with Sliding scale insulin (5) Paroxysmal atrial fibrillation: Plan: - Continue home amiodarone, metoprolol, and Xarelto (6) Psoriatic arthritis: Plan: No indication for stress-dose steroids. - Continue chronic prednisone. Plan PT offered PT/OT and refused Admission and Anticipated Discharge Date Admission Date: October 18, 2021 Subjective pt feels improved but fatigued pt has improved urine color no dysuria ESBL organism again identified. sensitive to Meropenem, have message into Dr Rivas Review of Systems Review of Systems: Mild distress and moderate fatigue no headache, no visual changes no speech or swallowing issues no chest pain, pressure or palpitations no shortness of breath, cough or wheezes no abdominal pain, nausea or vomiting, diarrhea or constipation no dysuria, hematuria or frequency no focal joint pain or swelling no back pain, CVA tenderness or radicular pain no bruising, bleeding or rashes no focal signs of weakness or numbness or altered sensation no complaints of anxiety or depression.. Physical Exam Physical Exam: The patient appeared well nourished and normally developed. Vital signs as documented. Head exam is normocephalic atraumatic Neck is without JVD, thyromegaly, or carotid bruits. Lungs are clear to auscultation, no focal loss of breath sounds Cardiac exam, Rhythm is regular.. No murmurs, rubs or gallops. Abdominal exam reveals normal bowel sounds, soft non tender, no masses Extremities are nonedematous and both pedal pulses are present Neurologic exam is alert and oriented, no focal loss of strength or sensation Skin is without bruises or rashes Psychologically is without concerns for anxiety or depression.. Results & Data Results & Data ([facility]) Vital Signs (Past 12 Hours) Vital Signs Temp Pulse Resp BP Pulse Ox O2 Del Method 10/20/21 07:38 97.9 F 67 16 114/68 96 Room Air PG Care Time/CCT Total # of Minutes Spent Total Time Spent with Patient: Total time spent is greater than 50% in coordination of care (as documented) at patient's floor/unit and/or counseling patient: Coding Level of Care Code 35245 Subseq Hosp Care Lvl 2 Diagnoses UTI due to extended-spectrum beta lactamase (ESBL) producing Escherichia coli N39.0; B96.29; Z16.12 Neurogenic bladder N31.9 CAD (coronary artery disease) I25.10 Diabetic peripheral neuropathy associated with type 2 diabetes mellitus E11.42 Paroxysmal atrial fibrillation I48.0 Psoriatic arthritis L40.50
[2021-10-20] MEDS: FAMOTIDINE 40 MG TABLET PO SCH (21:29)
[2021-10-20] MEDS: MIRABEGRON ER 25 MG TAB PO SCH (21:29)
[2021-10-20] MEDS: ATORVASTATIN 40 MG TAB PO SCH (21:29)
[2021-10-20] MEDS: MAGNESIUM OXIDE 400 MG TAB PO SCH (21:30)
[2021-10-20] MEDS: valACYclovir HCL 500 MG TABLET PO SCH (21:30)
[2021-10-20] MEDS: RIVAROXABAN 20 MG TAB PO SCH (21:30)
[2021-10-21] MEDS: MEROPENEM 500 MG in SYRINGE 0 ML IV SCH ×3 (02:59→17:47)
[2021-10-21] MEDS: LEVOTHYROXINE SODIUM 100 MCG TABLET PO SCH (06:01)
[2021-10-21] MEDS: GABAPENTIN 400 MG CAP PO SCH ×3 (08:15→22:05)
[2021-10-21] MEDS: allopurinoL 100 MG TAB PO SCH (08:15)
[2021-10-21] MEDS: PANTOprazole 40 MG TAB PO SCH (08:15)
[2021-10-21] MEDS: DULoxetine HCL 30 MG CAP PO SCH (08:15)
[2021-10-21] MEDS: predniSONE 5 MG TAB PO SCH (08:15)
[2021-10-21] MEDS: ASPIRIN 81 MG ECTAB PO SCH (08:15)
[2021-10-21] MEDS: TRIAMTERENE/HCTZ 37.5/25MG TAB PO SCH (08:16)
[2021-10-21] MEDS: PSYLLIUM or GUAR GUM FIBER POWDER PACKET PO SCH (08:16)
[2021-10-21] MEDS: AMIODARONE 200 MG TAB PO SCH ×2 (08:16→22:05)
[2021-10-21] MEDS: METOPROLOL SUCC 50MG EXT REL TAB PO SCH ×2 (08:16→22:06)
[2021-10-21] MEDS: INSULIN ASPART PER UNIT SC SCH ×4 (09:00→22:26)
[2021-10-21 09:30] LABS: Creatinine Clr Calc Pharmacy 38.7 ml/min; Est GFR (African American) 47.1 ml/min; Est GFR (Non-African American) 40.7 ml/min
--- NOTE | 2021-10-21 09:36 | Hospitalist Progress Note ---
Date of Service October 21, 2021 Assessment & Plan (1) UTI due to extended-spectrum beta lactamase (ESBL) producing Escherichia coli: Plan: Possible UTI. Pt has changes in urine color, neruogenic bladder and abnormal UA, no cystitis seen on CT - ESBL E Coli, Continue meropenem, return call pending from her ID doctor Sasha Van recommends 14 days of Meropenen case management is working on outpt benefits for meropenem (2) Neurogenic bladder: Plan: Unclear cause, but has been a long-standing problem. Had bladder stimulator implanted at [place] ~[address] Aguirre. - Continue home mirabegron - Continue intermittent cathing while inpatient. (3) CAD (coronary artery disease): Plan: S/p CABG. No chest pain, no indication of active issues. - Continue home meds. (4) Diabetic peripheral neuropathy associated with type 2 diabetes mellitus: Plan: A1c was 8.1% this month. - Hold home meds - controlled with Sliding scale insulin (5) Paroxysmal atrial fibrillation: Plan: - Continue home amiodarone, metoprolol, and Xarelto (6) Psoriatic arthritis: Plan: No indication for stress-dose steroids. - Continue chronic prednisone. Plan PT offered PT/OT and refused Admission and Anticipated Discharge Date Admission Date: October 18, 2021 Subjective pt feels improved, less fatigued pt has improved urine color no dysuria ESBL organism again identified. sensitive to Meropenem, Dr Damon office, her PA suggested 10-14 days of meropenem, will look to see if has outpt benefits Review of Systems Review of Systems: Mild distress and moderate fatigue no headache, no visual changes no speech or swallowing issues no chest pain, pressure or palpitations no shortness of breath, cough or wheezes no abdominal pain, nausea or vomiting, diarrhea or constipation no dysuria, hematuria or frequency no focal joint pain or swelling no back pain, CVA tenderness or radicular pain no bruising, bleeding or rashes no focal signs of weakness or numbness or altered sensation no complaints of anxiety or depression.. Physical Exam Physical Exam: The patient appeared well nourished and normally developed. Vital signs as documented. Head exam is normocephalic atraumatic Neck is without JVD, thyromegaly, or carotid bruits. Lungs are clear to auscultation, no focal loss of breath sounds Cardiac exam, Rhythm is regular.. No murmurs, rubs or gallops. Abdominal exam reveals normal bowel sounds, soft non tender, no masses Extremities are nonedematous and both pedal pulses are present Neurologic exam is alert and oriented, no focal loss of strength or sensation Skin is with pre hospital foot ulcer documented on wound care notes Psychologically is without concerns for anxiety or depression.. Results & Data Results & Data ([facility]) Vital Signs (Past 12 Hours) Vital Signs Temp Pulse Pulse Resp BP Pulse Ox O2 Del Method 10/21/21 07:40 97.7 F 73 20 136/76 91 Room Air 10/20/21 23:51 97.9 F 68 18 125/71 94 Room Air PG Care Time/CCT Total # of Minutes Spent Total Time Spent with Patient: Total time spent is greater than 50% in coordination of care (as documented) at patient's floor/unit and/or counseling patient: Coding Level of Care Code 36207 Subseq Hosp Care Lvl 2 Diagnoses UTI due to extended-spectrum beta lactamase (ESBL) producing Escherichia coli N39.0; B96.29; Z16.12 Neurogenic bladder N31.9 CAD (coronary artery disease) I25.10 Diabetic peripheral neuropathy associated with type 2 diabetes mellitus E11.42 Paroxysmal atrial fibrillation I48.0 Psoriatic arthritis L40.50
[2021-10-21] MEDS: MIRABEGRON ER 25 MG TAB PO SCH (22:04)
[2021-10-21] MEDS: RIVAROXABAN 20 MG TAB PO SCH (22:04)
[2021-10-21] MEDS: valACYclovir HCL 500 MG TABLET PO SCH (22:06)
[2021-10-21] MEDS: MAGNESIUM OXIDE 400 MG TAB PO SCH (22:06)
[2021-10-21] MEDS: ATORVASTATIN 40 MG TAB PO SCH (22:07)
[2021-10-21] MEDS: FAMOTIDINE 40 MG TABLET PO SCH (22:07)
[2021-10-22] MEDS: MEROPENEM 500 MG in SYRINGE 0 ML IV SCH ×3 (01:49→18:10)
[2021-10-22] MEDS: LEVOTHYROXINE SODIUM 100 MCG TABLET PO SCH (06:06)
[2021-10-22 07:20] LABS: Hematocrit (blood only) 38.2 % (34.1-44.9); Hemoglobin 12.7 g/dl (12.0-16.0); Mean Corpuscular Hemoglobin 31.5 pg (25.0-34.0); Mean Corpuscular Hgb Conc 33.2 g/dL (32.0-36.0); Mean Corpuscular Volume 94.8 fL (80.0-100.0); Mean Platelet Volume 11.8 fL (9.4-12.3); Platelet Count 204 K/uL (130-400); RDW Coefficient of Variation 14.4 % (11.5-14.5); RDW Standard Deviation 49.9 fL (36.4-46.3); Red Blood Count 4.03 M/uL (3.93-5.22)
--- NOTE | 2021-10-22 07:20 | Hospitalist Progress Note ---
Date of Service October 22, 2021 Assessment & Plan (1) UTI due to extended-spectrum beta lactamase (ESBL) producing Escherichia coli: Plan: Urinary tract infection associated with home straight catherization, present on admission. Pt has changes in urine color, neruogenic bladder and abnormal UA, no cystitis seen on CT - ESBL E Coli, Continue meropenem, return call pending from her ID doctor Sasha Van recommends 14 days of Meropenen LD 11/01/21 U/s guided central cath planned case management is working on outpt benefits for meropenem (2) Neurogenic bladder: Plan: Unclear cause, but has been a long-standing problem. Had bladder stimulator implanted at [place] ~[address] Aguirre. - Continue home mirabegron - Continue intermittent cathing while inpatient. (3) CAD (coronary artery disease): Plan: S/p CABG. No chest pain, no indication of active issues. - Continue home meds. (4) Diabetic peripheral neuropathy associated with type 2 diabetes mellitus: Plan: A1c was 8.1% this month. - Hold home meds - controlled with Sliding scale insulin (5) Paroxysmal atrial fibrillation: Plan: - Continue home amiodarone, metoprolol, and Xarelto (6) Psoriatic arthritis: Plan: No indication for stress-dose steroids. - Continue chronic prednisone. Plan PT offered PT/OT and refused Admission and Anticipated Discharge Date Admission Date: October 18, 2021 Subjective pt feels improved, less fatigued pt has improved urine color no dysuria ESBL organism again identified. sensitive to Meropenem, Dr Damon office, her PA suggested 10-14 days of meropenem, tenative to have home health sunday10/24/21, will have u/s guided central cath placed Review of Systems Review of Systems: Mild distress and moderate fatigue no headache, no visual changes no speech or swallowing issues no chest pain, pressure or palpitations no shortness of breath, cough or wheezes no abdominal pain, nausea or vomiting, diarrhea or constipation no dysuria, hematuria or frequency no focal joint pain or swelling no back pain, CVA tenderness or radicular pain no bruising, bleeding or rashes no focal signs of weakness or numbness or altered sensation no complaints of anxiety or depression.. Physical Exam Physical Exam: The patient appeared well nourished and normally developed. Vital signs as documented. Head exam is normocephalic atraumatic Neck is without JVD, thyromegaly, or carotid bruits. Lungs are clear to auscultation, no focal loss of breath sounds Cardiac exam, Rhythm is regular.. No murmurs, rubs or gallops. Abdominal exam reveals normal bowel sounds, soft non tender, no masses Extremities are nonedematous and both pedal pulses are present Neurologic exam is alert and oriented, no focal loss of strength or sensation Skin is with pre hospital foot ulcer documented on wound care notes Psychologically is without concerns for anxiety or depression.. Results & Data Results & Data ([facility]) Vital Signs (Past 12 Hours) Vital Signs Temp Pulse Pulse Resp BP Pulse Ox O2 Del Method 10/22/21 07:06 98.1 F 64 16 132/76 96 Room Air 10/21/21 22:41 97.3 F L 67 16 114/72 96 Room Air PG Care Time/CCT Total # of Minutes Spent Total Time Spent with Patient: Total time spent is greater than 50% in coordination of care (as documented) at patient's floor/unit and/or counseling patient: Coding Level of Care Code 88212 Subseq Hosp Care Lvl 2 Diagnoses UTI due to extended-spectrum beta lactamase (ESBL) producing Escherichia coli N39.0; B96.29; Z16.12 Neurogenic bladder N31.9 CAD (coronary artery disease) I25.10 Diabetic peripheral neuropathy associated with type 2 diabetes mellitus E11.42 Paroxysmal atrial fibrillation I48.0 Psoriatic arthritis L40.50
[2021-10-22 07:49] LABS: BUN Creatinine Ratio 22.4 (10-20); Creatinine Clr Calc Pharmacy 50.1 ml/min; Est GFR (African American) 64.5 ml/min; Est GFR (Non-African American) 55.6 ml/min; Potassium 3.5 mmol/L (3.5-5.1)
[2021-10-22] MEDS: AMIODARONE 200 MG TAB PO SCH ×2 (09:49→21:42)
[2021-10-22] MEDS: allopurinoL 100 MG TAB PO SCH (09:49)
[2021-10-22] MEDS: GABAPENTIN 400 MG CAP PO SCH ×3 (09:50→21:43)
[2021-10-22] MEDS: ASPIRIN 81 MG ECTAB PO SCH (09:50)
[2021-10-22] MEDS: DULoxetine HCL 30 MG CAP PO SCH (09:50)
[2021-10-22] MEDS: PANTOprazole 40 MG TAB PO SCH (09:51)
[2021-10-22] MEDS: PSYLLIUM or GUAR GUM FIBER POWDER PACKET PO SCH (09:51)
[2021-10-22] MEDS: predniSONE 5 MG TAB PO SCH (09:51)
[2021-10-22] MEDS: INSULIN ASPART PER UNIT SC SCH ×4 (09:51→21:20)
[2021-10-22] MEDS: METOPROLOL SUCC 50MG EXT REL TAB PO SCH ×2 (09:51→21:43)
[2021-10-22] MEDS: TRIAMTERENE/HCTZ 37.5/25MG TAB PO SCH (11:14)
[2021-10-22] MEDS: FAMOTIDINE 40 MG TABLET PO SCH (21:42)
[2021-10-22] MEDS: RIVAROXABAN 20 MG TAB PO SCH (21:42)
[2021-10-22] MEDS: valACYclovir HCL 500 MG TABLET PO SCH (21:42)
[2021-10-22] MEDS: MIRABEGRON ER 25 MG TAB PO SCH (21:43)
[2021-10-22] MEDS: ATORVASTATIN 40 MG TAB PO SCH (21:43)
[2021-10-22] MEDS: MAGNESIUM OXIDE 400 MG TAB PO SCH (21:43)
[2021-10-23] MEDS: MEROPENEM 500 MG in SYRINGE 0 ML IV SCH ×3 (01:57→20:17)
[2021-10-23] MEDS: LEVOTHYROXINE SODIUM 100 MCG TABLET PO SCH (06:49)
--- NOTE | 2021-10-23 07:55 | Hospitalist Progress Note ---
Date of Service October 23, 2021 Assessment & Plan (1) UTI due to extended-spectrum beta lactamase (ESBL) producing Escherichia coli: Plan: Urinary tract infection associated with home straight catherization, present on admission. Pt has changes in urine color, neruogenic bladder and abnormal UA, no cystitis seen on CT - ESBL E Coli, Continue meropenem, return call pending from her ID doctor Sasha Van recommends 14 days of Meropenen LD 11/01/21 U/s guided central cath placed case management is working on outpt benefits for meropenem (2) Neurogenic bladder: Plan: Unclear cause, but has been a long-standing problem. Had bladder stimulator implanted at [place] ~[address] Aguirre. - Continue home mirabegron - Continue intermittent cathing while inpatient. (3) CAD (coronary artery disease): Plan: S/p CABG. No chest pain, no indication of active issues. - Continue home meds. (4) Diabetic peripheral neuropathy associated with type 2 diabetes mellitus: Plan: A1c was 8.1% this month. - Hold home meds - controlled with Sliding scale insulin (5) Paroxysmal atrial fibrillation: Plan: - Continue home amiodarone, metoprolol, and Xarelto (6) Psoriatic arthritis: Plan: No indication for stress-dose steroids. - Continue chronic prednisone. Plan PT offered PT/OT and refused Admission and Anticipated Discharge Date Admission Date: October 18, 2021 Subjective pt feels improved pt has improved urine color no dysuria ESBL organism again identified. sensitive to Meropenem, Dr Van's office, her PA suggested 10-14 days of meropenem, tentative to have home health 10/24-05/17, u/s guided central cath placed Review of Systems Review of Systems: Mild distress and moderate fatigue no headache, no visual changes no speech or swallowing issues no chest pain, pressure or palpitations no shortness of breath, cough or wheezes no abdominal pain, nausea or vomiting, diarrhea or constipation no dysuria, hematuria or frequency no focal joint pain or swelling no back pain, CVA tenderness or radicular pain no bruising, bleeding or rashes no focal signs of weakness or numbness or altered sensation no complaints of anxiety or depression.. Physical Exam Physical Exam: The patient appeared well nourished and normally developed. Vital signs as documented. Head exam is normocephalic atraumatic Neck is without JVD, thyromegaly, or carotid bruits. Lungs are clear to auscultation, no focal loss of breath sounds Cardiac exam, Rhythm is regular.. No murmurs, rubs or gallops. Abdominal exam reveals normal bowel sounds, soft non tender, no masses Extremities are nonedematous and both pedal pulses are present Neurologic exam is alert and oriented, no focal loss of strength or sensation Skin is with pre hospital foot ulcer documented on wound care notes Psychologically is without concerns for anxiety or depression.. Results & Data Results & Data ([facility]) Vital Signs (Past 12 Hours) Vital Signs Temp Pulse Resp BP Pulse Ox O2 Del Method 10/23/21 07:15 98.2 F 65 16 132/67 94 Room Air 10/22/21 23:48 98.1 F 62 16 111/53 L 95 Room Air PG Care Time/CCT Total # of Minutes Spent Total Time Spent with Patient: Total time spent is greater than 50% in coordination of care (as documented) at patient's floor/unit and/or counseling patient: Coding Level of Care Code 18281 Subseq Hosp Care Lvl 2 Diagnoses UTI due to extended-spectrum beta lactamase (ESBL) producing Escherichia coli N39.0; B96.29; Z16.12 Neurogenic bladder N31.9 CAD (coronary artery disease) I25.10 Diabetic peripheral neuropathy associated with type 2 diabetes mellitus E11.42 Paroxysmal atrial fibrillation I48.0 Psoriatic arthritis L40.50
[2021-10-23 08:11] LABS: Creatinine Clr Calc Pharmacy 45.5 ml/min; Est GFR (African American) 57.3 ml/min; Est GFR (Non-African American) 49.5 ml/min
[2021-10-23] MEDS: GABAPENTIN 400 MG CAP PO SCH ×3 (09:17→20:28)
[2021-10-23] MEDS: allopurinoL 100 MG TAB PO SCH (09:17)
[2021-10-23] MEDS: DULoxetine HCL 30 MG CAP PO SCH (09:17)
[2021-10-23] MEDS: ASPIRIN 81 MG ECTAB PO SCH (09:17)
[2021-10-23] MEDS: AMIODARONE 200 MG TAB PO SCH ×2 (09:17→20:27)
[2021-10-23] MEDS: predniSONE 5 MG TAB PO SCH (09:18)
[2021-10-23] MEDS: TRIAMTERENE/HCTZ 37.5/25MG TAB PO SCH (09:18)
[2021-10-23] MEDS: METOPROLOL SUCC 50MG EXT REL TAB PO SCH ×2 (09:18→20:26)
[2021-10-23] MEDS: PSYLLIUM or GUAR GUM FIBER POWDER PACKET PO SCH (09:18)
[2021-10-23] MEDS: PANTOprazole 40 MG TAB PO SCH (09:18)
[2021-10-23] MEDS: INSULIN ASPART PER UNIT SC SCH ×4 (09:19→21:31)
[2021-10-23] MEDS: RIVAROXABAN 20 MG TAB PO SCH (20:26)
[2021-10-23] MEDS: ATORVASTATIN 40 MG TAB PO SCH (20:27)
[2021-10-23] MEDS: FAMOTIDINE 40 MG TABLET PO SCH (20:27)
[2021-10-23] MEDS: MAGNESIUM OXIDE 400 MG TAB PO SCH (20:27)
[2021-10-23] MEDS: MIRABEGRON ER 25 MG TAB PO SCH (20:28)
[2021-10-23] MEDS: valACYclovir HCL 500 MG TABLET PO SCH (20:29)
[2021-10-24] MEDS: MEROPENEM 500 MG in SYRINGE 0 ML IV SCH ×2 (02:41→10:28)
[2021-10-24] MEDS: LEVOTHYROXINE SODIUM 100 MCG TABLET PO SCH (06:21)
[2021-10-24] MEDS: AMIODARONE 200 MG TAB PO SCH (08:18)
[2021-10-24] MEDS: allopurinoL 100 MG TAB PO SCH (08:18)
[2021-10-24] MEDS: PSYLLIUM or GUAR GUM FIBER POWDER PACKET PO SCH (08:18)
[2021-10-24] MEDS: DULoxetine HCL 30 MG CAP PO SCH (08:19)
[2021-10-24] MEDS: GABAPENTIN 400 MG CAP PO SCH ×2 (08:19→13:47)
[2021-10-24] MEDS: ASPIRIN 81 MG ECTAB PO SCH (08:19)
[2021-10-24] MEDS: METOPROLOL SUCC 50MG EXT REL TAB PO SCH (08:20)
[2021-10-24] MEDS: predniSONE 5 MG TAB PO SCH (08:20)
[2021-10-24] MEDS: PANTOprazole 40 MG TAB PO SCH (08:20)
[2021-10-24] MEDS: TRIAMTERENE/HCTZ 37.5/25MG TAB PO SCH (08:20)
[2021-10-24] MEDS: INSULIN ASPART PER UNIT SC SCH ×2 (08:23→12:33)
[2021-10-24 09:05] LABS: Creatinine Clr Calc Pharmacy 45.1 ml/min; Est GFR (African American) 56.7 ml/min; Est GFR (Non-African American) 48.9 ml/min
--- NOTE | 2021-10-24 16:44 | Discharge Summary ---
Date of Service October 24, 2021 Admission HPI Per Admitting Provider 76yo F w/ DM2, paroxisymal afib, Charcot foot who presents with possible UTI. The patient has had many prior UTIs mostly with ESBL E. coli. She has bladder emptying issues which she explains as being due to "odd anatomy" for which she has had a bladder stimulator implanted in 2018 in [place] and follows with Dr. Aguirre. She follows with Sasha Van for recurrent UTIs and chronic RLE infection. She was in her normal state of health until last night when she noted bloody, brownish urine. It happened again this morning, so she presented to the ER. She is otherwise in her normal state of health without fevers, chills, sweats, any change in her chronic suprapubic pain. Principal Diagnosis esbl e coli uti associated with home self straight catheter use neurogenic bladder Discharge Exam The patient appeared stable Vital signs as documented. Lungs are clear to auscultation and appear unlabored Cardiac exam, Rhythm is regular.. No murmurs, rubs or gallops. Abdominal exam reveals normal bowel sounds, soft non tender, no masses Extremities are nonedematous and both pedal pulses are normal. Neurologic exam is alert and oriented, no focal loss of strength or sensation Skin is without bruises or rashes Psychologically is without concerns for anxiety or depression. ultrasound Sound guided central catheter placed in her left arm Discharge Data Allergies Allergy/AdvReac Type Severity Reaction Status Date / Time sulfamethoxazole Allergy Intermediate Hives Verified 10/18/21 17:44 [From Bactrim] trimethoprim [From Bactrim] Allergy Intermediate Hives Verified 10/18/21 17:44 tetanus toxoid, adsorbed Allergy Mild LOCALIZED Verified 10/18/21 17:44 REACTION, MADE HER FEEL SICK amoxicillin AdvReac Intermediate "GOT Verified 10/18/21 17:44 C-DIFF" minocycline AdvReac Mild HEADACHES Verified 10/18/21 17:44 tetracycline AdvReac Mild HEADACHES Verified 10/18/21 17:44 Consultations 10/18/21 17:39 ED Decision to Admit Stat Ordered Studies 10/18/21 15:34 CT abd pelvis wo con Stat Hospital Course (1) UTI due to extended-spectrum beta lactamase (ESBL) producing Escherichia coli: Urinary tract infection associated with home straight catherization, present on admission. Pt has changes in urine color, neruogenic bladder and abnormal UA, no cystitis seen on CT - ESBL E Coli, Continue meropenem, return call pending from her ID doctor Sasha Van recommends 14 days of Meropenen LD 11/01/21 U/s guided central cath placed case management is working on outpt benefits for meropenem (2) Neurogenic bladder: Unclear cause, but has been a long-standing problem. Had bladder stimulator implanted at [place] ~[address] Aguirre. - Continue home mirabegron - Continue intermittent cathing while inpatient. (3) CAD (coronary artery disease): S/p CABG. No chest pain, no indication of active issues. - Continue home meds. (4) Diabetic peripheral neuropathy associated with type 2 diabetes mellitus: A1c was 8.1% this month. - dulaglutide and metformin (5) Paroxysmal atrial fibrillation: - Continue home amiodarone, metoprolol, and Xarelto( dose reduced due to renal function reduction) (6) Psoriatic arthritis: No indication for stress-dose steroids. - Continue chronic prednisone. Plan Patient is prehospital ulceration on her right foot for which she wears a boot. patients ulceration was seen and inspected by wound care and felt to be in appropriate condition Total Time Total Time Spent Total Time Spent (In Minutes): It required greater than 30 minutes to prepare this patient for discharge Discharge Plan Discharge Items Patient Disposition: Home - Self-Care Reason For Visit: URINARY SYMPTOMS Discharge Diagnosis: esbl E coli neurogenic bladder chronic foot ulcer Activity: Per Instructions section Non-emergency contact: Primary Care Provider Call non-emergency contact if: your symptoms worsen Follow-up/Referrals: Reno Perez MD [Primary Care Provider] - 10/28/21 10:45 am Sasha Van DO [Physician] - 11/01/21 12:00 pm Diet: Carb Consistent or DM2 Ambulatory Orders: Basic Metabolic Panel (Routine) Timeframe: 3 Days Location: Determined by Patient Ordered By: Jake Mehta Complete Blood Count no Diff (Routine) Timeframe: 3 Days Location: Determined by Patient Ordered By: Jake Mehta Addtl Attending Provider Instructions: please complete your antibiotics and follow up with Dr Rivas Please do not have your iv line pulled until after your appointment with Dr Stainbrooke we have reduced your blood thinner based on your renal function, this can be monitored by your family doctor please have blood work checked the end of this week Pending Studies at Discharge: No Stand-Alone Forms: My [facility] [employer], Smoking Cessation Medications and DC Order Prescriptions: New meropenem 500 mg recon soln 500 mg IV Q8H Qty: 25 0RF Xarelto 15 mg tablet 15 mg PO DAILY Qty: 30 5RF Rx Instructions: must administer with evening meal Continued prednisone 5 mg tablet 5 mg PO QAM Qty: 90 3RF nitroglycerin [Nitrostat] 0.4 mg tablet, sublingual 0.4 mg Sublingual Q5M PRN (Reason: Chest Pain) Qty: 25 6RF Rx Instructions: Call 911 for chest pain that exceeds 3 doses metoprolol succinate 50 mg tablet extended release 24 hr 50 mg PO BID Qty: 180 3RF valacyclovir 500 mg tablet 500 mg PO QPM 90 Days Qty: 90 4RF Rx Instructions: Take 1 tablet by mouth daily. amiodarone 200 mg tablet 200 mg PO BID Qty: 180 3RF atorvastatin 80 mg tablet 80 mg PO HS Qty: 90 3RF Rx Instructions: TAKE 1 TABLET BY MOUTH AT BEDTIME allopurinol 100 mg tablet 100 mg PO QAM Qty: 90 3RF levothyroxine 100 mcg tablet 100 mcg PO DAILY Qty: 90 3RF (DME) OneTouch Verio test strips Strip See Rx Instructions .ROUTE .MEDSUPPLY Qty: 100 3RF Dose Instruction: As directed Rx Instructions: test 1 time daily (DME) lancets [OneTouch Delica Lancets] 30 gauge misc See Rx Instructions .ROUTE .MEDSUPPLY Qty: 100 3RF Dose Instruction: As directed Rx Instructions: Test once daily metformin 500 mg tablet 500 mg PO QPM Qty: 90 3RF Premarin 0.625 mg/gram cream 0.625 mg vaginal 2XWK Rx Instructions: ON HOLD D/T CATHING SELF. off 5 days; repeat cycle Myrbetriq 50 mg tablet extended release 24 hr 50 mg PO QPM risedronate 150 mg tablet 150 mg PO WK Label Comments: takes on sunday qam Rx Instructions: ON HOLD dulaglutide 3 mg/0.5 mL pen injector 3 mg SQ WEEKLY Rx Instructions: SUNDAYS multivitamin Tablet 1 tab PO QPM gabapentin 400 mg Capsule 400 mg PO TID potassium 99 mg Tablet 1 tab PO HS magnesium 250 mg Tablet 250 mg PO HS cyanocobalamin-cobamamide [B-12 Plus] 5,000-100 mcg Tablet, Sublingual 1,000 mcg sublingual QAM triamcinolone acetonide [Nasacort] 55 mcg Aerosol,[place] 1 spray INTRANASAL HS calcium carbonate-vitamin D3 [Calcium 500 + D] 500 mg(1,250mg) -200 unit tablet 2 tab PO QPM aspirin 81 mg Tablet,Delayed Release (Dr/Ec) 81 mg PO QAM [id number] 3.5-400-5,000 [id number] Ointment In Packet 1 applic TOPICAL DIRECTED famotidine 40 mg tablet 40 mg PO QPM ferrous sulfate [iron] 325 mg (65 mg iron) tablet 325 mg PO Q OTHER DAY Label Comments: takes in the am esomeprazole magnesium [Nexium] 40 mg capsule,delayed release(DR/EC) 40 mg PO QAM triamterene-hydrochlorothiazid 37.5-25 mg tablet 1 tab PO QAM duloxetine [Cymbalta] 30 mg capsule,delayed release(DR/EC) 30 mg PO QAM Discontinued Xarelto 20 mg tablet 20 mg PO QPM Qty: 90 3RF cefadroxil 1 gram tablet 1,000 mg PO QPM Qty: 90 3RF methenamine hippurate 1 gram tablet 1 g PO BID Qty: 60 5RF Discharge Orders: Discharge Order (Routine); Ordered 10/24/21 Ordered By: Jake Castellano/Other Patient Handouts: Self-Catheterization for Women, Anatomy of the Female Urinary Tract, ED Urinary Retention, Female Admission Data Admit Date/Time: 10/18/21 18:13 Attending Provider: Jake Mehta Admit Provider: Alfredito Jones Primary Care Provider: Reno Perez Other Providers: Alfredito Jones ; Mallika,Home Health Other Interventions: Discharge Summary Assessment (RN) Last Done: 10/24/21 15:22 Coding Level of Care Code D/C DAY MANAGEMENT >30 MINS Diagnoses UTI due to extended-spectrum beta lactamase (ESBL) producing Escherichia coli N39.0; B96.29; Z16.12 Neurogenic bladder N31.9 CAD (coronary artery disease) I25.10 Diabetic peripheral neuropathy associated with type 2 diabetes mellitus E11.42 Paroxysmal atrial fibrillation I48.0 Psoriatic arthritis L40.50
== END 2021-10-24 17:05 | disposition home health service (06) | DRG 699 ==
LOC: ED 15:28 → EDINP 18:13 → SUATTDRO 18:13 → 3W 23:23
DX: Z16.12 Extended spectrum beta lactamase (ESBL) resistance; Z79.82 Long term (current) use of aspirin; N31.9 Neuromuscular dysfunction of bladder, unspecified; L40.50 Arthropathic psoriasis, unspecified; Z88.2 Allergy status to sulfonamides; E11.610 Type 2 diabetes mellitus with diabetic neuropathic arthropathy; I25.2 Old myocardial infarction; E87.2 Acidosis; B96.29 Other Escherichia coli [E. coli] as the cause of diseases classified elsewhere; L84 Corns and callosities; T83.598A Infection and inflammatory reaction due to other prosthetic device, implant and graft in urinary system, initial encounter; Z88.0 Allergy status to penicillin; E11.42 Type 2 diabetes mellitus with diabetic polyneuropathy; Z95.1 Presence of aortocoronary bypass graft; Z88.7 Allergy status to serum and vaccine; Y92.009 Unspecified place in unspecified non-institutional (private) residence as the place of occurrence of the external cause; I25.10 Atherosclerotic heart disease of native coronary artery without angina pectoris; Z91.19 Patient's noncompliance with other medical treatment and regimen; E11.621 Type 2 diabetes mellitus with foot ulcer; Z79.890 Hormone replacement therapy; I48.0 Paroxysmal atrial fibrillation; L97.529 Non-pressure chronic ulcer of other part of left foot with unspecified severity; N39.0 Urinary tract infection, site not specified; Z79.84 Long term (current) use of oral hypoglycemic drugs; Z88.1 Allergy status to other antibiotic agents; Z96.652 Presence of left artificial knee joint; E03.9 Hypothyroidism, unspecified; Z79.899 Other long term (current) drug therapy

== ENCOUNTER 2022-03-01 21:43 | Inpatient (IN) ==
[2022-03-01] MEDS ORDERED: CEFEPIME 2,000 MG/20 ML VIAL IV STA (21:52)
[2022-03-01] MEDS ORDERED: SODIUM CHLORIDE 0.9% 1000ML 1,000 ML IV SCH (22:00)
[2022-03-01 22:19] LABS: Basophils # (auto) 0.04 K/uL (0-0.2); Basophils % (auto) 0.2 %; Eosinophils # (auto) 0.03 K/uL (0-0.50); Eosinophils % (auto) 0.2 %; Hemoglobin 11.5 g/dl (12.0-16.0); Immature Granulocytes # (auto) 0.37 K/uL (0.00-0.02); Immature Granulocytes % (auto) 2.3 %; Lymphocytes # (auto) 0.28 K/uL (1.2-3.4); Lymphocytes % (auto) 1.7 %; Mean Corpuscular Hemoglobin 32.8 pg (25.0-34.0); Mean Corpuscular Hgb Conc 33.8 g/dL (32.0-36.0); Mean Corpuscular Volume 96.9 fL (80.0-100.0); Mean Platelet Volume 11.9 fL (9.4-12.3); Monocytes # (auto) 0.96 K/uL (0.24-0.82); Neutrophils # (auto) 14.33 K/uL (1.4-6.5); Neutrophils % (auto) 89.6 %; Nucleated RBC # (auto) 0.05 K/uL (0-0); Nucleated RBC % (auto) 0.3 %; Platelet Count 281 K/uL (130-400); RDW Coefficient of Variation 14.9 % (11.5-14.5); RDW Standard Deviation 52.5 fL (36.4-46.3); Red Blood Count 3.51 M/uL (3.93-5.22); White Blood Count 16.01 K/ul (4.8-10.8)
[2022-03-01 22:28] LABS: Base Excess VBG -0.8 mEq/L; HCO3 VBG 24 mmol/L; Oxygen Saturation VBG 67.7 %; PCO2 VBG 41 mmHg (38-50); PO2 VBG 37 mmHg; pH VBG 7.38 (7.36-7.41)
[2022-03-01] MEDS ORDERED: VANCOMYCIN CONSULT ACTIVE PRN (22:38)
[2022-03-01] MEDS ORDERED: VANCOMYCIN HCL 2,250 MG in SODIUM CHLORIDE 0.9% 500 ML IV ONE (22:38)
[2022-03-01] MEDS ORDERED: SODIUM CHLORIDE 0.9% 1000ML 1,000 ML IV ONE (22:38)
[2022-03-01 22:42] LABS: Appearance Urine Turbid (Clear); Bacteria Urine Automated Negative (Negative); Bilirubin Urine Negative (Negative); Blood Urine Negative (Negative); Color Urine Yellow; Epithelial Cell Urine Auto >30 /lpf (0-5); Glucose Urine UA Negative (Negative); Ketones Urine Negative (Negative); Leukocyte Esterase Urine 2+ (Negative); Nitrite Urine Negative (Negative); Protein Urine 1+ (Negative); Specific Gravity Urine 1.012 (1.000-1.030); Urobilinogen Urine Negative (Negative); WBC Urine Automated >30 /hpf (0-5); pH Urine 5.5 (4.5-7.5)
[2022-03-01 22:52] LABS: Alanine Aminotransferase 200 U/L (7-52); Albumin Level 3.3 gm/dl (3.4-5.0); Alkaline Phosphatase 95 U/L (34-104); Anion Gap 12 (3-11); BUN Creatinine Ratio 12.8 (10-20); Bilirubin,Total 1.8 mg/dl (0.2-1.0); Blood Urea Nitrogen 28 mg/dl (6-23); Carbon Dioxide 23 mmol/L (21-32); Chloride 96 mmol/L (98-107); Creatinine Clr Calc Pharmacy 22.6 ml/min; Est GFR (African American) 24.4 ml/min; Glucose 158 mg/dl (70-99(Fasting)); Magnesium 1.6 mg/dl (1.7-2.4); Sodium 131 mmol/L (136-145); Total Protein 6.2 gm/dl (6.0-8.3); Troponin I High Sensitivity 11.6 pg/ml (0-14)
[2022-03-01 22:57] LABS: INR 1.3 (0.9-1.1); Partial Thromboplastin Time 28.6 Seconds (21.0-31.0); Prothrombin Time 13.3 Seconds (9.0-12.0)
[2022-03-01 22:59] LABS: Renal Epithelial Cells Urine 0-5 /lpf (0-5)
[2022-03-01] MEDS ORDERED: SODIUM CHLORIDE 0.9% 1000ML 500 ML IV ONE (23:18)
[2022-03-02 00:24] LABS: Bilirubin Direct 0.4 mg/dl (0-0.2); Potassium 4.5 mmol/L (3.5-5.1)
[2022-03-02] MEDS: SODIUM CHLORIDE 0.9% 500 ML IV SCH ×3 (00:31→19:44)
--- NOTE | 2022-03-02 00:51 | History & Physical Report ---
Date of Service March 02, 2022 Assessment & Plan (1) Septic shock: Plan: Septic shock secondary to diabetic foot ulcer of left foot- CT scan is negative for osteomyelitis Patient remained hypotensive after receiving 3 and half liters of normal saline in ED She is started on Levophed and admitted to the ICU (2) Diabetes: Plan: Hold metformin and dulaglutide Placed on ICU hyperglycemic protocol (3) Diabetic foot ulcer: Plan: Patient did receive 1700 mg of Dalvance IV at 07 100 in the outpatient setting Will place on daptomycin IV 6 mg kilogram IV starting at 07 100 on 03/03 Continue cefepime 2 g IV every 12 hours (4) CAD (coronary artery disease): Plan: CAD/hypertension/atrial fibrillation- Rate controlled and hypotensive Holding amiodarone and metoprolol succinate overnight May require IV infusion in the morning (5) Diabetic peripheral neuropathy associated with type 2 diabetes mellitus: Plan: Hold gabapentin until taking p.o. (6) Dyslipidemia: Plan: Hold atorvastatin until taking p.o. (7) Hypothyroidism: Plan: Hold levothyroxine (8) GERD without esophagitis: Plan: Placed on famotidine 20 mg IV every 12 hours (9) Charcot's joint of foot in type 2 diabetes mellitus: (10) Hypertension: Plan: See above (11) Gout: (12) Fibromyalgia: History of Present Illness Chief Complaint: The patient is brought to the emergency department due to altered mental status, confusion, fever and chills, left foot ulcer. The patient arrived in the emergency department via EMS, and was too confused to contribute to her HPI or review of systems. EMS report that she was hypotensive systolic in the low 80s in the field. She reportedly had been given Dalvance 1700 mg at 07 100 for an infection of her right foot this morning. reports that she fell off the toilet today. Primary Care Provider: Reno Perez MD The patient is a 76-year-old female with a past medical history including history of osteomyelitis, diabetic foot ulcer, gout, colon polyps, CAD, diabetic peripheral neuropathy, dyslipidemia, fibromyalgia, foot deformity, hypothyroidism, depression, vitamin B12 deficiency, GERD without esophagitis, neurogenic bladder, diabetes mellitus, recurrent UTI, rectal incontinence, Charcot's joint of foot, hypertension, anemia, paroxysmal atrial fibrillation and psoriatic arthritis. Patient is very confused upon arrival to the emergency department, is unable to contribute her HPI or review of systems. Presentation is from EMS and as noted above. Allergies Allergy/AdvReac Type Severity Reaction Status Date / Time sulfamethoxazole Allergy Intermediate Hives Verified 03/01/22 08:43 [From Bactrim] trimethoprim [From Bactrim] Allergy Intermediate Hives Verified 03/01/22 08:43 tetanus toxoid, adsorbed Allergy Mild LOCALIZED Verified 03/01/22 08:43 REACTION, MADE HER FEEL SICK amoxicillin AdvReac Intermediate "GOT Verified 03/01/22 08:43 C-DIFF" minocycline AdvReac Mild HEADACHES Verified 03/01/22 08:43 tetracycline AdvReac Mild HEADACHES Verified 03/01/22 08:43 Home Medications Medication Instructions Recorded Confirmed Type gabapentin 400 mg capsule 400 mg PO TID 02/19/18 03/02/22 History magnesium 250 mg tablet 250 mg PO HS 02/19/18 03/02/22 History multivitamin 1 tab PO QPM 02/19/18 03/02/22 History potassium 99 mg tablet 1 tab PO HS 02/19/18 03/02/22 History cyanocobalamin (B12)-cobamamide 1,000 mcg sublingual QAM 03/12/18 03/02/22 History 5,000 mcg-100 mcg sublingual tablet (B-12 Plus) triamcinolone acetonide 55 mcg 1 spray intranasal HS 03/12/18 03/02/22 History nasal spray aerosol (Nasacort) risedronate 150 mg tablet 150 mg PO WK 02/23/20 03/02/22 History nitroglycerin 0.4 mg sublingual 0.4 mg sublingual Q5M PRN Chest 03/29/20 03/02/22 Rx tablet (Nitrostat) Pain #25 tabs calcium carbonate 500 mg-vitamin 2 tab PO QPM 06/14/20 03/02/22 History D3 5 mcg (200 unit) tablet (Calcium 500 + D) conjugated estrogens 0.625 mg/gram 0.625 mg vaginal 2XWK 03/07/21 03/02/22 History vaginal cream (Premarin) mirabegron 50 mg tablet,extended 50 mg PO QPM 04/06/21 03/02/22 History release 24 hr (Myrbetriq) duloxetine 30 mg capsule,delayed 30 mg PO QAM 05/16/21 03/02/22 History release (Cymbalta) esomeprazole magnesium 40 mg 40 mg PO QAM 05/16/21 03/02/22 History capsule,delayed release (Nexium) ferrous sulfate 325 mg (65 mg 325 mg PO Q OTHER DAY 05/16/21 03/02/22 History iron) tablet (iron) triamterene 37.5 1 tab PO QAM 05/16/21 03/02/22 History mg-hydrochlorothiazide 25 mg tablet valacyclovir 500 mg tablet 500 mg PO QPM 90 days #90 tabs 07/11/21 03/02/22 Rx amiodarone 200 mg tablet 200 mg PO BID #180 tabs 07/12/21 03/02/22 Rx atorvastatin 80 mg tablet 80 mg PO HS #90 tabs 08/23/21 03/02/22 Rx allopurinol 100 mg tablet 100 mg PO QAM #90 tabs 08/24/21 03/02/22 Rx levothyroxine 100 mcg tablet 100 mcg PO DAILY #90 tabs 08/25/21 03/02/22 Rx metformin 500 mg tablet 500 mg PO QPM #90 tabs 09/21/21 03/02/22 Rx neomycin-bacitracn Zn-polymyxn 3.5 1 applic topical DIRECTED 10/18/21 03/02/22 History mg-400 unit-5,000 unit top oint pkt AFFECTED AREAS rivaroxaban 15 mg tablet (Xarelto) 15 mg PO DAILY #30 tabs 10/24/21 03/02/22 Rx dulaglutide 3 mg/0.5 mL 3 mg (0.5 mL) subcut WEEKLY #2 mL 01/19/22 03/02/22 Rx subcutaneous pen injector famotidine 40 mg tablet See Rx Instructions .Route 01/24/22 03/02/22 Rx .COMPLEX #90 tabs methenamine hippurate 1 gram tablet 1 g PO BID #60 tabs 01/30/22 03/02/22 Rx metoprolol succinate 50 mg 50 mg PO BID #180 tabs 02/03/22 03/02/22 Rx tablet,extended release 24 hr ondansetron 4 mg disintegrating 4 mg PO Q8H PRN nausea and 02/28/22 03/02/22 Rx tablet vomiting 3 days #10 tabs cefadroxil 1 gram tablet 1 g PO QPM 03/02/22 03/02/22 History Past Med/Surg History Medical History Anemia hx Arthritis CAD (coronary artery disease) CABG X 3 (2014) Charcot's joint of foot in type 2 diabetes mellitus 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 coli infection Hyperlipidemia Hypertension Hypothyroidism IBS (irritable bowel syndrome) Incomplete emptying of bladder Myocardial Infarction 2015 On antibiotic therapy preventative for recurring wound infection to rt foot and recurring UTIs Osteoarthritis Paroxysmal atrial fibrillation dx 2015 - on xarelto - follows with Dr. Oropeza Psoriatic arthritis ON CHRONIC PREDNISONE Rectal ulcer Sensorineural hearing loss of both ears Stress incontinence in female Wheelchair dependence pt states she can stand and pivot on her own Surgical History Charcot's joint of foot RIGHT FOOT (4 SURGERIES TOTAL) History of adenoidectomy History of ankle surgery LEFT History of bilateral tubal ligation History of bladder repair surgery R/T URINARY LEAKAGE History of cardiac cath 2014= NO STENTS History of carpal tunnel surgery of left wrist (~04/20/20) History of cataract surgery RIGHT/LEFT History of colonoscopy History of coronary artery bypass graft CABG X 3 (2014) History of dilatation and curettage History of repair of rotator cuff RIGHT. 03/12/2018. DONE AT [facility] [place]. BLOCK WITH LMA. NO ISSUES. History of surgery BLADDER STIMULATOR IMPLANTED IN BACK- PER PATIENT "NOT CURRENTLY WORKING" History of tonsillectomy History of tooth extraction History of total knee replacement LEFT Family History Mother Family hx of colon cancer Cardiac disorder Colorectal cancer Cancer Hypertension Father Cardiac disorder Lung cancer Hypertension Grandmother (Maternal) Stroke Other No family history of adverse response to anesthesia Denies family history of Ovarian cancer Breast cancer Social History Smoking Status: Never smoker Second Hand Exposure: No; Hx Alcohol Use: Yes Alcohol type: wine Hx Substance Use: No Preferred Language: [place] Communication Ability: Effective Visual Impairment: Limited Hearing Ability: Use of Hearing Aid Dress Cap Maker Required: No Beliefs That Will Affect Care: None marital status: Current Living Situation: Spouse current occupational status: retired Other Information That Helps Us Care for You: No Feels Safe at Home: Yes Safety Concerns: Feels Safe At This Time caffeine: No Assistive Devices: Walker and Wheelchair Review of Systems Review of Systems: Unobtainable due to cognitive status Physical Exam Physical Exam: The patient is confused and disoriented, well developed and well nourished, normocephalic and atraumatic, lying in bed and in no acute distress. HEENT--PERRL, EOMI, mucous membranes and oropharynx dry. Neck--supple. No JVD. No bruits. Thyroid normal, trachea midline, no adenopathy. Heart--normal S1 and S2. No murmurs, rubs or gallops. Lungs--clear bilaterally, no respiratory distress, no accessory muscle use. Abdomen--normal bowel sounds and soft. Nontender. Nondistended Extremities/dermatologic-left base of great toe and first MTP with large area of eschar and surrounding erythema. Neurologic--limited exam Rheumatologic--limited exam Psychiatric--confused and disoriented Results & Data Results & Data ([facility]) Vital Signs (Past 12 Hours) Vital Signs Temp Pulse Pulse Resp BP BP Pulse Ox 03/02/22 00:40 67 16 96 03/02/22 00:32 89/41 L 03/02/22 00:32 68 15 97 03/02/22 00:30 68 16 97 03/02/22 00:20 69 19 96 03/02/22 00:15 68 17 97 03/02/22 00:15 89/46 L 03/02/22 00:10 68 19 97 03/02/22 00:00 68 19 97 03/02/22 00:00 92/47 L 03/01/22 23:50 69 17 97 03/01/22 23:45 94/50 L 03/01/22 23:45 71 18 97 03/01/22 23:40 70 16 97 03/01/22 23:30 68 19 96 03/01/22 23:30 99/47 L 03/01/22 23:20 70 18 97 03/01/22 23:15 97/49 L 03/01/22 23:15 69 17 98 03/01/22 23:10 67 15 96 03/01/22 23:07 96 03/01/22 23:06 93/46 L 03/01/22 22:49 79/52 L 03/01/22 22:49 94 03/01/22 22:40 87/40 L 96 03/01/22 22:40 69 14 03/01/22 22:30 69 19 95 03/01/22 22:23 83/38 L 03/01/22 22:23 69 18 93 03/01/22 22:18 82/41 L 03/01/22 22:18 70 19 03/01/22 22:03 70 21 93 03/01/22 22:03 183/148 H 03/01/22 22:00 70 21 91 03/01/22 21:58 70 20 88 L 03/01/22 22:07 70 20 82/41 L 95 03/01/22 22:09 03/01/22 21:27 38 C H 70 20 183/148 H 93 O2 Del Method O2 Flow Rate 03/02/22 00:40 03/02/22 00:32 03/02/22 00:32 03/02/22 00:30 03/02/22 00:20 03/02/22 00:15 03/02/22 00:15 03/02/22 00:10 03/02/22 00:00 03/02/22 00:00 03/01/22 23:50 03/01/22 23:45 03/01/22 23:45 03/01/22 23:40 03/01/22 23:30 03/01/22 23:30 03/01/22 23:20 03/01/22 23:15 03/01/22 23:15 03/01/22 23:10 03/01/22 23:07 03/01/22 23:06 03/01/22 22:49 03/01/22 22:49 03/01/22 22:40 03/01/22 22:40 03/01/22 22:30 03/01/22 22:23 03/01/22 22:23 03/01/22 22:18 03/01/22 22:18 03/01/22 22:03 03/01/22 22:03 03/01/22 22:00 03/01/22 21:58 03/01/22 22:07 Room Air 03/01/22 22:09 Nasal Cannula 2 03/01/22 21:27 Nasal Cannula 2 Laboratory Results Laboratory Results WBC 16.47 K/ul (4.8-10.8) H 03/02/22 04:31 RBC 3.56 M/uL (3.93-5.22) L 03/02/22 04:31 Hgb 11.5 g/dl (12.0-16.0) L 03/02/22 04:31 Hct 34.1 % (34.1-44.9) 12 04:31 MCV 95.8 fL (80.0-100.0) 03/02/22 04:31 MCH 32.3 pg (25.0-34.0) 03/02/22 04:31 MCHC 33.7 g/dL (32.0-36.0) 03/02/22 04:31 RDW Std Deviation 51.4 fL (36.4-46.3) H 03/02/22 04:31 RDW Coeff of Kristen 14.7 % (11.5-14.5) H 03/02/22 04:31 Plt Count 213 K/uL (130-400) 03/02/22 04:31 MPV 11.9 fL (9.4-12.3) 03/02/22 04:31 Immature Gran % (Auto) 0.9 % 03/02/22 04:31 Neut % (Auto) 86.5 % 03/02/22 04:31 Lymph % (Auto) 5.3 % 03/02/22 04:31 Webb % (Auto) 6.7 % 03/02/22 04:31 Eos % (Auto) 0.4 % 03/02/22 04:31 Baso % (Auto) 0.2 % 03/02/22 04:31 Neut # (Auto) 14.24 K/uL (1.4-6.5) H 03/02/22 04:31 Lymph # (Auto) 0.87 K/uL (1.2-3.4) L 03/02/22 04:31 Webb # (Auto) 1.11 K/uL (0.24-0.82) H 03/02/22 04:31 Eos # (Auto) 0.07 K/uL (0-0.50) 03/02/22 04:31 Baso # (Auto) 0.03 K/uL (0-0.2) 03/02/22 04:31 Immature Gran # (Auto) 0.15 K/uL (0.00-0.02) H 03/02/22 04:31 Absolute Nucleated RBC 0.02 K/uL (0-0) H 03/02/22 04:31 Nucleated RBC % (auto) 0.1 % 03/02/22 04:31 PT 13.1 Seconds (9.0-12.0) H 03/02/22 04:31 INR 1.2 (0.9-1.1) H 03/02/22 04:31 APTT 30.7 Seconds (21.0-31.0) 03/02/22 04:31 PTT Ratio 1.1 03/02/22 04:31 VBG pH 7.38 (7.36-7.41) 03/01/22 22:13 VBG pCO2 41 mmHg (38-50) 03/01/22 22:13 VBG pO2 37 mmHg 03/01/22 22:13 VBG HCO3 24 mmol/L 03/01/22 22:13 VBG O2 Saturation 67.7 % 03/01/22 22:13 VBG Base Excess -0.8 mEq/L 03/01/22 22:13 Sodium 131 mmol/L (136-145) L 03/01/22 22:02 Potassium 4.5 mmol/L (3.5-5.1) 03/01/22 23:27 Chloride 96 mmol/L (98-107) L 03/01/22 22:02 Carbon Dioxide 23 mmol/L (21-32) 03/01/22 22:02 Anion Gap 12 (3-11) H 03/01/22 22:02 BUN 28 mg/dl (6-23) H 03/01/22 22:02 Creatinine 2.19 mg/dl (0.6-1.2) H 03/01/22 22:02 Est Cr Clr Drug Dosing 22.6 ml/min 03/01/22 22:02 Est GFR ( Amer) 24.4 ml/min 03/01/22 22:02 Est GFR (Non-Af Amer) 21.0 ml/min 03/01/22 22:02 BUN/Creatinine Ratio 12.8 (10-20) 03/01/22 22:02 Glucose 158 mg/dl (70-99(Fasting)) H 03/01/22 22:02 POC Glucose 167 mg/dl (70-99) H 03/02/22 04:30 Lactate 3.3 mmol/L (0.4-2.0) H* 03/02/22 00:30 Calcium 8.0 mg/dl (8.5-10.1) L 03/01/22 22:02 Magnesium 1.6 mg/dl (1.7-2.4) L 03/01/22 22:02 Total Bilirubin 1.8 mg/dl (0.2-1.0) H 03/01/22 22:02 Direct Bilirubin 0.4 mg/dl (0-0.2) H 03/01/22 23:27 AST 262 U/L (13-39) H 03/01/22 23:27 ALT 200 U/L (7-52) H 03/01/22 22:02 Alkaline Phosphatase 95 U/L (34-104) 03/01/22 22:02 Total Creatine Kinase 87 U/L (26-192) 03/01/22 23:27 Troponin I High Sens 11.6 pg/ml (0-14) 03/01/22 22:02 Total Protein 6.2 gm/dl (6.0-8.3) 03/01/22 22:02 Albumin 3.3 gm/dl (3.4-5.0) L 03/01/22 22:02 Procalcitonin 112.87 ng/ml (0-0.5) H 03/01/22 22:02 Urine Color Yellow 03/01/22 22:12 Urine Appearance Turbid (Clear) A 03/01/22 22:12 Urine pH 5.5 (4.5-7.5) 03/01/22 22:12 Ur Specific [place] 1.012 (1.000-1.030) 03/01/22 22:12 Urine Protein 1+ (Negative) H 03/01/22 22:12 Urine Glucose (UA) Negative (Negative) 03/01/22 22:12 Urine Ketones Negative (Negative) 03/01/22 22:12 Urine Blood Negative (Negative) 03/01/22 22:12 Urine Nitrite Negative (Negative) 03/01/22 22:12 Urine Bilirubin Negative (Negative) 03/01/22 22:12 Urine Urobilinogen Negative (Negative) 03/01/22 22:12 Ur Leukocyte Esterase 2+ (Negative) H 03/01/22 22:12 Urine WBC (Auto) >30 /hpf (0-5) H 03/01/22 22:12 Urine RBC (Auto) 10-30 /hpf (0-4) H 03/01/22 22:12 U Hyaline Cast (Auto) 1-5 /lpf (0-5) 03/01/22 22:12 U Epithel Cells (Auto) >30 /lpf (0-5) H 03/01/22 22:12 Urine Bacteria (Auto) Negative (Negative) 03/01/22 22:12 Ur Renal Epithelial Cell 0-5 /lpf (0-5) 03/01/22 22:12 Urine Yeast Budding (None Prsent) A 03/01/22 22:12 SARS-CoV-2, RNA, NAAT NEGATIVE (NEGATIVE) 03/01/22 22:46 Code Status & VTE Plan Code Status Full code VTE Prophylaxis Plan VTE Prophylaxis will be ordered: Yes
[2022-03-02] MEDS ORDERED: STAT IV Infusion **Titration per Protocol STA (01:04)
[2022-03-02] MEDS ORDERED: MAGNESIUM SULFATE 1GM / D5W BAG IV ONE (01:08)
[2022-03-02] MEDS: NOREPINEPHRINE/D5W 4 MG/250 ML PLCT IV SCH ×2 (01:15→16:00)
--- NOTE | 2022-03-02 01:33 | Emergency Department Note ---
History of Present Illness General Chief complaint: Altered Mental Status Stated complaint: AMS, Fever, Infection Time Seen by Provider: 03/01/22 21:55 Source: family and EMS History of Present Illness Provider complaint: Altered mental status fever Onset (ago): day(s) 1 Associated symptoms: + confusion, + fever/chills and + rash; no cough, no nausea/vomiting or no seizure 76-year-old female presents emergency department for altered mental status and fever. Patient arrives via EMS. EMS called and stated the patient was having altered mental status fever and was hypotensive. Patient was recently treated with Dalvance today for wound on her right foot. came at bedside and stated that the patient did fall off the toilet today. Patient is on blood thinners. EMS initiated treatment with IV fluids and IV Tylenol. Home Medications Medication Instructions Recorded Confirmed Type gabapentin 400 mg capsule 400 mg PO TID 02/19/18 03/02/22 History magnesium 250 mg tablet 250 mg PO HS 02/19/18 03/02/22 History multivitamin 1 tab PO QPM 02/19/18 03/02/22 History potassium 99 mg tablet 1 tab PO HS 02/19/18 03/02/22 History cyanocobalamin (B12)-cobamamide 1,000 mcg sublingual QAM 03/12/18 03/02/22 History 5,000 mcg-100 mcg sublingual tablet (B-12 Plus) triamcinolone acetonide 55 mcg 1 spray intranasal HS 03/12/18 03/02/22 History nasal spray aerosol (Nasacort) risedronate 150 mg tablet 150 mg PO WK 02/23/20 03/02/22 History nitroglycerin 0.4 mg sublingual 0.4 mg sublingual Q5M PRN Chest 03/29/20 03/02/22 Rx tablet (Nitrostat) Pain #25 tabs calcium carbonate 500 mg-vitamin 2 tab PO QPM 06/14/20 03/02/22 History D3 5 mcg (200 unit) tablet (Calcium 500 + D) conjugated estrogens 0.625 mg/gram 0.625 mg vaginal 2XWK 03/07/21 03/02/22 History vaginal cream (Premarin) mirabegron 50 mg tablet,extended 50 mg PO QPM 04/06/21 03/02/22 History release 24 hr (Myrbetriq) duloxetine 30 mg capsule,delayed 30 mg PO QAM 05/16/21 03/02/22 History release (Cymbalta) esomeprazole magnesium 40 mg 40 mg PO QAM 05/16/21 03/02/22 History capsule,delayed release (Nexium) ferrous sulfate 325 mg (65 mg 325 mg PO Q OTHER DAY 05/16/21 03/02/22 History iron) tablet (iron) triamterene 37.5 1 tab PO QAM 05/16/21 03/02/22 History mg-hydrochlorothiazide 25 mg tablet valacyclovir 500 mg tablet 500 mg PO QPM 90 days #90 tabs 07/11/21 03/02/22 Rx amiodarone 200 mg tablet 200 mg PO BID #180 tabs 07/12/21 03/02/22 Rx atorvastatin 80 mg tablet 80 mg PO HS #90 tabs 08/23/21 03/02/22 Rx allopurinol 100 mg tablet 100 mg PO QAM #90 tabs 08/24/21 03/02/22 Rx levothyroxine 100 mcg tablet 100 mcg PO DAILY #90 tabs 08/25/21 03/02/22 Rx metformin 500 mg tablet 500 mg PO QPM #90 tabs 09/21/21 03/02/22 Rx neomycin-bacitracn Zn-polymyxn 3.5 1 applic topical DIRECTED 10/18/21 03/02/22 History mg-400 unit-5,000 unit top oint pkt AFFECTED AREAS rivaroxaban 15 mg tablet (Xarelto) 15 mg PO DAILY #30 tabs 10/24/21 03/02/22 Rx dulaglutide 3 mg/0.5 mL 3 mg (0.5 mL) subcut WEEKLY #2 mL 01/19/22 03/02/22 Rx subcutaneous pen injector famotidine 40 mg tablet See Rx Instructions .Route 01/24/22 03/02/22 Rx .COMPLEX #90 tabs methenamine hippurate 1 gram tablet 1 g PO BID #60 tabs 01/30/22 03/02/22 Rx metoprolol succinate 50 mg 50 mg PO BID #180 tabs 02/03/22 03/02/22 Rx tablet,extended release 24 hr ondansetron 4 mg disintegrating 4 mg PO Q8H PRN nausea and 02/28/22 03/02/22 Rx tablet vomiting 3 days #10 tabs cefadroxil 1 gram tablet 1 g PO QPM 03/02/22 03/02/22 History Allergies Allergy/AdvReac Type Severity Reaction Status Date / Time sulfamethoxazole Allergy Intermediate Hives Verified 03/01/22 08:43 [From Bactrim] trimethoprim [From Bactrim] Allergy Intermediate Hives Verified 03/01/22 08:43 tetanus toxoid, adsorbed Allergy Mild LOCALIZED Verified 03/01/22 08:43 REACTION, MADE HER FEEL SICK amoxicillin AdvReac Intermediate "GOT Verified 03/01/22 08:43 C-DIFF" minocycline AdvReac Mild HEADACHES Verified 03/01/22 08:43 tetracycline AdvReac Mild HEADACHES Verified 03/01/22 08:43 Past Med/Surg History Medical History Anemia hx Arthritis CAD (coronary artery disease) CABG X 3 (2014) Charcot's joint of foot in type 2 diabetes mellitus 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 coli infection Hyperlipidemia Hypertension Hypothyroidism IBS (irritable bowel syndrome) Incomplete emptying of bladder Myocardial Infarction 2015 On antibiotic therapy preventative for recurring wound infection to rt foot and recurring UTIs Osteoarthritis Paroxysmal atrial fibrillation dx 2015 - on xarelto - follows with Dr. Oropeza Psoriatic arthritis ON CHRONIC PREDNISONE Rectal ulcer Sensorineural hearing loss of both ears Stress incontinence in female Wheelchair dependence pt states she can stand and pivot on her own Surgical History Charcot's joint of foot RIGHT FOOT (4 SURGERIES TOTAL) History of adenoidectomy History of ankle surgery LEFT History of bilateral tubal ligation History of bladder repair surgery R/T URINARY LEAKAGE History of cardiac cath 2014= NO STENTS History of carpal tunnel surgery of left wrist (~04/20/20) History of cataract surgery RIGHT/LEFT History of colonoscopy History of coronary artery bypass graft CABG X 3 (2014) History of dilatation and curettage History of repair of rotator cuff RIGHT. 03/12/2018. DONE AT [facility]. BLOCK WITH LMA. NO ISSUES. History of surgery BLADDER STIMULATOR IMPLANTED IN BACK- PER PATIENT "NOT CURRENTLY WORKING" History of tonsillectomy History of tooth extraction History of total knee replacement LEFT Family History Mother Family hx of colon cancer Cardiac disorder Colorectal cancer Cancer Hypertension Father Cardiac disorder Lung cancer Hypertension Grandmother (Maternal) Stroke Other No family history of adverse response to anesthesia Denies family history of Ovarian cancer Breast cancer Social History Smoking Status: Never smoker Second Hand Exposure: No; Hx Alcohol Use: Yes Alcohol type: wine Hx Substance Use: No Preferred Language: Macedonian Communication Ability: Effective Visual Impairment: Limited Hearing Ability: Use of Hearing Aid Mounter Saxophones Required: No Beliefs That Will Affect Care: None marital status: Current Living Situation: Spouse current occupational status: retired Feels Safe at Home: Yes caffeine: No Assistive Devices: Walker and Wheelchair Review of Systems Unobtainable due to mental health condition Physical Exam Vital Signs Vital Signs - 24 hr 03/01/22 21:27 03/01/22 22:09 03/01/22 22:07 Temperature 38 C H Temperature Source Oral Pulse Rate 70 Pulse Rate [Finger] 70 Pulse Rate from SpO2 Sensor Pulse Rhythm Regular Pulse Rhythm [Finger] Regular Pulse Strength Normal Pulse Strength [Finger] Normal Respiratory Rate 20 20 Respiratory Effort / Characteristics Non-Labored Non-Labored Respiratory Depth Normal Normal Respiratory Pattern Regular Regular Blood Pressure 183/148 H Blood Pressure [Left Arm] 82/41 L Blood Pressure Mean 159 Blood Pressure Mean [Left Arm] 54 Blood Pressure Position Lying Blood Pressure Position [Left Arm] Lying Pulse Oximetry 93 95 Oxygen Delivery Method Nasal Cannula Nasal Cannula Room Air Oxygen Flow Rate 2 2 Sepsis Recent Fever Within 48 Hours Yes Sepsis New/Unexplained Change in Mental Status Yes Sepsis Action Taken by Nursing MD Previously Notified Pulse Oximetry Post Tiitration 94 03/01/22 21:58 03/01/22 22:00 03/01/22 22:03 Temperature Temperature Source Pulse Rate 70 70 Pulse Rate [Finger] Pulse Rate from SpO2 Sensor 70 70 Pulse Rhythm Pulse Rhythm [Finger] Pulse Strength Pulse Strength [Finger] Respiratory Rate 20 21 Respiratory Effort / Characteristics Respiratory Depth Respiratory Pattern Blood Pressure 183/148 H Blood Pressure [Left Arm] Blood Pressure Mean 159 Blood Pressure Mean [Left Arm] Blood Pressure Position Blood Pressure Position [Left Arm] Pulse Oximetry 88 L 91 Oxygen Delivery Method Oxygen Flow Rate Sepsis Recent Fever Within 48 Hours Sepsis New/Unexplained Change in Mental Status Sepsis Action Taken by Nursing Pulse Oximetry Post Tiitration 03/01/22 22:03 03/01/22 22:18 03/01/22 22:18 Temperature Temperature Source Pulse Rate 70 70 Pulse Rate [Finger] Pulse Rate from SpO2 Sensor 70 Pulse Rhythm Pulse Rhythm [Finger] Pulse Strength Pulse Strength [Finger] Respiratory Rate 21 19 Respiratory Effort / Characteristics Respiratory Depth Respiratory Pattern Blood Pressure 82/41 L Blood Pressure [Left Arm] Blood Pressure Mean 54 Blood Pressure Mean [Left Arm] Blood Pressure Position Blood Pressure Position [Left Arm] Pulse Oximetry 93 Oxygen Delivery Method Oxygen Flow Rate Sepsis Recent Fever Within 48 Hours Sepsis New/Unexplained Change in Mental Status Sepsis Action Taken by Nursing Pulse Oximetry Post Tiitration 03/01/22 22:23 03/01/22 22:23 03/01/22 22:30 Temperature Temperature Source Pulse Rate 69 69 Pulse Rate [Finger] Pulse Rate from SpO2 Sensor 69 70 Pulse Rhythm Pulse Rhythm [Finger] Pulse Strength Pulse Strength [Finger] Respiratory Rate 18 19 Respiratory Effort / Characteristics Respiratory Depth Respiratory Pattern Blood Pressure 83/38 L Blood Pressure [Left Arm] Blood Pressure Mean 53 Blood Pressure Mean [Left Arm] Blood Pressure Position Blood Pressure Position [Left Arm] Pulse Oximetry 93 95 Oxygen Delivery Method Oxygen Flow Rate Sepsis Recent Fever Within 48 Hours Sepsis New/Unexplained Change in Mental Status Sepsis Action Taken by Nursing Pulse Oximetry Post Tiitration 03/01/22 22:40 03/01/22 22:40 03/01/22 22:49 Temperature Temperature Source Pulse Rate 69 Pulse Rate [Finger] Pulse Rate from SpO2 Sensor 70 Pulse Rhythm Pulse Rhythm [Finger] Pulse Strength Pulse Strength [Finger] Respiratory Rate 14 Respiratory Effort / Characteristics Respiratory Depth Respiratory Pattern Blood Pressure 87/40 L Blood Pressure [Left Arm] Blood Pressure Mean 55 Blood Pressure Mean [Left Arm] Blood Pressure Position Blood Pressure Position [Left Arm] Pulse Oximetry 96 94 Oxygen Delivery Method Oxygen Flow Rate Sepsis Recent Fever Within 48 Hours Sepsis New/Unexplained Change in Mental Status Sepsis Action Taken by Nursing Pulse Oximetry Post Tiitration 03/01/22 22:49 03/01/22 23:06 03/01/22 23:07 Temperature Temperature Source Pulse Rate Pulse Rate [Finger] Pulse Rate from SpO2 Sensor 69 Pulse Rhythm Pulse Rhythm [Finger] Pulse Strength Pulse Strength [Finger] Respiratory Rate Respiratory Effort / Characteristics Respiratory Depth Respiratory Pattern Blood Pressure 79/52 L 93/46 L Blood Pressure [Left Arm] Blood Pressure Mean 61 61 Blood Pressure Mean [Left Arm] Blood Pressure Position Blood Pressure Position [Left Arm] Pulse Oximetry 96 Oxygen Delivery Method Oxygen Flow Rate Sepsis Recent Fever Within 48 Hours Sepsis New/Unexplained Change in Mental Status Sepsis Action Taken by Nursing Pulse Oximetry Post Tiitration 03/01/22 23:10 03/01/22 23:15 03/01/22 23:15 Temperature Temperature Source Pulse Rate 67 69 Pulse Rate [Finger] Pulse Rate from SpO2 Sensor 67 69 Pulse Rhythm Pulse Rhythm [Finger] Pulse Strength Pulse Strength [Finger] Respiratory Rate 15 17 Respiratory Effort / Characteristics Respiratory Depth Respiratory Pattern Blood Pressure 97/49 L Blood Pressure [Left Arm] Blood Pressure Mean 65 Blood Pressure Mean [Left Arm] Blood Pressure Position Blood Pressure Position [Left Arm] Pulse Oximetry 96 98 Oxygen Delivery Method Oxygen Flow Rate Sepsis Recent Fever Within 48 Hours Sepsis New/Unexplained Change in Mental Status Sepsis Action Taken by Nursing Pulse Oximetry Post Tiitration 03/01/22 23:20 03/01/22 23:30 03/01/22 23:30 Temperature Temperature Source Pulse Rate 70 68 Pulse Rate [Finger] Pulse Rate from SpO2 Sensor 70 69 Pulse Rhythm Pulse Rhythm [Finger] Pulse Strength Pulse Strength [Finger] Respiratory Rate 18 19 Respiratory Effort / Characteristics Respiratory Depth Respiratory Pattern Blood Pressure 99/47 L Blood Pressure [Left Arm] Blood Pressure Mean 64 Blood Pressure Mean [Left Arm] Blood Pressure Position Blood Pressure Position [Left Arm] Pulse Oximetry 97 96 Oxygen Delivery Method Oxygen Flow Rate Sepsis Recent Fever Within 48 Hours Sepsis New/Unexplained Change in Mental Status Sepsis Action Taken by Nursing Pulse Oximetry Post Tiitration 03/01/22 23:40 03/01/22 23:45 03/01/22 23:45 Temperature Temperature Source Pulse Rate 70 71 Pulse Rate [Finger] Pulse Rate from SpO2 Sensor 70 71 Pulse Rhythm Pulse Rhythm [Finger] Pulse Strength Pulse Strength [Finger] Respiratory Rate 16 18 Respiratory Effort / Characteristics Respiratory Depth Respiratory Pattern Blood Pressure 94/50 L Blood Pressure [Left Arm] Blood Pressure Mean 64 Blood Pressure Mean [Left Arm] Blood Pressure Position Blood Pressure Position [Left Arm] Pulse Oximetry 97 97 Oxygen Delivery Method Oxygen Flow Rate Sepsis Recent Fever Within 48 Hours Sepsis New/Unexplained Change in Mental Status Sepsis Action Taken by Nursing Pulse Oximetry Post Tiitration 03/01/22 23:50 03/02/22 00:00 03/02/22 00:00 Temperature Temperature Source Pulse Rate 69 68 Pulse Rate [Finger] Pulse Rate from SpO2 Sensor 69 68 Pulse Rhythm Pulse Rhythm [Finger] Pulse Strength Pulse Strength [Finger] Respiratory Rate 17 19 Respiratory Effort / Characteristics Respiratory Depth Respiratory Pattern Blood Pressure 92/47 L Blood Pressure [Left Arm] Blood Pressure Mean 62 Blood Pressure Mean [Left Arm] Blood Pressure Position Blood Pressure Position [Left Arm] Pulse Oximetry 97 97 Oxygen Delivery Method Oxygen Flow Rate Sepsis Recent Fever Within 48 Hours Sepsis New/Unexplained Change in Mental Status Sepsis Action Taken by Nursing Pulse Oximetry Post Tiitration 03/02/22 00:10 03/02/22 00:15 03/02/22 00:15 Temperature Temperature Source Pulse Rate 68 68 Pulse Rate [Finger] Pulse Rate from SpO2 Sensor 69 68 Pulse Rhythm Pulse Rhythm [Finger] Pulse Strength Pulse Strength [Finger] Respiratory Rate 19 17 Respiratory Effort / Characteristics Respiratory Depth Respiratory Pattern Blood Pressure 89/46 L Blood Pressure [Left Arm] Blood Pressure Mean 60 Blood Pressure Mean [Left Arm] Blood Pressure Position Blood Pressure Position [Left Arm] Pulse Oximetry 97 97 Oxygen Delivery Method Oxygen Flow Rate Sepsis Recent Fever Within 48 Hours Sepsis New/Unexplained Change in Mental Status Sepsis Action Taken by Nursing Pulse Oximetry Post Tiitration 03/02/22 00:20 03/02/22 00:30 03/02/22 00:32 Temperature Temperature Source Pulse Rate 69 68 68 Pulse Rate [Finger] Pulse Rate from SpO2 Sensor 69 68 68 Pulse Rhythm Pulse Rhythm [Finger] Pulse Strength Pulse Strength [Finger] Respiratory Rate 19 16 15 Respiratory Effort / Characteristics Respiratory Depth Respiratory Pattern Blood Pressure Blood Pressure [Left Arm] Blood Pressure Mean Blood Pressure Mean [Left Arm] Blood Pressure Position Blood Pressure Position [Left Arm] Pulse Oximetry 96 97 97 Oxygen Delivery Method Oxygen Flow Rate Sepsis Recent Fever Within 48 Hours Sepsis New/Unexplained Change in Mental Status Sepsis Action Taken by Nursing Pulse Oximetry Post Tiitration 03/02/22 00:32 03/02/22 00:40 03/02/22 01:04 Temperature 36.9 C Temperature Source Oral Pulse Rate 67 Pulse Rate [Finger] Pulse Rate from SpO2 Sensor 67 Pulse Rhythm Pulse Rhythm [Finger] Pulse Strength Pulse Strength [Finger] Respiratory Rate 16 Respiratory Effort / Characteristics Respiratory Depth Respiratory Pattern Blood Pressure 89/41 L Blood Pressure [Left Arm] Blood Pressure Mean 57 Blood Pressure Mean [Left Arm] Blood Pressure Position Blood Pressure Position [Left Arm] Pulse Oximetry 96 Oxygen Delivery Method Oxygen Flow Rate Sepsis Recent Fever Within 48 Hours Sepsis New/Unexplained Change in Mental Status Sepsis Action Taken by Nursing Pulse Oximetry Post Tiitration 03/02/22 00:45 03/02/22 00:45 03/02/22 01:01 Temperature Temperature Source Pulse Rate 67 Pulse Rate [Finger] Pulse Rate from SpO2 Sensor 68 Pulse Rhythm Pulse Rhythm [Finger] Pulse Strength Pulse Strength [Finger] Respiratory Rate 16 Respiratory Effort / Characteristics Respiratory Depth Respiratory Pattern Blood Pressure 87/41 L 86/43 L Blood Pressure [Left Arm] Blood Pressure Mean 56 57 Blood Pressure Mean [Left Arm] Blood Pressure Position Blood Pressure Position [Left Arm] Pulse Oximetry 96 Oxygen Delivery Method Oxygen Flow Rate Sepsis Recent Fever Within 48 Hours Sepsis New/Unexplained Change in Mental Status Sepsis Action Taken by Nursing Pulse Oximetry Post Tiitration 03/02/22 01:02 03/02/22 01:14 03/02/22 01:14 Temperature Temperature Source Pulse Rate 66 Pulse Rate [Finger] Pulse Rate from SpO2 Sensor 66 66 Pulse Rhythm Pulse Rhythm [Finger] Pulse Strength Pulse Strength [Finger] Respiratory Rate 14 Respiratory Effort / Characteristics Respiratory Depth Respiratory Pattern Blood Pressure 80/44 L Blood Pressure [Left Arm] Blood Pressure Mean 56 Blood Pressure Mean [Left Arm] Blood Pressure Position Blood Pressure Position [Left Arm] Pulse Oximetry 92 98 Oxygen Delivery Method Oxygen Flow Rate Sepsis Recent Fever Within 48 Hours Sepsis New/Unexplained Change in Mental Status Sepsis Action Taken by Nursing Pulse Oximetry Post Tiitration 03/02/22 01:15 Temperature Temperature Source Pulse Rate 66 Pulse Rate [Finger] Pulse Rate from SpO2 Sensor 67 Pulse Rhythm Pulse Rhythm [Finger] Pulse Strength Pulse Strength [Finger] Respiratory Rate 17 Respiratory Effort / Characteristics Respiratory Depth Respiratory Pattern Blood Pressure Blood Pressure [Left Arm] Blood Pressure Mean Blood Pressure Mean [Left Arm] Blood Pressure Position Blood Pressure Position [Left Arm] Pulse Oximetry 98 Oxygen Delivery Method Oxygen Flow Rate Sepsis Recent Fever Within 48 Hours Sepsis New/Unexplained Change in Mental Status Sepsis Action Taken by Nursing Pulse Oximetry Post Tiitration Physical Exam GENERAL: Ill-appearing. HENT: Exam performed. -Head: Normocephalic and atraumatic. EYES: Conjunctivae and EOM are normal. Pupils are equal, round, and reactive to light. Right eye exhibits no discharge. Left eye exhibits no discharge. No scleral icterus. NECK: Normal range of motion. Neck supple. No JVD present. CV: Normal rate, regular rhythm, normal heart sounds and intact distal pulses. There is no peripheral edema. Palpable radial pulses bue. PULM/CHEST: Rhonchi bilaterally. ABD: The abdomen is soft. MUSC/SKEL: Pelvis stable. NEURO: GCS eye subscore is 3. GCS verbal subscore is 3. GCS motor subscore is 5. SKIN: Skin lesions of the right foot. Course Course 2154: The patient was evaluated in room B8. A complete history and physical exam was performed Cardiac monitoring: An order was placed for continuous cardiac monitoring. The monitor shows a rate of 70 with sinus rhythm Patient febrile and hypotensive. Sepsis orders were initiated. IV fluids and IV antibiotics ordered for the patient. It is thought that the patient's source of infection are the lesions on her feet for which she was being treated with Dalvance today. Given the patient's history of fall today we will obtain CT scans to make sure there are no traumatic injuries. Patient hypoxic on room air placed on 2 L nasal cannula which improved her oxygen saturation. 0010: Patient's blood pressure mildly improved with IV fluids. IV fluids continued to be given to the patient. Patient treated with Vanco and cefepime. Labs show leukocytosis 16. VBG within normal limits. Potassium 4.5. Creatinine 2.19, less than 10 days ago her creatinine was 1.02. Patient's ini tial lactic acid 4.8. Magnesium 1.6. Procalcitonin 112.87. Urinalysis does not show any signs of infection. Imaging does not show any traumatic injuries. Discussed case with Dr. Méndez F F Thompson Hospitalist will admit the patient to his service. Administered Medications Sodium Chloride (Nss) 500 mls @ 125 mls/hr IV .Q4H [facility] Stop: 03/31/22 23:29 Last Admin: 03/02/22 00:31 Dose: 125 mls/hr Documented By: ABIDA Norepinephrine Bitartrate (Levophed/D5w) 4 mg in 250 mls @ 16.5 mls/hr IV .[id number] DENEEN; Protocol Stop: 04/01/22 01:14 Last Admin: 03/02/22 01:15 Dose: 0.05 mcg/kg/min, 16.5 mls/hr Documented By: ABIDA Co-signed By: AW Discontinued Medications Sodium Chloride (Nss 1000ml) 1,000 mls @ 999 mls/hr IV .Q1H1M DENEEN Stop: 03/01/22 23:00 Last Infusion: 03/01/22 23:28 Dose: 0 mls/hr Documented By: Admin: 03/01/22 22:25 Dose: 999 mls/hr Documented By: DOMENICO Cefepime HCl (Maxipime) 2,000 mg in 20 mls @ 5 mls/min IV NOW STA; Protocol Stop: 03/01/22 21:55 Last Admin: 03/01/22 22:25 Dose: 5 mls/min Documented By: DOMENICO Vancomycin HCl 2,250 mg/ (Sodium Chloride) 545 mls @ 200 mls/hr IV NOW ONE Stop: 03/02/22 01:21 Last Admin: 03/01/22 23:42 Dose: 200 mls/hr Documented By: ABIDA Sodium Chloride (Nss 1000ml) 1,000 mls @ 999 mls/hr IV .Q1H1M ONE Stop: 03/01/22 23:38 Last Infusion: 03/01/22 23:29 Dose: 0 mls/hr Documented By: Admin: 03/01/22 22:47 Dose: 999 mls/hr Documented By: DOMENICO Sodium Chloride (Nss 1000ml) 500 mls @ 999 mls/hr IV .Q31M ONE Stop: 03/01/22 23:48 Last Infusion: 03/02/22 00:31 Dose: 0 mls/hr Documented By: Admin: 03/01/22 23:42 Dose: 999 mls/hr Documented By: ABIDA Magnesium Sulfate/Dextrose (Magnesium Sulfate 1gm / D5w Bag) Confirm Administered Dose 1 gm IV .STK-MED ONE Stop: 03/02/22 01:09 Last Admin: 03/02/22 01:17 Dose: Not Given Documented By: ABIDA Critical Care Time Critical Care Time: Yes Total Critical Care Time: 77 I have personally spent greater than 77 minutes of critical care time in the direct management of this patient. This includes bedside care, interpretation of diagnostic studies, and testing, discussion with consultants, patient, and family members, and other required patient management activities. This 77 minutes is in excess of all separately billable procedures. Medical Decision Making Laboratory Data Result diagrams: 03/01/22 22:02 03/01/22 23:27 Lab Results 03/01/22 03/01/22 03/01/22 Range/Units 22:02 22:02 22:02 WBC 16.01 H (4.8-10.8) K/ul RBC 3.51 L (3.93-5.22) M/uL Hgb 11.5 L (12.0-16.0) g/dl Hct 34.0 L (34.1-44.9) % MCV 96.9 (80.0-100.0) fL MCH 32.8 (25.0-34.0) pg MCHC 33.8 (32.0-36.0) g/dL RDW Std Deviation 52.5 H (36.4-46.3) fL RDW Coeff of Kristen 14.9 H (11.5-14.5) % Plt Count 281 (130-400) K/uL MPV 11.9 (9.4-12.3) fL Immature Gran % (Auto) 2.3 % Neut % (Auto) 89.6 % Lymph % (Auto) 1.7 % [place] % (Auto) 6.0 % Eos % (Auto) 0.2 % Baso % (Auto) 0.2 % Neut # (Auto) 14.33 H (1.4-6.5) K/uL Lymph # (Auto) 0.28 L (1.2-3.4) K/uL [place] # (Auto) 0.96 H (0.24-0.82) K/uL Eos # (Auto) 0.03 (0-0.50) K/uL Baso # (Auto) 0.04 (0-0.2) K/uL Immature Gran # (Auto) 0.37 H (0.00-0.02) K/uL Absolute Nucleated RBC 0.05 H (0-0) K/uL Nucleated RBC % (auto) 0.3 % PT (9.0-12.0) Seconds INR (0.9-1.1) APTT (21.0-31.0) Seconds PTT Ratio VBG pH (7.36-7.41) VBG pCO2 (38-50) mmHg VBG pO2 mmHg VBG HCO3 mmol/L VBG O2 Saturation % VBG Base Excess mEq/L Sodium 131 L (136-145) mmol/L Potassium TNP Chloride 96 L (98-107) mmol/L Carbon Dioxide 23 (21-32) mmol/L Anion Gap 12 H (3-11) BUN 28 H (6-23) mg/dl Creatinine 2.19 H (0.6-1.2) mg/dl Est Cr Clr Drug Dosing 22.6 ml/min Est GFR ( Amer) 24.4 ml/min Est GFR (Non-Af Amer) 21.0 ml/min BUN/Creatinine Ratio 12.8 (10-20) Glucose 158 H (70-99(Fasting)) mg/dl Lactate 4.8 H* (0.4-2.0) mmol/L Calcium 8.0 L (8.5-10.1) mg/dl Magnesium 1.6 L (1.7-2.4) mg/dl Total Bilirubin 1.8 H (0.2-1.0) mg/dl Direct Bilirubin TNP AST TNP ALT 200 H (7-52) U/L Alkaline Phosphatase 95 (34-104) U/L Troponin I High Sens 11.6 (0-14) pg/ml Total Protein 6.2 (6.0-8.3) gm/dl Albumin 3.3 L (3.4-5.0) gm/dl Procalcitonin (0-0.5) ng/ml Urine Color Urine Appearance (Clear) Urine pH (4.5-7.5) Ur Specific [place] (1.000-1.030) Urine Protein (Negative) Urine Glucose (UA) (Negative) Urine Ketones (Negative) Urine Blood (Negative) Urine Nitrite (Negative) Urine Bilirubin (Negative) Urine Urobilinogen (Negative) Ur Leukocyte Esterase (Negative) Urine WBC (Auto) (0-5) /hpf Urine RBC (Auto) (0-4) /hpf U Hyaline Cast (Auto) (0-5) /lpf U Epithel Cells (Auto) (0-5) /lpf Urine Bacteria (Auto) (Negative) Ur Renal Epithelial Cell (0-5) /lpf Urine Yeast (None Prsent) SARS-CoV-2, RNA, NAAT (NEGATIVE) 12/07/22 12/07/22 12/07/22 Range/Units 22:02 22:02 22:12 WBC (4.8-10.8) K/ul RBC (3.93-5.22) M/uL Hgb (12.0-16.0) g/dl Hct (34.1-44.9) % MCV (80.0-100.0) fL MCH (25.0-34.0) pg MCHC (32.0-36.0) g/dL RDW Std Deviation (36.4-46.3) fL RDW Coeff of Kristen (11.5-14.5) % Plt Count (130-400) K/uL MPV (9.4-12.3) fL Immature Gran % (Auto) % Neut % (Auto) % Lymph % (Auto) % [place] % (Auto) % Eos % (Auto) % Baso % (Auto) % Neut # (Auto) (1.4-6.5) K/uL Lymph # (Auto) (1.2-3.4) K/uL [place] # (Auto) (0.24-0.82) K/uL Eos # (Auto) (0-0.50) K/uL Baso # (Auto) (0-0.2) K/uL Immature Gran # (Auto) (0.00-0.02) K/uL Absolute Nucleated RBC (0-0) K/uL Nucleated RBC % (auto) % PT 13.3 H (9.0-12.0) Seconds INR 1.3 H (0.9-1.1) APTT 28.6 (21.0-31.0) Seconds PTT Ratio 1.0 VBG pH (7.36-7.41) VBG pCO2 (38-50) mmHg VBG pO2 mmHg VBG HCO3 mmol/L VBG O2 Saturation % VBG Base Excess mEq/L Sodium (136-145) mmol/L Potassium Chloride (98-107) mmol/L Carbon Dioxide (21-32) mmol/L Anion Gap (3-11) BUN (6-23) mg/dl Creatinine (0.6-1.2) mg/dl Est Cr Clr Drug Dosing ml/min Est GFR ( Amer) ml/min Est GFR (Non-Af Amer) ml/min BUN/Creatinine Ratio (10-20) Glucose (70-99(Fasting)) mg/dl Lactate (0.4-2.0) mmol/L Calcium (8.5-10.1) mg/dl Magnesium (1.7-2.4) mg/dl Total Bilirubin (0.2-1.0) mg/dl Direct Bilirubin AST ALT (7-52) U/L Alkaline Phosphatase (34-104) U/L Troponin I High Sens (0-14) pg/ml Total Protein (6.0-8.3) gm/dl Albumin (3.4-5.0) gm/dl Procalcitonin 112.87 H (0-0.5) ng/ml Urine Color Yellow Urine Appearance Turbid A (Clear) Urine pH 5.5 (4.5-7.5) Ur Specific [place] 1.012 (1.000-1.030) Urine Protein 1+ H (Negative) Urine Glucose (UA) Negative (Negative) Urine Ketones Negative (Negative) Urine Blood Negative (Negative) Urine Nitrite Negative (Negative) Urine Bilirubin Negative (Negative) Urine Urobilinogen Negative (Negative) Ur Leukocyte Esterase 2+ H (Negative) Urine WBC (Auto) >30 H (0-5) /hpf Urine RBC (Auto) 10-30 H (0-4) /hpf U Hyaline Cast (Auto) 1-5 (0-5) /lpf U Epithel Cells (Auto) >30 H (0-5) /lpf Urine Bacteria (Auto) Negative (Negative) Ur Renal Epithelial Cell 0-5 (0-5) /lpf Urine Yeast Budding A (None Prsent) SARS-CoV-2, RNA, NAAT (NEGATIVE) 03/01/22 03/01/22 03/01/22 Range/Units 22:13 22:46 23:27 WBC (4.8-10.8) K/ul RBC (3.93-5.22) M/uL Hgb (12.0-16.0) g/dl Hct (34.1-44.9) % MCV (80.0-100.0) fL MCH (25.0-34.0) pg MCHC (32.0-36.0) g/dL RDW Std Deviation (36.4-46.3) fL RDW Coeff of Kristen (11.5-14.5) % Plt Count (130-400) K/uL MPV (9.4-12.3) fL Immature Gran % (Auto) % Neut % (Auto) % Lymph % (Auto) % [place] % (Auto) % Eos % (Auto) % Baso % (Auto) % Neut # (Auto) (1.4-6.5) K/uL Lymph # (Auto) (1.2-3.4) K/uL [place] # (Auto) (0.24-0.82) K/uL Eos # (Auto) (0-0.50) K/uL Baso # (Auto) (0-0.2) K/uL Immature Gran # (Auto) (0.00-0.02) K/uL Absolute Nucleated RBC (0-0) K/uL Nucleated RBC % (auto) % PT (9.0-12.0) Seconds INR (0.9-1.1) APTT (21.0-31.0) Seconds PTT Ratio VBG pH 7.38 (7.36-7.41) VBG pCO2 41 (38-50) mmHg VBG pO2 37 mmHg VBG HCO3 24 mmol/L VBG O2 Saturation 67.7 % VBG Base Excess -0.8 mEq/L Sodium (136-145) mmol/L Potassium 4.5 Chloride (98-107) mmol/L Carbon Dioxide (21-32) mmol/L Anion Gap (3-11) BUN (6-23) mg/dl Creatinine (0.6-1.2) mg/dl Est Cr Clr Drug Dosing ml/min Est GFR ( Amer) ml/min Est GFR (Non-Af Amer) ml/min BUN/Creatinine Ratio (10-20) Glucose (70-99(Fasting)) mg/dl Lactate (0.4-2.0) mmol/L Calcium (8.5-10.1) mg/dl Magnesium (1.7-2.4) mg/dl Total Bilirubin (0.2-1.0) mg/dl Direct Bilirubin 0.4 H AST 262 H ALT (7-52) U/L Alkaline Phosphatase (34-104) U/L Troponin I High Sens (0-14) pg/ml Total Protein (6.0-8.3) gm/dl Albumin (3.4-5.0) gm/dl Procalcitonin (0-0.5) ng/ml Urine Color Urine Appearance (Clear) Urine pH (4.5-7.5) Ur Specific [place] (1.000-1.030) Urine Protein (Negative) Urine Glucose (UA) (Negative) Urine Ketones (Negative) Urine Blood (Negative) Urine Nitrite (Negative) Urine Bilirubin (Negative) Urine Urobilinogen (Negative) Ur Leukocyte Esterase (Negative) Urine WBC (Auto) (0-5) /hpf Urine RBC (Auto) (0-4) /hpf U Hyaline Cast (Auto) (0-5) /lpf U Epithel Cells (Auto) (0-5) /lpf Urine Bacteria (Auto) (Negative) Ur Renal Epithelial Cell (0-5) /lpf Urine Yeast (None Prsent) SARS-CoV-2, RNA, NAAT NEGATIVE (NEGATIVE) Imaging Data My Impression: Right foot x-ray: No evidence of osteomyelitis or free air. Chest x-ray: No significant change from the chest x-ray done in July 2018. Radiologist's Impression: PreliminaryFindingsOnly See Final Report For Complete Findings CT LEFT FOOT: Comparison is made to the prior examination dated 04/05/20. Correlation can also be made to radiographs of the left foot dated 02/21/22. There is a sideplate and screw. There is mild soft tissue swelling about the dorsumof the foot. There is severe soft tissue swelling adjacent to the first metatarsophalangeal joint and extending distally. There is no evidence for osseous erosion to suggest underlying osteomyelitis. Radiologist: Brandon Rob MD Study ready at 01:09 and initial results transmitted at 01:19 PreliminaryFindingsOnly See Final Report For Complete Findings CT ABDOMEN & PELVIS Without Contrast: Mild dependent airspace consolidations, correlate for mild infiltrate/aspiration. No focal hepatic lesions. Normal gallbladder, spleen, adrenal glands, and pancreas. No obstructing calculi. Vascular calcifications are present. Bilateral perinephric stranding. Normal urinarybladder. Calcified uterine fibroid measures 1.8 cm. Diverticulosis, without acute diverticulitis. No small bowel obstruction. Normal appendix. Small fat-containing umbilical hernia. Degenerative changes of the spine. No acute fractures. No soft tissue hematoma. IMPRESSION: No traumatic findings. No acute fractures. Radiologist: Sher Mathis MD Study ready at 23:34 and initial results transmitted at 23:43 PreliminaryFindingsOnly See Final Report For Complete Findings CT HEAD: No acute intracranial hemorrhage. No midline shift or mass effect. The territorial palmer-white matter differentiation is maintained throughout. Age-related cerebral volume loss. Periventricular and subcortical white matter hypoattenuation, consistent with chronic microangiopathy. Radiologist: Sher Mathis MD Phone: Study ready at 23:36 and initial results transmitted at 23:39 PreliminaryFindingsOnly See Final Report For Complete Findings CT C SPINE: FINDINGS: The vertebral bodyheights are maintained. Grade 1 anterolisthesis of C6 on C7. The craniocervical junction is intact. The atlanto-dens interval is maintained. The dens is intact. Multilevel cervical spondylosis and degenerative disc disease. Straightening of the cervical lordosis. Osteoporosis. IMPRESSION: No cervical spine fracture. Multilevel degenerative changes. Radiologist: Sher Mathis MD Study ready at 23:39 and initial results transmitted at 23:41 ECG Data Additional Comments: Atrial fibrillation with rate of 71. QRS [address] elevation or ST depression. [facility] Narrative 2155: The patient was evaluated in room B8. A complete history and physical exam was performed Cardiac monitoring: An order was placed for continuous cardiac monitoring. The monitor shows a rate of 70 with sinus rhythm Patient febrile and hypotensive. Sepsis orders were initiated. IV fluids and IV antibiotics ordered for the patient. It is thought that the patient's source of infection are the lesions on her feet for which she was being treated with Dalvance today. Given the patient's history of fall today we will obtain CT scans to make sure there are no traumatic injuries. Patient hypoxic on room air placed on 2 L nasal cannula which improved her oxygen saturation. 0010: Patient's blood pressure mildly improved with IV fluids. IV fluids continued to be given to the patient. Patient treated with Vanco and cefepime. Labs show leukocytosis 16. VBG within normal limits. Potassium 4.5. Creatinine 2.19, less than 10 days ago her creatinine was 1.02. Patient's initial lactic acid 4.8. Magnesium 1.6. Procalcitonin 112.87. Urinalysis does not show any signs of infection. Imaging does not show any traumatic injuries. Discussed case with Dr. Méndez [facility] hospitalist will admit the patient to his service. Impression & Plan Sepsis, Wound of right foot Discharge Plan Visit Data Chief Complaint: Altered Mental Status Stated Complaint: AMS, Fever, Infection ED Provider: Zi Bowser Discharge Problem: Sepsis, Wound of right foot Patient Disposition: Admitted As Inpatient Forms Stand Alone Forms: My [facility] Prescriptions Prescriptions: No Action nitroglycerin [Nitrostat] 0.4 mg tablet, sublingual 0.4 mg Sublingual Q5M PRN (Reason: Chest Pain) Qty: 25 6RF Rx Instructions: Call 911 for chest pain that exceeds 3 doses valacyclovir 500 mg tablet 500 mg PO QPM 90 Days Qty: 90 4RF Rx Instructions: Take 1 tablet by mouth daily. amiodarone 200 mg tablet 200 mg PO BID Qty: 180 3RF Rx Instructions: Has not been filled since 06/30/21 for 90 nday supply atorvastatin 80 mg tablet 80 mg PO HS Qty: 90 3RF Rx Instructions: TAKE 1 TABLET BY MOUTH AT BEDTIME allopurinol 100 mg tablet 100 mg PO QAM Qty: 90 3RF levothyroxine 100 mcg tablet 100 mcg PO DAILY Qty: 90 3RF metformin 500 mg tablet 500 mg PO QPM Qty: 90 3RF dulaglutide 3 mg/0.5 mL pen injector 3 mg SQ WEEKLY Qty: 2 5RF Rx Instructions: SUNDAYS famotidine 40 mg tablet See Rx Instructions .ROUTE .COMPLEX Qty: 90 3RF Dose Instruction: TAKE 1 TABLET BY MOUTH EVERY DAY Rx Instructions: TAKE 1 TABLET BY MOUTH EVERY DAY methenamine hippurate 1 gram tablet 1 g PO BID Qty: 60 5RF metoprolol succinate 50 mg tablet extended release 24 hr 50 mg PO BID Qty: 180 3RF ondansetron 4 mg tablet,disintegrating 4 mg PO Q8H PRN (Reason: nausea and vomiting) 3 Days Qty: 10 0RF Premarin 0.625 mg/gram cream 0.625 mg vaginal 2XWK Rx Instructions: ON HOLD D/T CATHING SELF. off 5 days; repeat cycle Myrbetriq 50 mg tablet extended release 24 hr 50 mg PO QPM risedronate 150 mg tablet 150 mg PO WK Label Comments: takes on spenser qam Rx Instructions: ON HOLD multivitamin Tablet 1 tab PO QPM gabapentin 400 mg Capsule 400 mg PO TID potassium 99 mg Tablet 1 tab PO HS magnesium 250 mg Tablet 250 mg PO HS cyanocobalamin-cobamamide [B-12 Plus] 5,000-100 mcg Tablet, Sublingual 1,000 mcg sublingual QAM triamcinolone acetonide [Nasacort] 55 mcg Aerosol,Meddybemps 1 spray INTRANASAL HS calcium carbonate-vitamin D3 [Calcium 500 + D] 500 mg(1,250mg) -200 unit tablet 2 tab PO QPM [id number] 3.5-400-5,000 [id number] Ointment In Packet 1 applic TOPICAL DIRECTED Xarelto 15 mg tablet 15 mg PO DAILY Qty: 30 5RF Rx Instructions: must administer with evening meal cefadroxil 1 gram tablet 1 g PO QPM Rx Instructions: per dr 1st ferrous sulfate [iron] 325 mg (65 mg iron) tablet 325 mg PO Q OTHER DAY Label Comments: takes in the am esomeprazole magnesium [Nexium] 40 mg capsule,delayed release(DR/EC) 40 mg PO QAM triamterene-hydrochlorothiazid 37.5-25 mg tablet 1 tab PO QAM duloxetine [Cymbalta] 30 mg capsule,delayed release(DR/EC) 30 mg PO QAM Referrals Referrals: Reno Perez MD [Primary Care Provider] -
[2022-03-02] MEDS: MAGNESIUM SULFATE / D5W 1 GM/100 ML BAG IV SCH ×2 (02:22→04:18)
[2022-03-02] MEDS ORDERED: GLUCOSE 10 TAB/TUBE PO PRN (03:32)
[2022-03-02] MEDS ORDERED: ALBUT/IPRATROP 3MG/0.5MG NEB 3 ML VIAL INH PRN (03:32)
[2022-03-02] MEDS ORDERED: GLUCOSE 40% GEL 15 GM TUBE PO PRN (03:32)
[2022-03-02] MEDS ORDERED: DEXTROSE 50% 50 ML SYRINGE IV PRN (03:32)
[2022-03-02] MEDS ORDERED: GLUCAGON FOR INJ 1 MG VIAL SQ PRN (03:32)
[2022-03-02] MEDS ORDERED: CARBOHYDRATES FOR HYPOGLYCEMIA PO PRN (03:32)
[2022-03-02 04:45] LABS: Basophils # (auto) 0.03 K/uL (0-0.2); Basophils % (auto) 0.2 %; Eosinophils # (auto) 0.07 K/uL (0-0.50); Eosinophils % (auto) 0.4 %; Hematocrit (blood only) 34.1 % (34.1-44.9); Hemoglobin 11.5 g/dl (12.0-16.0); Immature Granulocytes # (auto) 0.15 K/uL (0.00-0.02); Immature Granulocytes % (auto) 0.9 %; Lymphocytes # (auto) 0.87 K/uL (1.2-3.4); Lymphocytes % (auto) 5.3 %; Mean Corpuscular Hemoglobin 32.3 pg (25.0-34.0); Mean Corpuscular Hgb Conc 33.7 g/dL (32.0-36.0); Mean Corpuscular Volume 95.8 fL (80.0-100.0); Mean Platelet Volume 11.9 fL (9.4-12.3); Monocytes # (auto) 1.11 K/uL (0.24-0.82); Monocytes % (auto) 6.7 %; Neutrophils # (auto) 14.24 K/uL (1.4-6.5); Neutrophils % (auto) 86.5 %; Nucleated RBC # (auto) 0.02 K/uL (0-0); Nucleated RBC % (auto) 0.1 %; Platelet Count 213 K/uL (130-400); RDW Coefficient of Variation 14.7 % (11.5-14.5); RDW Standard Deviation 51.4 fL (36.4-46.3); Red Blood Count 3.56 M/uL (3.93-5.22); White Blood Count 16.47 K/ul (4.8-10.8)
[2022-03-02 04:55] LABS: INR 1.2 (0.9-1.1); Partial Thromboplastin Ratio 1.1; Partial Thromboplastin Time 30.7 Seconds (21.0-31.0); Prothrombin Time 13.1 Seconds (9.0-12.0)
--- NOTE | 2022-03-02 05:01 | Critical Care Consultation ---
Date of Consultation March 02, 2022 Assessment & Plan (1) Septic shock: Reason Critically Ill: 76-year-old female presents to the ICU in septic shock, most likely due to infective diabetic wound, requiring vasopressor support with Levophed drip. Neuro - Encephalopathysuspect this is most likely induced by sepsis -CT head and C-spine negative -BUN 28, ammonia pending -Monitor for now, expect to improve with treatment Neuropathyhold gabapentin Cardiac - Septic shockmost likely septic in the setting of Pro-Ney and lactate and WBC diabetic wounds, see ID below -Random cortisol pending, echo pending, troponin pending. -Currently maintaining MAP greater than 65 with Levophed drip. Wean as qamar erated. Consider central line with increased dose -Hold antihypertensives -Normosol at 125 -Continuous monitor on telemetry. Admitted to ICU Paroxysmal A. fibcontinue p.o. amiodarone. Hold metoprolol. Continue Xarelto CADhistory of CABG x3. No ASA on home meds? -Follow-up echo. Troponin pending HLDcontinue statin when appropriate Respiratory - No pulmonary history. Currently maintaining oxygen saturations on room air without respiratory distress. Continuous monitoring on pulse ox. GI - N.p.o. GERDfamotidine RENAL/LYTES - AKIcreatinine 2.19. Suspect this is most likely ATN in the setting of hypotension due to sepsis -+1 protein on urinalysis -Continue with IV fluid resuscitation -Maintain maps greater than 65 -Avoid nephrotoxins and renally adjust medications -Routine BMPs and replete electrolytes as indicated - Neurogenic bladderFoley for now. Strict I's and O's ENDO - DM type IIhold oral medications in favor of sliding scale -A1c 6.7 -ICU hyperglycemic protocol Hypothyroidcontinue Synthroid Goutcontinue allopurinol when appropriate HEME - Hemoglobin stable at 11.5. Monitor routine CBC ID - Sepsissuspect source is most likely the patient's infected diabetic ulcer however cannot rule out UTI as patient does have history of recurrent UTIs and also questionable aspiration pneumonia seen on CT abdomen pelvis -Significantly elevated procalcitonin of 112, lactate 4, WBC 16 -Blood cultures and urine culture pending -Nasal MRSA pending, peripheral IVs. Patient currently on COVID-19 negative -Patient did receive 1 dose of Dalvance in clinic. We will start daptomycin at both 700. Continue cefepime -Consider podiatry consult LINES/IV ACCESS - Low-dose of Levophed and weaning. We will hold on central line at this time but if patient were to require high-dose Levophed or multiple vasopressors will likely need central line DVT PROPHYLAXIS - Delbert Downey I have personally spent 60 minutes of critical care time in the direct management of this patient. This is a life/limb threatening event. This includes time spent evaluating patient, direct bedside care, chart review, placing orders, interpretation of diagnostic studies, discussion with consultants, patient, and family members, as well as other required patient management activities. This time is exclusive of all separately billable procedures, and teaching time and separate from and in addition to any other critical care service time. Thank you for allowing us to participate in the care of this patient. Please refer to my attending physician's documentation for any further recommendations. (2) Diabetic ulcer of left foot associated with type 2 diabetes mellitus, with necrosis of bone: (3) Gout: (4) CAD (coronary artery disease): (5) Dyslipidemia: (6) Hypothyroidism: (7) Depression: (8) Vitamin B12 deficiency: (9) GERD without esophagitis: (10) Neurogenic bladder: (11) Recurrent UTI (urinary tract infection): (12) Hypertension: (13) Paroxysmal atrial fibrillation: History of Present Illness Attending Physician: Austen Prescott MD History of Present Illness Patient is a 76-year-old female with past medical history DM type II, CAD, gout, HLD, hypothyroid, depression, GERD, neurogenic bladder, recurrent UTIs, HTN, PAF (on Xarelto), and recent diagnosis of osteomyelitis from diabetic foot ulcer of the left lower extremity. She presents to the emergency department earlier tonight with altered mental status and fever. She was found to be hypotensive on arrival. Patient was seen earlier today in the wound clinic and was treated with Dalvance. She received IV fluid resuscitation but remains hypotensive and was started on Levophed. She was noted to be confused. Her did report fall off the toilet earlier today. She underwent CT head, C-spine, abdomen and pelvis which were unremarkable. She underwent foot CT showed mild soft tissue swelling about the dorsum of the foot and severe soft tissue swelling absent to the first metatarsophalangeal: Joint and extending distantly. No evidence of osseous erosion to suggest underlying osteomyelitis. Patient's procalcitonin and lactate were significantly elevated. She underwent venous Doppler study of the lower extremities which did not show evidence of thrombosis. She is now being admitted to ICU for further management at this time. Allergies Allergy/AdvReac Type Severity Reaction Status Date / Time sulfamethoxazole Allergy Intermediate Hives Verified 03/01/22 08:43 [From Bactrim] trimethoprim [From Bactrim] Allergy Intermediate Hives Verified 03/01/22 08:43 tetanus toxoid, adsorbed Allergy Mild LOCALIZED Verified 03/01/22 08:43 REACTION, MADE HER FEEL SICK amoxicillin AdvReac Intermediate "GOT Verified 03/01/22 08:43 C-DIFF" minocycline AdvReac Mild HEADACHES Verified 03/01/22 08:43 tetracycline AdvReac Mild HEADACHES Verified 03/01/22 08:43 Home Medications Medication Instructions Recorded Confirmed Type gabapentin 400 mg capsule 400 mg PO TID 02/19/18 03/02/22 History magnesium 250 mg tablet 250 mg PO HS 02/19/18 03/02/22 History multivitamin 1 tab PO QPM 02/19/18 03/02/22 History potassium 99 mg tablet 1 tab PO HS 02/19/18 03/02/22 History cyanocobalamin (B12)-cobamamide 1,000 mcg sublingual QAM 03/12/18 03/02/22 History 5,000 mcg-100 mcg sublingual tablet (B-12 Plus) triamcinolone acetonide 55 mcg 1 spray intranasal HS 03/12/18 03/02/22 History nasal spray aerosol (Nasacort) risedronate 150 mg tablet 150 mg PO WK 02/23/20 03/02/22 History nitroglycerin 0.4 mg sublingual 0.4 mg sublingual Q5M PRN Chest 03/29/20 03/02/22 Rx tablet (Nitrostat) Pain #25 tabs calcium carbonate 500 mg-vitamin 2 tab PO QPM 06/14/20 03/02/22 History D3 5 mcg (200 unit) tablet (Calcium 500 + D) conjugated estrogens 0.625 mg/gram 0.625 mg vaginal 2XWK 03/07/21 03/02/22 Histo ry vaginal cream (Premarin) mirabegron 50 mg tablet,extended 50 mg PO QPM 04/06/21 03/02/22 History release 24 hr (Myrbetriq) duloxetine 30 mg capsule,delayed 30 mg PO QAM 05/16/21 03/02/22 History release (Cymbalta) esomeprazole magnesium 40 mg 40 mg PO QAM 05/16/21 03/02/22 History capsule,delayed release (Nexium) ferrous sulfate 325 mg (65 mg 325 mg PO Q OTHER DAY 05/16/21 03/02/22 History iron) tablet (iron) triamterene 37.5 1 tab PO QAM 05/16/21 03/02/22 History mg-hydrochlorothiazide 25 mg tablet valacyclovir 500 mg tablet 500 mg PO QPM 90 days #90 tabs 07/11/21 03/02/22 Rx amiodarone 200 mg tablet 200 mg PO BID #180 tabs 07/12/21 03/02/22 Rx atorvastatin 80 mg tablet 80 mg PO HS #90 tabs 08/23/21 03/02/22 Rx allopurinol 100 mg tablet 100 mg PO QAM #90 tabs 08/24/21 03/02/22 Rx levothyroxine 100 mcg tablet 100 mcg PO DAILY #90 tabs 08/25/21 03/02/22 Rx metformin 500 mg tablet 500 mg PO QPM #90 tabs 09/21/21 03/02/22 Rx neomycin-bacitracn Zn-polymyxn 3.5 1 applic topical DIRECTED 10/18/21 03/02/22 History mg-400 unit-5,000 unit top oint pkt AFFECTED AREAS rivaroxaban 15 mg tablet (Xarelto) 15 mg PO DAILY #30 tabs 10/24/21 03/02/22 Rx dulaglutide 3 mg/0.5 mL 3 mg (0.5 mL) subcut WEEKLY #2 mL 01/19/22 03/02/22 Rx subcutaneous pen injector famotidine 40 mg tablet See Rx Instructions .Route 01/24/22 03/02/22 Rx .COMPLEX #90 tabs methenamine hippurate 1 gram tablet 1 g PO BID #60 tabs 01/30/22 03/02/22 Rx metoprolol succinate 50 mg 50 mg PO BID #180 tabs 02/03/22 03/02/22 Rx tablet,extended release 24 hr ondansetron 4 mg disintegrating 4 mg PO Q8H PRN nausea and 02/28/22 03/02/22 Rx tablet vomiting 3 days #10 tabs cefadroxil 1 gram tablet 1 g PO QPM 03/02/22 03/02/22 History Patient History Medical History Anemia hx Arthritis CAD (coronary artery disease) CABG X 3 (2014) Charcot's joint of foot in type 2 diabetes mellitus 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 coli infection Hyperlipidemia Hypertension Hypothyroidism IBS (irritable bowel syndrome) Incomplete emptying of bladder Myocardial Infarction 2015 On antibiotic therapy preventative for recurring wound infection to rt foot and recurring UTIs Osteoarthritis Paroxysmal atrial fibrillation dx 2015 - on xarelto - follows with Dr. Oropeza Psoriatic arthritis ON CHRONIC PREDNISONE Rectal ulcer Sensorineural hearing loss of both ears Stress incontinence in female Wheelchair dependence pt states she can stand and pivot on her own Surgical History Charcot's joint of foot RIGHT FOOT (4 SURGERIES TOTAL) History of adenoidectomy History of ankle surgery LEFT History of bilateral tubal ligation History of bladder repair surgery R/T URINARY LEAKAGE History of cardiac cath 2014= NO STENTS History of carpal tunnel surgery of left wrist (~04/20/20) History of cataract surgery RIGHT/LEFT History of colonoscopy History of coronary artery bypass graft CABG X 3 (2014) History of dilatation and curettage History of repair of rotator cuff RIGHT. 03/12/2018. DONE AT [facility]. BLOCK WITH LMA. NO ISSUES. History of surgery BLADDER STIMULATOR IMPLANTED IN BACK- PER PATIENT "NOT CURRENTLY WORKING" History of tonsillectomy History of tooth extraction History of total knee replacement LEFT Family History Mother Family hx of colon cancer Cardiac disorder Colorectal cancer Cancer Hypertension Father Cardiac disorder Lung cancer Hypertension Grandmother (Maternal) Stroke Other No family history of adverse response to anesthesia Denies family history of Ovarian cancer Breast cancer Social History Smoking Status: Never smoker Second Hand Exposure: No; Hx Alcohol Use: Yes Alcohol type: wine Hx Substance Use: No Preferred Language: Slovak Communication Ability: Effective Visual Impairment: Limited Hearing Ability: Use of Hearing Aid A P Mechanic Required: No Beliefs That Will Affect Care: None marital status: Current Living Situation: Spouse current occupational status: retired Other Information That Helps Us Care for You: No Feels Safe at Home: Yes Safety Concerns: Feels Safe At This Time caffeine: No Assistive Devices: Walker and Wheelchair Review of Systems Review of Systems: Unobtainable due to cognitive status Physical Exam Constitutional: + altered mental status and + lethargic; no acute distress Eyes: PERRL, conjunctivae normal, anicteric sclerae ENMT: external ear and nose normal, oropharynx normal Neck: trachea midline, no thyromegaly Respiratory: normal respiratory effort, lungs clear to auscultation Cardiovascular: RRR, no murmur, no edema Vessels: no JVD Extremities: no edema Gastrointestinal (Abdomen): normal bowel sounds, soft, nontender, no hepatosplenomegaly Skin: Diabetic ulcer to left foot without purulent drainage Neurologic: PERRLA, no facial palsy or dysarthria. Lethargic and confused. Psychiatric: Orientation: + not alert and + not oriented x 3 Genitourinary: Phone Mtz catheter present Results & Data Results & Data ([facility]) Vital Signs (Past 12 Hours) Vital Signs Temp Pulse Pulse Resp BP BP Pulse Ox 03/02/22 04:30 37.3 C 66 15 106/48 L 93 03/02/22 04:00 37.3 C 66 18 113/55 L 93 03/02/22 03:32 67 19 100/52 L 92 03/02/22 04:33 03/02/22 03:25 37.1 C 68 18 100/52 L 92 03/02/22 03:00 67 19 92 03/02/22 03:00 114/53 L 03/02/22 02:55 67 16 96 03/02/22 02:55 112/54 L 03/02/22 02:50 67 18 100 03/02/22 02:50 112/55 L 03/02/22 02:45 67 18 100 03/02/22 02:45 105/55 L 03/02/22 02:40 67 16 96 03/02/22 02:40 107/53 L 03/02/22 02:57 67 112/54 L 97 03/02/22 02:35 66 16 97 03/02/22 02:35 107/51 L 03/02/22 02:30 67 15 99 03/02/22 02:30 111/53 L 03/02/22 02:25 66 16 96 03/02/22 02:25 134/62 03/02/22 02:20 65 18 97 03/02/22 02:20 102/52 L 03/02/22 02:15 64 13 97 03/02/22 02:15 105/51 L 03/02/22 02:10 66 15 97 03/02/22 02:10 98/50 L 03/02/22 02:05 64 16 97 03/02/22 02:05 106/51 L 03/02/22 02:00 65 15 97 03/02/22 02:00 98/51 L 03/02/22 01:55 65 18 98 03/02/22 01:55 105/50 L 03/02/22 01:50 64 15 97 03/02/22 01:50 94/46 L 03/02/22 01:45 65 14 98 03/02/22 01:45 97/49 L 03/02/22 01:40 66 17 97 03/02/22 01:40 91/55 L 03/02/22 01:35 66 18 98 03/02/22 01:35 100/49 L 03/02/22 01:32 65 14 97 03/02/22 01:32 92/50 L 03/02/22 01:30 65 17 97 03/02/22 01:30 91/47 L 03/02/22 01:25 65 15 97 03/02/22 01:25 83/47 L 03/02/22 01:20 65 15 97 03/02/22 01:20 82/43 L 03/02/22 01:15 66 17 98 03/02/22 01:14 66 14 98 03/02/22 01:14 80/44 L 03/02/22 01:02 92 03/02/22 01:01 86/43 L 03/02/22 00:45 67 16 96 03/02/22 00:45 87/41 L 03/02/22 01:04 36.9 C 03/02/22 00:40 67 16 96 03/02/22 00:32 89/41 L 03/02/22 00:32 68 15 97 03/02/22 00:30 68 16 97 03/02/22 00:20 69 19 96 03/02/22 00:15 68 17 97 03/02/22 00:15 89/46 L 03/02/22 00:10 68 19 97 03/02/22 00:00 68 19 97 03/02/22 00:00 92/47 L 03/01/22 23:50 69 17 97 03/01/22 23:45 94/50 L 03/01/22 23:45 71 18 97 03/01/22 23:40 70 16 97 03/01/22 23:30 68 19 96 03/01/22 23:30 99/47 L 03/01/22 23:20 70 18 97 03/01/22 23:15 97/49 L 03/01/22 23:15 69 17 98 03/01/22 23:10 67 15 96 03/01/22 23:07 96 03/01/22 23:06 93/46 L 03/01/22 22:49 79/52 L 03/01/22 22:49 94 03/01/22 22:40 87/40 L 96 03/01/22 22:40 69 14 03/01/22 22:30 69 19 95 03/01/22 22:23 83/38 L 03/01/22 22:23 69 18 93 03/01/22 22:18 82/41 L 03/01/22 22:18 70 19 03/01/22 22:03 70 21 93 03/01/22 22:03 183/148 H 03/01/22 22:00 70 21 91 03/01/22 21:58 70 20 88 L 03/01/22 22:07 70 20 82/41 L 95 03/01/22 22:09 03/01/22 21:27 38 C H 70 20 183/148 H 93 O2 Del Method O2 Flow Rate 03/02/22 04:30 Nasal Cannula 2 03/02/22 04:00 Nasal Cannula 2 03/02/22 03:32 Nasal Cannula 2 03/02/22 04:33 Nasal Cannula 2 03/02/22 03:25 Nasal Cannula 2 03/02/22 03:00 Nasal Cannula 2 03/02/22 03:00 03/02/22 02:55 03/02/22 02:55 03/02/22 02:50 03/02/22 02:50 03/02/22 02:45 03/02/22 02:45 03/02/22 02:40 03/02/22 02:40 03/02/22 02:57 Nasal Cannula 03/02/22 02:35 03/02/22 02:35 03/02/22 02:30 03/02/22 02:30 03/02/22 02:25 03/02/22 02:25 03/02/22 02:20 03/02/22 02:20 03/02/22 02:15 03/02/22 02:15 03/02/22 02:10 03/02/22 02:10 03/02/22 02:05 03/02/22 02:05 03/02/22 02:00 03/02/22 02:00 03/02/22 01:55 03/02/22 01:55 03/02/22 01:50 03/02/22 01:50 03/02/22 01:45 03/02/22 01:45 03/02/22 01:40 03/02/22 01:40 03/02/22 01:35 03/02/22 01:35 03/02/22 01:32 03/02/22 01:32 03/02/22 01:30 03/02/22 01:30 03/02/22 01:25 03/02/22 01:25 03/02/22 01:20 03/02/22 01:20 03/02/22 01:15 03/02/22 01:14 03/02/22 01:14 03/02/22 01:02 03/02/22 01:01 03/02/22 00:45 03/02/22 00:45 03/02/22 01:04 03/02/22 00:40 03/02/22 00:32 03/02/22 00:32 03/02/22 00:30 03/02/22 00:20 03/02/22 00:15 03/02/22 00:15 03/02/22 00:10 03/02/22 00:00 03/02/22 00:00 03/01/22 23:50 03/01/22 23:45 03/01/22 23:45 03/01/22 23:40 03/01/22 23:30 03/01/22 23:30 03/01/22 23:20 03/01/22 23:15 03/01/22 23:15 03/01/22 23:10 03/01/22 23:07 03/01/22 23:06 03/01/22 22:49 03/01/22 22:49 03/01/22 22:40 03/01/22 22:40 03/01/22 22:30 03/01/22 22:23 03/01/22 22:23 03/01/22 22:18 03/01/22 22:18 03/01/22 22:03 03/01/22 22:03 03/01/22 22:00 03/01/22 21:58 03/01/22 22:07 Room Air 03/01/22 22:09 Nasal Cannula 2 03/01/22 21:27 Nasal Cannula 2 Coding Level of Care Code Critical Care 1st 30-74 mins Diagnoses Septic shock A41.9; R65.21 Diabetic ulcer of left foot associated with type 2 diabetes mellitus, with necrosis of bone E11.621; L97.524 Gout M10.9 CAD (coronary artery disease) I25.10 Dyslipidemia E78.5 Hypothyroidism E03.9 Depression F32.9 Vitamin B12 deficiency E53.8 GERD without esophagitis K21.9 Neurogenic bladder N31.9 Recurrent UTI (urinary tract infection) N39.0 Hypertension I10 Paroxysmal atrial fibrillation I48.0
--- NOTE | 2022-03-02 05:10 | Billing Data ---
Date of Service March 02, 2022 Coding Level of Care Code Critical Care 1st - mins
[2022-03-02 05:29] LABS: Albumin Level 3.3 gm/dl (3.4-5.0); Bilirubin Direct 0.5 mg/dl (0-0.2); Bilirubin,Total 2.4 mg/dl (0.2-1.0); Phosphorus 5.2 mg/dl (2.5-4.9); Total Protein 6.1 gm/dl (6.0-8.3)
[2022-03-02] MEDS ORDERED: NORMOSOL-R 1,000 ML IV SCH ×2 (05:30→10:30)
--- NOTE | 2022-03-02 06:38 | Ultrasound Report ---
LEFT LOWER EXTREMITY VENOUS DOPPLER HISTORY: Acute pain and swelling of the left lower leg swollen hot red leg COMPARISON STUDY: None. FINDINGS: There is normal compressibility, flow, and augmentation within the left lower extremity mayte p venous system. Subcutaneous edema. IMPRESSION: No DVT within the left lower extremity. ACT 112: Negative or not required by law. Electronically signed by: Alfredito Ruvalcaba M.D. 03/02/2022 6:35 AM
--- NOTE | 2022-03-02 06:52 | CT Scan Report ---
CT head/brain wo con CLINICAL HISTORY: 76 years-old Female with ams. Acutely altered mental status TECHNIQUE: Multiple axial CT images of the head were obtained without contrast. A dose lowering tech nique was utilized adhering to the principles of ALARA. COMPARISON: CT cervical spine of same day FINDINGS: No acute intracranial hemorrhage, midline shift, intracranial mass, hydrocephalus, territorial ischem ia or abnormal extra-axial collection. Involutional changes. White matter hypodensities suggestive of chronic microvascular ischemic disease. Calcifications of the falx cerebri. The calvarium is intact. Prior bilateral lens repair. The paranasal sinuses, mastoid air cells, and m iddle ear cavities are clear. IMPRESSION: No acute intracranial abnormality. ACT 112: Negative or not required by law. The above report was generated using voice recognition software. It may contain grammatical, syntax o r spelling errors. Electronically signed by: Alfredito Ruvalcaba M.D. 03/02/2022 6:50 AM
--- NOTE | 2022-03-02 07:18 | CT Scan Report ---
CT cervical spine wo con CLINICAL HISTORY: 76 years-old Female with fall. Acute head and neck injury status post fall COMPARISON: Head CT of same day. TECHNIQUE: Multiple axial CT images of the cervical spine were obtained without contrast. A dose low ering technique was utilized adhering to the principles of ALARA. FINDINGS: 3 mm anterolisthesis C6 on C7 is likely on a degenerative basis. Multilevel disc space narr owing is severe at C3-C4 and C5-C6 with degenerative partial bony fusion of the C3-C4 level. Uncovert ebral hypertrophy with posterior disc osteophyte complex formations. Straightening of the normal cerv ical lordosis. No acute fracture or subluxation identified. Severe multilevel facet arthrosis with de generative partial bony fusion involving numerous facet joints. Multilevel neural foraminal narrowing . Prior median sternotomy. Unremarkable soft tissues. Calcified plaque of the carotid bulbs and proxima l cervical segments of the internal carotid arteries. The visualized lung apices appear clear. IMPRESSION: No acute cervical spine fracture identified. ACT 112: Negative or not required by law. The above report was generated using voice recognition software. It may contain grammatical, syntax o r spelling errors. Electronically signed by: Alfredito Ruvalcaba M.D. 03/02/2022 7:17 AM
[2022-03-02 07:45] LABS: Albumin Globulin Ratio 1.1 (0.9-2); Albumin Level 3.1 gm/dl (3.4-5.0); BUN Creatinine Ratio 18.8 (10-20); Bilirubin,Total 2.7 mg/dl (0.2-1.0); Calcium 7.5 mg/dl (8.5-10.1); Creatinine Clr Calc Pharmacy 29.8 ml/min; Est GFR (African American) 34.4 ml/min; Est GFR (Non-African American) 29.6 ml/min; Globulin 2.8 gm/dl (2.5-4.0); Potassium 4.1 mmol/L (3.5-5.1); Total Protein 5.9 gm/dl (6.0-8.3)
[2022-03-02] MEDS: ICU Protocol for HYPERglycemia SCH ×4 (07:47→20:37)
--- NOTE | 2022-03-02 07:52 | XRay Report ---
XR chest 1V portable HISTORY: 76 years-old Female Sepsis acute sepsis COMPARISON: CT abdomen and pelvis of same day TECHNIQUE: AP view of the chest FINDINGS: Cardiomegaly with prior median sternotomy and CABG. Subsegmental bibasilar atelectasis. Pulmonary vas cular congestion. There is no pneumothorax, pleural effusion or lobar airspace consolidation. Bilater al shoulder rotator cuff calcific tendinosis. Degenerative changes of the shoulders and spine. IMPRESSION: 1. Cardiomegaly with pulmonary vascular congestion 2. Subsegmental bibasilar atelectasis. ACT 112: Negative or not required by law. The above report was generated using voice recognition software. It may contain grammatical, syntax o r spelling errors. Electronically signed by: Alfredito Ruvalcaba M.D. 03/02/2022 7:51 AM
[2022-03-02] MEDS ORDERED: STAT IV STA (08:06)
[2022-03-02] MEDS ORDERED: CALCIUM GLUCONATE 10% 2,000 MG in DEXTROSE 5% 50 ML IV ONE (08:15)
--- NOTE | 2022-03-02 08:52 | CT Scan Report ---
CT SCAN OF THE ABDOMEN AND PELVIS WITHOUT IV CONTRAST CLINICAL HISTORY: Fall. COMPARISON STUDY: Abdominal CT dated 10/18/2021. TECHNIQUE: CT scan of the abdomen and pelvis is performed from the lung bases to the proximal femora. Images are reviewed in the axial, sagittal, and coronal planes. IV contrast was not administered for this examination. Note that the examination was performed in significantly suboptimal fashion withou t IV contrast. There is also streak artifact from the arms which could not be elevated above the abdo men as well as motion artifact. A dose lowering technique was utilized adhering to the principles of ALARA. CT DOSE: 2389.30 mGy.cm FINDINGS: Lung bases: The patient is status post midline sternotomy. The heart is enlarged and without pericard ial effusion. The coronary arteries are densely calcified. There is a tiny hiatal hernia. Dependent a irspace consolidation is seen bilaterally. No large pleural effusion or basilar pneumothorax is ident ified. Liver: The unenhanced liver is enlarged, measuring 22.7 cm in length. The liver is otherwise normal i n contour and attenuation. There is no intrahepatic biliary ductal dilatation. Gallbladder: Gallstones are suggested, with no CT evidence of acute cholecystitis. Spleen: Normal in size and attenuation. Pancreas: The unenhanced pancreas is grossly unremarkable. Adrenal glands: Unremarkable. Kidneys: The unenhanced kidneys demonstrate cortical atrophy and are without hydronephrosis. Renovasc ular calcifications are seen bilaterally. No definite renal calculi are identified. There is no evide nce of contour deforming renal mass lesion. Foci of cortical scarring are seen on the left. Abdominal vasculature: The abdominal aorta is normal in course and caliber noting advanced atheroscle rotic calcification. Bowel: There is moderate colonic fecal retention. No bowel obstruction is seen. There is moderate col onic diverticulosis without CT evidence of acute diverticulitis. Duodenal diverticula are incidentall y noted. The appendix is well-visualized and normal. Peritoneum: There is no intraperitoneal free air or abdominal ascites. There is a fat-containing umbi lical hernia. Lymphadenopathy: None. Pelvic viscera: The bladder is normal as visualized. There are calcified uterine fibroids. No adnexal lesion is seen. Skeletal structures: The skeletal structures are osteopenic. There is moderate to advanced lumbosacra l spondylosis. No lytic or blastic lesions are seen. A sacral stimulator device is present in the rig ht gluteal tissues. IMPRESSION: 1. Significantly suboptimal examination without IV contrast. There is also streak and motion artifact . 2. There is no evidence of solid organ injury in the abdomen or pelvis. 3. Dependent consolidation is present in both lung bases. Correlate clinically for evidence of pneumo london/aspiration pneumonitis. 4. Hepatomegaly. 5. Colonic diverticulosis without CT evidence of acute diverticulitis. 6. Cholelithiasis. 7. Additional findings as above. ACT 112: Negative or not required by law. Electronically signed by: Yan Ruiz M.D. 03/02/2022 8:50 AM
--- NOTE | 2022-03-02 09:14 | CT Scan Report ---
CT SCAN OF THE LEFT FOOT WITHOUT IV CONTRAST CLINICAL HISTORY: Left first toe pain/infection. COMPARISON STUDY: Radiographs of the left foot dated 03/01/2022. TECHNIQUE: CT scan of the left foot is performed from the ankle joint to the base of the foot. Images are reviewed in the axial, sagittal, and coronal planes. IV contrast was not administered for this e xamination. A dose lowering technique was utilized adhering to the principles of ALARA. CT DOSE: 223.44 mGy.cm FINDINGS: The skeletal structures are osteopenic. No acute fracture is seen. Chronic posttraumatic de formity is noted in the distal tibia and fibula with postsurgical change in the lateral malleolus. Th e ankle mortise appears intact, noting degenerative change at the tibiotalar articulation. A large do rsal heel spur is noted. Erosive change is suggested involving the dorsal and plantar base of the fir st proximal phalanx. There is also mild periostitis along the plantar aspect of the first proximal ph alanx. Significant soft tissue edema is present around the first metatarsophalangeal joint with derma l thickening and evidence of a wound. No organized fluid collection is seen on this unenhanced examin ation. No additional foci of bony erosion are suggested. There is marked fatty atrophy of the regiona l musculature. Mild degenerative change is seen throughout the foot. The Achilles tendon is intact as imaged. IMPRESSION: 1. There is evidence of a wound/cellulitis of the first toe, greatest at the level of the metatarsoph alangeal joint. 2. There is bony erosion suggested along the dorsal and plantar base of the first proximal phalanx. T he appearance is suspicious for osteomyelitis and clinical correlation will be required. 3. No acute fracture is seen. 4. There is no organized fluid collection to suggest abscess. ACT 112: Negative or not required by law. Electronically signed by: Yan Ruiz M.D. 03/02/2022 9:12 AM
--- NOTE | 2022-03-02 09:38 | Hospitalist Progress Note ---
Date of Service March 02, 2022 Assessment & Plan (1) Septic shock: Plan: Septic shock secondary to diabetic foot ulcer of left foot- CT scan suspicious for osteomyelitis Patient remained hypotensive after receiving 3 and half liters of normal saline in ED Remains on Levophed, still in ICU (2) Diabetes: Plan: Hold metformin and dulaglutide; last hemoglobin alc= 6.7 (02/21) Placed on ICU hyperglycemic protocol (3) Diabetic foot ulcer: Plan: - Previous wound culture from 02/21 grew Enterococcus faecalis - Currently on meropenem and daptomycin - Orthopedics consulted; no plan for procedure acutely - CT with evidence suspicious for osteomyelitis in the left foot - Blood culture pending (4) CAD (coronary artery disease): Plan: CAD/hypertension/atrial fibrillation- Rate controlled and hypotensive Holding amiodarone and metoprolol succinate (5) Diabetic peripheral neuropathy associated with type 2 diabetes mellitus: Plan: Hold gabapentin until taking p.o. (6) Dyslipidemia: Plan: Hold atorvastatin until taking p.o. (7) Hypothyroidism: Plan: Hold levothyroxine (8) GERD without esophagitis: Plan: Placed on famotidine 20 mg IV every 12 hours (9) Charcot's joint of foot in type 2 diabetes mellitus: Plan: Mangement as per above (10) Hypertension: (11) Gout: (12) Fibromyalgia: Admission and Anticipated Discharge Date Admission Date: March 02, 2022 Supervising Physician Co-Signing Physician Notes I personally examined the patient and verified all porter points of history and exam, discussed case, and agree with decision making with Dr Brand. Feeling much better than last night. Does not really have feeling in feet. notes she is acting like herself. She notes she does not really remember last night. Vitals noted, in general she is awake and alert pleasant no distress. HEENT normocephalic atraumatic mucous membranes moist. Breathing unlabored no accessory muscle use good effort. Skin without rashes pallor or icterus. Foot ulcer noted. Appears a bit necrotic in places, but no tracking erythema Septic shockpresumed source of foot infection. Vigilance for other sources, but is improving. Continue supportive care and antibiotics. Otherwise as above, appreciate ICU. Subjective 76 year old female with a past medical history of osteomyelitis, diabetic foot ulcer, gout, colon polyps, CAD, diabetic peripheral neuropathy, dyslipidemia, fibromyalgia, foot deformity, hypothyroidism, depression, vitamin B12 deficiency, GERD without esophagitis, neurogenic bladder, diabetes mellitus, recurrent UTI, rectal incontinence, Charcot's joint of foot, hypertension, anemia, paroxysmal atrial fibrillation and psoriatic arthritis. Presented to ED with AMS, fever/chills and left foot ulcer. Hypotensive to 80s systolic. Had a dose of Dalvance ordered by wound care prior to arrival to ED. CT scan suspicious for osteomyelitis. Got 3.5 L of fluid in ED and still was hypotensive, started on Levophed. Started on Daptomycin, Meropenem. Nadia is doing well this morning. States she feeling significantly better than yesterday. Mental status back to baseline; oriented to person, place, date. Denies lightheadedness, chest pain, foot pain, dyspnea. Review of Systems Review of Systems: As per HPI Physical Exam Physical Exam: Constitutional: well-appearing, no acute distress HEENT: NCAT, no conjunctival injection CV: regular rhythm, no murmur appreciated, extremities well-perfused, no LE edema Resp: CTABL, no wheezes/rales/rhonchi appreciated, no increased work of breathing GI: soft, nondistended, nontender, BS normoactive MSK: no gross deformities appreciated; wound on left foot wrapped-dressing dry/clean Skin: warm, dry, no rash appreciated Neuro: alert, oriented, no focal neurologic deficit appreciated Results & Data Results & Data ([facility]) Vital Signs (Past 12 Hours) Vital Signs Temp Pulse Pulse Resp BP BP Pulse Ox 03/02/22 06:30 37.3 C 67 19 102/42 L 93 03/02/22 06:00 37.2 C 66 16 102/47 L 96 03/02/22 05:30 37.2 C 66 20 109/47 L 96 03/02/22 05:00 37.2 C 66 16 99/46 L 94 03/02/22 04:30 37.3 C 66 15 106/48 L 93 03/02/22 04:00 37.3 C 66 18 113/55 L 93 03/02/22 03:32 67 19 100/52 L 92 03/02/22 04:33 03/02/22 03:25 37.1 C 68 18 100/52 L 92 03/02/22 03:00 67 19 92 03/02/22 03:00 114/53 L 03/02/22 02:55 67 16 96 03/02/22 02:55 112/54 L 03/02/22 02:50 67 18 100 03/02/22 02:50 112/55 L 03/02/22 02:45 67 18 100 03/02/22 02:45 105/55 L 03/02/22 02:40 67 16 96 03/02/22 02:40 107/53 L 03/02/22 02:57 67 112/54 L 97 03/02/22 02:35 66 16 97 03/02/22 02:35 107/51 L 03/02/22 02:30 67 15 99 03/02/22 02:30 111/53 L 03/02/22 02:25 66 16 96 03/02/22 02:25 134/62 03/02/22 02:20 65 18 97 03/02/22 02:20 102/52 L 03/02/22 02:15 64 13 97 03/02/22 02:15 105/51 L 03/02/22 02:10 66 15 97 03/02/22 02:10 98/50 L 03/02/22 02:05 64 16 97 03/02/22 02:05 106/51 L 03/02/22 02:00 65 15 97 03/02/22 02:00 98/51 L 03/02/22 01:55 65 18 98 03/02/22 01:55 105/50 L 03/02/22 01:50 64 15 97 03/02/22 01:50 94/46 L 03/02/22 01:45 65 14 98 03/02/22 01:45 97/49 L 03/02/22 01:40 66 17 97 03/02/22 01:40 91/55 L 03/02/22 01:35 66 18 98 03/02/22 01:35 100/49 L 03/02/22 01:32 65 14 97 03/02/22 01:32 92/50 L 03/02/22 01:30 65 17 97 03/02/22 01:30 91/47 L 03/02/22 01:25 65 15 97 03/02/22 01:25 83/47 L 03/02/22 01:20 65 15 97 03/02/22 01:20 82/43 L 03/02/22 01:15 66 17 98 03/02/22 01:14 66 14 98 03/02/22 01:14 80/44 L 03/02/22 01:02 92 03/02/22 01:01 86/43 L 03/02/22 00:45 67 16 96 03/02/22 00:45 87/41 L 03/02/22 01:04 36.9 C 03/02/22 00:40 67 16 96 03/02/22 00:32 89/41 L 03/02/22 00:32 68 15 97 03/02/22 00:30 68 16 97 03/02/22 00:20 69 19 96 03/02/22 00:15 68 17 97 03/02/22 00:15 89/46 L 03/02/22 00:10 68 19 97 03/02/22 00:00 68 19 97 03/02/22 00:00 92/47 L 03/01/22 23:50 69 17 97 03/01/22 23:45 94/50 L 03/01/22 23:45 71 18 97 03/01/22 23:40 70 16 97 03/01/22 23:30 68 19 96 03/01/22 23:30 99/47 L 03/01/22 23:20 70 18 97 03/01/22 23:15 97/49 L 03/01/22 23:15 69 17 98 03/01/22 23:10 67 15 96 03/01/22 23:07 96 03/01/22 23:06 93/46 L 03/01/22 22:49 79/52 L 03/01/22 22:49 94 03/01/22 22:40 87/40 L 96 03/01/22 22:40 69 14 03/01/22 22:30 69 19 95 03/01/22 22:23 83/38 L 03/01/22 22:23 69 18 93 03/01/22 22:18 82/41 L 03/01/22 22:18 70 19 03/01/22 22:03 70 21 93 03/01/22 22:03 183/148 H 03/01/22 22:00 70 21 91 03/01/22 21:58 70 20 88 L 03/01/22 22:07 70 20 82/41 L 95 03/01/22 22:09 O2 Del Method O2 Flow Rate 03/02/22 06:30 Nasal Cannula 2 03/02/22 06:00 Nasal Cannula 2 03/02/22 05:30 Nasal Cannula 2 03/02/22 05:00 Nasal Cannula 2 03/02/22 04:30 Nasal Cannula 2 03/02/22 04:00 Nasal Cannula 2 03/02/22 03:32 Nasal Cannula 2 03/02/22 04:33 Nasal Cannula 2 03/02/22 03:25 Nasal Cannula 2 03/02/22 03:00 Nasal Cannula 2 03/02/22 03:00 03/02/22 02:55 03/02/22 02:55 03/02/22 02:50 03/02/22 02:50 03/02/22 02:45 03/02/22 02:45 03/02/22 02:40 03/02/22 02:40 03/02/22 02:57 Nasal Cannula 03/02/22 02:35 03/02/22 02:35 03/02/22 02:30 03/02/22 02:30 03/02/22 02:25 03/02/22 02:25 03/02/22 02:20 03/02/22 02:20 03/02/22 02:15 03/02/22 02:15 03/02/22 02:10 03/02/22 02:10 03/02/22 02:05 03/02/22 02:05 03/02/22 02:00 03/02/22 02:00 03/02/22 01:55 03/02/22 01:55 03/02/22 01:50 03/02/22 01:50 03/02/22 01:45 03/02/22 01:45 03/02/22 01:40 03/02/22 01:40 03/02/22 01:35 03/02/22 01:35 03/02/22 01:32 03/02/22 01:32 03/02/22 01:30 03/02/22 01:30 03/02/22 01:25 03/02/22 01:25 03/02/22 01:20 03/02/22 01:20 03/02/22 01:15 03/02/22 01:14 03/02/22 01:14 03/02/22 01:02 03/02/22 01:01 03/02/22 00:45 03/02/22 00:45 03/02/22 01:04 03/02/22 00:40 03/02/22 00:32 03/02/22 00:32 03/02/22 00:30 03/02/22 00:20 03/02/22 00:15 03/02/22 00:15 03/02/22 00:10 03/02/22 00:00 03/02/22 00:00 03/01/22 23:50 03/01/22 23:45 03/01/22 23:45 03/01/22 23:40 03/01/22 23:30 03/01/22 23:30 03/01/22 23:20 03/01/22 23:15 03/01/22 23:15 03/01/22 23:10 03/01/22 23:07 03/01/22 23:06 03/01/22 22:49 03/01/22 22:49 03/01/22 22:40 03/01/22 22:40 03/01/22 22:30 03/01/22 22:23 03/01/22 22:23 03/01/22 22:18 03/01/22 22:18 03/01/22 22:03 03/01/22 22:03 03/01/22 22:00 03/01/22 21:58 03/01/22 22:07 Room Air 03/01/22 22:09 Nasal Cannula 2 Resident Activity Tracking Resident Involvement: Resident Care Provided Care Provided: Adult Hospital Medicine
--- NOTE | 2022-03-02 10:25 | XRay Report ---
LEFT FOOT 2 VIEWS CLINICAL HISTORY: Left foot ulcer. FINDINGS: AP and lateral views of the left foot are compared to study dated 02/21/2022. The skeletal structures are osteopenic. No acute fracture is seen. There is chronic posttraumatic deformity of the distal tibia and fibula with a buttress plate along the distal fibular cortex. There is a large dors al calcaneal enthesophyte. No bony erosion or periostitis is identified. Mild osteoarthritic change i s seen at the first metatarsophalangeal joint and throughout the tarsometatarsal joints. Soft tissue swelling is present within the first toe with an ulceration suggested at the level of the first MTP. Soft tissue calcifications may represent packing material. IMPRESSION: 1. No acute bony abnormality is evident. 2. Osteopenia with chronic and degenerative changes as above. 3. Soft tissue edema in the first toe with evidence of an ulceration. Clinical correlation will be re quired. Dictated: 03/02/2022 9:50 AM Transcribed: 03/02/2022 10:20 AM Wilda [id number] MARIA LUZ_Radha Electronically signed by: Yan Ruiz M.D. 03/02/2022 10:24 AM
--- NOTE | 2022-03-02 10:34 | XCELERA ---
[id number]
--- NOTE | 2022-03-02 11:09 | Orthopedic Consultation ---
Date of Consultation March 02, 2022 Assessment & Plan (1) Chronic ulcer of left foot: Patient was educated regarding today's findings. Wound is currently stable. It will likely require further debridement. Does not appear to be osteomyelitis. She is currently receiving daptomycin and meropenem. Patient is currently febrile with a temperature of 37.6. Urine and blood cultures are pending. Previous surface wound culture from her foot February 21 of this year grew Enterococcus faecalis. Continue antibiotics for now. Await for culture results. She does not require any emergent surgical intervention at this time. Given her history of Charcot changes, any surgical planning will require careful consideration. If fails to improve or develop osteomyelitis possibility, of digit or transmetatarsal amputation exists. Following care plan discussed and formulated by Dr. Stephens. I, Dr. Stephens, saw and examined the patient and discussed the management with my PA. I reviewed my PAs note and agree with the documented findings and the plan of care I developed. Also discussed care with Dr. Beard who is happy to follow as an outpatient. History of Present Illness Reason for Consultation: Left foot ulceration Requesting Physician: Roman Stephens MD Attending Physician: Vishal Franklin DO History of Present Illness This 76-year-old female is well-known to me from previous office visits. She has a longstanding history of diabetic neuropathy and Charcot foot. She also has a longstanding history of foot ulcerations. Office notes reviewed reveal previous left foot ulceration from March of this year. Patient has been seeking treatment for this at the wound care center. By history she received Dalvance at the wound care center for cellulitis. She became significantly confused yesterday and developed a fever. She was brought to the ED by [facility] ambulance and was thought to be septic. Patient was admitted after receiving Maxipime and vancomycin. She was found to have an acute kidney injury as well as elevated LFTs, and was thought to be in septic shock. Orthopedics was consulted for evaluation of her left foot. Patient currently denies any pain in her foot. She has known diabetic neuropathy and does not have much sensation in the lower legs or feet. She is currently quite lucid and has normal mentation. Allergies Allergy/AdvReac Type Severity Reaction Status Date / Time sulfamethoxazole Allergy Intermediate Hives Verified 03/01/22 08:43 [From Bactrim] trimethoprim [From Bactrim] Allergy Intermediate Hives Verified 03/01/22 08:43 tetanus toxoid, adsorbed Allergy Mild LOCALIZED Verified 03/01/22 08:43 REACTION, MADE HER FEEL SICK amoxicillin AdvReac Intermediate "GOT Verified 03/01/22 08:43 C-DIFF" minocycline AdvReac Mild HEADACHES Verified 03/01/22 08:43 tetracycline AdvReac Mild HEADACHES Verified 03/01/22 08:43 Home Medications Medication Instructions Recorded Confirmed Type gabapentin 400 mg capsule 400 mg PO TID 02/19/18 03/02/22 History magnesium 250 mg tablet 250 mg PO HS 02/19/18 03/02/22 History multivitamin 1 tab PO QPM 02/19/18 03/02/22 History potassium 99 mg tablet 1 tab PO HS 02/19/18 03/02/22 History cyanocobalamin (B12)-cobamamide 1,000 mcg sublingual QAM 03/12/18 03/02/22 History 5,000 mcg-100 mcg sublingual tablet (B-12 Plus) triamcinolone acetonide 55 mcg 1 spray intranasal HS 03/12/18 03/02/22 History nasal spray aerosol (Nasacort) risedronate 150 mg tablet 150 mg PO WK 02/23/20 03/02/22 History nitroglycerin 0.4 mg sublingual 0.4 mg sublingual Q5M PRN Chest 03/29/20 03/02/22 Rx tablet (Nitrostat) Pain #25 tabs calcium carbonate 500 mg-vitamin 2 tab PO QPM 06/14/20 03/02/22 History D3 5 mcg (200 unit) tablet (Calcium 500 + D) conjugated estrogens 0.625 mg/gram 0.625 mg vaginal 2XWK 03/07/21 03/02/22 History vaginal cream (Premarin) mirabegron 50 mg tablet,extended 50 mg PO QPM 04/06/21 03/02/22 History release 24 hr (Myrbetriq) duloxetine 30 mg capsule,delayed 30 mg PO QAM 05/16/21 03/02/22 History release (Cymbalta) esomeprazole magnesium 40 mg 40 mg PO QAM 05/16/21 03/02/22 History capsule,delayed release (Nexium) ferrous sulfate 325 mg (65 mg 325 mg PO Q OTHER DAY 05/16/21 03/02/22 History iron) tablet (iron) triamterene 37.5 1 tab PO QAM 05/16/21 03/02/22 History mg-hydrochlorothiazide 25 mg tablet valacyclovir 500 mg tablet 500 mg PO QPM 90 days #90 tabs 07/11/21 03/02/22 Rx amiodarone 200 mg tablet 200 mg PO BID #180 tabs 07/12/21 03/02/22 Rx atorvastatin 80 mg tablet 80 mg PO HS #90 tabs 08/23/21 03/02/22 Rx allopurinol 100 mg tablet 100 mg PO QAM #90 tabs 08/24/21 03/02/22 Rx levothyroxine 100 mcg tablet 100 mcg PO DAILY #90 tabs 08/25/21 03/02/22 Rx metformin 500 mg tablet 500 mg PO QPM #90 tabs 09/21/21 03/02/22 Rx neomycin-bacitracn Zn-polymyxn 3.5 1 applic topical DIRECTED 10/18/21 1 05/03/21 History mg-400 unit-5,000 unit top oint pkt AFFECTED AREAS rivaroxaban 15 mg tablet (Xarelto) 15 mg PO DAILY #30 tabs 10/24/21 03/02/22 Rx dulaglutide 3 mg/0.5 mL 3 mg (0.5 mL) subcut WEEKLY #2 mL 01/19/22 03/02/22 Rx subcutaneous pen injector famotidine 40 mg tablet See Rx Instructions .Route 01/24/22 03/02/22 Rx .COMPLEX #90 tabs methenamine hippurate 1 gram tablet 1 g PO BID #60 tabs 01/30/22 03/02/22 Rx metoprolol succinate 50 mg 50 mg PO BID #180 tabs 02/03/22 03/02/22 Rx tablet,extended release 24 hr ondansetron 4 mg disintegrating 4 mg PO Q8H PRN nausea and 02/28/22 03/02/22 Rx tablet vomiting 3 days #10 tabs cefadroxil 1 gram tablet 1 g PO QPM 03/02/22 03/02/22 History Patient History Medical History Anemia hx Arthritis CAD (coronary artery disease) CABG X 3 (2014) Charcot's joint of foot in type 2 diabetes mellitus 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 coli infection Hyperlipidemia Hypertension Hypothyroidism IBS (irritable bowel syndrome) Incomplete emptying of bladder Myocardial Infarction 2015 On antibiotic therapy preventative for recurring wound infection to rt foot and recurring UTIs Osteoarthritis Paroxysmal atrial fibrillation dx 2015 - on xarelto - follows with Dr. Oropeza Psoriatic arthritis ON CHRONIC PREDNISONE Rectal ulcer Sensorineural hearing loss of both ears Stress incontinence in female Wheelchair dependence pt states she can stand and pivot on her own Surgical History Charcot's joint of foot RIGHT FOOT (4 SURGERIES TOTAL) History of adenoidectomy History of ankle surgery LEFT History of bilateral tubal ligation History of bladder repair surgery R/T URINARY LEAKAGE History of cardiac cath 2014= NO STENTS History of carpal tunnel surgery of left wrist (~04/20/20) History of cataract surgery RIGHT/LEFT History of colonoscopy History of coronary artery bypass graft CABG X 3 (2014) History of dilatation and curettage History of repair of rotator cuff RIGHT. 03/12/2018. DONE AT [facility]. BLOCK WITH LMA. NO ISSUES. History of surgery BLADDER STIMULATOR IMPLANTED IN BACK- PER PATIENT "NOT CURRENTLY WORKING" History of tonsillectomy History of tooth extraction History of total knee replacement LEFT Family History Mother Family hx of colon cancer Cardiac disorder Colorectal cancer Cancer Hypertension Father Cardiac disorder Lung cancer Hypertension Grandmother (Maternal) Stroke Other No family history of adverse response to anesthesia Denies family history of Ovarian cancer Breast cancer Social History Smoking Status: Never smoker Second Hand Exposure: No; Hx Alcohol Use: Yes Alcohol type: wine Hx Substance Use: No Preferred Language: Cuban Communication Ability: Effective Visual Impairment: Limited Hearing Ability: Use of Hearing Aid Geology Associate Required: No Beliefs That Will Affect Care: None marital status: Current Living Situation: Spouse current occupational status: retired Feels Safe at Home: Yes caffeine: No Assistive Devices: Walker and Wheelchair Review of Systems Review of Systems: All systems reviewed & are unremarkable except as noted in HPI & below Physical Exam Physical Exam: General: Well-developed, well-nourished, elderly female, in no acute distress. Laying in bed. Alert and oriented. Conversive. Mentating normally. Skin: Warm and dry with good turgor. Lower extremities have equal warmth. No significant erythema present on either lower leg. She does have bandages present on the medial and lateral aspect of her left foot. There is also a bandage present on the right heel. Upon removal, right heel has no open wound. There are no areas of ulceration or drainage on the right foot. There is a callous centrally in the plantar aspect of the right foot, with no evidence of infection. Left foot evaluation reveals some superficial scabbing present over the lateral aspect of the foot along the fifth metatarsal. No open wounds. There is nothing draining. Area is nonfluctuant and nontender to touch. First MTP joint has a large area of callus and 2 separate dry eschars approximately dime size. These are firm, nonfluctuant, and nontender. Minimal erythema surrounding the first MTP joint. No current lymphangitis on the foot and no edema. Previous ankle scars are stable and have no indication of infection. Musculoskeletal: Patient has intact motor function of the hips and knees. She has known DJD of the knees. No functional motion of the ankles and limited motion of the toes. Neurologic: Gross sensation is intact across both lower extremities down to the knees. She has decreasing peripheral sensation on the shins and absence of sensation on her feet. Peripheral pulses are 1+. Capillary refill is equal for each of the digits. Results & Data ([facility]) Vital Signs (Past 12 Hours) Vital Signs Temp Pulse Pulse Resp BP BP Pulse Ox 03/02/22 10:15 37.6 C H 70 26 H 96 03/02/22 10:02 37.6 C H 70 20 92 03/02/22 10:02 100/45 L 03/02/22 10:00 37.6 C H 70 17 93 03/02/22 09:45 37.6 C H 70 18 94 03/02/22 09:32 111/57 L 03/02/22 09:32 37.6 C H 69 19 93 03/02/22 09:30 37.6 C H 68 21 97 03/02/22 09:15 37.6 C H 71 16 92 03/02/22 09:02 37.7 C H 72 19 93 03/02/22 09:02 107/52 L 03/02/22 09:00 37.7 C H 71 22 89 L 03/02/22 08:51 108/49 L 03/02/22 08:51 37.7 C H 69 23 91 03/02/22 08:45 37.6 C H 71 25 H 92 03/02/22 08:33 91/44 L 03/02/22 08:33 37.6 C H 68 16 93 03/02/22 08:30 37.6 C H 68 19 92 03/02/22 08:15 37.6 C H 70 16 92 03/02/22 08:02 37.6 C H 68 19 92 03/02/22 08:02 117/56 L 03/02/22 08:00 37.6 C H 68 18 92 03/02/22 07:45 37.5 C 69 19 93 03/02/22 07:32 37.5 C 67 18 94 03/02/22 07:32 114/56 L 03/02/22 07:30 37.5 C 68 19 93 03/02/22 07:15 37.4 C 67 18 94 03/02/22 07:02 37.4 C 67 19 93 03/02/22 07:02 121/59 L 03/02/22 07:00 37.4 C 67 18 93 03/02/22 08:00 03/02/22 06:30 37.3 C 67 19 102/42 L 93 03/02/22 06:00 37.2 C 66 16 102/47 L 96 03/02/22 05:30 37.2 C 66 20 109/47 L 96 03/02/22 05:00 37.2 C 66 16 99/46 L 94 03/02/22 04:30 37.3 C 66 15 106/48 L 93 03/02/22 04:00 37.3 C 66 18 113/55 L 93 03/02/22 03:32 67 19 100/52 L 92 03/02/22 04:33 03/02/22 03:25 37.1 C 68 18 100/52 L 92 03/02/22 03:00 67 19 92 03/02/22 03:00 114/53 L 03/02/22 02:55 67 16 96 03/02/22 02:55 112/54 L 03/02/22 02:50 67 18 100 03/02/22 02:50 112/55 L 03/02/22 02:45 67 18 100 03/02/22 02:45 105/55 L 03/02/22 02:40 67 16 96 03/02/22 02:40 107/53 L 03/02/22 02:57 67 112/54 L 97 03/02/22 02:35 66 16 97 03/02/22 02:35 107/51 L 03/02/22 02:30 67 15 99 03/02/22 02:30 111/53 L 03/02/22 02:25 66 16 96 03/02/22 02:25 134/62 03/02/22 02:20 65 18 97 03/02/22 02:20 102/52 L 03/02/22 02:15 64 13 97 03/02/22 02:15 105/51 L 03/02/22 02:10 66 15 97 03/02/22 02:10 98/50 L 03/02/22 02:05 64 16 97 03/02/22 02:05 106/51 L 03/02/22 02:00 65 15 97 03/02/22 02:00 98/51 L 03/02/22 01:55 65 18 98 03/02/22 01:55 105/50 L 03/02/22 01:50 64 15 97 03/02/22 01:50 94/46 L 03/02/22 01:45 65 14 98 03/02/22 01:45 97/49 L 03/02/22 01:40 66 17 97 03/02/22 01:40 91/55 L 03/02/22 01:35 66 18 98 03/02/22 01:35 100/49 L 03/02/22 01:32 65 14 97 03/02/22 01:32 92/50 L 03/02/22 01:30 65 17 97 03/02/22 01:30 91/47 L 03/02/22 01:25 65 15 97 03/02/22 01:25 83/47 L 03/02/22 01:20 65 15 97 03/02/22 01:20 82/43 L 03/02/22 01:15 66 17 98 03/02/22 01:14 66 14 98 03/02/22 01:14 80/44 L 03/02/22 01:02 92 03/02/22 01:01 86/43 L 03/02/22 00:45 67 16 96 03/02/22 00:45 87/41 L 03/02/22 01:04 36.9 C 03/02/22 00:40 67 16 96 03/02/22 00:32 89/41 L 03/02/22 00:32 68 15 97 03/02/22 00:30 68 16 97 03/02/22 00:20 69 19 96 03/02/22 00:15 68 17 97 03/02/22 00:15 89/46 L 03/02/22 00:10 68 19 97 03/02/22 00:00 68 19 97 03/02/22 00:00 92/47 L 03/01/22 23:50 69 17 97 03/01/22 23:45 94/50 L 03/01/22 23:45 71 18 97 03/01/22 23:40 70 16 97 03/01/22 23:30 68 19 96 03/01/22 23:30 99/47 L 03/01/22 23:20 70 18 97 03/01/22 23:15 97/49 L 03/01/22 23:15 69 17 98 03/01/22 23:10 67 15 96 03/01/22 23:07 96 03/01/22 23:06 93/46 L O2 Del Method O2 Flow Rate 03/02/22 10:15 03/02/22 10:02 03/02/22 10:02 03/02/22 10:00 03/02/22 09:45 03/02/22 09:32 03/02/22 09:32 03/02/22 09:30 03/02/22 09:15 03/02/22 09:02 03/02/22 09:02 03/02/22 09:00 03/02/22 08:51 03/02/22 08:51 03/02/22 08:45 03/02/22 08:33 03/02/22 08:33 03/02/22 08:30 03/02/22 08:15 03/02/22 08:02 03/02/22 08:02 03/02/22 08:00 03/02/22 07:45 03/02/22 07:32 03/02/22 07:32 03/02/22 07:30 03/02/22 07:15 03/02/22 07:02 03/02/22 07:02 03/02/22 07:00 03/02/22 08:00 Nasal Cannula 2 03/02/22 06:30 Nasal Cannula 2 03/02/22 06:00 Nasal Cannula 2 03/02/22 05:30 Nasal Cannula 2 03/02/22 05:00 Nasal Cannula 2 03/02/22 04:30 Nasal Cannula 2 03/02/22 04:00 Nasal Cannula 2 03/02/22 03:32 Nasal Cannula 2 03/02/22 04:33 Nasal Cannula 2 03/02/22 03:25 Nasal Cannula 2 03/02/22 03:00 Nasal Cannula 2 03/02/22 03:00 03/02/22 02:55 03/02/22 02:55 03/02/22 02:50 03/02/22 02:50 03/02/22 02:45 03/02/22 02:45 03/02/22 02:40 03/02/22 02:40 03/02/22 02:57 Nasal Cannula 03/02/22 02:35 03/02/22 02:35 03/02/22 02:30 03/02/22 02:30 03/02/22 02:25 03/02/22 02:25 03/02/22 02:20 03/02/22 02:20 03/02/22 02:15 03/02/22 02:15 03/02/22 02:10 03/02/22 02:10 03/02/22 02:05 03/02/22 02:05 03/02/22 02:00 03/02/22 02:00 03/02/22 01:55 03/02/22 01:55 03/02/22 01:50 03/02/22 01:50 03/02/22 01:45 03/02/22 01:45 03/02/22 01:40 03/02/22 01:40 03/02/22 01:35 03/02/22 01:35 03/02/22 01:32 03/02/22 01:32 03/02/22 01:30 03/02/22 01:30 03/02/22 01:25 03/02/22 01:25 03/02/22 01:20 03/02/22 01:20 03/02/22 01:15 03/02/22 01:14 03/02/22 01:14 03/02/22 01:02 03/02/22 01:01 03/02/22 00:45 03/02/22 00:45 03/02/22 01:04 03/02/22 00:40 03/02/22 00:32 03/02/22 00:32 03/02/22 00:30 03/02/22 00:20 03/02/22 00:15 03/02/22 00:15 03/02/22 00:10 03/02/22 00:00 03/02/22 00:00 03/01/22 23:50 03/01/22 23:45 03/01/22 23:45 03/01/22 23:40 03/01/22 23:30 03/01/22 23:30 03/01/22 23:20 03/01/22 23:15 03/01/22 23:15 03/01/22 23:10 03/01/22 23:07 03/01/22 23:06 Diagnostic Findings Radiographic imaging obtained last night of the left foot shows no acute bony abnormality. Osteopenia is present. Mild soft tissue edema is noted. CT imaging of the left foot was also obtained. There is evidence of cellulitis of the great toe, worst around the MTP joint. There is bony erosion along the dorsal and plantar base of the great toe proximal phalanx. It is suspicious for osteomyelitis. No evidence of fracture. No fluid collection to suggest abscess.
[2022-03-02] MEDS: FAMOTIDINE 20 MG in SYRINGE 3 ML IV SCH ×2 (11:11→20:19)
[2022-03-02] MEDS: MIDODRINE HCL 2.5 MG TAB PO SCH ×3 (11:12→20:16)
[2022-03-02] MEDS: MEROPENEM 500 MG in SYRINGE 0 ML IV SCH ×2 (12:13→18:24)
[2022-03-02] MEDS: DAPTOmycin 400 MG in SYRINGE 0 ML IV SCH (12:13)
--- NOTE | 2022-03-02 16:26 | Billing Data ---
Date of Service March 02, 2022 Coding Level of Care Code 60044 Subseq Hosp Care Lvl 2
[2022-03-02] MEDS: HEPARIN SOD 5,000 UNIT/0.5 ML VIAL SC SCH (20:20)
[2022-03-03] MEDS: MEROPENEM 500 MG in SYRINGE 0 ML IV SCH ×4 (01:58→22:06)
[2022-03-03 04:34] LABS: Basophils # (auto) 0.04 K/uL (0-0.2); Basophils % (auto) 0.3 %; Eosinophils # (auto) 0.33 K/uL (0-0.50); Eosinophils % (auto) 2.4 %; Hematocrit (blood only) 31.9 % (34.1-44.9); Hemoglobin 10.5 g/dl (12.0-16.0); Immature Granulocytes # (auto) 0.07 K/uL (0.00-0.02); Immature Granulocytes % (auto) 0.5 %; Lymphocytes # (auto) 1.31 K/uL (1.2-3.4); Lymphocytes % (auto) 9.5 %; Mean Corpuscular Hgb Conc 32.9 g/dL (32.0-36.0); Mean Corpuscular Volume 97.3 fL (80.0-100.0); Mean Platelet Volume 12.1 fL (9.4-12.3); Monocytes # (auto) 1.16 K/uL (0.24-0.82); Monocytes % (auto) 8.5 %; Neutrophils # (auto) 10.81 K/uL (1.4-6.5); Neutrophils % (auto) 78.8 %; Platelet Count 150 K/uL (130-400); RDW Coefficient of Variation 14.7 % (11.5-14.5); RDW Standard Deviation 52.8 fL (36.4-46.3); Red Blood Count 3.28 M/uL (3.93-5.22); White Blood Count 13.72 K/ul (4.8-10.8)
[2022-03-03 04:57] LABS: Albumin Level 2.9 gm/dl (3.4-5.0); Bilirubin Direct 0.3 mg/dl (0-0.2); Bilirubin,Total 1.7 mg/dl (0.2-1.0); Magnesium 2.2 mg/dl (1.7-2.4); Phosphorus 2.9 mg/dl (2.5-4.9); Total Protein 5.7 gm/dl (6.0-8.3)
[2022-03-03 04:58] LABS: INR 1.1 (0.9-1.1); Partial Thromboplastin Ratio 1.1; Prothrombin Time 11.9 Seconds (9.0-12.0)
--- NOTE | 2022-03-03 06:08 | Electrocardiogram Report ---
Test Reason : Blood Pressure : / mmHG Vent. Rate : 071 BPM Atrial Rate : 070 BPM P-R Int : 132 ms QRS Dur : 088 ms QT Int : 460 ms P-R-T Axes : 000 020 074 degrees QTc Int : 500 ms Poor data quality, interpretation may be adversely affected Normal sinus rhythm Low voltage QRS Cannot rule out Anteroseptal infarct , age undetermined Prolonged QT Abnormal ECG When compared with ECG of 13-APR-2020 13:54, Minimal criteria for Anteroseptal infarct are now Present QT has lengthened Confirmed by Jonny Myers ([id number]) on 03/03/2022 6:07:41 AM Referred By: REFERRED SELF Confirmed By:Jonny Myers
--- NOTE | 2022-03-03 07:21 | Hospitalist Progress Note ---
Date of Service March 03, 2022 Assessment & Plan (1) Septic shock: Plan: Septic shock secondary to diabetic foot ulcer of left foot Patient remained hypotensive after receiving 3 and half liters of normal saline in ED and was started on Levophed Blood pressures improving; was able to be transitioned off Levophed Blood Cultures remain negative after 24 hours. No new wound culture taking; wound culture from 02/21 growing Enterococcus faecalis Continue meropenem and daptomycin Down graded to tele Tylenol prn for fever; 650mg q6 prn (2) Diabetic foot ulcer: Plan: - Previous wound culture from 02/21 grew Enterococcus faecalis - Currently on meropenem and daptomycin - Orthopedics consulted; no plan for procedure acutely, does not feel there is osteomyelitis - CT Foot significant for cellulitis first toe, bony erosion along dorsal and plantar base pf the first proximal phalanx - Plan for OP follow up with Dr. Beard (3) Transaminitis: Plan: Improving transaminitis, likely secondary to septic shock/ hypoperfusion Continue to trend (4) Diabetes: Plan: Hold metformin and dulaglutide; last hemoglobin alc= 6.7 (02/21) Blood sugars have been well controlled with POC glucose between 130-160s (5) Paroxysmal atrial fibrillation: Plan: Continue amiodarone, metoprolol succinate (6) Diabetic peripheral neuropathy associated with type 2 diabetes mellitus: Plan: Hold gabapentin until taking p.o. (7) Dyslipidemia: Plan: Hold atorvastatin until taking p.o. (8) Hypothyroidism: Plan: Continue levothyroxine (9) GERD without esophagitis: Plan: Continue famotidine 20mg daily, pantoprazole (10) Charcot's joint of foot in type 2 diabetes mellitus: Plan: Mangement as per above (11) Gout: Plan: Continue allopurinol (12) Fibromyalgia: Plan: Continue duloxetine, gabapentin Admission and Anticipated Discharge Date Admission Date: March 02, 2022 Supervising Physician Co-Signing Physician Notes I personally examined the patient and verified all porter points of history and exam, discussed case, and agree with decision making with Dr Brand. Feeling much better overall. Still somewhat weak but improving. Still poor appetite but eating more. Vitals noted, in general she is awake and alert pleasant no distress. HEENT normocephalic atraumatic mucous membranes moist. Breathing unlabored no accessory muscle use good effort. Skin without rashes pallor or icterus. Foot dressed, no tracking erythema. Septic shockpresumed source of foot infection. Improving. Continue current antibiotics. Appears to be improving nicely. Appreciate orthopedics input. With no surgical debridement necessary at the timeand her rapid improvementit is reasonable to think that after another day or 2 of IV antibiotics, we may be able to consider p.o. antibiotics, home, close podiatry/wound clinic follow-up as an outpatient. Otherwise as above Subjective 76 year old female with a past medical history of osteomyelitis, diabetic foot ulcer, gout, colon polyps, CAD, diabetic peripheral neuropathy, dyslipidemia, fibromyalgia, foot deformity, hypothyroidism, depression, vitamin B12 deficiency, GERD without esophagitis, neurogenic bladder, diabetes mellitus, recurrent UTI, rectal incontinence, Charcot's joint of foot, hypertension, anemia, paroxysmal atrial fibrillation and psoriatic arthritis. Presented to ED with AMS, fever/chills and left foot ulcer. Hypotensive to 80s systolic. Had a dose of Dalvance ordered by wound care prior to arrival to ED. CT scan suspicious for osteomyelitis. Got 3.5 L of fluid in ED and still was hypotensive, started on Levophed. Started on Daptomycin, Meropenem. Doing well this morning without complaints. She says she is feeling significantly better from the past couple of days. Denies dizziness, lightheadedness, chest pain, dyspnea, foot pain, fever/chills. Review of Systems Review of Systems: As per HPI Physical Exam Physical Exam: Constitutional: well-appearing, no acute distress HEENT: NCAT, no conjunctival injection CV: regular rhythm, no murmur appreciated, extremities well-perfused, no LE edema Resp: CTABL, no wheezes/rales/rhonchi appreciated, no increased work of breathing GI: soft, nondistended, nontender, BS normoactive MSK: no gross deformities appreciated; wound on left foot wrapped-dressing dry/clean Skin: warm, dry, no rash appreciated Neuro: alert, oriented, no focal neurologic deficit appreciated Results & Data Results & Data ([facility]) Vital Signs (Past 12 Hours) Vital Signs Temp Pulse Resp BP Pulse Ox O2 Del Method O2 Flow Rate 03/03/22 07:00 37.1 C 70 15 98 03/03/22 06:32 117/55 L 03/03/22 06:32 37.1 C 67 21 98 03/03/22 06:00 37.2 C 69 16 93 03/03/22 05:42 113/49 L 03/03/22 05:42 37.3 C 71 20 96 03/03/22 05:00 37.5 C 71 18 93 03/03/22 04:32 109/50 L 03/03/22 04:32 37.6 C H 68 15 94 03/03/22 04:00 37.6 C H 69 16 95 03/03/22 03:32 117/49 L 03/03/22 03:32 37.6 C H 70 17 95 03/03/22 03:00 37.7 C H 73 17 95 03/03/22 02:32 118/57 L 03/03/22 02:32 37.7 C H 74 20 95 03/03/22 02:00 37.9 C H 74 18 95 03/03/22 01:32 37.9 C H 72 17 94 03/03/22 01:32 109/46 L 03/03/22 01:00 38.0 C H 71 18 93 03/03/22 00:32 108/47 L 03/03/22 00:32 38.0 C H 69 16 95 03/03/22 00:00 38.0 C H 72 19 94 03/02/22 23:32 38.1 C H 72 18 94 03/02/22 23:32 115/47 L 03/02/22 23:00 38.0 C H 72 19 95 03/02/22 22:32 117/49 L 03/02/22 22:32 38.0 C H 71 18 93 03/02/22 23:35 71 03/02/22 22:00 38.0 C H 72 16 95 03/02/22 21:32 118/49 L 03/02/22 21:32 37.9 C H 70 18 97 03/02/22 21:00 37.8 C H 71 19 97 03/02/22 20:32 106/56 L 03/02/22 20:32 37.8 C H 70 21 96 03/02/22 20:03 113/47 L 03/02/22 20:03 37.9 C H 73 20 92 03/02/22 20:00 37.8 C H 73 27 H 93 03/02/22 19:32 120/54 L 03/02/22 19:32 37.9 C H 87 22 91 03/02/22 20:00 Nasal Cannula 3 Resident Activity Tracking Resident Involvement: Resident Care Provided Care Provided: Adult Hospital Medicine
[2022-03-03] MEDS: FAMOTIDINE 20 MG in SYRINGE 3 ML IV SCH (07:49)
[2022-03-03] MEDS: NOREPINEPHRINE/D5W 4 MG/250 ML PLCT IV SCH (07:49)
[2022-03-03] MEDS: MIDODRINE HCL 2.5 MG TAB PO SCH ×3 (07:49→17:35)
[2022-03-03] MEDS: HEPARIN SOD 5,000 UNIT/0.5 ML VIAL SC SCH ×2 (07:49→20:28)
[2022-03-03] MEDS: ICU Protocol for HYPERglycemia SCH (07:50)
[2022-03-03] MEDS: DAPTOmycin 400 MG in SYRINGE 0 ML IV SCH (09:23)
[2022-03-03] MEDS: LEVOTHYROXINE SODIUM 100 MCG TABLET PO SCH (09:23)
[2022-03-03] MEDS: GABAPENTIN 400 MG CAP PO SCH ×3 (09:23→20:27)
[2022-03-03] MEDS: CYANOCOBALAMIN (B-12) 500 MCG TABLET PO SCH (09:24)
[2022-03-03] MEDS: DULoxetine HCL 30 MG CAP PO SCH (09:24)
[2022-03-03] MEDS: allopurinoL 100 MG TAB PO SCH (09:24)
[2022-03-03] MEDS: FAMOTIDINE 20 MG TAB PO SCH (09:24)
[2022-03-03] MEDS: PANTOprazole 40 MG TAB PO SCH (09:24)
[2022-03-03] MEDS: METOPROLOL SUCC 50MG EXT REL TAB PO SCH ×2 (09:24→20:25)
[2022-03-03] MEDS: AMIODARONE 200 MG TAB PO SCH ×2 (09:24→20:26)
[2022-03-03 09:41] LABS: Creatinine Clr Calc Pharmacy 52.3 ml/min; Est GFR (African American) 67.8 ml/min; Est GFR (Non-African American) 58.5 ml/min
[2022-03-03] MEDS ORDERED: ACETAMINOPHEN 325 MG TAB PO PRN (10:08)
--- NOTE | 2022-03-03 10:59 | Orthopedic Progress Note ---
Date of Service March 03, 2022 Assessment & Plan (1) Chronic ulcer of left foot: Plan: Patient will follow up with Dr. Gong as an outpatient. Definitive appt date/time is pending. Blood Cultures remain negative after 24 hours. No new wound culture taking; wo und culture from 02/21 growing Enterococcus faecalis Continue meropenem and daptomycin PO pain control per medicine service Admission and Anticipated Discharge Date Admission Date: March 02, 2022 Supervising Physician Co-Signing Physician Notes I, Dr. Stephens, saw and examined the patient and discussed the management with my PA. I reviewed my PAs note and agree with the documented findings and the plan of care I developed. Subjective This 76-year-old female seen this morning for follow-up of ulcerations to her left first MTP. Patient was seen in the emergency department a few days ago with fatigue, fever chills and sweats. She states that these have resolved completely. She also has a boot on her right foot due to her Charcot foot. Patient denies chest pain, shortness of breath, fever, chills, sweats, lethargy or numbness or tingling in the left lower extremity. Review of Systems Review of Systems: All systems reviewed & are unremarkable except as noted in Subjective Physical Exam Physical Exam: Left foot: Superficial skin sloughing over the lateral aspect of the foot along the fifth metatarsal. No open wounds or drainage.No TTP. First MTP joint has a large area of callus and 2 separate dry eschars approxi mately 1.5 cm x 1.5 cm with superficial necrotic tissue. Both are firm, nonfluctuant, and nontender. No notable erythema surrounding the first MTP joint. NV intact. Periph pulses are 2+. Results & Data ([facility]) Vital Signs (Past 12 Hours) Vital Signs Temp Pulse Resp BP Pulse Ox O2 Del Method O2 Flow Rate 03/03/22 08:42 Nasal Cannula 2 03/03/22 08:39 37.1 C 74 16 121/51 L 96 Nasal Cannula 2 03/03/22 07:59 70 03/03/22 07:00 37.1 C 70 15 98 03/03/22 06:32 117/55 L 03/03/22 06:32 37.1 C 67 21 98 03/03/22 06:00 37.2 C 69 16 93 03/03/22 05:42 113/49 L 03/03/22 05:42 37.3 C 71 20 96 03/03/22 05:00 37.5 C 71 18 93 03/03/22 04:32 109/50 L 03/03/22 04:32 37.6 C H 68 15 94 03/03/22 04:00 37.6 C H 69 16 95 03/03/22 03:32 117/49 L 03/03/22 03:32 37.6 C H 70 17 95 03/03/22 03:00 37.7 C H 73 17 95 03/03/22 02:32 118/57 L 03/03/22 02:32 37.7 C H 74 20 95 03/03/22 02:00 37.9 C H 74 18 95 03/03/22 01:32 37.9 C H 72 17 94 03/03/22 01:32 109/46 L 03/03/22 01:00 38.0 C H 71 18 93 03/03/22 00:32 108/47 L 03/03/22 00:32 38.0 C H 69 16 95 03/03/22 00:00 38.0 C H 72 19 94 03/02/22 23:32 38.1 C H 72 18 94 03/02/22 23:32 115/47 L 03/02/22 23:00 38.0 C H 72 19 95 03/02/22 23:35 71 Diagnostic Findings Laboratory Results WBC 13.72 K/ul (4.8-10.8) H 03/03/22 04:15 RBC 3.28 M/uL (3.93-5.22) L 03/03/22 04:15 Hgb 10.5 g/dl (12.0-16.0) L 03/03/22 04:15 Hct 31.9 % (34.1-44.9) L 03/03/22 04:15 MCV 97.3 fL (80.0-100.0) 03/03/22 04:15 MCH 32.0 pg (25.0-34.0) 03/03/22 04:15 MCHC 32.9 g/dL (32.0-36.0) 03/03/22 04:15 RDW Std Deviation 52.8 fL (36.4-46.3) H 03/03/22 04:15 RDW Coeff of Kristen 14.7 % (11.5-14.5) H 03/03/22 04:15 Plt Count 150 K/uL (130-400) 03/03/22 04:15 MPV 12.1 fL (9.4-12.3) 03/03/22 04:15 Immature Gran % (Auto) 0.5 % 03/03/22 04:15 Neut % (Auto) 78.8 % 03/03/22 04:15 Lymph % (Auto) 9.5 % 03/03/22 04:15 [place] % (Auto) 8.5 % 03/03/22 04:15 Eos % (Auto) 2.4 % 03/03/22 04:15 Baso % (Auto) 0.3 % 03/03/22 04:15 Neut # (Auto) 10.81 K/uL (1.4-6.5) H 03/03/22 04:15 Lymph # (Auto) 1.31 K/uL (1.2-3.4) 03/03/22 04:15 [place] # (Auto) 1.16 K/uL (0.24-0.82) H 03/03/22 04:15 Eos # (Auto) 0.33 K/uL (0-0.50) 03/03/22 04:15 Baso # (Auto) 0.04 K/uL (0-0.2) 03/03/22 04:15 Immature Gran # (Auto) 0.07 K/uL (0.00-0.02) H 03/03/22 04:15 Absolute Nucleated RBC 0.02 K/uL (0-0) H 03/02/22 04:31 Nucleated RBC % (auto) 0.1 % 03/02/22 04:31 PT 11.9 Seconds (9.0-12.0) 03/03/22 04:15 INR 1.1 (0.9-1.1) 03/03/22 04:15 APTT 30.0 Seconds (21.0-31.0) 03/03/22 04:15 PTT Ratio 1.1 03/03/22 04:15 VBG pH 7.38 (7.36-7.41) 03/01/22 22:13 VBG pCO2 41 mmHg (38-50) 03/01/22 22:13 VBG pO2 37 mmHg 03/01/22 22:13 VBG HCO3 24 mmol/L 03/01/22 22:13 VBG O2 Saturation 67.7 % 03/01/22 22:13 VBG Base Excess -0.8 mEq/L 03/01/22 22:13 Sodium 135 mmol/L (136-145) L 03/02/22 06:59 Potassium 4.1 mmol/L (3.5-5.1) 03/02/22 06:59 Chloride 103 mmol/L (98-107) 03/02/22 06:59 Carbon Dioxide 22 mmol/L (21-32) 03/02/22 06:59 Anion Gap 10 (3-11) 03/02/22 06:59 BUN 31 mg/dl (6-23) H 03/02/22 06:59 Creatinine 0.94 mg/dl (0.6-1.2) D 03/03/22 08:57 Est Cr Clr Drug Dosing 52.3 ml/min 03/03/22 08:57 Est GFR ( Amer) 67.8 ml/min 03/03/22 08:57 Est GFR (Non-Af Amer) 58.5 ml/min 03/03/22 08:57 BUN/Creatinine Ratio 18.8 (10-20) 03/02/22 06:59 Glucose 141 mg/dl (70-99(Fasting)) H 03/02/22 06:59 POC Glucose 133 mg/dl (70-99) H 03/03/22 07:36 Lactate 2.3 mmol/L (0.4-2.0) H* 03/02/22 06:59 Calcium 7.5 mg/dl (8.5-10.1) L 03/02/22 06:59 Phosphorus 2.9 mg/dl (2.5-4.9) D 03/03/22 04:15 Magnesium 2.2 mg/dl (1.7-2.4) 03/03/22 04:15 Total Bilirubin 1.7 mg/dl (0.2-1.0) H 03/03/22 04:15 Direct Bilirubin 0.3 mg/dl (0-0.2) H 03/03/22 04:15 AST 177 U/L (13-39) H 03/03/22 04:15 ALT 214 U/L (7-52) H 03/03/22 04:15 Alkaline Phosphatase 93 U/L (34-104) 03/03/22 04:15 Ammonia 39.0 umol/L (18-72) 03/02/22 06:59 Total Creatine Kinase 87 U/L (26-192) 03/01/22 23:27 Troponin I High Sens 43.2 pg/ml (0-14) H D 03/02/22 06:59 Total Protein 5.7 gm/dl (6.0-8.3) L 03/03/22 04:15 Albumin 2.9 gm/dl (3.4-5.0) L 03/03/22 04:15 Globulin 2.8 gm/dl (2.5-4.0) 03/02/22 06:59 Albumin/Globulin Ratio 1.1 (0.9-2) 03/02/22 06:59 Procalcitonin 112.87 ng/ml (0-0.5) H 03/01/22 22:02 Random Cortisol 16.99 mcg/dl 03/02/22 07:00 Urine Color Yellow 03/01/22 22:12 Urine Appearance Turbid (Clear) A 03/01/22 22:12 Urine pH 5.5 (4.5-7.5) 03/01/22 22:12 Ur Specific [place] 1.012 (1.000-1.030) 03/01/22 22:12 Urine Protein 1+ (Negative) H 03/01/22 22:12 Urine Glucose (UA) Negative (Negative) 03/01/22 22:12 Urine Ketones Negative (Negative) 03/01/22 22:12 Urine Blood Negative (Negative) 03/01/22 22:12 Urine Nitrite Negative (Negative) 03/01/22 22:12 Urine Bilirubin Negative (Negative) 03/01/22 22:12 Urine Urobilinogen Negative (Negative) 03/01/22 22:12 Ur Leukocyte Esterase 2+ (Negative) H 03/01/22 22:12 Urine WBC (Auto) >30 /hpf (0-5) H 03/01/22 22:12 Urine RBC (Auto) 10-30 /hpf (0-4) H 03/01/22 22:12 U Hyaline Cast (Auto) 1-5 /lpf (0-5) 03/01/22 22:12 U Epithel Cells (Auto) >30 /lpf (0-5) H 03/01/22 22:12 Urine Bacteria (Auto) Negative (Negative) 03/01/22 22:12 Ur Renal Epithelial Cell 0-5 /lpf (0-5) 03/01/22 22:12 Urine Yeast Budding (None Prsent) A 03/01/22 22:12 Nasal Screen MRSA (PCR) Negative (Negative) 03/02/22 03:42 SARS-CoV-2, RNA, NAAT NEGATIVE (NEGATIVE) 03/01/22 22:46 Impressions Chest X-Ray 03/01/22 21:52 XR chest 1V portable HISTORY: 76 years-old Female Sepsis acute sepsis COMPARISON: CT abdomen and pelvis of same day TECHNIQUE: AP view of the chest FINDINGS: Cardiomegaly with prior median sternotomy and CABG. Subsegmental bibasilar atelectasis. Pulmonary vascular congestion. There is no pneumothorax, pleural effusion or lobar airspace consolidation. Bilateral shoulder rotator cuff calcific tendinosis. Degenerative changes of the shoulders and spine. IMPRESSION: 1. Cardiomegaly with pulmonary vascular congestion 2. Subsegmental bibasilar atelectasis. ACT 112: Negative or not required by law. The above report was generated using voice recognition software. It may contain grammatical, syntax or spelling errors. Electronically signed by: Alfredito Ruvalcaba M.D. 03/02/2022 7:51 AM Foot X-Ray 03/01/22 22:00 LEFT FOOT 2 VIEWS CLINICAL HISTORY: Left foot ulcer. FINDINGS: AP and lateral views of the left foot are compared to study dated 02/21/2022. The skeletal structures are osteopenic. No acute fracture is seen. There is chronic posttraumatic deformity of the distal tibia and fibula with a buttress plate along the distal fibular cortex. There is a large dorsal calcaneal enthesophyte. No bony erosion or periostitis is identified. Mild osteoarthritic change is seen at the first metatarsophalangeal joint and throughout the tarsometatarsal joints. Soft tissue swelling is present within the first toe with an ulceration suggested at the level of the first MTP. Soft tissue calcifications may represent packing material. IMPRESSION: 1. No acute bony abnormality is evident. 2. Osteopenia with chronic and degenerative changes as above. 3. Soft tissue edema in the first toe with evidence of an ulceration. Clinical correlation will be required. Dictated: 03/02/2022 9:50 AM Transcribed: 03/02/2022 10:20 AM [facility] [id number] Electronically signed by: Yan Ruiz M.D. 03/02/2022 10:[address] 03/01/22 22:00 CT head/brain wo con CLINICAL HISTORY: 76 years-old Female with ams. Acutely altered mental status TECHNIQUE: Multiple axial CT images of the head were obtained without contrast. A dose lowering technique was utilized adhering to the principles of ALARA. COMPARISON: CT cervical spine of same day FINDINGS: No acute intracranial hemorrhage, midline shift, intracranial mass, hydrocephalus, territorial ischemia or abnormal extra-axial collection. Involutional changes. White matter hypodensities suggestive of chronic microvascular ischemic disease. Calcifications of the falx cerebri. The calvarium is intact. Prior bilateral lens repair. The paranasal sinuses, mastoid air cells, and middle ear cavities are clear. IMPRESSION: No acute intracranial abnormality. ACT 112: Negative or not required by law. The above report was generated using voice recognition software. It may contain grammatical, syntax or spelling errors. Electronically signed by: Alfredito Ruvalcaba M.D. 03/02/2022 6:50 AM Abdomen/Pelvis CT 03/01/22 22:41 CT SCAN OF THE ABDOMEN AND PELVIS WITHOUT IV CONTRAST CLINICAL HISTORY: Fall. COMPARISON STUDY: Abdominal CT dated 10/18/2021. TECHNIQUE: CT scan of the abdomen and pelvis is performed from the lung bases to the proximal femora. Images are reviewed in the axial, sagittal, and coronal planes. IV contrast was not administered for this examination. Note that the examination was performed in significantly suboptimal fashion without IV contrast. There is also streak artifact from the arms which could not be elevated above the abdomen as well as motion artifact. A dose lowering technique was utilized adhering to the principles of ALARA. CT DOSE: 2389.30 mGy.cm FINDINGS: Lung bases: The patient is status post midline sternotomy. The heart is enlarged and without pericardial effusion. The coronary arteries are densely calcified. There is a tiny hiatal hernia. Dependent airspace consolidation is seen bilaterally. No large pleural effusion or basilar pneumothorax is identified. Liver: The unenhanced liver is enlarged, measuring 22.7 cm in length. The liver is otherwise normal in contour and attenuation. There is no intrahepatic biliary ductal dilatation. Gallbladder: Gallstones are suggested, with no CT evidence of acute cholecystitis. Spleen: Normal in size and attenuation. Pancreas: The unenhanced pancreas is grossly unremarkable. Adrenal glands: Unremarkable. Kidneys: The unenhanced kidneys demonstrate cortical atrophy and are without hydronephrosis. Renovascular calcifications are seen bilaterally. No definite renal calculi are identified. There is no evidence of contour deforming renal mass lesion. Foci of cortical scarring are seen on the left. Abdominal vasculature: The abdominal aorta is normal in course and caliber noting advanced atherosclerotic calcification. Bowel: There is moderate colonic fecal retention. No bowel obstruction is seen. There is moderate colonic diverticulosis without CT evidence of acute diverticulitis. Duodenal diverticula are incidentally noted. The appendix is well-visualized and normal. Peritoneum: There is no intraperitoneal free air or abdominal ascites. There is a fat-containing umbilical hernia. Lymphadenopathy: None. Pelvic viscera: The bladder is normal as visualized. There are calcified uterine fibroids. No adnexal lesion is seen. Skeletal structures: The skeletal structures are osteopenic. There is moderate to advanced lumbosacral spondylosis. No lytic or blastic lesions are seen. A sacral stimulator device is present in the right gluteal tissues. IMPRESSION: 1. Significantly suboptimal examination without IV contrast. There is also streak and motion artifact. 2. There is no evidence of solid organ injury in the abdomen or pelvis. 3. Dependent consolidation is present in both lung bases. Correlate clinically for evidence of pneumonia/aspiration pneumonitis. 4. Hepatomegaly. 5. Colonic diverticulosis without CT evidence of acute diverticulitis. 6. Cholelithiasis. 7. Additional findings as above. ACT 112: Negative or not required by law. Electronically signed by: Yan Ruiz M.D. 03/02/2022 8:[address] 03/01/22 22:41 CT cervical spine wo con CLINICAL HISTORY: 76 years-old Female with fall. Acute head and neck injury status post fall COMPARISON: Head CT of same day. TECHNIQUE: Multiple axial CT images of the cervical spine were obtained without contrast. A dose lowering technique was utilized adhering to the principles of ALARA. FINDINGS: 3 mm anterolisthesis C6 on C7 is likely on a degenerative basis. Multilevel disc space narrowing is severe at C3-C4 and C5-C6 with degenerative partial bony fusion of the C3-C4 level. Uncovertebral hypertrophy with posterior disc osteophyte complex formations. Straightening of the normal cervical lordosis. No acute fracture or subluxation identified. Severe multilevel facet arthrosis with degenerative partial bony fusion involving numerous facet joints. Multilevel neural foraminal narrowing. Prior median sternotomy. Unremarkable soft tissues. Calcified plaque of the carotid bulbs and proximal cervical segments of the internal carotid arteries. The visualized lung apices appear clear. IMPRESSION: No acute cervical spine fracture identified. ACT 112: Negative or not required by law. The above report was generated using voice recognition software. It may contain grammatical, syntax or spelling errors. Electronically signed by: Alfredito Ruvalcaba M.D. 03/02/2022 7:[address] 03/02/22 00:31 CT SCAN OF THE LEFT FOOT WITHOUT IV CONTRAST CLINICAL HISTORY: Left first toe pain/infection. COMPARISON STUDY: Radiographs of the left foot dated 03/01/2022. TECHNIQUE: CT scan of the left foot is performed from the ankle joint to the base of the foot. Images are reviewed in the axial, sagittal, and coronal planes. IV contrast was not administered for this examination. A dose lowering technique was utilized adhering to the principles of ALARA. CT DOSE: 223.44 mGy.cm FINDINGS: The skeletal structures are osteopenic. No acute fracture is seen. Chronic posttraumatic deformity is noted in the distal tibia and fibula with postsurgical change in the lateral malleolus. The ankle mortise appears intact, noting degenerative change at the tibiotalar articulation. A large dorsal heel spur is noted. Erosive change is suggested involving the dorsal and plantar base of the first proximal phalanx. There is also mild periostitis along the plantar aspect of the first proximal phalanx. Significant soft tissue edema is present around the first metatarsophalangeal joint with dermal thickening and evidence of a wound. No organized fluid collection is seen on this unenhanced examination. No additional foci of bony erosion are suggested. There is marked fatty atrophy of the regional musculature. Mild degenerative change is seen throughout the foot. The Achilles tendon is intact as imaged. IMPRESSION: 1. There is evidence of a wound/cellulitis of the first toe, greatest at the level of the metatarsophalangeal joint. 2. There is bony erosion suggested along the dorsal and plantar base of the first proximal phalanx. The appearance is suspicious for osteomyelitis and clinical correlation will be required. 3. No acute fracture is seen. 4. There is no organized fluid collection to suggest abscess. ACT 112: Negative or not required by law. Electronically signed by: Yan Ruiz M.D. 03/02/2022 9:12 AM Venous Doppler Study 03/02/22 00:31 LEFT LOWER EXTREMITY VENOUS DOPPLER HISTORY: Acute pain and swelling of the left lower leg swollen hot red leg COMPARISON STUDY: None. FINDINGS: There is normal compressibility, flow, and augmentation within the left lower extremity deep venous system. Subcutaneous edema. IMPRESSION: No DVT within the left lower extremity. ACT 112: Negative or not required by law. Electronically signed by: Alfredito Ruvalcaba M.D. 03/02/2022 6:35 AM
--- NOTE | 2022-03-03 19:24 | Billing Data ---
Date of Service March 03, 2022 Coding Level of Care Code 24382 Subseq Hosp Care Lvl 3
[2022-03-03] MEDS: MIRABEGRON ER 25 MG TAB PO SCH (20:25)
[2022-03-03] MEDS: MAGNESIUM OXIDE 400 MG TAB PO SCH (20:26)
[2022-03-03] MEDS: valACYclovir HCL 500 MG TABLET PO SCH (20:26)
[2022-03-03] MEDS: CALCIUM 600MG + VIT D 400 IU TAB PO SCH (20:26)
[2022-03-03] MEDS: MULTIVITAMIN TAB PO SCH (20:27)
[2022-03-03] MEDS ORDERED: NON-FORMULARY MEDICATION (Potassium 99 mg Tablet) PO SCH (21:00)
[2022-03-03] MEDS ORDERED: ATORVASTATIN 40 MG TAB PO SCH (21:00)
[2022-03-04] MEDS: LEVOTHYROXINE SODIUM 100 MCG TABLET PO SCH (05:19)
[2022-03-04] MEDS: MEROPENEM 500 MG in SYRINGE 0 ML IV SCH ×4 (05:20→22:07)
[2022-03-04 06:23] LABS: Basophils # (auto) 0.03 K/uL (0-0.2); Basophils % (auto) 0.4 %; Eosinophils # (auto) 0.39 K/uL (0-0.50); Eosinophils % (auto) 4.6 %; Hematocrit (blood only) 32.9 % (34.1-44.9); Hemoglobin 10.9 g/dl (12.0-16.0); Immature Granulocytes # (auto) 0.08 K/uL (0.00-0.02); Immature Granulocytes % (auto) 0.9 %; Lymphocytes # (auto) 1.33 K/uL (1.2-3.4); Lymphocytes % (auto) 15.6 %; Mean Corpuscular Hemoglobin 32.6 pg (25.0-34.0); Mean Corpuscular Hgb Conc 33.1 g/dL (32.0-36.0); Mean Corpuscular Volume 98.5 fL (80.0-100.0); Mean Platelet Volume 11.9 fL (9.4-12.3); Monocytes # (auto) 0.86 K/uL (0.24-0.82); Monocytes % (auto) 10.1 %; Neutrophils # (auto) 5.83 K/uL (1.4-6.5); Neutrophils % (auto) 68.4 %; Platelet Count 155 K/uL (130-400); RDW Coefficient of Variation 14.5 % (11.5-14.5); RDW Standard Deviation 52.1 fL (36.4-46.3); Red Blood Count 3.34 M/uL (3.93-5.22); White Blood Count 8.52 K/ul (4.8-10.8)
[2022-03-04 06:34] LABS: Albumin Globulin Ratio 1.1 (0.9-2); Albumin Level 3.1 gm/dl (3.4-5.0); BUN Creatinine Ratio 17.3 (10-20); Bilirubin Direct 0.2 mg/dl (0-0.2); Bilirubin,Total 1.3 mg/dl (0.2-1.0); Calcium 8.2 mg/dl (8.5-10.1); Est GFR (African American) 81.2 ml/min; Est GFR (Non-African American) 70.1 ml/min; Globulin 2.9 gm/dl (2.5-4.0); Magnesium 1.9 mg/dl (1.7-2.4); Phosphorus 2.8 mg/dl (2.5-4.9); Potassium 3.9 mmol/L (3.5-5.1)
[2022-03-04 06:43] LABS: INR 1.1 (0.9-1.1); Prothrombin Time 11.3 Seconds (9.0-12.0)
--- NOTE | 2022-03-04 07:49 | Hospitalist Progress Note ---
Date of Service March 04, 2022 Assessment & Plan (1) Septic shock: Plan: Ms. Andrews is a 76 y/o female with a PMHX of osteomyelitis, diabetic foot ulcer, gout, colon polyps, CAD, diabetic peripheral neuropathy, dyslipidemia, fibromyalgia, foot deformity, hypothyroidism, depression, vitamin B12 deficiency, GERD without esophagitis, neurogenic bladder, diabetes mellitus, recurrent UTI, rectal incontinence, Charcot's joint of foot, hypertension, anemia, paroxysmal atrial fibrillation and psoriatic arthritis who presented due to AMS, confusion, fevers, chills, and left foot ulcer that led to septic shock requiring BP support in the ICU since downgraded and now clinically improving with antibiotics and supportive care. #Septic shock#Diabetic foot ulcer Septic shock secondary to diabetic foot ulcer of left foot unresponsive to fluids. Required pressures to maintain acceptable MAPs. BP improved and she was taken off of pressors. She has since been downgraded and is doing well. Patient will require IV abx and will likely need SNF. Will reach out to CM Blood Cultures negative x48hr. Wound culture from 02/21 growing Enterococcus faecalis [] meropenem and daptomycin - abx started 03/02 - day 3 [] Tylenol prn for fever; 650mg q6 prn [] Orthopedics consulted; no plan for procedure acutely, does not feel there is osteomyelitis [] CT Foot significant for cellulitis first toe, bony erosion along dorsal and plantar base pf the first proximal phalanx [] Plan for OP follow up with Dr. Beard [] reach out to CM #Transaminitis - improving Improving transaminitis, likely secondary to septic shock/ hypoperfusion. Contin ue to trend [] AM CMP #Diabetes with neuropathy Hold metformin and dulaglutide; last hemoglobin alc= 6.7 (02/21). Blood sugars have been well controlled with POC glucose between 130-160s [] restarted home gabapentin #A fib Continue amiodarone, metoprolol succinate #Dyslipidemia Restarted home med - atorvastatin 80mg #Hypothyroidism Continue levothyroxine #GERD continue home famotidine, pantoprazole #Gout continue home allopurinol #Fibromyalgia Continue duloxetine, gabapentin Code: Full FENGI: DM2 Dispo: med surg DVT ppx: heparin (2) Diabetic foot ulcer: (3) Transaminitis: (4) Diabetes: (5) Paroxysmal atrial fibrillation: (6) Diabetic peripheral neuropathy associated with type 2 diabetes mellitus: (7) Dyslipidemia: (8) Hypothyroidism: (9) GERD without esophagitis: (10) Charcot's joint of foot in type 2 diabetes mellitus: (11) Gout: Plan: (12) Fibromyalgia: Admission and Anticipated Discharge Date Admission Date: March 02, 2022 Supervising Physician Co-Signing Physician Notes The patient was seen and examined by me. Case discussed with resident physician. Agree with assessment and plan. Left foot CT scan reveals evidence of bony erosions suspicious for osteomyelitis although the orthopedic consult opinion differs. She currently is on meropenem and daptomycin. Lungs clear to auscultation percussion. Cardiac rhythm regular with normal S1 and S2. Subjective Patient notes that she is doing much better today. She feels greatly improved. The patient denies any pain, f/c/CP. Review of Systems Review of Systems: As per HPI Physical Exam Physical Exam: Constitutional: well-appearing, no acute distress HEENT: NCAT, no conjunctival injection CV: regular rhythm, no murmur appreciated, extremities well-perfused, no LE edema Resp: CTABL, no wheezes/rales/rhonchi appreciated, no increased work of breathing GI: soft, nondistended, MSK: no gross deformities appreciated; wound on left foot wrapped-dressing dry/clean/intact - no strikethrough Skin: warm, dry, no rash appreciated Neuro: alert, oriented, no focal neurologic deficit appreciated Results & Data Results & Data ([facility]) Vital Signs (Past 12 Hours) Vital Signs Temp Pulse Pulse Resp BP Pulse Ox O2 Del Method 03/04/22 01:54 64 03/04/22 03:37 Room Air 03/04/22 02:50 36.5 C 61 20 119/61 97 Room Air 03/04/22 00:15 93 Nasal Cannula 03/04/22 00:10 36.8 C 67 16 120/54 L 90 Room Air 03/04/22 00:09 71 O2 Flow Rate 03/04/22 01:54 03/04/22 03:37 03/04/22 02:50 03/04/22 00:15 2 03/04/22 00:10 03/04/22 00:09 Laboratory Results 03/04/22 03/04/22 03/04/22 Range/Units 05:30 05:30 05:30 WBC 8.52 (4.8-10.8) K/ul RBC 3.34 L (3.93-5.22) M/uL Hgb 10.9 L (12.0-16.0) g/dl Hct 32.9 L (34.1-44.9) % MCV 98.5 (80.0-100.0) fL MCH 32.6 (25.0-34.0) pg MCHC 33.1 (32.0-36.0) g/dL RDW Std Deviation 52.1 H (36.4-46.3) fL RDW Coeff of Kristen 14.5 (11.5-14.5) % Plt Count 155 (130-400) K/uL MPV 11.9 (9.4-12.3) fL Immature Gran % (Auto) 0.9 % Neut % (Auto) 68.4 % Lymph % (Auto) 15.6 % [place] % (Auto) 10.1 % Eos % (Auto) 4.6 % Baso % (Auto) 0.4 % Neut # (Auto) 5.83 (1.4-6.5) K/uL Lymph # (Auto) 1.33 (1.2-3.4) K/uL [place] # (Auto) 0.86 H (0.24-0.82) K/uL Eos # (Auto) 0.39 (0-0.50) K/uL Baso # (Auto) 0.03 (0-0.2) K/uL Immature Gran # (Auto) 0.08 H (0.00-0.02) K/uL PT 11.3 (9.0-12.0) Seconds INR 1.1 (0.9-1.1) Sodium 139 (136-145) mmol/L Potassium 3.9 (3.5-5.1) mmol/L Chloride 104 (98-107) mmol/L Carbon Dioxide 29 (21-32) mmol/L Anion Gap 6 (3-11) BUN 14 (6-23) mg/dl Creatinine 0.81 (0.6-1.2) mg/dl Est Cr Clr Drug Dosing 60.0 ml/min Est GFR ( Amer) 81.2 ml/min Est GFR (Non-Af Amer) 70.1 ml/min BUN/Creatinine Ratio 17.3 (10-20) Glucose 110 H (70-99(Fasting)) mg/dl POC Glucose (70-99) mg/dl Calcium 8.2 L (8.5-10.1) mg/dl Phosphorus 2.8 (2.5-4.9) mg/dl Magnesium 1.9 (1.7-2.4) mg/dl Total Bilirubin 1.3 H (0.2-1.0) mg/dl Direct Bilirubin 0.2 (0-0.2) mg/dl AST 88 H (13-39) U/L ALT 152 H (7-52) U/L Alkaline Phosphatase 98 (34-104) U/L Total Protein 6.0 (6.0-8.3) gm/dl Albumin 3.1 L (3.4-5.0) gm/dl Globulin 2.9 (2.5-4.0) gm/dl Albumin/Globulin Ratio 1.1 (0.9-2) 03/03/22 03/03/22 Range/Units 16:29 08:57 WBC (4.8-10.8) K/ul RBC (3.93-5.22) M/uL Hgb (12.0-16.0) g/dl Hct (34.1-44.9) % MCV (80.0-100.0) fL MCH (25.0-34.0) pg MCHC (32.0-36.0) g/dL RDW Std Deviation (36.4-46.3) fL RDW Coeff of Kristen (11.5-14.5) % Plt Count (130-400) K/uL MPV (9.4-12.3) fL Immature Gran % (Auto) % Neut % (Auto) % Lymph % (Auto) % [place] % (Auto) % Eos % (Auto) % Baso % (Auto) % Neut # (Auto) (1.4-6.5) K/uL Lymph # (Auto) (1.2-3.4) K/uL [place] # (Auto) (0.24-0.82) K/uL Eos # (Auto) (0-0.50) K/uL Baso # (Auto) (0-0.2) K/uL Immature Gran # (Auto) (0.00-0.02) K/uL PT (9.0-12.0) Seconds INR (0.9-1.1) Sodium (136-145) mmol/L Potassium (3.5-5.1) mmol/L Chloride (98-107) mmol/L Carbon Dioxide (21-32) mmol/L Anion Gap (3-11) BUN (6-23) mg/dl Creatinine 0.94 D (0.6-1.2) mg/dl Est Cr Clr Drug Dosing 52.3 ml/min Est GFR ( Amer) 67.8 ml/min Est GFR (Non-Af Amer) 58.5 ml/min BUN/Creatinine Ratio (10-20) Glucose (70-99(Fasting)) mg/dl POC Glucose 106 H (70-99) mg/dl Calcium (8.5-10.1) mg/dl Phosphorus (2.5-4.9) mg/dl Magnesium (1.7-2.4) mg/dl Total Bilirubin (0.2-1.0) mg/dl Direct Bilirubin (0-0.2) mg/dl AST (13-39) U/L ALT (7-52) U/L Alkaline Phosphatase (34-104) U/L Total Protein (6.0-8.3) gm/dl Albumin (3.4-5.0) gm/dl Globulin (2.5-4.0) gm/dl Albumin/Globulin Ratio (0.9-2) Resident Activity Tracking Resident Involvement: Resident Care Provided Care Provided: [facility]
--- NOTE | 2022-03-04 08:26 | Orthopedic Progress Note ---
Date of Service March 04, 2022 Assessment & Plan (1) Chronic ulcer of left foot: Plan: Patient is improving. Patient will follow up with Dr. Gong as an outpatient. Definitive appt date/time is pending discharge. Blood Cultures remain negative. No new wound culture taking; wound culture from 02/21 growing Enterococcus faecalis Continue meropenem and daptomycin Continue PO pain control Continue care per medicine service Admission and Anticipated Discharge Date Admission Date: March 02, 2022 Subjective Feeling better with the foot and overall. Physical Exam Physical Exam: General: Well-developed, well-nourished, elderly female, in no acute distress. Laying in bed. Alert and oriented. Conversive. Mentating normally. Skin: Warm and dry with good turgor. Lower extremities have equal warmth. No significant erythema present on either lower leg. She does have bandages present on the medial and lateral aspect of her left foot. There is also a bandage present on the right heel. Upon removal, right heel has no open wound. There are no areas of ulceration or drainage on the right foot. There is a callous centrally in the plantar aspect of the right foot, with no evidence of infection. Left foot evaluation reveals some superficial scabbing present over the lateral aspect of the foot along the fifth metatarsal. No open wounds. There is nothing draining. Area is nonfluctuant and nontender to touch. First MTP joint has a large area of callus and 2 separate dry eschars approximately dime size. These are firm, nonfluctuant, and nontender. Minimal erythema surrounding the first MTP joint. No current lymphangitis on the foot and no edema. Previous ankle scars are stable and have no indication of infection. Neurologic: Gross sensation is intact across both lower extremities down to the knees. She has decreasing peripheral sensation on the shins and absence of sensation on her feet. Peripheral pulses are 1+. Capillary refill is equal for each of the digits. Results & Data ([facility]) Vital Signs (Past 12 Hours) Vital Signs Temp Pulse Pulse Resp BP Pulse Ox O2 Del Method 03/04/22 01:54 64 03/04/22 03:37 Room Air 03/04/22 02:50 36.5 C 61 20 119/61 97 Room Air 03/04/22 00:15 93 Nasal Cannula 03/04/22 00:10 36.8 C 67 16 120/54 L 90 Room Air 03/04/22 00:09 71 O2 Flow Rate 03/04/22 01:54 03/04/22 03:37 03/04/22 02:50 03/04/22 00:15 2 03/04/22 00:10 03/04/22 00:09 Laboratory Results Laboratory Results WBC 8.52 K/ul (4.8-10.8) 03/04/22 05:30 RBC 3.34 M/uL (3.93-5.22) L 03/04/22 05:30 Hgb 10.9 g/dl (12.0-16.0) L 03/04/22 05:30 Hct 32.9 % (34.1-44.9) L 03/04/22 05:30 MCV 98.5 fL (80.0-100.0) 03/04/22 05:30 MCH 32.6 pg (25.0-34.0) 03/04/22 05:30 MCHC 33.1 g/dL (32.0-36.0) 03/04/22 05:30 RDW Std Deviation 52.1 fL (36.4-46.3) H 03/04/22 05:30 RDW Coeff of Kristen 14.5 % (11.5-14.5) 03/04/22 05:30 Plt Count 155 K/uL (130-400) 03/04/22 05:30 MPV 11.9 fL (9.4-12.3) 03/04/22 05:30 Immature Gran % (Auto) 0.9 % 03/04/22 05:30 Neut % (Auto) 68.4 % 03/04/22 05:30 Lymph % (Auto) 15.6 % 03/04/22 05:30 [place] % (Auto) 10.1 % 03/04/22 05:30 Eos % (Auto) 4.6 % 03/04/22 05:30 Baso % (Auto) 0.4 % 03/04/22 05:30 Neut # (Auto) 5.83 K/uL (1.4-6.5) 03/04/22 05:30 Lymph # (Auto) 1.33 K/uL (1.2-3.4) 03/04/22 05:30 [place] # (Auto) 0.86 K/uL (0.24-0.82) H 03/04/22 05:30 Eos # (Auto) 0.39 K/uL (0-0.50) 03/04/22 05:30 Baso # (Auto) 0.03 K/uL (0-0.2) 03/04/22 05:30 Immature Gran # (Auto) 0.08 K/uL (0.00-0.02) H 03/04/22 05:30 Absolute Nucleated RBC 0.02 K/uL (0-0) H 03/02/22 04:31 Nucleated RBC % (auto) 0.1 % 03/02/22 04:31 PT 11.3 Seconds (9.0-12.0) 03/04/22 05:30 INR 1.1 (0.9-1.1) 03/04/22 05:30 APTT 30.0 Seconds (21.0-31.0) 03/03/22 04:15 PTT Ratio 1.1 03/03/22 04:15 VBG pH 7.38 (7.36-7.41) 03/01/22 22:13 VBG pCO2 41 mmHg (38-50) 03/01/22 22:13 VBG pO2 37 mmHg 03/01/22 22:13 VBG HCO3 24 mmol/L 03/01/22 22:13 VBG O2 Saturation 67.7 % 03/01/22 22:13 VBG Base Excess -0.8 mEq/L 03/01/22 22:13 Sodium 139 mmol/L (136-145) 03/04/22 05:30 Potassium 3.9 mmol/L (3.5-5.1) 03/04/22 05:30 Chloride 104 mmol/L (98-107) 03/04/22 05:30 Carbon Dioxide 29 mmol/L (21-32) 03/04/22 05:30 Anion Gap 6 (3-11) 03/04/22 05:30 BUN 14 mg/dl (6-23) 03/04/22 05:30 Creatinine 0.81 mg/dl (0.6-1.2) 03/04/22 05:30 Est Cr Clr Drug Dosing 60.0 ml/min 03/04/22 05:30 Est GFR ( Amer) 81.2 ml/min 03/04/22 05:30 Est GFR (Non-Af Amer) 70.1 ml/min 03/04/22 05:30 BUN/Creatinine Ratio 17.3 (10-20) 03/04/22 05:30 Glucose 110 mg/dl (70-99(Fasting)) H 03/04/22 05:30 POC Glucose 118 mg/dl (70-99) H 03/04/22 08:14 Lactate 2.3 mmol/L (0.4-2.0) H* 03/02/22 06:59 Calcium 8.2 mg/dl (8.5-10.1) L 03/04/22 05:30 Phosphorus 2.8 mg/dl (2.5-4.9) 03/04/22 05:30 Magnesium 1.9 mg/dl (1.7-2.4) 03/04/22 05:30 Total Bilirubin 1.3 mg/dl (0.2-1.0) H 03/04/22 05:30 Direct Bilirubin 0.2 mg/dl (0-0.2) 03/04/22 05:30 AST 88 U/L (13-39) H 03/04/22 05:30 ALT 152 U/L (7-52) H 03/04/22 05:30 Alkaline Phosphatase 98 U/L (34-104) 03/04/22 05:30 Ammonia 39.0 umol/L (18-72) 03/02/22 06:59 Total Creatine Kinase 87 U/L (26-192) 03/01/22 23:27 Troponin I High Sens 43.2 pg/ml (0-14) H D 03/02/22 06:59 Total Protein 6.0 gm/dl (6.0-8.3) 03/04/22 05:30 Albumin 3.1 gm/dl (3.4-5.0) L 03/04/22 05:30 Globulin 2.9 gm/dl (2.5-4.0) 03/04/22 05:30 Albumin/Globulin Ratio 1.1 (0.9-2) 03/04/22 05:30 Procalcitonin 112.87 ng/ml (0-0.5) H 03/01/22 22:02 Random Cortisol 16.99 mcg/dl 03/02/22 07:00 Urine Color Yellow 03/01/22 22:12 Urine Appearance Turbid (Clear) A 03/01/22 22:12 Urine pH 5.5 (4.5-7.5) 03/01/22 22:12 Ur Specific [place] 1.012 (1.000-1.030) 03/01/22 22:12 Urine Protein 1+ (Negative) H 03/01/22 22:12 Urine Glucose (UA) Negative (Negative) 03/01/22 22:12 Urine Ketones Negative (Negative) 03/01/22 22:12 Urine Blood Negative (Negative) 03/01/22 22:12 Urine Nitrite Negative (Negative) 03/01/22 22:12 Urine Bilirubin Negative (Negative) 03/01/22 22:12 Urine Urobilinogen Negative (Negative) 03/01/22 22:12 Ur Leukocyte Esterase 2+ (Negative) H 03/01/22 22:12 Urine WBC (Auto) >30 /hpf (0-5) H 03/01/22 22:12 Urine RBC (Auto) 10-30 /hpf (0-4) H 03/01/22 22:12 U Hyaline Cast (Auto) 1-5 /lpf (0-5) 03/01/22 22:12 U Epithel Cells (Auto) >30 /lpf (0-5) H 03/01/22 22:12 Urine Bacteria (Auto) Negative (Negative) 03/01/22 22:12 Ur Renal Epithelial Cell 0-5 /lpf (0-5) 03/01/22 22:12 Urine Yeast Budding (None Prsent) A 03/01/22 22:12 Nasal Screen MRSA (PCR) Negative (Negative) 03/02/22 03:42 SARS-CoV-2, RNA, NAAT NEGATIVE (NEGATIVE) 03/01/22 22:46 Impressions Chest X-Ray 03/01/22 21:52 XR chest 1V portable HISTORY: 76 years-old Female Sepsis acute sepsis COMPARISON: CT abdomen and pelvis of same day TECHNIQUE: AP view of the chest FINDINGS: Cardiomegaly with prior median sternotomy and CABG. Subsegmental bibasilar atelectasis. Pulmonary vascular congestion. There is no pneumothorax, pleural effusion or lobar airspace consolidation. Bilateral shoulder rotator cuff calcific tendinosis. Degenerative changes of the shoulders and spine. IMPRESSION: 1. Cardiomegaly with pulmonary vascular congestion 2. Subsegmental bibasilar atelectasis. [id number] 112: Negative or not required by law. The above report was generated using voice recognition software. It may contain grammatical, syntax or spelling errors. Electronically signed by: Alfredito Ruvalcaba M.D. 03/02/2022 7:51 AM Foot X-Ray 03/01/22 22:00 LEFT FOOT 2 VIEWS CLINICAL HISTORY: Left foot ulcer. FINDINGS: AP and lateral views of the left foot are compared to study dated 04/23/2021. The skeletal structures are osteopenic. No acute fracture is seen. There is chronic posttraumatic deformity of the distal tibia and fibula with a buttress plate along the distal fibular cortex. There is a large dorsal calcaneal enthesophyte. No bony erosion or periostitis is identified. Mild osteoarthritic change is seen at the first metatarsophalangeal joint and throughout the tarsometatarsal joints. Soft tissue swelling is present within the first toe with an ulceration suggested at the level of the first MTP. Soft tissue calcifications may represent packing material. IMPRESSION: 1. No acute bony abnormality is evident. 2. Osteopenia with chronic and degenerative changes as above. 3. Soft tissue edema in the first toe with evidence of an ulceration. Clinical correlation will be required. Dictated: 03/02/2022 9:50 AM Transcribed: 03/02/2022 10:20 AM [place] [id number] [facility] Electronically signed by: Yan Ruiz M.D. 03/02/2022 10:[address] 03/01/22 22:00 CT head/brain wo con CLINICAL HISTORY: 76 years-old Female with ams. Acutely altered mental status TECHNIQUE: Multiple axial CT images of the head were obtained without contrast. A dose lowering technique was utilized adhering to the principles of ALARA. COMPARISON: CT cervical spine of same day FINDINGS: No acute intracranial hemorrhage, midline shift, intracranial mass, hydrocephalus, territorial ischemia or abnormal extra-axial collection. Involutional changes. White matter hypodensities suggestive of chronic microvascular ischemic disease. Calcifications of the falx cerebri. The calvarium is intact. Prior bilateral lens repair. The paranasal sinuses, mastoid air cells, and middle ear cavities are clear. IMPRESSION: No acute intracranial abnormality. ACT 112: Negative or not required by law. The above report was generated using voice recognition software. It may contain grammatical, syntax or spelling errors. Electronically signed by: Alfredito Ruvalcaba M.D. 03/02/2022 6:50 AM Abdomen/Pelvis CT 03/01/22 22:41 CT SCAN OF THE ABDOMEN AND PELVIS WITHOUT IV CONTRAST CLINICAL HISTORY: Fall. COMPARISON STUDY: Abdominal CT dated 10/18/2021. TECHNIQUE: CT scan of the abdomen and pelvis is performed from the lung bases to the proximal femora. Images are reviewed in the axial, sagittal, and coronal planes. IV contrast was not administered for this examination. Note that the examination was performed in significantly suboptimal fashion without IV contrast. There is also streak artifact from the arms which could not be elevated above the abdomen as well as motion artifact. A dose lowering technique was utilized adhering to the principles of ALARA. CT DOSE: 2389.30 mGy.cm FINDINGS: Lung bases: The patient is status post midline sternotomy. The heart is enlarged and without pericardial effusion. The coronary arteries are densely calcified. There is a tiny hiatal hernia. Dependent airspace consolidation is seen bilaterally. No large pleural effusion or basilar pneumothorax is identified. Liver: The unenhanced liver is enlarged, measuring 22.7 cm in length. The liver is otherwise normal in contour and attenuation. There is no intrahepatic biliary ductal dilatation. Gallbladder: Gallstones are suggested, with no CT evidence of acute cholecystitis. Spleen: Normal in size and attenuation. Pancreas: The unenhanced pancreas is grossly unremarkable. Adrenal glands: Unremarkable. Kidneys: The unenhanced kidneys demonstrate cortical atrophy and are without hydronephrosis. Renovascular calcifications are seen bilaterally. No definite renal calculi are identified. There is no evidence of contour deforming renal mass lesion. Foci of cortical scarring are seen on the left. Abdominal vasculature: The abdominal aorta is normal in course and caliber noting advanced atherosclerotic calcification. Bowel: There is moderate colonic fecal retention. No bowel obstruction is seen. There is moderate colonic diverticulosis without CT evidence of acute diverticulitis. Duodenal diverticula are incidentally noted. The appendix is well-visualized and normal. Peritoneum: There is no intraperitoneal free air or abdominal ascites. There is a fat-containing umbilical hernia. Lymphadenopathy: None. Pelvic viscera: The bladder is normal as visualized. There are calcified uterine fibroids. No adnexal lesion is seen. Skeletal structures: The skeletal structures are osteopenic. There is moderate to advanced lumbosacral spondylosis. No lytic or blastic lesions are seen. A sacral stimulator device is present in the right gluteal tissues. IMPRESSION: 1. Significantly suboptimal examination without IV contrast. There is also streak and motion artifact. 2. There is no evidence of solid organ injury in the abdomen or pelvis. 3. Dependent consolidation is present in both lung bases. Correlate clinically for evidence of pneumonia/aspiration pneumonitis. 4. Hepatomegaly. 5. Colonic diverticulosis without CT evidence of acute diverticulitis. 6. Cholelithiasis. 7. Additional findings as above. ACT 112: Negative or not required by law. Electronically signed by: Yan Ruiz M.D. 03/02/2022 8:[address] 03/01/22 22:41 CT cervical spine wo con CLINICAL HISTORY: 76 years-old Female with fall. Acute head and neck injury status post fall COMPARISON: Head CT of same day. TECHNIQUE: Multiple axial CT images of the cervical spine were obtained without contrast. A dose lowering technique was utilized adhering to the principles of ALARA. FINDINGS: 3 mm anterolisthesis C6 on C7 is likely on a degenerative basis. Multilevel disc space narrowing is severe at C3-C4 and C5-C6 with degenerative partial bony fusion of the C3-C4 level. Uncovertebral hypertrophy with posterior disc osteophyte complex formations. Straightening of the normal cervical lordosis. No acute fracture or subluxation identified. Severe multilevel facet arthrosis with degenerative partial bony fusion involving numerous facet joints. Multilevel neural foraminal narrowing. Prior median sternotomy. Unremarkable soft tissues. Calcified plaque of the carotid bulbs and proximal cervical segments of the internal carotid arteries. The visualized lung apices appear clear. IMPRESSION: No acute cervical spine fracture identified. ACT 112: Negative or not required by law. The above report was generated using voice recognition software. It may contain grammatical, syntax or spelling errors. Electronically signed by: Alfredito Ruvalcaba M.D. 03/02/2022 7:[address] 03/02/22 00:31 CT SCAN OF THE LEFT FOOT WITHOUT IV CONTRAST CLINICAL HISTORY: Left first toe pain/infection. COMPARISON STUDY: Radiographs of the left foot dated 03/01/2022. TECHNIQUE: CT scan of the left foot is performed from the ankle joint to the base of the foot. Images are reviewed in the axial, sagittal, and coronal planes. IV contrast was not administered for this examination. A dose lowering technique was utilized adhering to the principles of ALARA. CT DOSE: 223.44 mGy.cm FINDINGS: The skeletal structures are osteopenic. No acute fracture is seen. Chronic posttraumatic deformity is noted in the distal tibia and fibula with postsurgical change in the lateral malleolus. The ankle mortise appears intact, noting degenerative change at the tibiotalar articulation. A large dorsal heel spur is noted. Erosive change is suggested involving the dorsal and plantar base of the first proximal phalanx. There is also mild periostitis along the plantar aspect of the first proximal phalanx. Significant soft tissue edema is present around the first metatarsophalangeal joint with dermal thickening and evidence of a wound. No organized fluid collection is seen on this unenhanced examination. No additional foci of bony erosion are suggested. There is marked fatty atrophy of the regional musculature. Mild degenerative change is seen throughout the foot. The Achilles tendon is intact as imaged. IMPRESSION: 1. There is evidence of a wound/cellulitis of the first toe, greatest at the level of the metatarsophalangeal joint. 2. There is bony erosion suggested along the dorsal and plantar base of the first proximal phalanx. The appearance is suspicious for osteomyelitis and clinical correlation will be required. 3. No acute fracture is seen. 4. There is no organized fluid collection to suggest abscess. ACT 112: Negative or not required by law. Electronically signed by: Yan Ruiz M.D. 03/02/2022 9:12 AM Venous Doppler Study 03/02/22 00:31 LEFT LOWER EXTREMITY VENOUS DOPPLER HISTORY: Acute pain and swelling of the left lower leg swollen hot red leg COMPARISON STUDY: None. FINDINGS: There is normal compressibility, flow, and augmentation within the left lower extremity deep venous system. Subcutaneous edema. IMPRESSION: No DVT within the left lower extremity. ACT 112: Negative or not required by law. Electronically signed by: Alfredito Ruvalcaba M.D. 03/02/2022 6:35 AM
[2022-03-04] MEDS: PANTOprazole 40 MG TAB PO SCH (09:16)
[2022-03-04] MEDS: METOPROLOL SUCC 50MG EXT REL TAB PO SCH ×2 (09:17→20:10)
[2022-03-04] MEDS: MIDODRINE HCL 2.5 MG TAB PO SCH ×3 (09:17→15:59)
[2022-03-04] MEDS: CYANOCOBALAMIN (B-12) 500 MCG TABLET PO SCH (09:17)
[2022-03-04] MEDS: HEPARIN SOD 5,000 UNIT/0.5 ML VIAL SC SCH ×2 (09:17→20:11)
[2022-03-04] MEDS: DULoxetine HCL 30 MG CAP PO SCH (09:17)
[2022-03-04] MEDS: allopurinoL 100 MG TAB PO SCH (09:17)
[2022-03-04] MEDS: GABAPENTIN 400 MG CAP PO SCH ×3 (09:18→20:10)
[2022-03-04] MEDS: FAMOTIDINE 20 MG TAB PO SCH (09:18)
[2022-03-04] MEDS: AMIODARONE 200 MG TAB PO SCH ×2 (09:18→20:09)
[2022-03-04] MEDS: DAPTOmycin 400 MG in SYRINGE 0 ML IV SCH (09:19)
--- NOTE | 2022-03-04 14:07 | Billing Data ---
Date of Service March 04, 2022 Coding Level of Care Code 20445 Subseq Hosp Care Lvl 2
[2022-03-04] MEDS: MIRABEGRON ER 25 MG TAB PO SCH (20:10)
[2022-03-04] MEDS: MAGNESIUM OXIDE 400 MG TAB PO SCH (20:10)
[2022-03-04] MEDS: MULTIVITAMIN TAB PO SCH (20:10)
[2022-03-04] MEDS: CALCIUM 600MG + VIT D 400 IU TAB PO SCH (20:10)
[2022-03-04] MEDS: valACYclovir HCL 500 MG TABLET PO SCH (20:11)
[2022-03-05 04:13] LABS: Hematocrit (blood only) 31.6 % (34.1-44.9); Hemoglobin 10.6 g/dl (12.0-16.0); Mean Corpuscular Hemoglobin 32.4 pg (25.0-34.0); Mean Corpuscular Hgb Conc 33.5 g/dL (32.0-36.0); Mean Corpuscular Volume 96.6 fL (80.0-100.0); Mean Platelet Volume 11.3 fL (9.4-12.3); Platelet Count 179 K/uL (130-400); RDW Coefficient of Variation 14.4 % (11.5-14.5); RDW Standard Deviation 50.2 fL (36.4-46.3); Red Blood Count 3.27 M/uL (3.93-5.22); White Blood Count 7.52 K/ul (4.8-10.8)
[2022-03-05] MEDS: MEROPENEM 500 MG in SYRINGE 0 ML IV SCH ×4 (04:30→22:00)
[2022-03-05 04:41] LABS: Albumin Globulin Ratio 1.1 (0.9-2); BUN Creatinine Ratio 24.6 (10-20); Bilirubin,Total 0.8 mg/dl (0.2-1.0); Creatinine Clr Calc Pharmacy 70.5 ml/min; Est GFR (African American) 97.3 ml/min; Globulin 2.7 gm/dl (2.5-4.0); Potassium 4.1 mmol/L (3.5-5.1); Total Protein 5.7 gm/dl (6.0-8.3)
[2022-03-05] MEDS: LEVOTHYROXINE SODIUM 100 MCG TABLET PO SCH (06:12)
--- NOTE | 2022-03-05 07:21 | Hospitalist Progress Note ---
Date of Service March 05, 2022 Assessment & Plan (1) Septic shock: Plan: Ms. Andrews is a 76 y/o female with a PMHX of osteomyelitis, diabetic foot ulcer, gout, colon polyps, CAD, diabetic peripheral neuropathy, dyslipidemia, fibromyalgia, foot deformity, hypothyroidism, depression, vitamin B12 deficiency, GERD without esophagitis, neurogenic bladder, diabetes mellitus, recurrent UTI, rectal incontinence, Charcot's joint of foot, hypertension, anemia, paroxysmal atrial fibrillation and psoriatic arthritis who presented due to AMS, confusion, fevers, chills, and left foot ulcer that led to septic shock requiring BP support in the ICU since downgraded and now clinically improving with antibiotics and supportive care. #Septic shock#Diabetic foot ulcer Septic shock secondary to diabetic foot ulcer of left foot unresponsive to fluids. Required pressures to maintain acceptable MAPs. BP improved and she was taken off of pressors. She has since been downgraded and is doing well. Patient will require IV abx and will likely need termite control representative access with possible PICC line. Blood Cultures negative x48hr. Wound culture from 02/21 grew Enterococcus faecalis [] meropenem and daptomycin - abx started 03/02 - day 4. Will need PICC line vs SNF - refer to PT/OT note [] Tylenol prn for fever; 650mg q6 prn [] Orthopedics consulted; no plan for procedure acutely, does not feel there is osteomyelitis [] CT Foot significant for cellulitis first toe, bony erosion along dorsal and plantar base of the first proximal phalanx [] Plan for OP follow up with Dr. Beard [] PT/OT for eval and treat #Transaminitis - improving Improving transaminitis, likely secondary to septic shock/hypoperfusion. Continue to trend [] AM CMP #Diabetes with neuropathy Hold metformin and dulaglutide; last hemoglobin alc= 6.7 (02/21). Blood sugars have been well controlled with POC glucose between 130-160s. Continue home gabapentin. #A fib Continue amiodarone, metoprolol succinate #Dyslipidemia Continue atorvastatin 80mg #Hypothyroidism Continue levothyroxine #GERD Continue home famotidine, pantoprazole #Gout Continue home allopurinol #Fibromyalgia Continue duloxetine, gabapentin Code: Full FENGI: DM2 Dispo: med surg DVT ppx: heparin (2) Diabetic foot ulcer: (3) Transaminitis: (4) Diabetes: (5) Paroxysmal atrial fibrillation: (6) Diabetic peripheral neuropathy associated with type 2 diabetes mellitus: (7) Dyslipidemia: (8) Hypothyroidism: (9) GERD without esophagitis: (10) Charcot's joint of foot in type 2 diabetes mellitus: (11) Gout: Plan: (12) Fibromyalgia: Admission and Anticipated Discharge Date Admission Date: March 02, 2022 Supervising Physician Co-Signing Physician Notes The patient was seen by me. Case discussed with resident physician. Agree with assessment and plan. Lungs are clear at this time and heart rhythm is regular. She remains on meropenem and daptomycin. She will need a PICC line placed if she is to go home on this regimen. She tells me that she has done home IV antibiotic therapy in the past. She appears to be ready for discharge when antibiotic arrangements are finalized Subjective Patient notes that she is doing well today. She continues to improve. Review of Systems Review of Systems: As per HPI Physical Exam Physical Exam: Constitutional: well-appearing, no acute distress HEENT: NCAT, no conjunctival injection CV: regular rhythm, no murmur appreciated, extremities well-perfused, no LE edema Resp: CTABL, no wheezes/rales/rhonchi appreciated, no increased work of breathing GI: soft, nondistended, MSK: no gross deformities appreciated; wound on left foot wrapped-dressing dry/clean/intact - no strikethrough Skin: warm, dry, no rash appreciated Neuro: alert, oriented, no focal neurologic deficit appreciated Results & Data Results & Data ([facility]) Vital Signs (Past 12 Hours) Vital Signs Temp Pulse Pulse Resp BP Pulse Ox O2 Del Method 03/05/22 03:00 36.7 C 51 L 20 119/71 94 Room Air 03/05/22 00:00 63 03/04/22 23:00 36.6 C 60 18 104/59 L 94 Room Air 03/04/22 20:00 61 120/69 03/04/22 21:00 Room Air, Nasal Cannula 03/04/22 19:38 36.5 C 61 18 112/60 94 Room Air Laboratory Results 03/05/22 03/05/22 03/04/22 Range/Units 04:04 04:04 20:10 WBC 7.52 (4.8-10.8) K/ul RBC 3.27 L (3.93-5.22) M/uL Hgb 10.6 L (12.0-16.0) g/dl Hct 31.6 L (34.1-44.9) % MCV 96.6 (80.0-100.0) fL MCH 32.4 (25.0-34.0) pg MCHC 33.5 (32.0-36.0) g/dL RDW Std Deviation 50.2 H (36.4-46.3) fL RDW Coeff of Kristen 14.4 (11.5-14.5) % Plt Count 179 (130-400) K/uL MPV 11.3 (9.4-12.3) fL Sodium 140 (136-145) mmol/L Potassium 4.1 (3.5-5.1) mmol/L Chloride 105 (98-107) mmol/L Carbon Dioxide 28 (21-32) mmol/L Anion Gap 7 (3-11) BUN 17 (6-23) mg/dl Creatinine 0.69 (0.6-1.2) mg/dl Est Cr Clr Drug Dosing 70.5 ml/min Est GFR ( Amer) 97.3 ml/min Est GFR (Non-Af Amer) 84.0 ml/min BUN/Creatinine Ratio 24.6 H (10-20) Glucose 121 H (70-99(Fasting)) mg/dl POC Glucose 175 H (70-99) mg/dl Calcium 8.0 L (8.5-10.1) mg/dl Total Bilirubin 0.8 D (0.2-1.0) mg/dl AST 51 H (13-39) U/L ALT 108 H (7-52) U/L Alkaline Phosphatase 89 (34-104) U/L Total Protein 5.7 L (6.0-8.3) gm/dl Albumin 3.0 L (3.4-5.0) gm/dl Globulin 2.7 (2.5-4.0) gm/dl Albumin/Globulin Ratio 1.1 (0.9-2) 03/04/22 03/04/22 03/04/22 Range/Units 17:09 12:32 08:14 WBC (4.8-10.8) K/ul RBC (3.93-5.22) M/uL Hgb (12.0-16.0) g/dl Hct (34.1-44.9) % MCV (80.0-100.0) fL MCH (25.0-34.0) pg MCHC (32.0-36.0) g/dL RDW Std Deviation (36.4-46.3) fL RDW Coeff of Kristen (11.5-14.5) % Plt Count (130-400) K/uL MPV (9.4-12.3) fL Sodium (136-145) mmol/L Potassium (3.5-5.1) mmol/L Chloride (98-107) mmol/L Carbon Dioxide (21-32) mmol/L Anion Gap (3-11) BUN (6-23) mg/dl Creatinine (0.6-1.2) mg/dl Est Cr Clr Drug Dosing ml/min Est GFR ( Amer) ml/min Est GFR (Non-Af Amer) ml/min BUN/Creatinine Ratio (10-20) Glucose (70-99(Fasting)) mg/dl POC Glucose 135 H 142 H 118 H (70-99) mg/dl Calcium (8.5-10.1) mg/dl Total Bilirubin (0.2-1.0) mg/dl AST (13-39) U/L ALT (7-52) U/L Alkaline Phosphatase (34-104) U/L Total Protein (6.0-8.3) gm/dl Albumin (3.4-5.0) gm/dl Globulin (2.5-4.0) gm/dl Albumin/Globulin Ratio (0.9-2) Resident Activity Tracking Resident Involvement: Resident Care Provided Care Provided: Adult Hospital Medicine
[2022-03-05] MEDS: METOPROLOL SUCC 50MG EXT REL TAB PO SCH ×2 (08:11→21:58)
[2022-03-05] MEDS: HEPARIN SOD 5,000 UNIT/0.5 ML VIAL SC SCH ×2 (08:11→21:57)
[2022-03-05] MEDS: AMIODARONE 200 MG TAB PO SCH ×2 (08:11→21:57)
[2022-03-05] MEDS: GABAPENTIN 400 MG CAP PO SCH ×3 (08:12→21:58)
[2022-03-05] MEDS: CYANOCOBALAMIN (B-12) 500 MCG TABLET PO SCH (08:13)
[2022-03-05] MEDS: FAMOTIDINE 20 MG TAB PO SCH (08:13)
[2022-03-05] MEDS: DULoxetine HCL 30 MG CAP PO SCH (08:13)
[2022-03-05] MEDS: MIDODRINE HCL 2.5 MG TAB PO SCH ×3 (08:13→16:45)
[2022-03-05] MEDS: allopurinoL 100 MG TAB PO SCH (08:13)
[2022-03-05] MEDS: PANTOprazole 40 MG TAB PO SCH (08:13)
--- NOTE | 2022-03-05 09:25 | Orthopedic Progress Note ---
Date of Service March 05, 2022 Assessment & Plan (1) Chronic ulcer of left foot: Plan: Patient is improving. Patient will follow up with Dr. Gong as an outpatient. Definitive appt date/time is pending discharge. Blood Cultures remain negative. No new wound culture taking; wound culture from 02/21 growing Enterococcus faecalis Continue meropenem and daptomycin Continue PO pain control Continue care per medicine service Admission and Anticipated Discharge Date Admission Date: March 02, 2022 Subjective Patient continues to feel better. Physical Exam Physical Exam: Left foot: superficial scabbing over the lateral aspect of the foot along the fifth metatarsal, resolved. No open wounds or drainage. First MTP joint has a large area of callus and 2 separate dry eschars approximately dime size, unchanged. These are firm, nonfluctuant, and nontender. No erythema or swelling surrounding the first MTP joint. No current lymphangitis on the foot and no edema. Previous ankle scars are stable and have no indication of infection. Neurologic: Gross sensation is intact across both lower extremities down to the knees. She has decreasing peripheral sensation on the shins and absence of sensation on her feet. Peripheral pulses are 1+. Capillary refill is equal for each of the digits. Results & Data ([facility]) Vital Signs (Past 12 Hours) Vital Signs Temp Pulse Pulse Resp BP Pulse Ox O2 Del Method 03/05/22 07:46 36.6 C 61 18 126/70 94 Room Air 03/05/22 03:00 36.7 C 51 L 20 119/71 94 Room Air 03/05/22 00:00 63 03/04/22 23:00 36.6 C 60 18 104/59 L 94 Room Air
[2022-03-05] MEDS: DAPTOmycin 400 MG in SYRINGE 0 ML IV SCH (09:42)
[2022-03-05] MEDS: valACYclovir HCL 500 MG TABLET PO SCH (21:57)
[2022-03-05] MEDS: MAGNESIUM OXIDE 400 MG TAB PO SCH (21:57)
[2022-03-05] MEDS: MULTIVITAMIN TAB PO SCH (21:57)
[2022-03-05] MEDS: MIRABEGRON ER 25 MG TAB PO SCH (21:58)
[2022-03-05] MEDS: CALCIUM 600MG + VIT D 400 IU TAB PO SCH (21:58)
[2022-03-06] MEDS: MEROPENEM 500 MG in SYRINGE 0 ML IV SCH ×3 (06:22→15:48)
[2022-03-06] MEDS: LEVOTHYROXINE SODIUM 100 MCG TABLET PO SCH (06:22)
[2022-03-06 06:55] LABS: Albumin Globulin Ratio 1.1 (0.9-2); Albumin Level 3.1 gm/dl (3.4-5.0); BUN Creatinine Ratio 19.5 (10-20); Bilirubin,Total 0.7 mg/dl (0.2-1.0); Calcium 8.6 mg/dl (8.5-10.1); Creatinine Clr Calc Pharmacy 56.1 ml/min; Est GFR (African American) 74.5 ml/min; Est GFR (Non-African American) 64.3 ml/min; Globulin 2.9 gm/dl (2.5-4.0)
--- NOTE | 2022-03-06 06:56 | Hospitalist Progress Note ---
Date of Service March 06, 2022 Assessment & Plan (1) Septic shock: Plan: Ms. Andrews is a 76 y/o female with a PMHX of osteomyelitis, diabetic foot ulcer, gout, colon polyps, CAD, diabetic peripheral neuropathy, dyslipidemia, fibromyalgia, foot deformity, hypothyroidism, depression, vitamin B12 deficiency, GERD without esophagitis, neurogenic bladder (self-caths), diabetes mellitus, recurrent UTI, rectal incontinence, Charcot's joint of foot, hypertension, anemia, paroxysmal atrial fibrillation and psoriatic arthritis who presented due to AMS, confusion, fevers, chills, and left foot ulcer that led to septic shock requiring BP support in the ICU since downgraded and now clinically improving with antibiotics and supportive care. Septic shock/Diabetic foot ulcer Septic shock secondary to diabetic foot ulcer of left foot unresponsive to fluids. Required pressures to maintain acceptable MAPs. BP improved and she was taken off of pressors. She has since been downgraded and is doing well. Blood Cultures negative x48hr. Wound culture from 02/21 grew Enterococcus faecalis -meropenem and daptomycin - abx started 03/02 - day 5. Will switch to PO antibiotics and plan to d/c tomorrow morning. -Tylenol prn for fever; 650mg q6 prn -Orthopedics consulted; no plan for procedure acutely, does not feel there is osteomyelitis. Ortho comfortable with switch to PO and d/c tomorrow. -CT Foot significant for cellulitis first toe, bony erosion along dorsal and plantar base of the first proximal phalanx -Plan for OP follow up with Dr. Gong, tentatively scheduled Mar 27. 8:30, office will call if changed as they are trying to have her seen later this week. -PT/OT evaluations feel patient is good candidate for home with support of spouse Transaminitis - improving Improving transaminitis, likely secondary to septic shock/hypoperfusion. Continue to trend -AM CMP Diabetes with neuropathy Hold metformin and dulaglutide; last hemoglobin alc= 6.7 (02/21). Blood sugars have been well controlled with POC glucose between 130-160s. Continue home gabapentin. A fib Continue amiodarone, metoprolol succinate Dyslipidemia Continue atorvastatin 80mg Hypothyroidism Continue levothyroxine GERD Continue home famotidine, pantoprazole Gout Continue home allopurinol Fibromyalgia Continue duloxetine, gabapentin Code: Full FENGI: DM2 Dispo: med surg DVT ppx: heparin (2) Diabetic foot ulcer: (3) Transaminitis: (4) Diabetes: (5) Paroxysmal atrial fibrillation: (6) Diabetic peripheral neuropathy associated with type 2 diabetes mellitus: (7) Dyslipidemia: (8) Hypothyroidism: (9) GERD without esophagitis: (10) Charcot's joint of foot in type 2 diabetes mellitus: (11) Gout: Plan: (12) Fibromyalgia: Admission and Anticipated Discharge Date Admission Date: March 02, 2022 Supervising Physician Co-Signing Physician Notes Resident Physician Supervision Note: I independently interviewed and examined the patient and verified the porter history and physical, reviewed labs and image studies and agree with resident findings and care plan. Subjective Patient was seen and examined at bedside. Nadia states she is doing well, feels much better than when she first arrived. Has been eating and drinking per usual. Denies any current pain. Is hopeful to go home tomorrow, lives with in independent living cottages. Denies shortness of breath/chest pain/dizziness/fever/body aches/chills. Review of Systems Review of Systems: As per HPI Physical Exam Constitutional: WD/WN, vitals as above Neck: trachea midline, no thyromegaly Respiratory: normal respiratory effort, lungs clear to auscultation Cardiovascular: RRR, no murmur, no edema Gastrointestinal (Abdomen): normal bowel sounds, soft, nontender, no hepatosplenomegaly Skin: bandages on left foot at first and fifth digit. No drainage or extending erythema. Psychiatric: A+Ox3, euthymic affect Results & Data Results & Data ([facility]) Vital Signs (Past 12 Hours) Vital Signs Temp Pulse Pulse Resp BP Pulse Ox O2 Del Method 03/06/22 02:51 36.7 C 60 18 103/61 93 Room Air 03/06/22 00:29 66 03/05/22 22:56 36.8 C 65 18 107/59 L 95 Room Air 03/05/22 19:25 36.7 C 66 18 136/63 93 Room Air Resident Activity Tracking Resident Involvement: Resident Care Provided Care Provided: Adult Hospital Medicine
[2022-03-06] MEDS: METOPROLOL SUCC 50MG EXT REL TAB PO SCH ×2 (08:16→21:15)
[2022-03-06] MEDS: GABAPENTIN 400 MG CAP PO SCH ×3 (08:16→21:16)
[2022-03-06] MEDS: AMIODARONE 200 MG TAB PO SCH ×2 (08:17→21:16)
[2022-03-06] MEDS: MIDODRINE HCL 2.5 MG TAB PO SCH ×3 (08:17→16:57)
[2022-03-06] MEDS: HEPARIN SOD 5,000 UNIT/0.5 ML VIAL SC SCH ×2 (08:17→21:14)
[2022-03-06] MEDS: CYANOCOBALAMIN (B-12) 500 MCG TABLET PO SCH (08:17)
[2022-03-06] MEDS: PANTOprazole 40 MG TAB PO SCH (08:18)
[2022-03-06] MEDS: allopurinoL 100 MG TAB PO SCH (08:18)
[2022-03-06] MEDS: DULoxetine HCL 30 MG CAP PO SCH (08:18)
[2022-03-06] MEDS: FAMOTIDINE 20 MG TAB PO SCH (08:18)
[2022-03-06] MEDS: DAPTOmycin 400 MG in SYRINGE 0 ML IV SCH (09:50)
[2022-03-06] MEDS: MIRABEGRON ER 25 MG TAB PO SCH (21:14)
[2022-03-06] MEDS: valACYclovir HCL 500 MG TABLET PO SCH (21:14)
[2022-03-06] MEDS: MULTIVITAMIN TAB PO SCH (21:15)
[2022-03-06] MEDS: MAGNESIUM OXIDE 400 MG TAB PO SCH (21:15)
[2022-03-06] MEDS: CALCIUM 600MG + VIT D 400 IU TAB PO SCH (21:16)
[2022-03-07] MEDS: LEVOTHYROXINE SODIUM 100 MCG TABLET PO SCH (05:19)
[2022-03-07 06:22] LABS: Albumin Globulin Ratio 1.1 (0.9-2); Albumin Level 3.3 gm/dl (3.4-5.0); Bilirubin,Total 0.8 mg/dl (0.2-1.0); Calcium 8.8 mg/dl (8.5-10.1); Creatinine Clr Calc Pharmacy 51.6 ml/min; Est GFR (Non-African American) 57.8 ml/min; Globulin 3.1 gm/dl (2.5-4.0); Potassium 4.1 mmol/L (3.5-5.1); Total Protein 6.4 gm/dl (6.0-8.3)
[2022-03-07] MEDS: AMOXICILLIN/CLAVULANATE 875 MG TAB PO SCH ×2 (08:06→16:53)
[2022-03-07] MEDS: CYANOCOBALAMIN (B-12) 500 MCG TABLET PO SCH (08:06)
[2022-03-07] MEDS: DULoxetine HCL 30 MG CAP PO SCH (08:06)
[2022-03-07] MEDS: MIDODRINE HCL 2.5 MG TAB PO SCH ×3 (08:06→16:53)
[2022-03-07] MEDS: allopurinoL 100 MG TAB PO SCH (08:06)
[2022-03-07] MEDS: PANTOprazole 40 MG TAB PO SCH (08:06)
[2022-03-07] MEDS: HEPARIN SOD 5,000 UNIT/0.5 ML VIAL SC SCH (08:07)
[2022-03-07] MEDS: AMIODARONE 200 MG TAB PO SCH (08:07)
[2022-03-07] MEDS: METOPROLOL SUCC 50MG EXT REL TAB PO SCH (08:07)
[2022-03-07] MEDS: FAMOTIDINE 20 MG TAB PO SCH (08:07)
[2022-03-07] MEDS: GABAPENTIN 400 MG CAP PO SCH ×2 (08:07→13:56)
--- NOTE | 2022-03-07 13:50 | Discharge Summary ---
Date of Service March 07, 2022 Admission HPI Per Admitting Provider The patient is a 76-year-old female with a past medical history including history of osteomyelitis, diabetic foot ulcer, gout, colon polyps, CAD, diabetic peripheral neuropathy, dyslipidemia, fibromyalgia, foot deformity, hypothyroidism, depression, vitamin B12 deficiency, GERD without esophagitis, neurogenic bladder, diabetes mellitus, recurrent UTI, rectal incontinence, Charcot's joint of foot, hypertension, anemia, paroxysmal atrial fibrillation and psoriatic arthritis. Patient is very confused upon arrival to the emergency department, is unable to contribute her HPI or review of systems. Presentation is from EMS and as noted above. Admission Exam Per Admitting Provider Physical Exam GENERAL: Ill-appearing. HENT: Exam performed. -Head: Normocephalic and atraumatic. EYES: Conjunctivae and EOM are normal. Pupils are equal, round, and reactive to light. Right eye exhibits no discharge. Left eye exhibits no discharge. No scleral icterus. NECK: Normal range of motion. Neck supple. No JVD present. CV: Normal rate, regular rhythm, normal heart sounds and intact distal pulses. There is no peripheral edema. Palpable radial pulses bue. PULM/CHEST: Rhonchi bilaterally. ABD: The abdomen is soft. MUSC/SKEL: Pelvis stable. NEURO: GCS eye subscore is 3. GCS verbal subscore is 3. GCS motor subscore is 5. SKIN: Skin lesions of the right foot. Principal Diagnosis Septic shock, Left foot Cellulitis Discharge Exam Constitutional WD/WN, vitals as above ENMT external ear and nose normal, oropharynx normal Neck trachea midline, no thyromegaly Respiratory normal respiratory effort, lungs clear to auscultation Cardiovascular RRR, no murmur, no edema Skin no rashes, warm and dry Psychiatric A+Ox3, euthymic affect Discharge Data Allergies Allergy/AdvReac Type Severity Reaction Status Date / Time sulfamethoxazole Allergy Intermediate Hives Verified 03/01/22 08:43 [From Bactrim] trimethoprim [From Bactrim] Allergy Intermediate Hives Verified 03/01/22 08:43 tetanus toxoid, adsorbed Allergy Mild LOCALIZED Verified 03/01/22 08:43 REACTION, MADE HER FEEL SICK amoxicillin AdvReac Intermediate "GOT Verified 03/01/22 08:43 C-DIFF" minocycline AdvReac Mild HEADACHES Verified 03/01/22 08:43 tetracycline AdvReac Mild HEADACHES Verified 03/01/22 08:43 Consultations 03/01/22 23:52 ED Decision to Admit Stat 03/02/22 03:32 Consult Sap Gatherer Routine 03/02/22 09:48 Consult Orthopedic Surgery Routine Ordered Studies 03/01/22 22:00 CT head/brain wo con Urgent 03/01/22 22:41 CT abd pelvis wo con Urgent CT cervical spine wo con Urgent 03/02/22 00:31 CT foot LT wo con Urgent US venous doppler LE LT Urgent Hospital Course (1) Transaminitis: (2) Chronic ulcer of left foot: (3) Septic shock: Plan Ms. Andrews is a 76 y/o female with a PMHX of osteomyelitis, diabetic foot ulcer, gout, colon polyps, CAD, diabetic peripheral neuropathy, dyslipidemia, fibromyalgia, foot deformity, hypothyroidism, depression, vitamin B12 defici ency, GERD without esophagitis, neurogenic bladder (self-caths), diabetes mellitus, recurrent UTI, rectal incontinence, Charcot's joint of foot, hypertension, anemia, paroxysmal atrial fibrillation and psoriatic arthritis who presented due to AMS, confusion, fevers, chills, and left foot ulcer that led to septic shock requiring BP support in the ICU since downgraded and now clinically improving with antibiotics and supportive care. Septic shock secondary to diabetic foot ulcer of left foot unresponsive to fluids. Required pressures to maintain acceptable MAPs. BP improved and she was taken off of pressors. Wound culture from 02/21 grew Enterococcus faecalis, patient originally on meropenem and daptomycin (5 days) and although MRI originally showed concern for osteomyelitis- orthopedics do not feel it was osteomyelitis and agreed with switching to PO antibiotics. Started on Augmentin. During stay had mild transaminitis which improved, likely secondary to septic shock/hypoperfusion. On day of discharge, patient is feeling well- denies SOB, chest pain, fever/chills/body aches- nursing noted some crackles on lung auscultation but I did not appreciate it at my time of exam. Patient was discharged on Augmentin, to continue until Tuesday 03/13- also will hold prophylactic Cefadroxil until appointment with Dr. Gallardo. Patient scheduled to follow up with ortho upon discharge on 03/13. PT/OT evaluations feel patient is good candidate for home with support of spouse. Styles catheter removed and patient instructed to continue self cath as prior routine before hospitalization, follows with urology (for neurogenic bladder). No other medication changes made during stay. Patient encouraged to make follow up appointment with PCP within 1-2 weeks. Total Time Total Time Spent Total Time Spent (In Minutes): . Discharge Plan Discharge Items Patient Disposition: Home - Self-Care Reason For Visit: SEPTIC SHOCK, LLE DIABETIC FOOT ULCER Discharge Diagnosis: Septic shock, left diabetic foot ulcer Activity: Per Instructions section Non-emergency contact: Primary Care Provider and Specialist Call non-emergency contact if: your symptoms worsen, your temperature is above 101.5, your wound has increased drainage and your wound pain has increased Follow-up/Referrals: Reno Perez MD [Primary Care Provider] - 04/03/22 10:00 am (PCP visit: first available April 03, 2022 @ 10am) Garima Gong DPM [Physician] - 03/13/22 2:00 pm (Follow up 1-2 days from discharge) Diet: Carb Consistent or DM2 Addtl Attending Provider Instructions: Nadia, you originally presented due to confusion, fevers, chills, and left foot ulcer. During the stay you went into septic shock requiring BP support in the ICU. After a brief stay in the ICU, you were able to be downgraded to a regular medical floor. You were seen by orthopedics and although an MRI of your foot had some initial concerns for osteomyelitis- orthopedics did not suspect osteomyelitis but rather a cellulitis. You were treated with IV antibiotics (meropenam and daptomycin) for 5 days, but after significant improvement of your symptoms you were switched to oral antibiotics. You are being discharged on oral antibiotics- Augmentin which you will take until Tuesday 03/13. We discussed that you previously had c.diff while taking amoxicillin (which is in Augmentin) but recommend taking a probiotic supplement or eating foods like yogurt. While continuing on the Augmentin, do not take the prophylactic Cefadroxil that you typically take daily. You can resume that after the Augmentin is completed, you can discuss this further with Dr. Gallardo at your appointment next week as well as if he feels any further antibiotics are needed for the cellulitis. You also had elevated liver function tests during your stay, that was likely due to your septic shock as it has since improved. You had a styles catheter in place while in the hospital, it will be removed at your discharge. You mentioned that you have been self-cathing 3x daily for several months and currently follow with urology. You can resume this schedule on discharge and continue to follow with urology. No other changes were made to your medications during this stay, you can continue your remaining home medications as normal. * You have a follow up appointment with Dr. Gallardo on 03/13/22 at 2:00pm. Pending Studies at Discharge: No Stand-Alone Forms: My [facility] [employer] Smoking Cessation Medications and DC Order Prescriptions: New amoxicillin-pot clavulanate 875-125 mg tablet 1 tab PO BIDM 6 Days Qty: 12 0RF Continued nitroglycerin [Nitrostat] 0.4 mg tablet, sublingual 0.4 mg Sublingual Q5M PRN (Reason: Chest Pain) Qty: 25 6RF Rx Instructions: Call 911 for chest pain that exceeds 3 doses valacyclovir 500 mg tablet 500 mg PO QPM 90 Days Qty: 90 4RF Rx Instructions: Take 1 tablet by mouth daily. amiodarone 200 mg tablet 200 mg PO BID Qty: 180 3RF Rx Instructions: Has not been filled since 06/30/21 for 90 nday supply atorvastatin 80 mg tablet 80 mg PO HS Qty: 90 3RF Rx Instructions: TAKE 1 TABLET BY MOUTH AT BEDTIME allopurinol 100 mg tablet 100 mg PO QAM Qty: 90 3RF levothyroxine 100 mcg tablet 100 mcg PO DAILY Qty: 90 3RF metformin 500 mg tablet 500 mg PO QPM Qty: 90 3RF dulaglutide 3 mg/0.5 mL pen injector 3 mg SQ WEEKLY Qty: 2 5RF Rx Instructions: SUNDAYS famotidine 40 mg tablet See Rx Instructions .ROUTE .COMPLEX Qty: 90 3RF Dose Instruction: TAKE 1 TABLET BY MOUTH EVERY DAY Rx Instructions: TAKE 1 TABLET BY MOUTH EVERY DAY methenamine hippurate 1 gram tablet 1 g PO BID Qty: 60 5RF metoprolol succinate 50 mg tablet extended release 24 hr 50 mg PO BID Qty: 180 3RF ondansetron 4 mg tablet,disintegrating 4 mg PO Q8H PRN (Reason: nausea and vomiting) 3 Days Qty: 10 0RF Premarin 0.625 mg/gram cream 0.625 mg vaginal 2XWK Rx Instructions: ON HOLD D/T CATHING SELF. off 5 days; repeat cycle Myrbetriq 50 mg tablet extended release 24 hr 50 mg PO QPM risedronate 150 mg tablet 150 mg PO WK Label Comments: takes on sunday qam Rx Instructions: ON HOLD multivitamin Tablet 1 tab PO QPM gabapentin 400 mg Capsule 400 mg PO TID potassium 99 mg Tablet 1 tab PO HS magnesium 250 mg Tablet 250 mg PO HS cyanocobalamin-cobamamide [B-12 Plus] 5,000-100 mcg Tablet, Sublingual 1,000 mcg sublingual QAM triamcinolone acetonide [Nasacort] 55 mcg Aerosol,[place] 1 spray INTRANASAL HS calcium carbonate-vitamin D3 [Calcium 500 + D] 500 mg(1,250mg) -200 unit tablet 2 tab PO QPM [id number] 3.5-400-5,000 [id number] Ointment In Packet 1 applic TOPICAL DIRECTED Xarelto 15 mg tablet 15 mg PO DAILY Qty: 30 5RF Rx Instructions: must administer with evening meal ferrous sulfate [iron] 325 mg (65 mg iron) tablet 325 mg PO Q OTHER DAY Label Comments: takes in the am esomeprazole magnesium [Nexium] 40 mg capsule,delayed release(DR/EC) 40 mg PO QAM triamterene-hydrochlorothiazid 37.5-25 mg tablet 1 tab PO QAM duloxetine [Cymbalta] 30 mg capsule,delayed release(DR/EC) 30 mg PO QAM Discontinued cefadroxil 1 gram tablet 1 g PO QPM Rx Instructions: per 1st Discharge Orders: Discharge Order (Routine); Ordered 03/07/22 Ordered By: Shy Roth Admission Data Admit Date/Time: 03/02/22 00:50 Attending Provider: Anat Carnes Admit Provider: Austen Prescott Primary Care Provider: Reno Perez Other Providers: Austen Prescott ; Eliseo Hagen ; Jamie Stephens Other Interventions: Discharge Summary Assessment (RN) Last Done: 03/07/22 16:11 Supervising Physician Co-Signing Physician Notes Resident Physician Supervision Note: I independently interviewed and examined the patient and verified the porter history and physical, reviewed labs and image studies and agree with resident findings and care plan.
== END 2022-03-07 17:53 | disposition home or self-care (01) | DRG 871 ==
LOC: ED 21:43 → SUATTDRO 03-02 00:50 → 1E 03-02 00:50 → 4W 03-04 02:25
DX: E03.9 Hypothyroidism, unspecified; Z20.822 Contact with and (suspected) exposure to COVID-19; L03.116 Cellulitis of left lower limb; E11.49 Type 2 diabetes mellitus with other diabetic neurological complication; E11.621 Type 2 diabetes mellitus with foot ulcer; E11.42 Type 2 diabetes mellitus with diabetic polyneuropathy; B95.2 Enterococcus as the cause of diseases classified elsewhere; G93.41 Metabolic encephalopathy; Z99.3 Dependence on wheelchair; Z88.1 Allergy status to other antibiotic agents; E53.8 Deficiency of other specified B group vitamins; I10 Essential (primary) hypertension; Z87.440 Personal history of urinary (tract) infections; R65.21 Severe sepsis with septic shock; Z95.1 Presence of aortocoronary bypass graft; E11.610 Type 2 diabetes mellitus with diabetic neuropathic arthropathy; M10.9 Gout, unspecified; Z88.7 Allergy status to serum and vaccine; M79.7 Fibromyalgia; E78.00 Pure hypercholesterolemia, unspecified; E83.42 Hypomagnesemia; R74.01 Elevation of levels of liver transaminase levels; M86.8X7 Other osteomyelitis, ankle and foot; N17.0 Acute kidney failure with tubular necrosis; Z96.652 Presence of left artificial knee joint; N31.9 Neuromuscular dysfunction of bladder, unspecified; I25.10 Atherosclerotic heart disease of native coronary artery without angina pectoris; L97.928 Non-pressure chronic ulcer of unspecified part of left lower leg with other specified severity; A41.9 Sepsis, unspecified organism; I48.91 Unspecified atrial fibrillation; M87.9 Osteonecrosis, unspecified; N39.0 Urinary tract infection, site not specified; Z88.2 Allergy status to sulfonamides; E11.21 Type 2 diabetes mellitus with diabetic nephropathy

== ENCOUNTER 2023-05-16 18:27 | Inpatient (IN) ==
[2023-05-16 19:17] LABS: Base Excess VBG 1.9 mEq/L; HCO3 VBG 28 mmol/L; Oxygen Saturation VBG < 60.0 %; PCO2 VBG 50 mmHg (38-50); PO2 VBG 27 mmHg; pH VBG 7.36 (7.36-7.41)
[2023-05-16] MEDS: CEFEPIME 2,000 MG/20 ML VIAL IV STA (19:21)
[2023-05-16] MEDS: ACETAMINOPHEN 1,000 MG/100 ML VIAL IV STA (19:21)
[2023-05-16] MEDS: SODIUM CHLORIDE 0.9% 1,000 ML IV SCH ×2 (19:21→23:35)
[2023-05-16 19:23] LABS: Basophils # (auto) 0.05 K/uL (0.00-0.20); Basophils % (auto) 0.4 %; Eosinophils # (auto) 0.05 K/uL (0.00-0.50); Eosinophils % (auto) 0.4 %; Hematocrit (blood only) 33.4 % (37.0-47.0); Hemoglobin 10.9 g/dl (12.0-16.0); Immature Granulocytes # (auto) 0.26 K/uL (0.01-0.20); Lymphocytes # (auto) 1.45 K/uL (1.20-3.40); Mean Corpuscular Hemoglobin 31.1 pg (25.0-34.0); Mean Corpuscular Hgb Conc 32.6 g/dL (32.0-36.0); Mean Corpuscular Volume 95.2 fL (80.0-100.0); Mean Platelet Volume 12.2 fL (9.4-12.4); Monocytes # (auto) 1.36 K/uL (0.11-0.59); Monocytes % (auto) 10.3 %; Neutrophils # (auto) 10.07 K/uL (1.40-6.50); Neutrophils % (auto) 75.9 %; Platelet Count 207 K/uL (130-400); RDW Coefficient of Variation 14.6 % (11.5-14.5); RDW Standard Deviation 50.1 fL (36.4-46.3); Red Blood Count 3.51 M/uL (4.20-5.40); White Blood Count 13.24 K/ul (4.8-10.8)
--- NOTE | 2023-05-16 19:24 | Emergency Department Note ---
Impression & Plan Sepsis, Acute UTI, Cellulitis, Acute hyperglycemia, Acute dehydration, Elevated lactic acid level ED Provider Note NAME: KATY DING AGE: 77 SEX: F : 1945 ARRIVES VIA: Ambulance INFORMANT: [Patient][ems] ED PROVIDER(S): [Yan Steven MD] CHIEF COMPLAINT: Confusion HISTORY OF PRESENT ILLNESS: The patient is a 77-year-old female who states that she has not felt well for a few days. She has had some chills and has been weak. Her sugars have been running higher. She has had some urinary frequency. She has noticed some discharge on the dressing of her left foot. The patient's noticed the patient was confused last night. Today, things persisted. She was brought to the hospital by EMS. The patient has a cough but this is chronic. She thinks that she may have had a fever as she has been chilled. She has not had abdominal pain, no vomiting, no diarrhea. Of note, the patient just finished Macrobid for a UTI. PMHx/PSHx/Social Hx: See Below PHYSICAL EXAM: GENERAL: Patient is in no acute distress. HEENT: No acute trauma, normocephalic atraumatic, mucous membranes moist, no nasal congestion. NECK: No stridor, no adenopathy, no meningismus, trachea is midline. LUNGS: Clear to auscultation bilaterally when listening anterior, no wheeze, no rhonchi, breath sounds equal. HEART: Subtle systolic murmur, regular rate and rhythm. ABDOMEN: Soft, nontender, no peritonitis. EXTREMITIES: No cyanosis, full range of motion of all the joints without pain or difficulty. The patient does have discharge on the dressing of her left foot. The left second toe has some discharge and appears to be acutely infected with some erythema. There is a foul odor on the dressing. The erythema does spread up the foot and is present on the distal left leg. NEUROLOGIC: Oriented x 3, no acute motor or sensory deficits, no focal weakness. SKIN: No jaundice, no diaphoresis. Warm to the touch. DIFFERENTIAL DIAGNOSIS: Bacteremia or sepsis, cellulitis, osteomyelitis, UTI, dehydration, viral illness, hyperglycemia or DKA, among others. EMERGENCY DEPARTMENT PROCEDURES: MEDICAL DECISION MAKING: There is a mild leukocytosis, this certainly could be consistent with infection. A mild anemia was seen. There was a normal platelet count. No coagulopathy. VBG did not show any acidosis. Renal panel testing showed some dehydration with some acute kidney injury. Sodium was low. Sugar was high at over 400. Lactic acid level was elevated consistent with infection/dehydration. There were some subtle liver enzyme elevations. Ammonia level was not elevated. Patient appeared to be in a euthyroid state. ECG shows a sinus rhythm, there was no ST elevation. Cardiac enzyme testing x 1 is slightly elevated. This troponin elevation could be secondary to mismatch from her illness versus some cardiac injury. Urinalysis does show findings of infection. Respiratory bio fire was negative. Chest x-ray did not show pneumonia or CHF. Brain CT showed no acute bleed or mass effect. CT of the foot did not show any osteomyelitis. On exam, the patient was very slightly febrile, she had an obvious left lower leg and foot cellulitis. The patient was aggressively managed. She received IV saline, 2 L. She was given IV cefepime as empiric antibiotic coverage. She received IV Tylenol. I spoke to the patient about her findings. Of note, the patient's blood pressure was slightly low but still adequate. The blood pressure seemed to improve with the IV fluids. The patient does appear to be septic. The source may be the urine, the foot or both. She is hyperglycemic and in need of a hospital stay. I spoke with case management, the on-call hospitalist was consulted. Prior/Outside records/notes reviewed: Today's EMS notes describing her presentation and transfer to this hospital. ECG per my interpretation: Indication was weakness. The ECG shows a normal sinus rhythm with a rate of 89. There is some ST depression with T wave inversion in the anterior lateral leads. No ST elevation. No PVCs. The QTc is 447. Continuous Cardiac Monitoring per my interpretation: An order was placed for continuous cardiac monitoring. The monitor shows a rate of 87 with normal sinus rhythm. Imaging/x-ray results per my interpretation: Chest x-ray shows some potential atelectasis at the bases, there was no pneumonia or pneumothorax. Chronic Medical/Social conditions affecting care: Advanced age. Care/Management discussed with: Case management, the on-call hospitalist. Level of care consideration(s): After review of the information above and other included data: --I believe the patient requires escalation of care to admission Critical Care Note: I have personally spent 52 minutes of critical care time in the direct management of this patient. This includes bedside care, interpretation of diagnostic studies, and testing, discussion with consultants, patient, and family members, and other required patient management activities. This 52 minutes is in excess of all separately billable procedures. DISPOSITION: Admission Past Med/Surg History Medical History Sepsis Encounter for colorectal cancer screening Chest pain RE-OCCURING ON OCC/ MOST RECENT LAST WEEK / USED NITRO FOR DENIES CHANGE IN BASELINE OCCURENCE DETAILS PT HAS DISCUSSED PAST OCCURENCES WITH DR OROPEZA History of colon polyps -12/01 were normal and 1 something abdnormal/reason for upcoming colonoscopy Incomplete bladder emptying self cath tid Overactive bladder Wheelchair dependence pt states she can stand and pivot on her own On antibiotic therapy preventative for recurring wound infection to rt foot and recurring UTIs - abx tx through picc line completed 3 - 4 weeks ago current : wound on foot doing really well per pt/no current s/s uti History of ESBL E. coli infection Rectal ulcer hx Arthritis Charcot's joint of foot in type 2 diabetes mellitus Sensorineural hearing loss of both ears Hemorrhoids, internal, with bleeding hx Stress incontinence in female Paroxysmal atrial fibrillation dx 2015 - on xarelto - follows with Dr. 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 03/12/2018. DONE AT [facility]. BLOCK WITH LMA. NO ISSUES. History of dilatation and curettage History of bilateral tubal ligation Charcot's joint of foot RIGHT FOOT (4 SURGERIES TOTAL) History of total knee replacement LEFT History of ankle surgery LEFT History of surgery BLADDER STIMULATOR IMPLANTED IN BACK- not sure if currently working History of bladder repair surgery R/T URINARY LEAKAGE History of colonoscopy History of tooth extraction History of tonsillectomy History of adenoidectomy History of cataract surgery RIGHT/LEFT History of coronary artery bypass graft CABG X 3 (2015) History of cardiac cath 2015= NO STENTS Family History Mother Family hx of colon cancer Cardiac disorder Colorectal cancer Cancer Hypertension Father Cardiac disorder Lung cancer Hypertension Grandmother (Maternal) Stroke Other No family history of adverse response to anesthesia Denies family history of Ovarian cancer Breast cancer Social History Smoking Status: Never smoker Second Hand Exposure: No; Do You Dip or Chew Tobacco: No; Hx Alcohol Use: Yes Alcohol type: wine Alcohol Intake Frequency: Monthly or Less Hx Substance Use: No Preferred Language: Divehi Communication Ability: Effective Visual Impairment: Limited Hearing Ability: Use of Hearing Aid [employer] Required: No Beliefs That Will Affect Care: None marital status: Current Living Situation: Spouse current occupational status: retired Other Information That Helps Us Care for You: No Feels Safe at Home: Yes Safety Concerns: Feels Safe At This Time Diet: diabetic and regular caffeine: No Do you think of yourself as: straight/heterosexual Gender Identity: Female Assistive Devices: Glasses and Wheelchair Allergies Allergies Allergy/AdvReac Type Severity Reaction Status Date / Time sulfamethoxazole Allergy Intermediate Hives Verified 05/16/23 20:35 [From Bactrim] tetanus toxoid, adsorbed Allergy Intermediate LOCALIZED Verified 05/16/23 20:35 REACTION (arm swelling), MADE HER FEEL SICK trimethoprim [From Bactrim] Allergy Intermediate Hives Verified 05/16/23 20:35 amoxicillin AdvReac Intermediate "GOT Verified 05/16/23 20:35 C-DIFF" dalbavancin [From Dalvance] AdvReac Intermediate Vomiting Verified 05/16/23 20:35 minocycline AdvReac Intermediate HEADACHES Verified 05/16/23 20:35 tetracycline AdvReac Intermediate HEADACHES Verified 05/16/23 20:35 Home Meds Home Medications Medication Instructions Recorded Confirmed gabapentin 400 mg capsule 400 mg PO TID 02/19/18 05/16/23 multivitamin 1 tab PO QAM 02/19/18 05/16/23 potassium 99 mg tablet 1 tab PO QPM 02/19/18 05/16/23 cyanocobalamin (B12)-cobamamide 1,000 mcg sublingual QAM 03/12/18 05/16/23 5,000 mcg-100 mcg sublingual tablet (B-12 Plus) calcium carbonate 500 mg-vitamin 1 tab PO BID 06/14/20 05/16/23 D3 5 mcg (200 unit) tablet (Calcium 500 + D) conjugated estrogens 0.625 mg/gram 0.625 mg vaginal 2XWK 03/07/21 05/16/23 vaginal cream (Premarin) ferrous sulfate 325 mg (65 mg 325 mg PO Q OTHER DAY 05/16/21 05/16/23 iron) tablet (iron) neomycin-bacitracn Zn-polymyxn 3.5 1 applic topical DIRECTED PRN 10/18/21 05/16/23 mg-400 unit-5,000 unit top oint pkt skin irritation ascorbic acid (vitamin C) 500 mg 500 mg PO DAILY 05/23/22 05/16/23 tablet (Vitamin C) prednisone 5 mg tablet 5 mg PO QAM 05/23/22 05/16/23 rivaroxaban 15 mg tablet (Xarelto) 15 mg PO QDD 05/23/22 05/16/23 allopurinol 100 mg tablet 100 mg PO QAM 05/16/23 05/16/23 amiodarone 200 mg tablet 200 mg PO QAM 05/16/23 05/16/23 cyclosporine 0.05 % eye drops in a 1 drp OPB Q12H 05/16/23 05/16/23 dropperette (Restasis) diclofenac sodium 1 % topical gel 2 g topical QID PRN Pain 05/16/23 05/16/23 duloxetine 30 mg capsule,delayed 30 mg PO QAM 05/16/23 05/16/23 release esomeprazole magnesium 40 mg 40 mg PO QAM 05/16/23 05/16/23 capsule,delayed release famotidine 40 mg tablet 40 mg PO QPM 05/16/23 05/16/23 insulin glargine 100 unit/mL (3 4 unit subcut DIRECTED 05/16/23 05/16/23 mL) subcutaneous pen (Lantus Solostar U-100 Insulin) triamterene 37.5 1 tab PO QAM 05/16/23 05/16/23 mg-hydrochlorothiazide 25 mg tablet valacyclovir 500 mg tablet 500 mg PO QPM 05/16/23 05/16/23 Previous Rx's Medication Instructions Recorded nitroglycerin 0.4 mg sublingual 0.4 mg sublingual Q5M PRN Chest 03/29/20 tablet (Nitrostat) Pain #25 tabs metformin 500 mg tablet 500 mg PO QPM #90 tabs 07/19/22 atorvastatin 80 mg tablet 80 mg PO HS #90 tabs 08/16/22 blood sugar diagnostic (OneTouch #100 ea 11/10/22 Verio test strips) lancets 30 gauge (OneTouch Delica #100 ea 11/10/22 Plus Lancet) levothyroxine 125 mcg tablet 125 mcg PO DAILY #30 tabs 12/05/22 blood-glucose meter (OneTouch #1 ea 12/26/22 Verio Flex Meter) pen needle, diabetic 32 gauge x #100 ea 12/28/22 5/32" (BD Daly 2nd Gen Pen Needle) pen needle, diabetic 32 gauge x #100 ea 12/29/22 532" (BD Daly 2nd Gen Pen Needle) metoprolol succinate 50 mg 50 mg PO BID #180 tabs 01/29/23 tablet,extended release 24 hr dulaglutide 4.5 mg/0.5 mL 4.5 mg (0.5 mL) subcut WEEKLY #2 mL 04/02/23 subcutaneous pen injector mirabegron 50 mg tablet,extended 50 mg PO DAILY #90 tabs 04/09/23 release 24 hr (Myrbetriq) methenamine hippurate 1 gram tablet 1 g PO BID #180 tabs 04/12/23 nitrofurantoin 100 mg PO BID #28 caps 04/27/23 monohydrate/macrocrystals 100 mg capsule (Macrobid) Results & Data (ED) Vital Signs Vital Signs - 24 hr 05/16/23 18:39 05/16/23 18:57 05/16/23 19:27 Temperature 37.5 C Temperature Source Oral Pulse Rate 88 87 84 Pulse Rate [Apical] Respiratory Rate 22 22 Respiratory Effort / Characteristics Non-Labored Spontaneous Respiratory Depth Normal Respiratory Pattern Regular Blood Pressure 150/66 H Blood Pressure [Right Arm] Blood Pressure Mean 94 Blood Pressure Mean [Right Arm] Blood Pressure Position Lying Blood Pressure Position [Right Arm] Pulse Oximetry 94 94 Oxygen Delivery Method Room Air Room Air Sepsis Recent Fever Within 48 Hours No Sepsis New/Unexplained Change in Mental Status N/A Sepsis Action Taken by Nursing No Action Required 05/16/23 19:27 05/16/23 19:32 05/16/23 20:03 Temperature Temperature Source Pulse Rate Pulse Rate [Apical] 84 85 Respiratory Rate 22 20 Respiratory Effort / Characteristics Non-Labored Spontaneous Respiratory Depth Normal Respiratory Pattern Regular Blood Pressure Blood Pressure [Right Arm] 123/52 L 103/50 L Blood Pressure Mean Blood Pressure Mean [Right Arm] 75 67 Blood Pressure Position Blood Pressure Position [Right Arm] Lying Pulse Oximetry 94 94 98 Oxygen Delivery Method Room Air Room Air Sepsis Recent Fever Within 48 Hours Sepsis New/Unexplained Change in Mental Status Sepsis Action Taken by Nursing 05/16/23 20:15 05/16/23 21:00 Temperature Temperature Source Pulse Rate Pulse Rate [Apical] 86 81 Respiratory Rate 22 20 Respiratory Effort / Characteristics Non-Labored Spontaneous Non-Labored Spontaneous Respiratory Depth Normal Normal Respiratory Pattern Regular Regular Blood Pressure Blood Pressure [Right Arm] 109/47 L 114/51 L Blood Pressure Mean Blood Pressure Mean [Right Arm] 67 72 Blood Pressure Position Blood Pressure Position [Right Arm] Lying Lying Pulse Oximetry 96 92 Oxygen Delivery Method Room Air Room Air Sepsis Recent Fever Within 48 Hours Sepsis New/Unexplained Change in Mental Status Sepsis Action Taken by [facility] Medications Current Medication List: was personally reviewed by me Laboratory Data Attestation: I reviewed the patient's lab results. 05/16/23 19:00 05/16/23 19:00 Lab Results 05/16/23 05/16/23 05/16/23 Range/Units 18:35 19:00 19:12 WBC 13.24 H (4.8-10.8) K/ul RBC 3.51 L (4.20-5.40) M/uL Hgb 10.9 L (12.0-16.0) g/dl Hct 33.4 L (37.0-47.0) % MCV 95.2 (80.0-100.0) fL MCH 31.1 (25.0-34.0) pg MCHC 32.6 (32.0-36.0) g/dL RDW Std Deviation 50.1 H (36.4-46.3) fL RDW Coeff of Kristen 14.6 H (11.5-14.5) % Plt Count 207 (130-400) K/uL MPV 12.2 (9.4-12.4) fL Immature Gran % (Auto) 2.0 % Neut % (Auto) 75.9 % Lymph % (Auto) 11.0 % [place] % (Auto) 10.3 % Eos % (Auto) 0.4 % Baso % (Auto) 0.4 % Neut # (Auto) 10.07 H (1.40-6.50) K/uL Lymph # (Auto) 1.45 (1.20-3.40) K/uL [place] # (Auto) 1.36 H (0.11-0.59) K/uL Eos # (Auto) 0.05 (0.00-0.50) K/uL Baso # (Auto) 0.05 (0.00-0.20) K/uL Immature Gran # (Auto) 0.26 H (0.01-0.20) K/uL PT 12.4 H (9.0-12.0) Seconds INR 1.1 (0.9-1.1) APTT 31 (21-31) Seconds PTT Ratio 1.1 VBG pH 7.36 (7.36-7.41) VBG pCO2 50 (38-50) mmHg VBG pO2 27 mmHg VBG HCO3 28 mmol/L VBG O2 Saturation < 60.0 % VBG Base Excess 1.9 mEq/L Sodium 130 L (136-145) mmol/L Potassium 4.6 (3.5-5.1) mmol/L Chloride 92 L (98-107) mmol/L Carbon Dioxide 27 (21-32) mmol/L Anion Gap 11 (3-11) BUN 30 H (6-23) mg/dl Creatinine 1.46 H (0.6-1.2) mg/dl Est Cr Clr Drug Dosing Not Reportable Est GFR ( Amer) 39.5 ml/min Est GFR (Non-Af Amer) 34.1 ml/min BUN/Creatinine Ratio 20.5 H (10-20) Glucose 446 H* (70-99(Fasting)) mg/dl POC Glucose 481 H* (70-99) mg/dl Lactate 3.7 H* (0.4-2.0) mmol/L Calcium 9.3 (8.6-10.3) mg/dl Magnesium 2.0 (1.7-2.4) mg/dl Total Bilirubin 1.4 H (0.2-1.0) mg/dl AST 23 (13-39) U/L ALT 32 (7-52) U/L Alkaline Phosphatase 121 H (34-104) U/L Ammonia (18-72) umol/L Troponin I High Sens 20.2 H (0-14) pg/ml Total Protein 7.9 (6.0-8.3) gm/dl Albumin 3.6 (3.4-5.0) gm/dl Globulin 4.3 H (2.5-4.0) gm/dl Albumin/Globulin Ratio 0.8 L (0.9-2) TSH 1.047 (0.300-4.500) uIu/ml Urine Color Urine Appearance (Clear) Urine pH (4.5-7.5) Ur Specific [place] (1.000-1.030) Urine Protein (Negative) Urine Glucose (UA) (Negative) Urine Ketones (Negative) Urine Blood (Negative) Urine Nitrite (Negative) Urine Bilirubin (Negative) Urine Urobilinogen (Negative) Ur Leukocyte Esterase (Negative) Urine WBC (Auto) Urine RBC (Auto) U Hyaline Cast (Auto) U Epithel Cells (Auto) Urine Bacteria (Auto) Urine RBC (0-4) /hpf Urine WBC (0-5) /hpf Ur Epithelial Cells (0-5) /lpf Urine Bacteria (Negative) Urine Yeast (None Prsent) Adenovirus (PCR) Not Detected (NotDetected) B. pertussis DNA (PCR) Not Detected (NotDetected) B.parapertussis DNA PCR Not Detected (NotDetected) C. pneumoniae DNA (PCR) Not Detected (NotDetected) Coronavirus OC43 (PCR) Not Detected (NotDetected) Coronavirus HKU1 (PCR) Not Detected (NotDetected) Coronavirus 229E (PCR) Not Detected (NotDetected) SARS-CoV-2 (PCR) Not Detected (NotDetected) Coronavirus NL63 (PCR) Not Detected (NotDetected) Human Metapneumovir PCR Not Detected (NotDetected) Influenza Type A (PCR) Not Detected (NotDetected) Influenza Type B (PCR) Not Detected (NotDetected) M. pneumoniae (PCR) Not Detected (NotDetected) Parainfluenza 1 (PCR) Not Detected (NotDetected) Parainfluenza 2 (PCR) Not Detected (NotDetected) Parainfluenza 3 (PCR) Not Detected (NotDetected) Parainfluenza 4 (PCR) Not Detected (NotDetected) RSV (PCR) Not Detected (NotDetected) Entero/Rhino (PCR) Not Detected (NotDetected) 05/16/23 05/16/23 05/16/23 Range/Units 19:15 20:30 20:48 WBC (4.8-10.8) K/ul RBC (4.20-5.40) M/uL Hgb (12.0-16.0) g/dl Hct (37.0-47.0) % MCV (80.0-100.0) fL MCH (25.0-34.0) pg MCHC (32.0-36.0) g/dL RDW Std Deviation (36.4-46.3) fL RDW Coeff of Kristen (11.5-14.5) % Plt Count (130-400) K/uL MPV (9.4-12.4) fL Immature Gran % (Auto) % Neut % (Auto) % Lymph % (Auto) % [place] % (Auto) % Eos % (Auto) % Baso % (Auto) % Neut # (Auto) (1.40-6.50) K/uL Lymph # (Auto) (1.20-3.40) K/uL [place] # (Auto) (0.11-0.59) K/uL Eos # (Auto) (0.00-0.50) K/uL Baso # (Auto) (0.00-0.20) K/uL Immature Gran # (Auto) (0.01-0.20) K/uL PT (9.0-12.0) Seconds INR (0.9-1.1) APTT (21-31) Seconds PTT Ratio VBG pH (7.36-7.41) VBG pCO2 (38-50) mmHg VBG pO2 mmHg VBG HCO3 mmol/L VBG O2 Saturation % VBG Base Excess mEq/L Sodium (136-145) mmol/L Potassium (3.5-5.1) mmol/L Chloride (98-107) mmol/L Carbon Dioxide (21-32) mmol/L Anion Gap (3-11) BUN (6-23) mg/dl Creatinine (0.6-1.2) mg/dl Est Cr Clr Drug Dosing Est GFR ( Amer) ml/min Est GFR (Non-Af Amer) ml/min BUN/Creatinine Ratio (10-20) Glucose (70-99(Fasting)) mg/dl POC Glucose (70-99) mg/dl Lactate 2.8 H* (0.4-2.0) mmol/L Calcium (8.6-10.3) mg/dl Magnesium (1.7-2.4) mg/dl Total Bilirubin (0.2-1.0) mg/dl AST (13-39) U/L ALT (7-52) U/L Alkaline Phosphatase (34-104) U/L Ammonia 23.0 (18-72) umol/L Troponin I High Sens 15.9 H D (0-14) pg/ml Total Protein (6.0-8.3) gm/dl Albumin (3.4-5.0) gm/dl Globulin (2.5-4.0) gm/dl Albumin/Globulin Ratio (0.9-2) TSH (0.300-4.500) uIu/ml Urine Color Yellow Urine Appearance Turbid A (Clear) Urine pH 5.5 (4.5-7.5) Ur Specific [place] 1.020 (1.000-1.030) Urine Protein 1+ H (Negative) Urine Glucose (UA) 3+ H (Negative) Urine Ketones Negative (Negative) Urine Blood 2+ H (Negative) Urine Nitrite Negative (Negative) Urine Bilirubin Negative (Negative) Urine Urobilinogen Negative (Negative) Ur Leukocyte Esterase 2+ H (Negative) Urine WBC (Auto) Not Reportable Urine RBC (Auto) Not Reportable U Hyaline Cast (Auto) Not Reportable U Epithel Cells (Auto) Not Reportable Urine Bacteria (Auto) Not Reportable Urine RBC >30 H (0-4) /hpf Urine WBC >30 H (0-5) /hpf Ur Epithelial Cells 0-5 (0-5) /lpf Urine Bacteria 1+ H (Negative) Urine Yeast Present A (None Prsent) Adenovirus (PCR) (NotDetected) B. pertussis DNA (PCR) (NotDetected) B.parapertussis DNA PCR (NotDetected) C. pneumoniae DNA (PCR) (NotDetected) Coronavirus OC43 (PCR) (NotDetected) Coronavirus HKU1 (PCR) (NotDetected) Coronavirus 229E (PCR) (NotDetected) SARS-CoV-2 (PCR) (NotDetected) Coronavirus NL63 (PCR) (NotDetected) Human Metapneumovir PCR (NotDetected) Influenza Type A (PCR) (NotDetected) Influenza Type B (PCR) (NotDetected) M. pneumoniae (PCR) (NotDetected) Parainfluenza 1 (PCR) (NotDetected) Parainfluenza 2 (PCR) (NotDetected) Parainfluenza 3 (PCR) (NotDetected) Parainfluenza 4 (PCR) (NotDetected) RSV (PCR) (NotDetected) Entero/Rhino (PCR) (NotDetected) Administered Medications Atorvastatin Calcium (Atorvastatin 40 Mg Tab) 80 mg PO HS [facility] Stop: 06/15/23 22:55 Last Admin: 05/17/23 00:11 Dose: 80 mg Documented By: JENNIFER Gabapentin (Gabapentin 400 Mg Cap) 400 mg PO TID [facility] Stop: 06/15/23 22:55 Last Admin: 05/17/23 00:11 Dose: 400 mg Documented By: JENNIFER Sodium Chloride (Nss) 1,000 mls @ 75 mls/hr IV .[id number] [facility] Stop: 06/15/23 22:55 Last Admin: 05/16/23 23:35 Dose: 75 mls/hr Documented By: JENNIFER Meropenem 500 mg/ Syringe 10 mls @ 2 mls/min IV Q8H [facility]; Protocol Stop: 05/27/23 00:00 Last Admin: 05/17/23 00:12 Dose: 2 mls/min Documented By: JENNIFER Insulin Aspart (Insulin Aspart Per Unit Charge) 0 units SC ACHS [facility] Stop: 06/15/23 23:44 Last Admin: 05/17/23 00:07 Dose: 9 units Documented By: LSG Co-signed By: LEAH Metoprolol Succinate (Metoprolol Succ 50mg Ext Rel Tab) 50 mg PO BID DENEEN Stop: 06/15/23 22:55 Last Admin: 05/16/23 23:35 Dose: Not Given Documented By: LSG Discontinued Medications Sodium Chloride (Nss) 1,000 mls @ 999 mls/hr IV .Q1H1M DENEEN Stop: 05/16/23 20:00 Last Infusion: 05/16/23 22:10 Dose: Infused Documented By: Admin: 05/16/23 19:21 Dose: 999 mls/hr Documented By: ERICK Cefepime HCl (Maxipime) 2,000 mg in 20 mls @ 5 mls/min IV NOW STA; Protocol Stop: 05/16/23 19:11 Last Admin: 05/16/23 19:21 Dose: 5 mls/min Documented By: MAR Acetaminophen (Ofirmev) 1,000 mg in 100 mls @ 400 mls/hr IV NOW STA Stop: 05/16/23 19:22 Last Infusion: 05/16/23 20:16 Dose: Infused Documented By: Admin: 05/16/23 19:21 Dose: 400 mls/hr Documented By: ERICK Sodium Chloride (Nss) 1,000 mls @ 999 mls/hr IV .Q1H1M ONE Stop: 05/16/23 21:10 Last Infusion: 05/16/23 22:10 Dose: Infused Documented By: Admin: 05/16/23 20:51 Dose: 999 mls/hr Documented By: ERICK Insulin Glargine (Lantus Per Unit Charge) 4 units SQ NOW STA Stop: 05/16/23 23:19 Last Admin: 05/16/23 23:48 Dose: 4 units Documented By: JENNIFER Co-signed By: MALLIKA Imaging Data Radiologist's Impression: Head CT 05/16/23 18:56 CT head/brain wo con CLINICAL HISTORY: altered Technique: Contiguous axial CT images of the head were acquired from the base of the skull to the vertex without intravenous contrast administration. Images were viewed in brain, subdural and bone windows. Automated dose lowering techniques and/or adjustment according to patient size were utilized for this exam. Comparison: Comparison is made to CT head 03/01/2022 Findings: The ventricles, basal cisterns, and cerebral sulci are normal. There is no acute intracranial hemorrhage or evidence of acute territorial infarction. Neither mass effect, shift of the midline structures, nor abnormal extra-axial fluid collections are shown. Imaged portions of the paranasal sinuses and mastoid air cells are clear. The orbits appear normal. There are no acute fractures of the calvaria or scalp swelling. Impression: No acute intracranial hemorrhage, no evidence of acute territorial infarction or other acute intracranial disease process. ACT 112: Negative or not required by law. Electronically signed by: Deniz Howell M.D. 05/16/2023 8:[address] 05/16/23 19:24 Exam(s): CT LEFT FOOT Without Contrast EXAM: CT Left Lower Extremity Without Intravenous Contrast, Foot CLINICAL HISTORY: Reason for exam: poss osteo. TECHNIQUE: Axial computed tomography images of the left foot without intravenous contrast. CTDI is 24.9 mGy and DLP is 496.75 mGy-cm. Automated exposure control was utilized for the study. A dose lowering technique was utilized adhering to the principles of ALARA. COMPARISON: CT 04/05/2020 FINDINGS: Bones/joints: Pressure lesion subjacent to the first metatarsal head. No erosive changes to suggest acute osteomyelitis. No acute fracture. Chronic healed fracture deformity of the fifth metatarsal neck. Dorsal calcaneal enthesophyte. Partially imaged hardware in the distal fibula. No dislocation. Soft tissues: Pressure lesion subjacent to the first metatarsal head. No soft tissue gas. No radiopaque foreign body. IMPRESSION: Pressure lesion subjacent to the first metatarsal head. No evidence of acute osteomyelitis. Electronically signed by: Leo Dyson MD 05/16/23 20:29 PM Discharge Plan Visit Data Chief Complaint: Confusion Stated Complaint: AMS ED Provider: Yan Steven Discharge Problem: Sepsis, Acute UTI, Cellulitis, Acute hyperglycemia, Acute dehydration, Elevated lactic acid level Patient Disposition: Admitted As Inpatient Condition: Serious Discharge Instructions Interventions: ED Discharge Assessment Last Done: 05/16/23 22:13 Discharge Problem: Sepsis Qualifiers: Sepsis type: sepsis due to unspecified organism Sepsis acute organ dysfunction status: without acute organ dysfunction Qualified Code(s): A41.9 - Sepsis, unspecified organism Cellulitis Qualifiers: Site of cellulitis: extremity Site of cellulitis of extremity: lower extremity Laterality: left Qualified Code(s): L03.116 - Cellulitis of left lower limb
[2023-05-16 19:38] LABS: Appearance Urine Turbid (Clear); Bilirubin Urine Negative (Negative); Blood Urine 2+ (Negative); Color Urine Yellow; Glucose Urine UA 3+ (Negative); Ketones Urine Negative (Negative); Leukocyte Esterase Urine 2+ (Negative); Nitrite Urine Negative (Negative); Protein Urine 1+ (Negative); Urobilinogen Urine Negative (Negative); pH Urine 5.5 (4.5-7.5)
[2023-05-16 19:53] LABS: Alanine Aminotransferase 32 U/L (7-52); Albumin Globulin Ratio 0.8 (0.9-2); Albumin Level 3.6 gm/dl (3.4-5.0); Alkaline Phosphatase 121 U/L (34-104); Anion Gap 11 (3-11); Aspartate Aminotransferase 23 U/L (13-39); BUN Creatinine Ratio 20.5 (10-20); Bilirubin,Total 1.4 mg/dl (0.2-1.0); Blood Urea Nitrogen 30 mg/dl (6-23); Calcium 9.3 mg/dl (8.6-10.3); Carbon Dioxide 27 mmol/L (21-32); Chloride 92 mmol/L (98-107); Est GFR (African American) 39.5 ml/min; Est GFR (Non-African American) 34.1 ml/min; Globulin 4.3 gm/dl (2.5-4.0); Glucose 446 mg/dl (70-99(Fasting)); Potassium 4.6 mmol/L (3.5-5.1); Sodium 130 mmol/L (136-145); Total Protein 7.9 gm/dl (6.0-8.3); Troponin I High Sensitivity 20.2 pg/ml (0-14)
[2023-05-16 19:54] LABS: Bacteria Urine 1+ (Negative); Epithelial Cell Urine 0-5 /lpf (0-5); RBC Urine >30 /hpf (0-4); WBC Urine >30 /hpf (0-5)
[2023-05-16 19:57] LABS: INR 1.1 (0.9-1.1); Partial Thromboplastin Ratio 1.1; Partial Thromboplastin Time 31 Seconds (21-31); Prothrombin Time 12.4 Seconds (9.0-12.0); Thyroid Stimulating Hormone 1.047 uIu/ml (0.300-4.500)
--- NOTE | 2023-05-16 20:04 | CT Scan Report ---
CT head/brain wo con CLINICAL HISTORY: altered Technique: Contiguous axial CT images of the head were acquired from the base of the skull to the rui ashley without intravenous contrast administration. Images were viewed in brain, subdural and bone [facility]. Automated dose lowering techniques and/or adjustment according to patient size were utilized for this exam. Comparison: Comparison is made to CT head 03/01/2022 Findings: The ventricles, basal cisterns, and cerebral sulci are normal. There is no acute intracranial hemorrh age or evidence of acute territorial infarction. Neither mass effect, shift of the midline structures , nor abnormal extra-axial fluid collections are shown. Imaged portions of the paranasal sinuses and mastoid air cells are clear. The orbits appear normal. There are no acute fractures of the calvaria or scalp swelling. Impression: No acute intracranial hemorrhage, no evidence of acute territorial infarction or other acute intracra nial disease process. ACT 112: Negative or not required by law. Electronically signed by: Deniz Howell M.D. 05/16/2023 8:03 PM
[2023-05-16 20:15] LABS: Adenovirus PCR Not Detected (NotDetected); Bordetella parapertussis PCR Not Detected (NotDetected); Bordetella pertussis PCR Not Detected (NotDetected); Chlamydia pneumoniae PCR Not Detected (NotDetected); Coronavirus 229E PCR Not Detected (NotDetected); Coronavirus CoV-2 (COVID19)PCR Not Detected (NotDetected); Coronavirus HKU1 PCR Not Detected (NotDetected); Coronavirus NL63 PCR Not Detected (NotDetected); Coronavirus OC43PCR Not Detected (NotDetected); Human Metapneumovirus PCR Not Detected (NotDetected); Influenza A PCR Not Detected (NotDetected); Influenza B PCR Not Detected (NotDetected); Mycoplasma pneumoniae PCR Not Detected (NotDetected); Parainfluenza Virus 1 PCR Not Detected (NotDetected); Parainfluenza Virus 2 PCR Not Detected (NotDetected); Parainfluenza Virus 3 PCR Not Detected (NotDetected); Parainfluenza Virus 4 PCR Not Detected (NotDetected); Respiratory Syncytial VirusPCR Not Detected (NotDetected); Rhinovirus/Enterovirus PCR Not Detected (NotDetected)
--- NOTE | 2023-05-16 20:18 | History & Physical Report ---
Date of Service May 16, 2023 Assessment & Plan (1) Sepsis: Plan: -Patient is afebrile and has a heart rate below 90. Respiratory rate is elevated at 22 and leukocytosis on labs. -Leukocytosis of 13.2, hemoglobin of 10.9. Of note patient is on prednisone 5 mg daily. -VBG negative. -CMP showed a sodium of 130, a creatinine of 1.46, glucose in the 400s. -Lactate of 3.7 in the ED improved to 2.8 after 2 L bolus. -Troponin peaked at 20.2. -Head CT negative. -Continue on NSS at 75 mL an hour. -CBC and BMP in AM. (2) DAVID (acute kidney injury): Plan: -Creatinine of 1.46 and an elevated BUN. -Received 2 L bolus in the ED. -Continue on NSS at 75 mL an hour. -BMP in the a.m. (3) Chronic ulcer of left foot: Plan: -Chronic ulcer of the left foot which has now started to have weeping and warmth. -Wound culture collected and pending. -MRSA swab pending collection. -CT of the foot showed no active osteomyelitis. -On meropenem at this time. Consider MRSA coverage if wound cultures and or MRSA swab is positive. -Wound care consulted. (4) Recurrent UTI (urinary tract infection): Plan: -Patient was on extended course of Macrobid for UTI. -Previous UTIs grew ESBL. -UA positive for UTI. -Urine cultures pending. -Will start on meropenem at this time. (5) Diabetes mellitus, type 2: Plan: -Hold home medications. -Sliding scale initiated. Pharmacist diabetes management consulted. -Will check hemoglobin A1c in the a.m. -Uncontrolled diabetes in the 400s at time of admission. Most likely leading to further exacerbation of left foot ulcer. -Has extensive peripheral neuropathy. (6) Hypothyroidism: Plan: -Continue home medications. -TSH of 1.047 at time of admission. (7) Gout: Plan: -Continue home medications. (8) Hypertension: Plan: -Continue home medications. (9) Paroxysmal atrial fibrillation: Plan: -On Xarelto, will monitor on telemetry. Plan Fluids: NSS at 75 mL an hour Nutrition: DM 2 and heart healthy Code status: Full code DVT ppx: Continue home Xarelto PT/OT: Ordered Dispo: PCU/telemetry History of Present Illness Chief Complaint: Sepsis and hyperglycemia Primary Care Provider: Reno Peerz MD Patient is a 77-year-old female who presents to the hospital with not feeling well for the past few days. Patient was recently diagnosed with a UTI and started on Macrobid for 2 weeks. She just finished her Macrobid 2 days ago. She has been feeling weak and having chills. Her sugars have been running high. She still continues to have urinary frequency. She also complains of d ischarge on her left foot that started a couple days ago. She also complains of feeling some nausea and lightheadedness. Patient also had some episodes of confusion and states that she was forgetting her date of though this quickly resolved. She has been feeling lightheaded and nauseous as well. On admission, Patient was given 2 L fluid and cefepime. States that she is no longer having any confusion. States that she feels better than still feels weak. Allergies Allergy/AdvReac Type Severity Reaction Status Date / Time sulfamethoxazole Allergy Intermediate Hives Verified 05/16/23 20:35 [From Bactrim] tetanus toxoid, adsorbed Allergy Intermediate LOCALIZED Verified 05/16/23 20:35 REACTION (arm swelling), MADE HER FEEL SICK trimethoprim [From Bactrim] Allergy Intermediate Hives Verified 05/16/23 20:35 amoxicillin AdvReac Intermediate "GOT Verified 05/16/23 20:35 C-DIFF" dalbavancin [From Dalvance] AdvReac Intermediate Vomiting Verified 05/16/23 20:35 minocycline AdvReac Intermediate HEADACHES Verified 05/16/23 20:35 tetracycline AdvReac Intermediate HEADACHES Verified 05/16/23 20:35 Home Medications Medication Instructions Recorded Confirmed Type gabapentin 400 mg capsule 400 mg PO TID 02/19/18 05/16/23 History multivitamin 1 tab PO QAM 02/19/18 05/16/23 History potassium 99 mg tablet 1 tab PO QPM 02/19/18 05/16/23 History cyanocobalamin (B12)-cobamamide 1,000 mcg sublingual QAM 03/12/18 05/16/23 History 5,000 mcg-100 mcg sublingual tablet (B-12 Plus) nitroglycerin 0.4 mg sublingual 0.4 mg sublingual Q5M PRN Chest 03/29/20 05/16/23 Rx tablet (Nitrostat) Pain #25 tabs calcium carbonate 500 mg-vitamin 1 tab PO BID 06/14/20 05/16/23 History D3 5 mcg (200 unit) tablet (Calcium 500 + D) conjugated estrogens 0.625 mg/gram 0.625 mg vaginal 2XWK 03/07/21 05/16/23 History vaginal cream (Premarin) ferrous sulfate 325 mg (65 mg 325 mg PO Q OTHER DAY 05/16/21 05/16/23 History iron) tablet (iron) neomycin-bacitracn Zn-polymyxn 3.5 1 applic topical DIRECTED PRN 10/18/21 05/16/23 History mg-400 unit-5,000 unit top oint pkt skin irritation ascorbic acid (vitamin C) 500 mg 500 mg PO DAILY 05/23/22 05/16/23 History tablet (Vitamin C) prednisone 5 mg tablet 5 mg PO QAM 05/23/22 05/16/23 History rivaroxaban 15 mg tablet (Xarelto) 15 mg PO QDD 05/23/22 05/16/23 History metformin 500 mg tablet 500 mg PO QPM #90 tabs 07/19/22 05/16/23 Rx atorvastatin 80 mg tablet 80 mg PO HS #90 tabs 08/16/22 05/16/23 Rx blood sugar diagnostic (OneTouch #100 ea 11/10/22 04/27/23 Rx Verio test strips) lancets 30 gauge (OneTouch Serina #100 ea 11/10/22 04/27/23 Rx Plus Lancet) levothyroxine 125 mcg tablet 125 mcg PO DAILY #30 tabs 12/05/22 05/16/23 Rx blood-glucose meter (OneTouch #1 ea 12/26/22 04/27/23 Rx Verio Flex Meter) pen needle, diabetic 32 gauge x #100 ea 12/28/22 04/27/23 Rx 5/32" (BD Daly 2nd Gen Pen Needle) pen needle, diabetic 32 gauge x #100 ea 12/29/22 04/27/23 Rx 5/32" (BD Daly 2nd Gen Pen Needle) metoprolol succinate 50 mg 50 mg PO BID #180 tabs 01/29/23 05/16/23 Rx tablet,extended release 24 hr dulaglutide 4.5 mg/0.5 mL 4.5 mg (0.5 mL) subcut WEEKLY #2 mL 04/02/23 05/16/23 Rx subcutaneous pen injector mirabegron 50 mg tablet,extended 50 mg PO DAILY #90 tabs 04/09/23 05/16/23 Rx release 24 hr (Myrbetriq) methenamine hippurate 1 gram tablet 1 g PO BID #180 tabs 04/12/23 05/16/23 Rx nitrofurantoin 100 mg PO BID #28 caps 04/27/23 05/16/23 Rx monohydrate/macrocrystals 100 mg capsule (Macrobid) allopurinol 100 mg tablet 100 mg PO QAM 05/16/23 05/16/23 History amiodarone 200 mg tablet 200 mg PO QAM 05/16/23 05/16/23 History cyclosporine 0.05 % eye drops in a 1 drp OPB Q12H 05/16/23 05/16/23 History dropperette (Restasis) diclofenac sodium 1 % topical gel 2 g topical QID PRN Pain 05/16/23 05/16/23 History duloxetine 30 mg capsule,delayed 30 mg PO QAM 05/16/23 05/16/23 History release esomeprazole magnesium 40 mg 40 mg PO QAM 05/16/23 05/16/23 History capsule,delayed release famotidine 40 mg tablet 40 mg PO QPM 05/16/23 05/16/23 History insulin glargine 100 unit/mL (3 4 unit subcut DIRECTED 05/16/23 05/16/23 History mL) subcutaneous pen (Lantus Solostar U-100 Insulin) triamterene 37.5 1 tab PO QAM 05/16/23 05/16/23 History mg-hydrochlorothiazide 25 mg tablet valacyclovir 500 mg tablet 500 mg PO QPM 05/16/23 05/16/23 History Past Med/Surg History Medical History Sepsis Encounter for colorectal cancer screening Chest pain RE-OCCURING ON OCC/ MOST RECENT LAST WEEK / USED NITRO FOR DENIES CHANGE IN BASELINE OCCURENCE DETAILS PT HAS DISCUSSED PAST OCCURENCES WITH DR WASSERMAN History of colon polyps 8-12/01 were normal and 1 something abdnormal/reason for upcoming colonoscopy Incomplete bladder emptying self cath tid Overactive bladder Wheelchair dependence pt states she can stand and pivot on her own On antibiotic therapy preventative for recurring wound infection to rt foot and recurring UTIs - abx tx through picc line completed 3 - 4 weeks ago current : wound on foot doing really well per pt/no current s/s uti History of ESBL E. coli infection Rectal ulcer hx Arthritis Charcot's joint of foot in type 2 diabetes mellitus Sensorineural hearing loss of both ears Hemorrhoids, internal, with bleeding hx Stress incontinence in female Paroxysmal atrial fibrillation dx 2015 - on xarelto - follows with Dr. 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 03/12/2018. DONE AT [facility]. BLOCK WITH LMA. NO ISSUES. History of dilatation and curettage History of bilateral tubal ligation Charcot's joint of foot RIGHT FOOT (4 SURGERIES TOTAL) History of total knee replacement LEFT History of ankle surgery LEFT History of surgery BLADDER STIMULATOR IMPLANTED IN BACK- not sure if currently working History of bladder repair surgery R/T URINARY LEAKAGE History of colonoscopy History of tooth extraction History of tonsillectomy History of adenoidectomy History of cataract surgery RIGHT/LEFT History of coronary artery bypass graft CABG X 3 (2014) History of cardiac cath 2015= NO STENTS Family History Mother Family hx of colon cancer Cardiac disorder Colorectal cancer Cancer Hypertension Father Cardiac disorder Lung cancer Hypertension Grandmother (Maternal) Stroke Other No family history of adverse response to anesthesia Denies family history of Ovarian cancer Breast cancer Social History Smoking Status: Never smoker Second Hand Exposure: No; Do You Dip or Chew Tobacco: No; Hx Alcohol Use: Yes Alcohol type: wine Alcohol Intake Frequency: Monthly or Less Hx Substance Use: No Preferred Language: Bermudian Communication Ability: Effective Visual Impairment: Limited Hearing Ability: Use of Hearing Aid Ingot Caster Required: No Beliefs That Will Affect Care: None marital status: Current Living Situation: Spouse current occupational status: retired Other Information That Helps Us Care for You: No Feels Safe at Home: Yes Safety Concerns: Feels Safe At This Time Diet: diabetic and regular caffeine: No Do you think of yourself as: straight/heterosexual Gender Identity: Female Assistive Devices: Glasses and Wheelchair Review of Systems Review of Systems: All systems reviewed & are unremarkable except as noted in Subjective Physical Exam Physical Exam: Constitutional: well-appearing, no acute distress HEENT: NCAT, no conjunctival injection CV: regular rhythm, systolic murmur, extremities well-perfused, no LE edema Resp: CTABL, no wheezes/rales/rhonchi appreciated, no increased work of br eathing GI: soft, nondistended, nontender, BS normoactive MSK: no gross deformities appreciated Skin: Discharge on the left foot, left second toe with erythema and foul odor. Erythema spreads up the foot to the distal left leg. Neuro: alert, oriented, no focal neurologic deficit appreciated Results & Data Results & Data Vital Signs (Past 12 Hours) Vital Signs Temp Pulse Pulse Resp BP BP Pulse Ox 05/16/23 20:15 86 22 109/47 L 96 05/16/23 20:03 85 20 103/50 L 98 05/16/23 19:32 94 05/16/23 19:27 84 22 123/52 L 94 05/16/23 19:27 84 22 94 05/16/23 18:57 87 05/16/23 18:39 37.5 C 88 22 150/66 H 94 O2 Del Method 05/16/23 20:15 Room Air 05/16/23 20:03 05/16/23 19:32 Room Air 05/16/23 19:27 Room Air 05/16/23 19:27 Room Air 05/16/23 18:57 05/16/23 18:39 Room Air Supervising Physician Co-Signing Physician Notes Attending addendum: I have physically seen this patient, have supervised the medical residents activities, and agree with the H&P unless as otherwise noted. Assessment and Plan: Sepsis with possible sources recurrent urinary tract infection and draining left foot ulcer- Recurrent urinary tract infection- History of ESBL E. coli, and other multidrug-resistant E. coli History of Enterococcus faecalis Follow urine culture and sensitivity Placed on meropenem 500 mg IV every 8 hours Placed on daptomycin 275 mg IV every 24 hours Draining left foot ulcer- Antibiotics as above Follow wound culture Consult wound care Paroxysmal atrial fibrillation/hypertension- Continue amiodarone, triamterene HCTZ, Xarelto and metoprolol succinate Diabetes mellitus- Continue glargine at adjusted dose Placed on Accu-Cheks with NovoLog SSI Hold metformin, dulaglutide Remaining orders and notations as noted
--- NOTE | 2023-05-16 20:30 | CT Scan Report ---
Exam(s): CT LEFT FOOT Without Contrast EXAM: CT Left Lower Extremity Without Intravenous Contrast, Foot CLINICAL HISTORY: Reason for exam: poss osteo. TECHNIQUE: Axial computed tomography images of the left foot without intravenous contrast. CTDI is 24.9 mGy and DLP is 496.75 mGy-cm. Automated exposure control was utilized for the study. A dose lowering technique was utilized adhering to the principles of ALARA. COMPARISON: CT 04/05/2020 FINDINGS: Bones/joints: Pressure lesion subjacent to the first metatarsal head. No erosive changes to suggest acute osteomyelitis. No acute fracture. Chronic healed fracture deformity of the fifth metatarsal neck. Dorsal calcaneal enthesophyte. Partially imaged hardware in the distal fibula. No dislocation. Soft tissues: Pressure lesion subjacent to the first metatarsal head. No soft tissue gas. No radiopaque foreign body. IMPRESSION: Pressure lesion subjacent to the first metatarsal head. No evidence of acute osteomyelitis. Electronically signed by: Leo Dyson MD 05/16/23 20:29 PM
[2023-05-16] MEDS: SODIUM CHLORIDE 0.9% 1,000 ML IV ONE (20:51)
[2023-05-16] MEDS ORDERED: DEXTROSE 50% 50 ML SYRINGE IV PRN (22:56)
[2023-05-16] MEDS ORDERED: ACETAMINOPHEN 325 MG TAB PO PRN (22:56)
[2023-05-16] MEDS ORDERED: PHARMACY GLYCEMIC MGMT CONSULT PRN ×3 (22:56→23:57)
[2023-05-16] MEDS ORDERED: CARBOHYDRATES FOR HYPOGLYCEMIA PO PRN (22:56)
[2023-05-16] MEDS ORDERED: LANTUS PER UNIT CHARGE SQ SCH (22:56)
[2023-05-16] MEDS ORDERED: GLUCAGON FOR INJ 1 MG VIAL SQ PRN (22:56)
[2023-05-16] MEDS ORDERED: ONDANSETRON INJ 2 MG/ML 2 ML VIAL IV PRN (22:56)
[2023-05-16] MEDS ORDERED: GLUCOSE 10 TAB/TUBE PO PRN (22:56)
[2023-05-16] MEDS ORDERED: GLUCOSE 40% GEL 15 GM TUBE PO PRN (22:56)
[2023-05-16] MEDS ORDERED: INSULIN ASPART PER UNIT CHARGE SC SCH (23:15)
[2023-05-16] MEDS: METOPROLOL SUCC 50MG EXT REL TAB PO SCH (23:35)
[2023-05-16] MEDS: LANTUS PER UNIT CHARGE SQ STA (23:48)
[2023-05-17] MEDS: INSULIN ASPART PER UNIT CHARGE SC SCH (00:07)
[2023-05-17] MEDS: ATORVASTATIN 40 MG TAB PO SCH (00:11)
[2023-05-17] MEDS: GABAPENTIN 400 MG CAP PO SCH (00:11)
[2023-05-17] MEDS: MEROPENEM 500 MG in SYRINGE 0 ML IV SCH (00:12)
[2023-05-17] MEDS ORDERED: INSULIN ASPART PER UNIT CHARGE SC ONE (04:00)
[2023-05-17] MEDS ORDERED: LANTUS PER UNIT CHARGE SQ ONE (04:00)
[2023-05-17] MEDS: LANTUS PER UNIT CHARGE SQ ONE (04:04)
[2023-05-17] MEDS: INSULIN ASPART PER UNIT CHARGE SC ONE (04:04)
[2023-05-17] MEDS: LEVOTHYROXINE SODIUM 125 MCG TABLET PO SCH (05:58)
--- NOTE | 2023-05-17 06:45 | Billing Data ---
Date of Service May 17, 2023 Coding Level of Care Code 31944 INT INP/OBS CARE
[2023-05-17 06:53] LABS: Basophils # (auto) 0.04 K/uL (0.00-0.20); Basophils % (auto) 0.3 %; Eosinophils # (auto) 0.05 K/uL (0.00-0.50); Eosinophils % (auto) 0.4 %; Hematocrit (blood only) 26.9 % (37.0-47.0); Hemoglobin 9.3 g/dl (12.0-16.0); Immature Granulocytes # (auto) 0.23 K/uL (0.01-0.20); Immature Granulocytes % (auto) 1.7 %; Lymphocytes # (auto) 1.78 K/uL (1.20-3.40); Lymphocytes % (auto) 12.8 %; Mean Corpuscular Hemoglobin 32.6 pg (25.0-34.0); Mean Corpuscular Hgb Conc 34.6 g/dL (32.0-36.0); Mean Corpuscular Volume 94.4 fL (80.0-100.0); Mean Platelet Volume 12.6 fL (9.4-12.4); Monocytes % (auto) 10.8 %; Neutrophils # (auto) 10.27 K/uL (1.40-6.50); Platelet Count 175 K/uL (130-400); RDW Coefficient of Variation 14.6 % (11.5-14.5); RDW Standard Deviation 50.1 fL (36.4-46.3); Red Blood Count 2.85 M/uL (4.20-5.40); White Blood Count 13.87 K/ul (4.8-10.8)
--- NOTE | 2023-05-17 06:56 | XRay Report ---
XR chest 1V portable HISTORY: 77 years-old Female weakness acute weakness COMPARISON: 07/18/2022 TECHNIQUE: AP view the chest FINDINGS: Cardiac silhouette is enlarged. Median sternotomy with CABG. No pneumothorax, pleural effusion or pul monary edema. Mild subsegmental bibasilar atelectasis. Bones appear grossly intact. IMPRESSION: 1. Cardiomegaly without acute process. 2. Mild subsegmental bibasilar atelectasis. ACT 112: Negative or not required by law. The above report was generated using voice recognition software. It may contain grammatical, syntax o r spelling errors. Electronically signed by: Alfredito Ruvalcaba M.D. 05/17/2023 6:55 AM
[2023-05-17 07:15] LABS: BUN Creatinine Ratio 25.2 (10-20); Calcium 8.2 mg/dl (8.6-10.3); Creatinine Clr Calc Pharmacy 39.1 ml/min; Est GFR (African American) 48.7 ml/min; Magnesium 1.9 mg/dl (1.7-2.4); Potassium 3.8 mmol/L (3.5-5.1)
[2023-05-17] MEDS ORDERED: INSULIN ASPART PER UNIT CHARGE SC SCH (07:30)
[2023-05-17] MEDS: LANTUS PER UNIT CHARGE SQ SCH ×2 (08:35→21:01)
[2023-05-17] MEDS: predniSONE 5 MG TAB PO SCH (08:36)
[2023-05-17] MEDS: TRIAMTERENE/HCTZ 37.5/25MG TAB PO SCH (08:36)
[2023-05-17] MEDS: PANTOprazole 40 MG TAB PO SCH (08:36)
[2023-05-17] MEDS: allopurinoL 100 MG TAB PO SCH (08:37)
[2023-05-17] MEDS: DULoxetine HCL 30 MG CAP PO SCH (08:37)
[2023-05-17] MEDS: FAMOTIDINE 20 MG TAB PO SCH (08:37)
[2023-05-17] MEDS ORDERED: LANTUS PER UNIT CHARGE SQ SCH ×2 (09:00)
[2023-05-17 09:01] LABS: Estimated Average Glucose 206 mg/dl; Hemoglobin A1C 8.8 % (4.5-5.6)
[2023-05-17] MEDS: DAPTOmycin 275 MG in SYRINGE 0 ML IV SCH (09:54)
--- NOTE | 2023-05-17 10:51 | Hospitalist Progress Note ---
Date of Service May 17, 2023 Assessment & Plan (1) Sepsis: (2) DAVID (acute kidney injury): (3) Chronic ulcer of left foot: (4) Recurrent UTI (urinary tract infection): (5) Diabetes mellitus, type 2: (6) Hypothyroidism: (7) Gout: (8) Hypertension: (9) Paroxysmal atrial fibrillation: Plan Ms. Savage is a 77-year-old female who was admitted to our service for management of sepsis secondary to UTI. Patient also found to be hyperglycemic with a blood sugar above 400 while in the emergency department. Sepsis -Patient with multiple possible sources of infection: UTI, ulcer in her foot, coccygeal pressure ulcer -Patient is febrile (38.3 C) and tachypneic with a rate of 22. No of tachycardia and blood pressures have been slightly low. -Leukocytosis of 13.8 with neutrophilic predominance -Lactate of 3.7 in the ED improved to 2.8 after 2 L bolus. -Head CT negative. -Continue on NSS at 75 mL an hour. -Continue management for UTI as detailed below. -Patient following with ID as an outpatient. Depending on final culture results for blood, urine, and wound, consider consulting infectious disease during this admission. Recurrent UTI -Patient was on extended course of Macrobid for UTI. -Previous UTIs grew ESBL. -UA positive for UTI. -Urine cultures pending. -Will start on meropenem at this time. May change antibiotic course pending final urine culture result. DAVID -Creatinine improved after fluid resuscitation to 1.23 this morning. -Continue on NSS at 75 mL an hour. -Monitor with morning lab Chronic ulcer of left foot -Chronic ulcer of the left foot not currently draining any fluid -Wound culture collected and pending. -MRSA swab negative, but wait for final wound culture results to fully rule out MRSA. -CT of the foot showed no active osteomyelitis. -Orthotics consulted due to poorly fitting [place] boot for charcot foot -Wound care consulted. -Podiatry consulted DM-II, uncontrolled with associated peripheral neuropathy -Hemoglobin A1c 8.8% -Hold home medications. -Sliding scale initiated. Pharmacist diabetes management consulted. Hypothyroidism -Continue home medications. -TSH of 1.047 at time of admission. Gout - Continue home meds HTN -Hold antihypertensives due to current hypotension. A-fib - On Xarelto - Monitor in telemetry Fluids: NSS at 75 mL an hour Nutrition: DM 2 and heart healthy Code status: Full code DVT ppx: Continue home Delbert PT/OT: Ordered Dispo: PCU/telemetry Admission and Anticipated Discharge Date Admission Date: May 16, 2023 Supervising Physician Co-Signing Physician Notes I personally examined the patient and verified porter points of history and exam, discussed case, and agree with decision making and plan documented by Dr. Starks. Patient on IV meropenem empirically for possible cellulitis of the left lower extremity, multiple open wounds in setting of uncontrolled type II diabetes, as well as possible UTI. Awaiting cultures of wounds, blood, and urine. Consider ID consult for guidance of antibiotic regimen given patient's history of multiple infections requiring IV antibiotics, MDR organisms, and allergies. Subjective Ms. Lezama is a 77-year-old female with recent history of a UTI diagnosis which was treated with Macrobid for 2 weeks, which was completed around 2 days ago. Ever since she finished her antibiotics, she has been referring feeling weak as well as some chills nausea and lightheadedness. She does have a history of ESBL UTIs. Given current symptoms and recent UTI, patient went came to the emergency department. In the emergency department patient was tachypneic with a respiratory rate of 22 and blood count showing leukocytosis, therefore patient meeting SIRS criteria was admitted for management of sepsis secondary to UTI. Patient was evaluated at bedside today and she was found awake alert and oriented in all spheres, and in no acute distress. She does refer that she has occasions where she feels feverish and some other occasions where she feels chills but and compared to the time before her admission she is feeling somewhat better. Still endorses having some dysuria and some pelvic pain, as well as some weakness. Denies having chest pain or shortness of breath. Review of Systems Review of Systems: As per HPI Physical Exam Physical Exam: GENERAL: Awake alert and oriented, calm, in no acute distress HEAD: Atraumatic and normocephalic EYES: EOM intact THROAT: Normal to visual inspection CARDIO: Regular rate and rhythm, no rubs murmurs or gallops appreciated RESPIRATORY: Clear to auscultation bilaterally, normal respiratory effort, no respiratory distress GI: Mild to moderate distention, tender to palpation of left lower quadrant and suprapubic region, no peritoneal signs such as guarding or rebound tenderness EXTREMITIES: Upper extremities normal bilaterally, left foot with non- suppurating ulcer in medial side of MTP, dark discoloration of second left toe, right charcot foot, pedal pulses palpated bilaterally, no erythema/warmth/tenderness of bilateral lower extremities. Results & Data Results & Data Vital Signs (Past 12 Hours) Vital Signs Temp Pulse Pulse Resp BP Pulse Ox O2 Del Method 05/17/23 08:11 92 H 05/17/23 07:37 37.8 C H 91 H 24 108/58 L 91 Room Air 05/17/23 03:07 36.7 C 88 17 127/57 L 94 Room Air 05/16/23 23:04 36.5 C 84 18 101/53 L 91 Room Air 05/16/23 22:53 79
--- NOTE | 2023-05-17 12:49 | Electrocardiogram Report ---
Test Reason : Blood Pressure : / mmHG Vent. Rate : 089 BPM Atrial Rate : 089 BPM P-R Int : 184 ms QRS Dur : 090 ms QT Int : 368 ms P-R-T Axes : 048 049 140 degrees QTc Int : 447 ms Normal sinus rhythm Abnormal ECG When compared with ECG of 01-MAR-2022 21:50, Minimal criteria for Anteroseptal infarct are no longer Present T wave inversion now evident in Lateral leads QT has shortened Confirmed by Fritz Goldberg ([id number]) on 05/17/2023 12:49:46 PM Referred By: REFERRED SELF Confirmed By:Julian Goldberg
[2023-05-17] MEDS: INSULIN HUMAN REGULAR PER UNIT 5 UNITS in SYRINGE 4.95 ML IV ONE (13:01)
--- NOTE | 2023-05-17 14:54 | Pharmacy Report ---
Pharmacy Glycemic Short Note 2 - Date of Service May 17, 2023 - Glycemic Short BSG Results (Last 24 hours): 05/16/23 05/16/23 05/16/23 18:35 19:00 22:55 Glucose 446 H* POC Glucose 481 H* 363 H* 05/17/23 05/17/23 05/17/23 03:53 05:52 06:01 Glucose 372 H* POC Glucose 439 H* 398 H* 05/17/23 05/17/23 07:46 11:29 Glucose POC Glucose 358 H* 316 H* OUTPATIENT ANTIDIABETIC REGIMEN: * metformin 500mg QPM (cannot tolerate higher doses d/t diarrhea) * Lantus 13 units SQ QAM * Trulicity 4.5mg/0.5mL SQ weekly (has not been able to get due to supply chain issues) * HbA1c 8.8% 05/17/23 ASSESSMENT: * Nadia is a 77 YOF admitted with general malaise and increased BSGs. She has a history of type 2 diabetes. Pharmacy has been consulted to assist with glycemic management while inpatient. * BSG elevated on admission, home dose of Lantus given last night, BSG elevations persisted into this AM (carbs not covered yesterday evening). Basal insulin at a weight based stress of 2 given early this morning, and then continuing BID. Will change scheduled regimen to allow for a smaller dose in the evening based on BSG to prevent hypoglycemia. * BSGs still elevated at lunchtime, 5 units of IV regular insulin given in addition to Novolog to help bring down BSG values * She is currently on meropenem and daptomycin, her home prednisone 5mg was continued, and she has NS @ 75mL/hr running. * Novolog initated at a weight based stress of 2.5, will tighten this evening if BSGs remain elevated. PLAN FOR INPATIENT GLYCEMIC CONTROL: * Hold outpatient diabetes medications * Basal insulin * Lantus 4 units SQ x1 last night * Lantus 15 units SQ x1 early this morning * Lantus 13 units SQ QAM * Lantus 0-13 units SQ HS (see eMAR for additional details) * Bolus insulin * NovoLog per scale ACHS or Q6hrs while NPO * Goal Range: Low 110 mg/dL - High 140 mg/dL * Correction Factor: 25 mg/dL/unit * Nutritional / Prandial insulin per carb ratio of 1 unit per 10 grams CHO consumed
--- OUTSIDE RECORDS SUMMARY | 2023-05-17 16:35 | External Medical Summary | Continuity of Care Document ---
Author Name Unknown Organization [id number] Address [address] [place] [id number] Care Team Providers Care Server Security Administrator Name Role Phone Reno Perez Primary Care Physician [phone] Encounter [facility] [id number] Date(s): 05/07/23 - 05/07/23 [facility] Medicine [address] [place] [address] Encounter Diagnosis DM polyneuropathy(Discharge Diagnosis) - 05/07/23 Discharge Disposition: Home or Self Care Attending Physician: MD Hallman Gregory G Allergies, Adverse Reactions, Alerts Substance Reaction Severity Status tetracycline headaches Active amoxicillin increase risk of c diff Acti ve minocycline New onset of headaches Activ e tetanus toxoid upset stomac Active Tylenol with Codeine Nausea Active Bactrim hives Active Dalvance vomiting Active Assessment and Plan Extracted from: Title:Follow Up Visit Author:MD Hallman Gregory G Date:05/07/23 1.DM polyneuropathy 1 year supply of gabapentin was renewed for her. We discussed about functional issues with the handsprovided her withresources to order Buttonerlong handled shoe horn and build up utensils to help her functionallyand she will return for1 year follow-up Immunizations Given and Recorded Vaccine Date Status Refusal Reason pneumococcal 23-valent vaccine 11/16/11 Given Medications allopurinol 100 mg oral tablet Start: 04/06/17 13:01:00, 1 tab, PO, Daily Start Date: 04/06/17 Status: Ordered amiodarone 200 mg oral tablet Start: 10/08/20 13:27:00 EDT, 1 tab, PO, bid Start Date: 10/08/20 Status: Ordered ascorbic acid 500 mg oral capsule Start: 07/17/22 16:03:00 EDT, 1 cap, PO, Daily Start Date: 07/17/22 Status: Ordered Calcium 500+D oral tablet, chewable Start: 12/25/16 11:44:00, 1 tab, PO, Daily Start Date: 12/25/16 Status: Ordered DULoxetine 30 mg oral delayed release capsule Start: 07/01/20 11:11:00 EDT, 1 cap, PO, Daily Start Date: 07/01/20 Status: Ordered esomeprazole 40 mg oral delayed release capsule Start: 07/01/20 11:11:00 EDT, 1 cap, PO, Daily Start Date: 07/01/20 Status: Ordered famotidine 40 mg oral tablet TAKE 1 TABLET BY MOUTH EVERY DAY Start Date: 07/17/22 Status: Ordered gabapentin 400 mg oral capsule Start: 05/07/23 9:28:00 EST, See Instructions, Disp# 270 cap, Refills: 3, TAKE 1 CAPSULE 3 TIMES A DAY, Pharmacy: [facility]/pharmacy #[id number] Start Date: 05/07/23 Status: Ordered hydroCHLOROthiazide-triamterene 25 mg-37.5 mg oral capsule Start: 05/21/19 10:47:00 EST, 1 cap, PO, Daily Start Date: 05/21/19 Status: Ordered levothyroxine Start: 07/02/15 10:35:00 EDT, 125 mcg =, PO, Daily Start Date: 07/02/15 Status: Ordered Lipitor 80 mg oral tablet Start: 12/05/10 10:25:00, 1 tab, PO, qhs Start Date: 12/05/10 Status: Ordered Lotrisone 1%-0.05% topical cream Start: 05/22/22 15:24:00 EST, 1 appl, topical, bid, Disp# 45 g, Refills: 0, THin layer under rbeasts up to BID for up to 2 weeks, Pharmacy: [facility]/pharmacy #[id number] Start Date: 05/22/22 Status: Ordered metFORMIN 500 mg oral tablet, extended release Start: 07/05/16 10:33:00 EDT, 1 tab, PO, Daily Start Date: 07/05/16 Status: Ordered metoprolol succinate 50 mg oral tablet, extended release Start: 05/21/19 10:45:00 EST, 1 tab, PO, Daily Start Date: 05/21/19 Status: Ordered multivitamin Start: 05/08/17 13:00:00, 1 tab, PO, Daily Start Date: 05/08/17 Status: Ordered Myrbetriq 50 mg oral tablet, extended release Start: 04/07/21 13:17:00 EST Start Date: 04/07/21 Status: Ordered Nasacort AQ Start: 12/25/16 11:45:00, 1 spray, Daily Start Date: 12/25/16 Status: Ordered Neosporin Plus Maximum Strength Ointment Start: 11/17/14 9:56:00, 1 applicator, topical, Daily Start Date: 11/17/14 Status: Ordered Nitrostat 0.4 mg sublingual tablet Start: 11/17/14 9:57:00, 1 tab, SL, q5min, PRN: as needed for chest pain Start Date: 11/17/14 Status: Ordered potassium chloride Start: 06/27/17 10:39:00 EDT, 99 mg =, PO, Daily Start Date: 06/27/17 Status: Ordered predniSONE 5 mg oral tablet Start: 01/27/19 13:18:00 EST, 1 tab, PO, Daily Start Date: 01/27/19 Status: Ordered Restasis 0.05% ophthalmic emulsion Start: 07/17/22 16:02:00 EDT, 1 drop, both eyes, q12h Start Date: 07/17/22 Status: Ordered triamcinolone 0.1% topical cream Start: 07/01/20 11:28:00 EDT, 1 appl, topical, bid, Disp# 30 g, Refills: 2, To red itchy rash arms,elgs trunk BID PRN, Pharmacy: [facility]/pharmacy #[id number] Start Date: 07/01/20 Status: Ordered Trulicity Pen 1.5 mg/0.5 mL subcutaneous solution INJECT 1.5MG WEEKLY Start Date: 02/25/18 Status: Ordered unknown medication Start: 02/25/19 14:41:00 EST, Methenamine 1gm daily Start Date: 02/25/19 Status: Ordered Valtrex Start: 08/27/09 12:39:51, 500 mg =, PO, Daily, Refills: 0, current medication from another provider Start Date: 08/27/09 Status: Ordered Vitamin B12 Start: 05/08/17 13:00:00, 1,000 mcg =, PO, Daily Start Date: 05/08/17 Status: Ordered Voltaren 1% topical gel Start: 01/30/18 9:27:00 EST, 4 g =, topical, qid, Disp# 100 g, Refills: 3, PRN: Pain, Pharmacy: [facility]/pharmacy #[id number] Start Date: 01/30/18 Stop Date: 05/30/18 Status: Ordered Xarelto 15 mg oral tablet Start: 11/17/21 15:02:00 EDT, 30 each, TAKE 1 TABLET BY MOUTH DAILY MUST ADMINISTER WITH EVENING MEAL Start Date: 11/17/21 Status: Ordered ZyrTEC Start: 10/08/20 13:27:00 EDT Start Date: 10/08/20 Status: Ordered Mental Status 05/07/23 Barriers to Learning one year None evide nt Mandatory Health Literacy Documentation Yes Health Literacy Communication Barriers N ever Primary Language [place] Citizen Problem List Condition Confirmation Course Effective Dates Status Health Status Informant Androgenic alopecia Confirmed Active Multiple pigmented nevi Confirmed Active Multiple nevi Confirmed Active Calcific supraspinatus tendonitis Confirmed Active Bilateral carpal tunnel syndrome Confirmed Active Cervical disc disease Confirmed Active Right cervical radiculopathy Confirmed Active Changing skin lesion Confirmed Active Charcot's joint, right ankle and foot Confirmed Active Charcot's joint of foot Confirmed Active Cyst of skin Confirmed Active Diabetes Confirmed Active DM polyneuropathy Confirmed Active DN - Dysplastic nevus Confirmed Active Dysplastic nevus Confirmed Active Epidermoid cyst Confirmed Active Epidermal cyst Confirmed Active Family history of skin cancer 1 Confirmed Active Heart disease Confirmed Active History of dysplastic nevus Confirmed Active S/P total knee replacement Confirmed Active Hypertension Confirmed Active Thyroid activity decreased Confirmed Active Fecal incontinence Confirmed Active Dermatitis Confirmed Active Intertrigo Confirmed Active IBS (irritable bowel syndrome) Confirmed Active Hepatomegaly Confirmed Active Elevated liver transaminase level Confirmed Active Chronic anticoagulation Confirmed Active Melanocytic nevus of trunk Confirmed Active Actinic keratoses Confirmed Active Neck pain Confirmed Active Neoplasm of uncertain behavior of skin Confirmed Active Tinea unguium Confirmed Active Numbness and tingling of foot Confirmed Active Pressure ulcer Confirmed Active Pressure ulcer Confirmed Active Psoriatic arthritis Confirmed Active Rectal mass Confirmed Active Rectal prolapse Confirmed Active Rectal prolapse Confirmed Active Recurrent urinary tract infection Confirmed Active Urinary retention Confirmed Active Left rotator cuff tear Confirmed Active Seborrheic keratosis Confirmed Active Seborrheic keratoses Confirmed Active Senile hyperkeratosis Confirmed Active Chest skin lesion Confirmed Active Spondylolisthesis of cervical region Confirmed Active Hepatic steatosis Confirmed Active Swelling of left elbow Confirmed Active Common wart Confirmed Active 1melanoma Diagnosis Diagnosis Type Effective Dates Health Status Clinical Service Informant DM polyneuropathy Discharge Diagnosis 05/07/23 Procedures Procedure Date Related Diagnosis Body Site Status Ultrasound--abdomen 1 07/24/22 Com pleted Colonoscopy 2, 3 05/30/22 Complete d Shave biopsy and cauterization of skin 01/26/22 Completed Colonoscopy 4, 5 05/20/21 Complete d Shave biopsy of skin 10/08/20 Comp leted Shave biopsy 07/01/20 Completed Flexible sigmoidoscopy 6 02/16/20 Completed Excision 05/27/19 Completed Bone density scan 05/26/19 Complet ed Shave biopsy and cauterisation of skin 03/18/19 Completed Surgery 7 10/01/18 Completed Surgery 8 08/23/18 Completed Excision 08/15/18 Completed Surgery 9 03/12/18 Completed Surgery 10 05/23/17 Completed Surgery 11 05/09/17 Completed Right foot surgery 12 01/01/17 Com pleted Laser eye surgery 07/06/16 Complet ed Laser eye surgery-right 06/01/16 C ompleted Right Foot Surgery 13 03/20/16 Com pleted Charcot arthropathy of midfo ot, Right 14 03/17/16 Completed Colonoscopy 15 11/22/15 Completed Shave biopsy of skin 07/02/15 Comp leted Bilateral Cataract Surgery 2015 Completed Coronary artery bypass graft ing x3 with left internal mammary artery 17 11/18/14 Completed Colonoscopy 11/12/14 Completed Cardiac catheterization 09/11/14 C ompleted Left Knee replacement 18 11/14/11 Completed Left knee surgery - smashed 2011 Completed Excision of Pilonidal cyst / & Hemorrhoidectomy 2009 Completed Left ankle surgery 2005 Com pleted Bladder Repair 1989 Completed Tubal ligation 1984 Completed Tooth extraction, multiple, [place] Teeth 1961 Completed Tonsillectomy with adenoidectomy 1950 Completed Procedure 21 Completed Shoulder Completed 11) Hepatomegaly demonstrating fatty change. 2) Mildly distended gallblader. No gallbladder wall thickeing or gallstones. 3) A 1.2 cm right renal cyst. 2Multiple 6 to 11 mm polyps in the transverse colon, at the heaptic flexure and in the ascending colon, removed with hot snare. Resected and retreived. Diverticulosis in the sigmoid colon, in the descending colon, in the transverse colon and in the ascending colon. Congested and erythematous mucosa in the rectum, biopsied. 3Pathology results: A) Colon, ascending, polypectomy: Tubular adenoma B) Colon, hepatic flexure, polypectomy: Sessile serrated adenoma C) Colon, transverse, polyp, polypectomy: Multiple fragments of tubular adenoma D) REctum, mass, biopsy: Acute proctitis with ulceration. See comment 4Diverticulosis from sigmoid to ascending colon. Four 6 to 8 mm polyps in the ascending colon, removed with a cold snare. Resected and retrieved. One 6mm polyp at the ileocecal valve, removed with a cold snare. Resected and retrieved. Three 3 to 6 mm polyps in the cecum, removed with a cold snare. Complete resection. Partial retrieval. Redundant colon. The examination was otherwise normal on direct and retroflexion views. Return 1 year for surveillance. 5Recall colonoscopy recommended for 1 year (04/2022) 6Preparation of the colon was fair. Diverticulosis in the sigmoid colon. Blood in the rectum. A single ulcer in the distal rectum. No specimens collected. 7left shoulder arthroscopy 8removal of hardware right foot 9right shoulder arthroscopy 10OPERATION PERFORMED: Stage 2 InterStim -- placement of implantable pulse generator. 111. Stage I InterStim -- placement of tined leads in the S3 foramen. 2. Fluoroscopic guidance for lead placement. 3. Complex programming. 12right foot surgery 13Right foot 14surgery 15Pathology results: A) Colon, ascending, polypectomy: Severely cauterized colonic mucosa with features suggestive of hyperplastic polyp B) Colon, sigmoid, polypectomy: Tubular adenoma 16Left eye July 2015 Right eye September 2015 17triple 18left 19left 20left ankle 21left foot- membrane wrap Social History Social History Type Response Smoking Status Never smoked cigaret afshan Sex Female Ortho Outpt Note * MD Lexx, Chandu Schrader: PERFORM Event Display: Ortho Outpt Note Authored Date: [id number] Chief Complaint Left hand and wrist pain. Feels like she can't use it as much to do things. Pain 4/6/3 Primary Care Provider MD Ana, Reno Franks Subjective Patient is a 77-year-old femalewho returns today for follow-up. She reports thatshe has been having more functional difficulties with her fingers related to arthritis carpal tunnel and Dupuytren's. 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 No numbness is noted. Assessment/Plan 1.DM polyneuropathy 1 year supply of gabapentin was renewed for her. We discussed about functional issues with the handsprovided her withresources to order Buttonerlong handled shoe horn and build up utensils tohelp her functionallyand she will return for1 year follow-up Electronic Signature on File CC: Reno Perez MD [facility] [address] [place] [id number] * Electronically Reviewed/Signed by: Chandu Hallman MD Author Signature Dt/Tm:05/07/2023 09:37 AM Adult Protective Caseworker of Orthopaedics & Rehabilitation and Physical Medicine & Rehabilitation [facility] Patient Care team information Care Team Personnel Name: RIZWANA Jones, Shakila Duong Position: Physician Parent Trainer - Orthopaedic Surg Member Role: Lifetime Relationship Address: Address: [address] [facility] [address] [place] [address] [place] Name: KEILA Mcgarry Anna L Position: Nurse Pract - Female Pelvic Med Member Role: Lifetime Relationship Address: Address: [address] [facility] [address] [place] [address] [place] Name: MD Perez John J Position: Referring DIRECT Member Role: Primary Care Provider Address: Address: [facility] [address] [place] [id number] [place] Care Team Related Persons Name: ALYCIA DING Address: [address] [place] [id number]
[2023-05-17] MEDS: RIVAROXABAN 15 MG TAB PO SCH (16:50)
[2023-05-17] MEDS: INSULIN HUMAN REGULAR PER UNIT 7 UNITS in SYRINGE 6.93 ML IV ONE (20:58)
--- NOTE | 2023-05-17 21:22 | Orthopedic Consultation ---
Date of Consultation May 17, 2023 Assessment & Plan (1) Diabetic ulcer of left foot: Patient seen and evaluated in S236-1. A thorough evaluation of bilateral foot and ankle wounds was done in detail. Reviewed CT images and findings of left foot. No gas, no signs of osseous involvement. Awaiting wound cultures. Patient will benefit from bedside debridement. Plan for bedside debridement on 05/18/23. Thank you for allowing me to participate in the care of this Patient. Will continue to follow while Patient remains in house. (2) Cellulitis: (3) Diabetes mellitus, type 2: History of Present Illness Attending Physician: Samanta Barillas, History of Present Illness Patient is a 77-year-old female who is seen at bedside in room S236-1 for bilateral foot and ankle diabetic ulcers. Patient has a past medical history significant for Sepsis, Chest pain, History of colon polyps, Wheelchair dependence, Rectal ulcer, Arthritis, Charcot's joint of foot in type 2 diabetes mellitus, hearing loss of both ears, Hemorrhoids, internal, with bleeding, incontinence, atrial fibrillation, Diabetes mellitus with diabetic polyneuropathy, CAD (coronary artery disease), Fibromyalgia, Psoriatic arthritis, Osteoarthritis, Gout, IBS (irritable bowel syndrome), Diabetes mellitus, type 2, , Hypothyroidism, Anemia, Myocardial Infarction, Hypertension, and Hyperlipidemia. Patient presented to [facility] Emergency Department on 05/16/23 with with complaint of feeling weak, having chills, and elevated blood sugar. Patient was recently diagnosed with a UTI and started on Macrobid for 2 weeks. Patient notes continued confusion and forgetting things. For example when questioned about past medical events Patient answered she had a previous surgery in 1916. Allergies Allergy/AdvReac Type Severity Reaction Status Date / Time sulfamethoxazole Allergy Intermediate Hives Verified 05/16/23 20:35 [From Bactrim] tetanus toxoid, adsorbed Allergy Intermediate LOCALIZED Verified 05/16/23 20:35 REACTION (arm swelling), MADE HER FEEL SICK trimethoprim [From Bactrim] Allergy Intermediate Hives Verified 05/16/23 20:35 amoxicillin AdvReac Intermediate "GOT Verified 05/16/23 20:35 C-DIFF" dalbavancin [From Dalvance] AdvReac Intermediate Vomiting Verified 05/16/23 20:35 minocycline AdvReac Intermediate HEADACHES Verified 05/16/23 20:35 tetracycline AdvReac Intermediate HEADACHES Verified 05/16/23 20:35 Home Medications Medication Instructions Recorded Confirmed Type gabapentin 400 mg capsule 400 mg PO TID 02/19/18 05/16/23 History multivitamin 1 tab PO QAM 02/19/18 05/16/23 History potassium 99 mg tablet 1 tab PO QPM 02/19/18 05/16/23 History cyanocobalamin (B12)-cobamamide 1,000 mcg sublingual QAM 03/12/18 05/16/23 History 5,000 mcg-100 mcg sublingual tablet (B-12 Plus) nitroglycerin 0.4 mg sublingual 0.4 mg sublingual Q5M PRN Chest 03/29/20 05/16/23 Rx tablet (Nitrostat) Pain #25 tabs calcium carbonate 500 mg-vitamin 1 tab PO BID 06/14/20 05/16/23 History D3 5 mcg (200 unit) tablet (Calcium 500 + D) conjugated estrogens 0.625 mg/gram 0.625 mg vaginal 2XWK 03/07/21 05/16/23 History vaginal cream (Premarin) ferrous sulfate 325 mg (65 mg 325 mg PO Q OTHER DAY 05/16/21 05/16/23 History iron) tablet (iron) neomycin-bacitracn Zn-polymyxn 3.5 1 applic topical DIRECTED PRN 10/18/21 05/16/23 History mg-400 unit-5,000 unit top oint pkt skin irritation ascorbic acid (vitamin C) 500 mg 500 mg PO DAILY 05/23/22 05/16/23 History tablet (Vitamin C) prednisone 5 mg tablet 5 mg PO QAM 05/23/22 05/16/23 History rivaroxaban 15 mg tablet (Xarelto) 15 mg PO QDD 05/23/22 05/16/23 History metformin 500 mg tablet 500 mg PO QPM #90 tabs 07/19/22 05/16/23 Rx atorvastatin 80 mg tablet 80 mg PO HS #90 tabs 08/16/22 05/16/23 [facility] 11/10/22 04/27/23 Rx Verio test strips) lancets 30 gauge (My Point...ExactlyArminuch Serina #100 ea 11/10/22 04/27/23 Rx Plus Lancet) levothyroxine 125 mcg tablet 125 mcg PO DAILY #30 tabs 12/05/22 05/16/23 Rx blood-glucose meter (OneTouch #1 ea 12/26/22 04/27/23 Rx Verio Flex Meter) pen needle, diabetic 32 gauge x #100 ea 12/28/22 04/27/23 Rx 5/32" (BD Daly 2nd Gen Pen Needle) pen needle, diabetic 32 gauge x #100 ea 12/29/22 04/27/23 Rx 5/32" (BD Daly 2nd Gen Pen Needle) metoprolol succinate 50 mg 50 mg PO BID #180 tabs 01/29/23 05/16/23 Rx tablet,extended release 24 hr dulaglutide 4.5 mg/0.5 mL 4.5 mg (0.5 mL) subcut WEEKLY #2 mL 04/02/23 05/16/23 Rx subcutaneous pen injector mirabegron 50 mg tablet,extended 50 mg PO DAILY #90 tabs 04/09/23 05/16/23 Rx release 24 hr (Myrbetriq) methenamine hippurate 1 gram tablet 1 g PO BID #180 tabs 04/12/23 05/16/23 Rx nitrofurantoin 100 mg PO BID #28 caps 04/27/23 05/16/23 Rx monohydrate/macrocrystals 100 mg capsule (Macrobid) allopurinol 100 mg tablet 100 mg PO QAM 05/16/23 05/16/23 History amiodarone 200 mg tablet 200 mg PO QAM 05/16/23 05/16/23 History cyclosporine 0.05 % eye drops in a 1 drp OPB Q12H 05/16/23 05/16/23 History dropperette (Restasis) diclofenac sodium 1 % topical gel 2 g topical QID PRN Pain 05/16/23 05/16/23 History duloxetine 30 mg capsule,delayed 30 mg PO QAM 05/16/23 05/16/23 History release esomeprazole magnesium 40 mg 40 mg PO QAM 05/16/23 05/16/23 History capsule,delayed release famotidine 40 mg tablet 40 mg PO QPM 05/16/23 05/16/23 History insulin glargine 100 unit/mL (3 4 unit subcut DIRECTED 05/16/23 05/16/23 History mL) subcutaneous pen (Lantus Solostar U-100 Insulin) triamterene 37.5 1 tab PO QAM 05/16/23 05/16/23 History mg-hydrochlorothiazide 25 mg tablet valacyclovir 500 mg tablet 500 mg PO QPM 05/16/23 05/16/23 History Patient History Medical History Sepsis Encounter for colorectal cancer screening Chest pain RE-OCCURING ON OCC/ MOST RECENT LAST WEEK / USED NITRO FOR DENIES CHANGE IN BASELINE OCCURENCE DETAILS PT HAS DISCUSSED PAST OCCURENCES WITH DR OROPEZA History of colon polyps -12/01 were normal and 1 something abdnormal/reason for upcoming colonoscopy Incomplete bladder emptying self cath tid Overactive bladder Wheelchair dependence pt states she can stand and pivot on her own On antibiotic therapy preventative for recurring wound infection to rt foot and recurring UTIs - abx tx through picc line completed 3 - 4 weeks ago current : wound on foot doing really well per pt/no current s/s uti History of ESBL E. coli infection Rectal ulcer hx Arthritis Charcot's joint of foot in type 2 diabetes mellitus Sensorineural hearing loss of both ears Hemorrhoids, internal, with bleeding hx Stress incontinence in female Paroxysmal atrial fibrillation dx 2015 - on xarelto - follows with Dr. 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 03/12/2018. DONE AT [facility]. BLOCK WITH LMA. NO ISSUES. History of dilatation and curettage History of bilateral tubal ligation Charcot's joint of foot RIGHT FOOT (4 SURGERIES TOTAL) History of total knee replacement LEFT History of ankle surgery LEFT History of surgery BLADDER STIMULATOR IMPLANTED IN BACK- not sure if currently working History of bladder repair surgery R/T URINARY LEAKAGE History of colonoscopy History of tooth extraction History of tonsillectomy History of adenoidectomy History of cataract surgery RIGHT/LEFT History of coronary artery bypass graft CABG X 3 (2015) History of cardiac cath 2015= NO STENTS Family History Mother Family hx of colon cancer Cardiac disorder Colorectal cancer Cancer Hypertension Father Cardiac disorder Lung cancer Hypertension Grandmother (Maternal) Stroke Other No family history of adverse response to anesthesia Denies family history of Ovarian cancer Breast cancer Social History Smoking Status: Never smoker Second Hand Exposure: No; Do You Dip or Chew Tobacco: No; Hx Alcohol Use: Yes Alcohol type: wine Alcohol Intake Frequency: Monthly or Less Hx Substance Use: No Preferred Language: Indonesian Communication Ability: Effective Visual Impairment: Limited Hearing Ability: Use of Hearing Aid Transfer Station Operator Required: No Beliefs That Will Affect Care: None marital status: Current Living Situation: Spouse current occupational status: retired Other Information That Helps Us Care for You: No Feels Safe at Home: Yes Safety Concerns: Feels Safe At This Time Diet: diabetic and regular caffeine: No Do you think of yourself as: straight/heterosexual Gender Identity: Female Assistive Devices: Special Shoe and Wheelchair Review of Systems Review of Systems: All systems reviewed & are unremarkable except as noted in HPI & below Physical Exam Constitutional: cooperative and comfortable Eyes: normal visual singh by confrontation Neck: normal visual inspection and trachea midline Respiratory: normal respiratory effort Cardiovascular: Vessels: posterior tibial pulses present and dorsalis pedis pulses present Musculoskeletal: Extremities: + foot abnormality (Rocker bottom derformity consistent with Charcot Arthropathy) Right Skin: + lesion (Left Sub-met 1 hyperkeratotic lesion), + ulcer (Right Lateral ankle full thickness ulcer, ), + wound (Left second DIPJ ulcer) and + erythema (Bilateral feet periwound) Neurologic: Absent Epicritic sensation Psychiatric: Orientation: oriented to person and cooperative Results & Data Vital Signs (Past 12 Hours) Vital Signs Temp Pulse Pulse Resp BP Pulse Ox O2 Del Method 05/17/23 19:00 37.0 C 89 18 112/62 99 Room Air 05/17/23 15:51 89 05/17/23 14:55 38.0 C H 87 18 110/57 L 99 Room Air 05/17/23 11:40 38.3 C H 88 22 108/63 91 Room Air Diagnostic Findings [place], [place] [phone] CT Scan Report Patient: KATY DING Admit Date: 05/16/23 MR#: [id number] Address1: [facility] Acct ID:[id number] Address2: Date: 1945 [facility] Zip[facility] [place] [address] Age: 77 Location: ED Sex: F Room/Bed: Att Phy: Diagnosis: AMS Gricelda Phy: Reno Perez MD Service Date: 05/16/23 Fam Phy: Interpreting Phy: Leo Dyson MDAdmit Phy: Ordering Phy: Yan Steven M.D. cc: ~ Exam(s): CT LEFT FOOT Without Contrast EXAM: CT Left Lower Extremity Without Intravenous Contrast, Foot CLINICAL HISTORY: Reason for exam: poss osteo. TECHNIQUE: Axial computed tomography images of the left foot without intravenous contrast. CTDI is 24.9 mGy and DLP is 496.75 mGy-cm. Automated exposure control was utilized for the study. A dose lowering technique was utilized adhering to the principles of ALARA. COMPARISON: CT 04/05/2020 FINDINGS: Bones/joints: Pressure lesion subjacent to the first metatarsal head. No erosive changes to suggest acute osteomyelitis. No acute fracture. Chronic healed fracture deformity of the fifth metatarsal neck. Dorsal calcaneal enthesophyte. Partially imaged hardware in the distal fibula. No dislocation. Soft tissues: Pressure lesion subjacent to the first metatarsal head. No soft tissue gas. No radiopaque foreign body. IMPRESSION: Pressure lesion subjacent to the first metatarsal head. No evidence of acute osteomyelitis. Electronically signed by: Leo Dyson MD 05/16/23 20:29 PM Dictated: 05/16/232028 Transcribed: 05/16/232028 (2) Cellulitis Laterality: left Site of cellulitis: extremity Site of cellulitis of extrem ity: lower extremity Qualified Code(s): L03.116 - Cellulitis of left lower limb
[2023-05-18] MEDS: INSULIN ASPART PER UNIT CHARGE SC SCH (00:01)
[2023-05-18] MEDS: LANTUS PER UNIT CHARGE SQ SCH (08:38)
[2023-05-18] MEDS ORDERED: LANTUS PER UNIT CHARGE SQ SCH (09:00)
[2023-05-18 09:37] LABS: Basophils # (auto) 0.05 K/uL (0.00-0.20); Basophils % (auto) 0.3 %; Eosinophils # (auto) 0.07 K/uL (0.00-0.50); Eosinophils % (auto) 0.4 %; Hematocrit (blood only) 27.9 % (37.0-47.0); Hemoglobin 9.2 g/dl (12.0-16.0); Immature Granulocytes # (auto) 0.26 K/uL (0.01-0.20); Immature Granulocytes % (auto) 1.6 %; Lymphocytes # (auto) 2.19 K/uL (1.20-3.40); Lymphocytes % (auto) 13.7 %; Mean Corpuscular Hemoglobin 31.6 pg (25.0-34.0); Mean Corpuscular Volume 95.9 fL (80.0-100.0); Mean Platelet Volume 12.2 fL (9.4-12.4); Monocytes % (auto) 12.5 %; Neutrophils # (auto) 11.38 K/uL (1.40-6.50); Neutrophils % (auto) 71.5 %; Platelet Count 178 K/uL (130-400); RDW Coefficient of Variation 14.7 % (11.5-14.5); RDW Standard Deviation 50.8 fL (36.4-46.3); Red Blood Count 2.91 M/uL (4.20-5.40); White Blood Count 15.95 K/ul (4.8-10.8)
[2023-05-18 09:53] LABS: Albumin Globulin Ratio 0.8 (0.9-2); Albumin Level 2.9 gm/dl (3.4-5.0); BUN Creatinine Ratio 20.2 (10-20); Bilirubin,Total 1.8 mg/dl (0.2-1.0); Calcium 7.8 mg/dl (8.6-10.3); Creatinine Clr Calc Pharmacy 42.1 ml/min; Est GFR (African American) 53.3 ml/min; Globulin 3.5 gm/dl (2.5-4.0); Potassium 3.9 mmol/L (3.5-5.1); Total Protein 6.4 gm/dl (6.0-8.3)
--- NOTE | 2023-05-18 10:53 | XRay Report ---
KUB HISTORY: Acute generalized abdominal pain generalized abdominal pain; constipation COMPARISON: Abdominal ultrasound 07/24/2022 FINDINGS: Nonobstructive bowel gas pattern. Renal shadows are obscured by bowel gas. Moderate colonic fecal retention. A battery pack projects over the right abdomen with stimulator lead projected over the sacrum. No renal calculi. No ureteral calculi. No pneumoperitoneum or pneumatosis. Scoliotic cur vature of the lumbar spine with multilevel degenerative changes. There is moderate osteoarthritis of the hips. No fracture. IMPRESSION: 1. Nonobstructive bowel gas pattern. 2. Moderate fecal retention. ACT 112: Negative or not required by law. The above report was generated using voice recognition software. It may contain grammatical, syntax o r spelling errors. Electronically signed by: Alfredito Ruvalcaba M.D. 05/18/2023 10:51 AM
--- NOTE | 2023-05-18 12:59 | Hospitalist Progress Note ---
Date of Service May 18, 2023 Assessment & Plan (1) Sepsis: (2) DAVID (acute kidney injury): (3) Chronic ulcer of left foot: (4) Recurrent UTI (urinary tract infection): (5) Diabetes mellitus, type 2: (6) Hypothyroidism: (7) Gout: (8) Hypertension: (9) Paroxysmal atrial fibrillation: Plan Ms. Savage is a 77-year-old female who was admitted to our service for management of sepsis secondary to UTI. Patient also found to be hyperglycemic with a blood sugar above 400 while in the emergency department. Sepsis -Patient with multiple possible sources of infection: UTI, ulcer in her foot, coccygeal pressure ulcer -No fevers recorded today and vital signs have remained stable. Blood pressures remain on the soft side. -Leukocytosis of 15.9 with neutrophilic predominance -Continue on NSS at 75 mL an hour. -Continue management for UTI and care for wounds, as detailed below Recurrent UTI -Patient was on extended course of Macrobid for UTI. -Previous UTIs grew ESBL. -UA positive for UTI. -Urine cultures growing likely normal radha. -Continue Meropenem to complete 3 days and may narrow coverage tomorrow. Abdominal pain - Patient with new generalized abdominal tenderness - She has not been able to have a bm in a few days - KUB without obstruction but showing moderate fecal burden - Will order miralax tid DAVID -Creatinine improved to 1.14 this morning, which is near patient's baseline. -Continue on NSS at 75 mL an hour. -Monitor with morning lab Chronic ulcer of left foot -Chronic ulcer of the left foot not currently draining any fluid -Wound culture collected and pending. -MRSA swab negative, but wait for final wound culture results to fully rule out MRSA. May start Daptomycin if positive for MRSA. -CT of the foot showed no active osteomyelitis. -Orthotics consulted due to poorly fitting KETCHIKAN boot for charcot foot -Wound care consulted. -Podiatry consulted S/p bedside debridement DM-II, uncontrolled with associated peripheral neuropathy -Hemoglobin A1c 8.8% -Hold home medications. -Sliding scale initiated. Pharmacist diabetes management consulted. Hypothyroidism -Continue home medications. -TSH of 1.047 at time of admission. Gout - Continue home meds HTN -Hold antihypertensives due to current hypotension. A-fib - On Xarelto - Monitor in telemetry Fluids: NSS at 75 mL an hour Nutrition: DM 2 and heart healthy Code status: Full code DVT ppx: Continue home Xarelto PT/OT: Ordered Dispo: PCU/telemetry Admission and Anticipated Discharge Date Admission Date: May 16, 2023 Supervising Physician Co-Signing Physician Notes Attending attestation Pt seen and examined in concert with Dr. Starks. In agreement with the documented findings as noted in the resident documentation with any exceptions or additions as noted here. Subjective improvement of symptoms with ongoing malaise/fatigue. On examination, S1/S2 nl RRR no MCG. CTAB. Abd NT/ND BS+ve Sepsis - follow up cultures as noted, potential urinary source. Wound culture w/ gram +ve Recurrent UTI h/o ESBL - continue meropenem Left foot ulcer, chronic - ortho consult s/p bedside debridement. Else see resident documentation as noted. Subjective Ms. Lezama is a 77-year-old female with recent history of a UTI diagnosis which was treated with Macrobid for 2 weeks, which was completed around 2 days ago. Ever since she finished her antibiotics, she has been referring feeling weak as well as some chills nausea and lightheadedness. She does have a history of ESBL UTIs. Patient had met SIRS criteria in the ED, therefore she was admitted for sepsis. Patient was evaluated at bedside today and she was found awake alert and oriented in all spheres, and in no acute distress. Although patient refers some improvement compared to time of admission, she does still refer feeling ill. Patient states that she does not feel fever/chills/shortness of breath/chest pain/nausea vomiting or diarrhea. Review of Systems Review of Systems: As per HPI Physical Exam Physical Exam: GENERAL: Awake alert and oriented, calm, in no acute distress HEAD: Atraumatic and normocephalic EYES: EOM intact THROAT: Normal to visual inspection CARDIO: Regular rate and rhythm, no rubs murmurs or gallops appreciated RESPIRATORY: Clear to auscultation bilaterally, normal respiratory effort, no respiratory distress GI: moderate distention, tender to palpation of bilateral lower quadrants and suprapubic region, new generalized tenderness without guarding or rebound tenderness EXTREMITIES: Upper extremities normal bilaterally, left foot with non- suppurating ulcer in medial side of MTP, dark discoloration of second left toe, right charcot foot, pedal pulses palpated bilaterally, no erythema/warmth/tenderness of bilateral lower extremities. Results & Data Results & Data Vital Signs (Past 12 Hours) Vital Signs Temp Pulse Resp BP Pulse Ox O2 Del Method 05/18/23 11:04 37.4 C 82 19 106/58 L 91 Room Air 05/18/23 07:33 36.9 C 78 17 103/60 90 Room Air 05/18/23 03:42 37.4 C 79 18 104/63 90 Room Air
--- NOTE | 2023-05-18 14:09 | Pharmacy Report ---
Pharmacy Glycemic Short Note 2 - Date of Service May 18, 2023 - Glycemic Short BSG Results (Last 24 hours): 05/17/23 05/17/23 05/17/23 15:59 20:08 20:09 Glucose POC Glucose 298 H 313 H* 311 H* 05/17/23 05/18/23 05/18/23 23:54 03:36 07:03 Glucose POC Glucose 189 H 210 H 200 H 05/18/23 05/18/23 09:05 11:36 Glucose 287 H POC Glucose 269 H OUTPATIENT ANTIDIABETIC REGIMEN: * metformin 500mg QPM (cannot tolerate higher doses d/t diarrhea) * Lantus 13 units SQ QAM * Trulicity 4.5mg/0.5mL SQ weekly (has not been able to get due to supply chain issues) * HbA1c 8.8% 05/17/23 ASSESSMENT: 05/18 * Nadia received 114 units of insulin yesterday (41 basal, 12 units IV regular insulin boluses (5+7), 73 bolus) * Fasting BSG improved this AM, but still elevated, will aim to give same basal dose as yesterday (approximately a weight based stress of 3) allowing up to a 20% increase * Novolog parameters tightened significantly, BSGs much improved * She continues on her home prednisone as well as meropenem and IV fluids. DAVID improving 05/17 * Nadia is a 77 YOF admitted with general malaise and increased BSGs. She has a history of type 2 diabetes. Pharmacy has been consulted to assist with glycemic management while inpatient. * BSG elevated on admission, home dose of Lantus given last night, BSG elevations persisted into this AM (carbs not covered yesterday evening). Basal insulin at a weight based stress of 2 given early this morning, and then continuing BID. Will change scheduled regimen to allow for a smaller dose in the evening based on BSG to prevent hypoglycemia. * BSGs still elevated at lunchtime, 5 units of IV regular insulin given in addition to Novolog to help bring down BSG values * She is currently on meropenem and daptomycin, her home prednisone 5mg was continued, and she has NS @ 75mL/hr running. * Novolog initated at a weight based stress of 2.5, will tighten this evening if BSGs remain elevated. PLAN FOR INPATIENT GLYCEMIC CONTROL: * Hold outpatient diabetes medications * Basal insulin * Lantus 20 units SQ QAM * [id number] units SQ HS (see eMAR for additional details) * Bolus insulin * NovoLog per scale ACHS or Q6hrs while NPO * Goal Range: Low 110 mg/dL - High 140 mg/dL * Correction Factor: 15 mg/dL/unit * Nutritional / Prandial insulin per carb ratio of 1 unit per 5 grams CHO consumed
[2023-05-18] MEDS: POLYETHYLENE (MIRALAX) 17 GM PACK PO SCH (15:57)
--- NOTE | 2023-05-18 16:15 | Anesthesiology Consultation ---
Date of Service May 18, 2023 Assessment & Plan (1) Pre-op evaluation: Chart Review Chart Review: Acceptable Risk for Surgery and Patient NOT seen in Pre Admission Testing Consults Requested none History Surgery Operation Date: 05/19/23 07:30 Proposed Procedures p Amputation Toe(Left) - Reno Cervantes DPM, MS Height/Weight Height: 5 ft 3 in Weight: 85.5 kg Allergies Allergy/AdvReac Type Severity Reaction Status Date / Time sulfamethoxazole Allergy Intermediate Hives Verified 05/16/23 20:35 [From Bactrim] tetanus toxoid, adsorbed Allergy Intermediate LOCALIZED Verified 05/16/23 20:35 REACTION (arm swelling), MADE HER FEEL SICK trimethoprim [From Bactrim] Allergy Intermediate Hives Verified 05/16/23 20:35 amoxicillin AdvReac Intermediate "GOT Verified 05/16/23 20:35 C-DIFF" dalbavancin [From Dalvance] AdvReac Intermediate Vomiting Verified 05/16/23 20:35 minocycline AdvReac Intermediate HEADACHES Verified 05/16/23 20:35 tetracycline AdvReac Intermediate HEADACHES Verified 05/16/23 20:35 Medications Home Medications Medication Instructions Recorded Confirmed Last Taken gabapentin 400 mg capsule 400 mg PO TID 02/19/18 05/16/23 05/29/22 multivitamin 1 tab PO QAM 02/19/18 05/16/23 05/29/22 potassium 99 mg tablet 1 tab PO QPM 02/19/18 05/16/23 05/29/22 cyanocobalamin (B12)-cobamamide 1,000 mcg sublingual QAM 03/12/18 05/16/23 05/29/22 5,000 mcg-100 mcg sublingual tablet (B-12 Plus) nitroglycerin 0.4 mg sublingual 0.4 mg sublingual Q5M PRN Chest 03/29/20 05/16/23 05/25/22 tablet (Nitrostat) Pain #25 tabs calcium carbonate 500 mg-vitamin 1 tab PO BID 06/14/20 05/16/23 05/29/22 D3 5 mcg (200 unit) tablet (Calcium 500 + D) conjugated estrogens 0.625 mg/gram 0.625 mg vaginal 2XWK 03/07/21 05/16/23 05/29/22 vaginal cream (Premarin) ferrous sulfate 325 mg (65 mg 325 mg PO Q OTHER DAY 05/16/21 05/16/23 05/29/22 iron) tablet (iron) neomycin-bacitracn Zn-polymyxn 3.5 1 applic topical DIRECTED PRN 10/18/21 05/16/23 05/29/22 mg-400 unit-5,000 unit top oint pkt skin irritation ascorbic acid (vitamin C) 500 mg 500 mg PO DAILY 05/23/22 05/16/23 05/29/22 tablet (Vitamin C) prednisone 5 mg tablet 5 mg PO QAM 05/23/22 05/16/23 05/29/22 rivaroxaban 15 mg tablet (Xarelto) 15 mg PO QDD 05/23/22 05/16/23 05/24/22 21:00 metformin 500 mg tablet 500 mg PO QPM #90 tabs 07/19/22 05/16/23 Unknown atorvastatin 80 mg tablet 80 mg PO HS #90 tabs 08/16/22 05/16/23 Unknown blood [facility]10[facility]22 04/27/23 Unknown Verio test strips) lancets 30 gauge ([facility] ea 11/10/22 04/27/23 Unknown Plus Lancet) levothyroxine 125 mcg tablet 125 mcg PO DAILY #30 tabs 12/05/22 05/16/23 Unknown blood-glucose meter ([facility] 12/26/22 04/27/23 Unknown Verio Flex Meter) pen needle, diabetic 32 gauge x #100 ea 12/28/22 04/27/23 Unknown 5/32" (BD Daly 2nd Gen Pen Needle) pen needle, diabetic 32 gauge x #100 ea 12/29/22 04/27/23 Unknown 5/32" (BD Daly 2nd Gen Pen Needle) metoprolol succinate 50 mg 50 mg PO BID #180 tabs 01/29/23 05/16/23 Unknown tablet,extended release 24 hr dulaglutide 4.5 mg/0.5 mL 4.5 mg (0.5 mL) subcut WEEKLY #2 mL 04/02/23 05/16/23 05/13/23 subcutaneous pen injector mirabegron 50 mg tablet,extended 50 mg PO DAILY #90 tabs 04/09/23 05/16/23 Unknown release 24 hr (Myrbetriq) methenamine hippurate 1 gram tablet 1 g PO BID #180 tabs 04/12/23 05/16/23 Unknown nitrofurantoin 100 mg PO BID #28 caps 04/27/23 05/16/23 Unknown monohydrate/macrocrystals 100 mg capsule (Macrobid) allopurinol 100 mg tablet 100 mg PO QAM 05/16/23 05/16/23 Unknown amiodarone 200 mg tablet 200 mg PO QAM 05/16/23 05/16/23 Unknown cyclosporine 0.05 % eye drops in a 1 drp OPB Q12H 05/16/23 05/16/23 Unknown dropperette (Restasis) diclofenac sodium 1 % topical gel 2 g topical QID PRN Pain 05/16/23 05/16/23 Unknown duloxetine 30 mg capsule,delayed 30 mg PO QAM 05/16/23 05/16/23 Unknown release esomeprazole magnesium 40 mg 40 mg PO QAM 05/16/23 05/16/23 Unknown capsule,delayed release famotidine 40 mg tablet 40 mg PO QPM 05/16/23 05/16/23 Unknown insulin glargine 100 unit/mL (3 4 unit subcut DIRECTED 05/16/23 05/16/23 Unknown mL) subcutaneous pen (Lantus Solostar U-100 Insulin) triamterene 37.5 1 tab PO QAM 05/16/23 05/16/23 Unknown mg-hydrochlorothiazide 25 mg tablet valacyclovir 500 mg tablet 500 mg PO QPM 05/16/23 05/16/23 Unknown Active Medications Generic Name Dose Route Start Last Admin [facility] Reason Stop Dose Admin Allopurinol 100 mg 05/17/23 09:00 05/18/23 09:31 Allopurinol 100 Mg Tab PO 06/16/23 08:59 100 mg QAM DENEEN Administration Atorvastatin Calcium 80 mg 05/16/23 22:56 05/17/23 21:03 Atorvastatin 40 Mg Tab PO 06/15/23 22:55 80 mg HS DENEEN Administration Duloxetine HCl 30 mg 05/17/23 09:00 05/18/23 09:32 Duloxetine Hcl 30 Mg Cap PO 06/16/23 08:59 30 mg DAILY DENEEN Administration Famotidine 20 mg 05/17/23 09:00 05/18/23 09:35 Famotidine 20 Mg Tab PO 06/16/23 08:59 20 mg QAM DENEEN Administration Gabapentin 400 mg 05/16/23 22:56 05/18/23 14:31 Gabapentin 400 Mg Cap PO 06/15/23 22:55 400 mg TID DENEEN Administration Sodium Chloride 1,000 mls @ 75 mls/hr 05/16/23 22:56 05/18/23 14:33 Nss IV 06/15/23 22:55 75 mls/hr .[id number] DENEEN Administration Meropenem 500 mg/ Syringe 10 mls @ 2 mls/min 05/17/23 00:00 05/18/23 15:49 IV 05/27/23 00:00 2 mls/min Q8H DENEEN Administration Protocol Daptomycin 275 mg/ Syringe 5.5 mls @ 2.75 mls/min 05/17/23 07:15 05/17/23 09:54 IV 05/27/23 07:14 Not Given Q24H DENEEN Protocol Insulin Aspart 0 units 05/16/23 23:45 05/18/23 12:14 Insulin Aspart Per Unit Charge SC 06/15/23 23:44 18 units ACHS DENEEN Administration Insulin Glargine 0 units 05/17/23 21:00 05/17/23 21:01 Lantus Per Unit Charge SQ 06/16/23 20:59 13 units HS DENEEN Administration Protocol Insulin Glargine 20 units 05/18/23 09:00 05/18/23 08:38 Lantus Per Unit Charge SQ 06/17/23 08:59 20 units QAM DENEEN Administration Levothyroxine Sodium 125 mcg 05/17/23 06:30 05/18/23 06:17 Levothyroxine Sodium 125 Mcg Tablet PO 06/16/23 06:29 125 mcg DAILYBB DENEEN Administration Metoprolol Succinate 50 mg 05/16/23 22:56 05/18/23 09:31 Metoprolol Succ 50mg Ext Rel Tab PO 06/15/23 22:55 50 mg BID DENEEN Administration Pantoprazole Sodium 40 mg 05/17/23 09:00 05/18/23 09:34 Pantoprazole 40 Mg Tab PO 06/16/23 08:59 40 mg DAILY DENEEN Administration Polyethylene Glycol 17 gm 05/18/23 14:00 05/18/23 15:57 Polyethylene (Miralax) 17 Gm Pack PO 06/17/23 13:59 Not Given TID DENEEN Prednisone 5 mg 05/17/23 09:00 05/18/23 09:34 Prednisone 5 Mg Tab PO 06/16/23 08:59 5 mg QAM DENEEN Administration Rivaroxaban 15 mg 05/17/23 16:30 05/17/23 16:50 Rivaroxaban 15 Mg Tab PO 06/16/23 16:29 15 mg QDD DENEEN Administration Triamterene/Hydrochlorothiazide 1 tab 05/17/23 09:00 05/18/23 09:35 Triamterene/Hctz 37.5/25mg Tab PO 06/16/23 08:59 1 tab QAM DENEEN Administration Past Medical History Medical History Sepsis Encounter for colorectal cancer screening Chest pain RE-OCCURING ON OCC/ MOST RECENT LAST WEEK / USED NITRO FOR DENIES CHANGE IN BASELINE OCCURENCE DETAILS PT HAS DISCUSSED PAST OCCURENCES WITH DR OROPEZA History of colon polyps -12/01 were normal and 1 something abdnormal/reason for upcoming colonoscopy Incomplete bladder emptying self cath tid Overactive bladder Wheelchair dependence pt states she can stand and pivot on her own On antibiotic therapy preventative for recurring wound infection to rt foot and recurring UTIs - abx tx through picc line completed 3 - 4 weeks ago current : wound on foot doing really well per pt/no current s/s uti History of ESBL E. coli infection Rectal ulcer hx Arthritis Charcot's joint of foot in type 2 diabetes mellitus Sensorineural hearing loss of both ears Hemorrhoids, internal, with bleeding hx Stress incontinence in female Paroxysmal atrial fibrillation dx 2014 - on xarelto - follows with Dr. 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 Andrews presents today for management of her hypertension, hypercholesterolemia, paroxysmal atrial fibrillation (postop, October 2014), diastolic dysfunction, class 1 angina pectoris, and her coronary artery disease (CABG x3, October 2014). Since her last visit, the patient has been stable. She is able to carry on activity of daily life with the assistance of a wheelchair. She has not experienced any exertional angina pectoris or limiting dyspnea. She further denies syncope, presyncope, PND orthopnea, lower extremity edema, and claudication. There has been no recurrence of her atrial fibrillation. She specifically denies palpitations. She is tolerating rhythm control and long-term anticoagulation without difficulty. TSH level drawn back in December was normal. She is scheduled for liver transaminases and a TSH later this week. Past Family History Family History Mother Family hx of colon cancer Cardiac disorder Colorectal cancer Cancer Hypertension Father Cardiac disorder Lung cancer Hypertension Grandmother (Maternal) Stroke Other No family history of adverse response to anesthesia Denies family history of Ovarian cancer Breast cancer Past Surgical History Surgical History History of surgery picc line & removal (1 mon ago) History of left knee surgery 2009, d/t injury History of carpal tunnel surgery of left wrist (~04/20/20) History of repair of rotator cuff RIGHT. 03/12/2018. DONE AT [facility]. BLOCK WITH LMA. NO ISSUES. History of dilatation and curettage History of bilateral tubal ligation Charcot's joint of foot RIGHT FOOT (4 SURGERIES TOTAL) History of total knee replacement LEFT History of ankle surgery LEFT History of surgery BLADDER STIMULATOR IMPLANTED IN BACK- not sure if currently working History of bladder repair surgery R/T URINARY LEAKAGE History of colonoscopy History of tooth extraction History of tonsillectomy History of adenoidectomy History of cataract surgery RIGHT/LEFT History of coronary artery bypass graft CABG X 3 (2014) History of cardiac cath 2015= NO STENTS Social History Smoking Status: Never smoker Do You Dip or Chew Tobacco: No Hx Alcohol Use: Yes Alcohol type: wine alcohol intake frequency: holidays/special occasions only Hx Substance Use: No substance use type: does not use Physical Exam Vital Signs Last Vital Signs Temp 36.9 C 05/18/23 15:23 Pulse 81 05/18/23 15:23 Resp 17 05/18/23 15:23 BP 111/65 05/18/23 15:23 Pulse Ox 90 05/18/23 15:23 O2 Del Method Room Air 05/18/23 15:23 Testing Laboratory Results 05/18/23 09:05 05/18/23 09:05 PT 12.4 Seconds (9.0-12.0) H 05/16/23 19:00 INR 1.1 (0.9-1.1) 05/16/23 19:00 APTT 31 Seconds (21-31) 05/16/23 19:00 Hemoglobin A1c 8.8 % (4.5-5.6) H 05/17/23 06:01 Urine Color Yellow 05/16/23 19:15 Urine Appearance Turbid (Clear) A 05/16/23 19:15 Urine pH 5.5 (4.5-7.5) 05/16/23 19:15 Ur Specific [place] 1.020 (1.000-1.030) 05/16/23 19:15 Urine Protein 1+ (Negative) H 05/16/23 19:15 Urine Glucose (UA) 3+ (Negative) H 05/16/23 19:15 Urine Ketones Negative (Negative) 05/16/23 19:15 Urine Nitrite Negative (Negative) 05/16/23 19:15 Ur Leukocyte Esterase 2+ (Negative) H 05/16/23 19:15 Urine WBC (Auto) Not Reportable 05/16/23 19:15 Urine RBC (Auto) Not Reportable 05/16/23 19:15 U Hyaline Cast (Auto) Not Reportable 05/16/23 19:15 U Epithel Cells (Auto) Not Reportable 05/16/23 19:15 Urine Bacteria (Auto) Not Reportable 05/16/23 19:15 Urine RBC >30 /hpf (0-4) H 05/16/23 19:15 Urine WBC >30 /hpf (0-5) H 05/16/23 19:15 Ur Epithelial Cells 0-5 /lpf (0-5) 05/16/23 19:15 05/17/23 Unknown Gram Stain - Final Ankle,Right Wound Culture - Preliminary Staphylococcus species 05/17/23 19:26 Gram Stain - Final Toe,Left Second Aerobic and Anaerobic Culture - Preliminary Pin-point growth present, reincubating. 05/16/23 19:15 Urine Culture - Final Urine,Clean Catch Three types of organisms present, all high counts probable skin radha. No further identifications or sensitivities to follow. 05/17/23 Unknown Gram Stain - Final Foot,Left Wound Culture - Preliminary Staphylococcus species 05/16/23 20:23 Aerobic Blood Culture - Preliminary Blood No growth in Aerobic bottle after 24 hours. Anaerobic Blood Culture - Preliminary No growth in Anaerobic bottle after 24 hours. 05/16/23 20:30 Aerobic Blood Culture - Preliminary Blood No growth in Aerobic bottle after 24 hours. Anaerobic Blood Culture - Preliminary No growth in Anaerobic bottle after 24 hours. 05/18/23 05/18/23 11:36 07:03 POC Glucose 269 H 200 H Electrocardiogram Date: 05/16/23 DICTATED BY: Fritz Goldberg MD Test Reason : Blood Pressure : / mmHG Vent. Rate : 089 BPM Atrial Rate : 089 BPM P-R Int : 184 ms QRS Dur : 090 ms QT Int : 368 ms P-R-T Axes : 048 049 140 degrees QTc Int : 447 ms Normal sinus rhythm Abnormal ECG When compared with ECG of 01-MAR-2022 21:50, Minimal criteria for Anteroseptal infarct are no longer Present T wave inversion now evident in Lateral leads QT has shortened Confirmed by Fritz Goldberg ([id number]) on 05/17/2023 12:49:46 PM Chest X-Ray Date: 05/16/23 XR chest 1V portable HISTORY: 77 years-old Female weakness acute weakness COMPARISON: 07/18/2022 TECHNIQUE: AP view the chest FINDINGS: Cardiac silhouette is enlarged. Median sternotomy with CABG. No pneumothorax, pleural effusion or pulmonary edema. Mild subsegmental bibasilar atelectasis. Bones appear grossly intact. IMPRESSION: 1. Cardiomegaly without acute process. 2. Mild subsegmental bibasilar atelectasis. Echocardiogram Date: 03/02/22 Normal LV size and systolic function. EF 65-70%. No RWMA. No LVH Mild MR Normal estimated RV systolic pressure.
--- NOTE | 2023-05-18 20:49 | Orthopedic Progress Note ---
Date of Service May 18, 2023 Assessment & Plan (1) Diabetic ulcer of left foot: Plan: Patient seen and evaluated in S236-1 with Eriberto present. Sharp debridement of left second toe ulcer with a sharp, sterile, #15 blade down to bone. Ulcer base shows significant distal and intermediate phalanx. Due to the amount of necrotic tissue noted and significant absent soft tissue with exposed proximal and intermediate phalanx of the left second toe Patient would be best treated with amputation. I reviewed left second toe amputation in detail with Patient and Patient's Eriberto in detail. Both agree to treatment plan. Patient scheduled for left second toe amputation 7:30am Sunday05/19/23. Thank you for allowing me to participate in the care of this Patient. Will continue to follow while Patient remains in house. (2) Cellulitis: (3) Diabetes mellitus, type 2: Admission and Anticipated Discharge Date Admission Date: May 16, 2023 Subjective Patient seen at bedside in S236-1 for foot and ankle ulcers. Patient's is present who helps with history and care. Patient resting comfortably. Physical Exam Constitutional: cooperative and comfortable Eyes: normal visual singh by confrontation Neck: normal visual inspection and trachea midline Respiratory: normal respiratory effort Cardiovascular: Vessels: posterior tibial pulses present and dorsalis pedis pulses present Musculoskeletal: Extremities: + foot abnormality (Rocker bottom derformity consistent with Charcot Arthropathy) Skin: + lesion (Left Sub-met 1 hyperkeratotic lesion), + ulcer (Right Lateral ankle full thickness ulcer, ), + wound (Left second DIPJ full thickness ulcer with exposed phalanx) and + erythema (Bilateral feet periwound) Left second toe ulcer measures 1.8 x 0.8 x 0.3cm. There is significant portions of exposed distal and intermediate phalanx bone. Psychiatric: Orientation: oriented to person and cooperative Results & Data Vital Signs (Past 12 Hours) Vital Signs Temp Pulse Pulse Resp BP Pulse Ox O2 Del Method 05/18/23 19:00 37.0 C 85 18 105/58 L 92 Room Air 05/18/23 18:40 86 05/18/23 15:23 36.9 C 81 17 111/65 90 Room Air 05/18/23 11:04 37.4 C 82 19 106/58 L 91 Room Air (2) Cellulitis Laterality: left Site of cellulitis: extremity Site of cellulitis of extremity: lower extremity Qualified Code(s): L03.116 - Cellulitis of left lower limb
[2023-05-19] MEDS: INSULIN ASPART PER UNIT CHARGE SC SCH ×2 (06:15→10:00)
[2023-05-19] MEDS ORDERED: fentaNYL citrate PF 100 MCG/2 ML VIAL ONE (07:11)
[2023-05-19] MEDS ORDERED: LIDOCAINE 2% 2 ML VIAL/AMP(20MG/ML) INFIL ONE (07:15)
[2023-05-19] MEDS ORDERED: PROPOFOL IV EMULSION 10 MG/ML 20 ML VIAL IV ONE (07:15)
[2023-05-19] MEDS ORDERED: ATROPINE SULFATE 0.1 MG/ML 10ML SYR IV PRN (07:34)
[2023-05-19] MEDS ORDERED: ONDANSETRON INJ 2 MG/ML 2 ML VIAL IV PRN (07:34)
[2023-05-19] MEDS ORDERED: fentaNYL citrate PF 100 MCG/2 ML VIAL IV PRN (07:34)
--- NOTE | 2023-05-19 07:47 | History & Physical Bridge Note ---
Date of Service May 19, 2023 History & Physical Bridge Note I have examined the patient, reviewed the History & Physical and in the interval since the performance of the History & Physical I have noted the following changes of clinical significance: no changes noted
[2023-05-19 07:48] LABS: Basophils # (auto) 0.06 K/uL (0.00-0.20); Basophils % (auto) 0.4 %; Eosinophils # (auto) 0.14 K/uL (0.00-0.50); Hematocrit (blood only) 26.6 % (37.0-47.0); Hemoglobin 8.7 g/dl (12.0-16.0); Immature Granulocytes # (auto) 0.34 K/uL (0.01-0.20); Immature Granulocytes % (auto) 2.4 %; Lymphocytes # (auto) 2.01 K/uL (1.20-3.40); Lymphocytes % (auto) 14.5 %; Mean Corpuscular Hemoglobin 31.5 pg (25.0-34.0); Mean Corpuscular Hgb Conc 32.7 g/dL (32.0-36.0); Mean Corpuscular Volume 96.4 fL (80.0-100.0); Monocytes # (auto) 1.51 K/uL (0.11-0.59); Monocytes % (auto) 10.9 %; Neutrophils # (auto) 9.82 K/uL (1.40-6.50); Neutrophils % (auto) 70.8 %; Platelet Count 220 K/uL (130-400); RDW Coefficient of Variation 14.8 % (11.5-14.5); RDW Standard Deviation 51.8 fL (36.4-46.3); Red Blood Count 2.76 M/uL (4.20-5.40); White Blood Count 13.88 K/ul (4.8-10.8)
[2023-05-19] MEDS: ceFAZolin 2000MG 2,000 MG/15 ML SYR IV ONE (07:50)
[2023-05-19] MEDS: BUPIVACAINE 0.5 % 5 MG/1 ML MPF 30ML VIAL ONE (08:16)
--- NOTE | 2023-05-19 08:24 | Post Operative Brief Note ---
Immediate Post Op Note v1 Date of Surgery May 19, 2023 Pre & Post Diagnosis Operation Date: 05/19/23 07:30 Pre-Op Diagnosis: Diabetic ulcer of left foot Post-Op Diagnosis: Diabetic ulcer of left foot I identified the patient and participated in the time-out.: Yes Procedure Operation Date: 05/19/23 07:30 Actual Procedures p Left Second Toe Amputation(Left) - Reno Cervantes DPM, MS Surgeon Reno Cervantes DPM, MS Hydrotreater Operator None Estimated Blood Loss 0 Findings Consistent with Post-Op Diagnosis Necrotic left second toe Specimens Left second toe
[2023-05-19 08:25] LABS: BUN Creatinine Ratio 19.8 (10-20); Calcium 7.6 mg/dl (8.6-10.3); Creatinine Clr Calc Pharmacy 45.7 ml/min; Est GFR (African American) 58.2 ml/min; Est GFR (Non-African American) 50.3 ml/min; Potassium 3.6 mmol/L (3.5-5.1)
--- NOTE | 2023-05-19 08:47 | Anesthesiology Progress Note ---
Date of Service May 19, 2023 Anesthesia Post Procedure Vital Signs Vital Signs: Temp Pulse Pulse Resp BP Pulse Ox Pulse Ox 05/19/23 08:45 36.8 C 73 18 124/66 92 05/19/23 08:35 73 16 128/64 92 05/19/23 08:27 37.1 C 76 18 114/71 91 05/19/23 07:43 36.7 C 75 18 115/62 90 05/19/23 04:28 36.7 C 72 20 105/58 L 90 05/18/23 22:56 92 05/18/23 22:40 37.2 C 83 18 112/56 L 92 05/18/23 22:02 85 05/18/23 20:00 05/18/23 19:00 37.0 C 85 18 105/58 L 92 05/18/23 18:40 86 05/18/23 15:23 36.9 C 81 17 111/65 90 05/18/23 11:04 37.4 C 82 19 106/58 L 91 O2 Del Method O2 Del Method O2 Flow Rate 05/19/23 08:45 Nasal Cannula 2 05/19/23 08:35 Nasal Cannula 2 05/19/23 08:27 Nasal Cannula 4 05/19/23 07:43 Room Air 05/19/23 04:28 Room Air 05/18/23 22:56 Room Air 05/18/23 22:40 Room Air 05/18/23 22:02 05/18/23 20:00 Room Air 05/18/23 19:00 Room Air 05/18/23 18:40 05/18/23 15:23 Room Air 05/18/23 11:04 Room Air Transfer of Care Handoff Completed per policy Notes Mental Status: alert / awake / arousable Patient Amnestic to Procedure: Yes Nausea / Vomiting: adequately controlled Pain: adequately controlled Airway Patency, RR, SpO2: stable & adequate BP & HR: stable & adequate Hydration State: stable & adequate Anesthetic Complications: no major complications apparent
--- NOTE | 2023-05-19 08:58 | Hospitalist Progress Note ---
Date of Service May 19, 2023 Assessment & Plan (1) Sepsis: (2) DAVID (acute kidney injury): (3) Chronic ulcer of left foot: (4) Recurrent UTI (urinary tract infection): (5) Diabetes mellitus, type 2: (6) Hypothyroidism: (7) Gout: (8) Hypertension: (9) Paroxysmal atrial fibrillation: (10) Toe necrosis: (11) Status post amputation of toe of left foot: Plan Ms. Savage is a 77-year-old female who was admitted to our service for management of sepsis secondary to UTI. Patient also found to be hyperglycemic with a blood sugar above 400 while in the emergency department. Sepsis // Necrotic 2nd left toe // Chronic ulcer of left foot -Given negative urine culture, source of sepsis likely patient's chronic ulcers or necrotic second left toe -Wound cultures growing MSSA. -Blood cultures negative after 48 hours. -CT of the foot not showing any active osteomyelitis. -No fevers recorded today and vital signs have remained stable. Blood pressures improving. -Leukocytosis improving with a.m. labs showing white blood count of 13.88 (yesterday was 15.95), still with neutrophilic predominance. -Continue on NSS at 75 mL an hour. -Antibiotic changed to daptomycin. -Podiatry consulted S/p bedside debridement S/p amputation of necrotic second toe of her left foot (05/19/2023) -Wound care consulted. Anemia -Patient with hemoglobin of 10.9 at the time of admission. Current hemoglobin of 8.7 -Patient has remained asymptomatic with regards to lightheadedness and dizziness. However, she is endorsing weakness, which uncertain if related to current anemia or current infection. -Consider possible that her current anemia is dilutional given the fluids she has been given to manage her sepsis. -Will repeat H&H postop to further assess current hemoglobin after her second left toe amputation. -If hemoglobin is below 7 or if patient has hemoglobin approximating 7 and is symptomatic, will consider transfusion. Recurrent UTI -Patient was on extended course of Macrobid for UTI. -Previous UTIs grew ESBL. -UA positive for UTI, but urine cultures only growing normal radha. -Given current abdominal pressure/tenderness, will repeat urinalysis and urine culture to fully rule out possibility of a UTI. Abdominal pain -Patient's abdominal pain improved after having multiple bowel movements yesterday after the addition of MiraLAX 3 times daily. -Will change MiraLAX order to daily and to as needed. DAVID -Creatinine improved to 1.06 this morning, which is at patient's baseline. -Monitor with morning lab DM-II, uncontrolled with associated peripheral neuropathy -Hemoglobin A1c 8.8% -Hold home medications. -Sliding scale initiated. Pharmacist diabetes management consulted. Hypothyroidism -Continue home medications. -TSH of 1.047 at time of admission. Gout - Continue home meds HTN -Hold antihypertensives due to current soft BP. A-fib - On Xarelto - Monitor in telemetry Fluids: NSS at 75 mL an hour Nutrition: DM 2 and heart healthy Code status: Full code DVT ppx: Continue home Xarelto PT/OT: Ordered Dispo: PCU/telemetry Admission and Anticipated Discharge Date Admission Date: May 16, 2023 Supervising Physician Co-Signing Physician Notes Attending attestation Pt seen and examined in concert with Dr. Starks. In agreement with the documented findings as noted in the resident documentation with any exceptions or additions as noted here. Overall improvement of abdominal discomfort with some persistence and bloating following bowel movement and without urinary complaint directly. On examination, S1/S2 nl RRR no MCG. CTAB. Abd NT/ND BS+ve Recurrent UTI h/o ESBL - completed 3 days of meropenem - repeat UA and monitor for further symptoms as abd sx appear to be more closely associated with constipation and urinary sx not present Left foot ulcer, chronic - ortho consult s/p bedside debridement and amputation as noted. Per ortho, transitioned to daptomycin. Would consider rapid narrowing based on surgical culture Anemia, acute on chronic - likely lab variance without symptoms apparent. Repeat at 1200 and, if continued downtrend, check FOBT DMII - improved glycemic control on basal bolus regimen. Continue to monitor and adjust. Else see resident documentation as noted. Subjective Ms. Andrews is a 77-year-old female with recent history of a UTI diagnosis which was treated with Macrobid for 2 weeks, which was completed around 2 days prior to admission. Ever since she finished her antibiotics, she has been referring feeling weak as well as some chills nausea and lightheadedness. She does have a history of ESBL UTIs. Patient had met SIRS criteria in the ED, therefore she was admitted for sepsis. Patient not in room at the time of evaluation, since she was taken to the OR for second left toe amputation due to necrosis. Nursing not indicating any significant change with regards to her clinical status during the night. Also referring multiple bowel movements since yesterday after the addition of scheduled MiraLAX. Review of Systems Review of Systems: As per HPI Physical Exam Physical Exam: GENERAL: Awake alert and oriented, calm, in no acute distress HEAD: Atraumatic and normocephalic EYES: EOM intact THROAT: Normal to visual inspection CARDIO: Regular rate and rhythm, no rubs murmurs or gallops appreciated RESPIRATORY: Clear to auscultation bilaterally, normal respiratory effort, no respiratory distress GI: moderate distention, generalized pressure/tenderness that is improved compared to yesterday but still present, no guarding or rebound tenderness EXTREMITIES: Upper extremities normal bilaterally, waffle boots noted bilaterally, left foot covered with bandages after recent second left toe amputation, bandages were clean and dry Results & Data Results & Data Vital Signs (Past 12 Hours) Vital Signs Temp Pulse Pulse Resp BP Pulse Ox Pulse Ox 05/19/23 08:45 36.8 C 73 18 124/66 92 05/19/23 08:35 73 16 128/64 92 05/19/23 08:27 37.1 C 76 18 114/71 91 05/19/23 07:43 36.7 C 75 18 115/62 90 05/19/23 04:28 36.7 C 72 20 105/58 L 90 05/18/23 22:56 92 05/18/23 22:40 37.2 C 83 18 112/56 L 92 05/18/23 22:02 85 O2 Del Method O2 Del Method O2 Flow Rate 05/19/23 08:45 Nasal Cannula 2 05/19/23 08:35 Nasal Cannula 2 05/19/23 08:27 Nasal Cannula 4 05/19/23 07:43 Room Air 05/19/23 04:28 Room Air 05/18/23 22:56 Room Air 05/18/23 22:40 Room Air 05/18/23 22:02
[2023-05-19] MEDS ORDERED: Nursing to Pharmacy Communication SCH (09:15)
[2023-05-19] MEDS: DAPTOmycin 275 MG in SYRINGE 0 ML IV SCH (10:01)
[2023-05-19] MEDS ORDERED: ceFAZolin 330 MG/ML 1 GM VIAL ONE (10:44)
[2023-05-19] MEDS: POLYETHYLENE (MIRALAX) 17 GM PACK PO SCH (13:07)
[2023-05-19 14:55] LABS: Hematocrit (blood only) 28.8 % (37.0-47.0); Hemoglobin 9.4 g/dl (12.0-16.0)
--- NOTE | 2023-05-19 15:29 | Operative Report ---
Post Operative Report Pre & Post Diagnosis Operation Date: 05/19/23 07:30 Pre-Op Diagnosis: Diabetic ulcer of left foot Post-Op Diagnosis: Diabetic ulcer of left foot I identified the patient and participated in the time-out.: Yes Procedure Operation Date: 05/19/23 07:30 Actual Procedures p Left Second Toe Amputation(Left) - Reno Cervantes DPM, MS Surgeon Reno Cervantes DPM, MS Traveler Changer None Estimated Blood Loss 5 Findings Consistent with Post-Op Diagnosis Consistent with pre-operative diagnosis Specimens Left second toe - Pathology Description of Procedure History of present illness: Patient is a 77 year old male who is seen for treatment of non healing diabetic ulcer of left second toe. Patient notes a diabetic foot ulcer open for several months. There is exposed distal and proximal phalanx of left second toe. Patient relates minimal discomfort. Patient requests surgical amputation of left second toe. I discussed patient's history of toe amputation and reviewed hammertoe correction surgery. All questions answered. Discussed procedure in detail and postoperative recovery. All potential risks, benefits, complications, alternatives, rehab, potential for incomplete relief of symptoms, need for further surgery, DVT, PE, , persistent pain, swelling, scarring, weakness, neurovascular, wound complications and potential for amputations were discussed with patient. Unwanted outcomes such as, but not limited to were reviewed including under correction, overcorrection, return of deformity, infection. All questions were answered. Patient has decided to proceed with procedure as indicated. Preoperative diagnosis: 1.) Diabetic non healing ulcer left second toe 2.) Left sub-met 1 diabetic ulcer Postoperative diagnosis: same Name of operation: 1.) Amputation left second toe 2.) Left sub-met 1 diabetic foot ulcer debridement Surgeon: Dr. Cervantes Traveler Changer: None Anesthesia: local with monitored anesthesia care Hemostasis: pneumatic ankle tourniquet Estimated blood loss: minimal Procedure in detail: Under mild sedation the patient was brought in the operating room placed on the operating table in supine position. A pneumatic ankle tourniquet was then placed about the patient's left ankle. Following IV sedation local anesthesia was obtained about the left utilizing 15 cc of a one-to-one mixture of 1% lidocaine plain and 0.5% Marcaine plain. The foot was then prepped scrubbed and draped in usual aseptic manner. An Esmarch bandage was utilized to exsanguinate the patient's left foot and the pneumatic ankle tourniquet was then inflated. Attention was then directed to a nonhealing diabetic ulcer on the distal aspect of the left second toe. A fishmouth incision was created utilizing a sharp, sterile, #15 blade. The incision was deepened through subcutaneous tissue using sharp blunt dissection. Care was taken to identify and retract all vital neurovascular structures. All bleeders were ligated and cauterized necessary. At this time the left second toe was removed at the first metatarsal phalangeal joint and placed on the back table. The left second toe was labeled, placed in formalin, and sent to pathology Copious amounts of sterile normal saline were utilized to flush the incision site. The skin was then primarily closed utilizing 4-0 nylon in horizontal suture mattress techniques as well as simple suture closure. Attention was then directed to the left sub-met 1 hyperkeratotic lesion with sub dermal and intradermal hemorrhaging. Utilizing a sharp, sterile, #15 blade the hyperkeratotic lesion was reduced exposing the diabetic foot ulcer. The wound measures 2 cm x 3 cm x 0.5 cm. The wound bed shows 30% necrotic or non viable tissue well demarcated. Utilizing a sharp, sterile, #15 blade the diabetic foot ulcer was debrided. The wound is voided of non viable soft tissue. Excision debridement is carried down to and including subcutaneous tissue to achieve a healthy wound bed. 1 L of lactated Ringer was then irrigated with low flow into the wound. The tourniquet is then deflated and hemostasis of the wound is acquired. Upon completion of the procedure the incision was dressed with Betadine soaked Adaptic followed by sterile compressive dressing consisting of 4 x 4's Jalen Kerlix ABD the pneumatic ankle tourniquet was inflated and a prompt hyperemic response was noted to all digits of the left foot. An Acosta wrap and postoperative shoe were then applied. The Patient tolerated the procedure and anesthesia well. He was transferred to recovery room vital signs stable and vascular status intact all toes of the left foot following. Patient will be re- admitted to the floor resuming all pre-operative orders. I attest to the content of the Intraoperative Record and any orders documented therein. Any exceptions are noted below.
[2023-05-19 18:07] LABS: Appearance Urine Turbid (Clear); Bacteria Urine Automated Negative (Negative); Bilirubin Urine Negative (Negative); Blood Urine 2+ (Negative); Cast Urine Automated 0 /lpf (0-5); Color Urine Yellow; Epithelial Cell Urine Auto 0-5 /lpf (0-5); Glucose Urine UA Trace (Negative); Ketones Urine Negative (Negative); Leukocyte Esterase Urine 3+ (Negative); Nitrite Urine Negative (Negative); Protein Urine 1+ (Negative); Specific Gravity Urine 1.013 (1.000-1.030); Urobilinogen Urine Negative (Negative); WBC Urine Automated >30 /hpf (0-5); pH Urine 5.5 (4.5-7.5)
[2023-05-19 18:18] LABS: RBC Urine Automated 0-4 /hpf (0-4)
[2023-05-19 18:56] LABS: A calco-baum cmplx NotReported Not Detected (NotDetected); Bact fragilis Not Reported Not Detected (NotDetected); Blood Culture Id Panel See PCR Comment (NotDetected); C auris Not Reported Not Detected (NotDetected); Calbicans Not Reported Not Detected (NotDetected); Candida glabrata Not Reported Not Detected (NotDetected); Candida krusei Not Reported Not Detected (NotDetected); Cneoformans/gatti Not Reported Not Detected (NotDetected); Cparapsilosis Not Reported Not Detected (NotDetected); E cloacae compx Not Reported Not Detected (NotDetected); Efaecalis Not Reported Not Detected (NotDetected); Efaecium Not Reported Not Detected (NotDetected); Enterobacterales Not Reported Not Detected (NotDetected); Escherichia coli Not Reported Not Detected (NotDetected); H influenzae Not Reported Not Detected (NotDetected); K aerogenes Not Reported Not Detected (NotDetected); Koxytoca Not Reported Not Detected (NotDetected); Kpneumoniae grp Not Reported Not Detected (NotDetected); Lmonocyt Not Reported Not Detected (NotDetected); N meningitidis Not Reported Not Detected (NotDetected); P aeruginosa Not Reported Not Detected (NotDetected); Proteus spp Not Reported Not Detected (NotDetected); Salmonella spp Not Reported Not Detected (NotDetected); Smarcescens Not Reported Not Detected (NotDetected); Staph lugdunensis Not Reported Not Detected (NotDetected); Staph spp. Not Reported DETECTED (NotDetected); Staphaureus Not Reported DETECTED (NotDetected); Staphepi Not Reported Not Detected (NotDetected); Stenmaltophilia Not Reported Not Detected (NotDetected); Strep agal(GrpB) Not Reported Not Detected (NotDetected); Strep pneum Not Reported Not Detected (NotDetected); Strep pyog (GrpA) Not Reported Not Detected (NotDetected); Strep spp Not Reported Not Detected (NotDetected); mecAC+MREJ Resistant Gene MRSA Not Detected (NotDetected)
[2023-05-19 19:03] LABS: Staphylococcus spp. DETECTED (NotDetected)
[2023-05-19] MEDS: LANTUS PER UNIT CHARGE SQ SCH (20:42)
[2023-05-20 07:20] LABS: Basophils # (auto) 0.06 K/uL (0.00-0.20); Basophils % (auto) 0.4 %; Eosinophils # (auto) 0.12 K/uL (0.00-0.50); Eosinophils % (auto) 0.8 %; Hematocrit (blood only) 29.2 % (37.0-47.0); Hemoglobin 9.2 g/dl (12.0-16.0); Immature Granulocytes # (auto) 0.43 K/uL (0.01-0.20); Lymphocytes # (auto) 1.98 K/uL (1.20-3.40); Lymphocytes % (auto) 13.8 %; Mean Corpuscular Hemoglobin 31.3 pg (25.0-34.0); Mean Corpuscular Hgb Conc 31.5 g/dL (32.0-36.0); Mean Corpuscular Volume 99.3 fL (80.0-100.0); Mean Platelet Volume 11.6 fL (9.4-12.4); Monocytes # (auto) 1.67 K/uL (0.11-0.59); Monocytes % (auto) 11.7 %; Neutrophils # (auto) 10.05 K/uL (1.40-6.50); Neutrophils % (auto) 70.3 %; Platelet Count 265 K/uL (130-400); RDW Coefficient of Variation 14.9 % (11.5-14.5); RDW Standard Deviation 53.9 fL (36.4-46.3); Red Blood Count 2.94 M/uL (4.20-5.40); White Blood Count 14.31 K/ul (4.8-10.8)
[2023-05-20 07:34] LABS: BUN Creatinine Ratio 19.6 (10-20); Calcium 7.6 mg/dl (8.6-10.3); Creatinine Clr Calc Pharmacy 52.9 ml/min; Est GFR (African American) 69.1 ml/min; Est GFR (Non-African American) 59.6 ml/min; Potassium 3.8 mmol/L (3.5-5.1)
--- NOTE | 2023-05-20 09:23 | Hospitalist Progress Note ---
Date of Service May 20, 2023 Assessment & Plan (1) Sepsis: (2) DAVID (acute kidney injury): (3) Chronic ulcer of left foot: (4) Recurrent UTI (urinary tract infection): (5) Diabetes mellitus, type 2: (6) Hypothyroidism: (7) Gout: (8) Hypertension: (9) Paroxysmal atrial fibrillation: (10) Toe necrosis: (11) Status post amputation of toe of left foot: Plan Ms. Savage is a 77-year-old female who was admitted to our service for management of sepsis secondary to UTI. Patient also found to be hyperglycemic with a blood sugar above 400 while in the emergency department. Staph spp. Bacteremia -Patient with wound cultures positive for Staph aureus and now 1 bottle from blood culture positive for staph species -Leukocytosis with some increased compared to yesterday's labs (13.88 yesterday, 14.31 today). Possible this may be related to patient's bacteremia versus recent left second toe amputation. -Patient currently covered with daptomycin and is status post 3 days of meropenem. -Will order repeat blood cultures as well as a TTE to rule out any possible valvular seeding from staph bacteremia. Sepsis // Necrotic 2nd left toe // Chronic ulcer of left foot -Given negative urine culture, source of sepsis likely patient's chronic ulcers or necrotic second left toe -Wound cultures growing MSSA. -Blood cultures negative after 48 hours. -CT of the foot not showing any active osteomyelitis. -No fevers recorded today and vital signs have remained stable. Blood pressures stable. -Continue on NSS at 75 mL an hour. -Antibiotic coverage with daptomycin. Status post 3 days of meropenem. -Podiatry consulted S/p bedside debridement S/p amputation of necrotic second toe of her left foot (05/19/2023) -Wound care consulted. Anemia -Patient with hemoglobin of 10.9 at the time of admission which decreased to 8.7. Repeat hemoglobin of 9.4 and a.m. labs showing hemoglobin of 9.2. Patient has remained asymptomatic. -Patient has remained asymptomatic with regards to lightheadedness and dizziness. However, she is endorsing weakness, which uncertain if related to current anemia or current infection. -Consider possible that her current anemia is dilutional given the fluids she has been given to manage her sepsis. -If hemoglobin is below 7 or if patient has hemoglobin approximating 7 and is symptomatic, will consider transfusion. Abdominal pain // Constipation -Patient's abdominal pain improved after having multiple bowel movements yesterday after the addition of MiraLAX 3 times daily. -Will change MiraLAX order to daily and to as needed. Recurrent UTI -Patient was on extended course of Macrobid for UTI. -Previous UTIs grew ESBL. -UA positive for UTI, but urine cultures only growing normal radha. -Given current abdominal pressure/tenderness, will repeat urinalysis and urine culture to fully rule out possibility of a UTI. DM-II, uncontrolled with associated peripheral neuropathy -Hemoglobin A1c 8.8% -Hold home medications. -Sliding scale initiated. Pharmacist diabetes management consulted. DAVID -Resolved -Creatinine improved to 0.92 this morning, which is at patient's baseline. -Monitor with morning lab Hypothyroidism -Continue home medications. -TSH of 1.047 at time of admission. Gout - Continue home meds HTN -Hold antihypertensives due to current soft BP. A-fib - On Xarelto - Monitor in telemetry Fluids: NSS at 75 mL an hour Nutrition: DM 2 and heart healthy Code status: Full code DVT ppx: Continue home Xarelto PT/OT: Ordered Dispo: PCU/telemetry Admission and Anticipated Discharge Date Admission Date: May 16, 2023 Supervising Physician Co-Signing Physician Notes Attending attestation Pt seen and examined in concert with Dr. Starks. In agreement with the documented findings as noted in the resident documentation with any exceptions or additions as noted here. Continued improvement of abdominal discomfort with bowel movement and without urinary complaint directly. On examination, S1/S2 nl RRR no MCG. CTAB. Abd NT/ND BS+ve Sepsis with +ve BCx pending, likely L foot ulcer/gangrene source s/p debridement and amputation - ortho consult - continue daptomycin pending speciation and sensitivities. h/o ercurrent UTI h/o ESBL - completed 3 days of meropenem - repeat UA turbid, blood, leuks but without urinary symptoms Anemia, acute on chronic - likely lab variance without symptoms apparent. Trend AML, consider FOBT with changes. DMII - improved glycemic control on basal bolus regimen. Continue to monitor and adjust. Else see resident documentation as noted. Subjective Ms. Andrews is a 77-year-old female with recent history of a UTI diagnosis which was treated with Macrobid for 2 weeks, which was completed around 2 days prior to admission. Ever since she finished her antibiotics, she has been referring feeling weak as well as some chills nausea and lightheadedness. She does have a history of ESBL UTIs. Patient had met SIRS criteria in the ED, therefore she was admitted for sepsis. Patient was evaluated at bedside and found awake alert and oriented in all spheres, afebrile, no acute distress. Patient refers improvement with regards to her clinical status in comparison to time of admission, in particular regarding her weakness and general malaise. Also referring improvement with regard to abdominal pain/distention with the more bowel movements that she has. Still denying any urinary symptoms. Denies fevers, chills, chest pain, shortness of breath, nausea, vomiting, diarrhea, or any other systemic symptoms. Review of Systems Review of Systems: As per HPI Physical Exam Physical Exam: GENERAL: Awake alert and oriented, calm, in no acute distress HEAD: Atraumatic and normocephalic EYES: EOM intact THROAT: Normal to visual inspection CARDIO: Regular rate and rhythm, no rubs murmurs or gallops appreciated RESPIRATORY: Clear to auscultation bilaterally, normal respiratory effort, no respiratory distress GI: moderate distention, generalized pressure/tenderness that is improved jojo red to yesterday but still present, no guarding or rebound tenderness EXTREMITIES: Upper extremities normal bilaterally, waffle boots noted bilaterally, left foot covered with bandages after recent second left toe amputation, bandages were clean and dry Results & Data Results & Data Vital Signs (Past 12 Hours) Vital Signs Temp Pulse Pulse Resp BP Pulse Ox Pulse Ox 05/20/23 07:44 05/20/23 07:35 36.9 C 73 18 130/67 92 05/20/23 07:12 73 05/20/23 03:06 36.9 C 74 18 127/66 95 05/19/23 22:00 96 O2 Del Method O2 Del Method O2 Flow Rate 05/20/23 07:44 Nasal Cannula 1 05/20/23 07:35 Nasal Cannula 3 05/20/23 07:12 05/20/23 03:06 Nasal Cannula 2.0 05/19/23 22:00 Room Air
--- NOTE | 2023-05-20 14:04 | XCELERA ---
[id number] \\[id number]
--- NOTE | 2023-05-20 19:18 | Orthopedic Progress Note ---
Date of Service May 20, 2023 Assessment & Plan (1) Diabetic ulcer of left foot: Plan: Patient seen and evaluated at bedside in S236-1 with Eriberto present. Patient is status post day #1 left second toe amputation and diabetic foot wound debridement Dry, sterile dressing changed including 4x4, kerlix. Continue in waffle boots. Thank you for allowing me to participate in the care of this Patient. Will continue to follow while Patient remains in house. (2) Cellulitis: (3) Diabetes mellitus, type 2: Admission and Anticipated Discharge Date Admission Date: May 16, 2023 Subjective Patient seen at bedside in room S326-1. Patient is status post day #1 left second toe amputation and left diabetic foot wound debridement. She is seen with Eriberto present. Patient has no complaints. Physical Exam Constitutional: cooperative and comfortable Eyes: normal visual singh by confrontation Neck: normal visual inspection and trachea midline Respiratory: normal respiratory effort Cardiovascular: Vessels: posterior tibial pulses present and dorsalis pedis pulses present Musculoskeletal: Extremities: + amputation noted (Left second toe amputation) and + foot abnormality (Rocker bottom derformity consistent with Charcot Arthropathy) Skin: + ulcer (Right Lateral ankle full thickn ess, Left submet 1 full thickness ulcer) Psychiatric: Orientation: oriented to person and cooperative Results & Data Vital Signs (Past 12 Hours) Vital Signs Temp Pulse Pulse Resp BP BP Pulse Ox 05/20/23 15:43 36.9 C 74 19 114/69 94 05/20/23 14:59 74 05/20/23 11:59 36.6 C 81 18 119/69 91 05/20/23 11:37 95 05/20/23 07:44 05/20/23 07:35 36.9 C 73 18 130/67 92 O2 Del Method O2 Flow Rate 05/20/23 15:43 Room Air 05/20/23 14:59 05/20/23 11:59 Room Air 05/20/23 11:37 Nasal Cannula 1 05/20/23 07:44 Nasal Cannula 1 05/20/23 07:35 Nasal Cannula 3 (2) Cellulitis Laterality: left Site of cellulitis: extremity Site of cellulitis of extremity: lower extremity Qualified Code(s): L03.116 - Cellulitis of left lower limb
[2023-05-20] MEDS ORDERED: LANTUS PER UNIT CHARGE SQ ONE (21:31)
[2023-05-20] MEDS: LANTUS PER UNIT CHARGE SQ ONE (22:16)
[2023-05-21] MEDS: LANTUS PER UNIT CHARGE SQ SCH ×2 (09:09→21:37)
--- NOTE | 2023-05-21 09:26 | Hospitalist Progress Note ---
Date of Service May 21, 2023 Assessment & Plan (1) Sepsis: (2) DAVID (acute kidney injury): (3) Chronic ulcer of left foot: (4) Recurrent UTI (urinary tract infection): (5) Diabetes mellitus, type 2: (6) Hypothyroidism: (7) Gout: (8) Hypertension: (9) Paroxysmal atrial fibrillation: (10) Toe necrosis: (11) Status post amputation of toe of left foot: Plan Ms. Savage is a 77-year-old female who was admitted to our service for management of sepsis secondary to UTI. Patient also found to be hyperglycemic with a blood sugar above 400 while in the emergency department. Staph aureus Bacteremia -Patient with wound cultures positive for Staph aureus and now 1 bottle from blood culture positive for staph species -Leukocytosis with improvement today (13.73 compared to 14.31 yesterday) -Antibiotic changed to IV cefazolin given cultures growing MSSA. -Repeat blood cultures pending -TTE with mild mitral regurgitation and negative for valvular vegetations. Unchanged from ECHO from 03/02/22. -ID consult placed for recommendations regarding ultimate disposition with antibiotic therapies. Sepsis // Necrotic 2nd left toe // Chronic ulcer of left foot -Given negative urine culture, source of sepsis likely patient's chronic ulcers or necrotic second left toe -Wound cultures growing MSSA. - Blood culture with staph aureus, as detailed above. -No fevers recorded today and vital signs have remained stable. Blood pressures stable. -Continue on NSS at 75 mL an hour. -Antibiotic coverage with cefazolin. Status post 3 days of meropenem and 2 days of daptomycin. -Podiatry consulted S/p bedside debridement S/p amputation of necrotic second toe of her left foot (05/19/2023) -Wound care consulted. Anemia -Stable with a.m. labs showing hemoglobin of 9.7 -Consider possible that her current anemia is dilutional given the fluids she has been given to manage her sepsis. -If hemoglobin is below 7 or if patient has hemoglobin approximating 7 and is symptomatic, will consider transfusion. Abdominal pain // Constipation -Patient's abdominal pain improved after having multiple bowel movements yesterday after the addition of MiraLAX 3 times daily. -Will change MiraLAX order to daily and to as needed. Recurrent UTI -Patient was on extended course of Macrobid for UTI. -Previous UTIs grew ESBL. -UA positive for UTI, but urine cultures only growing normal radha. -Given current abdominal pressure/tenderness, will repeat urinalysis and urine culture to fully rule out possibility of a UTI. DM-II, uncontrolled with associated peripheral neuropathy -Hemoglobin A1c 8.8% -Hold home medications. -Sliding scale initiated. Pharmacist diabetes management consulted. DAVID -Resolved -Creatinine improved to 0.92 this morning, which is at patient's baseline. -Monitor with morning lab Hypothyroidism -Continue home medications. -TSH of 1.047 at time of admission. Gout - Continue home meds HTN -Hold antihypertensives due to current soft BP. A-fib - On Xarelto - Monitor in telemetry Dispo: Anticipate possible discharge to short-term rehab Fluids: NSS at 75 mL an hour Nutrition: DM 2 and heart healthy Code status: Full code DVT ppx: Continue home Xarelto Admission and Anticipated Discharge Date Admission Date: May 16, 2023 Supervising Physician Co-Signing Physician Notes Attending attestation I personally examined the patient and verified all porter points of history and exam, discussed case, and agree with decision making with Dr Starks Feels pretty good overall. Minimal foot pain. Notes that she had a very severe sepsis hospitalization with prolonged IV antibiotics last year. Would like to go to rehab. Vitals noted, in general she is awake and alert pleasant no distress. HEENT normocephalic atraumatic mucous membranes moist. Breathing unlabored no accessory muscle use good effort. Skin shows no rashes no pallor or icterus. Neuro without focal deficits. Left foot wound healing nicely, surgical site appears clean/dry/intact, no tracking erythema no exudate no dehiscence. Diabetic foot infection/osteomyelitis with presumptive bacteremia (only 1 out of 2, but matches what grew in her foot) send sepsis present on admissionimproving nicely, switch to beta-lactam antibiotics given MSSA, ask ID for assistance and duration/duration needing to be IV versus p.o.p.o. Appreciate podiatry assistance. PT/OT eval and treat, anticipate rehab. h/o ercurrent UTI h/o ESBL - Without urinary symptoms, would not continue to treat currently Anemia, acute on chronic - likely lab variance without symptoms apparent. Trend AML, consider FOBT with changes. DMII - continue current management, after discharge from rehab, may need escalated med regimen, lifestyle changes. otherwise as above Subjective Ms. Andrews is a 77-year-old female with recent history of a UTI diagnosis which was treated with Macrobid for 2 weeks, which was completed around 2 days prior to admission. Ever since she finished her antibiotics, she has been referring feeling weak as well as some chills nausea and lightheadedness. She does have a history of ESBL UTIs. Patient had met SIRS criteria in the ED, therefore she was admitted for sepsis. Patient was evaluated at bedside and found awake alert and oriented in all spheres, afebrile, no acute distress. Patient refers improvement in her weakness and general malaise compared to yesterday, but still endorsing weakness. She also refers having persistent abdominal pressure mostly in lower quadrants that is slightly improved after bowel movements Still denying any urinary symptoms. Denies fevers, chills, chest pain, shortness of breath, nausea, vomiting, diarrhea, or any other systemic symptoms. Review of Systems Review of Systems: As per HPI Physical Exam Physical Exam: GENERAL: Awake alert and oriented, calm, in no acute distress HEAD: Atraumatic and normocephalic EYES: EOM intact THROAT: Normal to visual inspection CARDIO: Regular rate and rhythm, no rubs murmurs or gallops appreciated RESPIRATORY: Clear to auscultation bilaterally, no wheezing, normal respiratory effort, no respiratory distress GI: moderate distention, generalized pressure/tenderness that is improved compared to yesterday but still present, no guarding or rebound tenderness EXTREMITIES: Upper extremities normal bilaterally, waffle boots noted bilaterally, left foot covered with bandages after recent second left toe amputation, bandages were clean and dry, wound at site of second left toe amputation with dried blood but no active bleeding or drainage Results & Data Results & Data Vital Signs (Past 12 Hours) Vital Signs Temp Pulse Pulse Resp BP BP Pulse Ox 05/21/23 07:20 36.7 C 67 18 120/71 94 05/21/23 03:28 36.4 C L 67 18 102/60 96 05/21/23 00:00 72 05/20/23 23:59 36.5 C 70 20 108/61 94 05/20/23 22:00 O2 Del Method O2 Del Method 05/21/23 07:20 Room Air 05/21/23 03:28 Room Air 05/21/23 00:00 05/20/23 23:59 Room Air 05/20/23 22:00 Room Air
[2023-05-21 09:52] LABS: Basophils # (auto) 0.06 K/uL (0.00-0.20); Basophils % (auto) 0.4 %; Eosinophils # (auto) 0.14 K/uL (0.00-0.50); Hematocrit (blood only) 30.2 % (37.0-47.0); Hemoglobin 9.7 g/dl (12.0-16.0); Immature Granulocytes % (auto) 3.6 %; Lymphocytes # (auto) 1.79 K/uL (1.20-3.40); Mean Corpuscular Hemoglobin 31.4 pg (25.0-34.0); Mean Corpuscular Hgb Conc 32.1 g/dL (32.0-36.0); Mean Corpuscular Volume 97.7 fL (80.0-100.0); Mean Platelet Volume 11.2 fL (9.4-12.4); Monocytes # (auto) 1.38 K/uL (0.11-0.59); Monocytes % (auto) 10.1 %; Neutrophils # (auto) 9.86 K/uL (1.40-6.50); Neutrophils % (auto) 71.9 %; Platelet Count 330 K/uL (130-400); RDW Coefficient of Variation 15.1 % (11.5-14.5); RDW Standard Deviation 52.9 fL (36.4-46.3); Red Blood Count 3.09 M/uL (4.20-5.40); White Blood Count 13.73 K/ul (4.8-10.8)
[2023-05-21 09:54] LABS: BUN Creatinine Ratio 17.5 (10-20); Calcium 7.7 mg/dl (8.6-10.3); Creatinine Clr Calc Pharmacy 47.3 ml/min; Est GFR (African American) 60.3 ml/min; Potassium 3.9 mmol/L (3.5-5.1)
[2023-05-21] MEDS: ceFAZolin 2000MG 2,000 MG/15 ML SYR IV SCH (12:35)
--- NOTE | 2023-05-21 14:06 | Pharmacy Report ---
Pharmacy Glycemic Short Note 2 - Date of Service May 21, 2023 - Glycemic Short BSG Results (Last 24 hours): 05/20/23 05/20/23 05/21/23 16:42 20:58 07:18 Glucose POC Glucose 115 H 111 H 111 H 05/21/23 05/21/23 08:59 11:23 Glucose 215 H POC Glucose 229 H OUTPATIENT ANTIDIABETIC REGIMEN: * metformin 500mg QPM (cannot tolerate higher doses d/t diarrhea) * Lantus 13 units SQ QAM * Trulicity 4.5mg/0.5mL SQ weekly (has not been able to get due to supply chain issues) * HbA1c 8.8% 05/17/23 ASSESSMENT: 05/21 * Patient received total of 79 units of insulin yesterday, of which 40 units were basal insulin * Fasting BSG 111 mg/dL - will continue same basal, however have lower parameters in case BSGs trend downward. Insulin needs decreasing over past couple of days * No change to CF/CR 05/18 * Nadia received 114 units of insulin yesterday (41 basal, 12 units IV regular insulin boluses (5+7), 73 bolus) * Fasting BSG improved this AM, but still elevated, will aim to give same basal dose as yesterday (approximately a weight based stress of 3) allowing up to a 20% increase * Novolog parameters tightened significantly, BSGs much improved * She continues on her home prednisone as well as meropenem and IV fluids. DAVID improving 05/17 * Nadia is a 77 YOF admitted with general malaise and increased BSGs. She has a history of type 2 diabetes. Pharmacy has been consulted to assist with glyc emic management while inpatient. * BSG elevated on admission, home dose of Lantus given last night, BSG elevations persisted into this AM (carbs not covered yesterday evening). Basal insulin at a weight based stress of 2 given early this morning, and then continuing BID. Will change scheduled regimen to allow for a smaller dose in the evening based on BSG to prevent hypoglycemia. * BSGs still elevated at lunchtime, 5 units of IV regular insulin given in addition to Novolog to help bring down BSG values * She is currently on meropenem and daptomycin, her home prednisone 5mg was continued, and she has NS @ 75mL/hr running. * Novolog initated at a weight based stress of 2.5, will tighten this evening if BSGs remain elevated. PLAN FOR INPATIENT GLYCEMIC CONTROL: * Hold outpatient diabetes medications * Basal insulin * Lantus 20 units SQ QAM * Lantus 15-20 units SQ HS (see eMAR for additional details) * Bolus insulin * NovoLog per scale ACHS or Q6hrs while NPO * Goal Range: Low 110 mg/dL - High 140 mg/dL * Correction Factor: 12 mg/dL/unit * Nutritional / Prandial insulin per carb ratio of 1 unit per 4 grams CHO consumed
--- NOTE | 2023-05-21 17:13 | Infectious Disease Consult ---
Date of Consultation May 21, 2023 Assessment & Plan (1) Sepsis: (2) Diabetic ulcer of left foot: (3) Status post amputation of toe of left foot: (4) Diabetes mellitus, type 2: Plan 77yo F with h/o T2DM, CAD s/p CABG, psoriatic arthritis on chronic prednisone, gout, afib, hypothyroidism, HTN HLD who presented on 05/16 with not feeling well x few days with weakness, chills, left foot discharge. Found to be febrile, initially on RA but did require O2. WBC 13.4, Cr 1.46>1.03. LFT wnl. ESR 27, CRP 16.96. UA > 30 WBC. CXR negative. CTH negative. Foot CT with pressure lesion subjacent to first MT head, no e/o acute OM. She was admitted with sepsis and c/f UTI, left foot ulcer (recently weeping). She was seen by ortho and underwent bedside debridement on 05/18, which showed significant necrotic tissue. S/p OR 05/19 and underwent left second toe amputation and left sub-met 1 diabetic foot ulcer debridement (per op note, left second toe removed at first MTP joint and sent to path, left subMT 1 ulcer was debrided down to subcutaneous tissue). TTE negative for vegetations. ID consulted for MSSA bacteremia. Bacteremia likely in setting of foot infection. I would ensure she doesnt have any seeding to other sources (ie spine, joints, any e/o abscesses), as this would alter management. Though CT did not show e/o OM in her foot, will need to f/u pathology report to see if there was any evidence of bone infection and ?whether all of it was removed. Duration of therapy will depend on above. If no OM is present or any other distal sites of infection, then she can be treated for MSSA bacteremia for a duration of 2-4 weeks. Since source is likely removed (ie toe), then this can be 2 weeks. I will see patient with telepresenter tomorrow for a better assessment. # MSSA bacteremia # Left foot diabetic infection s/p 2nd toe amputation and ulcer debridement 05/19 # h/o T2DM - continue on cefazolin 2g IV q8h - f/u pathology report from OR specimen - f/u repeat blood cultures from 05/20 - assess for any distant sites of MSSA seeding (ie back pain/spinal tenderness, joint swelling/pain/redness, psoas abscess) if present would pursue further workup - will see patient tomorrow with telepresenter ID will continue to follow. If questions or concerns, contact Infectious Disease Call Center . Emmy Rocha MD [facility], Division of Infectious Diseases [facility]: [phone] Consultation Information This patient recommendation is based on a telemedicine consult request which was completed asynchronously through chart review and information provided by the primary physician. The patient was not seen or examined today. The evaluation is consultative in nature and all patient care and treatment decisions can either be accepted or rejected by the patient's primary hospital-based treating physician using their own independent medical judgment for their patient. Instrumentation [employer] Controls Designer contact information: Please call [facility] Call Center [phone]. (Phone Number For Physician Use Only) Time Spent Reviewing Chart: 31+ minutes History of Present Illness Reason for Consultation: gram positive bacteremia Attending Physician: Vishal Franklin DO History of Present Illness 77yo F with h/o T2DM, CAD s/p CABG, psoriatic arthritis on chronic prednisone, gout, afib, hypothyroidism, HTN HLD who presented on 05/16 with not feeling well x few days. She was recently diagnosed with UTI and started on Macrobid x 2 weeks, which was completed 2d prior to admission. She had weakness and chills, urinary frequency. Has had discharge on her left foot starting a few days ago. Also with lightheadedness and nausea, episodes of confusion. Found to be febrile, initially on RA but did require O2. WBC 13.4, Cr 1.46>1.03. LFT wnl. UA > 30 WBC. CXR negative. CTH negative. Foot CT with pressure lesion subjacent to first MT head, no e/o acute OM. She was admitted with sepsis and c/f UTI, left foot ulcer (recently weeping). She was seen by ortho and underwent bedside debridement on 05/18, which showed significant necrotic tissue. S/p OR 05/19 and underwent left second toe amputation and left sub-met 1 diabetic foot ulcer debridement (per op note, left second toe removed at first MTP joint and sent to path, left subMT 1 ulcer was debrided down to subcutaneous tissue). TTE negative for vegetations. ID consulted for MSSA bacteremia. Unable to see patient as no telepresenter available at this time. Allergies Allergy/AdvReac Type Severity Reaction Status Date / Time sulfamethoxazole Allergy Intermediate Hives Verified 05/16/23 20:35 [From Bactrim] tetanus toxoid, adsorbed Allergy Intermediate LOCALIZED Verified 05/16/23 20:35 REACTION (arm swelling), MADE HER FEEL SICK trimethoprim [From Bactrim] Allergy Intermediate Hives Verified 05/16/23 20:35 amoxicillin AdvReac Intermediate "GOT Verified 05/16/23 20:35 C-DIFF" dalbavancin [From Dalvance] AdvReac Intermediate Vomiting Verified 05/16/23 20:35 minocycline AdvReac Intermediate HEADACHES Verified 05/16/23 20:35 tetracycline AdvReac Intermediate HEADACHES Verified 05/16/23 20:35 Home Medications Medication Instructions Recorded Confirmed Type gabapentin 400 mg capsule 400 mg PO TID 02/19/18 05/16/23 History multivitamin 1 tab PO QAM 02/19/18 05/16/23 History potassium 99 mg tablet 1 tab PO QPM 02/19/18 05/16/23 History cyanocobalamin (B12)-cobamamide 1,000 mcg sublingual QAM 03/12/18 05/16/23 History 5,000 mcg-100 mcg sublingual tablet (B-12 Plus) nitroglycerin 0.4 mg sublingual 0.4 mg sublingual Q5M PRN Chest 03/29/20 05/16/23 Rx tablet (Nitrostat) Pain #25 tabs calcium carbonate 500 mg-vitamin 1 tab PO BID 06/14/20 05/16/23 History D3 5 mcg (200 unit) tablet (Calcium 500 + D) conjugated estrogens 0.625 mg/gram 0.625 mg vaginal 2XWK 03/07/21 05/16/23 History vaginal cream (Premarin) ferrous sulfate 325 mg (65 mg 325 mg PO Q OTHER DAY 05/16/21 05/16/23 History iron) tablet (iron) neomycin-bacitracn Zn-polymyxn 3.5 1 applic topical DIRECTED PRN 10/18/21 05/16/23 History mg-400 unit-5,000 unit top oint pkt skin irritation ascorbic acid (vitamin C) 500 mg 500 mg PO DAILY 02/28/23 02/21/24 History tablet (Vitamin C) prednisone 5 mg tablet 5 mg PO QAM 05/23/22 05/16/23 History rivaroxaban 15 mg tablet (Xarelto) 15 mg PO QDD 05/23/22 05/16/23 History metformin 500 mg tablet 500 mg PO QPM #90 tabs 07/19/22 05/16/23 Rx atorvastatin 80 mg tablet 80 mg PO HS #90 tabs 08/16/22 05/16/23 Rx blood sugar diagnostic (OneTouch #100 ea 11/10/22 04/27/23 Rx Verio test strips) lancets 30 gauge (OneTouch Delica #100 ea 11/10/22 04/27/23 Rx Plus Lancet) levothyroxine 125 mcg tablet 125 mcg PO DAILY #30 tabs 12/05/22 05/16/23 Rx blood-glucose meter (OneTouch #1 ea 12/26/22 04/27/23 Rx Verio Flex Meter) pen needle, diabetic 32 gauge x #100 ea 12/28/22 04/27/23 Rx 5/32" (BD Daly 2nd Gen Pen Needle) pen needle, diabetic 32 gauge x #100 ea 12/29/22 04/27/23 Rx 5/32" (BD Daly 2nd Gen Pen Needle) metoprolol succinate 50 mg 50 mg PO BID #180 tabs 01/29/23 05/16/23 Rx tablet,extended release 24 hr dulaglutide 4.5 mg/0.5 mL 4.5 mg (0.5 mL) subcut WEEKLY #2 mL 04/02/23 05/16/23 Rx subcutaneous pen injector mirabegron 50 mg tablet,extended 50 mg PO DAILY #90 tabs 04/09/23 05/16/23 Rx release 24 hr (Myrbetriq) methenamine hippurate 1 gram tablet 1 g PO BID #180 tabs 04/12/23 05/16/23 Rx nitrofurantoin 100 mg PO BID #28 caps 04/27/23 05/16/23 Rx monohydrate/macrocrystals 100 mg capsule (Macrobid) allopurinol 100 mg tablet 100 mg PO QAM 05/16/23 05/16/23 History amiodarone 200 mg tablet 200 mg PO QAM 05/16/23 05/16/23 History cyclosporine 0.05 % eye drops in a 1 drp OPB Q12H 05/16/23 05/16/23 History dropperette (Restasis) diclofenac sodium 1 % topical gel 2 g topical QID PRN Pain 05/16/23 05/16/23 History duloxetine 30 mg capsule,delayed 30 mg PO QAM 05/16/23 05/16/23 History release esomeprazole magnesium 40 mg 40 mg PO QAM 05/16/23 05/16/23 History capsule,delayed release famotidine 40 mg tablet 40 mg PO QPM 05/16/23 05/16/23 History insulin glargine 100 unit/mL (3 4 unit subcut DIRECTED 05/16/23 05/16/23 History mL) subcutaneous pen (Lantus Solostar U-100 Insulin) triamterene 37.5 1 tab PO QAM 05/16/23 05/16/23 History mg-hydrochlorothiazide 25 mg tablet valacyclovir 500 mg tablet 500 mg PO QPM 05/16/23 05/16/23 History Patient History Medical History (Updated 05/19/23 @ 09:27 by Gertrude Starks MD) Toe necrosis Sepsis Encounter for colorectal cancer screening Chest pain RE-OCCURING ON OCC/ MOST RECENT LAST WEEK / USED NITRO FOR DENIES CHANGE IN BASELINE OCCURENCE DETAILS PT HAS DISCUSSED PAST OCCURENCES WITH DR OROPEZA History of colon polyps 8-12/01 were normal and 1 something abdnormal/reason for upcoming colonoscopy Incomplete bladder emptying self cath tid Overactive bladder Wheelchair dependence pt states she can stand and pivot on her own On antibiotic therapy preventative for recurring wound infection to rt foot and recurring UTIs - abx tx through picc line completed 3 - 4 weeks ago current : wound on foot doing really well per pt/no current s/s uti History of ESBL E. coli infection Rectal ulcer hx Arthritis Charcot's joint of foot in type 2 diabetes mellitus Sensorineural hearing loss of both ears Hemorrhoids, internal, with bleeding hx Stress incontinence in female Paroxysmal atrial fibrillation dx 2015 - on xarelto - follows with Dr. 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 CAD (coronary artery disease) CABG X 3 (2014) Fibromyalgia Psoriatic arthritis ON CHRONIC PREDNISONE Osteoarthritis Gout IBS (irritable bowel syndrome) Diabetes mellitus, type 2 NIDDM Hypothyroidism Anemia hx Myocardial Infarction 2014 Hypertension Hyperlipidemia Surgical History (Updated 05/19/23 @ 09:27 by Gertrude Starks MD) Status post amputation of toe of left foot History of surgery picc line & removal (1 mon ago) History of left knee surgery 2009, d/t injury History of carpal tunnel surgery of left wrist (~04/20/20) History of repair of rotator cuff RIGHT. 03/12/2018. DONE AT [facility]. BLOCK WITH LMA. NO ISSUES. History of dilatation and curettage History of bilateral tubal ligation Charcot's joint of foot RIGHT FOOT (4 SURGERIES TOTAL) History of total knee replacement LEFT History of ankle surgery LEFT History of surgery BLADDER STIMULATOR IMPLANTED IN BACK- not sure if currently working History of bladder repair surgery R/T URINARY LEAKAGE History of colonoscopy History of tooth extraction History of tonsillectomy History of adenoidectomy History of cataract surgery RIGHT/LEFT History of coronary artery bypass graft CABG X 3 (2014) History of cardiac cath 2014= NO STENTS Family History Mother Family hx of colon cancer Cardiac disorder Colorectal cancer Cancer Hypertension Father Cardiac disorder Lung cancer Hypertension Grandmother (Maternal) Stroke Other No family history of adverse response to anesthesia Denies family history of Ovarian cancer Breast cancer Social History Smoking Status: Never smoker Second Hand Exposure: No; Do You Dip or Chew Tobacco: No; Hx Alcohol Use: Yes Alcohol type: wine Alcohol Intake Frequency: Monthly or Less Hx Substance Use: No Preferred Language: Vincentian Communication Ability: Effective Visual Impairment: Limited Hearing Ability: Use of Hearing Aid Ui Designer Required: No Beliefs That Will Affect Care: None marital status: Current Living Situation: Spouse current occupational status: retired Other Information That Helps Us Care for You: No Feels Safe at Home: Yes Safety Concerns: Feels Safe At This Time Diet: diabetic and regular caffeine: No Do you think of yourself as: straight/heterosexual Gender Identity: Female Assistive Devices: Special Shoe and Wheelchair Results & Data Vital Signs (Past 12 Hours) Vital Signs Temp Pulse Pulse Resp BP Pulse Ox O2 Del Method 05/21/23 16:05 37.0 C 72 18 108/59 L 93 Room Air 05/21/23 15:20 73 05/21/23 11:04 36.6 C 72 18 110/44 L 91 Room Air 05/21/23 10:09 68 05/21/23 07:20 36.7 C 67 18 120/71 94 Room Air Laboratory Results Labs reviewed Diagnostic Findings Imaging reviewed (1) Sepsis Sepsis acute organ dysfunction status: without acute organ dysfunction Sepsis type: sepsis due to unspecified organism Qualified Code(s): A41.9 - Sepsis, unspecified organism
--- NOTE | 2023-05-21 17:29 | Billing Data ---
Date of Service May 21, 2023 Coding Level of Care Code 54963 SUB INP/OBS CARE MIN
[2023-05-22 08:18] LABS: Hematocrit (blood only) 27.3 % (37.0-47.0); Hemoglobin 8.7 g/dl (12.0-16.0); Mean Corpuscular Hemoglobin 31.2 pg (25.0-34.0); Mean Corpuscular Hgb Conc 31.9 g/dL (32.0-36.0); Mean Corpuscular Volume 97.8 fL (80.0-100.0); Mean Platelet Volume 10.6 fL (9.4-12.4); Platelet Count 360 K/uL (130-400); RDW Coefficient of Variation 14.9 % (11.5-14.5); Red Blood Count 2.79 M/uL (4.20-5.40); White Blood Count 14.12 K/ul (4.8-10.8)
[2023-05-22] MEDS: LANTUS PER UNIT CHARGE SQ SCH (08:38)
[2023-05-22 08:40] LABS: BUN Creatinine Ratio 18.6 (10-20); Creatinine Clr Calc Pharmacy 50.3 ml/min; Est GFR (African American) 64.8 ml/min; Est GFR (Non-African American) 55.9 ml/min; Potassium 3.9 mmol/L (3.5-5.1)
[2023-05-22 08:42] LABS: Basophils # (auto) 0.08 K/uL (0.00-0.20); Basophils % (auto) 0.6 %; Eosinophils # (auto) 0.21 K/uL (0.00-0.50); Eosinophils % (auto) 1.5 %; Immature Granulocytes # (auto) 0.72 K/uL (0.01-0.20); Immature Granulocytes % (auto) 5.1 %; Lymphocytes # (auto) 2.23 K/uL (1.20-3.40); Lymphocytes % (auto) 15.8 %; Monocytes # (auto) 1.41 K/uL (0.11-0.59); Neutrophils # (auto) 9.47 K/uL (1.40-6.50); RBC Morphology Unremarkable
--- NOTE | 2023-05-22 10:03 | Hospitalist Progress Note ---
Date of Service May 22, 2023 Assessment & Plan (1) Sepsis: (2) DAVID (acute kidney injury): (3) Chronic ulcer of left foot: (4) Recurrent UTI (urinary tract infection): (5) Diabetes mellitus, type 2: (6) Hypothyroidism: (7) Gout: (8) Hypertension: (9) Paroxysmal atrial fibrillation: (10) Toe necrosis: (11) Status post amputation of toe of left foot: Plan Ms. Savage is a 77-year-old female who was admitted to our service for management of sepsis secondary to UTI vs chronic ulcers. Staph aureus Bacteremia -Patient with wound cultures positive for Staph aureus and now 1 bottle from blood culture positive for staph species -Leukocytosis with WBC of 14.12 -Abs: Cefazolin -Repeat blood cultures pending -TTE with mild mitral regurgitation and negative for valvular vegetations. Unchanged from ECHO from 03/02/22. -ID consult placed: Ultimate disposition with regards to length of antibiotic therapy will depend mostly on final pathology results for her left toe that was amputated, mainly with regards to fully ruling out the possibility of osteomyelitis. If osteomyelitis is fully ruled out as per pathology report, patient may be treated with oral antibiotics for 2 to 4 weeks. Sepsis // Necrotic 2nd left toe // Chronic ulcer of left foot -Given negative urine culture, source of sepsis likely patient's chronic ulcers or necrotic second left toe -Wound cultures growing MSSA. - Blood culture with staph aureus, as detailed above. -No fevers recorded today and vital signs have remained stable. Blood pressures stable. -Antibiotic coverage with cefazolin. Status post 3 days of meropenem and 2 days of daptomycin. -Podiatry consulted S/p bedside debridement S/p amputation of necrotic second toe of her left foot (05/19/2023) -Wound care consulted. Anemia -Stable with a.m. labs showing hemoglobin of 8.7. Patient asymptomatic. -Consider possible that her current anemia is dilutional given the fluids she has been given to manage her sepsis. -If hemoglobin is below 7 or if patient has hemoglobin approximating 7 and is symptomatic, will consider transfusion. Abdominal pain // Constipation -Patient's abdominal pain improved after having multiple bowel movements yesterday after the addition of MiraLAX 3 times daily. -Will change MiraLAX order to daily and to as needed. Recurrent UTI -Patient was on extended course of Macrobid for UTI. -Previous UTIs grew ESBL. -UA positive for UTI, but urine cultures only growing normal radha. -Given current abdominal pressure/tenderness, will repeat urinalysis and urine c ulture to fully rule out possibility of a UTI. DM-II, uncontrolled with associated peripheral neuropathy -Hemoglobin A1c 8.8% -Hold home medications. -Sliding scale initiated. Pharmacist diabetes management consulted. DAVID -Resolved -Creatinine improved to 0.97 this morning, which is at patient's baseline. -Monitor with morning lab Hypothyroidism -Continue home medications. -TSH of 1.047 at time of admission. Gout - Continue home meds HTN -Hold antihypertensives due to current soft BP. A-fib - On Xarelto - Monitor in telemetry Dispo: Anticipate possible discharge to short-term rehab Nutrition: DM 2 and heart healthy Code status: Full code DVT ppx: Continue home Xarelto Admission and Anticipated Discharge Date Admission Date: May 16, 2023 Supervising Physician Co-Signing Physician Notes Attending attestation I personally examined the patient and verified all porter points of history and exam, discussed case, and agree with decision making with Dr Starks Feels pretty good overall. No complaints of pain. Awaiting rehab. Infectious disease input appreciated.. Vitals noted, in general she is awake and alert pleasant no distress. HEENT normocephalic atraumatic mucous membranes moist. Breathing unlabored no accessory muscle use good effort. Skin shows no rashes no pallor or icterus. Neuro without focal deficits. Left foot wound healing nicely, surgical site appears clean/dry/intact, no tracking erythema no exudate no dehiscence. Diabetic foot infection/osteomyelitis with presumptive bacteremia (only 1 out of 2, but matches what grew in her foot) send sepsis present on admissionimproving nicely, continue cefazolin, await pathology to determine duration. Stable for SNF/rehab emphasis given that the current treatment would not change, just the duration. h/o ercurrent UTI h/o ESBL - Without urinary symptoms, would not continue to treat currently Anemia, acute on chronic - likely lab variance without symptoms apparent. Trend AML, consider FOBT with changes. DMII - continue current management, after discharge from rehab, may need escal ated med regimen, lifestyle changes. otherwise as above Subjective Patient was evaluated at bedside and found awake alert and oriented in all spheres, afebrile, no acute distress. Patient reports no pain today, as well as improvement with regards to her generalized weakness.Denies fevers, chills, chest pain, shortness of breath, nausea, vomiting, diarrhea, or any other systemic symptoms. Review of Systems Review of Systems: As per HPI Physical Exam Physical Exam: GENERAL: Awake alert and oriented, calm, in no acute distress HEAD: Atraumatic and normocephalic EYES: EOM intact THROAT: Normal to visual inspection CARDIO: Regular rate and rhythm, no rubs murmurs or gallops appreciated RESPIRATORY: Clear to auscultation bilaterally, no wheezing, normal respiratory effort, no respiratory distress GI: moderate distention, Nontender, no guarding or rebound tenderness EXTREMITIES: Upper extremities normal bilaterally, waffle boots noted bilateral ly, left foot covered with bandages after recent second left toe amputation, bandages were clean and dry Results & Data Results & Data Vital Signs (Past 12 Hours) Vital Signs Temp Pulse Pulse Resp BP Pulse Ox O2 Del Method 05/22/23 07:18 36.4 C L 70 124/71 92 Room Air 05/22/23 00:09 Room Air 05/21/23 22:15 36.8 C 73 16 127/67 91 Room Air
--- NOTE | 2023-05-22 16:20 | Infectious Disease Progress Nt ---
Date of Service May 22, 2023 Assessment & Plan (1) Sepsis: (2) Diabetic ulcer of left foot: (3) Status post amputation of toe of left foot: (4) Diabetes mellitus, type 2: Plan 77yo F with h/o T2DM, CAD s/p CABG, psoriatic arthritis on chronic prednisone, gout, afib, hypothyroidism, HTN HLD who presented on 05/16 with not feeling well x few days with weakness, chills, left foot discharge. Found to be febrile, initially on RA but did require O2. WBC 13.4, Cr 1.46>1.03. LFT wnl. ESR 27, CRP 16.96. UA > 30 WBC. CXR negative. CTH negative. Foot CT with pressure lesion subjacent to first MT head, no e/o acute OM. She was admitted with sepsis and c/f UTI, left foot ulcer (recently weeping). She was seen by ortho and underwent bedside debridement on 05/18, which showed significant necrotic tissue. S/p OR 05/19 and underwent left second toe amputation and left sub-met 1 diabetic foot ulcer debridement (per op note, left second toe removed at first MTP joint and sent to path, left subMT 1 ulcer was debrided down to subcutaneous tissue). TTE negative for vegetations. ID consulted for MSSA bacteremia. Bacteremia likely in setting of foot infection. Awaiting pathology results, will need to see if there is any bone involvement and, if so, then whether this is any residual bone infection leftover. Note CT did not show e/o OM. Duration of therapy will depend on whether there is presence of and residual OM. If no OM is present, then she can be treated for MSSA bacteremia for a duration of 2-4 weeks. Since source is likely removed (ie toe), then this can be 2 weeks. If she has residual OM, then treatment will be 6 weeks. # MSSA bacteremia ngtd 05/20 # Left foot diabetic infection s/p 2nd toe amputation and ulcer debridement 05/19 # h/o T2DM - continue on cefazolin 2g IV q8h - f/u pathology report from OR specimen - duration of antibiotics pending above results ID will continue to follow. If questions or concerns, contact Infectious Disease Call Center . Emmy Rocha MD [facility], Division of Infectious Diseases [facility]: [phone] Admission and Anticipated Discharge Date Admission Date: May 16, 2023 Subjective Subsequent visit was provided via telemedicine using two-way real-time interactive telecommunication between the patient and the telemedicine provider. For the duration of the visit, the provider was performing the assessment from a different facility than the patient. This includesuse of bluetooth stethoscope forauscultationperformed by the telepresenter that the telemedicine provider can hear if described in the physical exam. Hands Assembler contact information: Please call [facility] Call Center . (Phone Number For Physician Use Only) After establishing a telemedicine visit, patient was: Patient was verified with two unique identifiers, Patient/authorized rep acknowledged consent and understanding and Gave permission to continue telehealth session Time Spent with Patient: Subsequent => 55 min Patient seen and examined. She reports feeling well. She says that when she was at home, she had discharge coming from her toe and skin changes localized there. She denies pain wu to neuropathy. No abdominal pain, vomiting, diarrhea. No dysuria, joint pains, swelling. She has chronic lower back pain that is not worse. Physical Exam Physical Exam: General: Awake, alert, no acute distress HEENT: NC/AT, EOMI, mmm Neck: supple Lungs: respirations non-labored Heart: nl peripheral perfusion Abdomen: soft, NT/ND Back: no spinal tenderness Ext: no LE edema, postop dressing over left foot Skin: no rash Results & Data Vital Signs (Past 12 Hours) Vital Signs Temp Pulse Pulse Resp BP BP Pulse Ox 05/22/23 14:26 36.7 C 65 16 120/67 94 05/22/23 11:17 36.7 C 73 110/59 L 92 05/22/23 07:18 36.4 C L 70 124/71 92 O2 Del Method 05/22/23 14:26 Room Air 05/22/23 11:17 Room Air 05/22/23 07:18 Room Air (1) Sepsis Sepsis acute organ dysfunction status: without acute organ dysfunction Sepsis type: sepsis due to unspecified organism Qualified Code(s): A41.9 - Sepsis, unspecified organism
--- NOTE | 2023-05-22 20:00 | Billing Data ---
Date of Service May 22, 2023 Coding Level of Care Code 54020 SUB INP/OBS CARE
--- NOTE | 2023-05-22 21:17 | Orthopedic Progress Note ---
Date of Service May 22, 2023 Assessment & Plan (1) Diabetic ulcer of left foot: Plan: Patient seen and evaluated at bedside in S236-1 with Eriberto present. Patient is status post day #3 left second toe amputation and diabetic foot wound debridement Dry, sterile dressing changed including 4x4, kerlix. Continue in waffle boots. Patient is weight bearing as tolerated. Thank you for allowing me to participate in the care of this Patient. Will continue to follow while Patient remains in house. (2) Cellulitis: (3) Diabetes mellitus, type 2: Admission and Anticipated Discharge Date Admission Date: May 16, 2023 Subjective Patient seen and examined at bedside in W352-1. Patient status post day #3 left second toe amputation and diabetic foot wound debridement. She reports feeling well. Patient has no complaints. Physical Exam Constitutional: cooperative and comfortable Eyes: normal visual singh by confrontation Neck: normal visual inspection and trachea midline Respiratory: normal respiratory effort Cardiovascular: Vessels: posterior tibial pulses present and dorsalis pedis pulses present Musculoskeletal: Extremities: + amputation noted (Left second toe amputation) and + foot abnormality (Rocker bottom derformity consistent with Charcot Arthropathy) Skin: + lesion (Left Sub-met 1 hyperkeratotic lesion), + ulcer (Right Lateral ankle full thickness, Left submet 1 full thickness ulcer) and + erythema (Bilateral feet periwound) Psychiatric: Orientation: oriented to person and cooperative Results & Data Vital Signs (Past 12 Hours) Vital Signs Temp Pulse Resp BP BP Pulse Ox O2 Del Method 05/22/23 19:51 36.8 C 73 14 125/69 94 Room Air 05/22/23 14:26 36.7 C 65 16 120/67 94 Room Air 05/22/23 11:17 36.7 C 73 110/59 L 92 Room Air (2) Cellulitis Laterality: left Site of cellulitis: extremity Site of cellulitis of extremity: lower extremity Qualified Code(s): L03.116 - Cellulitis of left lower limb
[2023-05-23 08:08] LABS: Hematocrit (blood only) 28.3 % (37.0-47.0); Hemoglobin 8.9 g/dl (12.0-16.0); Mean Corpuscular Hemoglobin 31.1 pg (25.0-34.0); Mean Corpuscular Hgb Conc 31.4 g/dL (32.0-36.0); Mean Platelet Volume 10.4 fL (9.4-12.4); Platelet Count 391 K/uL (130-400); RDW Standard Deviation 53.8 fL (36.4-46.3); Red Blood Count 2.86 M/uL (4.20-5.40); White Blood Count 13.08 K/ul (4.8-10.8)
--- NOTE | 2023-05-23 08:26 | Pharmacy Report ---
Pharmacy Glycemic Short Note 2 - Date of Service May 23, 2023 - Glycemic Short BSG Results (Last 24 hours): 05/22/23 05/22/23 05/22/23 07:42 11:25 16:37 Glucose 100 H POC Glucose 151 H 145 H 05/22/23 05/23/23 21:37 07:44 Glucose POC Glucose 165 H 127 H OUTPATIENT ANTIDIABETIC REGIMEN: * Metformin 500mg QPM (cannot tolerate higher doses d/t diarrhea) * Lantus 13 units SQ QAM * Trulicity 4.5mg/0.5mL SQ weekly (has not been able to get due to supply chain issues) HbA1c 8.8% 05/17/23 ASSESSMENT: 05/23: * BSGs well-controlled yesterday, ranging 114-165 mg/dL * Received 88 units of insulin (40 units of basal and 44 units of prandial/correctional bolus) * Fasting BSG of 127 mg/dL this morning * Continues on IV Ancef and 5 mg PO prednisone daily 05/21 * Patient received total of 79 units of insulin yesterday, of which 40 units were basal insulin * Fasting BSG 111 mg/dL - will continue same basal, however have lower parameters in case BSGs trend downward. Insulin needs decreasing over past couple of days * No change to CF/CR 05/18 * Nadia received 114 units of insulin yesterday (41 basal, 12 units IV regular insulin boluses (5+7), 73 bolus) * Fasting BSG improved this AM, but still elevated, will aim to give same basal dose as yesterday (approximately a weight based stress of 3) allowing up to a 20% increase * Novolog parameters tightened significantly, BSGs much improved * She continues on her home prednisone as well as meropenem and IV fluids. DAVID improving 05/17 * Nadia is a 77 YOF admitted with general malaise and increased BSGs. She has a history of type 2 diabetes. Pharmacy has been consulted to assist with glycemic management while inpatient. * BSG elevated on admission, home dose of Lantus given last night, BSG elevations persisted into this AM (carbs not covered yesterday evening). Basal insulin at a weight based stress of 2 given early this morning, and then continuing BID. Will change scheduled regimen to allow for a smaller dose in the evening based on BSG to prevent hypoglycemia. * BSGs still elevated at lunchtime, 5 units of IV regular insulin given in addition to Novolog to help bring down BSG values * She is currently on meropenem and daptomycin, her home prednisone 5mg was continued, and she has NS @ 75mL/hr running. * Novolog initated at a weight based stress of 2.5, will tighten this evening if BSGs remain elevated. PLAN FOR INPATIENT GLYCEMIC CONTROL: * Hold outpatient diabetes medications * Basal insulin * Lantus 20 units SQ BID * Bolus insulin * NovoLog per scale ACHS or Q6hrs while NPO * Goal Range: Low 110 mg/dL - High 140 mg/dL * Correction Factor: 12 mg/dL/unit * Nutritional / Prandial insulin per carb ratio of 1 unit per 4 grams CHO consumed
[2023-05-23 08:28] LABS: Calcium 8.3 mg/dl (8.6-10.3); Creatinine Clr Calc Pharmacy 48.7 ml/min; Est GFR (African American) 62.5 ml/min; Est GFR (Non-African American) 53.9 ml/min; Potassium 3.9 mmol/L (3.5-5.1)
[2023-05-23 08:29] LABS: Basophils # (auto) 0.07 K/uL (0.00-0.20); Basophils % (auto) 0.5 %; Eosinophils # (auto) 0.21 K/uL (0.00-0.50); Eosinophils % (auto) 1.6 %; Immature Granulocytes # (auto) 0.78 K/uL (0.01-0.20); Lymphocytes # (auto) 2.29 K/uL (1.20-3.40); Lymphocytes % (auto) 17.5 %; Monocytes # (auto) 1.29 K/uL (0.11-0.59); Monocytes % (auto) 9.9 %; Neutrophils # (auto) 8.44 K/uL (1.40-6.50); Neutrophils % (auto) 64.5 %
--- NOTE | 2023-05-23 09:43 | Hospitalist Progress Note ---
Date of Service May 23, 2023 Assessment & Plan (1) Sepsis: (2) DAVID (acute kidney injury): (3) Chronic ulcer of left foot: (4) Recurrent UTI (urinary tract infection): (5) Diabetes mellitus, type 2: (6) Hypothyroidism: (7) Gout: (8) Hypertension: (9) Paroxysmal atrial fibrillation: (10) Toe necrosis: (11) Status post amputation of toe of left foot: Plan Ms. Savage is a 77-year-old female who was admitted to our service for management of sepsis secondary to UTI vs chronic ulcers. Staph aureus Bacteremia -Patient with wound cultures positive for Staph aureus and now 1 bottle from blood culture positive for staph species -Leukocytosis with WBC of 13 (improved from 14.12) -Abx: Cefazolin -Repeat blood cultures negative to date -TTE with mild mitral regurgitation and negative for valvular vegetations. Unchanged from ECHO from 03/02/22. -ID consult placed: Ultimate disposition with regards to length of antibiotic therapy will depend mostly on final pathology results for her left toe that was amputated, mainly with regards to fully ruling out the possibility of osteomyelitis. If osteomyelitis is fully ruled out as per pathology report, patient may be treated with oral antibiotics for 2 to 4 weeks. Sepsis // Necrotic 2nd left toe // Chronic ulcer of left foot -Given negative urine culture, source of sepsis likely patient's chronic ulcers or necrotic second left toe -Wound cultures growing MSSA. -No fevers recorded today and vital signs have remained stable. Blood pressures stable. -Antibiotic coverage with cefazolin. Status post 3 days of meropenem and 2 days of daptomycin. -Podiatry consulted S/p bedside debridement S/p amputation of necrotic second toe of her left foot (05/19/2023) -Wound care consulted. Anemia -Stable with a.m. labs showing hemoglobin of 8.9. Patient asymptomatic. -If hemoglobin is below 7 or if patient has hemoglobin approximating 7 and is symptomatic, will consider transfusion. Abdominal pain // Constipation -Patient's abdominal pain improved after having multiple bowel movements yesterday after the addition of MiraLAX 3 times daily. -Will change MiraLAX order to daily and to as needed. Recurrent UTI -Patient was on extended course of Macrobid for UTI. -Previous UTIs grew ESBL. -UA positive for UTI, but urine cultures only growing normal radha. DM-II, uncontrolled with associated peripheral neuropathy -Hemoglobin A1c 8.8% -Hold home medications. -Sliding scale initiated. Pharmacist diabetes management consulted. DAVID -Resolved -Creatinine 1 this morning -Monitor with morning lab Hypothyroidism -Continue home medications. -TSH of 1.047 at time of admission. Gout - Continue home meds HTN -Hold antihypertensives due to current soft BP. A-fib - On Xarelto - Monitor in telemetry Dispo: Anticipate possible discharge to SNF for physical rehabilitation Nutrition: DM 2 and heart healthy Code status: Full code DVT ppx: Continue home Xarelto Admission and Anticipated Discharge Date Admission Date: May 16, 2023 Supervising Physician Co-Signing Physician Notes Attending attestation I personally examined the patient and verified all porter points of history and exam, discussed case, and agree with decision making with Dr Starks no new complaints, just awaiting SNF/rehab. Vitals noted, in general she is awake and alert pleasant no distress. HEENT normocephalic atraumatic mucous membranes moist. Breathing unlabored no accessory muscle use good effort. Skin shows no rashes no pallor or icterus. Neuro without focal deficits. Diabetic foot infection/osteomyelitis with presumptive bacteremia (only 1 out of 2, but matches what grew in her foot) send sepsis present on admissionimproving nicely, continue cefazolin, awaiting pathology to determine duration. Stable for SNF/rehab emphasis given that the current treatment would not change, just the duration. h/o ercurrent UTI h/o ESBL - Without urinary symptoms, would not continue to treat currently Anemia, acute on chronic - follow periodic CBC DMII - continue current management, after discharge from rehab, may need escalated med regimen, lifestyle changes. otherwise as above Subjective Patient was evaluated at bedside and found awake alert and oriented in all spheres, afebrile, no acute distress. Patient reports no pain today, as well as improvement with regards to her generalized weakness. Denies fevers, chills, chest pain, shortness of breath, nausea, vomiting, diarrhea, or any other systemic symptoms. Review of Systems Review of Systems: As per HPI Physical Exam Physical Exam: GENERAL: Awake alert and oriented, calm, in no acute distress HEAD: Atraumatic and normocephalic EYES: EOM intact THROAT: Normal to visual inspection CARDIO: Regular rate and rhythm, no rubs murmurs or gallops appreciated RESPIRATORY: Clear to auscultation bilaterally, no wheezing, normal respiratory effort, no respiratory distress GI: mild distention, Nontender, no guarding or rebound tenderness EXTREMITIES: Upper extremities normal bilaterally, waffle boots noted bilaterally, left foot covered with bandages after recent second left toe amputation, bandages with dry blood but no active bleeding or drainage Results & Data Results & Data Vital Signs (Past 12 Hours) Vital Signs Temp Pulse Resp BP Pulse Ox O2 Del Method 05/23/23 07:12 36.4 C L 67 16 121/63 94 Room Air
--- NOTE | 2023-05-23 13:33 | Billing Data ---
Date of Service May 23, 2023 Coding Level of Care Code 43312 SUB INP/OBS CARE
--- NOTE | 2023-05-23 17:06 | Infectious Disease Progress Nt ---
Date of Service May 23, 2023 Assessment & Plan (1) Sepsis: (2) Diabetic ulcer of left foot: (3) Status post amputation of toe of left foot: (4) Diabetes mellitus, type 2: (5) MSSA bacteremia: Plan 77yo F with h/o T2DM, CAD s/p CABG, psoriatic arthritis on chronic prednisone, gout, afib, hypothyroidism, HTN HLD who presented on 05/16 with not feeling well x few days with weakness, chills, left foot discharge. Found to be febrile, initially on RA but did require O2. WBC 13.4, Cr 1.46>1.03. LFT wnl. ESR 27, CRP 16.96. UA > 30 WBC. CXR negative. CTH negative. Foot CT with pressure lesion subjacent to first MT head, no e/o acute OM. She was admitted with sepsis and c/ f UTI, left foot ulcer (recently weeping). She was seen by ortho and underwent bedside debridement on 05/18, which showed significant necrotic tissue. S/p OR 05/19 and underwent left second toe amputation and left sub-met 1 diabetic foot ulcer debridement (per op note, left second toe removed at first MTP joint and sent to path, left subMT 1 ulcer was debrided down to subcutaneous tissue). TTE negative for vegetations. ID consulted for MSSA bacteremia. OR path report notes acute osteomyelitis of the amputated toe. I spoke to Dr. Cervantes regarding the path report and he feels like all bony infec tion was removed and she has clean margins. In this case, we can treat for bacteremia and skin/soft tissue infection. Since likely source of MSSA was removed, BCx negative within 2-4 days, no indwelling devices, negative TTE, and no evidence of metastatic sources of MSSA, we can treat for a duration of 2 weeks. I would obtain a follow up surveillance culture about 1 week after discontinuation of antibiotics. Abx: Cefepime 05/16 Meropenem 05/17-05/20 Daptomycin 05/17, 05/20-05/21 Cefazolin 05/19, 05/21-present # MSSA bacteremia ngtd 05/20 # Left diabetic foot infection - toe OM and SSTI s/p 2nd toe amputation and ulcer debridement 05/19 # h/o T2DM - continue on cefazolin 2g IV q8h - will plan for 2 weeks of IV antibiotics as below Discharge Plan: - on discharge, continue on cefazolin 2g IV q8h (if easier, can use 6g IV continuous infusion daily for ease of administration) - she will need 2 weeks of antibiotics (start 05/20 day of neg BCX, eot 06/01) - monitor weekly CBC w diff and CMP while on IV abx - please ensure she has follow up with either PCP or local ID provider - repeat a set of blood cultures 1 week after completion of cefazolin ID will discontinue active follow up at this time. Please do not hesitate to reconsult the Infectious Diseases service as needed. Emmy Rocha MD [facility], Division of Infectious Diseases IDConnect: [phone] Admission and Anticipated Discharge Date Admission Date: May 16, 2023 Subjective This patient recommendation is based on a telemedicine consult request which was completed asynchronously through chart review and information provided by the primary physician. The patient was not seen or examined today. The evaluation is consultative in nature and all patient care and treatment decisions can either be accepted or rejected by the patient's primary hospital-based treating physician using their own independent medical judgment for their patient. Time Spent Reviewing Chart: 31+ minutes Path report with acute osteomyelitis, toe has been removed, no residual suspected. Results & Data Vital Signs (Past 12 Hours) Vital Signs Temp Pulse Resp BP Pulse Ox O2 Del Method 05/23/23 15:24 36.8 C 66 16 117/61 93 Room Air 05/23/23 07:12 36.4 C L 67 16 121/63 94 Room Air Laboratory Results labs reviewed Micro: 05/16 MRSA screen: negative 05/16 RVP: neg 05/16 UCx: multiple organisms 05/16 BCx: MSSA in 1/ bottles 05/17 WCX L toe: Finegoldia magna, MSSA 05/17 WCX left foot: MSSA 05/17 WCX R ankle: MSSA 05/19 UCX: C glabrata 05/20 BCx: ngtd (1) Sepsis Sepsis acute organ dysfunction status: without acute organ dysfunction Sepsis type: sepsis due to unspecified organism Qualified Code(s): A41.9 - Sepsis, unspecified organism
[2023-05-23] MEDS: LANTUS PER UNIT CHARGE SQ SCH (21:01)
--- NOTE | 2023-05-23 21:55 | Orthopedic Progress Note ---
Date of Service May 23, 2023 Assessment & Plan (1) Diabetic ulcer of left foot: Plan: Patient seen and evaluated at bedside in S236-1 with Eriberto present. Patient is status post day #4 left second toe amputation and diabetic foot wound debridement Discussed source control and clear margins obtained during surgery. No residual osteomyelitis. Dry, sterile dressing changed including 4x4, kerlix. Continue in waffle boots. Patient is weight bearing as tolerated. Thank you for allowing me to participate in the care of this Patient. Will continue to follow while Patient remains in house. (2) Cellulitis: (3) Diabetes mellitus, type 2: Admission and Anticipated Discharge Date Admission Date: May 16, 2023 Subjective Patient seen at bedside status post left second toe amputation. Patient resting comfortably with no complaints. Eriberto, Patient's is present. Physical Exam Constitutional: cooperative and comfortable Eyes: normal visual singh by confrontation Neck: normal visual inspection and trachea midline Respiratory: normal respiratory effort Cardiovascular: Vessels: posterior tibial pulses present and dorsalis pedis pulses present Musculoskeletal: Extremities: + amputation noted (Left second toe amputation) and + foot abnormality (Rocker bottom derformity consistent with Charcot Arthropathy) Skin: + lesion (Left Sub-met 1 hyperkeratotic lesion), + ulcer (Right Lateral ankle full thickness, Left submet 1 full thickness ulcer) and + erythema (Bilateral feet periwound) Psychiatric: Orientation: oriented to person and cooperative Results & Data Vital Signs (Past 12 Hours) Vital Signs Temp Pulse Resp BP Pulse Ox O2 Del Method 05/23/23 19:14 36.8 C 70 16 129/65 94 Room Air 05/23/23 15:24 36.8 C 66 16 117/61 93 Room Air (2) Cellulitis Laterality: left Site of cellulitis: extremity Site of cellulitis of extremity: lower extremity Qualified Code(s): L03.116 - Cellulitis of left lower limb
[2023-05-24 08:10] LABS: Hematocrit (blood only) 29.1 % (37.0-47.0); Hemoglobin 9.1 g/dl (12.0-16.0); Mean Corpuscular Hgb Conc 31.3 g/dL (32.0-36.0); Mean Platelet Volume 10.6 fL (9.4-12.4); Platelet Count 412 K/uL (130-400); RDW Coefficient of Variation 14.8 % (11.5-14.5); RDW Standard Deviation 53.4 fL (36.4-46.3); Red Blood Count 2.94 M/uL (4.20-5.40); White Blood Count 12.14 K/ul (4.8-10.8)
[2023-05-24 08:35] LABS: BUN Creatinine Ratio 17.1 (10-20); Creatinine Clr Calc Pharmacy 43.9 ml/min; Est GFR (African American) 55.1 ml/min; Est GFR (Non-African American) 47.5 ml/min; Potassium 4.1 mmol/L (3.5-5.1)
[2023-05-24] MEDS: LANTUS PER UNIT CHARGE SQ SCH ×2 (08:38→21:47)
[2023-05-24 08:49] LABS: Basophils # (auto) 0.08 K/uL (0.00-0.20); Basophils % (auto) 0.7 %; Eosinophils # (auto) 0.24 K/uL (0.00-0.50); Immature Granulocytes # (auto) 0.82 K/uL (0.01-0.20); Immature Granulocytes % (auto) 6.8 %; Lymphocytes # (auto) 2.11 K/uL (1.20-3.40); Lymphocytes % (auto) 17.4 %; Monocytes # (auto) 1.14 K/uL (0.11-0.59); Monocytes % (auto) 9.4 %; Neutrophils # (auto) 7.75 K/uL (1.40-6.50); Neutrophils % (auto) 63.7 %
--- NOTE | 2023-05-24 10:56 | Hospitalist Progress Note ---
Date of Service May 24, 2023 Assessment & Plan (1) Sepsis: (2) DAVID (acute kidney injury): (3) Chronic ulcer of left foot: (4) Recurrent UTI (urinary tract infection): (5) Diabetes mellitus, type 2: (6) Hypothyroidism: (7) Gout: (8) Hypertension: (9) Paroxysmal atrial fibrillation: (10) Toe necrosis: (11) Status post amputation of toe of left foot: Plan Ms. Savage is a 77-year-old female who was admitted to our service for management of sepsis secondary to UTI vs chronic ulcers. Deconditioning/weakness -Physical therapy evaluated patient while admitted and deemed poor candidate for short course of inpatient rehab. -Referral sent for SNF. Pending placement. Staph aureus Bacteremia -Patient with wound cultures positive for Staph aureus and now 1 bottle from blood culture positive for staph species -Improved leukocytosis with WBC of 12.14 -Abx: Cefazolin -Repeat blood cultures negative to date -TTE without valvular vegetations. -ID consult placed: Second left toe pathology showing osteomyelitis with clear margins. Recommending 2 weeks of IV cefazolin with weekly CBC and CMP. Repeat blood cultures 1 week after antibiotic completion. Sepsis // Necrotic 2nd left toe // Chronic ulcer of left foot -Sepsis resolved. -Wound cultures growing MSSA. -Antibiotic coverage with cefazolin. Status post 3 days of meropenem and 2 days of daptomycin. -Podiatry consulted S/p bedside debridement S/p amputation of necrotic second toe of her left foot (05/19/2023). Pathology showing osteomyelitis. Margins were clear. -Wound care consulted. Anemia -Stable with a.m. labs showing hemoglobin of 9.1. Patient asymptomatic. -Monitor with a.m. labs. Abdominal pain // Constipation -Patient having adequate bowel movements. Abdominal pain resolved -Will change MiraLAX order to daily and to as needed. DM-II, uncontrolled with associated peripheral neuropathy -Hemoglobin A1c 8.8% -Hold home medications. -Sliding scale initiated. Pharmacist diabetes management consulted. DAVID -Resolved -Creatinine 1.11 this morning -Monitor with morning lab Recurrent UTI -Patient with known history of recurrent UTIs, as well as some UTIs with ESBL. -No UTI noted on urinalysis and urine cultures. -Patient's sepsis on arrival more likely associated to chronic left toe. Hypothyroidism -Continue home medications. -TSH of 1.047 at time of admission. Gout - Continue home meds HTN -Hold antihypertensives due to current soft BP. A-fib - On Xarelto - Monitor in telemetry Dispo: Anticipate discharge to SNF for physical rehabilitation and IV antibiotics Nutrition: DM 2 and heart healthy Code status: Full code DVT ppx: Continue home Xarelto Admission and Anticipated Discharge Date Admission Date: May 16, 2023 Supervising Physician Co-Signing Physician Notes Attending attestation I personally examined the patient and verified all porter points of history and exam, discussed case, and agree with decision making with Dr Starks No problems. Still awaiting SNF. Vitals noted, in general she is awake and alert pleasant no distress. HEENT normocephalic atraumatic mucous membranes moist. Breathing unlabored no accessory muscle use good effort. Skin shows no rashes no pallor or icterus. Neuro without focal deficits. Diabetic foot infection/osteomyelitis with presumptive bacteremia (only 1 out of 2, but matches what grew in her foot) send sepsis present on admissionimpr oving nicely, continue cefazolin, fortunately with clear margins short duration overall - appreciate ID input h/o ercurrent UTI h/o ESBL - Without urinary symptoms, would not continue to treat currently Anemia, acute on chronic - follow periodic CBC DMII - continue current management, after discharge from rehab, may need escalated med regimen, lifestyle changes. otherwise as above Subjective Patient evaluated at bedside and found to be awake alert and oriented in all spheres, no acute distress. She refers improvement with regards to her generalized weakness. Has been able to eat without feeling any nausea or vomiting. Still having adequate bowel movements and adequate urinary output. Denies having fevers, chills, malaise, nausea, vomiting, diarrhea, chest pain, shortness of breath, palpitations, or any other symptoms. Review of Systems Review of Systems: As per HPI Physical Exam Physical Exam: GENERAL: Awake alert and oriented, calm, in no acute distress HEAD: Atraumatic and normocephalic EYES: EOM intact THROAT: Normal to visual inspection CARDIO: Regular rate and rhythm, no rubs murmurs or gallops appreciated RESPIRATORY: Clear to auscultation bilaterally, no wheezing, normal respiratory effort, no respiratory distress GI: non distended, Nontender, no guarding or rebound tenderness EXTREMITIES: Upper extremities normal bilaterally, waffle boots noted bilaterally, left foot covered with bandages after recent second left toe amputation, bandages with dry blood but no active bleeding or drainage Results & Data Results & Data Vital Signs (Past 12 Hours) Vital Signs Temp Pulse Resp BP Pulse Ox O2 Del Method 05/24/23 07:05 36.5 C 67 16 138/64 94 Room Air
--- NOTE | 2023-05-24 19:30 | Billing Data ---
Date of Service May 24, 2023 Coding Level of Care Code 21098 SUB INP/OBS CARE
--- NOTE | 2023-05-24 21:19 | Orthopedic Progress Note ---
Date of Service May 24, 2023 Assessment & Plan (1) Diabetic ulcer of left foot: Plan: Patient seen and evaluated at bedside in S236-1 with Eriberto present. Patient is status post day #5 left second toe amputation and diabetic foot wound debridement Dressing changed. Order placed for nursing to change dressing daily. Continue in waffle boots. Patient is weight bearing as tolerated. Thank you for allowing me to participate in the care of this Patient. Will continue to follow while Patient remains in house. (2) Cellulitis: (3) Diabetes mellitus, type 2: Admission and Anticipated Discharge Date Admission Date: May 16, 2023 Subjective Patient seen and evaluated at bedside in S236-1. Patient has no complaints. Patient is status post day #5 left second toe amputation and diabetic foot wound debridement. She is resting comfortably with Waffle boots intact. Physical Exam Constitutional: cooperative and comfortable Eyes: normal visual singh by confrontation Neck: normal visual inspection and trachea midline Respiratory: normal respiratory effort Cardiovascular: Vessels: posterior tibial pulses present and dorsalis pedis pulses present Musculoskeletal: Extremities: + amputation noted (Left second toe amputation) and + foot abnormality (Rocker bottom derformity consistent with Charcot Arthropathy) Skin: + lesion (Left Sub-met 1 hyperkeratotic lesion), + ulcer (Right Lateral ankle full thickness, Left submet 1 full thickness ulcer), + wound (Left second DIPJ full thickness ulcer with exposed phalanx) and + erythema (Bilateral feet periwound) Psychiatric: Orientation: oriented to person and cooperative Results & Data Vital Signs (Past 12 Hours) Vital Signs Temp Pulse Resp BP Pulse Ox O2 Del Method 05/24/23 15:33 36.9 C 66 16 127/63 94 Room Air (2) Cellulitis Laterality: left Site of cellulitis: extremity Site of cellulitis of extremity: lower extremity Qualified Code(s): L03.116 - Cellulitis of left lower limb
[2023-05-25 06:32] LABS: Hematocrit (blood only) 31.2 % (37.0-47.0); Hemoglobin 9.9 g/dl (12.0-16.0); Mean Corpuscular Hemoglobin 31.4 pg (25.0-34.0); Mean Corpuscular Hgb Conc 31.7 g/dL (32.0-36.0); Mean Platelet Volume 10.5 fL (9.4-12.4); Platelet Count 436 K/uL (130-400); RDW Coefficient of Variation 14.8 % (11.5-14.5); RDW Standard Deviation 53.2 fL (36.4-46.3); Red Blood Count 3.15 M/uL (4.20-5.40); White Blood Count 12.11 K/ul (4.8-10.8)
[2023-05-25 06:50] LABS: Basophils % (auto) 0.8 %; Eosinophils # (auto) 0.24 K/uL (0.00-0.50); Immature Granulocytes # (auto) 0.76 K/uL (0.01-0.20); Immature Granulocytes % (auto) 6.3 %; Lymphocytes # (auto) 2.35 K/uL (1.20-3.40); Lymphocytes % (auto) 19.4 %; Monocytes % (auto) 9.1 %; Neutrophils # (auto) 7.56 K/uL (1.40-6.50); Neutrophils % (auto) 62.4 %; Polychromasia 1+
[2023-05-25 06:55] LABS: Anisocytosis Present; Polychromasia 1+
[2023-05-25 07:48] LABS: BUN Creatinine Ratio 20.2 (10-20); Calcium 9.2 mg/dl (8.6-10.3); Creatinine Clr Calc Pharmacy 41.3 ml/min; Est GFR (African American) 50.6 ml/min; Est GFR (Non-African American) 43.7 ml/min; Potassium 4.2 mmol/L (3.5-5.1)
--- NOTE | 2023-05-25 09:52 | Hospitalist Progress Note ---
Date of Service May 25, 2023 Assessment & Plan (1) Sepsis: (2) DAVID (acute kidney injury): (3) Chronic ulcer of left foot: (4) Recurrent UTI (urinary tract infection): (5) Diabetes mellitus, type 2: (6) Hypothyroidism: (7) Gout: (8) Hypertension: (9) Paroxysmal atrial fibrillation: (10) Toe necrosis: (11) Status post amputation of toe of left foot: Plan Ms. Savage is a 77-year-old female who was admitted to our service for management of sepsis secondary to UTI vs chronic ulcers. Deconditioning/weakness -Physical therapy evaluated patient while admitted and deemed poor candidate for short course of inpatient rehab. -Referral sent for SNF. Pending placement. Staph aureus Bacteremia -Patient with wound cultures positive for Staph aureus and now 1 bottle from blood culture positive for staph species -Improved leukocytosis with WBC of 12.11 -Abx: Cefazolin -Repeat blood cultures negative. -TTE without valvular vegetations. -ID consult placed: Second left toe pathology showing osteomyelitis with clear margins. Recommending 2 weeks of IV cefazolin with weekly CBC and CMP. Repeat blood cultures 1 week after antibiotic completion. Sepsis // Necrotic 2nd left toe // Chronic ulcer of left foot -Sepsis resolved. -Wound cultures growing MSSA. -Antibiotic coverage with cefazolin. Status post 3 days of meropenem and 2 days of daptomycin. -Podiatry consulted S/p bedside debridement S/p amputation of necrotic second toe of her left foot (05/19/2023). Pathology showing osteomyelitis. Margins were clear. -Wound care consulted. Anemia -Stable with a.m. labs showing hemoglobin of 9.9. Patient asymptomatic. -Monitor with a.m. labs. Abdominal pain // Constipation -Patient having adequate bowel movements. Abdominal pain resolved -Will change MiraLAX order to daily and to as needed. DM-II, uncontrolled with associated peripheral neuropathy -Hemoglobin A1c 8.8% -Hold home medications. -Sliding scale initiated. Pharmacist diabetes management consulted. DAVID -Resolved -Creatinine 1.19 this morning -Monitor with morning lab Recurrent UTI -Patient with known history of recurrent UTIs, as well as some UTIs with ESBL. -No UTI noted on urinalysis and urine cultures. -Patient's sepsis on arrival more likely associated to chronic left toe. Hypothyroidism -Continue home medications. -TSH of 1.047 at time of admission. Gout - Continue home meds HTN -Hold antihypertensives due to current soft BP. A-fib - On Xarelto - Monitor in telemetry Dispo: Anticipate discharge to SNF for physical rehabilitation and IV antibiotics Nutrition: DM 2 and heart healthy Code status: Full code DVT ppx: Continue home Xarelto Admission and Anticipated Discharge Date Admission Date: May 16, 2023 Supervising Physician Co-Signing Physician Notes Attending attestation I personally examined the patient and verified all porter points of history and exam, discussed case, and agree with decision making with Dr Starks No new problems. Still awaiting SNF. Vitals noted, in general she is awake and alert pleasant no distress. HEENT normocephalic atraumatic mucous membranes moist. Breathing unlabored no accessory muscle use good effort. Skin shows no rashes no pallor or icterus. Neuro without focal deficits. Diabetic foot infection/osteomyelitis with presumptive bacteremia (only 1 out of 2, but matches what grew in her foot) send sepsis present on admissionimproving nicely, continue cefazolin, fortunately with clear margins she will only need a short duration overall - appreciate ID input h/o ercurrent UTI h/o ESBL - Without urinary symptoms, would not continue to treat currently Anemia, acute on chronic - follow periodic CBC DMII - continue current management, after discharge from SNF/rehab emphasis, may need escalated med regimen, lifestyle changes. otherwise as above Subjective Patient was evaluated bedside and found to be alone, awake alert and oriented in all spheres, and in no acute distress. She refers residual weakness but is significantly improved compared to the time of admission. Has been able to tolerate her meals without any difficulty. Voiding and having bowel movements without difficulty. Denies chest pain, shortness of breath, fevers, chills, nausea, vomiting or any other systemic symptoms. Review of Systems Review of Systems: As per HPI Physical Exam Physical Exam: GENERAL: Awake alert and oriented, calm, in no acute distress HEAD: Atraumatic and normocephalic EYES: EOM intact THROAT: Normal to visual inspection CARDIO: Regular rate and rhythm, no rubs murmurs or gallops appreciated RESPIRATORY: Clear to auscultation bilaterally, no wheezing, normal respiratory effort, no respiratory distress GI: non distended, Nontender, no guarding or rebound tenderness Results & Data Results & Data Vital Signs (Past 12 Hours) Vital Signs Temp Pulse Resp BP Pulse Ox Pulse Ox O2 Del Method 05/25/23 07:51 36.4 C L 68 16 147/71 H 96 Room Air 05/24/23 22:03 94 O2 Del Method 05/25/23 07:51 05/24/23 22:03 Room Air
--- NOTE | 2023-05-25 12:11 | Pharmacy Report ---
Pharmacy Glycemic Short Note 2 - Date of Service May 25, 2023 - Glycemic Short BSG Results (Last 24 hours): 05/24/23 05/24/23 05/25/23 16:46 20:25 05:47 Glucose 106 H POC Glucose 143 H 165 H 05/25/23 05/25/23 07:29 11:29 Glucose POC Glucose 119 H 155 H OUTPATIENT ANTIDIABETIC REGIMEN: * Metformin 500mg QPM (cannot tolerate higher doses d/t diarrhea) * Lantus 13 units SQ QAM * Trulicity 4.5mg/0.5mL SQ weekly (has not been able to get due to supply chain issues) * HbA1c 8.8% 05/17/23 ASSESSMENT: 05/24 * Ms Andrews continues to require ~90-100 units of insulin per day. * BSGs have been stable. * No changes required at this time. 05/23 * BSGs well-controlled yesterday, ranging 114-165 mg/dL * Received 88 units of insulin (40 units of basal and 44 units of prandial/correctional bolus) * Fasting BSG of 127 mg/dL this morning * Continues on IV Ancef and 5 mg PO prednisone daily 05/21 * Patient received total of 79 units of insulin yesterday, of which 40 units were basal insulin * Fasting BSG 111 mg/dL - will continue same basal, however have lower parameters in case BSGs trend downward. Insulin needs decreasing over past couple of days * No change to CF/CR 05/18 * Nadia received 114 units of insulin yesterday (41 basal, 12 units IV regular insulin boluses (5+7), 73 bolus) * Fasting BSG improved this AM, but still elevated, will aim to give same basal dose as yesterday (approximately a weight based stress of 3) allowing up to a 20% increase * Novolog parameters tightened significantly, BSGs much improved * She continues on her home prednisone as well as meropenem and IV fluids. DAVID improving 05/17 * Nadia is a 77 YOF admitted with general malaise and increased BSGs. She has a history of type 2 diabetes. Pharmacy has been consulted to assist with glycemic management while inpatient. * BSG elevated on admission, home dose of Lantus given last night, BSG elevations persisted into this AM (carbs not covered yesterday evening). Basal insulin at a weight based stress of 2 given early this morning, and then continuing BID. Will change scheduled regimen to allow for a smaller dose in the evening based on BSG to prevent hypoglycemia. * BSGs still elevated at lunchtime, 5 units of IV regular insulin given in addition to Novolog to help bring down BSG values * She is currently on meropenem and daptomycin, her home prednisone 5mg was continued, and she has NS @ 75mL/hr running. * Novolog initated at a weight based stress of 2.5, will tighten this evening if BSGs remain elevated. PLAN FOR INPATIENT GLYCEMIC CONTROL: * Hold outpatient diabetes medications * Basal insulin * Lantus 25 units SQ qAM * Lantus 15-20 units SQ qPM * Bolus insulin * NovoLog per scale ACHS or Q6hrs while NPO * Goal Range: Low 110 mg/dL - High 140 mg/dL * Correction Factor: 12 mg/dL/unit * Nutritional / Prandial insulin per carb ratio of 1 unit per 4 grams CHO consumed
--- NOTE | 2023-05-25 18:04 | Billing Data ---
Date of Service May 25, 2023 Coding Level of Care Code 58680 SUB INP/OBS CARE
--- NOTE | 2023-05-26 07:20 | Hospitalist Progress Note ---
Date of Service May 26, 2023 Assessment & Plan (1) Sepsis: (2) DAVID (acute kidney injury): (3) Chronic ulcer of left foot: (4) Recurrent UTI (urinary tract infection): (5) Diabetes mellitus, type 2: (6) Hypothyroidism: (7) Gout: (8) Hypertension: (9) Paroxysmal atrial fibrillation: (10) Toe necrosis: (11) Status post amputation of toe of left foot: (12) Constipation: Plan Ms. Savage is a 77-year-old female who was admitted to our service for management of sepsis secondary to UTI vs chronic ulcers. Deconditioning/weakness -Physical therapy evaluated patient while admitted and deemed poor candidate for short course of inpatient rehab. -Referral sent for SNF. Pending placement for [facility] Staph aureus Bacteremia -Patient with wound cultures positive for Staph aureus and now 1 bottle from blood culture positive for staph species -Improved leukocytosis with WBC of 10.93. Decreaing trend -Abx: Cefazolin IV 2 g -Repeat blood cultures negative. -TTE without valvular vegetations. -ID consult placed: Second left toe pathology showing osteomyelitis with clear margins. Recommending 2 weeks of IV cefazolin with weekly CBC and CMP. Repeat blood cultures 1 week after antibiotic completion. Sepsis // Necrotic 2nd left toe // Chronic ulcer of left foot -Sepsis resolved. -Wound cultures growing MSSA. -Antibiotic coverage with cefazolin. Status post 3 days of meropenem and 2 days of daptomycin. -Podiatry consulted S/p bedside debridement S/p amputation of necrotic second toe of her left foot (05/19/2023). Pathology showing osteomyelitis. Margins were clear. -Wound care consulted. Anemia -Stable with a.m. labs showing hemoglobin of 9.8. Patient asymptomatic. -Monitor with a.m. labs. Abdominal pain // Constipation -Patient having adequate bowel movements. Abdominal pain resolved -Will change MiraLAX order to daily and to as needed. DM-II, uncontrolled with associated peripheral neuropathy -Hemoglobin A1c 8.8% -Hold home medications. -Sliding scale initiated. Pharmacist diabetes management consulted. DAVID -Resolved -Creatinine 1.10 this morning -Monitor with morning lab Recurrent UTI -Patient with known history of recurrent UTIs, as well as some UTIs with ESBL. -No UTI noted on urinalysis and urine cultures. -Patient's sepsis on arrival more likely associated to chronic left toe. Hypothyroidism -Continue home medications. -TSH of 1.047 at time of admission. Gout - Continue home meds HTN -Hold antihypertensives due to current soft BP. A-fib - On Xarelto - Monitor in telemetry Dispo: Anticipate discharge to SNF for physical rehabilitation and IV antibiotics. Pending placement Nutrition: DM 2 and heart healthy Code status: Full code DVT ppx: Continue home Xarelto Admission and Anticipated Discharge Date Admission Date: May 16, 2023 Supervising Physician Co-Signing Physician Notes I personally examined the patient and verified all porter points of history and exam, discussed case, and agree with decision making with Dr. Feroz Barrett. Endorsing some constipation today but otherwise no acute concerns. Plans to do some walking with the walker today. Vitals reviewed and stable. Generally, pleasant and in no acute distress. Breathing comfortably on room air with clear to auscultation anteriorly. Heart with regular rate. Abdomen soft and nontender. No purulent drainage or erythema surrounding site of left 2nd toe amputation. Waffle boots in place. Labs today reviewed with downtrending leukocytosis, stable hemoglobin at 9.8 Diabetic foot infection/osteomyelitis with presumptive bacteremia (only 1 out of 2, but matches what grew in her foot), sepsis present on admissionimproving, continue cefazolin for 2 weeks per ID input Constipationcontinue bowel regimen H/o recurrent UTI h/o ESBL - Without urinary symptoms, would not continue to treat currently Anemia, acute on chronic - follow periodic CBC DMII - continue current management, after discharge from SNF, may need escalated med regimen, lifestyle changes. Otherwise as above Discharge to SNF when bed available Subjective Patient was evaluated this morning at bedside and found in NAD, oriented x 3. No complains today. She is ambulating with help. Having BMs daily. Denies chest pain, shortness of breath, fevers, chills, nausea, vomiting or any other systemic symptoms. Pending placement. Review of Systems Review of Systems: as per hpi Physical Exam Physical Exam: GENERAL: Awake alert and oriented, calm, in no acute distress HEAD: Atraumatic and normocephalic CARDIO: Regular rate and rhythm, no rubs murmurs or gallops appreciated RESPIRATORY: Clear to auscultation bilaterally, no wheezing, normal respiratory effort, no respiratory distress GI: non distended, Nontender, no guarding or rebound tenderness No edema Results & Data Results & Data Vital Signs (Past 12 Hours) Vital Signs Temp Pulse Resp BP Pulse Ox Pulse Ox O2 Del Method 05/25/23 23:00 95 05/25/23 20:18 36.5 C 68 14 115/62 95 Room Air O2 Del Method 05/25/23 23:00 Room Air 05/25/23 20:18 Resident Activity Tracking Resident Involvement: Resident Care Provided Care Provided: Adult Hospital Medicine
[2023-05-26 07:56] LABS: Hematocrit (blood only) 30.3 % (37.0-47.0); Hemoglobin 9.8 g/dl (12.0-16.0); Mean Corpuscular Hemoglobin 31.3 pg (25.0-34.0); Mean Corpuscular Hgb Conc 32.3 g/dL (32.0-36.0); Mean Corpuscular Volume 96.8 fL (80.0-100.0); Mean Platelet Volume 10.2 fL (9.4-12.4); Platelet Count 416 K/uL (130-400); RDW Coefficient of Variation 14.7 % (11.5-14.5); RDW Standard Deviation 52.1 fL (36.4-46.3); Red Blood Count 3.13 M/uL (4.20-5.40); White Blood Count 10.93 K/ul (4.8-10.8)
[2023-05-26 08:19] LABS: BUN Creatinine Ratio 25.5 (10-20); Calcium 8.8 mg/dl (8.6-10.3); Creatinine Clr Calc Pharmacy 44.8 ml/min; Est GFR (African American) 55.7 ml/min; Est GFR (Non-African American) 48.1 ml/min
[2023-05-26 08:31] LABS: Basophils # (auto) 0.06 K/uL (0.00-0.20); Basophils % (auto) 0.5 %; Eosinophils # (auto) 0.23 K/uL (0.00-0.50); Eosinophils % (auto) 2.1 %; Immature Granulocytes # (auto) 0.59 K/uL (0.01-0.20); Immature Granulocytes % (auto) 5.4 %; Lymphocytes # (auto) 2.37 K/uL (1.20-3.40); Lymphocytes % (auto) 21.7 %; Monocytes # (auto) 1.07 K/uL (0.11-0.59); Monocytes % (auto) 9.8 %; Neutrophils # (auto) 6.61 K/uL (1.40-6.50); Neutrophils % (auto) 60.5 %; Polychromasia 1+
--- NOTE | 2023-05-26 14:25 | Billing Data ---
Date of Service May 26, 2023 Coding Level of Care Code 51597 SUB INP/OBS CARE
[2023-05-27 06:15] LABS: Basophils # (auto) 0.06 K/uL (0.00-0.20); Basophils % (auto) 0.5 %; Eosinophils # (auto) 0.23 K/uL (0.00-0.50); Eosinophils % (auto) 2.1 %; Hematocrit (blood only) 30.9 % (37.0-47.0); Hemoglobin 9.7 g/dl (12.0-16.0); Immature Granulocytes # (auto) 0.48 K/uL (0.01-0.20); Immature Granulocytes % (auto) 4.4 %; Lymphocytes % (auto) 22.7 %; Mean Corpuscular Hemoglobin 31.1 pg (25.0-34.0); Mean Corpuscular Hgb Conc 31.4 g/dL (32.0-36.0); Mean Platelet Volume 10.2 fL (9.4-12.4); Monocytes # (auto) 0.96 K/uL (0.11-0.59); Monocytes % (auto) 8.7 %; Neutrophils # (auto) 6.76 K/uL (1.40-6.50); Neutrophils % (auto) 61.6 %; Platelet Count 373 K/uL (130-400); RDW Coefficient of Variation 14.6 % (11.5-14.5); Red Blood Count 3.12 M/uL (4.20-5.40); White Blood Count 10.99 K/ul (4.8-10.8)
[2023-05-27 06:32] LABS: BUN Creatinine Ratio 28.9 (10-20); Calcium 8.8 mg/dl (8.6-10.3); Creatinine Clr Calc Pharmacy 42.9 ml/min; Est GFR (African American) 53.3 ml/min; Potassium 3.9 mmol/L (3.5-5.1)
--- NOTE | 2023-05-27 07:55 | Hospitalist Progress Note ---
Date of Service May 27, 2023 Assessment & Plan (1) Sepsis: (2) DAVID (acute kidney injury): (3) Chronic ulcer of left foot: (4) Recurrent UTI (urinary tract infection): (5) Diabetes mellitus, type 2: (6) Hypothyroidism: (7) Gout: (8) Hypertension: (9) Paroxysmal atrial fibrillation: (10) Toe necrosis: (11) Status post amputation of toe of left foot: Plan Ms. Savage is a 77-year-old female who was admitted to our service for management of sepsis secondary to UTI vs chronic ulcers. Deconditioning/weakness -Physical therapy evaluated patient while admitted and deemed poor candidate for short course of inpatient rehab. -Referral sent for SNF. Pending placement for [facility] Staph aureus Bacteremia -Patient with wound cultures positive for Staph aureus and now 1 bottle from blood culture positive for staph species -Improved leukocytosis with WBC of 10.93. Decreaing trend -Abx: Cefazolin IV 2 g -Repeat blood cultures negative. -TTE without valvular vegetations. -ID consult placed: Second left toe pathology showing osteomyelitis with clear margins. Recommending 2 weeks of IV cefazolin with weekly CBC and CMP. Repeat blood cultures 1 week after antibiotic completion. Sepsis // Necrotic 2nd left toe // Chronic ulcer of left foot -Sepsis resolved. -Wound cultures growing MSSA. -Antibiotic coverage with cefazolin. Status post 3 days of meropenem and 2 days of daptomycin. -Podiatry consulted S/p bedside debridement S/p amputation of necrotic second toe of her left foot (05/19/2023). Pathology showing osteomyelitis. Margins were clear. -Wound care consulted. Anemia -Stable with a.m. labs showing hemoglobin of 9.8. Patient asymptomatic. -Monitor with a.m. labs. Abdominal pain // Constipation -Patient having adequate bowel movements. Abdominal pain resolved -Will change MiraLAX order to daily and to as needed. DM-II, uncontrolled with associated peripheral neuropathy -Hemoglobin A1c 8.8% -Hold home medications. -Sliding scale initiated. Pharmacist diabetes management consulted. DAVID -Resolved -Creatinine 1.14 this morning -Monitor with morning lab Recurrent UTI- ESBL -Patient with known history of recurrent UTIs, as well as some UTIs with ESBL. -No UTI noted on urinalysis and urine cultures. Hypothyroidism -Continue home medications. -TSH of 1.047 Gout - Continue home meds HTN -Continue home medication A-fib - On Xarelto - Monitor in telemetry Dispo: Anticipate discharge to SNF for physical rehabilitation and IV antibiotics. Pending placement Nutrition: DM 2 and heart healthy Code status: Full code DVT ppx: Continue home Xarelto Admission and Anticipated Discharge Date Admission Date: May 16, 2023 Supervising Physician Co-Signing Physician Notes I personally examined the patient and verified all porter points of history and exam, discussed case, and agree with decision making with Dr. Feroz Barrett. Still having some difficulties from a constipation standpoint but otherwise no acute concerns. Had some mild bleeding from her foot today. Vitals reviewed and stable. Generally, pleasant and in no acute distress. Breathing comfortably on room air with clear to auscultation anteriorly. Heart with regular rate. Abdomen soft and nontender. No purulent drainage or erythema surrounding site of left 2nd toe amputation with sutures in place. Waffle boots in place. Labs today reviewed with stable anemia and otherwise unremarkable Diabetic foot infection/osteomyelitis with presumptive bacteremia (only 1 out of 2, but matches what grew in her foot), sepsis present on admission. S/p left 2nd toe amputation 05/19. Improving, continue cefazolin for 2 weeks per ID input. Will touch base with podiatry regarding suture removal. Constipationcontinue bowel regimen H/o recurrent UTI h/o ESBL - Without urinary symptoms, would not continue to treat currently Anemia, acute on chronic - follow periodic CBC DMII - continue current management, after discharge from SNF, may need escalated med regimen, lifestyle changes. Otherwise as above Discharge to SNF when bed available Subjective Patient was evaluated this morning at bedside and found in NAD, oriented x 3. No complains today. She is ambulating with help. Last BM 2 days ago. Denies chest pain, shortness of breath, fevers, chills, nausea, vomiting or any other systemic symptoms. Pending placement. Review of Systems Review of Systems: as per hpi Physical Exam Physical Exam: GENERAL: Awake alert and oriented, calm, in no acute distress HEAD: Atraumatic and normocephalic CARDIO: Regular rate and rhythm, no rubs murmurs or gallops appreciated RESPIRATORY: Clear to auscultation bilaterally, no wheezing, normal respiratory effort, no respiratory distress GI: non distended, Nontender, no guarding or rebound tenderness No edema Results & Data Results & Data Vital Signs (Past 12 Hours) Vital Signs Pulse Ox O2 Del Method 05/27/23 00:17 94 Room Air Resident Activity Tracking Resident Involvement: Resident Care Provided Care Provided: Adult Hospital Medicine
--- NOTE | 2023-05-27 14:05 | Billing Data ---
Date of Service May 27, 2023 Coding Level of Care Code 15544 SUB INP/OBS CARE
--- NOTE | 2023-05-28 07:45 | Hospitalist Progress Note ---
Date of Service May 28, 2023 Assessment & Plan (1) Sepsis: (2) DAVID (acute kidney injury): (3) Chronic ulcer of left foot: (4) Recurrent UTI (urinary tract infection): (5) Diabetes mellitus, type 2: (6) Hypothyroidism: (7) Gout: (8) Hypertension: (9) Paroxysmal atrial fibrillation: (10) Toe necrosis: (11) Status post amputation of toe of left foot: Plan Ms. Andrews is a 77-year-old female who was admitted to our service for management of sepsis secondary to UTI vs chronic ulcers. Deconditioning/weakness -Physical therapy evaluated patient while admitted and deemed poor candidate for short course of inpatient rehab. -Referral sent for SNF. Pending placement for [place] Staph aureus Bacteremia -Patient with wound cultures positive for Staph aureus and one sample from initial blood culture positive for staph species -Improved leukocytosis, AM WBC 10.7 -Abx: Cefazolin IV 2 g -Repeat blood cultures negative. -TTE without valvular vegetations. -ID consult placed: Second left toe pathology significant for osteomyelitis with clear margins. Recommending 2 weeks of IV cefazolin with weekly CBC and CMP. Repeat blood cultures 1 week after antibiotic completion. Sepsis // Necrotic 2nd left toe // Chronic ulcer of left foot -Sepsis resolved. -Wound cultures + MSSA. -Antibiotic coverage with cefazolin. Status post 3 days of meropenem and 2 days of daptomycin. -Podiatry consulted S/p bedside debridement S/p amputation of necrotic second toe of her left foot (05/19/2023). Pathology showing osteomyelitis. Margins were clear. -Wound care consulted. Anemia -Stable AM hemoglobin of 9.7. Patient asymptomatic, continue to monitor Abdominal pain // Constipation -Patient having adequate bowel movements. Abdominal pain resolved -Continue daily MiraLAX DM-II, uncontrolled with associated peripheral neuropathy -Hemoglobin A1c 8.8% -Hold home medications. -Sliding scale initiated. Pharmacist diabetes management consulted. DAVID -Resolved -Creatinine 1.19 this morning Recurrent UTI- ESBL -Patient with known history of recurrent UTIs, as well as some UTIs with ESBL. -No UTI noted on urinalysis and urine cultures. Hypothyroidism -Continue home medications. -TSH of 1.047 Gout - Continue home meds HTN -Continue home medication A-fib - On Xarelto - On telemetry Dispo: Anticipate discharge to SNF for physical rehabilitation and IV a ntibiotics. Pending placement Nutrition: DM 2 and heart healthy Code status: Full code DVT ppx: Continue home Xarelto Admission and Anticipated Discharge Date Admission Date: May 16, 2023 Supervising Physician Co-Signing Physician Notes Attending Physician Supervision Note: I independently interviewed and examined the patient and verified the porter history and physical, reviewed labs and image studies and agree with findings and care plan noted above. No concerns this am. Vitals reviewed and stable. Generally, pleasant and in no acute distress. Breathing comfortably on room air. Diabetic foot infection/osteomyelitis with presumptive bacteremia (only 1 out of 2, but matches what grew in her foot), sepsis present on admission. S/p left 2nd toe amputation 05/19. Improving, continue cefazolin for 2 weeks per ID input. To f/u with podiatry regarding suture removal. Constipationcontinue bowel regimen H/o recurrent UTI h/o ESBL - Without urinary symptoms, would not continue to treat currently Anemia, acute on chronic - follow periodic CBC DMII - continue current management, after discharge from SNF, may need escalated med regimen, lifestyle changes. Otherwise as above Discharge to SNF when bed available Subjective Patient was evaluated this morning at bedside and found in NAD, alert and oriented. No complains today, denies LE pain. Denies chest pain, shortness of b reath, fevers, chills, nausea, vomiting. Pending placement. Review of Systems Review of Systems: as per hpi Physical Exam Physical Exam: General: Alert and oriented. No acute distress Cardiac: Regular rate and rhythm, no murmurs appreciated Respiratory: Lungs clear to auscultation bilaterally, No increased work of breathing Abdominal: non-tender, non-distended. Extremities: warm, well perfused Results & Data Results & Data Vital Signs (Past 12 Hours) Vital Signs Temp Pulse Resp BP Pulse Ox O2 Del Method 05/27/23 20:00 Room Air 05/27/23 19:59 36.9 C 64 14 122/67 94 Room Air Resident Activity Tracking Resident Involvement: Resident Care Provided Care Provided: Adult Hospital Medicine
[2023-05-28 08:18] LABS: Basophils # (auto) 0.07 K/uL (0.00-0.20); Basophils % (auto) 0.7 %; Eosinophils # (auto) 0.22 K/uL (0.00-0.50); Eosinophils % (auto) 2.1 %; Hematocrit (blood only) 31.2 % (37.0-47.0); Hemoglobin 9.7 g/dl (12.0-16.0); Immature Granulocytes # (auto) 0.31 K/uL (0.01-0.20); Immature Granulocytes % (auto) 2.9 %; Lymphocytes # (auto) 2.29 K/uL (1.20-3.40); Lymphocytes % (auto) 21.4 %; Mean Corpuscular Hemoglobin 30.8 pg (25.0-34.0); Mean Corpuscular Hgb Conc 31.1 g/dL (32.0-36.0); Mean Platelet Volume 10.7 fL (9.4-12.4); Monocytes # (auto) 1.01 K/uL (0.11-0.59); Monocytes % (auto) 9.4 %; Neutrophils # (auto) 6.82 K/uL (1.40-6.50); Neutrophils % (auto) 63.5 %; Platelet Count 369 K/uL (130-400); RDW Coefficient of Variation 14.7 % (11.5-14.5); RDW Standard Deviation 52.9 fL (36.4-46.3); Red Blood Count 3.15 M/uL (4.20-5.40); White Blood Count 10.72 K/ul (4.8-10.8)
[2023-05-28 08:35] LABS: BUN Creatinine Ratio 27.7 (10-20); Creatinine Clr Calc Pharmacy 41.1 ml/min; Est GFR (African American) 50.6 ml/min; Est GFR (Non-African American) 43.7 ml/min; Potassium 3.7 mmol/L (3.5-5.1)
--- NOTE | 2023-05-28 08:37 | Pharmacy Report ---
Pharmacy Glycemic Sign Off Nt - Date of Service May 28, 2023 - Assessment & Plan ASSESSMENT: * Pharmacy was consulted by Dr Burrows on 05/16/23 for glycemic control and to write orders per [facility] inpatient glycemic control protocol. * Major changes made by pharmacy to antidiabetic regimen include: * titration of SC basal/bolus regimen * Patient has been receiving/requiring ~80-100 units of insulin per day for adequate glycemic control * BSGs ranging 111-165 mg/dl * No changes to glycemic regimen in past several days * Do not anticipate further changes in patient status that would quickly deteriorate glycemic control (i.e. patient to be NPO for upcoming procedure, steroids tapering, starting tube feedings, etc). PLAN FOR INPATIENT GLYCEMIC CONTROL: No changes needed to current regimen. * Continue basal insulin with Lantus 25 units SQ qAM, Lantus 20 units SC qPM * Continue NovoLog per scale ACHS/Q6hrs while NPO * Goal range = 110-140 mg/dl * CF = 12 mg/dl/unit * CR = 1 unit for ever 4 g CHO consumed * Pharmacy is signing off of glycemic consult and will no longer be making adjustments to inpatient regimen. Please feel free to re-consult if needed. Thank you.
[2023-05-28] MEDS: LANTUS PER UNIT CHARGE SQ SCH (20:49)
--- NOTE | 2023-05-29 11:43 | Hospitalist Progress Note ---
Date of Service May 29, 2023 Assessment & Plan (1) Sepsis: (2) DAVID (acute kidney injury): (3) Chronic ulcer of left foot: (4) Recurrent UTI (urinary tract infection): (5) Diabetes mellitus, type 2: (6) Hypothyroidism: (7) Gout: (8) Hypertension: (9) Paroxysmal atrial fibrillation: (10) Toe necrosis: (11) Status post amputation of toe of left foot: Plan Ms. Andrews is a 77-year-old female who was admitted to our service for management of sepsis secondary to UTI vs chronic ulcers. Deconditioning/weakness -Physical therapy evaluated patient while admitted and deemed poor candidate for short course of inpatient rehab. -Referral sent for SNF. Pending placement for [place] Staph aureus Bacteremia -Patient with wound cultures positive for Staph aureus and one sample from initial blood culture positive for staph species -Abx: Cefazolin IV 2 g daily -Repeat blood cultures negative. -TTE without valvular vegetations. -ID consult placed: Second left toe pathology significant for osteomyelitis with clear margins. Recommending 2 weeks of IV cefazolin with weekly CBC and CMP, last day of abx 06/02/2023. Repeat blood cultures 1 week after antibiotic completion. ?need for PICC placement prior to discharge vs peripheral IV given short remaining duration of IV abx. Sepsis // Necrotic 2nd left toe // Chronic ulcer of left foot -Sepsis resolved. -Wound cultures + MSSA. -Antibiotic coverage with cefazolin. Status post 3 days of meropenem and 2 days of daptomycin. -Podiatry consulted S/p bedside debridement S/p amputation of necrotic second toe of her left foot (05/19/2023). Pathology showing osteomyelitis. Margins were clear - Dr. Cervantes's office will schedule patient for outpatient follow up the week of 06/11/23 for removal of stitches. -Wound care consulted. Anemia -Stable hemoglobin. Patient asymptomatic, continue to monitor Abdominal pain // Constipation -Patient having adequate bowel movements. Abdominal pain resolved -Continue daily MiraLAX DM-II, uncontrolled with associated peripheral neuropathy -Hemoglobin A1c 8.8% -Hold home medications. -Sliding scale initiated. Pharmacist diabetes management consulted. DAVID -Resolved -Creatinine normalized. Recurrent UTI- ESBL -Patient with known history of recurrent UTIs, as well as some UTIs with ESBL. -No UTI noted on urinalysis and urine cultures. Hypothyroidism -Continue home medications. -TSH of 1.047 Gout - Continue home meds HTN -Continue home medication A-fib - On Xarelto - On telemetry Dispo: Anticipate discharge to SNF for physical rehabilitation and IV an tibiotics. Pending placement Nutrition: DM 2 and heart healthy Code status: Full code DVT ppx: Continue home Xarelto Admission and Anticipated Discharge Date Admission Date: May 16, 2023 Supervising Physician Co-Signing Physician Notes Attending Physician Supervision Note: I independently interviewed and examined the patient and verified the porter history and physical, reviewed labs and image studies and agree with findings and care plan noted above. again no concerns this am. Vitals reviewed and stable. Generally, pleasant and in no acute distress. Breathing comfortably on room air. Diabetic foot infection/osteomyelitis with presumptive bacteremia (only 1 out of 2, but matches what grew in her foot), sepsis present on admission. S/p left 2nd toe amputation 05/19. Improving, continue cefazolin for 2 weeks per ID input. needs suture removal during wk of 06/10 - per podiatry. Constipationcontinue bowel regimen H/o recurrent UTI h/o ESBL - Without urinary symptoms, would not continue to treat currently Anemia, acute on chronic - follow periodic CBC DMII - continue current management, after discharge from SNF, may need escalated med regimen, lifestyle changes. Otherwise as above Discharge to SNF when bed available Subjective Patient was evaluated this morning at bedside and found in NAD, alert and oriented. No complains today, denies LE pain. Denies chest pain, shortness of breath, fevers, chills, nausea, vomiting. No major changes. Pending placement. Review of Systems Review of Systems: as per hpi Physical Exam Physical Exam: General: Alert and oriented. No acute distress Cardiac: Regular rate and rhythm, no murmurs appreciated Respiratory: Lungs clear to auscultation bilaterally, No increased work of breathing Abdominal: non-tender, non-distended. Extremities: warm, well perfused Results & Data Results & Data Vital Signs (Past 12 Hours) Vital Signs Temp Pulse Resp BP Pulse Ox O2 Del Method 05/29/23 07:38 36.6 C 60 18 126/67 96 Room Air Resident Activity Tracking Resident Involvement: Resident Care Provided Care Provided: Adult Hospital Medicine
--- NOTE | 2023-05-30 07:38 | Hospitalist Progress Note ---
Date of Service May 30, 2023 Assessment & Plan (1) Sepsis: (2) DAVID (acute kidney injury): (3) Chronic ulcer of left foot: (4) Recurrent UTI (urinary tract infection): (5) Diabetes mellitus, type 2: (6) Hypothyroidism: (7) Gout: (8) Hypertension: (9) Paroxysmal atrial fibrillation: (10) Toe necrosis: (11) Status post amputation of toe of left foot: Plan Ms. Andrews is a 77-year-old female who was admitted to our service for management of sepsis secondary to UTI vs chronic ulcers. Deconditioning/weakness -PT/OT evaluated patient, recommending rehab placement -CM following, placement pending. Staph aureus Bacteremia -Patient with wound cultures positive for Staph aureus and one sample from initial blood culture positive for staph species -Abx: Cefazolin IV 2 g daily -Repeat blood cultures negative. -TTE without valvular vegetations. -ID consult placed: Second left toe pathology significant for osteomyelitis with clear margins. Recommending 2 weeks of IV cefazolin with weekly CBC and CMP, last day of abx 06/02/2023. Repeat blood cultures 1 week after antibiotic completion. ?need for PICC placement prior to discharge vs peripheral IV given short remaining duration of IV abx. Sepsis // Necrotic 2nd left toe // Chronic ulcer of left foot -Sepsis resolved. -Wound cultures + MSSA. -Antibiotic coverage with cefazolin. Status post 3 days of meropenem and 2 days of daptomycin. -Podiatry consulted S/p bedside debridement S/p amputation of necrotic second toe of her left foot (05/19/2023). Pathology showing osteomyelitis. Margins were clear - Dr. Cervantes's office will schedule patient for outpatient follow up the week of 06/11/23 for removal of stitches. -Wound care consulted. Anemia -Stable hemoglobin. Patient asymptomatic, continue to monitor Abdominal pain // Constipation -Patient having adequate bowel movements. Abdominal pain resolved -Continue daily MiraLAX DM-II, uncontrolled with associated peripheral neuropathy -Hemoglobin A1c 8.8% -Hold home medications. -Sliding scale initiated. Pharmacist diabetes management consulted. DAVID -Resolved -Creatinine back to baseline. Recurrent UTI- ESBL -Patient with known history of recurrent UTIs, as well as some UTIs with ESBL. -No UTI noted on urinalysis and urine cultures. Hypothyroidism -Continue home medications. -TSH of 1.047 Gout - Continue home meds HTN -Continue home medication A-fib - On Xarelto - On telemetry Dispo: Anticipate discharge to SNF for physical rehabilitation and IV antibiotics. Pending placement Nutrition: DM 2 and heart healthy Code status: Full code DVT ppx: Continue home Xarelto Admission and Anticipated Discharge Date Admission Date: May 16, 2023 Supervising Physician Co-Signing Physician Notes Attending Physician Supervision Note: I independently interviewed and examined the patient and verified the porter history and physical, reviewed labs and image studies and agree with findings and care plan noted above. again no concerns this am. Vitals reviewed and stable. Generally, pleasant and in no acute distress. Breathing comfortably on room air. Diabetic foot infection/osteomyelitis with presumptive bacteremia (only 1 out of 2, but matches what grew in her foot), sepsis present on admission. S/p left 2nd toe amputation 05/19. Improving, continue cefazolin for 2 weeks per ID input. needs suture removal during wk of 06/10 - per podiatry. H/o recurrent UTI h/o ESBL - Without urinary symptoms - no treatment recommended. Anemia, acute on chronic - follow periodic CBC DMII - A1c 8.8. continue current management, after discharge from SNF, may need escalated med regimen, lifestyle changes. Otherwise as above Discharge to SNF when bed available Subjective Patient was evaluated this morning at bedside and found in NAD, alert and oriented. No complains today, denies LE pain. Denies chest pain, shortness of breath, fevers, chills, nausea, vomiting. No major changes. Pending placement. Review of Systems Review of Systems: as per hpi Physical Exam Physical Exam: General: Alert and oriented. No acute distress Cardiac: Regular rate and rhythm, no murmurs appreciated Respiratory: Lungs clear to auscultation bilaterally, No increased work of breathing Abdominal: non-tender, non-distended. Extremities: warm, well perfused Results & Data Results & Data Vital Signs (Past 12 Hours) Vital Signs Temp Pulse Resp BP BP Pulse Ox O2 Del Method 05/30/23 07:26 36.3 C L 61 16 123/65 96 Room Air 05/29/23 19:47 36.6 C 71 14 127/62 95 Room Air Resident Activity Tracking Resident Involvement: Resident Care Provided Care Provided: Adult [facility] Medicine
--- NOTE | 2023-05-31 06:58 | Hospitalist Progress Note ---
Date of Service May 31, 2023 Assessment & Plan (1) Sepsis: (2) DAVID (acute kidney injury): (3) Chronic ulcer of left foot: (4) Recurrent UTI (urinary tract infection): (5) Diabetes mellitus, type 2: (6) Hypothyroidism: (7) Gout: (8) Hypertension: (9) Paroxysmal atrial fibrillation: (10) Toe necrosis: (11) Status post amputation of toe of left foot: Plan Ms. Andrews is a 77-year-old female who was admitted to our service for management of sepsis secondary to UTI vs chronic ulcers. Deconditioning/weakness -PT/OT evaluated patient, recommending rehab placement -CM following, placement denied, consider outpatient/in-home PT. Staph aureus Bacteremia -Patient with wound cultures positive for Staph aureus and one sample from initial blood culture positive for staph species -Abx: Cefazolin IV 2 g daily -Repeat blood cultures negative. -TTE without valvular vegetations. -ID consult placed: Second left toe pathology significant for osteomyelitis with clear margins. Recommending 2 weeks of IV cefazolin with weekly CBC and CMP, last day of abx 06/02/2023. Repeat blood cultures 1 week after antibiotic completion. Sepsis // Necrotic 2nd left toe // Chronic ulcer of left foot -Sepsis resolved. -Wound cultures + MSSA. -Antibiotic coverage with cefazolin. Status post 3 days of meropenem and 2 days of daptomycin. -Podiatry consulted S/p bedside debridement S/p amputation of necrotic second toe of her left foot (05/19/2023). Pathology showing osteomyelitis. Margins were clear - Dr. Cervantes's office will schedule patient for outpatient follow up the week of 06/11/23 for removal of stitches. -Wound care consulted. Anemia -Stable hemoglobin. Patient asymptomatic, continue to monitor Abdominal pain // Constipation -Patient having adequate bowel movements. Abdominal pain resolved -Continue daily MiraLAX DM-II, uncontrolled with associated peripheral neuropathy -Hemoglobin A1c 8.8% -Hold home medications. -Sliding scale initiated. Pharmacist diabetes management consulted. DAVID - Resolved -Resolved -Creatinine back to baseline. Recurrent UTI- ESBL -Patient with known history of recurrent UTIs, as well as some UTIs with ESBL. -No UTI noted on urinalysis and urine cultures. Hypothyroidism -Continue home medications. -TSH of 1.047 Gout - Continue home meds HTN -Continue home medication A-fib - On Xarelto - On telemetry Dispo: Anticipate discharge to home upon completion of IV abx, CM following, will need in home PT Nutrition: DM 2 and heart healthy Code status: Full code DVT ppx: Continue home Xarelto Admission and Anticipated Discharge Date Admission Date: May 16, 2023 Supervising Physician Co-Signing Physician Notes Attending Physician Supervision Note: I independently interviewed and examined the patient and verified the porter history and physical, reviewed labs and image studies and agree with findings and care plan noted above. again no concerns this am. Vitals reviewed and stable. Generally, pleasant and in no acute distress. Breathing comfortably on room air. Diabetic foot infection/osteomyelitis with presumptive bacteremia (only 1 out of 2, but matches what grew in her foot), sepsis present on admission. S/p left 2nd toe amputation 05/19. Improving, continue cefazolin for 2 weeks per ID input. needs suture removal during wk of 06/10 - per podiatry. H/o recurrent UTI h/o ESBL - Without urinary symptoms - no treatment recommended. Anemia, acute on chronic - follow periodic CBC DMII - A1c 8.8. blood sugars controlled with current management, after discharge from SNF, may need escalated med regimen, lifestyle changes. Otherwise as above Dispo - case management working on it. Subjective Patient was evaluated this morning at bedside and found in NAD, alert and oriented. No complains today, denies LE pain. Denies chest pain, shortness of breath, fevers, chills, nausea, vomiting. No major changes. Patient states that she would ideally like to go home and receive outpatient/in-home PT. Review of Systems Review of Systems: as per hpi Physical Exam Physical Exam: General: Alert and oriented. No acute distress Cardiac: Regular rate and rhythm, no murmurs appreciated Respiratory: Lungs clear to auscultation bilaterally, No increased work of breathing Abdominal: non-tender, non-distended. Extremities: warm, well perfused Results & Data Results & Data Vital Signs (Past 12 Hours) Vital Signs Temp Pulse Resp BP Pulse Ox O2 Del Method 05/30/23 20:08 36.5 C 66 16 118/70 95 Room Air Resident Activity Tracking Resident Involvement: Resident Care Provided Care Provided: Adult Hospital Medicine
--- NOTE | 2023-06-01 07:31 | Hospitalist Progress Note ---
Date of Service June 01, 2023 Assessment & Plan (1) Sepsis: (2) DAVID (acute kidney injury): (3) Chronic ulcer of left foot: (4) Recurrent UTI (urinary tract infection): (5) Diabetes mellitus, type 2: (6) Hypothyroidism: (7) Gout: (8) Hypertension: (9) Paroxysmal atrial fibrillation: (10) Toe necrosis: (11) Status post amputation of toe of left foot: Plan Ms. Andrews is a 77-year-old female who was admitted to our service for management of sepsis secondary to UTI vs chronic ulcers. Deconditioning/weakness -PT/OT evaluated patient, recommending rehab placement -CM following, placement denied, consider outpatient/in-home PT. Staph aureus Bacteremia -Patient with wound cultures positive for Staph aureus and one sample from initial blood culture positive for staph species -Abx: Cefazolin IV 2 g daily -Repeat blood cultures negative. -TTE without valvular vegetations. -ID consult placed: Second left toe pathology significant for osteomyelitis with clear margins. Recommending 2 weeks of IV cefazolin with weekly CBC and CMP, last day of abx 06/02/2023. Repeat blood cultures 1 week after antibiotic completion. Sepsis // Necrotic 2nd left toe // Chronic ulcer of left foot -Sepsis resolved. -Wound cultures + MSSA. -Antibiotic coverage with cefazolin. Status post 3 days of meropenem and 2 days of daptomycin. -Podiatry consulted S/p bedside debridement S/p amputation of necrotic second toe of her left foot (05/19/2023). Pathology showing osteomyelitis. Margins were clear - Dr. Cervantes's office will schedule patient for outpatient follow up the week of 06/11/23 for removal of stitches. -Wound care consulted. Anemia -Stable hemoglobin. Patient asymptomatic, continue to monitor Abdominal pain // Constipation -Patient having adequate bowel movements. Abdominal pain resolved -Continue daily MiraLAX DM-II, uncontrolled with associated peripheral neuropathy -Hemoglobin A1c 8.8% -Hold home medications. -Sliding scale initiated. Pharmacist diabetes management consulted. DAVID - Resolved -Resolved -Creatinine back to baseline. Recurrent UTI- ESBL -Patient with known history of recurrent UTIs, as well as some UTIs with ESBL. -No UTI noted on urinalysis and urine cultures. Hypothyroidism -Continue home medications. -TSH of 1.047 Gout - Continue home meds HTN -Continue home medication A-fib - On Xarelto - On telemetry Dispo: Anticipate discharge to home upon completion of IV abx, CM following, will need in home PT Nutrition: DM 2 and heart healthy Code status: Full code DVT ppx: Continue home Xarelto Admission and Anticipated Discharge Date Admission Date: May 16, 2023 Supervising Physician Co-Signing Physician Notes Attending Physician Supervision Note: I independently interviewed and examined the patient and verified the porter history and physical, reviewed labs and image studies and agree with findings and care plan noted above. again no concerns this am. Vitals reviewed and stable. Generally, pleasant and in no acute distress. Breathing comfortably on room air. Diabetic foot infection/osteomyelitis with presumptive bacteremia (only 1 out of 2, but matches what grew in her foot), sepsis present on admission. S/p left 2nd toe amputation 05/19. Improving, continue cefazolin for 2 weeks per ID input. needs suture removal during wk of 06/10 - per podiatry. H/o recurrent UTI h/o ESBL - Without urinary symptoms - no treatment recommended. Anemia, acute on chronic - follow periodic CBC DMII - A1c 8.8. blood sugars controlled with current management - lantus 25 am and 20 hs with log. on lantus/dulaglutide/metformin at home. Otherwise as above Dispo - case management working on it. Subjective Patient was evaluated this morning at bedside and found in NAD, alert and oriented. No complains today, denies LE pain. Denies chest pain, shortness of breath, fevers, chills, nausea, vomiting. No major changes. Patient states that she would ideally like to go home after IV abx completed, amenable to home PT if approved. Review of Systems Review of Systems: as per hpi Physical Exam Physical Exam: General: Alert and oriented. No acute distress Cardiac: Regular rate and rhythm, no murmurs appreciated Respiratory: Lungs clear to auscultation bilaterally, No increased work of breathing Abdominal: non-tender, non-distended. Extremities: LE with clean dressing Results & Data Results & Data Vital Signs (Past 12 Hours) Vital Signs Temp Pulse Resp BP Pulse Ox O2 Del Method 06/01/23 07:14 36.6 C 64 16 132/68 96 Room Air 05/31/23 20:26 36.3 C L 61 15 120/62 95 Room Air Resident Activity Tracking Resident Involvement: Resident Care Provided Care Provided: Adult Hospital Medicine
--- NOTE | 2023-06-02 06:55 | Discharge Summary ---
Date of Service June 02, 2023 Admission HPI Per Admitting Provider Patient is a 77-year-old female who presents to the hospital with not feeling well for the past few days. Patient was recently diagnosed with a UTI and started on Macrobid for 2 weeks. She just finished her Macrobid 2 days ago. She has been feeling weak and having chills. Her sugars have been running high. She still continues to have urinary frequency. She also complains of discharge on her left foot that started a couple days ago. She also complains of feeling some nausea and lightheadedness. Patient also had some episodes of confusion and states that she was forgetting her date of though this quic kly resolved. She has been feeling lightheaded and nauseous as well. On admission, Patient was given 2 L fluid and cefepime. States that she is no longer having any confusion. States that she feels better than still feels weak. Admission Exam Per Admitting Provider Constitutional: well-appearing, no acute distress HEENT: NCAT, no conjunctival injection CV: regular rhythm, systolic murmur, extremities well-perfused, no LE edema Resp: CTABL, no wheezes/rales/rhonchi appreciated, no increased work of breathing GI: soft, nondistended, nontender, BS normoactive MSK: no gross deformities appreciated Skin: Discharge on the left foot, left second toe with erythema and foul odor. Erythema spreads up the foot to the distal left leg. Neuro: alert, oriented, no focal neurologic deficit appreciated Principal Diagnosis Sepsis Discharge Exam General: Alert and oriented. No acute distress Cardiac: Regular rate and rhythm, no murmurs appreciated Respiratory: Lungs clear to auscultation bilaterally, No increased work of breathing Abdominal: non-tender, non-distended. Extremities: LE with clean dressing Discharge Data Allergies Allergy/AdvReac Type Severity Reaction Status Date / Time sulfamethoxazole Allergy Intermediate Hives Verified 05/16/23 20:35 [From Bactrim] tetanus toxoid, adsorbed Allergy Intermediate LOCALIZED Verified 05/16/23 20:35 REACTION (arm swelling), MADE HER FEEL SICK trimethoprim [From Bactrim] Allergy Intermediate Hives Verified 05/16/23 20:35 amoxicillin AdvReac Intermediate "GOT Verified 05/16/23 20:35 C-DIFF" dalbavancin [From Dalvance] AdvReac Intermediate Vomiting Verified 05/16/23 20:35 minocycline AdvReac Intermediate HEADACHES Verified 05/16/23 20:35 tetracycline AdvReac Intermediate HEADACHES Verified 05/16/23 20:35 Consultations 05/16/23 20:19 ED Decision to Admit Stat 05/17/23 13:17 Consult Podiatry Routine 05/21/23 11:22 Consult Infectious Diseases Routine Procedures Performed Operation Date: 05/19/23 07:30 Actual Procedures p Left Second Toe Amputation(Left) - Reno Cervantes DPM, MS Ordered Studies 05/16/23 18:56 CT head/brain wo con Stat 05/16/23 19:24 CT foot LT wo con Stat Hospital Course (1) Sepsis: (2) DAVID (acute kidney injury): (3) Chronic ulcer of left foot: (4) Recurrent UTI (urinary tract infection): (5) Diabetes mellitus, type 2: (6) Hypothyroidism: (7) Gout: (8) Hypertension: (9) Paroxysmal atrial fibrillation: (10) Toe necrosis: (11) Status post amputation of toe of left foot: Plan Ms. Andrews is a 77-year-old female who was admitted to our service for management of sepsis secondary to UTI vs chronic ulcers. Deconditioning/weakness -PT/OT evaluated patient, recommended rehab placement -Placement denied, discharged with rx for outpatient PT Staph aureus Bacteremia -Wound cultures positive for Staph aureus and one sample from initial blood culture positive for staph species -Repeat blood cultures negative. -TTE without valvular vegetations. -ID consult placed: Second left toe pathology significant for osteomyelitis with clear margins. Patient treated with IV cefazolin x2 weeks - Will need repeat blood cultures 1 week after discharge (06/08) Sepsis // Necrotic 2nd left toe // Chronic ulcer of left foot -Wound cultures + MSSA. -Antibiotic tx with cefazolin -Podiatry consulted S/p bedside debridement S/p amputation of necrotic second toe of her left foot (05/19/2023). Pathology showing osteomyelitis. Margins were clear - Dr. Cervantes's office to schedule patient for outpatient follow up the week of 06/11/23 for removal of stitches. - Follow up with wound care center for ongoing wound care DM-II, uncontrolled with associated peripheral neuropathy -Hemoglobin A1c 8.8% -Wasn't using trulicity at home. needed lantus at 25 am and 20 units while at hospital. new rx for lantus sent with this dose. -should check blood sugar readings and f/u with PCP and review doses. DAVID - Resolved Hypothyroidism -Continue home medications. -TSH of 1.047 Gout - Continue home meds HTN -Continue home medication A-fib - Continue Xarelto Total Time Total Time Spent Total Time Spent (In Minutes): see attending attestation Discharge Plan Discharge Items Patient Disposition: Home - Self-Care Reason For Visit: SEPSIS, HYPERGLYCEMIA Discharge Diagnosis: Osteomyelitis, s/p amputation of left second toe Condition on Discharge: Serious Activity: As commented below Activity Comment: progress activity as tolerated and as directed by physical therapy Non-emergency contact: Primary Care Provider and Surgeon Call non-emergency contact if: you have any medication questions, your pain is not controlled, your wound has increased drainage and your wound pain has increased Follow-up/Referrals: Reno Perez MD [Primary Care Provider] - Diet: Carb Consistent or DM2 Addtl Attending Provider Instructions: You were admitted to the hospital for management of an infection in your toe that required amputation of your left second toe. We have completed a course of IV antibiotics while in the hospital. Upon discharge, we ask that you: - Please follow up with your primary care provider as soon as possible, ideally in the next 2-3 days, for ongoing care as you will need to have repeat blood cultures drawn 1 week from discharge (06/08). - We ask that you also call the wound care center to follow up for ongoing wound care. - Dr. Cervantes's office should be calling to schedule you for the week of 06/10 - if you do not hear from his office by Sunday evening, please call to schedule your follow up to have stitches removed. - You were discharged with a written prescription for outpatient physical therapy services. Please present this to the PT office of your choice following discharge. A discharge summary will be sent to your primary care physician to ensure continuity of care. Please bring this discharge summary with you to your next office appointment so that your provider can review it at that time. Medications: Your medication list has been reviewed and reconciled upon discharge to ensure accuracy and continuity of care. An updated list of all your medications is included with your hospital discharge paperwork. Please review this list closely and make note of any changes to your medications. No changes were made to your home medications - please continue to take all medications as previously directed. Follow up appointments: - Make a follow up appointment with your PCP within the next week. It is very important that you follow up with them shortly after discharge from the hospital. - Keep all of your follow up appointments as already scheduled. If you cannot make an appointment, notify your provider. CONTACT YOUR PRIMARY CARE PROVIDER if you experience any of the following: - Difficulty following your treatment plan - Difficulty taking any of your medications CALL 911 OR GO TO THE EMERGENCY DEPARTMENT if you experience any of the fo llowing: - Sudden, severe abdominal pain or nausea/vomiting - Severe chest pain or chest pain that radiates to your jaw or arm - Sudden, severe shortness of breath or difficulty breathing Pending Studies at Discharge: No Stand-Alone Forms: My [facility] [employer], Smoking Cessation Medications and DC Order Prescriptions: Continued nitroglycerin [Nitrostat] 0.4 mg tablet, sublingual 0.4 mg Sublingual Q5M PRN (Reason: Chest Pain) Qty: 25 6RF Patient Comments: last use last week 2 doses Rx Instructions: Call 911 for chest pain that exceeds 3 doses metformin 500 mg tablet 500 mg PO QPM Qty: 90 3RF atorvastatin 80 mg tablet 80 mg PO HS Qty: 90 3RF Rx Instructions: TAKE 1 TABLET BY MOUTH AT BEDTIME levothyroxine 125 mcg tablet 125 mcg PO DAILY Qty: 30 5RF metoprolol succinate 50 mg tablet extended release 24 hr 50 mg PO BID Qty: 180 3RF dulaglutide 4.5 mg/0.5 mL pen injector 4.5 mg SQ WEEKLY Qty: 2 5RF Patient Comments: wednesdays Rx Instructions: SUNDAYS Myrbetriq 50 mg tablet extended release 24 hr 50 mg PO DAILY Qty: 90 0RF methenamine hippurate 1 gram tablet 1 g PO BID Qty: 180 0RF Premarin 0.625 mg/gram cream 0.625 mg vaginal 2XWK Hold Instructions: Home Medication placed on hold at Doctor's office Rx Instructions: ON HOLD D/T CATHING SELF. off 5 days; repeat cycle (DME) blood-glucose meter [OneTouch Verio Flex meter] Misc See Rx Instructions .ROUTE .MEDSUPPLY Qty: 1 0RF Rx Instructions: As directed (DME) pen needle, diabetic [BD Daly 2nd Gen Pen Needle] 32 gauge x 5/32" needle See Rx Instructions miscellaneous .MEDSUPPLY Qty: 100 3RF Rx Instructions: Change pen needle every day (DME) pen needle, diabetic [BD Daly 2nd Gen Pen Needle] 32 gauge x 5/32" needle See Rx Instructions .ROUTE .MEDSUPPLY Qty: 100 3RF Rx Instructions: change a new pen needle daily nitrofurantoin monohyd/m-cryst [Macrobid] 100 mg capsule 100 mg PO BID Qty: 28 0RF Rx Instructions: STARTED 04/27/23 FOR 14 DAYS must administer with a meal/food (DME) OneTouch Verio test strips Strip See Rx Instructions .ROUTE .MEDSUPPLY Qty: 100 5RF Dose Instruction: As directed Rx Instructions: test 3x a day (DME) lancets [OneTouch Delica Plus Lancet] 30 gauge misc See Rx Instructions miscellaneous .MEDSUPPLY Qty: 100 5RF Rx Instructions: change new needle 3x a day multivitamin Tablet 1 tab PO QAM Patient Comments: take late in the am gabapentin 400 mg Capsule 400 mg PO TID potassium 99 mg Tablet 1 tab PO QPM cyanocobalamin-cobamamide [B-12 Plus] 5,000-100 mcg Tablet, Sublingual 1,000 mcg sublingual QAM calcium carbonate-vitamin D3 [Calcium 500 + D] 500 mg(1,250mg) -200 unit tablet 1 tab PO BID Patient Comments: chewables [id number] 3.5-400-5,000 [id number] Ointment In Packet 1 applic TOPICAL DIRECTED PRN (Reason: skin irritation ) Xarelto 15 mg tablet 15 mg PO QDD Rx Instructions: must administer with evening meal ascorbic acid (vitamin C) [Vitamin C] 500 mg Tablet 500 mg PO DAILY Patient Comments: noon time prednisone 5 mg Tablet 5 mg PO QAM ferrous sulfate [iron] 325 mg (65 mg iron) tablet 325 mg PO Q OTHER DAY Patient Comments: takes late morning cyclosporine [Restasis] 0.05 % Dropperette 1 drp OPB Q12H diclofenac sodium 1 % Gel 2 g TOPICAL QID PRN (Reason: Pain) amiodarone 200 mg tablet 200 mg PO QAM famotidine 40 mg tablet 40 mg PO QPM Rx Instructions: TAKE 1 TABLET BY MOUTH EVERY DAY allopurinol 100 mg tablet 100 mg PO QAM Rx Instructions: TAKE 1 TABLET BY MOUTH EVERY MORNING valacyclovir 500 mg tablet 500 mg PO QPM Rx Instructions: TAKE 1 TABLET BY MOUTH EVERY EVENING esomeprazole magnesium 40 mg capsule,delayed release(DR/EC) 40 mg PO QAM Rx Instructions: TAKE 1 CAPSULE BY MOUTH EVERY DAY triamterene-hydrochlorothiazid 37.5-25 mg tablet 1 tab PO QAM Rx Instructions: TAKE 1 TAB ORALLY DAILY IN THE MORNING duloxetine 30 mg capsule,delayed release(DR/EC) 30 mg PO QAM Rx Instructions: TAKE 1 CAPSULE BY MOUTH EVERY DAY Changed insulin glargine [Lantus Solostar U-100 Insulin] 100 unit/mL (3 mL) insulin pen 45 unit subcut DIRECTED Qty: 15 1RF Rx Instructions: 25 units in the morning and 20 units at night. Discharge Orders: Discharge Order (Routine); Ordered 06/02/23 Ordered By: Zi Castellano/Other Patient Handouts: Diabetes Foot Infections Tx, Diabetes: Inspecting Your Feet Admission Data Admit Date/Time: 05/16/23 21:13 Attending Provider: Anat Carnes Admit Provider: Yan Burrows Primary Care Provider: Reno Perez Other Providers: [facility]; Tahira Mandujano [facility]; [facility]; Austen Prescott; Reno Cervantes; Monisha Maher; Tayla Adames; Natasha Willingham; Maryan Allison; Emmy Rocha; Peggy Verma; Tamar Lee; Miri Hurd; Katerin Toscano Other Interventions: Discharge Summary Assessment (RN) Last Done: 06/02/23 12:56 Supervising Physician Co-Signing Physician Notes Attending Physician Supervision Note: I independently interviewed and examined the patient and verified the porter history and physical, reviewed labs and image studies and agree with findings and care plan noted above. no concerns this am. Vitals reviewed and stable. Generally, pleasant and in no acute distress. Breathing comfortably on room air. Diabetic foot infection/osteomyelitis with presumptive bacteremia (only 1 out of 2, but matches what grew in her foot), sepsis present on admission. S/p left 2nd toe amputation 05/19. Improving, finished cefazolin for 2 weeks per ID input. needs suture removal during wk of 06/10 - per podiatry. will call podiatry to schedule appointment. H/o recurrent UTI h/o ESBL - Without urinary symptoms - no treatment recommended. DMII - A1c 8.8. blood sugars controlled with current management - lantus 25 am and 20 hs with log. on lantus/dulaglutide/metformin at home but not taking dulaglutide. sent home with lantus 25am 20hs dose. Resident Activity Tracking Resident Involvement: Resident Care Provided Care Provided: Adult Hospital Medicine
== END 2023-06-02 14:47 | disposition home or self-care (01) | DRG 854 ==
LOC: ED 18:27 → 2S 21:13 → SUATTDRO 21:13 → 2S 22:13 → 3W 05-21 21:59

== ENCOUNTER 2023-06-21 11:37 | Inpatient (IN) ==
[2023-06-21 12:55] LABS: Basophils # (auto) 0.06 K/uL (0.00-0.20); Basophils % (auto) 0.4 %; Eosinophils # (auto) 0.14 K/uL (0.00-0.50); Hemoglobin 11.1 g/dl (12.0-16.0); Immature Granulocytes # (auto) 0.16 K/uL (0.01-0.20); Immature Granulocytes % (auto) 1.1 %; Lymphocytes # (auto) 1.99 K/uL (1.20-3.40); Lymphocytes % (auto) 13.7 %; Mean Corpuscular Hemoglobin 31.4 pg (25.0-34.0); Mean Corpuscular Hgb Conc 32.6 g/dL (32.0-36.0); Mean Platelet Volume 12.2 fL (9.4-12.4); Monocytes # (auto) 1.43 K/uL (0.11-0.59); Monocytes % (auto) 9.8 %; Neutrophils # (auto) 10.74 K/uL (1.40-6.50); Platelet Count 214 K/uL (130-400); RDW Coefficient of Variation 15.3 % (11.5-14.5); RDW Standard Deviation 53.6 fL (36.4-46.3); Red Blood Count 3.54 M/uL (4.20-5.40); White Blood Count 14.52 K/ul (4.8-10.8)
[2023-06-21 13:04] LABS: INR 1.1 (0.9-1.1); Partial Thromboplastin Ratio 1.1; Partial Thromboplastin Time 31 Seconds (21-31); Prothrombin Time 12.2 Seconds (9.0-12.0)
[2023-06-21 13:21] LABS: Albumin Level 3.8 gm/dl (3.4-5.0); Anion Gap 11 (3-11); Bilirubin,Total 1.1 mg/dl (0.2-1.0); Carbon Dioxide 27 mmol/L (21-32); Chloride 96 mmol/L (98-107); Potassium 3.8 mmol/L (3.5-5.1); Sodium 134 mmol/L (136-145)
--- NOTE | 2023-06-21 13:22 | Emergency Department Note ---
Impression & Plan Bacteremia, Leukocytosis, Weakness, Infection of left foot ED Provider Note NAME: KATY DING AGE: 78 SEX: F : 1945 ARRIVES VIA: Walk-In INFORMANT: [Patient] ED PROVIDER(S): [Yan Steven MD] CHIEF COMPLAINT: Abnormal labs HISTORY OF PRESENT ILLNESS: The patient is a 78-year-old female who was in this hospital last month into the beginning of this month for sepsis. She had an infection in her left foot. Methicillin sensitive staph grew. The patient did have an operation for the infection. In the last few days, the patient has not felt well. She has been tired, feeling like she is in a fog. She has been weak. She has not had cough or congestion, no urinary complaints. No vomiting. No known fever. Her doctor's office con some blood cultures on the , 3 days ago, both bottles have returned positive for methicillin sensitive staph. The patient was referred to our ER. PMHx/PSHx/Social Hx: See Below PHYSICAL EXAM: GENERAL: Patient is in no acute distress. HEENT: No acute trauma, normocephalic atraumatic, mucous membranes moist, no nasal congestion. NECK: No stridor, no adenopathy, no meningismus, trachea is midline. LUNGS: A few scattered crackles heard bilaterally, no wheezing, no respiratory distress. HEART: 2/6 systolic murmur, regular rate and rhythm. ABDOMEN: Soft, nontender, no peritonitis. EXTREMITIES: No cyanosis. The patient has an area to the plantar aspect of her left foot just at the base of the first toe that shows some erythema and contusion consistent with a site of infection. No ascending warmth noted. NEUROLOGIC: Oriented x 3, no acute motor or sensory deficits, no focal weakness. SKIN: No jaundice, no diaphoresis. DIFFERENTIAL DIAGNOSIS: Bacteremia or sepsis, osteomyelitis, abscess, cellulitis, UTI, among others. EMERGENCY DEPARTMENT PROCEDURES: MEDICAL DECISION MAKING: Patient does have a moderate leukocytosis with a white count of 14.5--consistent with infection. A very mild anemia was noted. The anemia was not a new finding. Her hemoglobin today was actually better than her recent testing. There was a normal platelet count. No concerning coagulopathy. There was some mild renal insufficiency with a creatinine of 1.26. No electrolyte abnormality in need of emergent correction. A few subtle liver enzyme elevations were seen. Urinalysis result is pending. CT of the left foot is pending. The patient's blood cultures from a few days ago returned positive for methicillin sensitive staph. By exam, she appears to have an infection in her left foot at the base of her first toe. The patient was given IV saline, IV Ancef. She is going require a hospital stay. She may require orthopedic or podiatric surgical intervention. I did speak with the patient, I did speak with case management. We are waiting for the results of the CT scan to confirm whether or not there is a component of osteomyelitis present. She understands the need for a hospital stay. She understands she may require repeat surgical intervention. I spoke with case management, the on-call hospitalist was consulted. Prior/Outside records/notes reviewed: Discharge summary note from 06/02/2023 discussing her presentation for sepsis and the care while in the hospital. Imaging/x-ray results per my interpretation: Chronic Medical/Social conditions affecting care: Advanced age. Care/Management discussed with: Case management, the on-call hospitalist. Level of care consideration(s): After review of the information above and other included data: --I believe the patient requires escalation of care to admission DISPOSITION: Admission Past Med/Surg History Medical History Toe necrosis Sepsis Encounter for colorectal cancer screening Chest pain RE-OCCURING ON OCC/ MOST RECENT LAST WEEK / USED NITRO FOR DENIES CHANGE IN BASELINE OCCURENCE DETAILS PT HAS DISCUSSED PAST OCCURENCES WITH DR OROPEZA History of colon polyps -12/01 were normal and 1 something abdnormal/reason for upcoming colonoscopy Incomplete bladder emptying self cath tid Overactive bladder Wheelchair dependence pt states she can stand and pivot on her own On antibiotic therapy preventative for recurring wound infection to rt foot and recurring UTIs - abx tx through [facility] line completed 3 - 4 weeks ago current : wound on foot doing really well per pt/no current s/s uti History of ESBL E. coli infection Rectal ulcer hx Arthritis Charcot's joint of foot in type 2 diabetes mellitus Sensorineural hearing loss of both ears Hemorrhoids, internal, with bleeding hx Stress incontinence in female Paroxysmal atrial fibrillation dx 2015 - on xarelto - follows with Dr. 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 CAD (coronary artery disease) CABG X 3 (2014) Fibromyalgia Psoriatic arthritis ON CHRONIC PREDNISONE Osteoarthritis Gout IBS (irritable bowel syndrome) Diabetes mellitus, type 2 NIDDM Hypothyroidism Anemia hx Myocardial Infarction 2014 Hypertension Hyperlipidemia Surgical History Status post amputation of toe of left foot History of surgery History of left knee surgery History of carpal tunnel surgery of left wrist (~04/20/20) History of repair of rotator cuff History of dilatation and curettage History of bilateral tubal ligation Charcot's joint of foot History of total knee replacement History of ankle surgery History of surgery History of bladder repair surgery History of colonoscopy History of tooth extraction History of tonsillectomy History of adenoidectomy History of cataract surgery History of coronary artery bypass graft History of cardiac cath Family History Mother Family hx of colon cancer Cardiac disorder Colorectal cancer Cancer Hypertension Father Cardiac disorder Lung cancer Hypertension Grandmother (Maternal) Stroke Other No family history of adverse response to anesthesia Denies family history of Ovarian cancer Breast cancer Social History Smoking Status: Never smoker Second Hand Exposure: No; Do You Dip or Chew Tobacco: No; Hx Alcohol Use: Yes Alcohol type: wine Alcohol Intake Frequency: Monthly or Less Hx Substance Use: No Preferred Language: Portuguese Communication Ability: Effective Visual Impairment: Limited Hearing Ability: Use of Hearing Aid Chrome Tanning Drum Operator Required: No Beliefs That Will Affect Care: None marital status: Current Living Situation: Spouse current occupational status: retired Feels Safe at Home: Yes Diet: diabetic and regular caffeine: No Do you think of yourself as: straight/heterosexual Gender Identity: Female Assistive Devices: Special Shoe and Wheelchair Allergies Allergies Allergy/AdvReac Type Severity Reaction Status Date / Time sulfamethoxazole Allergy Intermediate Hives Verified 06/18/23 14:38 [From Bactrim] tetanus toxoid, adsorbed Allergy Intermediate LOCALIZED Verified 06/18/23 14:38 REACTION (arm swelling), MADE HER FEEL SICK trimethoprim [From Bactrim] Allergy Intermediate Hives Verified 06/18/23 14:38 amoxicillin AdvReac Intermediate "GOT Verified 06/18/23 14:38 C-DIFF" dalbavancin [From Sarwatameseris] AdvReac Intermediate Vomiting Verified 06/18/23 14:38 minocycline AdvReac Intermediate HEADACHES Verified 06/18/23 14:38 tetracycline AdvReac Intermediate HEADACHES Verified 06/18/23 14:38 Home Meds Home Medications Medication Instructions Recorded Confirmed gabapentin 400 mg capsule 400 mg PO TID 02/19/18 06/18/23 multivitamin 1 tab PO QAM 02/19/18 06/18/23 potassium 99 mg tablet 1 tab PO QPM 02/19/18 06/18/23 cyanocobalamin (B12)-cobamamide 1,000 mcg sublingual QAM 03/12/18 06/18/23 5,000 mcg-100 mcg sublingual tablet (B-12 Plus) calcium carbonate 500 mg-vitamin 1 tab PO BID 06/14/20 06/18/23 D3 5 mcg (200 unit) tablet (Calcium 500 + D) conjugated estrogens 0.625 mg/gram 0.625 mg vaginal 2XWK 03/07/21 06/18/23 vaginal cream (Premarin) ferrous sulfate 325 mg (65 mg 325 mg PO Q OTHER DAY 05/16/21 06/18/23 iron) tablet (iron) neomycin-bacitracn Zn-polymyxn 3.5 1 applic topical DIRECTED PRN 10/18/21 06/18/23 mg-400 unit-5,000 unit top oint pkt skin irritation ascorbic acid (vitamin C) 500 mg 500 mg PO DAILY 05/23/22 06/18/23 tablet (Vitamin C) prednisone 5 mg tablet 5 mg PO QAM 05/23/22 06/18/23 rivaroxaban 15 mg tablet (Xarelto) 15 mg PO QDD 05/23/22 06/18/23 allopurinol 100 mg tablet 100 mg PO QAM 05/16/23 06/18/23 amiodarone 200 mg tablet 200 mg PO QAM 05/16/23 06/18/23 cyclosporine 0.05 % eye drops in a 1 drp OPB Q12H 05/16/23 06/18/23 dropperette (Restasis) diclofenac sodium 1 % topical gel 2 g topical QID PRN Pain 05/16/23 06/18/23 duloxetine 30 mg capsule,delayed 30 mg PO QAM 05/16/23 06/18/23 release esomeprazole magnesium 40 mg 40 mg PO QAM 05/16/23 06/18/23 capsule,delayed release famotidine 40 mg tablet 40 mg PO QPM 05/16/23 06/18/23 triamterene 37.5 1 tab PO QAM 05/16/23 06/18/23 mg-hydrochlorothiazide 25 mg tablet valacyclovir 500 mg tablet 500 mg PO QPM 05/16/23 06/18/23 Previous Rx's Medication Instructions Recorded nitroglycerin 0.4 mg sublingual 0.4 mg sublingual Q5M PRN Chest 03/29/20 tablet (Nitrostat) Pain #25 tabs metformin 500 mg tablet 500 mg PO QPM #90 tabs 07/19/22 atorvastatin 80 mg tablet 80 mg PO HS #90 tabs 08/16/22 blood sugar diagnostic (OneTouch #100 ea 11/10/22 Verio test strips) lancets 30 gauge (OneTouch Delica #100 ea 11/10/22 Plus Lancet) blood-glucose meter (OneTouch #1 ea 12/26/22 Verio Flex Meter) pen needle, diabetic 32 gauge x #100 ea 12/28/22 532" (BD Daly 2nd Gen Pen Needle) pen needle, diabetic 32 gauge x #100 ea 12/29/2232" (BD Daly 2nd Gen Pen Needle) metoprolol succinate 50 mg 50 mg PO BID #180 tabs 01/29/23 tablet,extended release 24 hr dulaglutide 4.5 mg/0.5 mL 4.5 mg (0.5 mL) subcut WEEKLY #2 mL 04/02/23 subcutaneous pen injector mirabegron 50 mg tablet,extended 50 mg PO DAILY #90 tabs 04/09/23 release 24 hr (Myrbetriq) methenamine hippurate 1 gram tablet 1 g PO BID #180 tabs 04/12/23 nitrofurantoin 100 mg PO BID #28 caps 04/27/23 monohydrate/macrocrystals 100 mg capsule (Macrobid) insulin glargine 100 unit/mL (3 45 unit (0.45 mL) subcut 06/02/23 mL) subcutaneous pen (Lantus DIRECTED #15 mL Solostar U-100 Insulin) levothyroxine 125 mcg tablet 125 mcg PO DAILY #30 tabs 06/06/23 Results & Data (ED) Vital Signs Vital Signs - 24 hr 06/21/23 11:51 06/21/23 13:21 Temperature 36.9 C 37.2 C Temperature Source Temporal Artery Scan Oral Pulse Rate 91 H Pulse Rate [Left Apical] 88 Pulse Rhythm [Left Apical] Regular Pulse Strength [Left Apical] Normal Respiratory Rate 15 17 Respiratory Effort / Characteristics Non-Labored Spontaneous Non-Labored Spontaneous Respiratory Depth Normal Normal Respiratory Pattern Regular Blood Pressure 132/75 Blood Pressure [Right Arm] 133/62 Blood Pressure Mean 94 Blood Pressure Mean [Right Arm] 85 Pulse Oximetry 95 93 Oxygen Delivery Method Room Air Room Air Sepsis Recent Fever Within 48 Hours No Sepsis New/Unexplained Change in Mental Status No Sepsis Action Taken by Nursing No Action Required Home Medications Current Medication List: was personally reviewed by me Laboratory Data Attestation: I reviewed the patient's lab results. 06/21/23 12:25 06/21/23 12:25 Lab Results 06/21/23 Range/Units 12:25 WBC 14.52 H (4.8-10.8) K/ul RBC 3.54 L (4.20-5.40) M/uL Hgb 11.1 L (12.0-16.0) g/dl Hct 34.0 L (37.0-47.0) % MCV 96.0 (80.0-100.0) fL MCH 31.4 (25.0-34.0) pg MCHC 32.6 (32.0-36.0) g/dL RDW Std Deviation 53.6 H (36.4-46.3) fL RDW Coeff of Kristen 15.3 H (11.5-14.5) % Plt Count 214 (130-400) K/uL MPV 12.2 (9.4-12.4) fL Immature Gran % (Auto) 1.1 % Neut % (Auto) 74.0 % Lymph % (Auto) 13.7 % Blanco % (Auto) 9.8 % Eos % (Auto) 1.0 % Baso % (Auto) 0.4 % Neut # (Auto) 10.74 H (1.40-6.50) K/uL Lymph # (Auto) 1.99 (1.20-3.40) K/uL Blanco # (Auto) 1.43 H (0.11-0.59) K/uL Eos # (Auto) 0.14 (0.00-0.50) K/uL Baso # (Auto) 0.06 (0.00-0.20) K/uL Immature Gran # (Auto) 0.16 (0.01-0.20) K/uL PT 12.2 H (9.0-12.0) Seconds INR 1.1 (0.9-1.1) APTT 31 (21-31) Seconds PTT Ratio 1.1 Sodium 134 L (136-145) mmol/L Potassium 3.8 (3.5-5.1) mmol/L Chloride 96 L (98-107) mmol/L Carbon Dioxide 27 (21-32) mmol/L Anion Gap 11 (3-11) BUN 27 H (6-23) mg/dl Creatinine 1.26 H (0.6-1.2) mg/dl Est Cr Clr Drug Dosing Not Reportable Est GFR ( Amer) 46.9 ml/min Est GFR (Non-Af Amer) 40.5 ml/min BUN/Creatinine Ratio 21.4 H (10-20) Glucose 203 H (70-99(Fasting)) mg/dl Calcium 10.0 (8.6-10.3) mg/dl Total Bilirubin 1.1 H (0.2-1.0) mg/dl AST 19 (13-39) U/L ALT 27 (7-52) U/L Alkaline Phosphatase 116 H (34-104) U/L Total Protein 8.0 (6.0-8.3) gm/dl Albumin 3.8 (3.4-5.0) gm/dl Globulin 4.2 H (2.5-4.0) gm/dl Albumin/Globulin Ratio 0.9 (0.9-2) Discharge Plan Visit Data Chief Complaint: Abnormal Labs/Diagnostic Testing Stated Complaint: REF BY DOC, ABNORMAL LABS ED Provider: Yan Steven Discharge Problem: Bacteremia, Leukocytosis, Weakness, Infection of left foot Patient Disposition: Admitted As Inpatient Condition: Fair Forms Stand Alone Forms: On License Of [facility] Prescriptions Prescriptions: No Action nitroglycerin [Nitrostat] 0.4 mg tablet, sublingual 0.4 mg Sublingual Q5M PRN (Reason: Chest Pain) Qty: 25 6RF Patient Comments: last use last week 2 doses Rx Instructions: Call 911 for chest pain that exceeds 3 doses metformin 500 mg tablet 500 mg PO QPM Qty: 90 3RF atorvastatin 80 mg tablet 80 mg PO HS Qty: 90 3RF Rx Instructions: TAKE 1 TABLET BY MOUTH AT BEDTIME metoprolol succinate 50 mg tablet extended release 24 hr 50 mg PO BID Qty: 180 3RF dulaglutide 4.5 mg/0.5 mL pen injector 4.5 mg SQ WEEKLY Qty: 2 5RF Patient Comments: wednesdays Rx Instructions: SUNDAYS Myrbetriq 50 mg tablet extended release 24 hr 50 mg PO DAILY Qty: 90 0RF methenamine hippurate 1 gram tablet 1 g PO BID Qty: 180 0RF levothyroxine 125 mcg tablet 125 mcg PO DAILY Qty: 30 5RF Premarin 0.625 mg/gram cream 0.625 mg vaginal 2XWK Hold Instructions: Home Medication placed on hold at Doctor's office Rx Instructions: ON HOLD D/T CATHING SELF. off 5 days; repeat cycle (DME) blood-glucose meter [OneTouch Verio Flex meter] Misc See Rx Instructions .ROUTE .MEDSUPPLY Qty: 1 0RF Rx Instructions: As directed (DME) pen needle, diabetic [BD Daly 2nd Gen Pen Needle] 32 gauge x 5/32" needle See Rx Instructions miscellaneous .MEDSUPPLY Qty: 100 3RF Rx Instructions: Change pen needle every day (DME) pen needle, diabetic [BD Daly 2nd Gen Pen Needle] 32 gauge x 5/32" needle See Rx Instructions .ROUTE .MEDSUPPLY Qty: 100 3RF Rx Instructions: change a new pen needle daily nitrofurantoin monohyd/m-cryst [Macrobid] 100 mg capsule 100 mg PO BID Qty: 28 0RF Rx Instructions: STARTED 04/27/23 FOR 14 DAYS must administer with a meal/food (DME) OneTouch Verio test strips Strip See Rx Instructions .ROUTE .MEDSUPPLY Qty: 100 5RF Dose Instruction: As directed Rx Instructions: test 3x a day (DME) lancets [OneTouch Delica Plus Lancet] 30 gauge misc See Rx Instructions miscellaneous .MEDSUPPLY Qty: 100 5RF Rx Instructions: change new needle 3x a day multivitamin Tablet 1 tab PO QAM Patient Comments: take late in the am gabapentin 400 mg Capsule 400 mg PO TID potassium 99 mg Tablet 1 tab PO QPM cyanocobalamin-cobamamide [B-12 Plus] 5,000-100 mcg Tablet, Sublingual 1,000 mcg sublingual QAM calcium carbonate-vitamin D3 [Calcium 500 + D] 500 mg(1,250mg) -200 unit tablet 1 tab PO BID Patient Comments: chewables [id number] 3.5-400-5,000 [id number] Ointment In Packet 1 applic TOPICAL DIRECTED PRN (Reason: skin irritation ) Xarelto 15 mg tablet 15 mg PO QDD Rx Instructions: must administer with evening meal ascorbic acid (vitamin C) [Vitamin C] 500 mg Tablet 500 mg PO DAILY Patient Comments: noon time prednisone 5 mg Tablet 5 mg PO QAM ferrous sulfate [iron] 325 mg (65 mg iron) tablet 325 mg PO Q OTHER DAY Patient Comments: takes late morning cyclosporine [Restasis] 0.05 % Dropperette 1 drp OPB Q12H diclofenac sodium 1 % Gel 2 g TOPICAL QID PRN (Reason: Pain) amiodarone 200 mg tablet 200 mg PO QAM famotidine 40 mg tablet 40 mg PO QPM Rx Instructions: TAKE 1 TABLET BY MOUTH EVERY DAY allopurinol 100 mg tablet 100 mg PO QAM Rx Instructions: TAKE 1 TABLET BY MOUTH EVERY MORNING valacyclovir 500 mg tablet 500 mg PO QPM Rx Instructions: TAKE 1 TABLET BY MOUTH EVERY EVENING esomeprazole magnesium 40 mg capsule,delayed release(DR/EC) 40 mg PO QAM Rx Instructions: TAKE 1 CAPSULE BY MOUTH EVERY DAY triamterene-hydrochlorothiazid 37.5-25 mg tablet 1 tab PO QAM Rx Instructions: TAKE 1 TAB ORALLY DAILY IN THE MORNING duloxetine 30 mg capsule,delayed release(DR/EC) 30 mg PO QAM Rx Instructions: TAKE 1 CAPSULE BY MOUTH EVERY DAY insulin glargine [Lantus Solostar U-100 Insulin] 100 unit/mL (3 mL) insulin pen 45 unit subcut DIRECTED Qty: 15 1RF Rx Instructions: 25 units in the morning and 20 units at night. Referrals Referrals: Reno Perez MD [Primary Care Provider] - Discharge Problem: Leukocytosis Qualifiers: Leukocytosis type: unspecified Qualified Code(s): D72.829 - Elevated white blood cell count, unspecified
--- NOTE | 2023-06-21 13:22 | History & Physical Report ---
Date of Service June 21, 2023 Assessment & Plan (1) MSSA bacteremia: Plan: Two separate positive Blood cultures drawn on 06/17 for MSSA; patient was asked to return the hospital Recent [place] admission 05/16-06/01: sepsis, diabetic foot, second left toe necrosis requiring amputation on 05/19 Patient completed 14 day course of Ancef in the hospital Leukocytosis at 14.52 with a neutrophil predominance CRP elevated at 9.15 ESR WNL PCT WNL Source: residual infection from left foot wound vs new sacral ulcer Ancef 2000 mg IV q8h Limited echo ordered to assess for new vavular vegetation; SELAM if needed A.m. CBC, BMP, CRP (2) Infection of left foot: Plan: Left foot CT revealed no evidence of acute osteomyelitis, but did note 9 mm fluid collection deep to the wound (potential small abscess) Podiatry consulted (Dr. Cervantes) (3) Sacral ulcer: Plan: Small sacral decubitus ulceration on clinical exam Pelvic CT revealed no fluid collection to suggest an abscess Daily wound care Wound care nurse consulted (4) Diabetes mellitus, type 2: Plan: Last A1c at 8.8% on 05/17/2023; no need to repeat Glucose 203 on admission Hold metformin, dulaglutide Patient is normally on 45 units of Lantus daily Lantus 20 u BID while inpatient SSI; with target BSG range 110-140mg/dL, CF 20, carb ratio 5 T2DM diet BSG ACHS Adjust regimen as needed (5) Sepsis: Plan: WBC + tachycardia ~100bpm on arrival + left foot wound v. sacral source Lactate elevated at 2.3, repeat pending IVF resuscitation w/ NSS 500mL + LR 2000mL Antibiotics (as above) (6) Paroxysmal atrial fibrillation: (7) CAD (coronary artery disease): (8) Dyslipidemia: (9) Hypothyroidism: (10) Depression: (11) Hypertension: (12) Psoriatic arthritis: Plan Disposition: Admit to PCU telemetry Full code T2DM, AHA diet now; will set for n.p.o. at midnight (podiatry consult pending - okay to eat with their clearance) VTE PPx: Continue home Xarelto History of Present Illness Chief Complaint: Positive blood cultures Primary Care Provider: Reno Perez MD Nadia is a 78-year-old female with PMH of T2DM, diabetic foot ulcer, Charcot fracture of the right foot, peripheral neuropathy, CAD s/p CABG x 3, psoriatic arthritis (on chronic prednisone), HTN, paroxysmal A-fib (on Xarelto), HTN, GERD, gout, dyslipidemia, hypothyroidism, and osteoporosis. She presented for positive blood cultures drawn on Saturday 06/17. Positive for Staph aureus (methicillin sensitive) on two separate cultures. Of note, patient was recently hospitalized from 05/16 to 06/01 for sepsis, which led to amputation of necrotic second toe on her left foot with Dr. Cervantes on 05/19/2023. Patient completed a course of Ancef x 14 days while in the hospital. She reports that she was feeling well when she left the hospital on 06/01, and has not had any problems except for yesterday when she developed a brain fog that was constant. She reports she had some dizziness both at rest and with exertion, and was incredibly fatigued; stayed in bed for most of the day yesterday. She started having diarrhea yesterday as well, but does not believe she had a fever. Did not take her temperature at home to check. Intermittent headaches yesterday, but she reports this was nothing new for her. No pain in her left foot (chronic neuropathy). No recent injuries to the foot or ankle. Patient does note that she has developed a sacral ulcer that is new. She reports that she took all of her regular morning medications today, and that there have been no recent change in medications. No sick contacts. Mildly tachycardic at time of admission; vitals otherwise stable. ED course: Ancef 2000 mg IV NSS 500mL IV ROS: Patient endorses fatigue, chills, dizziness/lightheadedness, brain fog, confusion, intermittent GRIGGS (ongoing), blurry vision (ongoing), ESTEVEZ, dry cough, nausea, diarrhea (started yesterday), and neuropathy in the feet bilaterally. Patient denies fever, night-sweats, chest pain, SOB at rest or laying on back, pleuritic CP, abdominal pain,vomiting, blood in the urine/stool, dysuria, burning with urination, and left foot pain. Allergies Allergy/AdvReac Type Severity Reaction Status Date / Time sulfamethoxazole Allergy Intermediate Hives Verified 06/18/23 14:38 [From Bactrim] tetanus toxoid, adsorbed Allergy Intermediate LOCALIZED Verified 06/18/23 14:38 REACTION (arm swelling), MADE HER FEEL SICK trimethoprim [From Bactrim] Allergy Intermediate Hives Verified 06/18/23 14:38 amoxicillin AdvReac Intermediate "GOT Verified 06/18/23 14:38 C-DIFF" dalbavancin [From Dalvance] AdvReac Intermediate Vomiting Verified 06/18/23 14:38 minocycline AdvReac Intermediate HEADACHES Verified 06/18/23 14:38 tetracycline AdvReac Intermediate HEADACHES Verified 06/18/23 14:38 Home Medications Medication Instructions Recorded Confirmed Type gabapentin 400 mg capsule 400 mg PO TID 02/19/18 06/21/23 History multivitamin 1 tab PO QAM 02/19/18 06/21/23 History potassium 99 mg tablet 1 tab PO QPM 02/19/18 06/21/23 History cyanocobalamin (B12)-cobamamide 1,000 mcg sublingual QAM 03/12/18 06/21/23 History 5,000 mcg-100 mcg sublingual tablet (B-12 Plus) nitroglycerin 0.4 mg sublingual 0.4 mg sublingual Q5M PRN Chest 03/29/20 06/21/23 Rx tablet (Nitrostat) Pain #25 tabs calcium carbonate 500 mg-vitamin 1 tab PO BID 06/14/20 06/21/23 History D3 5 mcg (200 unit) tablet (Calcium 500 + D) conjugated estrogens 0.625 mg/gram 0.625 mg vaginal 2XWK 03/07/21 06/21/23 History vaginal cream (Premarin) ferrous sulfate 325 mg (65 mg 325 mg PO Q OTHER DAY 05/16/21 06/21/23 History iron) tablet (iron) neomycin-bacitracn Zn-polymyxn 3.5 1 applic topical DIRECTED PRN 10/18/21 06/21/23 History mg-400 unit-5,000 unit top oint pkt skin irritation ascorbic acid (vitamin C) 500 mg 500 mg PO .AFTERNOON 05/23/22 06/21/23 History tablet (Vitamin C) prednisone 5 mg tablet 5 mg PO QAM 05/23/22 06/21/23 History rivaroxaban 15 mg tablet (Xarelto) 15 mg PO QAM 05/23/22 06/21/23 History metformin 500 mg tablet 500 mg PO QPM #90 tabs 07/19/22 06/21/23 Rx atorvastatin 80 mg tablet 80 mg PO HS #90 tabs 08/16/22 06/21/23 Rx blood sugar diagnostic (OneTouch #100 ea 11/10/22 06/18/23 Rx Verio test strips) lancets 30 gauge (OneTouch Delica #100 ea 11/10/22 06/18/23 Rx Plus Lancet) blood-glucose meter (OneTouch #1 ea 12/26/22 06/18/23 Rx Verio Flex Meter) pen needle, diabetic 32 gauge x #100 ea 12/28/22 06/18/23 Rx 5/32" (BD Daly 2nd Gen Pen Needle) pen needle, diabetic 32 gauge x #100 ea 12/29/22 06/18/23 Rx 5/32" (BD Daly 2nd Gen Pen Needle) metoprolol succinate 50 mg 50 mg PO BID #180 tabs 01/29/23 06/21/23 Rx tablet,extended release 24 hr dulaglutide 4.5 mg/0.5 mL 4.5 mg (0.5 mL) subcut WEEKLY #2 mL 04/02/23 06/21/23 Rx subcutaneous pen injector methenamine hippurate 1 gram tablet 1 g PO BID #180 tabs 04/12/23 06/21/23 Rx allopurinol 100 mg tablet 100 mg PO QAM 05/16/23 06/21/23 History amiodarone 200 mg tablet 200 mg PO QAM 05/16/23 06/21/23 History cyclosporine 0.05 % eye drops in a 1 drp OPB Q12H 05/16/23 06/21/23 History dropperette (Restasis) diclofenac sodium 1 % topical gel 2 g topical QID PRN Pain 05/16/23 06/21/23 History duloxetine 30 mg capsule,delayed 30 mg PO QAM 05/16/23 06/21/23 History release esomeprazole magnesium 40 mg 40 mg PO QAM 05/16/23 06/21/23 History capsule,delayed release famotidine 40 mg tablet 40 mg PO QPM 05/16/23 06/21/23 History triamterene 37.5 1 tab PO QAM 05/16/23 06/21/23 History mg-hydrochlorothiazide 25 mg tablet valacyclovir 500 mg tablet 500 mg PO QPM 05/16/23 06/21/23 History insulin glargine 100 unit/mL (3 45 unit (0.45 mL) subcut 06/02/23 06/21/23 Rx mL) subcutaneous pen (Lantus DIRECTED #15 mL Solostar U-100 Insulin) levothyroxine 125 mcg tablet 125 mcg PO QAM 06/21/23 06/21/23 History mirabegron 50 mg tablet,extended 50 mg PO QAM 06/21/23 06/21/23 History release 24 hr (Myrbetriq) Past Med/Surg History Medical History (Updated 06/21/23 @ 15:33 by Scotty Rosa PA-C) Sepsis Toe necrosis Encounter for colorectal cancer screening Chest pain RE-OCCURING ON OCC/ MOST RECENT LAST WEEK / USED NITRO FOR DENIES CHANGE IN BASELINE OCCURENCE DETAILS PT HAS DISCUSSED PAST OCCURENCES WITH DR OROPEZA History of colon polyps 8-12/01 were normal and 1 something abdnormal/reason for upcoming colonoscopy Incomplete bladder emptying self cath tid Overactive bladder Wheelchair dependence pt states she can stand and pivot on her own On antibiotic therapy preventative for recurring wound infection to rt foot and recurring UTIs - abx tx through picc line completed 3 - 4 weeks ago current : wound on foot doing really well per pt/no current s/s uti History of ESBL E. coli infection Rectal ulcer hx Arthritis Charcot's joint of foot in type 2 diabetes mellitus Sensorineural hearing loss of both ears Hemorrhoids, internal, with bleeding hx Stress incontinence in female Paroxysmal atrial fibrillation dx 2015 - on xarelto - follows with Dr. 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 03/12/2018. DONE AT [facility]. BLOCK WITH LMA. NO ISSUES. History of dilatation and curettage History of bilateral tubal ligation Charcot's joint of foot RIGHT FOOT (4 SURGERIES TOTAL) History of total knee replacement LEFT History of ankle surgery LEFT History of surgery BLADDER STIMULATOR IMPLANTED IN BACK- not sure if currently working History of bladder repair surgery R/T URINARY LEAKAGE History of colonoscopy History of tooth extraction History of tonsillectomy History of adenoidectomy History of cataract surgery RIGHT/LEFT History of coronary artery bypass graft CABG X 3 (2014) History of cardiac cath 2014= NO STENTS Family History Mother Family hx of colon cancer Cardiac disorder Colorectal cancer Cancer Hypertension Father Cardiac disorder Lung cancer Hypertension Grandmother (Maternal) Stroke Other No family history of adverse response to anesthesia Denies family history of Ovarian cancer Breast cancer Social History Smoking Status: Never smoker Second Hand Exposure: No; Do You Dip or Chew Tobacco: No; Hx Alcohol Use: Yes Alcohol type: wine Alcohol Intake Frequency: Monthly or Less Hx Substance Use: No Preferred Language: Croatian Communication Ability: Effective Visual Impairment: Limited Hearing Ability: Use of Hearing Aid 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 Required: No Beliefs That Will Affect Care: None marital status: Current Living Situation: Spouse current occupational status: retired Feels Safe at Home: Yes Diet: diabetic and regular caffeine: No Do you think of yourself as: straight/heterosexual Gender Identity: Female Assistive Devices: Special Shoe and Wheelchair Review of Systems 2 Review of Systems: See HPI above Physical Exam 2 Physical Exam: General: no acute distress; pleasant affect; non-toxic appearing; well- nourished; cooperative HEENT: normocephalic, atraumatic; no scleral icterus; PERRLA; vision and hearing intact Neck: supple; no lymphadenopathy; trachea midline Skin: warm, dry without signs of tenting; no cyanosis; no rashes, lesions, or erythema noted CV: chest wall NTP; RRR; S1/S2 normal; 2/6 systolic ejection murmur auscultated at the second ICS MCL; pulses intact and symmetric at radial, DP, and PT Lungs: no acute respiratory distress; symmetrical chest wall expansion; clear breath sounds across all lung singh w/o adventitious sounds; no wheezing ABD: Soft, NTP; BS present; no rebound/guarding; distention secondary to body habitus; purple bruising on the LLQ Sacrum: Pressure ulcer and erythema noted just above the sacrum (see photo below) Left foot: Nontender; only slightly warm to touch; see photos below MSK: no tics or fasciculations; no edema noted in the LEs b/l, nonerythematous Neuro: A&Ox3; normal mood and affect; fluent speech; no focal deficits; sensation is grossly diminished in the lower extremities bilaterally; she reports that she is able to feel intact, symmetric sensation above the knees, but not below Results & Data Results & Data Vital Signs (Past 12 Hours) Vital Signs Temp Pulse Resp BP Pulse Ox O2 Del Method 06/21/23 11:51 36.9 C 91 H 15 132/75 95 Room Air Laboratory Results Abnormal lab results 06/21/23 Range/Units 12:25 WBC 14.52 H (4.8-10.8) K/ul RBC 3.54 L (4.20-5.40) M/uL Hgb 11.1 L (12.0-16.0) g/dl Hct 34.0 L (37.0-47.0) % RDW Std Deviation 53.6 H (36.4-46.3) fL RDW Coeff of Kristen 15.3 H (11.5-14.5) % Neut # (Auto) 10.74 H (1.40-6.50) K/uL [place] # (Auto) 1.43 H (0.11-0.59) K/uL PT 12.2 H (9.0-12.0) Seconds Sodium 134 L (136-145) mmol/L Chloride 96 L (98-107) mmol/L Total Bilirubin 1.1 H (0.2-1.0) mg/dl Diagnostic Findings Foot CT 06/21/23 13:10 CT OF THE LEFT FOOT WITHOUT CONTRAST CLINICAL HISTORY: Possible osteomyelitis. COMPARISON STUDY: Left foot radiographs October 07, 2022. CT of the left foot May 16, 2023. TECHNIQUE: Axial images of the left foot were obtained without IV contrast. Sagittal and coronal reconstructions were viewed. Automated exposure control was utilized for the study. A dose lowering technique was utilized adhering to the principles of ALARA. FINDINGS: Distal left fibular internal fixation is partially imaged. No acute fracture within the left foot is identified. Old fractures of the distal left fifth metatarsal and the left fifth proximal phalanx are noted. Interval amputation of the left second toe since CT of May 16, 2023. No areas of bony erosion are identified to suggest acute osteomyelitis. Wound along the plantar medial aspect of the left first MTP joint is noted. This was shown on prior CT. Subcutaneous soft tissue swelling/induration is noted. There is no soft tissue gas. There is a possible small 9 mm fluid collection, deep to the wound, overlying the lateral sesamoid of the left first toe. This fluid collection was not shown on prior CT. No additional fluid collections are present. IMPRESSION: 1. Redemonstration of a wound along the plantar medial aspect of the left first MTP joint. Persistent subcutaneous induration/stranding favors cellulitis/phlegmon. This was shown on prior CT. Small associated 9 mm fluid collection, deep to the wound may reflect a small abscess. No additional fluid collections. No soft tissue gas. 2. No evidence for acute osteomyelitis within the left foot. 3. Interval left second digit amputation. ACT 112: Negative or not required by law. Electronically signed by: Gurdeep Fuller M.D. 06/21/2023 2:[address] 06/21/23 13:55 CT SCAN OF THE PELVIS WITHOUT IV CONTRAST CLINICAL HISTORY: Sacral infection. COMPARISON STUDY: Pelvic CT dated 03/01/2022. TECHNIQUE: CT scan of the pelvis is performed from the pelvic inlet to the proximal femora. Images are reviewed in the axial, sagittal, and coronal planes. IV contrast was not administered for this examination. A dose lowering technique was utilized adhering to the principles of ALARA. FINDINGS: The skeletal structures are osteopenic. No acute fracture is seen involving the hips or bony pelvis. No lytic or blastic lesion is seen. There is no evidence of avascular necrosis of the proximal femora. Mild arthritic change is noted in the hips. Degenerative sclerosis is seen in the sacroiliac joints. A small decubitus ulceration is suggested overlying the sacrococcygeal junction. Hyperdense material at the dermal surface is likely treatment-related. There is mild surrounding soft tissue infiltration. No fluid collection is seen to suggest abscess. There is no erosive or destructive bony change in the underlying sacrum to suggest osteomyelitis. A single lead sacral stimulator device is present in the right supragluteal soft tissues. Imaged portions of the lead appear intact. There is mild generalized atrophy of the regional musculature. No perineal soft tissue gas is seen. The bladder is distended but otherwise normal as imaged. There are calcified uterine fibroids. No adnexal lesion is seen. No intraperitoneal free air or abdominal ascites is identified in the pelvis. There is advanced diverticulosis of the imaged colon without CT evidence of acute diverticulitis. Imaged portions of the bowel show no evidence of obstruction. A normal appendix is seen in the right lower quadrant. There is no pelvic sidewall or inguinal lymphadenopathy. Advanced atherosclerotic calcification is noted in the iliac vessels. IMPRESSION: 1. No acute bony abnormality is seen in the pelvis. 2. There is evidence of a small sacral decubitus ulceration as above. No fluid collection is seen to suggest abscess. 3. Bladder distention. 4. Advanced colonic diverticulosis without CT evidence of acute diverticulitis. 5. Additional findings as above. ACT 112: Negative or not required by law. Dictated: 06/21/2023 2:50 PM Transcribed: 06/21/2023 3:25 PM Neville [id number] [email or web address] Electronically signed by: Yan Ruiz M.D. 06/21/2023 3:41 PM Code Status & VTE Plan Code Status Full code VTE Prophylaxis Plan VTE Prophylaxis will be ordered: Yes Supervising Physician Co-Signing Physician Notes Patient seen and examined, chart reviewed, case discussed with Scotty Rosa PA-C and I agree with the assessment and plan as above except as otherwise noted Labs and images reviewed Nadia is a 78-year-old female with past medical history of type 2 diabetes, hypothyroidism, paroxysmal A-fib, history of toe necrosis s/p left foot toe amputation with recent hospital admission from 05/16 - 05/31 with sepsis suspected due to a necrotic second left toe in the setting of a chronic left foot ulcer with history of diabetes A1c around 8.8 on last check at that time. Patient had also had a history of ESBL UTI and recurrent UTIs however none noted on admission at that time. She is on Xarelto for her A-fib. She was discharged with an prescription for outpatient PT, PT/OT had recommended rehab placement however this was denied and patient was discharged with a prescription for outpatient PT. She had a TTE during her admission which was negative for valvular vegetations, surveillance cultures were negative, and she was recommended to have repeat blood cultures 1 week after discharge on 06/08. She was to follow-up with Dr. Cervantes's office as an outpatient 06/10 for suture removal following amputation of necrotic second toe with underlying osteomyelitis but clear margins. She was seen by her PCP 06/17, repeat blood cultures were ordered 06/18/2023; unfortunately anaerobic bottle at each site was positive for Staph aureus pending sensitivities. She was referred to the ER for further evaluation and management. On admission she does have a leukocytosis of 14.5, is on prednisone 5 mg in the morning, last WBC was normal and Slee/4 at 10.7. She has a neutrophilic predominance with no immature granulocyte expansion, NLR of 7.5. Prior Abx Course: Was initially on cefepime 05/16, meropenem 05/17 - 05/20, and daptomycin 05/17, 05/20, 05/21. Cefazolin was started 05/19, held 05/20, and received a dose 05/21 and then subsequently received a 2-week course of IV antibiotics. Extended IV antibiotic course was not indicated/recommended based on negative follow-up cultures, clean margins, and surgical source control. presents to the ER 06/21/23 with fatigue, weakness, and general unwellness. No respiratory symptoms. 2/4 bottles (2/2 cultures) positive as outpatient for MSSA, patient was referred to the ER for further care. On exam her L first digit has some medial erythema and increased warmth compared to the other digits and right side, although no pain and no active discharge is noted. CT for evaluation of osteo is pending. She is unable to obtain an MRI due to both bladder with stimulator, knee replacement, and rods/pins which she has been told are NOT MRi compatible. Additionally patient has reported some discomfort at a sacral wound in her lower back. Photo of this is included in H&P PE, on exam she has a sacral decubitus ulcer with a scant amount of purulent drainage of unclear depth. CT has been extended to include the pelvis to evaluate for sacral osteo given recurrent MSSA bacteremia. W/ positive blood cultures which matches are consistent with her prior surgical and blood cultures, and which are MSSA agree with continuing cefazolin at this time. In which are MSSA agree with continuing cefazolin at this time. If patient clinically worsens if she clinically worsens/deteriorates, then can expand to include expanded gram-negative with ESBL coverage at that time however this is not indicated at time of admission. Patient does have a systolic murmur on exam, this was also noted on prior admission 05/16/2023 and echo during that admission was with no vegetation and mild MR. Pt meets sepsis criteria, +tachy/leukocytosis/source --> 30cc/kg fluid completion ordered with additional 2L nss to meet ~2500cc goal. BC pending. Abx ordered. Given recurrent blood cultures and with repeat 2/2 positive blood cultures reasonable to repeat limited TTE to reevaluate for vegetation; if blood cultures continue to be positive then would require follow-up SELAM for definitive exclusion. Agree with assessment and management above PG Care Time/CCT Total # of Minutes Spent Total Time Spent with Patient: Total time spent is greater than 50% in coordination of care (as documented) at patient's floor/unit and/or counseling patient: Coding [place] [address] INT INP/OBS CARE 3/75MIN Patient Type Established History Comprehensive Exam Comprehensive Medical Decision Making High Complexity Diagnoses MSSA bacteremia R78.81; B95.61 Infection of left foot L08.9 Sacral ulcer L98.429 Diabetes mellitus, type 2 E11.9 Sepsis A41.9 Paroxysmal atrial fibrillation I48.0 CAD (coronary artery disease) I25.10 Dyslipidemia E78.5 Hypothyroidism E03.9 Depression F32.9 Hypertension I10 Psoriatic arthritis L40.50
[2023-06-21 13:27] LABS: Alanine Aminotransferase 27 U/L (7-52); Albumin Globulin Ratio 0.9 (0.9-2); Alkaline Phosphatase 116 U/L (34-104); Aspartate Aminotransferase 19 U/L (13-39); BUN Creatinine Ratio 21.4 (10-20); Blood Urea Nitrogen 27 mg/dl (6-23); Est GFR (African American) 46.9 ml/min; Est GFR (Non-African American) 40.5 ml/min; Globulin 4.2 gm/dl (2.5-4.0); Glucose 203 mg/dl (70-99(Fasting))
[2023-06-21] MEDS: ceFAZolin 2000MG 2,000 MG/15 ML SYR IV STA (14:28)
[2023-06-21] MEDS: SODIUM CHLORIDE 0.9% 500 ML IV ONE (14:29)
--- NOTE | 2023-06-21 14:45 | CT Scan Report ---
CT OF THE LEFT FOOT WITHOUT CONTRAST CLINICAL HISTORY: Possible osteomyelitis. COMPARISON STUDY: Left foot radiographs October 07, 2022. CT of the left foot May 16, 2023. TECHNIQUE: Axial images of the left foot were obtained without IV contrast. Sagittal and coronal tez nstructions were viewed. Automated exposure control was utilized for the study. A dose lowering tech nique was utilized adhering to the principles of ALARA. FINDINGS: Distal left fibular internal fixation is partially imaged. No acute fracture within the lef t foot is identified. Old fractures of the distal left fifth metatarsal and the left fifth proximal p halanx are noted. Interval amputation of the left second toe since CT of May 16, 2023. No areas of bony erosion are identified to suggest acute osteomyelitis. Wound along the plantar medial aspect of the left first MTP joint is noted. This was shown on prior CT. Subcutaneous soft tissue swelling/i nduration is noted. There is no soft tissue gas. There is a possible small 9 mm fluid collection, mayte p to the wound, overlying the lateral sesamoid of the left first toe. This fluid collection was not s hown on prior CT. No additional fluid collections are present. IMPRESSION: 1. Redemonstration of a wound along the plantar medial aspect of the left first MTP joint. Persistent subcutaneous induration/stranding favors cellulitis/phlegmon. This was shown on prior CT. Small asso ciated 9 mm fluid collection, deep to the wound may reflect a small abscess. No additional fluid gabi ections. No soft tissue gas. 2. No evidence for acute osteomyelitis within the left foot. 3. Interval left second digit amputation. ACT 112: Negative or not required by law. Electronically signed by: Gurdeep Fuller M.D. 06/21/2023 2:43 PM
--- NOTE | 2023-06-21 15:43 | CT Scan Report ---
CT SCAN OF THE PELVIS WITHOUT IV CONTRAST CLINICAL HISTORY: Sacral infection. COMPARISON STUDY: Pelvic CT dated 03/01/2022. TECHNIQUE: CT scan of the pelvis is performed from the pelvic inlet to the proximal femora. Images ar e reviewed in the axial, sagittal, and coronal planes. IV contrast was not administered for this exam ination. A dose lowering technique was utilized adhering to the principles of ALARA. FINDINGS: The skeletal structures are osteopenic. No acute fracture is seen involving the hips or bony pelvis. No lytic or blastic lesion is seen. There is no evidence of avascular necrosis of the proximal femora . Mild arthritic change is noted in the hips. Degenerative sclerosis is seen in the sacroiliac joints . A small decubitus ulceration is suggested overlying the sacrococcygeal junction. Hyperdense materia l at the dermal surface is likely treatment-related. There is mild surrounding soft tissue infiltrati on. No fluid collection is seen to suggest abscess. There is no erosive or destructive bony change in the underlying sacrum to suggest osteomyelitis. A single lead sacral stimulator device is present in the right supragluteal soft tissues. Imaged portions of the lead appear intact. There is mild genera lized atrophy of the regional musculature. No perineal soft tissue gas is seen. The bladder is distended but otherwise normal as imaged. There are calcified uterine fibroids. No adn exal lesion is seen. No intraperitoneal free air or abdominal ascites is identified in the pelvis. Th ere is advanced diverticulosis of the imaged colon without CT evidence of acute diverticulitis. Image d portions of the bowel show no evidence of obstruction. A normal appendix is seen in the right lower quadrant. There is no pelvic sidewall or inguinal lymphadenopathy. Advanced atherosclerotic calcific ation is noted in the iliac vessels. IMPRESSION: 1. No acute bony abnormality is seen in the pelvis. 2. There is evidence of a small sacral decubitus ulceration as above. No fluid collection is seen to suggest abscess. 3. Bladder distention. 4. Advanced colonic diverticulosis without CT evidence of acute diverticulitis. 5. Additional findings as above. ACT 112: Negative or not required by law. Dictated: 06/21/2023 2:50 PM Transcribed: 06/21/2023 3:25 PM Neville [phone] MARIA LUZ_Katie Electronically signed by: Yan Ruiz M.D. 06/21/2023 3:41 PM
[2023-06-21] MEDS: LACTATED RINGER'S 2,000 ML IV ONE (16:10)
--- NOTE | 2023-06-21 16:40 | XCELERA ---
[id number] \\[id number]
[2023-06-21] MEDS ORDERED: GLUCAGON FOR INJ 1 MG VIAL SQ PRN (16:54)
[2023-06-21] MEDS ORDERED: DEXTROSE 50% 50 ML SYRINGE IV PRN (16:54)
[2023-06-21] MEDS ORDERED: GLUCOSE 10 TAB/TUBE PO PRN (16:54)
[2023-06-21] MEDS ORDERED: DICLOFENAC SOD 1% GEL 100 GM TUBE EXT PRN (16:54)
[2023-06-21] MEDS ORDERED: CARBOHYDRATES FOR HYPOGLYCEMIA PO PRN (16:54)
[2023-06-21] MEDS ORDERED: GLUCOSE 40% GEL 15 GM TUBE PO PRN (16:54)
[2023-06-21] MEDS: RIVAROXABAN 15 MG TAB PO SCH (18:22)
[2023-06-21] MEDS: INSULIN ASPART PER UNIT CHARGE SC SCH (18:25)
[2023-06-21] MEDS ORDERED: NON-FORMULARY MEDICATION (Potassium 99 mg Tablet) PO SCH (21:00)
[2023-06-21 21:11] LABS: Appearance Urine Cloudy (Clear); Bacteria Urine Automated 1+ (Negative); Bilirubin Urine Negative (Negative); Blood Urine 2+ (Negative); Color Urine Yellow; Epithelial Cell Urine Auto >30 /lpf (0-5); Glucose Urine UA Negative (Negative); Ketones Urine Negative (Negative); Leukocyte Esterase Urine 3+ (Negative); Nitrite Urine Positive (Negative); Protein Urine Trace (Negative); RBC Urine Automated 0-4 /hpf (0-4); Specific Gravity Urine 1.012 (1.000-1.030); Urobilinogen Urine Negative (Negative); WBC Urine Automated >30 /hpf (0-5); pH Urine 5.5 (4.5-7.5)
[2023-06-21] MEDS: FAMOTIDINE 40 MG TABLET PO SCH (21:17)
[2023-06-21] MEDS: METHENAMINE HIPPURATE 1 GM TAB PO SCH (21:17)
[2023-06-21] MEDS: GABAPENTIN 400 MG CAP PO SCH (21:18)
[2023-06-21] MEDS: ATORVASTATIN 40 MG TAB PO SCH (21:18)
[2023-06-21] MEDS: METOPROLOL SUCC 50MG EXT REL TAB PO SCH (21:18)
[2023-06-21] MEDS: ceFAZolin 2000MG 2,000 MG/15 ML SYR IV SCH (21:18)
[2023-06-21] MEDS: LANTUS PER UNIT CHARGE SQ SCH (21:19)
[2023-06-21] MEDS: ARTIFICIAL TEARS OP SCH (22:05)
[2023-06-22] MEDS: LEVOTHYROXINE SODIUM 125 MCG TABLET PO SCH (05:33)
[2023-06-22 06:19] LABS: Basophils # (auto) 0.04 K/uL (0.00-0.20); Basophils % (auto) 0.4 %; Eosinophils # (auto) 0.17 K/uL (0.00-0.50); Eosinophils % (auto) 1.6 %; Hematocrit (blood only) 28.7 % (37.0-47.0); Hemoglobin 9.2 g/dl (12.0-16.0); Immature Granulocytes # (auto) 0.12 K/uL (0.01-0.20); Immature Granulocytes % (auto) 1.1 %; Lymphocytes # (auto) 2.53 K/uL (1.20-3.40); Lymphocytes % (auto) 24.2 %; Mean Corpuscular Hemoglobin 31.2 pg (25.0-34.0); Mean Corpuscular Hgb Conc 32.1 g/dL (32.0-36.0); Mean Corpuscular Volume 97.3 fL (80.0-100.0); Mean Platelet Volume 12.1 fL (9.4-12.4); Monocytes # (auto) 1.36 K/uL (0.11-0.59); Neutrophils # (auto) 6.22 K/uL (1.40-6.50); Neutrophils % (auto) 59.7 %; Platelet Count 188 K/uL (130-400); RDW Coefficient of Variation 15.1 % (11.5-14.5); RDW Standard Deviation 53.2 fL (36.4-46.3); Red Blood Count 2.95 M/uL (4.20-5.40); White Blood Count 10.44 K/ul (4.8-10.8)
[2023-06-22 06:21] LABS: BUN Creatinine Ratio 17.9 (10-20); C Reactive Protein 11.91 mg/dl (0-0.5); Calcium 8.8 mg/dl (8.6-10.3); Creatinine Clr Calc Pharmacy 33.9 ml/min; Est GFR (African American) 41.3 ml/min; Est GFR (Non-African American) 35.6 ml/min; Potassium 3.6 mmol/L (3.5-5.1)
[2023-06-22] MEDS: AMIODARONE 200 MG TAB PO SCH (08:30)
[2023-06-22] MEDS: DULoxetine HCL 30 MG CAP PO SCH (08:30)
[2023-06-22] MEDS: FERROUS SULFATE 325 MG TAB PO SCH (08:30)
[2023-06-22] MEDS: allopurinoL 100 MG TAB PO SCH (08:30)
[2023-06-22] MEDS: predniSONE 5 MG TAB PO SCH (08:31)
[2023-06-22] MEDS: VIBEGRON 75 MG TAB PO SCH (08:31)
[2023-06-22] MEDS: TRIAMTERENE/HCTZ 37.5/25MG TAB PO SCH (08:31)
[2023-06-22] MEDS: PANTOprazole 40 MG TAB PO SCH (08:31)
--- NOTE | 2023-06-22 10:37 | Infectious Disease Consult ---
Date of Consultation June 22, 2023 Assessment & Plan (1) MSSA bacteremia: (2) Cellulitis and abscess of left leg: (3) Status post amputation of toe of left foot: (4) Sacral wound: (5) Lower back pain: (6) Pressure ulcer of coccygeal region, stage 3: (7) Diabetes mellitus, type 2: Plan Nadia Andrews is a 78-year-old woman with history of T2DM, history of diabetic foot infection, Charcot foot, CAD s/p CABG x3, psoriatic arthritis (on chronic prednisone), HTN, paroxysmal A-fib (on Xarelto), HTN, GERD, gout, dyslipidemia, hypothyroidism, and osteoporosis, hardware in the R foot, L knee, and L-spine (bladder stimulator), neurogenic bladder (self-caths and with bladder stimula tor), recent hospitalization 05/16 to 06/02/23 (necrotic 2nd toe L foot wound s/p amputation on 05/19/23 and MSSA bacteremia 05/16/23 s/p 14d cefazolin), who had repeat BCx done with her PCP on 06/17 which returned positive for MSSA and developed dizziness and chills, prompting presentation to [facility] ED on 06/21/23. Found to have LLE SSTI with phlegmon and small abscess. ID is consulted for recurrent MSSA bacteremia and LLE SSTI. Patient with a recurrence of MSSA bacteremia a few weeks after completing her recent 14d course of cefazolin for MSSA bacteremia and necrotic L toe that was amputated. While a new infection is possible, this is concerning for a metastatic foci of infection and/or endovascular source, or possibly that her prior infection was not source-controlled (such as if there was indeed osteomyelitis). Sources include LLE SSTI and sacral wound which is new. She has lower back pain and pain in her bilateral knees. She reports hardware in the R foot, L knee, and L-spine (bladder stimulator). LLE with erythema and warmth c/w cellulitis/SSTI. CT L foot without evidence of acute osteomyelitis, but shows wound with subcutaneous induration along plantar medial L 1st MTP c/f cellulitis/phlegmon, small 9 mm fluid collection c/f abscess. She also. Appreciate podiatry evaluation of LLE infection. Recommend imaging of L-spine given lower back pain and presence of hardware (bladder stimulator). Would continue to monitor closely for s/sx of metastatic spread of infection (joint pain, back pain) with low threshold to image/evaluate. Close attention to L knee and R foot which have hardware. 06/20 TTE with no valvular vegetation identified. Given that this is a recurrence of bacteremia, would have a low threshold for SELAM if remains bacteremic but can hold off for now pending other evaluation and clinical course (e.g., if osteomyelitis/hardware-associated infection identified, will be receiving 6+ weeks of abx regardless). Would repeat BCx daily until clear x48. Would continue cefazolin for optimal treatment of MSSA. Final abx selection and duration pending evaluation and clinical course. ID Problem List: 1.MSSA bacteremia, recurrent. BCx + 05/16/23 and now again + on 06/18/23 2.LLE SSTI with phlegmon and abscess 3.Sacral wound 4.Lower back pain 5.History of left diabetic foot infection - toe OM and SSTI s/p 2nd toe amputation and debridement 05/19 Cx+ MSSA and Finegoldia magna 6.Type 2 diabetes mellitus Recommendations: - Continue cefazolin 2g IV q8h - Repeat BCx daily until clear x48h. Repeat BCx ordered for 06/21 - Recommend imaging of L-spine given lower back pain and presence of lumbar spinal hardware - Appreciate podiatry evaluation of LLE infection - Low threshold for SELAM given recurrence of bacteremia but can hold off for now while evaluating for potential osteomyelitis/hardware-associated infection - Would continue to monitor closely for s/sx of metastatic spread of infection (joint pain, back pain) with low threshold to image/evaluate. Close attention to L knee and R foot which have hardware. ID will continue to follow, but does not monitor the chart or round over the weekend; covering physician can be contacted at [phone] ([facility] call center) for telephonic consultation if needed. Dr. Maryan Allison will resume care of the ID service on Sunday. Miri Hurd MD, MHS Infectious Diseases [facility] Connect ID Connect direct line: [phone] Consultation Information Consultation was provided via telemedicine using two-way real-time interactive telecommunication between the patient and the telemedicine provider. For the duration of the visit, the provider was performing the assessment from a different facility than the patient. This includesuse of bluetooth stethoscope forauscultationperformed by the telepresenter that the telemedicine provider can hear if described in the physical exam. Producer Assistant contact information: Please call ID Connect Call Center . (Phone Number For Physician Use Only) After establishing a telemedicine visit, patient was: Patient was verified with two unique identifiers, Patient/authorized rep acknowledged consent and understanding and Gave permission to continue telehealth session Time Spent with Patient: Initial => 75 min History of Present Illness Reason for Consultation: MSSA bacteremia Attending Physician: Javier Meier MD History of Present Illness Nadia Andrews is a 78-year-old woman with history of T2DM, history of diabetic foot infection, Charcot foot, CAD s/p CABG x3, psoriatic arthritis (on chronic prednisone), HTN, paroxysmal A-fib (on Xarelto), HTN, GERD, gout, dyslipidemia, hypothyroidism, and osteoporosis, hardware in the R foot, L knee, and L-spine (bladder stimulator), neurogenic bladder (self-caths and with bladder stimulator), recent hospitalization 05/16 to 06/02/23 (necrotic 2nd toe L foot wound s/p amputation on 05/19/23 and MSSA bacteremia 05/16/23 s/p 14d cefazolin), who had repeat BCx done with her PCP on 06/17 which returned positive for MSSA and developed dizziness and chills, prompting presentation to [facility] ED on 06/21/23. ID is consulted for recurrent MSSA bacteremia. She was recently hospitalized 05/16 to 06/02/23 at [facility] for necrotic 2nd toe L foot wound s/p amputation on 05/19/23 and MSSA bacteremia 05/16/23 s/p 14d cefazolin. Per ID consult notes by Dr. Emmy Rocah, she initially presented on 05/16 with not feeling well x few days with weakness, chills, left foot discharge. She was seen by ortho and underwent bedside debridement on 05/18, which showed significant necrotic tissue. S/p OR 05/19 and underwent left second toe amputation and left sub-met 1 diabetic foot ulcer debridement (per op note, left second toe removed at first MTP joint and sent to path, left subMT 1 ulcer was debrided down to subcutaneous tissue). TTE negative for vegetations. OR path report notes acute osteomyelitis of the amputated toe. I spoke to Dr. Cervantes regarding the path report and he feels like all bony infection was removed and she has clean margins. In this case, we can treat for bacteremia and skin/soft tissue infection. Since likely source of MSSA was removed, BCx negative within 2-4 days, no indwelling devices, negative TTE, and no evidence of metastatic sources of MSSA, we can treat for a duration of 2 weeks. I would obtain a follow up surveillance culture about 1 week after discontinuation of antibiotics. The patient reports that initially post-operatively she was doing well, and that her L toe amputation site has healed well. She had been feeling really good at baseline until the last few days where she felt more lightheaded, having brain fog, and was having intermittent chills. No overt fevers or sweats. She notes that she has had fevers and sweats. She was seen by her PCP on 06/17 and was overall felt to be doing well post- hospitalization. Surveillance BCx were ordered which returned + for MSSA and thus she was recommended to present to [facility] on 06/20. In the ED, afebrile, WBC 14.5. CT L foot without evidence of acute osteomyelitis, but shows wound with subcutaneous induration along plantar medial L 1st MTP c/f cellulitis/phlegmon, small 9 mm fluid collection c/f abscess. At the time of evaluation, she reports aching in her bilateral knees. She also has a small sacral wound. She reports hardware in the R foot, L knee, and L-spine (bladder stimulator). Allergies Allergy/AdvReac Type Severity Reaction Status Date / Time sulfamethoxazole Allergy Intermediate Hives Verified 06/18/23 14:38 [From Bactrim] tetanus toxoid, adsorbed Allergy Intermediate LOCALIZED Verified 06/18/23 14:38 REACTION (arm swelling), MADE HER FEEL SICK trimethoprim [From Bactrim] Allergy Intermediate Hives Verified 06/18/23 14:38 amoxicillin AdvReac Intermediate "GOT Verified 06/18/23 14:38 C-DIFF" dalbavancin [From Dalvance] AdvReac Intermediate Vomiting Verified 03/25/24 14: 38 minocycline AdvReac Intermediate HEADACHES Verified 06/18/23 14:38 tetracycline AdvReac Intermediate HEADACHES Verified 06/18/23 14:38 Home Medications Medication Instructions Recorded Confirmed Type gabapentin 400 mg capsule 400 mg PO TID 02/19/18 06/21/23 History multivitamin 1 tab PO QAM 02/19/18 06/21/23 History potassium 99 mg tablet 1 tab PO QPM 02/19/18 06/21/23 History cyanocobalamin (B12)-cobamamide 1,000 mcg sublingual QAM 03/12/18 06/21/23 History 5,000 mcg-100 mcg sublingual tablet (B-12 Plus) nitroglycerin 0.4 mg sublingual 0.4 mg sublingual Q5M PRN Chest 03/29/20 06/21/23 Rx tablet (Nitrostat) Pain #25 tabs calcium carbonate 500 mg-vitamin 1 tab PO BID 06/14/20 06/21/23 History D3 5 mcg (200 unit) tablet (Calcium 500 + D) conjugated estrogens 0.625 mg/gram 0.625 mg vaginal 2XWK 03/07/21 06/21/23 History vaginal cream (Premarin) ferrous sulfate 325 mg (65 mg 325 mg PO Q OTHER DAY 05/16/21 06/21/23 History iron) tablet (iron) neomycin-bacitracn Zn-polymyxn 3.5 1 applic topical DIRECTED PRN 10/18/21 06/21/23 History mg-400 unit-5,000 unit top oint pkt skin irritation ascorbic acid (vitamin C) 500 mg 500 mg PO .AFTERNOON 05/23/22 06/21/23 History tablet (Vitamin C) prednisone 5 mg tablet 5 mg PO QAM 05/23/22 06/21/23 History rivaroxaban 15 mg tablet (Xarelto) 15 mg PO QAM 05/23/22 06/21/23 History metformin 500 mg tablet 500 mg PO QPM #90 tabs 07/19/22 06/21/23 Rx atorvastatin 80 mg tablet 80 mg PO HS #90 tabs 08/16/22 06/21/23 Rx blood sugar diagnostic (OneTouch #100 ea 11/10/22 06/18/23 Rx Verio test strips) lancets 30 gauge (OneTouch Delga #100 ea 11/10/22 06/18/23 Rx Plus Lancet) blood-glucose meter (OneTouch #1 ea 12/26/22 06/18/23 Rx Verio Flex Meter) pen needle, diabetic 32 gauge x #100 ea 12/28/22 06/18/23 Rx 5/32" (BD Daly 2nd Gen Pen Needle) pen needle, diabetic 32 gauge x #100 ea 12/29/22 06/18/23 Rx 5/32" (BD Daly 2nd Gen Pen Needle) metoprolol succinate 50 mg 50 mg PO BID #180 tabs 01/29/23 06/21/23 Rx tablet,extended release 24 hr dulaglutide 4.5 mg/0.5 mL 4.5 mg (0.5 mL) subcut WEEKLY #2 mL 04/02/23 06/21/23 Rx subcutaneous pen injector methenamine hippurate 1 gram tablet 1 g PO BID #180 tabs 04/12/23 06/21/23 Rx allopurinol 100 mg tablet 100 mg PO QAM 05/16/23 06/21/23 History amiodarone 200 mg tablet 200 mg PO QAM 05/16/23 06/21/23 History cyclosporine 0.05 % eye drops in a 1 drp OPB Q12H 05/16/23 06/21/23 History dropperette (Restasis) diclofenac sodium 1 % topical gel 2 g topical QID PRN Pain 05/16/23 06/21/23 History duloxetine 30 mg capsule,delayed 30 mg PO QAM 05/16/23 06/21/23 History release esomeprazole magnesium 40 mg 40 mg PO QAM 05/16/23 06/21/23 History capsule,delayed release famotidine 40 mg tablet 40 mg PO QPM 05/16/23 06/21/23 History triamterene 37.5 1 tab PO QAM 05/16/23 06/21/23 History mg-hydrochlorothiazide 25 mg tablet valacyclovir 500 mg tablet 500 mg PO QPM 05/16/23 06/21/23 History insulin glargine 100 unit/mL (3 45 unit (0.45 mL) subcut 06/02/23 06/21/23 Rx mL) subcutaneous pen (Lantus DIRECTED #15 mL Solostar U-100 Insulin) levothyroxine 125 mcg tablet 125 mcg PO QAM 06/21/23 06/21/23 History mirabegron 50 mg tablet,extended 50 mg PO QAM 06/21/23 06/21/23 History release 24 hr (Myrbetriq) Patient History Medical History (Updated 06/22/23 @ 11:03 by Miri Hurd MD) Sepsis Toe necrosis Encounter for colorectal cancer screening Chest pain RE-OCCURING ON OCC/ MOST RECENT LAST WEEK / USED NITRO FOR DENIES CHANGE IN BASELINE OCCURENCE DETAILS PT HAS DISCUSSED PAST OCCURENCES WITH DR OROPEZA History of colon polyps -12/01 were normal and 1 something abdnormal/reason for upcoming colonoscopy Incomplete bladder emptying self cath tid Overactive bladder Wheelchair dependence pt states she can stand and pivot on her own On antibiotic therapy preventative for recurring wound infection to rt foot and recurring UTIs - abx tx through picc line completed 3 - 4 weeks ago current : wound on foot doing really well per pt/no current s/s uti History of ESBL E. coli infection Rectal ulcer hx Arthritis Charcot's joint of foot in type 2 diabetes mellitus Sensorineural hearing loss of both ears Hemorrhoids, internal, with bleeding hx Stress incontinence in female Paroxysmal atrial fibrillation dx 2015 - on xarelto - follows with Dr. 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 03/12/2018. DONE AT [facility]. BLOCK WITH LMA. NO ISSUES. History of dilatation and curettage History of bilateral tubal ligation Charcot's joint of foot RIGHT FOOT (4 SURGERIES TOTAL) History of total knee replacement LEFT History of ankle surgery LEFT History of surgery BLADDER STIMULATOR IMPLANTED IN BACK- not sure if currently working History of bladder repair surgery R/T URINARY LEAKAGE History of colonoscopy History of tooth extraction History of tonsillectomy History of adenoidectomy History of cataract surgery RIGHT/LEFT History of coronary artery bypass graft CABG X 3 (2014) History of cardiac cath 2015= NO STENTS Family History Mother Family hx of colon cancer Cardiac disorder Colorectal cancer Cancer Hypertension Father Cardiac disorder Lung cancer Hypertension Grandmother (Maternal) Stroke Other No family history of adverse response to anesthesia Denies family history of Ovarian cancer Breast cancer Social History Smoking Status: Never smoker Second Hand Exposure: No; Do You Dip or Chew Tobacco: No; Tobacco Cessation Education Requested by Patient: No Hx Alcohol Use: No Hx Substance Use: No Preferred Language: Cantonese Macanese Communication Ability: Effective Visual Impairment: Limited Hearing Ability: Use of Hearing Aid Managing Partner Required: No Beliefs That Will Affect Care: None marital status: Current Living Situation: Spouse current occupational status: retired Other Information That Helps Us Care for You: No Feels Safe at Home: Yes Safety Concerns: Feels Safe At This Time Diet: diabetic and regular caffeine: No Do you think of yourself as: straight/heterosexual Gender Identity: Female Assistive Devices: Wheelchair Assistive Devices Comment: boots and foot/leg braces Physical Exam Physical Exam: Exam obtained with aid of in-person telepresenter. General: No acute distress HEENT: Conjunctivae non-injected, sclerae anicteric, MMM, OP clear. CV: RRR Resp: CTAB; no wheezes, rales, or rhonchi. Respirations nonlabored. Abd: Soft, nontender. + Distended. Back: + tender to palpation in L-spine (overlying where pts bladder stimulator is) Ext: Healed scars of L knee, L ankle, and R foot. Sole of R foot with scabbed wound. L foot 2nd toe amputation site appears to be healing well. L ball of foot with dark wound. LLE erythematous and warm starting from below the knee up to above the ankle. Skin: As above. With new sacral wound and area of small brownish drainage. Neuro: Alert & interactive. Grossly non-focal. Psych: Pleasant, appropriate. Results & Data Vital Signs (Past 12 Hours) Vital Signs Temp Pulse Resp BP Pulse Ox O2 Del Method 06/22/23 07:18 37.0 C 79 18 116/54 L 93 Room Air 06/22/23 03:43 37.1 C 81 19 120/56 L 93 Room Air 06/21/23 23:07 37.1 C 84 20 125/58 L 95 Room Air Diagnostic Findings Diagnostics: 06/20 TTE LVEF normal, no WMAs; no valvular vegetation identified. 06/20 CT pelvis 1. No acute bony abnormality is seen in the pelvis. 2. There is evidence of a small sacral decubitus ulceration as above. No fluid collection is seen to suggest abscess. 3. Bladder distention. 4. Advanced colonic diverticulosis without CT evidence of acute diverticulitis. 5. Additional findings as above. 06/20 CT foot 1. Redemonstration of a wound along the plantar medial aspect of the left first MTP joint. Persistent subcutaneous induration/stranding favors cellulitis/phlegmon. This was shown on prior CT. Small associated 9 mm fluid collection, deep to the wound may reflect a small abscess. No additional fluid collections. No soft tissue gas. 2. No evidence for acute osteomyelitis within the left foot. 3. Interval left second digit amputation. Micro Summary: BCx 06/21 BCx x2: pending 06/20 BCx x2: pending 06/17 BCx x2: 2 of 4 MSSA 05/20 BCx: ngtd 05/16 BCx: MSSA in 1/4 bottles 06/20 UCx: p 06/20 UA: WBC >30 RBC 0-4 >30 epis prior 05/19 UCX: C glabrata 05/17 WCX L toe: Finegoldia magna, MSSA 05/17 WCX left foot: MSSA 05/17 WCX R ankle: MSSA 05/16 MRSA screen: negative Antibiotic Summary: cefazolin (05/2006/02/23; 06/20 present)
--- NOTE | 2023-06-22 10:46 | Hospitalist Progress Note ---
Date of Service June 22, 2023 Assessment & Plan (1) MSSA bacteremia: Plan: Patient was asked to return to the hospital as a result of Two separate positive Blood cultures drawn on 06/17 for MSSA She was recently discharged from the hospital where she was treated for sepsis and diabetic foot and completed 2 weeks of antibiotics Recent [place] 05[place]16-06/01: sepsis, diabetic foot, second left toe necrosis requiring amputation on 05/19 On present admission, leukocytosis at 14.52 with a neutrophil predominance CRP elevated at 9.15 Source could be from residual infection from left foot wound vs new sacral ulcer or hardware from her lumbar surgery could be needed's of infection Will obtain CT L-spine 2D echo did not show any evidence of vegetation Continue IV cefazolin Infectious disease on consult (2) Infection of left foot: Plan: Left foot CT revealed no evidence of acute osteomyelitis, but did note 9 mm fluid collection deep to the wound (potential small abscess) Podiatry consulted (3) Sacral ulcer: Plan: Small sacral decubitus ulceration on clinical exam Pelvic CT revealed no fluid collection to suggest an abscess Daily wound care Wound care nurse consulted (4) Diabetes mellitus, type 2: Plan: Last A1c at 8.8% on 05/17/2023; no need to repeat Glucose 203 on admission Hold metformin, dulaglutide Patient is normally on 45 units of Lantus daily Lantus 20 u BID while inpatient SSI; with target BSG range 110-140mg/dL, CF 20, carb ratio 5 T2DM diet BSG ACHS Adjust regimen as needed (5) Sepsis: Plan: WBC + tachycardia ~100bpm on arrival + left foot wound v. sacral source Lactate elevated at 2.3, repeat pending IVF resuscitation w/ NSS 500mL + LR 2000mL Antibiotics (as above) (6) Paroxysmal atrial fibrillation: Plan: On Xarelto at home Currently on hold in case of podiatry surgery (7) CAD (coronary artery disease): (8) Dyslipidemia: (9) Hypothyroidism: (10) Depression: (11) Hypertension: (12) Psoriatic arthritis: Plan Disposition: Continue hospitalization Full code T2DM, AHA diet now; VTE PPx: Continue home Xarelto Admission and Anticipated Discharge Date Admission Date: June 21, 2023 Subjective Patient seen and examined today, says fever and chills have subsided Review of Systems Review of Systems: All systems reviewed are negative, apart from the ones contained in the history. Physical Exam Physical Exam: The patient is awake, alert and oriented 3, well developed and well nourished, normocephalic and atraumatic, lying in bed and in no acute distress. HEENT--PERRL, EOMI, mucous membranes and oropharynx mildly dry Neck--supple. No JVD. No bruits. Thyroid normal, trachea midline, no adenopathy. Heart--normal S1 and S2. No murmurs, rubs or gallops. Lungs--clear bilaterally, no respiratory distress, no accessory muscle use. Abdomen--normal bowel sounds and soft. Extremities--lower extremity wounds, toe amputation. Dermatologic--normal skin turgor, normal color, no abnormal lymph nodes, no rash. Neurologic--cranial nerves II through XII grossly intact. Rheumatologic--normal range of motion. Psychiatric--normal affect. Results & Data Results & Data Vital Signs (Past 12 Hours) Vital Signs Temp Pulse Resp BP Pulse Ox O2 Del Method 06/22/23 07:18 98.6 F 79 18 116/54 L 93 Room Air 06/22/23 03:43 98.8 F 81 19 120/56 L 93 Room Air 06/21/23 23:07 98.8 F 84 20 125/58 L 95 Room Air PG Care Time/CCT Total # of Minutes Spent Total Time Spent with Patient: Total time spent is greater than 50% in coordination of care (as documented) at patient's floor/unit and/or counseling patient: Coding Level of Care Code 62707 SUB INP/OBS CARE 2/35MIN Diagnoses MSSA bacteremia R78.81; B95.61 Infection of left foot L08.9 Sacral ulcer L98.429 Diabetes mellitus, type 2 E11.9 Sepsis A41.9 Paroxysmal atrial fibrillation I48.0 CAD (coronary artery disease) I25.10 Dyslipidemia E78.5 Hypothyroidism E03.9 Depression F32.9 Hypertension I10 Psoriatic arthritis L40.50 Time Spent (min) 35
--- NOTE | 2023-06-22 15:48 | CT Scan Report ---
CT SCAN OF THE LUMBAR SPINE WITHOUT CONTRAST CLINICAL HISTORY: Bacteremia. Back pain. COMPARISON STUDY: Abdominal CT dated 12/30/2021. TECHNIQUE: CT scan of the lumbar spine is performed from the lower thoracic spine to the sacrum. Imag es are reviewed in the axial, sagittal, and coronal planes. IV contrast was not administered for this examination. A dose lowering technique was utilized adhering to the principles of ALARA. CT DOSE: 1089.33 mGy.cm FINDINGS: The skeletal structures are osteopenic. There is no evidence of fracture or malalignment. V ertebral body height and alignment are maintained throughout the lumbar spine. There is straightening of the lumbar lordosis. Anterior and lateral marginal osteophytes are seen throughout. There is mild -to-moderate lumbar dextrocurvature centered at L2-L3. There is no spondylolysis. No lytic or blastic lesion is seen. No erosive/destructive change is identified. The transverse and spinous processes ap pear intact. There is dupnhujh-ut-oyadhb disc space narrowing at all lumbar levels between L2-L3 and L5-S1 with multilevel endplate sclerosis. Posterior disc osteophyte complexes are seen at all lumbar levels. These contributes to at least mild multilevel acquired compromise of the central canal. Facet arthropathy is noted in the lower lumbar region. The visualized sacrum appears intact. A sacral stim ulator lead is in place. There is fatty atrophy of the paraspinous musculature. The partially visuali zed bladder appears distended. There is advanced atherosclerotic calcification of the abdominal aorta , which is normal in caliber. Left-sided nephrolithiasis is partially imaged. No retroperitoneal lymp hadenopathy is seen. IMPRESSION: 1. No acute bony abnormality is seen involving the lumbar spine. 2. Osteopenia with lumbosacral spondylosis and scoliosis as above. ACT 112: Negative or not required by law. Dictated: 06/22/2023 12:27 PM Transcribed: 06/22/2023 1:06 PM Neville [id number] MARIA LUZ_Katie Electronically signed by: Yan Ruiz M.D. 06/22/2023 3:46 PM
[2023-06-23 07:14] LABS: Basophils # (auto) 0.04 K/uL (0.00-0.20); Basophils % (auto) 0.4 %; Eosinophils % (auto) 2.1 %; Hemoglobin 9.4 g/dl (12.0-16.0); Immature Granulocytes # (auto) 0.17 K/uL (0.01-0.20); Immature Granulocytes % (auto) 1.8 %; Lymphocytes # (auto) 2.41 K/uL (1.20-3.40); Lymphocytes % (auto) 25.2 %; Mean Corpuscular Hemoglobin 31.2 pg (25.0-34.0); Mean Corpuscular Hgb Conc 32.4 g/dL (32.0-36.0); Mean Corpuscular Volume 96.3 fL (80.0-100.0); Monocytes # (auto) 1.23 K/uL (0.11-0.59); Monocytes % (auto) 12.9 %; Neutrophils # (auto) 5.52 K/uL (1.40-6.50); Neutrophils % (auto) 57.6 %; Platelet Count 216 K/uL (130-400); RDW Standard Deviation 52.8 fL (36.4-46.3); Red Blood Count 3.01 M/uL (4.20-5.40); White Blood Count 9.57 K/ul (4.8-10.8)
[2023-06-23 07:31] LABS: BUN Creatinine Ratio 18.1 (10-20); C Reactive Protein 8.81 mg/dl (0-0.5); Calcium 8.7 mg/dl (8.6-10.3); Creatinine Clr Calc Pharmacy 31.5 ml/min; Est GFR (African American) 38.3 ml/min; Est GFR (Non-African American) 33.1 ml/min; Potassium 3.5 mmol/L (3.5-5.1)
--- NOTE | 2023-06-23 11:22 | Hospitalist Progress Note ---
Date of Service June 23, 2023 Assessment & Plan (1) MSSA bacteremia: Plan: Patient was asked to return to the hospital as a result of Two separate positive Blood cultures drawn on 06/17 for MSSA She was recently discharged from the hospital where she was treated for sepsis and diabetic foot and completed 2 weeks of antibiotics [place]16[place]01: sepsis, diabetic foot, second left toe necrosis requiring amputation on 05/19 On present admission, leukocytosis at 14.52 with a neutrophil predominance CRP elevated at 9.15 Source could be from residual infection from left foot wound vs new sacral ulcer. I doubt if the leads of her sacral stimulator will be a nidus for infection CT L-spine did not suggest any infection around the bones 2D echo did not show any evidence of vegetation Continue IV cefazolin Infectious disease on consult Repeat cultures pending (2) Infection of left foot: Plan: Left foot CT revealed no evidence of acute osteomyelitis, but did note 9 mm fluid collection deep to the wound (potential small abscess) Podiatry consulted (3) Sacral ulcer: Plan: Small sacral decubitus ulceration on clinical exam Pelvic CT revealed no fluid collection to suggest an abscess Daily wound care Wound care nurse consulted (4) Diabetes mellitus, type 2: Plan: Last A1c at 8.8% on 05/17/2023; no need to repeat Glucose 203 on admission Hold metformin, dulaglutide Patient is normally on 45 units of Lantus daily Lantus 20 u BID while inpatient SSI; with target BSG range 110-140mg/dL, CF 20, carb ratio 5 T2DM diet BSG ACHS Adjust regimen as needed (5) Sepsis: Plan: Now much improved On admission, WBC + tachycardia ~100bpm on arrival + left foot wound v. sacral source Lactate elevated at 2.3, repeat pending IVF resuscitation w/ NSS 500mL + LR 2000mL Antibiotics (as above) (6) Paroxysmal atrial fibrillation: Plan: On Xarelto at home Currently on hold in case of podiatry surgery (7) CAD (coronary artery disease): (8) Dyslipidemia: (9) Hypothyroidism: (10) Depression: (11) Hypertension: (12) Psoriatic arthritis: Plan Disposition: Continue hospitalization Full code T2DM, AHA diet now; VTE PPx: Continue home Xarelto Admission and Anticipated Discharge Date Admission Date: June 21, 2023 Subjective Patient seen and examined today, says fever and chills have subsided, sitting up in the chair, feels clinically much better Review of Systems Review of Systems: All systems reviewed are negative, apart from the ones contained in the history. Physical Exam Physical Exam: The patient is awake, alert and oriented 3, well developed and well nourished, normocephalic and atraumatic, lying in bed and in no acute distress. HEENT--PERRL, EOMI, mucous membranes and oropharynx mildly dry Neck--supple. No JVD. No bruits. Thyroid normal, trachea midline, no adenopathy. Heart--normal S1 and S2. No murmurs, rubs or gallops. Lungs--clear bilaterally, no respiratory distress, no accessory muscle use. Abdomen--normal bowel sounds and soft. Extremities--lower extremity wounds, toe amputation. Dermatologic--normal skin turgor, normal color, no abnormal lymph nodes, no rash. Neurologic--cranial nerves II through XII grossly intact. Rheumatologic--normal range of motion. Psychiatric--normal affect. Results & Data Results & Data Vital Signs (Past 12 Hours) Vital Signs Temp Pulse Resp BP Pulse Ox O2 Del Method 06/23/23 11:06 97.9 F 75 16 108/62 93 Room Air 06/23/23 07:14 98.2 F 75 16 117/73 92 Room Air 06/23/23 02:23 97.9 F 79 20 130/95 93 Room Air PG Care Time/CCT Total # of Minutes Spent Total Time Spent with Patient: Total time spent is greater than 50% in coordination of care (as documented) at patient's floor/unit and/or counseling patient: Coding Level of Care Code 73749 SUB INP/OBS CARE 2/35MIN Diagnoses MSSA bacteremia R78.81; B95.61 Infection of left foot L08.9 Sacral ulcer L98.429 Diabetes mellitus, type 2 E11.9 Sepsis A41.9 Paroxysmal atrial fibrillation I48.0 CAD (coronary artery disease) I25.10 Dyslipidemia E78.5 Hypothyroidism E03.9 Depression F32.9 Hypertension I10 Psoriatic arthritis L40.50 Time Spent (min) 35
[2023-06-24 08:23] LABS: Basophils # (auto) 0.05 K/uL (0.00-0.20); Basophils % (auto) 0.5 %; Eosinophils # (auto) 0.22 K/uL (0.00-0.50); Eosinophils % (auto) 2.3 %; Hemoglobin 9.8 g/dl (12.0-16.0); Immature Granulocytes # (auto) 0.34 K/uL (0.01-0.20); Immature Granulocytes % (auto) 3.5 %; Lymphocytes # (auto) 2.37 K/uL (1.20-3.40); Lymphocytes % (auto) 24.6 %; Mean Corpuscular Hemoglobin 31.4 pg (25.0-34.0); Mean Corpuscular Hgb Conc 32.7 g/dL (32.0-36.0); Mean Corpuscular Volume 96.2 fL (80.0-100.0); Mean Platelet Volume 11.5 fL (9.4-12.4); Monocytes # (auto) 1.23 K/uL (0.11-0.59); Monocytes % (auto) 12.7 %; Neutrophils # (auto) 5.44 K/uL (1.40-6.50); Neutrophils % (auto) 56.4 %; Platelet Count 282 K/uL (130-400); RDW Standard Deviation 52.1 fL (36.4-46.3); Red Blood Count 3.12 M/uL (4.20-5.40); White Blood Count 9.65 K/ul (4.8-10.8)
[2023-06-24 08:40] LABS: BUN Creatinine Ratio 24.2 (10-20); C Reactive Protein 4.17 mg/dl (0-0.5); Calcium 8.7 mg/dl (8.6-10.3); Creatinine Clr Calc Pharmacy 38.8 ml/min; Est GFR (African American) 49.8 ml/min; Potassium 3.5 mmol/L (3.5-5.1)
--- NOTE | 2023-06-24 10:20 | Hospitalist Progress Note ---
Date of Service June 24, 2023 Assessment & Plan (1) MSSA bacteremia: Plan: Patient was asked to return to the hospital as a result of Two separate positive Blood cultures drawn on 06/17 for MSSA She was recently discharged from the hospital where she was treated for sepsis and diabetic foot and completed 2 weeks of antibiotics [place]16[place]01: sepsis, diabetic foot, second left toe necrosis requiring amputation on 05/19 On present admission, leukocytosis at 14.52 with a neutrophil predominance CRP elevated at 9.15 Source could be from residual infection from left foot wound vs new sacral ulcer. I doubt if the leads of her sacral stimulator will be a nidus for infection CT L-spine did not suggest any infection around the bones 2D echo did not show any evidence of vegetation Continue IV cefazolin Infectious disease on consult Repeat cultures pending (2) Infection of left foot: Plan: Left foot CT revealed no evidence of acute osteomyelitis, but did note 9 mm fluid collection deep to the wound (potential small abscess) Podiatry consulted (3) Sacral ulcer: Plan: Small sacral decubitus ulceration on clinical exam, present on admission Pelvic CT revealed no fluid collection to suggest an abscess Daily wound care Wound care nurse consulted (4) Acute UTI: Plan: Urinalysis showed evidence of UTI Urine cultures growing E. coli pansensitive Currently on IV cefazolin for bacteremia Upon discharge we will de-escalate (5) Diabetes mellitus, type 2: Plan: Last A1c at 8.8% on 05/17/2023; no need to repeat Glucose 203 on admission Hold metformin, dulaglutide Patient is normally on 45 units of Lantus daily Lantus 20 u BID while inpatient SSI; with target BSG range 110-140mg/dL, CF 20, carb ratio 5 T2DM diet BSG ACHS Adjust regimen as needed (6) Sepsis: Plan: Now much improved On admission, WBC + tachycardia ~100bpm on arrival + left foot wound v. sacral source Lactate elevated at 2.3, repeat pending IVF resuscitation w/ NSS 500mL + LR 2000mL Antibiotics (as above) (7) Paroxysmal atrial fibrillation: Plan: On Xarelto at home (8) CAD (coronary artery disease): (9) Dyslipidemia: (10) Hypothyroidism: (11) Depression: (12) Hypertension: (13) Psoriatic arthritis: Plan Disposition: Continue hospitalization Full code T2DM, AHA diet now; VTE PPx: Continue home Xarelto Admission and Anticipated Discharge Date Admission Date: June 21, 2023 Subjective Patient seen and examined today, says fever and chills have subsided, sitting up in the chair, feels clinically much better Review of Systems Review of Systems: All systems reviewed are negative, apart from the ones contained in the history. Physical Exam Physical Exam: The patient is awake, alert and oriented 3, well developed and well nourished, normocephalic and atraumatic, lying in bed and in no acute distress. HEENT--PERRL, EOMI, mucous membranes and oropharynx mildly dry Neck--supple. No JVD. No bruits. Thyroid normal, trachea midline, no adenopathy. Heart--normal S1 and S2. No murmurs, rubs or gallops. Lungs--clear bilaterally, no respiratory distress, no accessory muscle use. Abdomen--normal bowel sounds and soft. Extremities--lower extremity wounds, toe amputation. Dermatologic--normal skin turgor, normal color, no abnormal lymph nodes, no rash. Neurologic--cranial nerves II through XII grossly intact. Rheumatologic--normal range of motion. Psychiatric--normal affect. Results & Data Results & Data Vital Signs (Past 12 Hours) Vital Signs Temp Pulse Pulse Resp BP Pulse Ox O2 Del Method 06/24/23 07:56 97.7 F 68 18 132/63 94 Room Air 06/24/23 02:13 97.7 F 69 20 122/62 95 Room Air 06/23/23 23:04 97.9 F 72 20 126/65 93 Room Air 06/23/23 23:03 73 PG Care Time/CCT Total # of Minutes Spent Total Time Spent with Patient: Total time spent is greater than 50% in coordination of care (as documented) at patient's floor/unit and/or counseling patient: Coding Level of Care Code 88823 SUB INP/OBS CARE 2/35MIN Diagnoses MSSA bacteremia R78.81; B95.61 Infection of left foot L08.9 Sacral ulcer L98.429 Acute UTI N39.0 Diabetes mellitus, type 2 E11.9 Sepsis A41.9 Paroxysmal atrial fibrillation I48.0 CAD (coronary artery disease) I25.10 Dyslipidemia E78.5 Hypothyroidism E03.9 Depression F32.9 Hypertension I10 Psoriatic arthritis L40.50 Time Spent (min) 35
[2023-06-25 06:29] LABS: Hematocrit (blood only) 33.6 % (37.0-47.0); Hemoglobin 10.7 g/dl (12.0-16.0); Mean Corpuscular Hgb Conc 31.8 g/dL (32.0-36.0); Mean Corpuscular Volume 97.4 fL (80.0-100.0); Platelet Count 358 K/uL (130-400); RDW Standard Deviation 52.7 fL (36.4-46.3); Red Blood Count 3.45 M/uL (4.20-5.40)
[2023-06-25 07:01] LABS: BUN Creatinine Ratio 23.1 (10-20); Calcium 8.9 mg/dl (8.6-10.3); Creatinine Clr Calc Pharmacy 39.7 ml/min; Est GFR (African American) 51.3 ml/min; Est GFR (Non-African American) 44.3 ml/min; Potassium 3.8 mmol/L (3.5-5.1)
[2023-06-25] MEDS: ACETAMINOPHEN 325 MG TAB PO PRN (09:38)
--- NOTE | 2023-06-25 12:30 | Hospitalist Progress Note ---
Date of Service June 25, 2023 Assessment & Plan (1) MSSA bacteremia: Plan: positive Blood cultures drawn on 06/17 for MSSA. Subsequent blood cultures drawn on June 21 are negative. She remains on Ancef 2 g IV every 8 hours. Infectious disease consultation and recommendations are pending. (2) Infection of left foot: Plan: Left foot CT revealed no evidence of acute osteomyelitis, but did note 9 mm fluid collection deep to the wound (potential small abscess). Podiatry consult pending (3) Sacral ulcer: Plan: Present on admission. Appears to be stage III. Local care. Pelvic CT revealed no fluid collection to suggest an abscess. (4) Acute UTI: Plan: Possibly due to intermittent straight cathing. She is currently on Ancef. E. coli isolated. (5) Diabetes mellitus, type 2: Plan: Last A1c at 8.8% on 05/17/2023. ADA diet. Sliding scale coverage. Basal Lantus therapy. Metformin is temporarily on hold (6) Sepsis: Plan: Present on admission. Now resolved (7) Paroxysmal atrial fibrillation: Plan: Stable. Telemetry. Continue Xarelto. (8) CAD (coronary artery disease): Plan: Stable. Continue current medical (9) Dyslipidemia: Plan: Stable. Continue statin therapy (10) Hypothyroidism: Plan: The stable. Continue thyroid replacement therapy (11) Hypertension: Plan: Stable. Continue current medical management Plan To be determined Admission and Anticipated Discharge Date Admission Date: June 21, 2023 Subjective Alert and oriented. No new problems. Awaiting infectious disease consultation and podiatry consultation she remains on intravenous Ancef 2 g IV every 8 hours. Fortunately the TTE was negative for vegetations. The set of blood cultures obtained on June 21 are negative. Review of Systems 2 Review of Systems: Constitutional-no fever or chills ENT-no blurred vision, no double vision, no epistaxis, no sore throat Respiratory-no cough, no wheezing, no shortness of breath Cardiac-no palpitations, no chest pain, no syncope GI-no nausea, vomiting, diarrhea, melena, hematochezia -no urinary retention, no urinary incontinence, no dysuria, no hematuria Musculoskeletal-no joint pain, no muscle tenderness Skin-no bruising, no rashes, no pruritus Neuro-no isolated weakness, no paresthesia, no weakness Psych-no depression, no anxiety Physical Exam 2 Physical Exam: General-alert and oriented x3, no fever, no chills HEENT-head atraumatic and normocephalic, pupils equal and reactive to light, extraocular muscles intact Neck-no lymphadenopathy or thyromegaly, trachea midline Chest-clear to auscultation. No rales, wheezing or rhonchi Cardiac-regular rate and rhythm, normal S1 and S2, no murmurs Abdomen-normal bowel sounds, nontender, no hepatosplenomegaly Extremities-no cyanosis, clubbing, or edema Neuro-cranial nerves II through XII intact, motor and sensory function within normal limits, strength symmetrical, no focal deficits Psych-normal affect, normal mood Results & Data Results & Data Vital Signs (Past 12 Hours) Vital Signs Temp Pulse Resp BP Pulse Ox O2 Del Method 06/25/23 08:00 36.9 C 78 18 143/72 H 96 Room Air 06/25/23 02:45 36.6 C 72 18 132/71 95 Room Air Laboratory Results 06/25/23 06:09 06/25/23 06:09 PG Care Time/CCT Total # of Minutes Spent Total Time Spent with Patient: Total time spent is greater than 50% in coordination of care (as documented) at patient's floor/unit and/or counseling patient: Coding Level of Care Code 13705 SUB INP/OBS CARE 3/50MIN Diagnoses MSSA bacteremia R78.81; B95.61 Infection of left foot L08.9 Sacral ulcer L98.429 Acute UTI N39.0 Diabetes mellitus, type 2 E11.9 Sepsis A41.9 Paroxysmal atrial fibrillation I48.0 CAD (coronary artery disease) I25.10 Dyslipidemia E78.5 Hypothyroidism E03.9 Hypertension I10
--- NOTE | 2023-06-25 18:45 | Infectious Disease Progress Nt ---
Date of Service June 25, 2023 Assessment & Plan (1) MSSA bacteremia: (2) Cellulitis and abscess of left leg: (3) Status post amputation of toe of left foot: (4) Sacral wound: (5) Lower back pain: (6) Pressure ulcer of coccygeal region, stage 3: (7) Diabetes mellitus, type 2: Plan Nadia Andrews is a 78-year-old woman with history of T2DM, history of diabetic foot infection, Charcot foot, CAD s/p CABG x3, psoriatic arthritis (on chronic prednisone), HTN, paroxysmal A-fib (on Xarelto), HTN, GERD, gout, dyslipidemia, hypothyroidism, and osteoporosis, hardware in the R foot, L knee, and L-spine (bladder stimulator), neurogenic bladder (self-caths and with bladder stimula tor), recent hospitalization 05/16 to 06/02/23 (necrotic 2nd toe L foot wound s/p amputation on 05/19/23 and MSSA bacteremia 05/16/23 s/p 14d cefazolin), who had repeat BCx done with her PCP on 06/17 which returned positive for MSSA and developed dizziness and chills, prompting presentation to [facility] ED on 06/21/23. Found to have LLE SSTI with phlegmon and small abscess. ID is consulted for recurrent MSSA bacteremia and LLE SSTI. Patient with a recurrence of MSSA bacteremia a few weeks after completing her recent 14d course of cefazolin for MSSA bacteremia and necrotic L toe that was amputated. While a new infection is possible, this is concerning for a metastatic foci of infection and/or endovascular source, or possibly that her prior infection was not source-controlled (such as if there was indeed osteomyelitis). Sources include LLE SSTI and sacral wound which is new. She has lower back pain and pain in her bilateral knees. She reports hardware in the R foot, L knee, and L-spine (bladder stimulator). LLE with erythema and warmth c/w cellulitis/SSTI. CT L foot without evidence of acute osteomyelitis, but shows wound with subcutaneous induration along plantar medial L 1st MTP c/f cellulitis/phlegmon, small 9 mm fluid collection c/f abscess. She also. Appreciate podiatry evaluation of LLE infection. Recommend imaging of L-spine given lower back pain and presence of hardware (bladder stimulator). Would continue to monitor closely for s/sx of metastatic spread of infection (joint pain, back pain) with low threshold to image/evaluate. Close attention to L knee and R foot which have hardware. 06/20 TTE with no valvular vegetation identified. Given that this is a recurrence of bacteremia, would have a low threshold for SELAM if remains bacteremic but can hold off for now pending other evaluation and clinical course (e.g., if osteomyelitis/hardware-associated infection identified, will be receiving 6+ weeks of abx regardless). Would repeat BCx daily until clear x48 06/[address] is negative for infection. Would continue cefazolin for optimal treatment of MSSA. Final abx selection and duration pending evaluation and clinical course. ID Problem List: 1.MSSA bacteremia, recurrent. BCx + 05/16/23 and now again + on 06/18/23 2.LLE SSTI with phlegmon and abscess 3.Sacral wound 4.Lower back pain 5.History of left diabetic foot infection - toe OM and SSTI s/p 2nd toe amputation and debridement 05/19 Cx+ MSSA and Finegoldia magna 6.Type 2 diabetes mellitus Recommendations: - Continue cefazolin 2g IV q8h - BCx ordered for 06/21 NGTD, I will order a set for tomorrow am - Recommend imaging of L-spine given lower back pain and presence of lumbar spinal hardware - Appreciate podiatry evaluation of LLE infection - Low threshold for SELAM given recurrence of bacteremia but can hold off for now while evaluating for potential osteomyelitis/hardware-associated infection - Would continue to monitor closely for s/sx of metastatic spread of infection (joint pain, back pain) with low threshold to image/evaluate. Close attention to L knee and R foot which have hardware. Anticipate she will need at least 6 weeks Awaiting clearance Following anca Allison MD Infectious Diseases Admission and Anticipated Discharge Date Admission Date: June 21, 2023 Subjective This patient recommendation is based on a telemedicine consult request which was completed asynchronously through chart review and information provided by the primary physician. The patient was not seen or examined today. The evaluation is consultative in nature and all patient care and treatment decisions can either be accepted or rejected by the patient's primary hospital-based treating physician using their own independent medical judgment for their patient. Time Spent Reviewing Chart: 21 - 30 minutes Results & Data Vital Signs (Past 12 Hours) Vital Signs Temp Pulse Pulse Resp BP Pulse Ox O2 Del Method 06/25/23 16:00 74 06/25/23 15:38 36.9 C 70 16 144/86 H 95 Room Air 06/25/23 13:24 79 06/25/23 11:30 36.5 C 88 20 154/78 H 97 Room Air 06/25/23 08:00 36.9 C 78 18 143/72 H 96 Room Air Laboratory Results Short CBC 06/25/23 Range/Units 06:09 WBC 11.80 H (4.8-10.8) K/ul Hgb 10.7 L (12.0-16.0) g/dl Hct 33.6 L (37.0-47.0) % Plt Count 358 (130-400) K/uL BMP 06/25/23 06:09 Sodium 138 Potassium 3.8 Chloride 103 Carbon Dioxide 24 BUN 27 H Creatinine 1.17 Glucose 123 H Calcium 8.9 Medications Administered Current Inpatient Medications Acetaminophen (Acetaminophen 325 Mg Tab) 650 mg PO Q4H PRN PRN Reason: Pain or Fever Stop: 07/21/23 16:53 Last Admin: 06/25/23 09:38 Dose: 650 mg Allopurinol (Allopurinol 100 Mg Tab) 100 mg PO QAM DENEEN Stop: 07/22/23 08:59 Last Admin: 06/25/23 08:00 Dose: 100 mg Amiodarone HCl (Amiodarone 200 Mg Tab) 200 mg PO QAM DENEEN Stop: 07/22/23 08:59 Last Admin: 06/25/23 08:01 Dose: 200 mg Artificial Tears (Artificial Tears) 1 drops OP Q12H DENEEN Stop: 07/21/23 20:59 Last Admin: 06/25/23 08:01 Dose: Not Given Atorvastatin Calcium (Atorvastatin 40 Mg Tab) 80 mg PO HS DENEEN Stop: 07/21/23 20:59 Last Admin: 06/24/23 20:54 Dose: 80 mg Dextrose (Dextrose 50% 50 Ml Syringe) 25 - 50 ml IV UD PRN; Protocol PRN Reason: Hypoglycemia Protocol Stop: 07/21/23 16:53 Duloxetine HCl (Duloxetine Hcl 30 Mg Cap) 30 mg PO QAM DENEEN Stop: 07/22/23 08:59 Last Admin: 06/25/23 08:00 Dose: 30 mg Famotidine (Famotidine 40 Mg Tablet) 40 mg PO QPM DENEEN Stop: 07/21/23 20:59 Last Admin: 06/24/23 20:54 Dose: 40 mg Ferrous Sulfate (Ferrous Sulfate 325 Mg Tab) 325 mg PO Q48H DENEEN Stop: 07/22/23 08:59 Last Admin: 06/24/23 09:06 Dose: 325 mg Gabapentin (Gabapentin 400 Mg Cap) 400 mg PO TID DENEEN Stop: 07/21/23 20:59 Last Admin: 06/25/23 14:51 Dose: 400 mg Glucagon (Glucagon For Inj 1 Mg Vial) 1 mg SQ UD PRN; Protocol PRN Reason: Hypoglycemia Protocol Stop: 07/21/23 16:53 Glucose (Glucose 10 Tab/Tube) 4 - 8 tab PO UD PRN; Protocol PRN Reason: Hypoglycemia Treatment Stop: 07/21/23 16:53 Glucose (Glucose 40% Gel 15 Gm Tube) 15 - 30 gm PO UD PRN; Protocol PRN Reason: Hypoglycemia Protocol Stop: 07/21/23 16:53 Cefazolin Sodium (Ancef 2000mg) 2,000 mg in 15 mls @ 3.75 mls/min IV Q8H DENEEN Stop: 07/05/23 21:59 Last Admin: 06/25/23 14:50 Dose: 3.75 mls/min Insulin Aspart (Insulin Aspart Per Unit Charge) 0 units SC ACHS DENEEN Stop: 07/21/23 17:29 Last Admin: 06/25/23 17:06 Dose: 14 units Insulin Glargine (Lantus Per Unit Charge) 20 units SQ BID DENEEN Stop: 07/21/23 20:59 Last Admin: 06/25/23 08:01 Dose: 20 units Levothyroxine Sodium (Levothyroxine Sodium 125 Mcg Tablet) 125 mcg PO DAILYBB DENEEN Stop: 07/22/23 06:29 Last Admin: 06/25/23 05:53 Dose: 125 mcg Methenamine Hippurate (Methenamine Hippurate 1 Gm Tab) 1 gm PO BID DENEEN Stop: 07/21/23 20:59 Last Admin: 06/25/23 08:00 Dose: 1 gm Metoprolol Succinate (Metoprolol Succ 50mg Ext Rel Tab) 50 mg PO BID DENEEN Stop: 07/21/23 20:59 Last Admin: 06/25/23 08:00 Dose: 50 mg Miscellaneous (Carbohydrates For Hypoglycemia ) 15 - 30 gm PO UD PRN PRN Reason: Hypoglycemia Protocol Stop: 07/21/23 16:53 Pantoprazole Sodium (Pantoprazole 40 Mg Tab) 40 mg PO DAILY [facility] Stop: 07/22/23 08:59 Last Admin: 06/25/23 08:00 Dose: 40 mg Prednisone (Prednisone 5 Mg Tab) 5 mg PO QAM [facility] Stop: 07/22/23 08:59 Last Admin: 06/25/23 08:00 Dose: 5 mg Rivaroxaban (Rivaroxaban 15 Mg Tab) 15 mg PO QDD [facility] Stop: 07/21/23 17:29 Last Admin: 06/25/23 16:39 Dose: 15 mg Triamterene/Hydrochlorothiazide (Triamterene/Hctz 37.5/25mg Tab) 1 tab PO QAM [facility] Stop: 07/22/23 08:59 Last Admin: 06/25/23 08:00 Dose: 1 tab Vibegron (Vibegron 75 Mg Tab) 75 mg PO DAILY [facility] Stop: 07/22/23 08:59 Last Admin: 06/25/23 08:00 Dose: 75 mg
--- NOTE | 2023-06-25 22:08 | Podiatry Consultation ---
Date of Consultation June 25, 2023 Assessment & Plan (1) Infection of left foot: (2) Cellulitis and abscess of left leg: (3) Diabetes mellitus, type 2: (4) Diabetic peripheral neuropathy associated with type 2 diabetes mellitus: (5) Chronic ulcer of left foot limited to breakdown of skin: Plan Patient examined and evauated. - Foot ulceration cleaned, lightly sharply debrided at bedside, redressed with mepitel border. - Would benefit from continued conservative wound care. [facility] and potential wound care nursing consult. - Has been seeing Dr. Van locally for antibiosis and wound care; should continue this on discharge. - No indication for foot/ankle to keep her inpatient. No indication that this left foot ulcer is leading to positive blood cultures. No pending surgical intervention at this time. - Will require continued outpatient for healing. Further, we will continue to see her for nails/calluses on a regular basis to try and prevent future complications such as her amputation and new ulceration. - Thanks for the consult. We're always happy to help when possible. History of Present Illness Reason for Consultation: Left foot wound Attending Physician: Vicente Buitrago MD History of Present Illness Patient seen at bedside for concern of left foot wound and infection. She states that she was being seen outpatient and had labs drawn, revealing she had positive blood cultures. She was then told to present to the ED for admission and further workup. She does have a complex of foot and ankle concerns, including longstanding diabetes and a Charcot deformity on the right foot as well as a history of left foot infection and second toe amputation. Further, our practice has seen her for nails and calluses in the past. She was admitted for this second toe infection and amputation in April, so has not seen us in office since February. She denies any significant foot concerns recently and has done well since the amputation in a surgical shoe on the left and her [employer] walker on the right. She has a wound under her great toe, but has not noticed any infectious changes to this site. She denies any current or worsening signs or symptoms of infection, as well. Allergies Allergy/AdvReac Type Severity Reaction Status Date / Time sulfamethoxazole Allergy Intermediate Hives Verified 06/18/23 14:38 [From Bactrim] tetanus toxoid, adsorbed Allergy Intermediate LOCALIZED Verified 06/18/23 14:38 REACTION (arm swelling), MADE HER FEEL SICK trimethoprim [From Bactrim] Allergy Intermediate Hives Verified 06/18/23 14:38 amoxicillin AdvReac Intermediate "GOT Verified 06/18/23 14:38 C-DIFF" dalbavancin [From Dalvance] AdvReac Intermediate Vomiting Verified 06/18/23 14:38 minocycline AdvReac Intermediate HEADACHES Verified 06/18/23 14:38 tetracycline AdvReac Intermediate HEADACHES Verified 06/18/23 14:38 Home Medications Medication Instructions Recorded Confirmed Type gabapentin 400 mg capsule 400 mg PO TID 02/19/18 06/21/23 History multivitamin 1 tab PO QAM 02/19/18 06/21/23 History potassium 99 mg tablet 1 tab PO QPM 02/19/18 06/21/23 History cyanocobalamin (B12)-cobamamide 1,000 mcg sublingual QAM 03/12/18 06/21/23 History 5,000 mcg-100 mcg sublingual tablet (B-12 Plus) nitroglycerin 0.4 mg sublingual 0.4 mg sublingual Q5M PRN Chest 03/29/20 4 Rx tablet (Nitrostat) Pain #25 tabs calcium carbonate 500 mg-vitamin 1 tab PO BID 06/14/20 06/21/23 History D3 5 mcg (200 unit) tablet (Calcium 500 + D) conjugated estrogens 0.625 mg/gram 0.625 mg vaginal 2XWK 03/07/21 06/21/23 History vaginal cream (Premarin) ferrous sulfate 325 mg (65 mg 325 mg PO Q OTHER DAY 05/16/21 06/21/23 History iron) tablet (iron) neomycin-bacitracn Zn-polymyxn 3.5 1 applic topical DIRECTED PRN 10/18/21 06/21/23 History mg-400 unit-5,000 unit top oint pkt skin irritation ascorbic acid (vitamin C) 500 mg 500 mg PO .AFTERNOON 05/23/22 06/21/23 History tablet (Vitamin C) prednisone 5 mg tablet 5 mg PO QAM 05/23/22 06/21/23 History rivaroxaban 15 mg tablet (Xarelto) 15 mg PO QAM 05/23/22 06/21/23 History metformin 500 mg tablet 500 mg PO QPM #90 tabs 07/19/22 06/21/23 Rx atorvastatin 80 mg tablet 80 mg PO HS #90 tabs 08/16/22 06/21/23 Rx blood sugar diagnostic (OneTouch #100 ea 11/10/22 06/18/23 Rx Verio test strips) lancets 30 gauge (OneTouch Delica #100 ea 11/10/22 06/18/23 Rx Plus Lancet) blood-glucose meter (OneTouch #1 ea 12/26/22 06/18/23 Rx Verio Flex Meter) pen needle, diabetic 32 gauge x #100 ea 12/28/22 06/18/23 Rx 5/32" (BD Daly 2nd Gen Pen Needle) pen needle, diabetic 32 gauge x #100 ea 12/29/22 06/18/23 Rx 5/32" (BD Daly 2nd Gen Pen Needle) metoprolol succinate 50 mg 50 mg PO BID #180 tabs 01/29/23 06/21/23 Rx tablet,extended release 24 hr dulaglutide 4.5 mg/0.5 mL 4.5 mg (0.5 mL) subcut WEEKLY #2 mL 04/02/23 06/21/23 Rx subcutaneous pen injector methenamine hippurate 1 gram tablet 1 g PO BID #180 tabs 04/12/23 06/21/23 Rx allopurinol 100 mg tablet 100 mg PO QAM 05/16/23 06/21/23 History amiodarone 200 mg tablet 200 mg PO QAM 05/16/23 06/21/23 History cyclosporine 0.05 % eye drops in a 1 drp OPB Q12H 05/16/23 06/21/23 History dropperette (Restasis) diclofenac sodium 1 % topical gel 2 g topical QID PRN Pain 05/16/23 06/21/23 History duloxetine 30 mg capsule,delayed 30 mg PO QAM 05/16/23 06/21/23 History release esomeprazole magnesium 40 mg 40 mg PO QAM 05/16/23 06/21/23 History capsule,delayed release famotidine 40 mg tablet 40 mg PO QPM 05/16/23 06/21/23 History triamterene 37.5 1 tab PO QAM 05/16/23 06/21/23 History mg-hydrochlorothiazide 25 mg tablet valacyclovir 500 mg tablet 500 mg PO QPM 05/16/23 06/21/23 History insulin glargine 100 unit/mL (3 45 unit (0.45 mL) subcut 06/02/23 06/21/23 Rx mL) subcutaneous pen (Lantus DIRECTED #15 mL Solostar U-100 Insulin) levothyroxine 125 mcg tablet 125 mcg PO QAM 06/21/23 06/21/23 History mirabegron 50 mg tablet,extended 50 mg PO QAM 06/21/23 06/21/23 History release 24 hr (Myrbetriq) Patient History Medical History Sepsis Toe necrosis Encounter for colorectal cancer screening Chest pain RE-OCCURING ON OCC/ MOST RECENT LAST WEEK / USED NITRO FOR DENIES CHANGE IN BASELINE OCCURENCE DETAILS PT HAS DISCUSSED PAST OCCURENCES WITH DR ORPOEZA History of colon polyps 8-12/01 were normal and 1 something abdnormal/reason for upcoming colonoscopy Incomplete bladder emptying self cath tid Overactive bladder Wheelchair dependence pt states she can stand and pivot on her own On antibiotic therapy preventative for recurring wound infection to rt foot and recurring UTIs - abx tx through picc line completed 3 - 4 weeks ago current : wound on foot doing really well per pt/no current s/s uti History of ESBL E. coli infection Rectal ulcer hx Arthritis Charcot's joint of foot in type 2 diabetes mellitus Sensorineural hearing loss of both ears Hemorrhoids, internal, with bleeding hx Stress incontinence in female Paroxysmal atrial fibrillation dx 2014 - on xarelto - follows with Dr. 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 03/12/2018. DONE AT [facility]. BLOCK WITH LMA. NO ISSUES. History of dilatation and curettage History of bilateral tubal ligation Charcot's joint of foot RIGHT FOOT (4 SURGERIES TOTAL) History of total knee replacement LEFT History of ankle surgery LEFT History of surgery BLADDER STIMULATOR IMPLANTED IN BACK- not sure if currently working History of bladder repair surgery R/T URINARY LEAKAGE History of colonoscopy History of tooth extraction History of tonsillectomy History of adenoidectomy History of cataract surgery RIGHT/LEFT History of coronary artery bypass graft CABG X 3 (2014) History of cardiac cath 2015= NO STENTS Family History Mother Family hx of colon cancer Cardiac disorder Colorectal cancer Cancer Hypertension Father Cardiac disorder Lung cancer Hypertension Grandmother (Maternal) Stroke Other No family history of adverse response to anesthesia Denies family history of Ovarian cancer Breast cancer Social History Smoking Status: Never smoker Second Hand Exposure: No; Do You Dip or Chew Tobacco: No; Tobacco Cessation Education Requested by Patient: No Hx Alcohol Use: No Hx Substance Use: No Preferred Language: iCADe Swedish Communication Ability: Effective Visual Impairment: Limited Hearing Ability: Use of Hearing Aid Almond Huller Required: No Beliefs That Will Affect Care: None marital status: Current Living Situation: Spouse current occupational status: retired Other Information That Helps Us Care for You: No Feels Safe at Home: Yes Safety Concerns: Feels Safe At This Time Diet: diabetic and regular caffeine: No Do you think of yourself as: straight/heterosexual Gender Identity: Female Assistive Devices: Brace/Splint/Immobilizer, Walker and Wheelchair Assistive Devices Comment: boots and foot/leg braces Review of Systems Review of Systems: All systems reviewed & are unremarkable except as noted in HPI & below Constitutional: no fever, no chills, no fatigue and no problem reported Eyes: no problem reported Ear, Nose, Mouth, Throat: no problem reported Respiratory: no cough, no chest congestion and no problem reported Cardiovascular: no chest pain and no problem reported Gastrointestinal: no problem reported Genitourinary: no problem reported Musculoskeletal: + deformity; no joint pain and no proble m reported Integumentary: + non-healing lesions and + skin ulcer; no erythema Neurologic: + loss of sensation and + numbness; no l ocalized weakness and no generalized weakness Psychiatric: no problem reported Physical Exam Physical Exam: Left lower extremity focused exam: DP/PT pulses palpable 1/4. CFT brisk to digits. Second toe amputation noted at the MTPJ. Advanced atrophic skin changes noted to the lower extremity. Nail dystrophy noted to remaining digits. Absent protective sensation. Ulceration noted to the left sub-1st MTPJ. No deep probing noted. No palpable fluctuance appreciated. No purulent drainage. No ascending erythema. Wound measures 0.6cm in diameter. Wound bed is 100% granular. No pain on palpation or probing. No abnormal reflexes noted. Constitutional: WD/WN, vitals as above Eyes: PERRL, conjunctivae normal, anicteric sclerae ENMT: external ear and nose normal, oropharynx normal Neck: trachea midline, no thyromegaly Respiratory: normal respiratory effort, lungs clear to auscultation no respiratory distress Cardiovascular: RRR, no murmur, no edema Rate/Rhythm: regular rate and regular rhythm Gastrointestinal (Abdomen): Inspection/Auscultation: abdomen normal to inspection Musculoskeletal: no cyanosis or clubbing, extremities motor strength 5/5 Head/Neck/Chest: normocephalic and head atraumatic Extremities: + amputation noted Gait: + limp Skin: + ulcer; no erythema Neurologic: PERRL, EOMI, accommodation nl, no face palsy, no dysarthria + abnormal sensation to monofilament Psychiatric: A+Ox3, euthymic affect Results & Data Vital Signs (Past 12 Hours) Vital Signs Temp Pulse Pulse Resp BP Pulse Ox O2 Del Method 06/25/23 19:20 36.6 C 73 20 138/70 94 Room Air 06/25/23 16:00 74 06/25/23 15:38 36.9 C 70 16 144/86 H 95 Room Air 06/25/23 13:24 79 06/25/23 11:30 36.5 C 88 20 154/78 H 97 Room Air Laboratory Results No new positive wound or blood cultures noted since admission. Diagnostic Findings CT scan reviewed and reveals potential space underlying ulceration, though not directly communicating with the ulcer. This is not correlated clinically to the ulcer; that is to say there is no obvious correlated abscess identified on clinical exam.
[2023-06-26 06:26] LABS: Basophils # (auto) 0.07 K/uL (0.00-0.20); Basophils % (auto) 0.6 %; Eosinophils # (auto) 0.18 K/uL (0.00-0.50); Eosinophils % (auto) 1.6 %; Immature Granulocytes # (auto) 0.55 K/uL (0.01-0.20); Immature Granulocytes % (auto) 4.9 %; Lymphocytes # (auto) 2.68 K/uL (1.20-3.40); Lymphocytes % (auto) 23.8 %; Mean Corpuscular Hemoglobin 31.1 pg (25.0-34.0); Mean Corpuscular Hgb Conc 31.3 g/dL (32.0-36.0); Mean Corpuscular Volume 99.4 fL (80.0-100.0); Mean Platelet Volume 10.9 fL (9.4-12.4); Monocytes # (auto) 1.28 K/uL (0.11-0.59); Monocytes % (auto) 11.4 %; Neutrophils # (auto) 6.48 K/uL (1.40-6.50); Neutrophils % (auto) 57.7 %; Platelet Count 288 K/uL (130-400); RDW Coefficient of Variation 14.9 % (11.5-14.5); RDW Standard Deviation 54.3 fL (36.4-46.3); Red Blood Count 3.22 M/uL (4.20-5.40); White Blood Count 11.24 K/ul (4.8-10.8)
[2023-06-26 06:32] LABS: Calcium 8.5 mg/dl (8.6-10.3); Potassium 3.3 mmol/L (3.5-5.1)
[2023-06-26 06:38] LABS: BUN Creatinine Ratio 26.4 (10-20); Creatinine Clr Calc Pharmacy 42.3 ml/min; Est GFR (African American) 55.3 ml/min; Est GFR (Non-African American) 47.7 ml/min
[2023-06-26] MEDS: POTASSIUM CHLORIDE CRTAB 20 MEQ TABCR PO STA (12:11)
--- NOTE | 2023-06-26 14:50 | Hospitalist Progress Note ---
Date of Service June 26, 2023 Assessment & Plan (1) MSSA bacteremia: Plan: positive Blood cultures drawn on 06/17 for MSSA. Subsequent blood cultures drawn on June 21 are negative. She remains on Ancef 2 g IV every 8 hours. Infectious disease consultation and recommendations noted. She will remain on intravenous Ancef for total of 6 weeks. PICC line will be placed today, June 25 . (2) Infection of left foot: Plan: Left foot CT revealed no evidence of acute osteomyelitis, but did note 9 mm fluid collection deep to the wound (potential small abscess). Podiatry consult and recommendations appreciated. (3) Sacral ulcer: Plan: Present on admission. Appears to be stage III. Local care. Pelvic CT revealed no fluid collection to suggest an abscess. (4) Acute UTI: Plan: Possibly due to intermittent straight cathing. She is currently on Ancef. E. coli isolated. (5) Diabetes mellitus, type 2: Plan: Last A1c at 8.8% on 05/17/2023. ADA diet. Sliding scale coverage. Basal Lantus therapy. Metformin is temporarily on hold and will be restarted at discharge (6) Sepsis: Plan: Present on admission. Now resolved (7) Paroxysmal atrial fibrillation: Plan: Stable. Telemetry. Continue Xarelto. (8) CAD (coronary artery disease): Plan: Stable. Continue current medical (9) Dyslipidemia: Plan: Stable. Continue statin therapy (10) Hypothyroidism: Plan: The stable. Continue thyroid replacement therapy (11) Hypertension: Plan: Stable. Continue current medical management Plan Hopeful discharge to home tomorrow, June 26 Admission and Anticipated Discharge Date Admission Date: June 21, 2023 Subjective Alert and oriented. Pleasant. Afebrile. Infectious disease consultation noted. PICC line will be placed today, June 25, and she will go home hopefully tomorrow, June 26, on Ancef 2 g IV every 8 hours for [address] scan and pelvis CT scan done this admission is negative for abscess. Oral potassium replacement ordered today for potassium level 3.3. Wound care consult has been placed. Review of Systems 2 Review of Systems: Constitutional-no fever or chills ENT-no blurred vision, no double vision, no epistaxis, no sore throat Respiratory-no cough, no wheezing, no shortness of breath Cardiac-no palpitations, no chest pain, no syncope GI-no nausea, vomiting, diarrhea, melena, hematochezia -no urinary retention, no urinary incontinence, no dysuria, no hematuria Musculoskeletal-no joint pain, no muscle tenderness Skin-no bruising, no rashes, no pruritus Neuro-no isolated weakness, no paresthesia, no weakness Psych-no depression, no anxiety Physical Exam 2 Physical Exam: General-alert and oriented x3, no fever, no chills HEENT-head atraumatic and normocephalic, pupils equal and reactive to light, extraocular muscles intact Neck-no lymphadenopathy or thyromegaly, trachea midline Chest-clear to auscultation. No rales, wheezing or rhonchi Cardiac-regular rate and rhythm, normal S1 and S2, no murmurs Abdomen-normal bowel sounds, nontender, no hepatosplenomegaly Extremities-no cyanosis, clubbing, or edema Neuro-cranial nerves II through XII intact, motor and sensory function within normal limits, strength symmetrical, no focal deficits Psych-normal affect, normal mood Results & Data Results & Data Vital Signs (Past 12 Hours) Vital Signs Temp Pulse Resp BP Pulse Ox O2 Del Method 06/26/23 11:20 36.7 C 68 18 112/51 L 96 Room Air 06/26/23 07:07 36.4 C L 71 17 126/62 93 Room Air 06/26/23 03:15 36.9 C 73 18 121/78 96 Room Air Laboratory Results 06/26/23 05:41 06/26/23 05:41 PG Care Time/CCT Total # of Minutes Spent Total Time Spent with Patient: Total time spent is greater than 50% in coordination of care (as documented) at patient's floor/unit and/or counseling patient: Coding Level of Care Code 08385 SUB INP/OBS CARE 3/50MIN Diagnoses MSSA bacteremia R78.81; B95.61 Infection of left foot L08.9 Sacral ulcer L98.429 Acute UTI N39.0 Diabetes mellitus, type 2 E11.9 Sepsis A41.9 Paroxysmal atrial fibrillation I48.0 CAD (coronary artery disease) I25.10 Dyslipidemia E78.5 Hypothyroidism E03.9 Hypertension I10
--- NOTE | 2023-06-26 21:01 | Orthopedic Progress Note ---
Date of Service June 26, 2023 Assessment & Plan (1) Infection of left foot: (2) Cellulitis and abscess of left leg: (3) Diabetes mellitus, type 2: (4) Diabetic peripheral neuropathy associated with type 2 diabetes mellitus: (5) Chronic ulcer of left foot limited to breakdown of skin: Plan Patient examined and evaluated. - Appreciate wound care consult. - No indication for foot/ankle to keep her inpatient. No indication that this left foot ulcer is leading to positive blood cultures. No pending surgical intervention at this time. - Will require continued outpatient for healing. Further, we will continue to see her for nails/calluses on a regular basis to try and prevent future complications such as her amputation and new ulceration. She will call to get in within the next week or so after discharge - Thanks for the consult. Will sign off for now, but please reconsult as necessary. Admission and Anticipated Discharge Date Admission Date: June 21, 2023 Subjective Pt seen at bedside. No new complaints. Foot is feeling good without new concerns. She states that she is waiting on PICC line placement before being discharged home. Review of Systems Constitutional: no fever, no chills, no fatigue and no problem reported Eyes: no problem reported Ear, Nose, Mouth, Throat: no problem reported Respiratory: no cough, no chest congestion and no problem reported Cardiovascular: no chest pain and no problem reported Gastrointestinal: no problem reported Genitourinary: no problem reported Musculoskeletal: + deformity; no joint pain and no proble m reported Integumentary: + non-healing lesions and + skin ulcer; no erythema Neurologic: + loss of sensation and + numbness; no l ocalized weakness and no generalized weakness Psychiatric: no problem reported Physical Exam Physical Exam: Left lower extremity focused exam: DP/PT pulses palpable 1/4. CFT brisk to digits. Second toe amputation noted at the MTPJ. Advanced atrophic skin changes noted to the lower extremity. Nail dystrophy noted to remaining digits. Absent protective sensation. Ulceration noted to the left sub-1st MTPJ. No deep probing noted. No palpable fluctuance appreciated. No purulent drainage. No ascending erythema. Wound measures 0.6cm in diameter. Wound bed is 100% granular. No pain on palpation or probing. No abnormal reflexes noted. Constitutional: WD/WN, vitals as above Eyes: PERRL, conjunctivae normal, anicteric sclerae ENMT: external ear and nose normal, oropharynx normal Neck: trachea midline, no thyromegaly Respiratory: normal respiratory effort, lungs clear to auscultation no respiratory distress Cardiovascular: RRR, no murmur, no edema Rate/Rhythm: regular rate and regular rhythm Gastrointestinal (Abdomen): Inspection/Auscultation: abdomen normal to inspection Musculoskeletal: no cyanosis or clubbing, extremities motor strength 5/5 Head/Neck/Chest: normocephalic and head atraumatic Extremities: + amputation noted Gait: + limp Skin: + ulcer; no erythema Neurologic: PERRL, EOMI, accommodation nl, no face palsy, no dysarthria + abnormal sensation to monofilament Psychiatric: A+Ox3, euthymic affect Results & Data Vital Signs (Past 12 Hours) Vital Signs Temp Pulse Pulse Resp BP Pulse Ox O2 Del Method 06/26/23 19:19 37.2 C 77 18 147/70 H 94 Room Air 06/26/23 16:00 73 06/26/23 15:30 36.8 C 67 16 129/82 98 Room Air 06/26/23 11:20 36.7 C 68 18 112/51 L 96 Room Air
[2023-06-27 06:45] LABS: Hematocrit (blood only) 30.9 % (37.0-47.0); Hemoglobin 10.2 g/dl (12.0-16.0); Mean Corpuscular Hemoglobin 31.6 pg (25.0-34.0); Mean Corpuscular Volume 95.7 fL (80.0-100.0); Mean Platelet Volume 10.9 fL (9.4-12.4); Platelet Count 311 K/uL (130-400); RDW Coefficient of Variation 15.2 % (11.5-14.5); RDW Standard Deviation 53.1 fL (36.4-46.3); Red Blood Count 3.23 M/uL (4.20-5.40); White Blood Count 12.03 K/ul (4.8-10.8)
[2023-06-27 07:26] LABS: BUN Creatinine Ratio 28.6 (10-20); Calcium 8.7 mg/dl (8.6-10.3); Creatinine Clr Calc Pharmacy 44.1 ml/min; Est GFR (African American) 58.5 ml/min; Est GFR (Non-African American) 50.5 ml/min; Potassium 3.9 mmol/L (3.5-5.1)
[2023-06-27 07:29] LABS: Basophils # (auto) 0.06 K/uL (0.00-0.20); Basophils % (auto) 0.5 %; Eosinophils # (auto) 0.18 K/uL (0.00-0.50); Eosinophils % (auto) 1.5 %; Immature Granulocytes # (auto) 0.61 K/uL (0.01-0.20); Immature Granulocytes % (auto) 5.1 %; Lymphocytes # (auto) 3.23 K/uL (1.20-3.40); Lymphocytes % (auto) 26.8 %; Monocytes # (auto) 1.22 K/uL (0.11-0.59); Monocytes % (auto) 10.1 %; Neutrophils # (auto) 6.73 K/uL (1.40-6.50)
--- NOTE | 2023-06-27 11:12 | Discharge Summary ---
Date of Service June 27, 2023 Admission HPI Per Admitting Provider Nadia is a 78-year-old female with PMH of T2DM, diabetic foot ulcer, Charcot fracture of the right foot, peripheral neuropathy, CAD s/p CABG x 3, psoriatic arthritis (on chronic prednisone), HTN, paroxysmal A-fib (on Xarelto), HTN, GERD, gout, dyslipidemia, hypothyroidism, and osteoporosis. She presented for positive blood cultures drawn on Saturday 06/17. Positive for Staph aureus (methicillin sensitive) on two separate cultures. Of note, patient was recently hospitalized from 05/16 to 06/01 for sepsis, which led to amputation of necrotic second toe on her left foot with Dr. Cervantes on 05/19/2023. Patient completed a course of Ancef x 14 days while in the hospital. She reports that she was feeling well when she left the hospital on 06/01, and has not had any problems except for yesterday when she developed a brain fog that was constant. She reports she had some dizziness both at rest and with exertion, and was incredibly fatigued; stayed in bed for most of the day yesterday. She started having diarrhea yesterday as well, but does not believe she had a fever. Did not take her temperature at home to check. Intermittent headaches yesterday, but she reports this was nothing new for her. No pain in her left foot (chronic neuropathy). No recent injuries to the foot or ankle. Patient does note that she has developed a sacral ulcer that is new. She reports that she took all of her regular morning medications today, and that there have been no recent change in medications. No sick contacts. Mildly tachycardic at time of admission; vitals otherwise stable. ED course: Ancef 2000 mg IV NSS 500mL IV ROS: Patient endorses fatigue, chills, dizziness/lightheadedness, brain fog, confusion, intermittent GRIGGS (ongoing), blurry vision (ongoing), ESTEVEZ, dry cough, nausea, diarrhea (started yesterday), and neuropathy in the feet bilaterally. Patient denies fever, night-sweats, chest pain, SOB at rest or laying on back, pleuritic CP, abdominal pain,vomiting, blood in the urine/stool, dysuria, burning with urination, and left foot pain. Principal Diagnosis MSSA bacteremia, sepsis, E. coli UTI, chronic left foot diabetic ulcer without osteomyelitis Discharge Exam General-alert and oriented x3, no fever, no chills HEENT-head atraumatic and normocephalic, pupils equal and reactive to light, extraocular muscles intact Neck-no lymphadenopathy or thyromegaly, trachea midline Chest-clear to auscultation. No rales, wheezing or rhonchi Cardiac-regular rate and rhythm, normal S1 and S2, no murmurs Abdomen-normal bowel sounds, nontender, no hepatosplenomegaly Extremities-no cyanosis, clubbing, or edema Neuro-cranial nerves II through XII intact, motor and sensory function within normal limits, strength symmetrical, no focal deficits Psych-normal affect, normal mood Discharge Data Allergies Allergy/AdvReac Type Severity Reaction Status Date / Time sulfamethoxazole Allergy Intermediate Hives Verified 06/18/23 14:38 [From Bactrim] tetanus toxoid, adsorbed Allergy Intermediate LOCALIZED Verified 06/18/23 14:38 REACTION (arm swelling), MADE HER FEEL SICK trimethoprim [From Bactrim] Allergy Intermediate Hives Verified 06/18/23 14:38 amoxicillin AdvReac Intermediate "GOT Verified 06/18/23 14:38 C-DIFF" dalbavancin [From Dalvance] AdvReac Intermediate Vomiting Verified 06/18/23 14:38 minocycline AdvReac Intermediate HEADACHES Verified 06/18/23 14:38 tetracycline AdvReac Intermediate HEADACHES Verified 06/18/23 14:38 Consultations 06/21/23 13:16 ED Decision to Admit Stat 06/21/23 15:02 Consult Podiatry Routine 06/22/23 07:53 Consult Infectious Diseases Routine Ordered Studies 06/21/23 13:10 CT foot LT wo con Stat 06/21/23 13:55 CT pelvis wo con Stat 06/22/23 08:44 CT lumbar spine wo con Routine Hospital Course (1) MSSA bacteremia: positive Blood cultures drawn on 06/17 for MSSA. Subsequent blood cultures drawn on June 21 are negative. She remains on Ancef 2 g IV every 8 hours. Infectious disease consultation and recommendations noted. She will remain on intravenous Ancef for total of 6 weeks. PICC line will be placed today, June 26 . (2) Infection of left foot: Left foot CT revealed no evidence of acute osteomyelitis, but did note 9 mm fluid collection deep to the wound (potential small abscess). Podiatry consult and recommendations appreciated. (3) Sacral ulcer: Present on admission. Appears to be stage III. Local care. Pelvic CT revealed no fluid collection to suggest an abscess. (4) Acute UTI: Possibly due to intermittent straight cathing. She is currently on Ancef. E. coli isolated. (5) Diabetes mellitus, type 2: Last A1c at 8.8% on 05/17/2023. ADA diet. Sliding scale coverage. Basal Lantus therapy. Metformin is temporarily on hold and will be restarted at discharge (6) Sepsis: Present on admission. Now resolved (7) Paroxysmal atrial fibrillation: Stable. Telemetry. Continue Xarelto. (8) CAD (coronary artery disease): Stable. Continue current medical (9) Dyslipidemia: Stable. Continue statin therapy (10) Hypothyroidism: The stable. Continue thyroid replacement therapy (11) Hypertension: Stable. Continue current medical management Plan Home todayJune 26 Total Time Total Time Spent Total Time Spent (In Minutes): 45 minutes Discharge Plan Discharge Items Patient Disposition: Home - Home Health Services Reason For Visit: POSITIVE BLOOD CULTURES Discharge Diagnosis: MSSA bacteremia, E. coli UTI, Condition on Discharge: Good Activity: Resume your previous activity Non-emergency contact: Primary Care Provider Call non-emergency contact if: you have any medication questions and your symptoms worsen Follow-up/Referrals: Reno Perez MD [Primary Care Provider] - Diet: Carb Consistent or DM2 and Heart Healthy Addtl Attending Provider Instructions: Intravenous cefazolin for 6 weeks Pending Studies at Discharge: No Stand-Alone Forms: My [employer], Smoking Cessation Medications and DC Order Prescriptions: New cefazolin 2 gram recon soln 2 g IV Q8H Qty: 25 0RF Continued nitroglycerin [Nitrostat] 0.4 mg tablet, sublingual 0.4 mg Sublingual Q5M PRN (Reason: Chest Pain) Qty: 25 6RF Patient Comments: last use last week 2 doses Rx Instructions: Call 911 for chest pain that exceeds 3 doses metformin 500 mg tablet 500 mg PO QPM Qty: 90 3RF atorvastatin 80 mg tablet 80 mg PO HS Qty: 90 3RF Rx Instructions: TAKE 1 TABLET BY MOUTH AT BEDTIME metoprolol succinate 50 mg tablet extended release 24 hr 50 mg PO BID Qty: 180 3RF dulaglutide 4.5 mg/0.5 mL pen injector 4.5 mg SQ WEEKLY Qty: 2 5RF methenamine hippurate 1 gram tablet 1 g PO BID Qty: 180 0RF Premarin 0.625 mg/gram cream 0.625 mg vaginal 2XWK Hold Instructions: Home Medication placed on hold at Doctor's office Rx Instructions: ON HOLD D/T CATHING SELF. off 5 days; repeat cycle (DME) blood-glucose meter [OneTouch Verio Flex meter] Misc See Rx Instructions .ROUTE .MEDSUPPLY Qty: 1 0RF Rx Instructions: As directed (DME) pen needle, diabetic [BD Daly 2nd Gen Pen Needle] 32 gauge x 5/32" needle See Rx Instructions miscellaneous .MEDSUPPLY Qty: 100 3RF Rx Instructions: Change pen needle every day (DME) pen needle, diabetic [BD Daly 2nd Gen Pen Needle] 32 gauge x 5/32" needle See Rx Instructions .ROUTE .MEDSUPPLY Qty: 100 3RF Rx Instructions: change a new pen needle daily (DME) OneTouch Verio test strips Strip See Rx Instructions .ROUTE .MEDSUPPLY Qty: 100 5RF Dose Instruction: As directed Rx Instructions: test 3x a day (DME) lancets [OneTouch Delica Plus Lancet] 30 gauge misc See Rx Instructions miscellaneous .MEDSUPPLY Qty: 100 5RF Rx Instructions: change new needle 3x a day multivitamin Tablet 1 tab PO QAM Patient Comments: take late in the am gabapentin 400 mg Capsule 400 mg PO TID potassium 99 mg Tablet 1 tab PO QPM cyanocobalamin-cobamamide [B-12 Plus] 5,000-100 mcg Tablet, Sublingual 1,000 mcg sublingual QAM calcium carbonate-vitamin D3 [Calcium 500 + D] 500 mg(1,250mg) -200 unit tablet 1 tab PO BID Patient Comments: chewables [id number] 3.5-400-5,000 [id number] Ointment In Packet 1 applic TOPICAL DIRECTED PRN (Reason: skin irritation ) Xarelto 15 mg tablet 15 mg PO QAM Rx Instructions: must administer with evening meal ascorbic acid (vitamin C) [Vitamin C] 500 mg Tablet 500 mg PO .AFTERNOON Patient Comments: noon time prednisone 5 mg Tablet 5 mg PO QAM ferrous sulfate [iron] 325 mg (65 mg iron) tablet 325 mg PO Q OTHER DAY Patient Comments: takes late morning cyclosporine [Restasis] 0.05 % Dropperette 1 drp OPB Q12H diclofenac sodium 1 % Gel 2 g TOPICAL QID PRN (Reason: Pain) amiodarone 200 mg tablet 200 mg PO QAM famotidine 40 mg tablet 40 mg PO QPM Rx Instructions: TAKE 1 TABLET BY MOUTH EVERY DAY allopurinol 100 mg tablet 100 mg PO QAM Rx Instructions: TAKE 1 TABLET BY MOUTH EVERY MORNING valacyclovir 500 mg tablet 500 mg PO QPM Rx Instructions: TAKE 1 TABLET BY MOUTH EVERY EVENING esomeprazole magnesium 40 mg capsule,delayed release(DR/EC) 40 mg PO QAM Rx Instructions: TAKE 1 CAPSULE BY MOUTH EVERY DAY triamterene-hydrochlorothiazid 37.5-25 mg tablet 1 tab PO QAM Rx Instructions: TAKE 1 TAB ORALLY DAILY IN THE MORNING duloxetine 30 mg capsule,delayed release(DR/EC) 30 mg PO QAM Rx Instructions: TAKE 1 CAPSULE BY MOUTH EVERY DAY insulin glargine [Lantus Solostar U-100 Insulin] 100 unit/mL (3 mL) insulin pen 45 unit subcut DIRECTED Qty: 15 1RF Rx Instructions: 25 units in the morning and 20 units at night. levothyroxine 125 mcg tablet 125 mcg PO QAM Myrbetriq 50 mg tablet extended release 24 hr 50 mg PO QAM Discharge Orders: Discharge Order (Routine); Ordered 06/27/23 Ordered By: Vicente Buitrago Admission Data Admit Date/Time: 06/21/23 14:07 Attending Provider: Vicente Buitrago Admit Provider: Leodan Madden Primary Care Provider: Reno Perez Other Providers: Leodan Madden; Monisha Maher; Tayla Adames; Natasha Willingham; Maryan Allison; Meredith Rocha Antonie J.; Tamar Lee; Miri Hurd; Jayme Torres Coding Level of Care Code 22481 INP/OBS DISCH >30 MIN Diagnoses MSSA bacteremia R78.81; B95.61 Infection of left foot L08.9 Sacral ulcer L98.429 Acute UTI N39.0 Diabetes mellitus, type 2 E11.9 Sepsis A41.9 Paroxysmal atrial fibrillation I48.0 CAD (coronary artery disease) I25.10 Dyslipidemia E78.5 Hypothyroidism E03.9 Hypertension I10
--- NOTE | 2023-06-27 14:12 | Infectious Disease Progress Nt ---
Date of Service June 27, 2023 Assessment & Plan (1) MSSA bacteremia: (2) Cellulitis and abscess of left leg: (3) Status post amputation of toe of left foot: (4) Sacral wound: (5) Lower back pain: (6) Pressure ulcer of coccygeal region, stage 3: (7) Diabetes mellitus, type 2: Plan Nadia Andrews is a 78-year-old woman with history of T2DM, history of diabetic foot infection, Charcot foot, CAD s/p CABG x3, psoriatic arthritis (on chronic prednisone), HTN, paroxysmal A-fib (on Xarelto), HTN, GERD, gout, dyslipidemia, hypothyroidism, and osteoporosis, hardware in the R foot, L knee, and L-spine (bladder stimulator), neurogenic bladder (self-caths and with bladder stimula tor), recent hospitalization 05/16 to 06/02/23 (necrotic 2nd toe L foot wound s/p amputation on 05/19/23 and MSSA bacteremia 05/16/23 s/p 14d cefazolin), who had repeat BCx done with her PCP on 06/17 which returned positive for MSSA and developed dizziness and chills, prompting presentation to [facility] ED on 06/21/23. Found to have LLE SSTI with phlegmon and small abscess. ID is consulted for recurrent MSSA bacteremia and LLE SSTI. Patient with a recurrence of MSSA bacteremia a few weeks after completing her recent 14d course of cefazolin for MSSA bacteremia and necrotic L toe that was amputated. While a new infection is possible, this is concerning for a metastatic foci of infection and/or endovascular source, or possibly that her prior infection was not source-controlled (such as if there was indeed osteomyelitis). Sources include LLE SSTI and sacral wound which is new. She has lower back pain and pain in her bilateral knees. She reports hardware in the R foot, L knee, and L-spine (bladder stimulator). LLE with erythema and warmth c/w cellulitis/SSTI. CT L foot without evidence of acute osteomyelitis, but shows wound with subcutaneous induration along plantar medial L 1st MTP c/f cellulitis/phlegmon, small 9 mm fluid collection c/f abscess. She also. Appreciate podiatry evaluation of LLE infection. Recommend imaging of L-spine given lower back pain and presence of hardware (bladder stimulator). Would continue to monitor closely for s/sx of metastatic spread of infection (joint pain, back pain) with low threshold to image/evaluate. Close attention to L knee and R foot which have hardware. 06/20 TTE with no valvular vegetation identified. Given that this is a recurrence of bacteremia, would have a low threshold for SELAM if remains bacteremic but can hold off for now pending other evaluation and clinical course (e.g., if osteomyelitis/hardware-associated infection identified, will be receiving 6+ weeks of abx regardless). Would repeat BCx daily until clear x48 06/[address] is negative for infection. 06/20, 06/21, 06/24 blood cultures are NO Growth Podiatry evaluation of left no intervention Would continue cefazolin for optimal treatment of MSSA. Final abx selection and duration pending evaluation and clinical course. ID Problem List: 1.MSSA bacteremia, recurrent. BCx + 05/16/23 and now again + on 06/18/23 2.LLE SSTI with phlegmon and abscess 3.Sacral wound 4.Lower back pain 5.History of left diabetic foot infection - toe OM and SSTI s/p 2nd toe amputation and debridement 05/19 Cx+ MSSA and Finegoldia magna 6.Type 2 diabetes mellitus Recommendations: - Continue cefazolin 2g IV q8h - PICC line placed - Plan for 6 weeks of IV Cefazolin from first negative blood culture through 08/01/23 - Weekly CBC with diff, CMP - Patient states she has ID physician shes seen before, asked her to follow - Wound follow up for L foot - D/W Patient ABX AEs, PICC line hygiene, and follow ups ID will s/o, please call me with any questions or concerns Maryan Allison MD Infectious Diseases Admission and Anticipated Discharge Date Admission Date: June 21, 2023 Subjective Subsequent visit was provided via telemedicine using two-way real-time interactive telecommunication between the patient and the telemedicine provider. For the duration of the visit, the provider was performing the assessment from a different facility than the patient. This includesuse of bluetooth stethoscope forauscultationperformed by the telepresenter that the telemedicine provider can hear if described in the physical exam. [employer] contact information: Please call [facility] . (Phone Number For Physician Use Only) After establishing a telemedicine visit, patient was: Patient was verified with two unique identifiers, Patient/authorized rep acknowledged consent and understanding and Gave permission to continue telehealth session Time Spent with Patient: Subsequent => 35 min Feels well, No issues Results & Data Vital Signs (Past 12 Hours) Vital Signs Temp Pulse Pulse Resp BP BP Pulse Ox 06/27/23 11:37 37.0 C 71 18 123/64 97 06/27/23 11:26 36.8 C 66 18 123/58 L 144/76 H 96 06/27/23 07:16 81 06/27/23 07:08 36.8 C 66 18 123/58 L 96 06/27/23 03:09 36.6 C 71 16 127/67 94 O2 Del Method 06/27/23 11:37 Room Air 06/27/23 11:26 06/27/23 07:16 06/27/23 07:08 Room Air 06/27/23 03:09 Room Air Laboratory Results Laboratory Results - last 48 hr 06/25/23 06/25/23 06/26/23 16:36 20:11 05:41 WBC 11.24 H RBC 3.22 L Hgb 10.0 L Hct 32.0 L MCV 99.4 MCH 31.1 MCHC 31.3 L RDW Std Deviation 54.3 H RDW Coeff of Kristen 14.9 H Plt Count 288 MPV 10.9 Immature Gran % (Auto) 4.9 Neut % (Auto) 57.7 Lymph % (Auto) 23.8 [place] % (Auto) 11.4 Eos % (Auto) 1.6 Baso % (Auto) 0.6 Neut # (Auto) 6.48 Lymph # (Auto) 2.68 [place] # (Auto) 1.28 H Eos # (Auto) 0.18 Baso # (Auto) 0.07 Immature Gran # (Auto) 0.55 H Sodium 137 Potassium 3.3 L Chloride 104 Carbon Dioxide 22 Anion Gap 11 BUN 29 H Creatinine 1.10 Est Cr Clr Drug Dosing 42.3 Est GFR ( Amer) 55.3 Est GFR (Non-Af Amer) 47.7 BUN/Creatinine Ratio 26.4 H Glucose 131 H POC Glucose 154 H 169 H Calcium 8.5 L 06/26/23 06/26/23 06/26/23 07:09 11:25 16:45 WBC RBC Hgb Hct MCV MCH MCHC RDW Std Deviation RDW Coeff of Kristen Plt Count MPV Immature Gran % (Auto) Neut % (Auto) Lymph % (Auto) [place] % (Auto) Eos % (Auto) Baso % (Auto) Neut # (Auto) Lymph # (Auto) [place] # (Auto) Eos # (Auto) Baso # (Auto) Immature Gran # (Auto) Sodium Potassium Chloride Carbon Dioxide Anion Gap BUN Creatinine Est Cr Clr Drug Dosing Est GFR ( Amer) Est GFR (Non-Af Amer) BUN/Creatinine Ratio Glucose POC Glucose 141 H 137 H 163 H Calcium 06/26/23 06/27/23 06/27/23 20:35 06:18 07:11 WBC 12.03 H RBC 3.23 L Hgb 10.2 L Hct 30.9 L MCV 95.7 MCH 31.6 MCHC 33.0 RDW Std Deviation 53.1 H RDW Coeff of Kristen 15.2 H Plt Count 311 MPV 10.9 Immature Gran % (Auto) 5.1 Neut % (Auto) 56.0 Lymph % (Auto) 26.8 [place] % (Auto) 10.1 Eos % (Auto) 1.5 Baso % (Auto) 0.5 Neut # (Auto) 6.73 H Lymph # (Auto) 3.23 [place] # (Auto) 1.22 H Eos # (Auto) 0.18 Baso # (Auto) 0.06 Immature Gran # (Auto) 0.61 H Sodium 139 Potassium 3.9 Chloride 105 Carbon Dioxide 24 Anion Gap 10 BUN 30 H Creatinine 1.05 Est Cr Clr Drug Dosing 44.1 Est GFR ( Amer) 58.5 Est GFR (Non-Af Amer) 50.5 BUN/Creatinine Ratio 28.6 H Glucose 110 H POC Glucose 140 H 119 H Calcium 8.7 06/27/23 11:36 WBC RBC Hgb Hct MCV MCH MCHC RDW Std Deviation RDW Coeff of Kristen Plt Count MPV Immature Gran % (Auto) Neut % (Auto) Lymph % (Auto) [place] % (Auto) Eos % (Auto) Baso % (Auto) Neut # (Auto) Lymph # (Auto) [place] # (Auto) Eos # (Auto) Baso # (Auto) Immature Gran # (Auto) Sodium Potassium Chloride Carbon Dioxide Anion Gap BUN Creatinine Est Cr Clr Drug Dosing Est GFR ( Amer) Est GFR (Non-Af Amer) BUN/Creatinine Ratio Glucose POC Glucose 127 H Calcium Medications Administered Current Inpatient Medications Acetaminophen (Acetaminophen 325 Mg Tab) 650 mg PO Q4H PRN PRN Reason: Pain or Fever Stop: 07/21/23 16:53 Last Admin: 06/26/23 05:08 Dose: 650 mg Allopurinol (Allopurinol 100 Mg Tab) 100 mg PO QAM [facility] Stop: 07/22/23 08:59 Last Admin: 06/27/23 08:38 Dose: 100 mg Amiodarone HCl (Amiodarone 200 Mg Tab) 200 mg PO QAM [facility] Stop: 07/22/23 08:59 Last Admin: 06/27/23 08:38 Dose: 200 mg Artificial Tears (Artificial Tears) 1 drops OP Q12H [facility] Stop: 07/21/23 20:59 Last Admin: 06/27/23 08:36 Dose: Not Given Atorvastatin Calcium (Atorvastatin 40 Mg Tab) 80 mg PO HS [facility] Stop: 07/21/23 20:59 Last Admin: 06/26/23 21:30 Dose: 80 mg Dextrose (Dextrose 50% 50 Ml Syringe) 25 - 50 ml IV UD PRN; Protocol PRN Reason: Hypoglycemia Protocol Stop: 07/21/23 16:53 Duloxetine HCl (Duloxetine Hcl 30 Mg Cap) 30 mg PO QAM [facility] Stop: 07/22/23 08:59 Last Admin: 06/27/23 08:37 Dose: 30 mg Famotidine (Famotidine 40 Mg Tablet) 40 mg PO QPM [facility] Stop: 07/21/23 20:59 Last Admin: 06/26/23 21:30 Dose: 40 mg Ferrous Sulfate (Ferrous Sulfate 325 Mg Tab) 325 mg PO Q48H [facility] Stop: 07/22/23 08:59 Last Admin: 06/26/23 08:09 Dose: 325 mg Gabapentin (Gabapentin 400 Mg Cap) 400 mg PO TID [facility] Stop: 07/21/23 20:59 Last Admin: 06/27/23 13:37 Dose: 400 mg Glucagon (Glucagon For Inj 1 Mg Vial) 1 mg SQ UD PRN; Protocol PRN Reason: Hypoglycemia Protocol Stop: 07/21/23 16:53 Glucose (Glucose 10 Tab/Tube) 4 - 8 tab PO UD PRN; Protocol PRN Reason: Hypoglycemia Treatment Stop: 07/21/23 16:53 Glucose (Glucose 40% Gel 15 Gm Tube) 15 - 30 gm PO UD PRN; Protocol PRN Reason: Hypoglycemia Protocol Stop: 07/21/23 16:53 Heparin Sodium (Beef Lung) (Heparin 10 Unit/Ml 5 Ml Flush) 5 ml FLUSH PRN PRN PRN Reason: Flush Stop: 07/27/23 13:02 Cefazolin Sodium (Ancef 2000mg) 2,000 mg in 15 mls @ 3.75 mls/min IV Q8H [facility] Stop: 07/05/23 21:59 Last Admin: 06/27/23 13:37 Dose: 3.75 mls/min Insulin Aspart (Insulin Aspart Per Unit Charge) 0 units SC ACHS [facility] Stop: 07/21/23 17:29 Last Admin: 06/27/23 11:55 Dose: 9 units Insulin Glargine (Lantus Per Unit Charge) 20 units SQ BID [facility] Stop: 07/21/23 20:59 Last Admin: 06/27/23 08:45 Dose: 20 units Levothyroxine Sodium (Levothyroxine Sodium 125 Mcg Tablet) 125 mcg PO DAILYBB [facility] Stop: 07/22/23 06:29 Last Admin: 06/27/23 06:03 Dose: 125 mcg Methenamine Hippurate (Methenamine Hippurate 1 Gm Tab) 1 gm PO BID [facility] Stop: 07/21/23 20:59 Last Admin: 06/27/23 08:37 Dose: 1 gm Metoprolol Succinate (Metoprolol Succ 50mg Ext Rel Tab) 50 mg PO BID [facility] Stop: 07/21/23 20:59 Last Admin: 06/27/23 08:37 Dose: 50 mg Miscellaneous (Carbohydrates For Hypoglycemia ) 15 - 30 gm PO UD PRN PRN Reason: Hypoglycemia Protocol Stop: 07/21/23 16:53 Pantoprazole Sodium (Pantoprazole 40 Mg Tab) 40 mg PO DAILY [facility] Stop: 07/22/23 08:59 Last Admin: 06/27/23 08:37 Dose: 40 mg Prednisone (Prednisone 5 Mg Tab) 5 mg PO QAM [facility] Stop: 07/22/23 08:59 Last Admin: 06/27/23 08:37 Dose: 5 mg Rivaroxaban (Rivaroxaban 15 Mg Tab) 15 mg PO QDD [facility] Stop: 07/21/23 17:29 Last Admin: 06/26/23 16:12 Dose: 15 mg Triamterene/Hydrochlorothiazide (Triamterene/Hctz 37.5/25mg Tab) 1 tab PO QAM [facility] Stop: 07/22/23 08:59 Last Admin: 06/27/23 08:37 Dose: 1 tab Vibegron (Vibegron 75 Mg Tab) 75 mg PO DAILY [facility] Stop: 07/22/23 08:59 Last Admin: 06/27/23 08:37 Dose: 75 mg
== END 2023-06-27 16:37 | disposition home health service (06) | DRG 871 ==
LOC: ED 11:37 → SUATTDRO 14:07 → 2E 14:07

== ENCOUNTER 2025-03-04 17:09 | Inpatient (IN) ==
--- NOTE | 2025-03-04 18:01 | Emergency Department Note ---
Impression & Plan Dyspnea, Anemia, CHF (congestive heart failure) ED Provider Note ED Provider Note NAME: KATY DING AGE:79 SEX: Female : 1945 ARRIVES VIA: private vehicle INFORMANT: Patient ED PROVIDER(s): Kay Barnes DO CHIEF COMPLAINT: Shortness of breath HPI: She is an 79-year-old female who presents emergency department stating she was called by her PCP and told to come in due to abnormal outpatient labs that she had done earlier today. Patient states she had seen her PCP today for follow-up. She states when they called her and told her to come to the emergency room they were concerned she might need a blood transfusion and she states told her if she had significant anemia. Patient states she has previously required blood transfusions for anemia. Patient states she does take Xarelto daily, history of atrial fibrillation. She also has a history of coronary artery disease and had a prior CABG. Patient states she does use Lasix, and has had some increased swelling in her right leg. No known sick contacts, no recent fevers, chills, or URI symptoms. No history of asthma or COPD, no use of home oxygen or inhalers. PAST MEDICAL HISTORY:See Below PAST SURGICAL HISTORY:See Below FAMILY HISTORY:See Below SOCIAL HISTORY:See Below HOME MEDICATIONS:See Below ALLERGIES:See Below VITALS:See Below PHYSICAL EXAMINATION: GENERAL: alert, well appearing, well nourished, no distress, non-toxic EYE EXAM: normal conjunctiva, PERRL and EOM's grossly intact OROPHARYNX: no exudate, no erythema, lips, buccal mucosa, and tongue normal and mucous membranes are moist NECK: supple, no nuchal rigidity, no adenopathy, non-tender LUNGS: Decreased bilaterally to auscultation. Normal chest wall mechanics, no w/r/r, tachypnea and increased WOB noted HEART: no murmurs, S1 normal and S2 normal ABDOMEN: abdomen soft, non-tender, normo-active bowel sounds, no masses, no rebound or guarding. SKIN: no rashes, petechiae, orbruising UPPER EXTREMITIES: upper extremities are grossly normal. FROM, nml pulses b/l. LOWER EXTREMITIES: 2+ pitting edema right foot, dressing over wound to lateral malleolus, deformity consistent with a Charcot foot status post surgery; left AKA with well-healed stump NEURO EXAM: Normal sensorium, cranial nerves II-XII grossly intact, normal speech, no facial droop,nogross weakness of arms, no gross weakness of legs. Gross sensation intact. No ataxia. Vital Signs: reviewed and remarkable Differential Diagnosis: pneumonia, bronchitis, COPD/Asthma exacerbation, pneumothorax, pulmonary embolism, congestive heart failure, acute coronary syndrome, as well as others were considered MEDICAL DECISION MAKING: This is an 79-year-old female who presents to the emergency department after being referred here by her PCP after abnormal outpatient labs showed significant anemia. Patient noted she has been short of breath for 1 month. PCP was concerned for need for possible blood transfusion. Patient was afebrile and hemodynamically stable. She was not hypoxic despite her tachypnea and increased work of breathing. Labs drawn and sent, IV established, EKG and CXR performed and interpreted at bedside, and patient placed on telemetry. Patient with a history of chronic anemia although today's level is worse compared to prior. Troponin negative, EKG without acutely concerning changes, however BNP markedly elevated. Chest x-ray not suggestive of acute pulmonary edema however given cardiac history and recent cessation of diuretic more than a month ago, I suspect patient with evolving pulmonary edema leading to increased shortness of breath. Worsening anemia likely exacerbating this. Patient given IV Lasix here and case discussed with the hospitalist for further evaluation and management. At this time I do not suspect occult infectious etiology. Patient was noted to have some lower extremity edema in her right ankle and foot however states this is chronic due to prior surgeries in that foot and ankle. Consultation(s): 2039: Discussed with Dr. Prescott, [place] hospitalist team, for additional evaluation and mgmt. ER Treatment Provided: See below Diagnostics Interpreted By Me: -ECG: nsr at 66, nml axis, nml intervals, ST depression in I/aVL, T wave inversion in V2/4 and flattened in V4; these changes were present on an EKG in April 2023 however do appear slightly worse -Cardiac Monitoring: An order was placed for continuous cardiac monitoring. The monitor shows a rate of 62 with normal sinus rhythm. -Laboratory studies: As stated above and show below. -Imaging studies: cxr: Cardiomegaly, no focal consolidation, no pleural effusion, no wide mediastinum, sternotomy wires noted Triage Nursing Note Reviewed Prior/Outside Records Reviewed -prior echo reviewed Past Med/Surg History Problem List (Updated 03/05/25 @ 01:40 by Austen Prescott MD) Cellulitis of right lower extremity CHF (congestive heart failure) (Acute) Anemia (Acute) Dyspnea (Acute) Abnormal plain x-ray of ankle Routine gynecological examination Stage III pressure ulcer of right ankle (Acute) Hx of recurrent urinary tract infection Incomplete bladder emptying Hepatic steatosis per 01/21/25 liver ultrasound Hepatomegaly per 01/11/25 liver ultrasound IBS (irritable bowel syndrome) Edema of lower extremity (HFpEF) heart failure with preserved ejection fraction Chronic anemia Leukocytosis Left above-knee amputee Controlled type 2 diabetes mellitus Osteoporosis GERD without esophagitis Dyslipidemia Paroxysmal atrial fibrillation Dx 2014 Taking Xarelto Type 2 diabetes mellitus with obesity Vitamin B12 deficiency (Acute) Diabetes mellitus with diabetic polyneuropathy B/L hands and feet CAD (coronary artery disease) CABG x3 (2014) Medical History History of atrial fibrillation f/u sapna oropeza Hx of pulmonary edema 02/2024, "had episode while admitted to [facility], put her on oxygen and Lasix. no longer on either one" Hx of osteoporosis Hx of gastroesophageal reflux (GERD) Controlled type 2 diabetes mellitus IDDM CAD (coronary artery disease) CABG x3 (2014) Above knee amputation of left lower extremity Fracture of medial malleolus (~02/20/24) left knee/acute periprosthetic distal left femur fracture and left ankle/acute left medial malleolar fracture Sheila-prosthetic femoral shaft fracture (~02/20/24) left knee/acute periprosthetic distal left femur fracture and left ankle/acute left medial malleolar fracture History of Clostridium difficile infection C. diff positive 02/05/24 and is currently on treatment. Diarrhea resolved ~02/08/24. Antibiotics to be completed 02/17/24. Hypertension Hx of myocardial infarction (2014) CABG x [address] Oropeza Radial scar of left breast Neurogenic bladder only self-caths "if she can't relieve the bladder, very rare occurence" Depression Psoriatic arthritis Diabetic ulcer of right ankle States no current drainage, using bandage Follows with Dr. Sasha Van- infectious disease/wound Clinic Wound culture 01/08/24- MRSA & enterococcus per infectious disease office visit records Urticaria ongoing, takes zyrtec to relieve Rectal incontinence Wears depends History of colon polyps Wheelchair dependence Patient states she can stand and pivot on her own Arthritis Sensorineural hearing loss of both ears Stress incontinence in female Fibromyalgia Osteoarthritis Gout Hypothyroidism Hyperlipidemia Surgical History H/O left breast biopsy (07/08/24) Hx of above knee amputation H/O breast biopsy Hx of flexible sigmoidoscopy (01/2020) Hx of colonoscopy with polypectomy Status post amputation of toe of left foot (05/19/23) History of surgery History of left knee surgery (2009) History of carpal tunnel surgery of left wrist (~2020) History of repair of rotator cuff (03/12/18) History of dilatation and curettage History of bilateral tubal ligation Charcot's joint of foot History of total knee replacement History of ankle surgery History of surgery History of bladder repair surgery History of tooth extraction History of tonsillectomy History of adenoidectomy History of cataract surgery History of coronary artery bypass graft (2014) History of cardiac cath (2014) Family History Mother Family hx of colon cancer Cardiac disorder Colorectal cancer Cancer Hypertension Heart disease Father Cardiac disorder Lung cancer Hypertension Grandmother (Maternal) Stroke Other No family history of adverse response to anesthesia Denies family history of Ovarian cancer Breast cancer Social History Smoking Status: Never smoker Second Hand Exposure: Yes (hx growing up); Do You Dip or Chew Tobacco: No; Hx Alcohol Use: Yes Alcohol type: wine and hard liquor Alcohol Intake Frequency: 2-4 x/Month Hx Substance Use: No Preferred Language: Liberian Communication Ability: Effective Visual Impairment: No Limitations Hearing Ability: Use of Hearing Aid Building Services Coordinator Required: No Beliefs That Will Affect Care: None marital status: Current Living Situation: Spouse current occupational status: retired How many Children do You have: 2 Feels Safe at Home: Yes Diet: diabetic and regular caffeine: No during the past year weight has: increased > 10 lbs Seatbelt Use: always Do you think of yourself as: straight/heterosexual Gender Identity: Female Assistive Devices: Denture - Upper, Glasses, Hearing Aid - Bilateral and Wheelchair Allergies Allergies Allergy/AdvReac Type Severity Reaction Status Date / Time sulfamethoxazole Allergy Intermediate Hives Verified 03/04/25 21:41 [From Bactrim] tetanus toxoid, adsorbed Allergy Intermediate Localized Verified 03/04/25 21:41 reaction (arm swelling), "felt sick" trimethoprim [From Bactrim] Allergy Intermediate Hives Verified 03/04/25 21:41 amoxicillin AdvReac Intermediate C. diff Verified 03/04/25 21:41 dalbavancin [From Dalvance] AdvReac Intermediate Vomiting Verified 03/04/25 21:41 minocycline AdvReac Intermediate Headaches Verified 03/04/25 21:41 tetracycline AdvReac Intermediate Headaches Verified 03/04/25 21:41 Home Meds Home Medications Medication Instructions Recorded Confirmed gabapentin 400 mg capsule 400 mg PO TID 02/19/18 03/04/25 multivitamin 1 tab PO QAM 02/19/18 03/04/25 cyanocobalamin (B12)-cobamamide 1,000 mcg sublingual QAM 03/12/18 03/04/25 5,000 mcg-100 mcg sublingual tablet (B-12 Plus) calcium 500 mg (as 3 tab PO QAM 06/14/20 03/04/25 carbonate)-vitamin D3 5 mcg (200 unit) tablet (Calcium 500 + D) ferrous sulfate 325 mg (65 mg 325 mg PO Q OTHER DAY 05/16/21 03/04/25 iron) tablet (iron) ascorbic acid (vitamin C) 500 mg 500 mg PO QPM 05/23/22 03/04/25 tablet (Vitamin C) prednisone 5 mg tablet 5 mg PO QAM 05/23/22 03/04/25 cyclosporine 0.05 % eye drops in a 1 drp OPB Q12H 05/16/23 03/04/25 dropperette (Restasis) blood-glucose,business development manager,cont 06/16/24 03/04/25 (FreeStyle Giselle 3 [place]) fluticasone propionate 50 1 spray intranasal QPM 06/16/24 03/04/25 mcg/actuation nasal spray,suspension vitamins A,C,Q-mldo-mogvwo 4,296 1 cap PO BID 06/16/24 03/04/25 mcg-226 mg-90 mg capsule (PreserVision AREDS) cetirizine 10 mg capsule (Zyrtec) 10 mg PO DAILY PRN Allergy Symptoms 02/16/25 03/04/25 duloxetine 30 mg capsule,delayed 30 mg PO DAILY 03/04/25 03/04/25 release insulin glargine 100 unit/mL (3 43 unit subcut QPM 03/04/25 03/04/25 mL) subcutaneous pen (Lantus Solostar U-100 Insulin) Previous Rx's Medication Instructions Recorded nitroglycerin 0.4 mg sublingual 0.4 mg sublingual Q5M PRN Chest 03/29/20 tablet (Nitrostat) Pain #25 tabs blood-glucose meter (OneTouch #1 ea 12/26/22 Verio Flex Meter) pen needle, diabetic 32 gauge x #150 ea 08/14/23" (BD Daly 2nd Gen Pen Needle) blood sugar diagnostic (OneTouch #100 ea 09/06/23 Verio test strips) lancets 30 gauge (OneTouch Delica #100 ea 11/01/23 Plus Lancet) esomeprazole magnesium 40 mg 40 mg PO QAM #90 caps 04/14/24 capsule,delayed release amiodarone 200 mg tablet 200 mg PO QAM #90 tabs 09/15/24 atorvastatin 80 mg tablet 80 mg PO HS #90 tabs 09/15/24 Myrbetriq 50 mg tablet,extended 50 mg PO QAM #90 tabs 10/22/24 release (mirabegron) levothyroxine 125 mcg tablet 125 mcg PO QAM #90 tabs 11/03/24 famotidine 40 mg tablet 40 mg PO QPM #90 tabs 11/07/24 metformin 500 mg tablet 500 mg PO QPM #90 tabs 11/07/24 metoprolol succinate 50 mg 50 mg PO BID #180 tabs 11/07/24 tablet,extended release 24 hr telmisartan 40 mg tablet 40 mg PO DAILY #90 tabs 11/07/24 rivaroxaban 15 mg tablet (Xarelto) 15 mg PO QPM #90 tabs 12/03/24 allopurinol 100 mg tablet 100 mg PO QAM #90 tabs 12/09/24 insulin aspart U-100 100 unit/mL 16 unit (0.16 mL) subcut TID #45 mL 12/11/24 (3 mL) subcutaneous pen (Novolog FlexPen U-100 Insulin aspart) dulaglutide 4.5 mg/0.5 mL 4.5 mg (0.5 mL) subcut Q7D #2 mL 12/12/24 subcutaneous pen injector (Trulicity) methenamine hippurate 1 gram tablet 1 g PO BID #180 tabs 01/08/25 valacyclovir 500 mg tablet 500 mg PO QPM #90 tabs 02/16/25 Results & Data (ED) Vital Signs Vital Signs - 24 hr 03/04/25 17:19 03/04/25 17:36 03/04/25 17:39 Temperature 36.5 C Temperature Source Temporal Artery Scan Pulse Rate 67 67 Pulse Rate [Right Finger] 67 Respiratory Rate 24 19 Respiratory Effort / Characteristics Short of Breath Respiratory Depth Shallow Respiratory Pattern Regular Blood Pressure 142/54 H Blood Pressure [Right Arm] 168/69 H Blood Pressure Mean 83 Blood Pressure Mean [Right Arm] 102 Pulse Oximetry 96 97 Oxygen Delivery Method Room Air Room Air Sepsis Recent Fever Within 48 Hours No Sepsis New/Unexplained Change in Mental Status N/A Sepsis Action Taken by Nursing No Action Required 03/04/25 18:30 03/04/25 19:00 03/04/25 21:00 Temperature Temperature Source Pulse Rate Pulse Rate [Right Finger] 66 66 71 Respiratory Rate 16 14 16 Respiratory Effort / Characteristics Non-Labored Spontaneous Non-Labored Spontaneous Respiratory Depth Normal Normal Respiratory Pattern Regular Regular Blood Pressure Blood Pressure [Right Arm] 130/61 141/63 H 136/69 Blood Pressure Mean Blood Pressure Mean [Right Arm] 84 89 91 Pulse Oximetry 97 98 94 Oxygen Delivery Method Room Air Room Air Room Air Sepsis Recent Fever Within 48 Hours Sepsis New/Unexplained Change in Mental Status Sepsis Action Taken by Nursing 03/04/25 21:56 03/04/25 23:00 03/05/25 01:00 Temperature Temperature Source Pulse Rate 69 Pulse Rate [Right Finger] 71 72 Respiratory Rate 16 15 Respiratory Effort / Characteristics Non-Labored Spontaneous Non-Labored Spontaneous Respiratory Depth Normal Normal Respiratory Pattern Regular Regular Blood Pressure Blood Pressure [Right Arm] 132/64 144/62 H Blood Pressure Mean Blood Pressure Mean [Right Arm] 86 89 Pulse Oximetry 96 97 Oxygen Delivery Method Room Air Room Air Sepsis Recent Fever Within 48 Hours Sepsis New/Unexplained Change in Mental Status Sepsis Action Taken by Nursing 03/05/25 02:15 Temperature Temperature Source Pulse Rate 71 Pulse Rate [Right Finger] Respiratory Rate 16 Respiratory Effort / Characteristics Respiratory Depth Respiratory Pattern Blood Pressure 142/70 H Blood Pressure [Right Arm] Blood Pressure Mean Blood Pressure Mean [Right Arm] Pulse Oximetry 97 Oxygen Delivery Method Room Air Sepsis Recent Fever Within 48 Hours Sepsis New/Unexplained Change in Mental Status Sepsis Action Taken by Nursing Laboratory Data 03/04/25 18:25 03/04/25 18:25 Lab Results 03/04/25 03/04/25 03/04/25 Range/Units 18:25 18:58 21:25 WBC 11.22 H (4.8-10.8) K/ul RBC 2.57 L (4.20-5.40) M/uL Hgb 8.3 L (12.0-16.0) g/dL Hct 26.8 L (37.0-47.0) % MCV 104.3 H (80.0-100.0) fL MCH 32.3 (25.0-34.0) pg MCHC 31.0 L (32.0-36.0) g/dL RDW Std Deviation 60.7 H (36.4-46.3) fL RDW Coeff of Kristen 16.0 H (11.5-14.5) % Plt Count 195 (130-400) K/uL MPV 12.8 H (9.4-12.4) fL Immature Gran % (Auto) 5.3 % Neut % (Auto) 74.0 % Lymph % (Auto) 11.9 % [place] % (Auto) 7.1 % Eos % (Auto) 1.2 % Baso % (Auto) 0.5 % Neut # (Auto) 8.31 H (1.40-6.50) K/uL Lymph # (Auto) 1.33 (1.20-3.40) K/uL [place] # (Auto) 0.80 H (0.11-0.59) K/uL Eos # (Auto) 0.13 (0.00-0.50) K/uL Baso # (Auto) 0.06 (0.00-0.20) K/uL Immature Gran # (Auto) 0.59 H (0.01-0.20) K/uL Polychromasia 1+ Tear Drop Cells 1+ PT 11.8 (9.0-12.0) Seconds INR 1.1 (0.9-1.1) Sodium 139 (136-145) mmol/L Potassium 5.1 (3.5-5.1) mmol/L Chloride 113 H (98-107) mmol/L Carbon Dioxide 17 L (21-32) mmol/L Anion Gap 9 (3-11) BUN 40 H (6-23) mg/dl Creatinine 1.67 H (0.6-1.2) mg/dl Est Cr Clr Drug Dosing Not Reportable eGFR 30.78 BUN/Creatinine Ratio 24.0 H (10-20) Glucose 195 H (70-99(Fasting)) mg/dl Calcium 8.7 (8.6-10.3) mg/dl Magnesium 2.3 (1.7-2.4) mg/dl Total Bilirubin 0.4 (0.2-1.0) mg/dl AST 23 (13-39) U/L ALT 22 (7-52) U/L Alkaline Phosphatase 98 (34-104) U/L Troponin I High Sens 9.1 (0-14) pg/ml B-Natriuretic Peptide 912 H (0-100) pg/ml Total Protein 7.3 (6.0-8.3) gm/dl Albumin 3.4 (3.4-5.0) gm/dl Globulin 3.9 (2.5-4.0) gm/dl Albumin/Globulin Ratio 0.9 (0.9-2) SARS-CoV-2 (PCR) NEGATIVE (Negative) Influenza Type A (PCR) Negative (Neg) Influenza Type B (PCR) Negative (Neg) RSV (RT-PCR) Negative (Neg) Blood Type A Positive Antibody Screen NEGATIVE Administered Medications Discontinued Medications Furosemide (Furosemide 40 Mg/4 Ml Vial) 40 mg IV ONE ONE Stop: 03/04/25 20:36 Last Admin: 03/04/25 21:18 Dose: 40 mg Documented By: TELMA Cefepime HCl (Maxipime 2000mg) 2,000 mg in 20 mls @ 5 mls/min IV ONE STA; Protocol Stop: 03/04/25 22:28 Last Admin: 03/04/25 23:36 Dose: 5 mls/min Documented By: DAVID Daptomycin 500 mg/ Syringe 10 mls @ 5 mls/min IV ONE STA; Protocol Stop: 03/04/25 22:28 Last Admin: 03/05/25 00:06 Dose: 5 mls/min Documented By: DAVID Sodium Zirconium Cyclosilicate (Sodium Zirconium Cyclosilicate 10 Gm Packet) 10 gm PO NOW STA Stop: 03/04/25 22:34 Last Admin: 03/04/25 23:37 Dose: 10 gm Documented By: DAVID Imaging Data Radiologist's Impression: Chest X-Ray 03/04/25 17:58 EXAM: Portable AP chest radiograph TECHNIQUE: AP portable radiograph of the chest was obtained. INDICATION: Shortness of breath Comparison: Chest radiograph November 26, 2024. FINDINGS: LINES and TUBES: None CARDIOVASCULAR: Cardiac silhouette is stably enlarged with redemonstrated post-CABG changes LUNGS/PLEURA: No focal consolidation identified. Bibasilar atelectasis versus scarring. Mild pulmonary vascular congestion and chronic interstitial lung changes appear similar to the previous radiograph. No significant pleural fluid. No discernible pneumothorax. OSSEOUS/OTHER: No displaced acute osseous process identified. IMPRESSION: Postoperative heart redemonstrated with similar congestive changes of the cardiovascular system. Electronically signed by Sanjiv Block 03-04-2025 7:38 PM Discharge Plan Visit Data Chief Complaint: Abnormal Labs/Diagnostic Testing Stated Complaint: ANEMIA ED Provider: Kay Barnes Discharge Problem: Dyspnea, Anemia, CHF (congestive heart failure) Patient Disposition: Admitted As Inpatient Condition: Fair Discharge Instructions Interventions: ED Discharge Assessment Last Done: 03/05/25 02:15 Forms Stand Alone Forms: [employer] Prescriptions Prescriptions: No Action Zyrtec 10 mg capsule 10 mg PO DAILY PRN (Reason: Allergy Symptoms) nitroglycerin [Nitrostat] 0.4 mg tablet, sublingual 0.4 mg Sublingual Q5M PRN (Reason: Chest Pain) Qty: 25 6RF Patient Comments: last use last week 2 doses Rx Instructions: Call 911 for chest pain that exceeds 3 doses (DME) OneTouch Verio test strips Strip See Rx Instructions .ROUTE .MEDSUPPLY Qty: 100 5RF Dose Instruction: As directed Rx Instructions: test 3x a day (DME) lancets [OneTouch Delica Plus Lancet] 30 gauge misc See Rx Instructions miscellaneous .MEDSUPPLY Qty: 100 5RF Rx Instructions: change new needle 3x a day esomeprazole magnesium 40 mg capsule,delayed release(DR/EC) 40 mg PO QAM Qty: 90 3RF amiodarone 200 mg tablet 200 mg PO QAM Qty: 90 3RF atorvastatin 80 mg tablet 80 mg PO HS Qty: 90 3RF Myrbetriq 50 mg tablet extended release 24 hr 50 mg PO QAM Qty: 90 3RF levothyroxine 125 mcg tablet 125 mcg PO QAM Qty: 90 1RF Xarelto 15 mg tablet 15 mg PO QPM Qty: 90 3RF Hold Instructions: Resume on 07/11/24. Rx Instructions: must administer with evening meal allopurinol 100 mg tablet 100 mg PO QAM Qty: 90 3RF insulin aspart U-100 [Novolog FlexPen U-100 Insulin] 100 unit/mL (3 mL) insulin pen 16 unit subcut TID MDD 48 units Qty: 45 3RF Trulicity 4.5 mg/0.5 mL pen injector 4.5 mg subcut Q7D Qty: 2 5RF Rx Instructions: 03/04/25 : TAKE THIS MED EVERY SUNDAY methenamine hippurate 1 gram tablet 1 g PO BID Qty: 180 3RF valacyclovir 500 mg tablet 500 mg PO QPM Qty: 90 2RF (DME) blood-glucose meter [OneTouch Verio Flex meter] Misc See Rx Instructions .ROUTE .MEDSUPPLY Qty: 1 0RF Rx Instructions: As directed (DME) pen needle, diabetic [BD Daly 2nd Gen Pen Needle] 32 gauge x 5/32" needle See Rx Instructions .ROUTE .MEDSUPPLY Qty: 150 5RF Rx Instructions: Change new pen needle 4 x a day telmisartan 40 mg tablet 40 mg PO DAILY Qty: 90 3RF famotidine 40 mg tablet 40 mg PO QPM Qty: 90 3RF metformin 500 mg tablet 500 mg PO QPM Qty: 90 3RF metoprolol succinate 50 mg tablet extended release 24 hr 50 mg PO BID Qty: 180 3RF (DME) FreeStyle Giselle 3 [place] Misc See Rx Instructions .Route Rx Instructions: As directed PreserVision AREDS 4,296 mcg-226 mg-90 mg capsule 1 cap PO BID fluticasone propionate 50 mcg/actuation spray,suspension 1 spray intranasal QPM Rx Instructions: administer into each nostril multivitamin Tablet 1 tab PO QAM Patient Comments: take late in the am gabapentin 400 mg Capsule 400 mg PO TID cyanocobalamin-cobamamide [B-12 Plus] 5,000-100 mcg Tablet, Sublingual 1,000 mcg sublingual QAM calcium carbonate-vitamin D3 [Calcium 500 + D] 500 mg(1,250mg) -200 unit tablet 3 tab PO QAM Patient Comments: chewables ascorbic acid (vitamin C) [Vitamin C] 500 mg Tablet 500 mg PO QPM Patient Comments: noon time prednisone 5 mg Tablet 5 mg PO QAM ferrous sulfate [iron] 325 mg (65 mg iron) tablet 325 mg PO Q OTHER DAY Patient Comments: takes late morning cyclosporine [Restasis] 0.05 % Dropperette 1 drp OPB Q12H insulin glargine [Lantus Solostar U-100 Insulin] 100 unit/mL (3 mL) insulin pen 43 unit subcut QPM Patient Comments: pt stated taking 45 units at HS as of 07/04/24 duloxetine 30 mg capsule,delayed release(DR/EC) 30 mg PO DAILY Referrals Referrals: Pat Rich MD [Primary Care Provider] -
[2025-03-04 18:46] LABS: Hematocrit (blood only) 26.8 % (37.0-47.0); Hemoglobin 8.3 g/dL (12.0-16.0); Mean Corpuscular Hemoglobin 32.3 pg (25.0-34.0); Mean Corpuscular Volume 104.3 fL (80.0-100.0); Platelet Count 195 K/uL (130-400); RDW Standard Deviation 60.7 fL (36.4-46.3); Red Blood Count 2.57 M/uL (4.20-5.40); White Blood Count 11.22 K/ul (4.8-10.8)
[2025-03-04 19:02] LABS: Anion Gap 9 (3-11); Blood Urea Nitrogen 40 mg/dl (6-23); Carbon Dioxide 17 mmol/L (21-32); Chloride 113 mmol/L (98-107); Potassium 5.1 mmol/L (3.5-5.1); Sodium 139 mmol/L (136-145)
[2025-03-04 19:03] LABS: Alanine Aminotransferase 22 U/L (7-52); Albumin Globulin Ratio 0.9 (0.9-2); Albumin Level 3.4 gm/dl (3.4-5.0); Alkaline Phosphatase 98 U/L (34-104); Bilirubin,Total 0.4 mg/dl (0.2-1.0); Calcium 8.7 mg/dl (8.6-10.3); Globulin 3.9 gm/dl (2.5-4.0); Glucose 195 mg/dl (70-99(Fasting)); Magnesium 2.3 mg/dl (1.7-2.4); Total Protein 7.3 gm/dl (6.0-8.3)
[2025-03-04 19:20] LABS: INR 1.1 (0.9-1.1); Prothrombin Time 11.8 Seconds (9.0-12.0)
--- NOTE | 2025-03-04 19:38 | XRay Report ---
EXAM: Portable AP chest radiograph TECHNIQUE: AP portable radiograph of the chest was obtained. INDICATION: Shortness of breath Comparison: Chest radiograph November 26, 2024. FINDINGS: LINES and TUBES: None CARDIOVASCULAR: Cardiac silhouette is stably enlarged with redemonstrated post-CABG changes LUNGS/PLEURA: No focal consolidation identified. Bibasilar atelectasis versus scarring. Mild pulmonary vascular congestion and chronic interstitial lung changes appear similar to the previous radiograph. No significant pleural fluid. No discernible pneumothorax. OSSEOUS/OTHER: No displaced acute osseous process identified. IMPRESSION: Postoperative heart redemonstrated with similar congestive changes of the cardiovascular system. Electronically signed by Sanjiv Block 03-04-2025 7:38 PM
[2025-03-04 19:41] LABS: Immature Granulocytes # (auto) 0.59 K/uL (0.01-0.20); Immature Granulocytes % (auto) 5.3 %; Polychromasia 1+; Tear Drop Cells 1+
[2025-03-04] MEDS: FUROSEMIDE 40 MG/4 ML VIAL IV ONE (21:18)
--- NOTE | 2025-03-04 21:27 | History & Physical Report ---
Date of Service March 04, 2025 Assessment & Plan (1) (HFpEF) heart failure with preserved ejection fraction: (2) Anemia: (3) DAVID (acute kidney injury): (4) Cellulitis of right lower extremity: Plan The patient is a 79-year-old female with past medical history including CHF, stage III pressure ulcer of the right ankle, history of recurrent UTIs, complete bladder emptying, hepatomegaly, HFpEF, chronic anemia, diabetes mellitus type 2, GERD, esophagitis, dyslipidemia, PAF, B12 deficiency, diabetic polyneuropathy, and CAD. Patient had laboratories performed at her PCPs office today, received a call later in the day that her labs were abnormal, and that she needed to come to the emergency department for assessment. She was told that she might need a blood transfusion, and she has had a history of receiving transfusions in the past for her chronic anemia. She also notes increased swelling of the bilateral extremities, right greater than left. She denies any recent travels or sick exposures. Workup in the emergency department included the following abnormal laboratories: Hemoglobin 8.3, potassium 5.1, glucose 195, creatinine 1.67, BNP hide 12, albumin 3.4. Chest x-ray with mild CHF. ED patient received furosemide 40 mg IV, and was then referred for evaluation for admission to hospitalist service Exacerbation of HFpEF/CAD/PAF/hypertension- The patient will be admitted to telemetry for serial cardiac enzymes, serial EKG's, cardiac rhythm monitoring and a 2-D echocardiogram with Dopplers. Most recent echocardiogram from 11/26/2024 with ejection fraction 55 to 60%, no change compared to 06/21/2023. Troponin on admission 9.1. BNP 912 Continue furosemide 40 mg IV every morning Continue amiodarone, metoprolol succinate, and Xarelto. Holding telmisartan. Serial CBC with differential, chemistry profile, magnesium, PT/INR/PTT Question element of high-output CHF secondary to progressive anemia Anemia- Hemoglobin 8.3 on admission, with base range 9.4-10.6 Indices are macrocytic Continue B12 and iron supplementation Check B12 and iron panel levels May be secondary to progressive kidney dysfunction, with creatinine 1.09 on 12/11, 1.41 on 12/18, and 1.67. Hemoccult all stools. Acute kidney injury- Creatinine 1.67 on admission with baseline 1.09 Follow urine culture and sensitivity Potassium 5.1, will give Lokelma 10 mg p.o. x 1 Hold telmisartan Follow response to diuretics Right lower extremity cellulitis- History of left BKA Placement daptomycin IV and cefepime IV Consult wound care Diabetes mellitus- Hold Trulicity, metformin, and TID short acting insulin Decrease insulin glargine from 43 to 30 units SQ every afternoon for now Placed on Accu-Cheks with NovoLog SSI GERD- Change Nexium to pantoprazole per formulary interchange Continue famotidine Dyslipidemia- Temporarily hold atorvastatin while on daptomycin Diabetic polyneuropathy- Continue gabapentin and duloxetine Bladder spasm- Continue Myrbetriq History of Present Illness Primary Care Provider: Pat Rich MD The patient is a 79-year-old female with past medical history including CHF, stage III pressure ulcer of the right ankle, history of recurrent UTIs, complete bladder emptying, hepatomegaly, HFpEF, chronic anemia, diabetes mellitus type 2, GERD, esophagitis, dyslipidemia, PAF, B12 deficiency, diabetic polyneuropathy, and CAD. Patient had laboratories performed at her PCPs office today, received a call later in the day that her labs were abnormal, and that she needed to come to the emergency department for assessment. She was told that she might need a blood transfusion, and she has had a history of receiving transfusions in the past for her chronic anemia. She also notes increased swelling of the bilateral extremities, right greater than left. She denies any recent travels or sick exposures. Workup in the emergency department included the following abnormal laboratories: Hemoglobin 8.3, potassium 5.1, glucose 195, creatinine 1.67, BNP hide 12, albumin 3.4. Chest x-ray with mild CHF. ED patient received furosemide 40 mg IV, and was then referred for evaluation for admission to hospitalist service Allergies Allergy/AdvReac Type Severity Reaction Status Date / Time sulfamethoxazole Allergy Intermediate Hives Verified 03/04/25 21:41 [From Bactrim] tetanus toxoid, adsorbed Allergy Intermediate Localized Verified 03/04/25 21:41 reaction (arm swelling), "felt sick" trimethoprim [From Bactrim] Allergy Intermediate Hives Verified 03/04/25 21:41 amoxicillin AdvReac Intermediate C. diff Verified 03/04/25 21:41 dalbavancin [From Dalvance] AdvReac Intermediate Vomiting Verified 03/04/25 21:41 minocycline AdvReac Intermediate Headaches Verified 03/04/25 21:41 tetracycline AdvReac Intermediate Headaches Verified 03/04/25 21:41 Home Medications Medication Instructions Recorded Confirmed Type gabapentin 400 mg capsule 400 mg PO TID 02/19/18 03/04/25 History multivitamin 1 tab PO QAM 02/19/18 03/04/25 History cyanocobalamin (B12)-cobamamide 1,000 mcg sublingual QAM 03/12/18 03/04/25 History 5,000 mcg-100 mcg sublingual tablet (B-12 Plus) nitroglycerin 0.4 mg sublingual 0.4 mg sublingual Q5M PRN Chest 03/29/20 03/04/25 Rx tablet (Nitrostat) Pain #25 tabs calcium 500 mg (as 3 tab PO QAM 06/14/20 03/04/25 History carbonate)-vitamin D3 5 mcg (200 unit) tablet (Calcium 500 + D) ferrous sulfate 325 mg (65 mg 325 mg PO Q OTHER DAY 05/16/21 03/04/25 History iron) tablet (iron) ascorbic acid (vitamin C) 500 mg 500 mg PO QPM 05/23/22 03/04/25 History tablet (Vitamin C) prednisone 5 mg tablet 5 mg PO QAM 05/23/22 03/04/25 History blood-glucose meter (OneTouch #1 ea 12/26/22 03/04/25 Rx Verio Flex Meter) cyclosporine 0.05 % eye drops in a 1 drp OPB Q12H 05/16/23 03/04/25 History dropperette (Restasis) pen needle, diabetic 32 gauge x #150 ea 08/14/23 03/04/25 Rx 5/32" (BD Daly 2nd Gen Pen Needle) blood sugar diagnostic (OneTouch #100 ea 09/06/23 03/04/25 Rx Verio test strips) lancets 30 gauge (OneTouch Delica #100 ea 11/01/23 03/04/25 Rx Plus Lancet) esomeprazole magnesium 40 mg 40 mg PO QAM #90 caps 04/14/24 03/04/25 Rx capsule,delayed release blood-glucose,ink maker,cont 06/16/24 03/04/25 History (FreeStyle Giselle 3 Parish) fluticasone propionate 50 1 spray intranasal QPM 06/16/24 03/04/25 History mcg/actuation nasal spray,suspension vitamins A,C,M-jjcv-dprpld 4,296 1 cap PO BID 06/16/24 03/04/25 History mcg-226 mg-90 mg capsule (PreserVision AREDS) amiodarone 200 mg tablet 200 mg PO QAM #90 tabs 09/15/24 03/04/25 Rx atorvastatin 80 mg tablet 80 mg PO HS #90 tabs 09/15/24 03/04/25 Rx Myrbetriq 50 mg tablet,extended 50 mg PO QAM #90 tabs 10/22/24 03/04/25 Rx release (mirabegron) levothyroxine 125 mcg tablet 125 mcg PO QAM #90 tabs 11/03/24 03/04/25 Rx famotidine 40 mg tablet 40 mg PO QPM #90 tabs 11/07/24 03/04/25 Rx metformin 500 mg tablet 500 mg PO QPM #90 tabs 11/07/24 03/04/25 Rx metoprolol succinate 50 mg 50 mg PO BID #180 tabs 11/07/24 03/04/25 Rx tablet,extended release 24 hr telmisartan 40 mg tablet 40 mg PO DAILY #90 tabs 11/07/24 03/04/25 Rx rivaroxaban 15 mg tablet (Xarelto) 15 mg PO QPM #90 tabs 12/03/24 03/04/25 Rx allopurinol 100 mg tablet 100 mg PO QAM #90 tabs 12/09/24 03/04/25 Rx insulin aspart U-100 100 unit/mL 16 unit (0.16 mL) subcut TID #45 mL 12/11/24 Rx (3 mL) subcutaneous pen (Novolog FlexPen U-100 Insulin aspart) dulaglutide 4.5 mg/0.5 mL 4.5 mg (0.5 mL) subcut Q7D #2 mL 12/12/24 03/04/25 Rx subcutaneous pen injector (Trulicity) methenamine hippurate 1 gram tablet 1 g PO BID #180 tabs 01/08/25 03/04/25 Rx cetirizine 10 mg capsule (Zyrtec) 10 mg PO DAILY PRN Allergy Symptoms 02/16/25 03/04/25 History valacyclovir 500 mg tablet 500 mg PO QPM #90 tabs 02/16/25 03/04/25 Rx duloxetine 30 mg capsule,delayed 30 mg PO DAILY 03/04/25 03/04/25 History release insulin glargine 100 unit/mL (3 43 unit subcut QPM 03/04/25 03/04/25 History mL) subcutaneous pen (Lantus Solostar U-100 Insulin) Past Med/Surg History Problem List (Updated 03/05/25 @ 01:40 by Austen Prescott MD) Cellulitis of right lower extremity CHF (congestive heart failure) (Acute) Anemia (Acute) Dyspnea (Acute) Abnormal plain x-ray of ankle Routine gynecological examination Stage III pressure ulcer of right ankle (Acute) Hx of recurrent urinary tract infection Incomplete bladder emptying Hepatic steatosis per 01/21/25 liver ultrasound Hepatomegaly per 01/11/25 liver ultrasound IBS (irritable bowel syndrome) Edema of lower extremity (HFpEF) heart failure with preserved ejection fraction Chronic anemia Leukocytosis Left above-knee amputee Controlled type 2 diabetes mellitus Osteoporosis GERD without esophagitis Dyslipidemia Paroxysmal atrial fibrillation Dx 2015 Taking Xarelto Type 2 diabetes mellitus with obesity Vitamin B12 deficiency (Acute) Diabetes mellitus with diabetic polyneuropathy B/L hands and feet CAD (coronary artery disease) CABG x3 (2014) Medical History History of atrial fibrillation f/u sapna oropeza Hx of pulmonary edema 02/2024, "[place] [facility] [facility] [place] and Lasix. no longer on either one" Hx of osteoporosis Hx of gastroesophageal reflux (GERD) Controlled type 2 diabetes mellitus IDDM CAD (coronary artery disease) CABG x3 (2014) Above knee amputation of left lower extremity Fracture of medial malleolus (~02/20/24) left knee/acute periprosthetic distal left femur fracture and left ankle/acute left medial malleolar fracture Sheila-prosthetic femoral shaft fracture (~02/20/24) left knee/acute periprosthetic distal left femur fracture and left ankle/acute left medial malleolar fracture History of Clostridium difficile infection C. diff positive 02/05/24 and is currently on treatment. Diarrhea resolved ~02/08/24. Antibiotics to be completed 02/17/24. Hypertension Hx of myocardial infarction (2014) CABG x [address] Oropeza Radial scar of left breast Neurogenic bladder only self-caths "if she can't relieve the bladder, very rare occurence" Depression Psoriatic arthritis Diabetic ulcer of right ankle States no current drainage, using bandage Follows with Dr. Sasha Van- infectious disease/wound Clinic Wound culture 01/08/24- MRSA & enterococcus per infectious disease office visit records Urticaria ongoing, takes zyrtec to relieve Rectal incontinence Wears depends History of colon polyps Wheelchair dependence Patient states she can stand and pivot on her own Arthritis Sensorineural hearing loss of both ears Stress incontinence in female Fibromyalgia Osteoarthritis Gout Hypothyroidism Hyperlipidemia Surgical History H/O left breast biopsy (07/08/24) Hx of above knee amputation H/O breast biopsy Hx of flexible sigmoidoscopy (01/2020) Hx of colonoscopy with polypectomy Status post amputation of toe of left foot (05/19/23) History of surgery History of left knee surgery (2009) History of carpal tunnel surgery of left wrist (~2020) History of repair of rotator cuff (03/12/18) History of dilatation and curettage History of bilateral tubal ligation Charcot's joint of foot History of total knee replacement History of ankle surgery History of surgery History of bladder repair surgery History of tooth extraction History of tonsillectomy History of adenoidectomy History of cataract surgery History of coronary artery bypass graft (2014) History of cardiac cath (2014) Family History Mother Family hx of colon cancer Cardiac disorder Colorectal cancer Cancer Hypertension Heart disease Father Cardiac disorder Lung cancer Hypertension Grandmother (Maternal) Stroke Other No family history of adverse response to anesthesia Denies family history of Ovarian cancer Breast cancer Social History Smoking Status: Never smoker Second Hand Exposure: Yes (hx growing up); Do You Dip or Chew Tobacco: No; Hx Alcohol Use: Yes Alcohol type: wine and hard liquor Alcohol Intake Frequency: 2-4 x/Month Hx Substance Use: No Preferred Language: Chilean Communication Ability: Effective Visual Impairment: No Limitations Hearing Ability: Use of Hearing Aid Sales Floor Associate Required: No Beliefs That Will Affect Care: None marital status: Current Living Situation: Spouse current occupational status: retired How many Children do You have: 2 Feels Safe at Home: Yes Diet: diabetic and regular caffeine: No during the past year weight has: increased > 10 lbs Seatbelt Use: always Do you think of yourself as: straight/heterosexual Gender Identity: Female Assistive Devices: Denture - Upper, Glasses, Hearing Aid - Bilateral and Wheelchair Review of Systems Review of Systems: The patient denies chest pain, palpitations, cough, sore throat, fevers, chills, sweats, nausea, vomiting, diarrhea , constipation, abdominal pain, pelvic pain, blood in urine or stool, dysuria, urinary frequency or urgency, lightheadedness, dizziness, headache, memory loss, loss of consciousness, rash, abnormal bruising or bleeding, focal weakness, numbness or tingling in arms or legs, generalized arthralgias or myalgias, back or neck pain, or night sweats. The review of systems is otherwise negative other than for that already noted above, and at least 10 systems have been reviewed. Physical Exam Physical Exam: The patient is awake, alert and oriented 3, well developed and well nourished, normocephalic and atraumatic, lying in bed and in no acute distress. HEENT--PERRL, EOMI, mucous membranes and oropharynx normal. Neck--supple. No JVD. No bruits. Thyroid normal, trachea midline, no adenopathy. Heart--normal S1 and S2. No murmurs, rubs or gallops. Lungs--clear bilaterally, no respiratory distress, no accessory muscle use. Abdomen--normal bowel sounds and soft. Nontender. Nondistended, no hernias or masses, no organomegaly. Extremities-- 1+ bilateral pretibial pitting edema. Dermatologic--normal skin turgor, normal color, no abnormal lymph nodes, no rash. Neurologic--cranial nerves II through XII grossly intact. Rheumatologic--normal range of motion. Psychiatric--normal affect. Results & Data Results & Data Vital Signs (Past 12 Hours) Vital Signs Temp Pulse Pulse Resp BP BP Pulse Ox 03/04/25 21:00 71 16 136/69 94 03/04/25 19:00 66 14 141/63 H 98 03/04/25 18:30 66 16 130/61 97 03/04/25 17:39 67 03/04/25 17:36 67 19 168/69 H 97 03/04/25 17:19 36.5 C 67 24 142/54 H 96 O2 Del Method 03/04/25 21:00 Room Air 03/04/25 19:00 Room Air 03/04/25 18:30 Room Air 03/04/25 17:39 03/04/25 17:36 Room Air 03/04/25 17:19 Room Air Laboratory Results Laboratory Results WBC 11.22 K/ul (4.8-10.8) H 03/04/25 18: RBC 2.57 M/uL (4.20-5.40) L 03/04/25 18: Hgb 8.3 g/dL (12.0-16.0) L 03/04/25 18: Hct 26.8 % (37.0-47.0) L 03/04/25 18: MCV 104.3 fL (80.0-100.0) H 03/04/25 18: MCH 32.3 pg (25.0-34.0) 03/04/25 18: MCHC 31.0 g/dL (32.0-36.0) L 03/04/25 18: RDW Std Deviation 60.7 fL (36.4-46.3) H 03/04/25 18: RDW Coeff of Kristen 16.0 % (11.5-14.5) H 03/04/25 18: Plt Count 195 K/uL (130-400) 03/04/25 18:25 MPV 12.8 fL (9.4-12.4) H 03/04/25 18: Immature Gran % (Auto) 5.3 % 03/04/25 18: Neut % (Auto) 74.0 % 03/04/25 18: Lymph % (Auto) 11.9 % 03/04/25 18: [place]row[place] % (Auto) 7.1 % 03/04/25 18: Eos % (Auto) 1.2 % 03/04/25 18: Baso % (Auto) 0.5 % 03/04/25 18:25 Neut # (Auto) 8.31 K/uL (1.40-6.50) H 03/04/25 18:25 Lymph # (Auto) 1.33 K/uL (1.20-3.40) 03/04/25 18:25 [place]row[place] # (Auto) 0.80 K/uL (0.11-0.59) H 03/04/25 18:25 Eos # (Auto) 0.13 K/uL (0.00-0.50) 03/04/25 18:25 Baso # (Auto) 0.06 K/uL (0.00-0.20) 03/04/25 18:25 Immature Gran # (Auto) 0.59 K/uL (0.01-0.20) H 03/04/25 18:25 Polychromasia 1+ 03/04/25 18:25 Tear Drop Cells 1+ 03/04/25 18:25 PT 11.8 Seconds (9.0-12.0) 03/04/25 18:25 INR 1.1 (0.9-1.1) 03/04/25 18:25 Sodium 139 mmol/L (136-145) 03/04/25 18:25 Potassium 5.1 mmol/L (3.5-5.1) 03/04/25 18:25 Chloride 113 mmol/L (98-107) H 03/04/25 18:25 Carbon Dioxide 17 mmol/L (21-32) L 03/04/25 18:25 Anion Gap 9 (3-11) 03/04/25 18:25 BUN 40 mg/dl (6-23) H 03/04/25 18:25 Creatinine 1.67 mg/dl (0.6-1.2) H 03/04/25 18:25 Est Cr Clr Drug Dosing Not Reportable 03/04/25 18:25 eGFR 30.78 03/04/25 18:25 BUN/Creatinine Ratio 24.0 (10-20) H 03/04/25 18:25 Glucose 195 mg/dl (70-99(Fasting)) H 03/04/25 18:25 Calcium 8.7 mg/dl (8.6-10.3) 03/04/25 18:25 Magnesium 2.3 mg/dl (1.7-2.4) 03/04/25 18:25 Total Bilirubin 0.4 mg/dl (0.2-1.0) 03/04/25 18:25 AST 23 U/L (13-39) 03/04/25 18:25 ALT 22 U/L (7-52) 03/04/25 18:25 Alkaline Phosphatase 98 U/L (34-104) 03/04/25 18:25 Troponin I High Sens 9.1 pg/ml (0-14) 03/04/25 18:25 B-Natriuretic Peptide 912 pg/ml (0-100) H 03/04/25 18:25 Total Protein 7.3 gm/dl (6.0-8.3) 03/04/25 18:25 Albumin 3.4 gm/dl (3.4-5.0) 03/04/25 18: Globulin 3.9 gm/dl (2.5-4.0) 03/04/25 18:25 Albumin/Globulin Ratio 0.9 (0.9-2) 03/04/25 18:25 SARS-CoV-2 (PCR) NEGATIVE (Negative) 03/04/25 21:25 Influenza Type A (PCR) Negative (Neg) 03/04/25 21:25 Influenza Type B (PCR) Negative (Neg) 03/04/25 21:25 RSV (RT-PCR) Negative (Neg) 03/04/25 21:25 Blood Type A Positive 03/04/25 18:58 Antibody Screen NEGATIVE 03/04/25 18:58 Impressions Chest X-Ray 03/04/25 17:58 EXAM: Portable AP chest radiograph TECHNIQUE: AP portable radiograph of the chest was obtained. INDICATION: Shortness of breath Comparison: Chest radiograph November 26, 2024. FINDINGS: LINES and TUBES: None CARDIOVASCULAR: Cardiac silhouette is stably enlarged with redemonstrated post-CABG changes LUNGS/PLEURA: No focal consolidation identified. Bibasilar atelectasis versus scarring. Mild pulmonary vascular congestion and chronic interstitial lung changes appear similar to the previous radiograph. No significant pleural fluid. No discernible pneumothorax. OSSEOUS/OTHER: No displaced acute osseous process identified. IMPRESSION: Postoperative heart redemonstrated with similar congestive changes of the cardiovascular system. Electronically signed by Sanjiv Block 03-04-2025 7:38 PM Code Status & VTE Plan Code Status Full code VTE Prophylaxis Plan VTE Prophylaxis will be ordered: Yes PG Care Time/CCT Total # of Minutes Spent Total Time Spent with Patient: Total time spent is greater than 50% in coordination of care (as documented) at patient's floor/unit and/or counseling patient: Prolonged Care Time 67 minutes Coding Level of Care Code 41040 INT INP/OBS CARE 3/75MIN Diagnoses (HFpEF) heart failure with preserved ejection fraction I50.30 Anemia D64.9 DAVID (acute kidney injury) N17.9 Cellulitis of right lower extremity L03.115
[2025-03-04] MEDS ORDERED: ARTIFICIAL TEARS OP PRN (22:33)
[2025-03-04 22:37] LABS: Influenza A virus by PCR Negative (Neg); Influenza B virus by PCR Negative (Neg); SARS CoV2 RNA(COVID-19) Ceph NEGATIVE (Negative)
[2025-03-04] MEDS: CEFEPIME 2000MG 2,000 MG/20 ML SYR IV STA (23:36)
[2025-03-04] MEDS: SODIUM ZIRCONIUM CYCLOSILICATE 10 GM PACKET PO STA (23:37)
[2025-03-05] MEDS: DAPTOmycin 500 MG in SYRINGE 0 ML IV STA (00:06)
[2025-03-05] MEDS ORDERED: DEXTROSE 50% 50 ML SYRINGE IV PRN (03:07)
[2025-03-05] MEDS ORDERED: ACETAMINOPHEN 325 MG TAB PO PRN (03:07)
[2025-03-05] MEDS ORDERED: GLUCOSE 40% GEL 15 GM TUBE PO PRN (03:07)
[2025-03-05] MEDS ORDERED: GLUCAGON FOR INJ 1 MG VIAL SQ PRN (03:07)
[2025-03-05] MEDS ORDERED: CARBOHYDRATES FOR HYPOGLYCEMIA PO PRN (03:07)
[2025-03-05] MEDS ORDERED: GLUCOSE 10 TAB/TUBE PO PRN (03:07)
[2025-03-05] MEDS ORDERED: ONDANSETRON INJ 2 MG/ML 2 ML VIAL IV PRN (03:07)
[2025-03-05] MEDS: LEVOTHYROXINE SODIUM 125 MCG TABLET PO SCH (06:17)
[2025-03-05 06:33] LABS: Hematocrit (blood only) 26.6 % (37.0-47.0); Hemoglobin 8.3 g/dL (12.0-16.0); Immature Granulocytes # (auto) 0.42 K/uL (0.01-0.20); Immature Granulocytes % (auto) 4.0 %; Mean Corpuscular Hemoglobin 32.2 pg (25.0-34.0); Mean Corpuscular Volume 103.1 fL (80.0-100.0); Platelet Count 195 K/uL (130-400); RDW Standard Deviation 59.5 fL (36.4-46.3); Red Blood Count 2.58 M/uL (4.20-5.40); White Blood Count 10.43 K/ul (4.8-10.8)
[2025-03-05 07:00] LABS: INR 1.1 (0.9-1.1); Partial Thromboplastin Time 25 Seconds (21-31); Prothrombin Time 11.9 Seconds (9.0-12.0)
[2025-03-05 07:23] LABS: Alanine Aminotransferase 21.0 U/L (7-52); Albumin Globulin Ratio 1.1 (0.9-2); Albumin Level 3.6 gm/dl (3.4-5.0); Alkaline Phosphatase 88.0 U/L (34-104); Anion Gap 10.0 (3-11); Bilirubin,Total 0.5 mg/dl (0.2-1.0); Blood Urea Nitrogen 39.0 mg/dl (6-23); Calcium 8.9 mg/dl (8.6-10.3); Carbon Dioxide 19.0 mmol/L (21-32); Chloride 113.0 mmol/L (98-107); Creatinine Clr Calc Pharmacy 48.0 ml/min; Globulin 3.3 gm/dl (2.5-4.0); Glucose 121.0 mg/dl (70-99(Fasting)); Iron 17.0 mcg/dl (35-150); Magnesium 2.0 mg/dl (1.7-2.4); Potassium 4.1 mmol/L (3.5-5.1); Sodium 142.0 mmol/L (136-145); Total Iron Binding Cap Calc 363.0 mcg/dl (250-450); Total Protein 6.9 gm/dl (6.0-8.3); Transferrin 259.0 mg/dl (200-360); Transferrin (FE) Percent Satur 5.0 % (15-50)
[2025-03-05 07:44] LABS: Hemoglobin A1C 6.0 % (4.5-5.6)
[2025-03-05] MEDS: FUROSEMIDE 40 MG/4 ML VIAL IV SCH ×2 (07:54→16:59)
[2025-03-05] MEDS: GABAPENTIN 400 MG CAP PO SCH (07:54)
[2025-03-05] MEDS: CEROVITE ADV FORMULA TAB PO SCH (07:54)
[2025-03-05] MEDS: AMIODARONE 200 MG TAB PO SCH (07:54)
[2025-03-05] MEDS: CALCIUM 600MG + VIT D 400 IU TAB PO SCH (07:54)
[2025-03-05] MEDS: VIBEGRON 75 MG TAB PO SCH (07:54)
[2025-03-05] MEDS: METOPROLOL SUCC 50MG EXT REL TAB PO SCH (07:55)
[2025-03-05] MEDS: INSULIN ASPART PER UNIT CHARGE SC SCH (07:57)
[2025-03-05] MEDS ORDERED: CYANOCOBALAMIN COBAMAMIDE SL SCH (09:00)
[2025-03-05] MEDS ORDERED: [UNRECOGNIZED DRUG - OTHER] SL SCH (09:00)
[2025-03-05] MEDS ORDERED: NON-FORMULARY MEDICATION (Vitamins A,C,E-Zinc-Copper [Preservision Areds] 4,296 mcg-226 mg PO SCH (09:00)
[2025-03-05] MEDS ORDERED: LOSARTAN POTASSIUM 50 MG TAB PO SCH (09:00)
[2025-03-05] MEDS: CEFEPIME 2000MG 2,000 MG/20 ML SYR IV SCH (09:47)
[2025-03-05] MEDS: IRON DEXTRAN COMPLEX IV SCH ×2 (09:47→11:24)
[2025-03-05] MEDS ORDERED: IRON DEXTRAN COMPLEX 100 MG in SYRINGE 0 ML IV ONE (11:00)
[2025-03-05] MEDS: SODIUM CHLORIDE 0.9% IV SCH (11:24)
--- NOTE | 2025-03-05 12:17 | Electrocardiogram Report ---
Test Reason : Blood Pressure : */* mmHG Vent. Rate : 66 BPM Atrial Rate : 66 BPM P-R Int : 194 ms QRS Dur : 88 ms QT Int : 440 ms P-R-T Axes : 57 -18 132 degrees QTcB Int : 461 ms Normal sinus rhythm Abnormal ECG When compared with ECG of 16-May-2023 18:39, Questionable change in QRS axis T wave inversion less evident in Lateral leads Confirmed by Keegan Haas ([id number]) on 03/05/2025 12:16:39 PM Referred By: Laura Jackson Confirmed By: Keegan Haas
--- NOTE | 2025-03-05 14:01 | Hospitalist Progress Note ---
Date of Service March 05, 2025 Assessment & Plan (1) (HFpEF) heart failure with preserved ejection fraction: (2) Anemia: (3) DAVID (acute kidney injury): (4) Cellulitis of right lower extremity: Plan 79-year-old woman admitted with acute on chronic HFpEF, DAVID, right lower extremity cellulitis and wounds, severe anemia # Acute on chronic heart failure with preserved ejection fraction (HFpEF) Presented with volume overload and dyspnea/pulmonary edema. - No change in medications, no missed doses but admits to dietary salt indiscretion - Last TTE 11/2024, EF 55-60% - Remains volume overloaded - Continue diuresis with Lasix, increase to 40 mg IV BID - Monitor daily weight, ins and outs, BMP with magnesium level in the morning - Continue metoprolol succinate, hold telmisartan for DAVID # Paroxysmal atrial fibrillation -stable Continue Xarelto, amiodarone, metoprolol succinate. # Right lower extremity cellulitis and right lateral ankle pressure ulcer # stage III right ankle ulcer present on admission Cellulitis substantially improved. - Narrow antibiotics, change to oral cefpodoxime. No purulence so ongoing MRSA coverage not indicated - Continue wound care, elevate right lower extremity # Severe anemia Hemoglobin 8.3. - Does not meet criteria for transfusion - Severely iron deficient and anemic - Treat with 1000 mg IV iron dextran - Referral to outpatient gastroenterology since she has never had EGD or colonoscopy, she is anticoagulated on Xarelto and has had dark stools though no ralf melena or bloody stools - History of B12 deficiency, adequately replaced on oral B12 supplement # Acute kidney injury with mild hyperkalemia and metabolic acidosis. DAVID ca rdiorenal, related to nephrosarca, will improve with diuresis Hyperkalemia resolved after Lasix and Lokelma. - Creatinine improved from 1.8 to 1.5 with diuresis - Monitor urine output, daily AM BMP - Continue to hold ARB # Diabetes type 2 Hold Trulicity and metformin. - Continue insulin glargine and premeal short-acting insulin TID -at goal last 24 hours except for 1 high in the 190s, continue same dosing for today # Hyperlipidemia - Resume atorvastatin since daptomycin was stopped other chronic and stable issues: GERD- continue PPI and famotidine Diabetic polyneuropathy- Continue gabapentin and duloxetine Bladder spasm- Continue Myrbetriq # DVT Prophylaxis: Chronically anticoagulated on Xarelto Medical Complexity: Medical decision making was complex, high risk for clinical deterioration morbidity, or mortality for this encounter. High risk medications include IV antibiotics, IV Lasix, Xarelto She reports that she lives at the [facility] with her . She uses a wheelchair for mobility. she will be fitted with a prosthesis for her left leg she is excited about this and will be after the holidays. Admission and Anticipated Discharge Date Admission Date: March 04, 2025 Subjective Nadia reports feeling better today. Breathing improved but not back to baseline. Less short of breath, no wheezing. Chronic sneezing due to seasonal allergies. No chest pain. Increased urination after Lasix IV, leg edema improved. Redness on right lower anterior arias improved wound nurse visited, wounds dressed. Physical Exam Physical Exam: General Appearance: Normal. Vital signs: Reviewed past 24h vital signs in EMR, unremarkable. HEENT: Within normal limits. Respiratory: Lungs clear to auscultation anteriorly, bibasilar crackles slightly more than a quarter way up. Breathing nonlabored. Cardiovascular: Regular heart rhythm. No murmurs, rubs, or gallops. EJ's are visible sitting bolt upright Gastrointestinal: Abdomen soft NT/ND, normal active bowel tones. Back, Musculoskeletal: Left AKA. Pitting edema of right lower extremity up to above knee. Extremities: Right leg warm and well perfused. Pitting edema of right lower extremity up to above knee. Skin: Warm and dry, no rashes. Mild residual cellulitis on right lower anterior arias. Small wound on right lower anterior arias covered by foam dressing. Chronic ulcer on right lateral ankle covered by foam dressing. Reviewed photos from wound nurse today that arias wound is very small and nonpurulent, the ankle ulcer is about 4 cm in diameter with irregular borders appears to be full-thickness and there is no drainage or erythema Neurological: Awake, alert, oriented x4, very pleasant. Psychiatric: Normal. Results & Data Results & Data Vital Signs (Past 12 Hours) Vital Signs Temp Pulse Pulse Resp BP BP Pulse Ox 03/05/25 12:36 82 18 118/68 96 03/05/25 12:04 36.5 C 84 18 150/86 H 95 03/05/25 11:24 36.8 C 85 18 138/66 93 03/05/25 11:03 03/05/25 08:00 36.9 C 80 16 148/65 H 97 03/05/25 07:05 76 03/05/25 03:07 03/05/25 03:07 36.8 C 76 20 150/68 H 100 03/05/25 02:30 78 03/05/25 02:25 03/05/25 02:15 71 16 142/70 H 97 Pulse Ox O2 Del Method O2 Del Method 03/05/25 12:36 Room Air 03/05/25 12:04 Room Air 03/05/25 11:24 Room Air 03/05/25 11:03 Room Air 03/05/25 08:00 Room Air 03/05/25 07:05 03/05/25 03:07 96 Room Air 03/05/25 03:07 Room Air 03/05/25 02:30 03/05/25 02:25 Room Air 03/05/25 02:15 Room Air Laboratory Results - Labs: - White blood count: 10 - Hemoglobin: 8.3 - Serum iron: 17 - Transferrin saturation: 5% - Potassium: 4.1 - Bicarb: 19 - BUN: 39 - Creatinine: 1.51 - Magnesium: 2 - Hemoglobin A1c: 6.0 - LFTs: Normal - BNP: 912 (03/04/2025) - Vitamin B12: 1300 - RSV: Negative - Influenza: Negative - COVID-19: Negative PG Care Time/CCT Total # of Minutes Spent Total Time Spent with Patient: Total time spent is greater than 50% in coordination of care (as documented) at patient's floor/unit and/or counseling patient: Coding Level of Care Code 56477 SUB INP/OBS CARE 3/50MIN Diagnoses (HFpEF) heart failure with preserved ejection fraction I50.30 Anemia D64.9 DAVID (acute kidney injury) N17.9 Cellulitis of right lower extremity L03.115
[2025-03-05] MEDS: AMOXICILLIN/CLAVULANATE 875 MG TAB PO SCH (17:24)
[2025-03-05] MEDS: LANTUS PER UNIT CHARGE SQ SCH (20:46)
[2025-03-05] MEDS: FLUTICASONE PROPIONATE NA SPR 16 GM BTL NAE SCH (20:48)
[2025-03-05] MEDS: ASCORBIC ACID 500 MG TAB PO SCH (20:49)
[2025-03-05] MEDS: RIVAROXABAN 15 MG TAB PO SCH (20:50)
[2025-03-05] MEDS: FAMOTIDINE 40 MG TABLET PO SCH (20:51)
[2025-03-05] MEDS: ATORVASTATIN 40 MG TAB PO SCH (20:51)
[2025-03-05] MEDS ORDERED: LANTUS PER UNIT CHARGE SQ SCH (21:00)
[2025-03-05] MEDS ORDERED: DAPTOmycin 500 MG in SYRINGE 0 ML IV SCH (22:00)
[2025-03-06 06:23] LABS: Hematocrit (blood only) 25.2 % (37.0-47.0); Hemoglobin 8.1 g/dL (12.0-16.0); Immature Granulocytes # (auto) 0.18 K/uL (0.01-0.20); Immature Granulocytes % (auto) 2.0 %; Mean Corpuscular Hemoglobin 32.9 pg (25.0-34.0); Mean Corpuscular Volume 102.4 fL (80.0-100.0); Platelet Count 189 K/uL (130-400); RDW Standard Deviation 60.1 fL (36.4-46.3); Red Blood Count 2.46 M/uL (4.20-5.40); White Blood Count 9.22 K/ul (4.8-10.8)
[2025-03-06 06:49] LABS: Anion Gap 11 (3-11); Blood Urea Nitrogen 38 mg/dl (6-23); Calcium 8.8 mg/dl (8.6-10.3); Carbon Dioxide 20 mmol/L (21-32); Chloride 109 mmol/L (98-107); Creatinine Clr Calc Pharmacy 27.1 ml/min; Glucose 122 mg/dl (70-99(Fasting)); Magnesium 2.0 mg/dl (1.7-2.4); Sodium 140 mmol/L (136-145)
[2025-03-06] MEDS: ADVANCED PROBIOTIC 625 MG CAPSULE PO SCH (08:04)
[2025-03-06] MEDS: FERROUS SULFATE 325 MG TAB PO SCH (08:06)
--- NOTE | 2025-03-06 15:08 | Hospitalist Progress Note ---
Date of Service March 06, 2025 Assessment & Plan (1) (HFpEF) heart failure with preserved ejection fraction: (2) Anemia: (3) DAVID (acute kidney injury): (4) Cellulitis of right lower extremity: Plan 79-year-old woman admitted with acute on chronic HFpEF, DAVID, right lower extremity cellulitis and wounds, severe anemia # Acute on chronic heart failure with preserved ejection fraction (HFpEF) Presented with volume overload and dyspnea/pulmonary edema. - No change in medications, no missed doses but admits to dietary salt indiscretion. not on diuretic at home - Last TTE 11/2024, EF 55-60% - Remains volume overloaded, -1600 mL past 24 good diuresis - Continue Lasix 40 mg IV BID - Monitor daily weight, ins and outs, BMP with magnesium level in the morning - Continue metoprolol succinate, telmisartan - slight increase in creatinine is related to the effect of adding Bactrim # Paroxysmal atrial fibrillation -stable Continue Xarelto, amiodarone, metoprolol succinate. # Right lower extremity cellulitis and right lateral ankle pressure ulcer # stage III right ankle ulcer present on admission Cellulitis resolved - complete a total of 5 days of antibiotics with oral Bactrim - Continue wound care, elevate right lower extremity # Severe anemia Hemoglobin stable at 8 - Does not meet criteria for transfusion - Severely iron deficient and anemic - 1000 mg IV iron dextran on 03/05 - Referral to outpatient gastroenterology since she has never had EGD or colonoscopy, she is anticoagulated on Xarelto and has had dark stools though no ralf melena or bloody stools - History of B12 deficiency, adequately replaced on oral B12 supplement # Acute kidney injury with mild hyperkalemia and metabolic acidosis. DAVID cardiorenal, related to nephrosarca, will improve with diuresis Hyperkalemia resolved after Lasix and Lokelma. - Creatinine improved from 1.8 to 1.5 with diuresis - Monitor urine output, daily AM BMP - resume ARB, creatinine increased a little bit after starting Bactrim as expected # Diabetes type 2 Hold Trulicity and metformin. - Continue insulin glargine and premeal short-acting insulin TID -at goal last 24 hours except for 1 high in the 190s, continue same dosing for today - significant benefit from GLP-1 agonist because of her diabetes obesity metabolic fatty liver disease and HFpEF # Hyperlipidemia - atorvastatin other chronic and stable issues: GERD- continue PPI and famotidine Diabetic polyneuropathy- Continue gabapentin and duloxetine Bladder spasm- Continue Myrbetriq # DVT Prophylaxis: Chronically anticoagulated on Xarelto Medical Complexity: Medical decision making was complex, high risk for clinical deterioration m orbidity, or mortality for this encounter. High risk medications include IV Lasix, Xarelto She reports that she lives at the [facility] with her . She uses a wheelchair for mobility. she will be fitted with a prosthesis for her left leg she is excited about this and will be after the holidays. Admission and Anticipated Discharge Date Admission Date: March 04, 2025 Subjective 63-year-old female reports slight improvement in respiratory status but significant dyspnea on exertion, especially when mobilizing to the commode. No cough, wheezing, or chest pain. Reports abdominal fullness without nausea or pain. Persistent edema in thigh and right lower leg, firm with some pitting. Right lower arias cellulitis resolved. Small anterior traumatic wound and right lateral ankle ulcer dressed. Treated anemia with 1000 mg iron dextran on 03/05/2025. Hemoglobin stable at 8.1. Needs gastroenterology follow-up for iron deficiency anemia; likely requires scheduled outpatient iron infusions. For metabolic syndrome, diastolic heart failure, and diabetes, GLP-1 agonist deferred to outpatient setting. Physical Exam Physical Exam: General Appearance: Normal. Vital signs: Reviewed past 24h vital signs in EMR, unremarkable. HEENT: Within normal limits. Respiratory: Lungs clear to auscultation anteriorly and posteriorly. Crackles present one-third of the way out, more on the right. No rhonchi, rales, or wheezing. Cardiovascular: Regular rhythm. No murmurs, rubs, or gallops. Gastrointestinal: Abdomen soft, nontender, nondistended. Back, Musculoskeletal: Edema in thigh and right lower leg, firm with some pitting. Extremities: Edema in thigh and right lower leg, firm with some pitting. Skin: Right lower arias cellulitis resolved. Small anterior traumatic wound and right lateral ankle ulcer dressed. Neurological: AOx4, normal speech and mentation, martinez x 4. Psychiatric: Normal. Results & Data Results & Data Vital Signs (Past 12 Hours) Vital Signs Temp Pulse Pulse Resp BP Pulse Ox O2 Del Method 03/06/25 11:18 36.4 C L 75 18 125/64 92 Room Air 03/06/25 09:43 Room Air 03/06/25 07:17 36.8 C 73 18 124/64 92 Room Air 03/06/25 05:31 76 03/06/25 03:27 37.0 C 92 H 20 114/63 93 Room Air Laboratory Results - Laboratory Studies: - Sodium: 148 - Potassium: Hemolyzed - BUN: 38 - Creatinine: 1.67 - Magnesium: 2 - White Blood Count: 9 - Hemoglobin: 8.1 - Potassium: 4.0 PG Care Time/CCT Total # of Minutes Spent Total Time Spent with Patient: Total time spent is greater than 50% in coordination of care (as documented) at patient's floor/unit and/or counseling patient: Coding Level of Care Code 74397 SUB INP/OBS CARE 350MIN Diagnoses (HFpEF) heart failure with preserved ejection fraction I50.30 Anemia D64.9 DAVID (acute kidney injury) N17.9 Cellulitis of right lower extremity L03.115
[2025-03-06] MEDS: AMOXICILLIN/CLAVULANATE 500 MG TAB PO SCH (19:30)
[2025-03-07 06:45] LABS: Hematocrit (blood only) 26.3 % (37.0-47.0); Hemoglobin 8.3 g/dL (12.0-16.0); Immature Granulocytes # (auto) 0.34 K/uL (0.01-0.20); Immature Granulocytes % (auto) 3.5 %; Mean Corpuscular Hemoglobin 32.2 pg (25.0-34.0); Mean Corpuscular Volume 101.9 fL (80.0-100.0); Platelet Count 192 K/uL (130-400); RDW Standard Deviation 59.4 fL (36.4-46.3); Red Blood Count 2.58 M/uL (4.20-5.40); White Blood Count 9.60 K/ul (4.8-10.8)
[2025-03-07 07:12] LABS: Anion Gap 11.0 (3-11); Blood Urea Nitrogen 41.0 mg/dl (6-23); Calcium 8.8 mg/dl (8.6-10.3); Carbon Dioxide 22.0 mmol/L (21-32); Chloride 107.0 mmol/L (98-107); Creatinine Clr Calc Pharmacy 29.3 ml/min; Glucose 107.0 mg/dl (70-99(Fasting)); Magnesium 2.0 mg/dl (1.7-2.4); Potassium 3.7 mmol/L (3.5-5.1); Sodium 140.0 mmol/L (136-145)
[2025-03-07] MEDS: FUROSEMIDE 100 MG in SODIUM CHLORIDE 0.9% 90 ML IV SCH (13:30)
--- NOTE | 2025-03-07 16:21 | Hospitalist Progress Note ---
Date of Service March 07, 2025 Assessment & Plan (1) (HFpEF) heart failure with preserved ejection fraction: (2) Anemia: (3) DAVID (acute kidney injury): (4) Cellulitis of right lower extremity: Plan 79-year-old woman admitted with acute on chronic HFpEF, DAVID, right lower extremity cellulitis and wounds, severe anemia # Acute on chronic heart failure with preserved ejection fraction (HFpEF) Presented with volume overload and dyspnea/pulmonary edema. - No change in medications, no missed doses but admits to dietary salt indiscretion. not on diuretic at home - Last TTE 11/2024, EF 55-60% - Remains volume overloaded, edema improved but still dyspneic with wheezing episodes probably still has 20 pounds of edema and weight only down 1 kg. start Lasix drip 5 mg/h recheck BMP at 6 PM with magnesium - Monitor daily weight, ins and outs, BMP with magnesium level in the morning - Continue metoprolol succinate, telmisartan # Paroxysmal atrial fibrillation -stable Continue Xarelto, amiodarone, metoprolol succinate. # Right lower extremity cellulitis and right lateral ankle pressure ulcer # stage III right ankle ulcer present on admission Cellulitis resolved - complete a total of 5 days of antibiotics with oral Augmentin - Continue wound care, elevate right lower extremity # Severe anemia Hemoglobin stable at 8.3 - Does not meet criteria for transfusion - Severely iron deficient and anemic - 1000 mg IV iron dextran on 03/05 - Referral to outpatient gastroenterology since she has never had EGD or colonoscopy, she is anticoagulated on Xarelto and has had dark stools though no ralf melena or bloody stools - History of B12 deficiency, adequately replaced on oral B12 supplement # Acute kidney injury with mild hyperkalemia and metabolic acidosis. DAVID cardiorenal, related to nephrosarca, will improve with diuresis Hyperkalemia resolved after Lasix and Lokelma. - Creatinine improved from 1.8 to 1.5 with diuresis, stable at 1.55 - Monitor urine output, daily AM BMP - resume ARB # Diabetes type 2 Hold Trulicity and metformin. - Continue insulin glargine and premeal short-acting insulin TID - blood glucoses at goal last 24 hours - significant benefit from GLP-1 agonist because of her diabetes obesity metabolic fatty liver disease and HFpEF # Hyperlipidemia - atorvastatin other chronic and stable issues: GERD- continue PPI and famotidine Diabetic polyneuropathy- Continue gabapentin and duloxetine Bladder spasm- Continue Myrbetriq # DVT Prophylaxis: Chronically anticoagulated on Xarelto Medical Complexity: Medical decision making was complex, high risk for clinical deterioration morbidity, or mortality for this encounter. High risk medications include IV Lasix infusion, Xarelto She reports that she lives at the [facility] with her . She uses a wheelchair for mobility. she will be fitted with a prosthesis for her left leg she is excited about this and will be after the holidays. Admission and Anticipated Discharge Date Admission Date: March 04, 2025 Catherine Zuniga, 79, reports persistent fatigue. Experienced wheezing this morning. Leg edema improved, now with wrinkles on ankles and knees. Weight reduction of 1 kg. Intake-output balance -1200 since yesterday. Physical Exam Physical Exam: General Appearance: Awake, alert, oriented x4, pleasant. Vital signs: Reviewed past 24h vital signs in EMR, unremarkable. HEENT: Within normal limits. Respiratory: Clear anteriorly, significant dependent crackles posteriorly. Crackles throughout right lung and one-third up left lung. No wheezing. Cardiovascular: Regular rhythm, no murmurs, rubs, or gallops. Gastrointestinal: Protuberant, soft, nontender, nondistended. Genitourinary: Lymphatic: Back, Musculoskeletal: Dependent edema from feet to buttocks. Extremities: warm and well perfused, no LE edema. Skin: Warm, well perfused. No rashes. Right arias wound dressed, no cellulitis, erythema, or induration. Right lateral ankle pressure ulcer dressed. Neurological: Awake, alert, oriented x4, pleasant. Psychiatric: Normal. Other observations: Results & Data Results & Data Vital Signs (Past 12 Hours) Vital Signs Temp Pulse Pulse Resp BP Pulse Ox O2 Del Method 03/07/25 15:15 36.8 C 73 20 124/69 90 Room Air 03/07/25 10:55 36.8 C 71 19 106/57 L 94 Room Air 03/07/25 07:16 36.6 C 70 21 112/62 92 Room Air 03/07/25 05:47 70 Laboratory Results - Labs: - White blood count: 9 - Hemoglobin: 8.3 - Sodium: 140 - Potassium: 3.7 - Creatinine: 1.55 - Magnesium: 2.0 PG Care Time/CCT Total # of Minutes Spent Total Time Spent with Patient: Total time spent is greater than 50% in coordination of care (as documented) at patient's floor/unit and/or counseling patient: Coding Level of Care Code 00425 SUB INP/OBS CARE 50MIN Diagnoses (HFpEF) heart failure with preserved ejection fraction I50.30 Anemia D64.9 DAVID (acute kidney injury) N17.9 Cellulitis of right lower extremity L03.115
[2025-03-07 18:52] LABS: Anion Gap 11.0 (3-11); Blood Urea Nitrogen 46.0 mg/dl (6-23); Calcium 8.9 mg/dl (8.6-10.3); Carbon Dioxide 21.0 mmol/L (21-32); Chloride 105.0 mmol/L (98-107); Creatinine Clr Calc Pharmacy 28.9 ml/min; Glucose 180.0 mg/dl (70-99(Fasting)); Potassium 4.2 mmol/L (3.5-5.1); Sodium 137.0 mmol/L (136-145)
[2025-03-08 07:22] LABS: Anion Gap 12.0 (3-11); Blood Urea Nitrogen 47.0 mg/dl (6-23); Calcium 9.1 mg/dl (8.6-10.3); Carbon Dioxide 23.0 mmol/L (21-32); Chloride 103.0 mmol/L (98-107); Creatinine Clr Calc Pharmacy 28.2 ml/min; Glucose 129.0 mg/dl (70-99(Fasting)); Potassium 3.7 mmol/L (3.5-5.1); Sodium 138.0 mmol/L (136-145)
[2025-03-08] MEDS: MAGNESIUM SULFATE / D5W 1 GM/100 ML BAG IV ONE (08:56)
[2025-03-08] MEDS: MAGNESIUM OXIDE 400 MG TAB PO ONE (09:11)
[2025-03-08] MEDS: LOSARTAN POTASSIUM 50 MG TAB PO SCH (09:19)
[2025-03-08] MEDS: POTASSIUM CHLORIDE CRTAB 20 MEQ TABCR PO SCH (09:51)
--- NOTE | 2025-03-08 14:26 | Hospitalist Progress Note ---
Date of Service March 08, 2025 Assessment & Plan (1) (HFpEF) heart failure with preserved ejection fraction: (2) Anemia: (3) DAVID (acute kidney injury): (4) Cellulitis of right lower extremity: Plan 79-year-old woman admitted with acute on chronic HFpEF, DAVID, right lower extremity cellulitis and wounds, severe anemia # Acute on chronic heart failure with preserved ejection fraction (HFpEF) Presented with volume overload and dyspnea/pulmonary edema. - No change in medications, no missed doses but admits to dietary salt indiscretion. not on diuretic at home - Last TTE 11/2024, EF 55-60% - she is having better diuresis on Lasix drip at 5 mg/h, edema improved and dyspnea finally improved a bit. She remains volume overloaded. We will check a BMP at 5 PM and in the morning - Monitor daily weight, ins and outs, BMP with magnesium level in the morning - Continue metoprolol succinate, telmisartan # Paroxysmal atrial fibrillation -stable Continue Xarelto, amiodarone, metoprolol succinate. # Right lower extremity cellulitis and right lateral ankle pressure ulcer # stage III right ankle ulcer present on admission Cellulitis resolved - complete a total of 5 days of antibiotics with oral Augmentin - Continue wound care, elevate right lower extremity # Severe anemia Hemoglobin stable at 8.3 - Does not meet criteria for transfusion - Severely iron deficient and anemic - 1000 mg IV iron dextran on 03/05 - Referral to outpatient gastroenterology since she has never had EGD or colonoscopy, she is anticoagulated on Xarelto and has had dark stools though no ralf melena or bloody stools - History of B12 deficiency, adequately replaced on oral B12 supplement # Acute kidney injury with mild hyperkalemia and metabolic acidosis. DAVID cardiorenal, related to nephrosarca, will improve with diuresis Hyperkalemia resolved after Lasix and Lokelma. - Creatinine improved from 1.8 to 1.5 with diuresis, stable at 1.55 - Monitor urine output, daily AM BMP continue ARB # Diabetes type 2 Hold Trulicity and metformin. - Continue insulin glargine and premeal short-acting insulin TID - blood glucoses at goal last 24 hours - significant benefit from GLP-1 agonist because of her diabetes obesity metabolic fatty liver disease and HFpEF, question whether she would do better on tirzepatide for weight loss # Hyperlipidemia - atorvastatin other chronic and stable issues: GERD- continue PPI and famotidine Diabetic polyneuropathy- Continue gabapentin and duloxetine Bladder spasm- Continue Myrbetriq # DVT Prophylaxis: Chronically anticoagulated on Xarelto Medical Complexity: Medical decision making was complex, high risk for clinical deterioration morbidity, or mortality for this encounter. High risk medications include IV Lasix infusion, Xarelto She reports that she lives at the [facility] with her . She uses a wheelchair for mobility. she will be fitted with a prosthesis for her left leg she is excited about this and will be after the holidays. Admission and Anticipated Discharge Date Admission Date: March 04, 2025 Subjective 63-year-old female with acute on chronic HFpEF. On Lasix drip at 5 mg/h, resulting in better diuresis, improved breathing, and reduced edema. Still short of breath, improved but not back to baseline. No chest pain. Moderate to large bowel movement. Abdominal girth unchanged. Physical Exam Physical Exam: General Appearance: Normal. Vital signs: Reviewed past 24h vital signs in EMR, unremarkable. HEENT: Within normal limits. Respiratory: Bilateral anterior crackles, especially on the right. Bilateral posterior crackles, three-quarters up on the right, one-quarter to one-third up on the left. No wheezing. Sounds less tight. Cardiovascular: Regular heart rhythm, no murmurs, rubs, or gallops. Neck veins not visible. Gastrointestinal: Protuberant, soft, nontender, nondistended abdomen. No abdominal wall edema. Back, Musculoskeletal: Significant buttock/posterior thigh edema. Extremities: Lower extremities warm, well perfused. Right lower extremity edema improved, 1+ edema remaining. Skin: Right anterior arias cellulitis resolved. Wounds dressed. Neurological: Awake, alert, oriented x4. Psychiatric: Normal. Results & Data Results & Data Vital Signs (Past 12 Hours) Vital Signs Temp Pulse Pulse Resp BP Pulse Ox O2 Del Method 03/08/25 13:01 69 03/08/25 10:39 36.6 C 68 20 110/61 94 Room Air 03/08/25 07:10 36.5 C 66 20 110/60 94 Room Air 03/08/25 05:46 69 03/08/25 03:50 36.7 C 72 18 115/67 96 Room Air Laboratory Results - Laboratory Studies: - Potassium: 3.7 - BUN: 47 - Creatinine: 1.59 - Magnesium: 1.9 PG Care Time/CCT Total # of Minutes Spent Total Time Spent with Patient: Total time spent is greater than 50% in coordination of care (as documented) at patient's floor/unit and/or counseling patient: Coding Level of Care Code 96475 SUB INP/OBS CARE 3/50MIN Diagnoses (HFpEF) heart failure with preserved ejection fraction I50.30 Anemia D64.9 DAVID (acute kidney injury) N17.9 Cellulitis of right lower extremity L03.115
[2025-03-08 17:17] LABS: Anion Gap 10.0 (3-11); Blood Urea Nitrogen 51.0 mg/dl (6-23); Calcium 9.3 mg/dl (8.6-10.3); Carbon Dioxide 24.0 mmol/L (21-32); Chloride 101.0 mmol/L (98-107); Creatinine Clr Calc Pharmacy 24.2 ml/min; Glucose 159.0 mg/dl (70-99(Fasting)); Potassium 4.9 mmol/L (3.5-5.1); Sodium 135.0 mmol/L (136-145)
[2025-03-08] MEDS: NYSTATIN POWDER 15GM BTL EXT PRN (17:23)
[2025-03-09 06:32] LABS: Anion Gap 10.0 (3-11); Blood Urea Nitrogen 56.0 mg/dl (6-23); Calcium 9.0 mg/dl (8.6-10.3); Carbon Dioxide 22.0 mmol/L (21-32); Chloride 105.0 mmol/L (98-107); Creatinine Clr Calc Pharmacy 25.2 ml/min; Glucose 147.0 mg/dl (70-99(Fasting)); Potassium 4.7 mmol/L (3.5-5.1); Sodium 137.0 mmol/L (136-145)
[2025-03-09 07:38] VITALS: RESP 16; TEMP 98.1
[2025-03-09 10:49] VITALS: BP 115/52; PULSE 70; O2SAT 92
--- NOTE | 2025-03-09 12:31 | Discharge Summary ---
Discharge Summary Date of Service March 09, 2025 Principal Dx & Hospital Course #1 = Principal Diagnosis (1) (HFpEF) heart failure with preserved ejection fraction: (2) Anemia: (3) DAVID (acute kidney injury): (4) Cellulitis of right lower extremity: Plan 79-year-old woman admitted with acute on chronic HFpEF, DAVID, right lower extremity cellulitis and wounds, severe anemia # Acute on chronic heart failure with preserved ejection fraction (HFpEF) and right sided heart failure Presented with volume overload and dyspnea/pulmonary edema. Improved with diuresis. Still has some edema but intravascularly euvolemic at discharge - No change in medications, no missed doses but admits to dietary salt indiscretion. not on diuretic at home - Last TTE 11/2024, EF 55-60%, has RV dysfunction - was diuretic resistant, didn't diurese much on lasix 40 IV bid so used lasix drip at 5 mg/h for a few days - Continue metoprolol succinate, telmisartan, GLP-1, added torsemide 20 mg daily with 20 meq of potassium - Referred to CHF clinic for follow up # Paroxysmal atrial fibrillation -stable Continue Xarelto, amiodarone, metoprolol succinate. # Right lower extremity cellulitis and right lateral ankle pressure ulcer # stage III right ankle ulcer present on admission Cellulitis resolved - completed a total of 5 days of antibiotics with ceftriaxone/Augmentin while in hospital - Continue wound care with HH RN # Severe anemia Hemoglobin stable at 8.3 - Does not meet criteria for transfusion - Severely iron deficient and anemic - 1000 mg IV iron dextran on 03/05 - Referral to outpatient gastroenterology since she has never had EGD or colonoscopy, she is anticoagulated on Xarelto and has had dark stools though no ralf melena or bloody stools - History of B12 deficiency, adequately replaced on oral B12 supplement # Acute kidney injury with mild hyperkalemia and metabolic acidosis. DAVID cardiorenal, related to nephrosarca, will improve with diuresis Hyperkalemia resolved after Lasix and Lokelma. - Creatinine improved from 1.8 to 1.5 with diuresis, stable at 1.55 then got up to 1.7 when mildly overdiuresed continue ARB, consider nephrology referral to evaluate for CKD, repeat BMP on follow-up # Diabetes type 2 Continue insulin Trulicity and metformin. Consider change to tirzepatide for more weight loss effect # Hyperlipidemia - atorvastatin other chronic and stable issues: GERD- continue PPI and famotidine Diabetic polyneuropathy- Continue gabapentin and duloxetine Bladder spasm- Continue Myrbetriq She reports that she lives at the [facility] with her . She uses a wheelchair for mobility. she will be fitted with a prosthesis for her left leg she is excited about this and will be after the holidays. Continue home health PT, OT. career placement specialist Notes For Next Care Provider Acute HFpEF, right heart failure Made referral to CHF clinic Consider nephrology referral Consider changing GLP-1 to tirzepatide if insurance allows BMP mag check on follow up, titrate diuretics Made GI referral for iron deficiency anemia, gave 1g iron dextran in hospital Medication Changes From Visit Added torsemide 20 mg daily with potassium Diuretic resistant and doesn't drop potassium much Admission HPI Per Admitting Provider The patient is a 79-year-old female with past medical history including CHF, stage III pressure ulcer of the right ankle, history of recurrent UTIs, complete bladder emptying, hepatomegaly, HFpEF, chronic anemia, diabetes mellitus type 2, GERD, esophagitis, dyslipidemia, PAF, B12 deficiency, diabetic polyneuropathy, and CAD. Patient had laboratories performed at her PCPs office today, received a call later in the day that her labs were abnormal, and that she needed to come to the emergency department for assessment. She was told that she might need a blood transfusion, and she has had a history of receiving transfusions in the past for her chronic anemia. She also notes increased swelling of the bilateral extremities, right greater than left. She denies any recent travels or sick exp osures. Workup in the emergency department included the following abnormal laboratories: Hemoglobin 8.3, potassium 5.1, glucose 195, creatinine 1.67, BNP hide 12, albumin 3.4. Chest x-ray with mild CHF. ED patient received furosemide 40 mg IV, and was then referred for evaluation for admission to hospitalist service Discharge Exam General Appearance: Normal. Vital signs: Reviewed past 24h vital signs in EMR, unremarkable. HEENT: Within normal limits. Respiratory: bibasilar crackles much improved compared to previously. No wheezing. good air movement Cardiovascular: Regular heart rhythm, no murmurs, rubs, or gallops. Neck veins not visible. Gastrointestinal: Protuberant but abdominal girth has reduced no pitting edema of the abdominal wall, soft, nontender, nondistended abdomen. No abdominal wall edema. Back, Musculoskeletal: Significant buttock/posterior thigh edema. Extremities: Lower extremities warm, well perfused. Right lower extremity edema resolved, continues to have some edema in her posterior thighs/buttocks Skin: Right anterior arias cellulitis resolved. Wounds dressed. Neurological: Awake, alert, oriented x4. Psychiatric: Normal. Discharge Plan Discharge Items Patient Disposition: Home - Home Health Services Reason For Visit: ACUTE ON CHRONIC HFpEF, ANEMIA, DAVID, RLE CELLULITI Discharge Diagnosis: Acute on chronic HFpEF, RLE cellulitis, Anemia Condition on Discharge: Good Activity: Resume your previous activity Non-emergency contact: Primary Care Provider and Production Troubleshooter Call non-emergency contact if: you have any medication questions and your symptoms worsen Follow-up/Referrals: Pat Rich MD [Primary Care Provider] - Kathryn Jorge PA-C [Physician Paunch Trimmer] - 03/16/25 10:30 am (03/16/25) Diet: Carb Consistent or DM2 and Low Sodium (2gm) Fluids: 1800ml (7 cups) Addtl Attending Provider Instructions: You were treated for acute heart failure - this means your heart isn't working very efficiently, causing fluid buildup on your body (edema) and lungs causing shortness of breath I started diuretic medication (torsemide) to make you urinate more. We will try 20 mg daily but the dose will probably need adjustment so I made referral to the cardiology heart failure clinic for close follow up. You completed antibiotics for a mild cellulitis (skin infection) on right arias. This has resolved. Continue home health PT and OT and RN for wound care for your right ankle It was a pleasure taking care of you in the hospital, Tamar Larson MD Pending Studies at Discharge: No Stand-Alone Forms: My [facility] [place], Smoking Cessation Medications and DC Order Prescriptions: New nystatin [Nystop] 100,000 unit/gram Powder 1 applic EXT BID PRN (Reason: yeast rash) Qty: 30 1RF torsemide 20 mg tablet 20 mg PO QAM Qty: 30 0RF potassium chloride 20 mEq tablet extended release 20 meq PO DAILY Qty: 30 0RF Continued Zyrtec 10 mg capsule 10 mg PO DAILY PRN (Reason: Allergy Symptoms) nitroglycerin [Nitrostat] 0.4 mg tablet, sublingual 0.4 mg Sublingual Q5M PRN (Reason: Chest Pain) Qty: 25 6RF Patient Comments: last use last week 2 doses Rx Instructions: Call 911 for chest pain that exceeds 3 doses esomeprazole magnesium 40 mg capsule,delayed release(DR/EC) 40 mg PO QAM Qty: 90 3RF amiodarone 200 mg tablet 200 mg PO QAM Qty: 90 3RF atorvastatin 80 mg tablet 80 mg PO HS Qty: 90 3RF Myrbetriq 50 mg tablet extended release 24 hr 50 mg PO QAM Qty: 90 3RF levothyroxine 125 mcg tablet 125 mcg PO QAM Qty: 90 1RF Xarelto 15 mg tablet 15 mg PO QPM Qty: 90 3RF Hold Instructions: Resume on 07/11/24. Rx Instructions: must administer with evening meal allopurinol 100 mg tablet 100 mg PO QAM Qty: 90 3RF insulin aspart U-100 [Novolog FlexPen U-100 Insulin] 100 unit/mL (3 mL) insulin pen 16 unit subcut TID MDD 48 units Qty: 45 3RF Trulicity 4.5 mg/0.5 mL pen injector 4.5 mg subcut Q7D Qty: 2 5RF Rx Instructions: 03/04/25 : TAKE THIS MED EVERY SUNDAY methenamine hippurate 1 gram tablet 1 g PO BID Qty: 180 3RF valacyclovir 500 mg tablet 500 mg PO QPM Qty: 90 2RF telmisartan 40 mg tablet 40 mg PO DAILY Qty: 90 3RF famotidine 40 mg tablet 40 mg PO QPM Qty: 90 3RF metformin 500 mg tablet 500 mg PO QPM Qty: 90 3RF metoprolol succinate 50 mg tablet extended release 24 hr 50 mg PO BID Qty: 180 3RF PreserVision AREDS 4,296 mcg-226 mg-90 mg capsule 1 cap PO BID fluticasone propionate 50 mcg/actuation spray,suspension 1 spray intranasal QPM Rx Instructions: administer into each nostril multivitamin Tablet 1 tab PO QAM Patient Comments: take late in the am gabapentin 400 mg Capsule 400 mg PO TID cyanocobalamin-cobamamide [B-12 Plus] 5,000-100 mcg Tablet, Sublingual 1,000 mcg sublingual QAM calcium carbonate-vitamin D3 [Calcium 500 + D] 500 mg(1,250mg) -200 unit tablet 3 tab PO QAM Patient Comments: chewables ascorbic acid (vitamin C) [Vitamin C] 500 mg Tablet 500 mg PO QPM Patient Comments: noon time prednisone 5 mg Tablet 5 mg PO QAM ferrous sulfate [iron] 325 mg (65 mg iron) tablet 325 mg PO Q OTHER DAY Patient Comments: takes late morning cyclosporine [Restasis] 0.05 % Dropperette 1 drp OPB Q12H insulin glargine [Lantus Solostar U-100 Insulin] 100 unit/mL (3 mL) insulin pen 43 unit subcut QPM Patient Comments: pt stated taking 45 units at HS as of 07/04/24 duloxetine 30 mg capsule,delayed release(DR/EC) 30 mg PO DAILY No Action (DME) OneTouch Verio test strips Strip See Rx Instructions .ROUTE .MEDSUPPLY Qty: 100 5RF Dose Instruction: As directed Rx Instructions: test 3x a day (DME) lancets [OneTouch Delica Plus Lancet] 30 gauge misc See Rx Instructions miscellaneous .MEDSUPPLY Qty: 100 5RF Rx Instructions: change new needle 3x a day (DME) blood-glucose meter [OneTouch Verio Flex meter] Misc See Rx Instructions .ROUTE .MEDSUPPLY Qty: 1 0RF Rx Instructions: As directed (DME) pen needle, diabetic [BD Daly 2nd Gen Pen Needle] 32 gauge x 5/32" needle See Rx Instructions .ROUTE .MEDSUPPLY Qty: 150 5RF Rx Instructions: Change new pen needle 4 x a day (DME) FreeStyle Giselle 3 [place] Misc See Rx Instructions .Route Rx Instructions: As directed Discharge Orders: Discharge Order- CHF (Routine); Ordered 03/09/25 Ordered By: Tamar Larson Admission Data Admit Date/Time: 03/04/25 21:26 Attending Provider: Tamar Larson Admit Provider: Austen Prescott Primary Care Provider: Pat Rich Other Providers: Austen Prescott; Kathryn Jorge Other Interventions: Discharge Summary Assessment (RN) Last Done: 03/09/25 13:54 Hospital Stay Data Consultations 03/04/25 20:43 ED Decision to Admit Stat 03/09/25 12:12 [facility] Referral Routine Pending Results Patient Have Any Pending Studies at Discharge: No Discharge Instructions Given to Patient (Per Discharging Provider) You were treated for acute heart failure - this means your heart isn't working very efficiently, causing fluid buildup on your body (edema) and lungs causing shortness of breath I started diuretic medication (torsemide) to make you urinate more. We will try 20 mg daily but the dose will probably need adjustment so I made referral to the cardiology heart failure clinic for close follow up. You completed antibiotics for a mild cellulitis (skin infection) on right arias. This has resolved. Continue home health PT and OT and RN for wound care for your right ankle It was a pleasure taking care of you in the hospital, Tamar Larson MD Total Time Total Time Spent Total Time Spent (In Minutes): I personally spent: 40 minutes today on clinical care activities including: reviewing chart notes and vital signs reviewing labs discussion with child care provider examining and counseling the patient writing orders writing prescriptions, discharge instructions documentation Coding Level of Care Code 43529 INP/OBS DISCH >30 MIN Diagnoses (HFpEF) heart failure with preserved ejection fraction I50.30 Anemia D64.9 DAVID (acute kidney injury) N17.9 Cellulitis of right lower extremity L03.115
== END 2025-03-09 16:23 | disposition home health service (06) | DRG 291 ==
LOC: ED 17:09 → SUATTDRO 21:26 → 2S 21:26